=== PATIENT | female | born 1940 | race Caucasian/White ===

== ENCOUNTER 2020-05-10 06:54 | Outpatient (NON) | payer OTHER, SELFPAY ==
[2020-05-11 06:47] LABS: SARS-CoV-2 RNA PCR Negative
== END 2020-05-10 06:55 ==
PROVIDERS: PCP Family Medicine; Visit Provider Family Medicine
DX: Z20.828 Contact with and (suspected) exposure to other viral communicable diseases (principal)
CPT/HCPCS: 87635; C9803; U0003

== ENCOUNTER 2020-09-26 11:53 | Emergency (ER) | payer OTHER, SELFPAY ==
--- NOTE | ~2020-09-26 | CT_ITS ---
EXAMINATION: CT abd pelvis lumbar w con EXAM DATE: 09/26/2020 13:23 INDICATION: Generalized abdominal pain for 3 months. Low back pain. TECHNIQUE: Spiral CT of the abdomen and pelvis and lumbar spine was performed following intravenous i njection of 100 mL Omnipaque 350. Axial, coronal and sagittal images were reviewed of abdomen pelvis , and also of lumbar spine. The dose-length product (DLP) for this examination was 959.03 mGy-cm. T he exposure was tailored according to patient size (auto mA exposure control), and iterative reconstr uction (ASIR) was used as additional dose reduction technique. There is no prior study for compariso n. FINDINGS: There is a 2.5 cm hemangioma within segment 7, and 2 flash filling hemangiomas measuring ab out a centimeter in other segments. The liver, spleen, adrenal glands and pancreas are otherwise unre markable. Gallbladder is unremarkable. No biliary obstruction. Portal and splenic veins are paten t. Kidneys enhance symmetrically. There is no hydronephrosis. There is mild left renal atrophy. Th e uterus is not identified and has likely been surgically resected. The bladder is unremarkable. Th ere is no retroperitoneal or pelvic lymphadenopathy. There is moderate scattered arteriosclerotic d isease. The appendix is normal. The stomach and small bowel are unremarkable. There is moderate amount of c olonic stool. No free intraperitoneal gas. The heart is normal in size. There are no pericardial or pleural effusions. The lung bases are unremarkable. Lumbar spine demonstrates moderate disc disease L3-4 and moderate to severe at L5-S1. There is mild t o moderate disc disease L4-5 with 3 mm anterolisthesis. No spondylolysis. There are no osteoblastic o r osteolytic lesions identified. Mild lumbar levoscoliosis. T12-L1: Disc does not extend beyond the endplate margin. Facet arthropathy: None. Neural foraminal stenosis: No stenosis. Central canal stenosis: No stenosis. L1-L2: Disc does not extend beyond the endplate margin. Facet arthropathy: Mild. Neural foraminal stenosis: No stenosis. Central canal stenosis: No stenosis. L2-L3: There is a mild diffuse disc bulge. Facet arthropathy: Mild. Neural foraminal stenosis: No stenosis. Central canal stenosis: No stenosis. L3-L4: There is a mild to moderate diffuse disc bulge. Facet arthropathy: Severe right, moderate to severe left macro flavum. Neural foraminal stenosis: Moderate right, mild to moderate left. Central canal stenosis: Moderate. L4-L5: There is a mild to moderate diffuse disc bulge. Facet arthropathy: Severe bilateral. Ligamentum flavum enlargement. Neural foraminal stenosis: Moderate left, mild to moderate right. Central canal stenosis: Moderate. L5-S1: There is a mild diffuse disc bulge. Facet arthropathy: Moderate to severe bilateral. Neural foraminal stenosis: Moderate left, mild to moderate right. Central canal stenosis: Mild. IMPRESSION: 1. Liver hemangiomata. 2. Mild left renal atrophy. 3. Moderate ascending and transverse colonic stool. 4. Lumbar spondylosis. 5. No acute findings. Reviewed, dictated and finalized at location A.
--- NOTE | 2020-09-26 12:00 | ED.GENADULT ---
HPI - General Adult General Chief complaint: Unspecified Stated complaint: Chronic Pain All Over Time Seen by Provider: 09/26/20 11:59 History of Present Illness HPI narrative: Chronic low back pain for years. She was getting injections from pain management, but did not like the situation so she did not follow-up. She has a new pain management doctor, but says that they are not doing anything yet. She does have tramadol, but says she does not take it because it does not work. She has numerous medication allergies. She has also had abdominal pain for the past month. It is constant. She is supposed to see a GI doctor next week for this. She also reports that she does not usually wear normal clothes because the pressure on her skin causes too much pain. Related Data Home Medications Medication Instructions Recorded Confirmed omeprazole 20 mg capsule,delayed 20 mg PO DAILY 05/29/19 08/09/20 release ascorbate calcium (vitamin C) 500 500 mg PO DAILY 10/06/19 08/09/20 mg tablet aspirin 81 mg tablet,delayed 81 mg PO DAILY 10/06/19 08/09/20 release clobetasol 0.05 % topical ointment 1 applic TOPICAL BID 10/06/19 08/09/20 fish, borage, flaxseed oils-omega See Rx Instructions PO BID cap 10/06/19 08/09/20 3,6,9 comb no.1 1,200 mg capsule glucosamine [id number] See Rx Instructions PO DAILY 10/06/19 08/09/20 400 mg-200 mg-333 mg tablet tablet loratadine 10 mg tablet 10 mg PO DAILY 10/06/19 08/09/20 magnesium oxide 400 mg (241.3 mg 400 mg PO DAILY 10/06/19 08/09/20 magnesium) tablet multivitamin 1 tablet PO DAILY 10/06/19 08/09/20 naproxen sodium 220 mg tablet 440 mg PO BID tablet 10/06/19 08/09/20 turmeric root extract 500 mg 500 mg PO DAILY 10/06/19 08/09/20 capsule vitamin E (dl, acetate) 400 unit 400 unit PO DAILY 10/06/19 08/09/20 capsule Allergies Allergy/AdvReac Type Severity Reaction Status Date / Time doxycycline Allergy Severe Itching Verified 10/02/20 10:23 alprazolam Allergy Intermediate Other Verified 10/02/20 10:23 dexchlorpheniramine Allergy Intermediate Other Verified 10/02/20 10:23 minocycline Allergy Intermediate Itching, Verified 10/02/20 10:23 HIVES phenylephrine Allergy Intermediate Other Verified 10/02/20 10:23 scopolamine Allergy Intermediate Other Verified 10/02/20 10:23 amlodipine Allergy Mild Other Verified 10/02/20 10:23 brompheniramine Allergy Mild other Verified 10/02/20 10:23 carbinoxamine Allergy Mild Other Verified 10/02/20 10:23 carboxymethylcellulose sodium Allergy Mild Other Verified 10/02/20 10:23 duloxetine Allergy Mild Unknown Verified 10/02/20 10:23 indomethacin Allergy Mild Unknown Verified 10/02/20 10:23 linaclotide Allergy Mild Other Verified 10/02/20 10:23 nabumetone Allergy Mild Unknown Verified 10/02/20 10:23 propoxyphene Allergy Mild Itching Verified 10/02/20 10:23 rofecoxib Allergy Mild Swelling, Verified 08/27/20 14:52 WATER RETENTION sulfamethoxazole Allergy Mild Unknown Verified 08/27/20 14:52 terbinafine Allergy Mild Unknown Verified 08/27/20 14:52 terfenadine Allergy Mild Nausea Verified 08/27/20 14:52 tramadol Allergy Mild Other Verified 08/27/20 14:52 trimethoprim Allergy Mild Unknown Verified 08/27/20 14:52 valdecoxib Allergy Mild Unknown Verified 08/27/20 14:52 chlorpheniramine AdvReac Intermediate HARD TO Verified 08/27/20 14:52 AWAKEN phenylpropanolamine AdvReac Intermediate Other Verified 08/27/20 14:52 amitriptyline AdvReac Mild Other Verified 08/27/20 14:52 codeine AdvReac Mild Nervousness, Verified 08/27/20 14:52 HEART RACES, HEAD FEELS STRANGE diclofenac AdvReac Mild HEARTBURN Verified 08/27/20 14:52 levofloxacin AdvReac Mild Nausea and Verified 08/27/20 14:52 Vomiting oxybutynin AdvReac Mild Rash Verified 08/27/20 14:52 prednisone AdvReac Mild Weakness, Verified 08/27/20 14:52 Unable to Eat ramelteon AdvReac Mild Nausea Verified 08/27/20 14:52 trazodone AdvReac Mild Restless Verified 08/27/20 14:52
[2020-09-26 12:01] VITALS: BP 175/80; PULSE 82; RESP 15; TEMP 36.7; O2SAT 97
[2020-09-26 12:53] LABS: Basophils Percent Auto 0.4 % (0.2-1.2); Eosinophils Absolute Auto 0.1 K/mm3 (0-0.3); Eosinophils Percent Auto 1.6 % (0-4.4); Hemoglobin 12.3 g/dL (12.0-15.0); Immature Granulocyte Absolute 0.02 K/mm3 (0.00-0.031); Immature Granulocyte Percent A 0.4 % (0-0.5); Lymphocytes Absolute Auto 1.82 K/mm3 (0.9-3.2); Lymphocytes Percent Auto 32.4 % (18.3-44.2); Mean Corpuscular HGB Conc 34.2 g/dl (32-36); Mean Corpuscular Hemoglobin 30.8 pg (26-34); Mean Platelet Volume 9.8 fl (7.4-10.4); Monocytes Absolute Auto 0.8 K/mm3 (0.1-0.6); Monocytes Percent Auto 13.3 % (2.6-8.5); Neutrophils Absolute Auto 2.9 K/mm3 (1.3-6.7); Neutrophils Percent Auto 51.9 % (45.5-73.1); Platelet Count Result 261 k/mm3 (150-375); Red Cell Distribution Width 14.6 % (11.5-14.5); White Blood Count 5.6 K/mm3 (4.5-10.0)
[2020-09-26 13:13] LABS: Add Urine Microscopic? YES; Appearance Urine Cloudy (Clear); Bilirubin Urine Negative (Negative); Blood Urine Negative (Negative); Color Urine Yellow (Yellow); Glucose Urine UA Negative (Negative); Ketones Urine Negative (Negative); Leukocyte Esterase Ur Negative LEU/UL (Negative); Mucus Urine Rare /lpf; Nitrate Urine Negative (Negative); Protein Urine 1+ mg/dL (Negative); RBC Urine 0-2 /hpf (0-2); Specific Grav Ur 1.014 (1.001-1.035); Squamous Epithelial Cell Urine Many /hpf (Few); Urobilinogen Urine Negative mg/dL (<2.0); WBC Urine 0-3 /hpf
[2020-09-26 13:17] LABS: Estimated CRCL calculation 59 ml/min; Estimated Glomerular Filt Rate > 60
[2020-09-26 13:59] VITALS: BP 189/77; PULSE 88; RESP 16; O2SAT 99
[2020-09-26 14:15] LABS: Alanine Aminotransferase 15 U/L (4-35); Albumin Level 4.3 g/dL (3.5-5.1); Alkaline Phosphatase 63 U/L (38-126); Anion Gap 7 mmol/L (8-16); Aspartate Amino Transferase 23 U/L (14-36); Bilirubin,Total 0.4 mg/dL (0.2-1.3); Blood Urea Nitrogen 18 mg/dL (7-17); Calcium 9.1 mg/dL (8.4-10.2); Carbon Dioxide 33 mmol/L (22-30); Chloride 94 mmol/L (98-107); Estimated CRCL calculation 53 ml/min; Estimated Glomerular Filt Rate 60; Glucose 107 mg/dL (65-105); Lipase 141 U/L (23-300); Sodium 134 mmol/L (137-145)
[2020-09-26] MEDS: MAGNESIUM CITRATE 300 ML BTL PO (14:50)
[2020-09-26 15:23] LABS: Potassium 3.6 mmol/L (3.4-5.0)
[2020-09-26 16:45] VITALS: BP 180/90; PULSE 77; RESP 16; O2SAT 97
== END 2020-09-26 16:50 | disposition home or self-care (01) ==
PROVIDERS: Emergency Provider Emergency Medicine; PCP Family Medicine
DX: K59.00 Constipation, unspecified (principal); M54.5 Low back pain; G89.29 Other chronic pain; M79.7 Fibromyalgia; M35.3 Polymyalgia rheumatica; Z79.82 Long term (current) use of aspirin
CPT/HCPCS: 36415; 72132; 74177; 80053; 81001; 83690; 85025; 99284; A9270; Q9967

== ENCOUNTER 2020-10-03 10:47 | Outpatient (CLI) | payer OTHER, SELFPAY | END 2020-10-03 10:48 | disposition home or self-care (01) | LOC: ANHCOVIDVC 10:47 | PROVIDERS: PCP Family Medicine | DX: Z23 Encounter for immunization (principal) | CPT/HCPCS: 0001A; 91300 ==

== ENCOUNTER 2020-10-24 10:43 | Outpatient (CLI) | payer OTHER, SELFPAY | END 2020-10-24 10:44 | disposition home or self-care (01) | LOC: ANHCOVIDVC 10:43 | PROVIDERS: PCP Family Medicine | DX: Z23 Encounter for immunization (principal) | CPT/HCPCS: 0002A; 91300 ==

== ENCOUNTER → 2021-06-03 09:54 | Outpatient (CLI) | payer OTHER, SELFPAY ==
--- NOTE | ~2021-06-03 | XR_ITS ---
EXAMINATION: XR hip RT min 2V DATE: 06/03/2021 10:39 INDICATION: Right hip pain. TECHNIQUE: 2 views of right hip were obtained. COMPARISON: CT abdomen and pelvis 09/26/2020 FINDINGS: There is lumbar levocurvature and severe spondylosis. No fracture. Osteitis pubis is noted. There is mild right hip osteoarthritis. IMPRESSION: 1. Mild right hip osteoarthritis. Reviewed, dictated and finalized at location A. 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
== END ==
PROVIDERS: PCP Family Medicine; Visit Provider Nurse Practitioner Family
DX: M16.11 Unilateral primary osteoarthritis, right hip (principal); M86.8X8 Other osteomyelitis, other site; M47.816 Spondylosis without myelopathy or radiculopathy, lumbar region
CPT/HCPCS: 73502

== ENCOUNTER → 2022-07-27 15:26 | Outpatient (CLI) | payer OTHER, SELFPAY ==
--- NOTE | ~2022-07-27 | MR_ITS ---
MRI of the lumbar spine Clinical History: Back pain Technique: Axial T2-weighted images, and sagittal T1-weighted, T2-weighted, and T2 fat-sat images wer e acquired. COMPARISON: 07/21/2018 Findings: No acute fracture evident. There is probable minimal grade 1 anterolisthesis of L3 over L4. There is severe L3-L4 degenerative disc change with probable reactive marrow edema signal about this disc space. No definite evidence for osteomyelitis/discitis. No aggressive lesion clearly identified . Remaining bone marrow signals are essentially unremarkable. At L1-L2, there is no disc bulge or herniation. There is mild facet joint degenerative change. No spi nal canal stenosis or neural foraminal narrowing. At L2-L3, there is no disc bulge or herniation. There is mild facet joint degenerative change. There is no spinal canal stenosis or neural foraminal narrowing. At L3-L4, there is disc bulge and facet arthropathy, resulting in focal moderate thecal sac compressi on. There is severe right neural foraminal compromise and mild left neural foraminal compromise. At L4-L5, there is disc bulge and facet arthropathy. No spinal canal stenosis. There is severe left n eural foraminal compromise and mild right neural foraminal compromise. At L5-S1, there is left foraminal disc bulge. There is facet arthropathy. No spinal canal stenosis. T here is severe left neural foraminal narrowing. Right neural foramen preserved. Paravertebral soft tissues are unremarkable. Impression: Severe degenerative disc change at L3-L4 with associated reactive marrow signal changes and minimal g rade 1 anterolisthesis. Multifactorial moderate thecal sac compression L3-L4 with bilateral neural foraminal narrowing, right worse than left. Severe left neural foraminal narrowing at L4-L5 and L5-S1. Reviewed, dictated and finalized at location . N GROWER Impression: Severe degenerative disc change at L3-L4 with associated reactive marrow signal changes and minimal grade 1 anterolisthesis. Multifactorial moderate thecal sac compression L3-L4 with bilateral neural fora lacho narrowing, right worse than left. Severe left neural foraminal narrowing at L4-L5 and L5-S1.
== END ==
PROVIDERS: PCP Emergency Medicine; Visit Provider Emergency Medicine
DX: M48.07 Spinal stenosis, lumbosacral region (principal); M54.9 Dorsalgia, unspecified; G89.29 Other chronic pain; G95.20 Unspecified cord compression
CPT/HCPCS: 72148

== ENCOUNTER 2023-02-02 09:28 | Outpatient (CLI) | payer OTHER, SELFPAY ==
--- NOTE | 2023-02-02 09:33 | ECG_ITS ---
Measurements Intervals [place] Rate: 67 P: 27 MT: 154 QRS: -10 QRSD: 97 T: 61 QT: 417 QTc: 442 Interpretive Statements SINUS RHYTHM MODERATE VOLTAGE CRITERIA FOR LVH, CONSIDER NORMAL VARIANT [MEETS CRITERIA IN ONE OF: R(aVL), S(V1), R(V5), R(V5/V6)+S(V1)] NO PREVIOUS ECG AVAILABLE FOR COMPARISON Electronically Signed On 02-02-2023 14:40:33 CDT by Faby Grant M.D.
[2023-02-02 10:14] LABS: Appearance Urine Cloudy (Clear); Bacteria Urine Rare /hpf; Bilirubin Urine Negative (Negative); Blood Urine Negative (Negative); Color Urine Yellow (Yellow); Glucose Urine UA Negative (Negative); Ketones Urine Negative (Negative); Leukocyte Esterase Ur 2+ LEU/UL (Negative); Nitrate Urine Negative (Negative); Non Pathogenic Casts 0-2; Protein Urine Negative (Negative); RBC Urine 0-2 /hpf (0-2); Specific Grav Ur 1.011 (1.001-1.035); Squamous Epithelial Cell Urine Moderate /hpf (Few); Urobilinogen Urine 0.2 mg/dL (<2.0); WBC Urine 21-50 /hpf
[2023-02-02 10:23] LABS: INR 0.9; Partial Thromboplastin Time 28.3 SECONDS (22.3-36.8); Prothrombin Time 12.8 Seconds (11.1-14.7)
[2023-02-02 10:24] LABS: Alanine Aminotransferase 24 U/L (6-35); Albumin Level 4.7 g/dL (3.5-5.1); Alkaline Phosphatase 61 U/L (38-126); Anion Gap 7 mmol/L (8-16); Aspartate Amino Transferase 27 U/L (14-36); Bilirubin,Total 0.4 mg/dL (0.2-1.3); Blood Urea Nitrogen 22 mg/dL (7-17); Calcium 9.4 mg/dL (8.4-10.2); Carbon Dioxide 34 mmol/L (22-30); Chloride 96 mmol/L (98-107); Estimated Glomerular Filt Rate 60; Glucose 151 mg/dL (65-110); Potassium 3.5 mmol/L (3.4-5.0); Sodium 137 mmol/L (137-145)
[2023-02-02 10:28] LABS: Add Urine Microscopic? YES
== END 2023-02-02 09:29 | disposition home or self-care (01) ==
LOC: ANHSURGERY 09:31
PROVIDERS: PCP Emergency Medicine; Visit Provider Anesthesiology Pain Medicine
DX: M48.062 Spinal stenosis, lumbar region with neurogenic claudication (principal); I10 Essential (primary) hypertension; G89.4 Chronic pain syndrome; Z01.818 Encounter for other preprocedural examination
CPT/HCPCS: 36415; 80053; 81001; 85610; 85730; 87086; 87088; 93005

== ENCOUNTER 2023-02-04 14:17 | Outpatient (CLI) | payer OTHER, SELFPAY ==
--- NOTE | ~2023-02-04 | XR_ITS ---
EXAMINATION: XR chest 2V Exam Date/Time: 02/04/2023 14:35 CDT HISTORY: SPINAL STENOSIS LUMBAR REGION W NEUROGENIC CLAUDICATION Comparison: 06/20/2018. RESULT: Lines, tubes, and devices: None. Lungs and pleura: Senescent changes, otherwise clear. Cardiomediastinal silhouette: Stable. Other: No acute osseous or upper abdominal finding. IMPRESSION: No acute cardiopulmonary process. Reviewed, dictated and finalized at location K.
== END 2023-02-04 14:18 | disposition home or self-care (01) ==
PROVIDERS: PCP Emergency Medicine; Visit Provider Anesthesiology Pain Medicine
DX: M48.062 Spinal stenosis, lumbar region with neurogenic claudication (principal)
CPT/HCPCS: 71046

== ENCOUNTER 2023-02-08 00:58 | Day surgery (SDC) | payer OTHER, SELFPAY ==
[2023-01-28 15:08] VITALS: BMI 31.1
--- NOTE | 2023-01-28 15:30 | PC.NURSE ---
PRE-OP INSTRUCTIONS, PLEASE READ CAREFULLY Report to the Outpatient Waiting Room, entrance under the green pavilion located off [facility], at time _1000_ on date _02/08/23_. Planned Procedure Time: _1200_. Time changes happen often and if your time is changed the preop area will call you the afternoon before. - You and your visitor will be asked to self-screen and do not enter if you have any COVID symptoms. - A mask is optional within the hospital at this time. Patients may have clear liquids (water, carbonated beverages, clear teas, apple juice) until 3 hours prior to surgery (0900 AM) with a maximum of 20 ounces. - No food from midnight until time of surgery Take the following medications with a SIP of water the morning of surgery: _AMLODIPINE, GABAPENTIN, LEVOTHYROXINE, METOPROLOL, EYE DROPS, & TYLENOL IF NEEDED__ DO NOT STOP ANY OF YOUR OTHER PRESCRIPTION MEDICATIONS PRIOR TO SURGERY ?EXCEPT THE FOLLOWING Medications to discontinue per DR. ROSADO - _ASPIRIN 7 DAYS PRIOR TO SURGERY, Date to take last dose 01/31/23_ Medications to discontinue per ANESTHESIA -_MULTIVITAMIN AND OVER THE COUNTER MEDICATION 3 DAYS PRIOR TO SURGERY, Date to take last dose 02/04/23_ Please no make-up, nail mongolian, hairspray, perfume, deodorant, or body powder the day of surgery. No jewelry (including any body piercings) or valuables the day of surgery, leave them at home. Please take a shower or bath the night before, or the morning of, surgery with an antibacterial soap. Wear comfortable, loose fitting clothing. - Jewelry must be removed prior to entering the operating room. Rings and piercings that are not removed may be cut off. - The hospital will not accept responsibility for valuables. - Please leave all valuables, including medications, at home the day of surgery. If you are going home after surgery, a licensed driver sales must drive you home. - NO public transportation without another adult if you receive anesthesia. - We recommend that an adult stay with you for 24 hours following discharge. - We also recommend that you do not drive, make important decision, drink alcoholic beverages, or take any drugs that were not prescribed by your health care provider for at least 24 hours after your discharge time. Follow any additional instructions given to you from your surgeon. If you or anyone in your household have experienced Covid symptoms in the past week, please notify your surgeon or the nurse liaison at the phone number below for possible testing. Telephone instructions given to _PATIENT_and asked if any additional questions and then verbalized understanding. Patient advised to call surgeon office or pre surgery nurse liaison [phone] if any additional questions.
[2023-02-08] VITALS (9 sets, daily range): BP systolic 118–148; BP diastolic 48–87; PULSE 66–76; RESP 12–16; TEMP 36.2–36.3; O2SAT 97–100
--- NOTE | ~2023-02-08 | XR_ITS ---
EXAMINATION: XR fluoroscopy no charge DATE: 02/08/2023 13:36 INDICATION: Lumbar decompression TECHNIQUE: 3 fluoroscopic images of the lumbar spine were obtained during procedure performed by Dr. Streeter. Radiologist was not present for the imaging or procedure. The amount of fluoroscopy time used d uring this procedure was 12.6 minutes. COMPARISON: None. FINDINGS: Severe spondylosis in the mid to lower lumbar spine with grade 1 anterolisthesis L3 on L4 a nd L4 on L5. Metallic probe projects over the posterior elements at the level of L4-L5. IMPRESSION: 1. Fluoroscopy utilized during neurosurgical procedure at the lumbar spine. See procedure note for fu rther detail. Reviewed, dictated and finalized at location A. IMPRESSION: 1. Fluoroscopy utilized during neurosurgical procedure at the lumbar spine. See procedure note for further detail.
--- NOTE | 2023-02-08 09:53 | WPDHPUPDATE1 ---
History and Physical Update Update Date/Time: 02/08/23 09:53 History and Physical has been reviewed, including an updated exam of the patient. There are NO changes in the patient's condition. Risks, benefits, and alternatives have been discussed and questions answered. Patient agrees to proceed with procedure.
[2023-02-08] MEDS: LACTATED RINGERS 1,000 ML 30 ML IV CONT (10:45)
--- NOTE | 2023-02-08 10:47 | WPDANESEPPF ---
Anes - Initial Pre Proc Eval Procedure: Operation Date: 02/08/23 12:00 Proposed Procedures p Minimal Invasive Lumbar Decompression - Galileo Streeter MD Date/Time: 02/08/23 10:47 Surgeon: Galileo Streeter MD Pre Op Diagnosis: chronic pain, fibromyalgia Patient Data Age: 82 Gender: F Height: 1.71 m Weight: 93.6 kg Last Vital Signs Temp 36.2 C L 02/08/23 10:28 Pulse 67 02/08/23 10:28 Resp 16 02/08/23 10:28 BP 131/70 02/08/23 10:28 Pulse Ox 98 02/08/23 10:28 O2 Del Method Room Air 02/08/23 10:28 Allergies Allergy/AdvReac Type Severity Reaction Status Date / Time doxycycline Allergy Severe Itching Verified 02/08/23 10:15 alprazolam Allergy Intermediate Other-UNABLE Verified 02/08/23 10:15 TO RECALL dexchlorpheniramine Allergy Intermediate Other-ZEUS Verified 02/08/23 10:15 RGY minocycline Allergy Intermediate Itching, Verified 02/08/23 10:15 HIVES phenylephrine Allergy Intermediate Other-ZEUS Verified 02/08/23 10:15 RGY scopolamine Allergy Intermediate Other-ZEUS Verified 02/08/23 10:15 RGY brompheniramine Allergy Mild other- TOO Verified 02/08/23 10:15 DRYING carbinoxamine Allergy Mild Other- TOO Verified 02/08/23 10:15 DRYING carboxymethylcellulose sodium Allergy Mild Other-UNABLE Verified 02/08/23 10:15 TO RECALL duloxetine Allergy Mild Unknown-UNABLE Verified 02/08/23 10:15 TO RECALL indomethacin Allergy Mild Unknown-UNABLE Verified 02/08/23 10:15 TO RECALL linaclotide Allergy Mild Other-UNABLE Verified 02/08/23 10:15 TO RECALL nabumetone Allergy Mild Unknown-UNABLE Verified 02/08/23 10:15 TO RECALL propoxyphene Allergy Mild Itching Verified 02/08/23 10:15 rofecoxib Allergy Mild Swelling, Verified 02/08/23 10:15 WATER RETENTION sulfamethoxazole Allergy Mild Unknown-UNABLE Verified 02/08/23 10:15 TO RECALL terbinafine Allergy Mild Unknown-UNABLE Verified 02/08/23 10:15 TO RECALL terfenadine Allergy Mild Nausea Verified 02/08/23 10:15 tramadol Allergy Mild Other-UNABLE Verified 02/08/23 10:15 TO RECALL valdecoxib Allergy Mild Unknown-UNABLE Verified 02/08/23 10:15 TO RECALL chlorpheniramine AdvReac Intermediate HARD TO Verified 02/08/23 10:15 AWAKEN phenylpropanolamine AdvReac Intermediate Other- IMMU Verified 02/08/23 10:15 NE amitriptyline AdvReac Mild Other-ZEUS Verified 02/08/23 10:15 RGY codeine AdvReac Mild Nervousness, Verified 02/08/23 10:15 HEART RACES, HEAD FEELS STRANGE diclofenac AdvReac Mild HEARTBURN Verified 02/08/23 10:15 levofloxacin AdvReac Mild Nausea and Verified 02/08/23 10:15 Vomiting oxybutynin AdvReac Mild Rash Verified 02/08/23 10:15 ramelteon AdvReac Mild Nausea Verified 02/08/23 10:15 trazodone AdvReac Mild Restless Verified 02/08/23 10:15 Sleep pregabalin [From Lyrica] AdvReac Unknown does not Verified 02/08/23 10:15 remember gabapentin AdvReac does not Verified 02/08/23 10:15 remember LODINE Allergy Unknown UNKNOWN-UNABLE Uncoded 02/08/23 10:15 TO RECALL TRINALIN AdvReac Unknown NAUSEA Uncoded 02/08/23 10:15 Home Medications Medication Instructions Recorded Confirmed Type omeprazole 20 mg capsule,delayed 20 mg PO DAILY 05/29/19 01/28/23 History release glucosamine [id number] See Rx Instructions PO DAILY 10/06/19 01/28/23 History 400 mg-200 mg-333 mg tablet magnesium oxide 400 mg (241.3 mg 400 mg PO DAILY 10/06/19 01/28/23 History magnesium) tablet (MagOx) multivitamin 1 tablet PO DAILY 10/06/19 01/28/23 History vitamin E (dl, acetate) 180 mg 400 unit PO DAILY 10/06/19 01/28/23 History (400 unit) capsule ascorbate calcium (vitamin C) 500 500 mg PO BID 07/31/21 01/28/23 History mg tablet aspirin 81 mg tablet,delayed 81 mg PO .Every other day 07/31/21 01/28/23 History release metoprolol succinate 100 mg See Rx Instructions .Route 11/24/21 01/28/23 Rx tablet,ext
[2023-02-08] MEDS: ceFAZolin 2 GM/D5W 50 ML 2 GM/50 ML BAG IVPB (12:08)
[2023-02-08] MEDS: LIDOCAINE HCL 1% LOCAL INJ 20 ML VIAL INFILTRATE (12:37)
[2023-02-08] MEDS: BUPIVACAINE/EPINEPHRINE 0.5% 50 ML VIAL 20 ML INFILTRATE (12:39)
--- NOTE | 2023-02-08 13:42 | WPDHPUPDATE1 ---
History and Physical Update Update Date/Time: 02/08/23 13:42 History and Physical has been reviewed, including an updated exam of the patient. There are NO changes in the patient's condition. Risks, benefits, and alternatives have been discussed and questions answered. Patient agrees to proceed with procedure.
--- NOTE | 2023-02-08 16:24 | W.PM.PROC2 ---
Procedure Note - Detailed Date of Procedure 02/08/23 Pre-op Diagnosis Lumbar spinal stenosis with intermittent neurogenic claudication Post-op Diagnosis Same Procedure Performed Bilateral L3-4, L4-5 minimally invasive lumbar decompression (MILD) with fluoroscopy. Surgeon Galileo Streeter MD Anesthesia General and Local Description of Procedure INFORMED CONSENT: Risks, benefits, and alternatives to the procedure were discussed in detail with the patient who expressed explicit understanding and consent to proceed. Risks discussed with the patient included but were not limited to risk of serious local or systemic infection, bleeding/bruising, epidural hematoma, dural puncture or tear resulting in CSF leak and acute or chronic post-dural puncture headache, scarring/deformity, immediate or delayed allergic reaction, decreased mobility, failure to treat pain, inadvertent neurologic injury resulting in increased pain, weakness/paralysis or numbness, inadvertent organ injury, need for additional surgery, allergic reaction, heart attack, stroke, seizure, coma, . Anesthetic risks were also briefly discussed by myself and the pt skilled. The patient expressed understanding and consent to proceed, agreeing that potential benefits outweigh risk of harm. All materials required for the procedure were immediately available prior to procedure start. Site and side were confirmed with the patient, compared carefully to the patient chart and consent, and marked prior to transport to the operating room. Appropriate time out procedure was performed per protocol prior to procedure start. PROCEDURE IN DETAIL: The patient was brought to the operative suite and placed in the supine position. Appropriate ASA standard monitors were attached. Anesthesia was initiated without difficulty or event. Eyes were protected. Patient was transitioned to the prone position. Pressure points were padded with joints in neutral position. When appropriate, breasts and genitals were evaluated and protected. Eyes were checked and were free from undue pressure. Skin overlying the procedure site was marked with sterile marker. Surgical area was prepared in a typical sterile fashion with ChloraPrep and allowed to dry for at least 3 minutes prior to sterilely draping the surgical site. The lumbar spine was identified in the AP fluoroscopic view with slight cephalad tilt perfectly aligning the endplates at the targeted levels with spinous processes bisecting the transpedicular plane. After identifying the intended incision site approximately 1.5 levels inferior to the level of interest, the area was anesthetized by infiltration with no more than 10ml of a 1:1 admixture of 0.5% PF bupivacaine with epinephrine and 2% PF lidocaine with epinepherine via a 27-gauge needle after negative aspiration. A 22-gauge spinal needle was used to provide additional and adequate local anesthesia to the level of the interspinous ligament, ligamentum flavum and the periosteum of the lamina at the intended treatment levels. In the AP view, a #11 scalpel blade was used to create a single stab incision at the intended incision site on the targeted side. The Vertos MILD kit was opened and the included cannula and trocar assembly was advanced through the incision to contact the midportion of the right lamina just adjacent to the spinous process at L5. Once seated, the lateral view was used to gauge depth demonstrating the most anterior tip of the trocar posterior to the epidural space at all times. The lacquer dipping machine operator-provided cannula stabilizer was placed over the trocar flush to the patient's lumbar flank. Cannula obturator with handle was removed. Included depth guide was then attached to the insertion port on the cannula and set to an intial depth of 15 mm. The bone rongeur was advanced to the depth of the lumbar lamina at the targeted level. Depth gauge was then adjusted allowing rongeur tip to advance in the contralateral o
[2023-02-08 17:18] LABS: Glucose Point of Care 121 mg/dl (65-105)
== END 2023-02-08 15:20 | disposition home or self-care (01) ==
PROVIDERS: PCP Emergency Medicine; Visit Provider Anesthesiology Pain Medicine
PROC: (CPT 0275T; principal; 2023-02-08 12:00)
DX: M48.062 Spinal stenosis, lumbar region with neurogenic claudication (principal); G89.29 Other chronic pain; M79.7 Fibromyalgia; G47.30 Sleep apnea, unspecified; M35.3 Polymyalgia rheumatica; Z79.82 Long term (current) use of aspirin; E66.9 Obesity, unspecified; Z68.31 Body mass index [BMI] 31.0-31.9, adult; Z00.6 Encounter for examination for normal comparison and control in clinical research program
CPT/HCPCS: 0275T; 82948; 99199; C1889; J0690; J2405; J2704; J3010; J7120

== ENCOUNTER 2023-02-15 10:32 | Outpatient (CLI) | payer OTHER, SELFPAY ==
[2023-02-15 13:45] LABS: Basophils Percent Auto 0.4 % (0.2-1.2); Eosinophils Absolute Auto 0.1 K/mm3 (0-0.3); Eosinophils Percent Auto 2.4 % (0-4.4); Hematocrit 34.5 % (37.0-47.0); Immature Granulocyte Absolute 0.02 K/mm3 (0.00-0.031); Immature Granulocyte Percent A 0.4 % (0-0.5); Lymphocytes Percent Auto 38.8 % (18.3-44.2); Mean Corpuscular HGB Conc 31.9 g/dl (32-36); Mean Corpuscular Hemoglobin 31.4 pg (26-34); Mean Corpuscular Volume 98.6 fl (80-100); Mean Platelet Volume 10.4 fl (7.4-10.4); Monocytes Absolute Auto 0.5 K/mm3 (0.1-0.6); Monocytes Percent Auto 9.8 % (2.6-8.5); Neutrophils Absolute Auto 2.4 K/mm3 (1.3-6.7); Neutrophils Percent Auto 48.2 % (45.5-73.1); Platelet Count Result 241 k/mm3 (150-375); Red Cell Distribution Width 15.6 % (11.5-14.5); White Blood Count 4.9 K/mm3 (4.5-10.0)
[2023-02-15 13:54] LABS: Appearance Urine Cloudy (Clear); Bacteria Urine 1+ /hpf; Bilirubin Urine Negative (Negative); Blood Urine Negative (Negative); Color Urine Yellow (Yellow); Glucose Urine UA Negative (Negative); Ketones Urine Negative (Negative); Leukocyte Esterase Ur 1+ LEU/UL (Negative); Need Manual Microscopic Reviewed; Nitrate Urine Negative (Negative); Non Pathogenic Casts 0-2; Protein Urine Negative (Negative); Specific Grav Ur 1.015 (1.001-1.035); Squamous Epithelial Cell Urine Moderate /hpf (Few); Urobilinogen Urine 0.2 mg/dL (<2.0); pH Urine 6.5 (5.0-9.0)
[2023-02-15 13:55] LABS: Add Urine Microscopic? YES
== END 2023-02-15 10:33 | disposition home or self-care (01) ==
LOC: ANHGOSHLAB 10:34
PROVIDERS: PCP Emergency Medicine; Visit Provider Anesthesiology Pain Medicine
DX: N34.3 Urethral syndrome, unspecified (principal); R53.81 Other malaise; R53.83 Other fatigue
CPT/HCPCS: 36415; 81001; 85025; 87086; 87088

== ENCOUNTER → 2023-07-23 09:58 | Outpatient (CLI) | payer OTHER, SELFPAY ==
--- NOTE | ~2023-07-23 | CT_ITS ---
EXAMINATION: CT brain wo con DATE: 07/23/2023 10:14 INDICATION: Dizziness, giddiness TECHNIQUE: Computed tomography (CT) of the head was performed without intravenous contrast. The mA wa s adjusted according to patient size. Iterative reconstruction technique was employed. Exam dose: 64 5.69 mGy-cm total exam DLP. COMPARISON: 03/24/2018 MRI brain/brainstem 10/13/2012 CT Brain FINDINGS: No intracranial mass lesion or hemorrhage or recent cerebrovascular accident since 3 is detected. No intracranial mass lesion or hemorrhage, midline shift or mass effect. There are bilateral carotid siphon internal carotid artery calcifications. Ventricular size is within normal limits. No subdural or epidural hematoma. No fracture or bone destruction of the cranial vault. The mastoid air cells and included paranasal sinuses are normally developed and aerated. No fracture or bone destruction of the cranial vault. IMPRESSION: No acute intracranial finding or significant change since October 13, 2012 Reviewed, dictated and finalized at Location A. Reviewed, dictated and finalized at location B. 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
== END ==
PROVIDERS: PCP Emergency Medicine; Visit Provider Emergency Medicine
DX: R42 Dizziness and giddiness (principal); I25.10 Atherosclerotic heart disease of native coronary artery without angina pectoris
CPT/HCPCS: 70450

== ENCOUNTER 2023-07-23 10:15 | Outpatient (CLI) | payer OTHER, SELFPAY ==
[2023-07-23 18:57] LABS: Basophils Percent Auto 0.6 % (0.2-1.2); Eosinophils Absolute Auto 0.1 K/mm3 (0-0.3); Eosinophils Percent Auto 2.3 % (0-4.4); Hematocrit 35.7 % (37.0-47.0); Hemoglobin 10.9 g/dL (12.0-15.0); Immature Granulocyte Absolute 0.01 K/mm3 (0.00-0.031); Immature Granulocyte Percent A 0.2 % (0-0.5); Lymphocytes Absolute Auto 2.07 K/mm3 (0.9-3.2); Lymphocytes Percent Auto 40.3 % (18.3-44.2); Mean Corpuscular HGB Conc 30.5 g/dl (32-36); Mean Corpuscular Hemoglobin 30.9 pg (26-34); Mean Corpuscular Volume 101.1 fl (80-100); Mean Platelet Volume 9.9 fl (7.4-10.4); Monocytes Absolute Auto 0.6 K/mm3 (0.1-0.6); Monocytes Percent Auto 10.7 % (2.6-8.5); Neutrophils Absolute Auto 2.4 K/mm3 (1.3-6.7); Neutrophils Percent Auto 45.9 % (45.5-73.1); Platelet Count Result 227 k/mm3 (150-375); Red Blood Count 3.53 M/mm3 (4.2-5.4); Red Cell Distribution Width 16.6 % (11.5-14.5); White Blood Count 5.1 K/mm3 (4.5-10.0)
== END 2023-07-23 10:16 | disposition home or self-care (01) ==
PROVIDERS: PCP Emergency Medicine; Visit Provider Emergency Medicine
DX: R42 Dizziness and giddiness (principal)
CPT/HCPCS: 36415; 85025

== ENCOUNTER 2024-01-27 08:53 | Outpatient (CLI) | payer OTHER, SELFPAY ==
--- NOTE | ~2024-01-27 | PE_ITS ---
EXAMINATION: PET skull to mid thigh DATE: 01/27/2024 14:33 INDICATION: Multiple myeloma not having achieved remission. TECHNIQUE: Blood glucose level was 88 mg/dL. 9.262 mCi of 18-fluorodeoxyglucose (18-FDG) was administ ered i.v. Low dose computed tomography (CT) images were acquired from the base of the brain to the pr oximal thighs for attenuation correction and anatomic localization. Automated exposure control was em ployed. Dose-length product (DLP) was 1232 mGy-cm. Positron emission tomography (PET) images were acq uired in the same distribution. COMPARISON: None FINDINGS: Head/neck: There are likely changes of ocular lens replacement surgeries. There are no pathologically enlarged lymph nodes. Chest: The lungs demonstrate mild atelectasis. No pleural effusion. The heart size is normal. There a re coronary artery calcifications. No pericardial effusion. Abdomen/pelvis/proximal thighs: The there is a 13 mm cyst in the liver. The gallbladder, spleen, panc reas, adrenal glands, and kidneys are normal. There are no dilated loops of bowel. The appendix is no rmal. There are no pathologically enlarged lymph nodes. There is no free intraperitoneal fluid. There are no lytic lesions of bone to suggest multiple myeloma. IMPRESSION: 1. No specific evidence of multiple myeloma. Reviewed, dictated and finalized at location A.
[2024-01-27 09:47] LABS: Glucose Point of Care 88 mg/dl (65-105)
== END 2024-01-27 08:54 | disposition home or self-care (01) ==
PROVIDERS: PCP Emergency Medicine; Visit Provider Internal Medicine Hematology & Oncology
DX: C90.00 Multiple myeloma not having achieved remission (principal)
CPT/HCPCS: 78815; A9552

== ENCOUNTER 2024-01-28 09:20 | Outpatient (CLI) | payer OTHER, SELFPAY ==
[2024-01-28 10:06] LABS: Basophils Percent Auto 0.3 % (0.2-1.2); Eosinophils Absolute Auto 0.2 K/mm3 (0-0.3); Eosinophils Percent Auto 3.2 % (0-4.4); Hematocrit 33.7 % (37.0-47.0); Hemoglobin 11.5 g/dL (12.0-15.0); Immature Granulocyte Absolute 0.04 K/mm3 (0.00-0.031); Immature Granulocyte Percent A 0.6 % (0-0.5); Lymphocytes Absolute Auto 1.23 K/mm3 (0.9-3.2); Lymphocytes Percent Auto 19.8 % (18.3-44.2); Mean Corpuscular HGB Conc 34.1 g/dl (32-36); Mean Corpuscular Hemoglobin 33.7 pg (26-34); Mean Corpuscular Volume 98.8 fl (80-100); Mean Platelet Volume 10.5 fl (7.4-10.4); Monocytes Absolute Auto 0.4 K/mm3 (0.1-0.6); Monocytes Percent Auto 5.8 % (2.6-8.5); Neutrophils Absolute Auto 4.4 K/mm3 (1.3-6.7); Neutrophils Percent Auto 70.3 % (45.5-73.1); Platelet Count Result 209 k/mm3 (150-375); Red Blood Count 3.41 M/mm3 (4.2-5.4); Red Cell Distribution Width 16.2 % (11.5-14.5); White Blood Count 6.2 K/mm3 (4.5-10.0)
[2024-01-28 10:08] LABS: Prothrombin Time 13.3 Seconds (11.1-14.7)
[2024-01-28 10:09] LABS: Partial Thromboplastin Time 24.4 Seconds (22.3-36.8)
[2024-01-28 10:20] LABS: Anion Gap 14 mmol/L (4-12); Blood Urea Nitrogen 23 mg/dL (7-17); Calcium 9.3 mg/dL (8.4-10.2); Carbon Dioxide 24 mmol/L (22-30); Chloride 90 mmol/L (98-107); Estimated Glomerular Filt Rate 47; Glucose 116 mg/dL (65-110); Potassium 3.7 mmol/L (3.4-5.0); Sodium 128 mmol/L (137-145)
== END 2024-01-28 09:21 | disposition home or self-care (01) ==
PROVIDERS: Anesthesiology; PCP Emergency Medicine; Visit Provider Surgery
DX: Z01.818 Encounter for other preprocedural examination (principal); C90.00 Multiple myeloma not having achieved remission; E11.69 Type 2 diabetes mellitus with other specified complication; E66.9 Obesity, unspecified; Z51.81 Encounter for therapeutic drug level monitoring
CPT/HCPCS: 36415; 80048; 85025; 85610; 85730

== ENCOUNTER 2024-01-31 02:58 | Day surgery (SDC) | payer OTHER, SELFPAY ==
[2024-01-27 12:49] VITALS: BMI 32.1
--- NOTE | 2024-01-27 14:02 | PC.NURSE ---
Report to the Outpatient Waiting Room, entrance under the green pavilion located off [facility], at time ____10:00am___ on date ___01/31/24____. Planned Procedure Time: __12:00pm . Time changes happen often and if your time is changed the preop area will call you the afternoon before. - You and your visitor will be asked to self-screen and do not enter if you have any COVID symptoms. - A mask is optional within the hospital at this time. Patients may have clear liquids (water, carbonated beverages, clear teas, apple juice) until 3 hours prior to surgery with a maximum of 20 ounces. - No food from midnight until time of surgery Take the following medications with a SIP of water the morning of surgery: ____Gabapentin, Levothyroxine, Metoprolol DO NOT STOP ANY OF YOUR OTHER PRESCRIPTION MEDICATIONS PRIOR TO SURGERY ?EXCEPT THE FOLLOWING Medications to discontinue per physician All Vitamins, supplements, probiotics hold 3 days prior per Anesthesia Date to take last dose___01/27/24 Please no make-up, nail citizen of [place], hairspray, perfume, deodorant, or body powder the day of surgery. No jewelry (including any body piercings) or valuables the day of surgery, leave them at home. Please take a shower or bath the night before, or the morning of, surgery with an antibacterial soap. Wear comfortable, loose fitting clothing. - Jewelry must be removed prior to entering the operating room. Rings and piercings that are not removed may be cut off. - The hospital will not accept responsibility for valuables. - Please leave all valuables, including medications, at home the day of surgery. If you are going home after surgery, a licensed freight delivery driver must drive you home. - NO public transportation without another adult if you receive anesthesia. - We recommend that an adult stay with you for 24 hours following discharge. - We also recommend that you do not drive, make important decision, drink alcoholic beverages, or take any drugs that were not prescribed by your health care provider for at least 24 hours after your discharge time. Follow any additional instructions given to you from your surgeon. If you or anyone in your household have experienced Covid symptoms in the past week, please notify your surgeon or the nurse liaison at the phone number below for possible testing. Telephone instructions given to __patient and asked if any additional questions and then verbalized understanding. Patient advised to call surgeon office or pre surgery nurse liaison [phone] if any additional questions.
--- NOTE | ~2024-01-31 | XR_ITS ---
EXAMINATION: XR fl guide central line place DATE: 01/31/2024 12:52 INDICATION: Port placement. TECHNIQUE: A single intraoperative fluoroscopic view of the chest was obtained. I was not present. Fl uoroscopy exposure time was 59 seconds. COMPARISON: Chest single view 01/31/2024 FINDINGS: There is a left internal jugular port with tip in superior vena cava. IMPRESSION: 1. Port tip in superior vena cava. Reviewed, dictated and finalized at location A.
--- NOTE | ~2024-01-31 | XR_ITS ---
EXAMINATION: XR chest port-a-cath/central DATE: 01/31/2024 13:07 INDICATION: Port placement. TECHNIQUE: A single frontal view of the chest was obtained. COMPARISON: PET/CT 01/27/2024 FINDINGS: There is mild atelectasis in left lower lung zone. No pleural effusion or pneumothorax. The heart size is normal. There is a left internal jugular port with tip in azygos vein. IMPRESSION: 1. Port tip in azygos vein. Reviewed, dictated and finalized at location A. IMPRESSION: 1. Port tip in azygos vein.
[2024-01-31 09:55] VITALS: BP 152/76; PULSE 64; RESP 18; TEMP 36.6; O2SAT 97
[2024-01-31 10:50] LABS: Glucose Point of Care 96 mg/dl (65-105)
[2024-01-31 10:58] VITALS: BMI 32.6
[2024-01-31] MEDS: LACTATED RINGERS 1,000 ML 30 ML IV CONT (11:00)
[2024-01-31] MEDS: KETOROLAC 15 MG/ML VIAL (*BKC) IV PUSH (11:08)
[2024-01-31 11:27] LABS: Sodium 132 mmol/L (137-145)
--- NOTE | 2024-01-31 11:30 | SUR.PREOP ---
1130- Notified Dr. Carpenter patient's sodium 132 from today's lab work and list given of medications patient this AM. Per Dr. Carpenter OK to proceed with procedure.
--- NOTE | 2024-01-31 11:30 | WPDANESEPPF ---
Anes - Initial Pre Proc Eval Procedure: Operation Date: 01/31/24 12:00 Proposed Procedures p Insertion Kirsty Cath - Martha Yepez MD Date/Time: 01/31/24 11:30 Surgeon: Martha Yepez MD Pre Op Diagnosis: multiple myeloma Patient Data Age: 83 Gender: F Height: 1.73 m Weight: 97.4 kg Last Vital Signs Temp 97.8 F 01/31/24 09:55 Pulse 64 01/31/24 09:55 Resp 18 01/31/24 09:55 BP 152/76 H 01/31/24 09:55 Pulse Ox 97 01/31/24 09:55 O2 Del Method Room Air 01/31/24 09:55 Allergies Allergy/AdvReac Type Severity Reaction Status Date / Time doxycycline Allergy Severe Itching Verified 01/31/24 10:57 alprazolam Allergy Intermediate Other-UNABLE Verified 01/31/24 10:57 TO RECALL codeine Allergy Intermediate Nervousness, Verified 01/31/24 10:57 HEART RACES, HEAD FEELS STRANGE levofloxacin Allergy Intermediate Nausea and Verified 01/31/24 10:57 Vomiting minocycline Allergy Intermediate Itching, Verified 01/31/24 10:57 HIVES propoxyphene Allergy Intermediate Itching Verified 01/31/24 10:57 rofecoxib Allergy Intermediate Swelling, Verified 01/31/24 10:57 WATER RETENTION carboxymethylcellulose sodium Allergy Mild Other-UNABLE Verified 01/31/24 10:57 TO RECALL duloxetine Allergy Mild Unknown-UNABLE Verified 01/31/24 10:57 TO RECALL indomethacin Allergy Mild Unknown-UNABLE Verified 01/31/24 10:57 TO RECALL linaclotide Allergy Mild Other-UNABLE Verified 01/31/24 10:57 TO RECALL nabumetone Allergy Mild Unknown-UNABLE Verified 01/31/24 10:57 TO RECALL sulfamethoxazole Allergy Mild Unknown-UNABLE Verified 01/31/24 10:57 TO RECALL terbinafine Allergy Mild Unknown-UNABLE Verified 01/31/24 10:57 TO RECALL valdecoxib Allergy Mild Unknown-UNABLE Verified 01/31/24 10:57 TO RECALL chlorpheniramine AdvReac Intermediate HARD TO Verified 01/31/24 10:57 AWAKEN dexchlorpheniramine AdvReac Intermediate Other-ZEUS Verified 01/31/24 10:57 RGY phenylephrine AdvReac Intermediate Other-ZEUS Verified 01/31/24 10:57 RGY phenylpropanolamine AdvReac Intermediate Other- IMMU Verified 01/31/24 10:57 NE scopolamine AdvReac Intermediate Other-ZEUS Verified 01/31/24 10:57 RGY amitriptyline AdvReac Mild Other-ZEUS Verified 01/31/24 10:57 RGY brompheniramine AdvReac Mild other- TOO Verified 01/31/24 10:57 DRYING carbinoxamine AdvReac Mild Other- TOO Verified 01/31/24 10:57 DRYING diclofenac AdvReac Mild HEARTBURN Verified 01/31/24 10:57 oxybutynin AdvReac Mild Rash Verified 01/31/24 10:57 ramelteon AdvReac Mild Nausea Verified 01/31/24 10:57 terfenadine AdvReac Mild Nausea Verified 01/31/24 10:57 trazodone AdvReac Mild Restless Verified 01/31/24 10:57 Sleep pregabalin [From Lyrica] AdvReac Unknown does not Verified 01/31/24 10:57 remember gabapentin AdvReac does not Verified 01/31/24 10:57 remember TRINALIN Allergy Intermediate NAUSEA Uncoded 01/31/24 10:57 LODINE Allergy Unknown UNKNOWN-UNABLE Uncoded 01/31/24 10:57 TO RECALL Home Medications Medication Instructions Recorded Confirmed Type omeprazole 20 mg capsule,delayed 20 mg PO DAILY 05/29/19 01/27/24 History release glucosamine [id number] See Rx Instructions PO DAILY 10/06/19 01/27/24 History 400 mg-200 mg-333 mg tablet multivitamin 1 tablet PO DAILY 10/06/19 01/27/24 History aspirin 81 mg tablet,delayed 81 mg PO DAILY 07/31/21 01/27/24 History release fluticasone propionate 50 2 spray intranasal BID #36.4 mL 09/15/22 01/27/24 Rx mcg/actuation nasal spray,suspension acetaminophen 650 mg 1,300 mg PO Q12H PRN Pain 01/28/23 01/27/24 History tablet,extended release (Tylenol Arthritis Pain) artificial tears with lanolin eye 1 applic EACH EYE 4-12XD PRN Dry 01/28/23 01/27/24 History ointment Eyes biotin 10,000 mcg capsule 10,000 mcg PO DAILY 01/28/23 01/27/24 History fish, maureen, fl
--- NOTE | 2024-01-31 11:52 | PM.IMHP ---
H&P: HPI History of Present Illness Date/Time: 01/31/24 11:52 Chief Complaint: Multiple myeloma Narrative: The patient is a 83-year-old female presenting to the hospital for port placement. The patient diagnosed with multiple myeloma and is going to undergo treatment for that. The patient was sent by Oncology for port placement for access to multiple myeloma treatment. The patient denies any previous central venous catheterization. The patient is right handed. Review of Systems Review of Systems: All systems reviewed & are unremarkable except as noted in HPI and below PMFSH Past Medical History Medical History Chronic pain Fibromyalgia Insomnia PMR (polymyalgia rheumatica) Sleep apnea in adult Surgical History Surgical History H/O adenoidectomy H/O bladder repair surgery H/O: hysterectomy History of esophagogastroduodenoscopy (EGD) Hx of tonsillectomy Family History Family History Mother Family history of thyroid disease, Onset Age: 48 Father Family history of coronary artery disease, Onset Age: 94 Family history of congestive heart failure, Onset Age: 94 Sibling Diabetes mellitus Other Family history of cardiovascular disease Family history of elevated blood lipids No family history of malignant neoplasm Social History Social History Smoking status: Never smoker Second hand tobacco smoke exposure: No Alcohol intake: never Substance use: never Lack of Transportation: No Lack of Food: Sometimes True Current Housing: I Have Housing Concerned About Future Housing: No Difficulty Paying Gas/Electric Bills: No Difficulty Paying for Meds: No Currently Unemployed: No Education: High School Diploma/GED Difficulty w/ Childcare or Family Care: No Living arrangements: with family Additional living arrangements comments: Spiritual care concerns: No Meds Home Medications and Allergies Home Medications Medication Instructions Recorded Confirmed Type omeprazole 20 mg capsule,delayed 20 mg PO DAILY 05/29/19 01/27/24 History release glucosamine [id number] See Rx Instructions PO DAILY 10/06/19 01/27/24 History 400 mg-200 mg-333 mg tablet multivitamin 1 tablet PO DAILY 10/06/19 01/27/24 History aspirin 81 mg tablet,delayed 81 mg PO DAILY 07/31/21 01/27/24 History release fluticasone propionate 50 2 spray intranasal BID #36.4 mL 09/15/22 01/27/24 Rx mcg/actuation nasal spray,suspension acetaminophen 650 mg 1,300 mg PO Q12H PRN Pain 01/28/23 01/27/24 History tablet,extended release (Tylenol Arthritis Pain) artificial tears with lanolin eye 1 applic EACH EYE 4-12XD PRN Dry 01/28/23 01/27/24 History ointment Eyes biotin 10,000 mcg capsule 10,000 mcg PO DAILY 01/28/23 01/27/24 History fish, borage, flaxseed oils-omega 1 cap PO DAILY 01/28/23 01/27/24 History 3,6,9 comb no.1 1,200 mg capsule (Alpine 3-6-9) turmeric root extract 500 mg 500 mg PO BID 01/28/23 01/27/24 History capsule hydrochlorothiazide 25 mg tablet See Rx Instructions .Route 03/15/23 01/27/24 Rx .COMPLEX #90 tabs ezetimibe 10 mg tablet See Rx Instructions .Route 09/24/23 01/27/24 Rx .COMPLEX #90 tabs eszopiclone 3 mg tablet (Lunesta) 3 mg PO QHS PRN insomnia #30 tabs 09/29/23 01/27/24 Rx metronidazole 1 % topical gel with See Rx Instructions .Route 10/18/23 01/27/24 Rx pump .COMPLEX #55 grams gabapentin 600 mg tablet 600 mg PO QID #360 tabs 11/02/23 01/27/24 Rx metoprolol succinate 100 mg See Rx Instructions .Route 12/09/23 01/27/24 Rx tablet,extended release 24 hr .COMPLEX #90 tabs levothyroxine 50 mcg tablet See Rx Instructions .Route 12/16/23 01/27/24 Rx .COMPLEX #90 tabs montelukast 10 mg tablet See Rx I
--- NOTE | 2024-01-31 11:54 | WPDHPUPDATE1 ---
History and Physical Update Update Date/Time: 01/31/24 11:54 History and Physical has been reviewed, including an updated exam of the patient. There are NO changes in the patient's condition. Risks, benefits, and alternatives have been discussed and questions answered. Patient agrees to proceed with procedure.
[2024-01-31] MEDS: ceFAZolin 2 GM/D5W 50 ML 2 GM/50 ML BAG IVPB (11:59)
[2024-01-31] MEDS: BUPIVACAINE/EPINEPHRINE 0.5% 50 ML VIAL 30 ML INFILTRATE (12:23)
[2024-01-31] MEDS: HEPARIN SODIUM, PORCINE 10,000 UNITS/10 ML VIAL 10000 UNITS IRRIGATION (12:26)
[2024-01-31] MEDS: HEPARIN SODIUM 5,000 UNITS/ML VIAL 5000 UNITS IRRIGATION (12:33)
[2024-01-31 12:57] VITALS: BP 155/67; PULSE 87; RESP 15; O2SAT 97
--- NOTE | 2024-01-31 12:58 | W.PM.PROC2 ---
Procedure Note - Detailed Date of Procedure 01/31/24 Pre-op Diagnosis multiple myeloma Post-op Diagnosis Same Procedure Performed Placement of left internal jugular venous access device under both ultrasound and fluoroscopic guidance Surgeon Martha Yepez MD Anesthesia MAC and Local Indications 83-year-old female with multiple myeloma needing access for therapy Findings 1st stick left IJ Description of Procedure Patient was brought into the operating room and placed in the supine position. After adequate induction of mac anesthesia, the patient was prepped and draped in normal sterile fashion. Time-out was then done to verify the patient's identity, as well as the procedure being performed. I began by making a small incision in the left chest. I then used the ultrasound to gain access into the left internal jugular vein. Once access was gained, I placed the guidewire in the vein and confirmed proper positioning. I then locally anesthetized the area in the left chest. I then enlarged the incision including making a subcutaneous pocket inferiorly to allow placement of the port itself. I proceeded to tunnel the catheter from the chest to the left neck insertion site. I then placed a dilating sheath over the guidewire into the left internal jugular vein via sterile Seldinger technique. This was once again done and confirmed via fluoroscopic guidance. I then removed the dilator and the guidewire, now just leaving the sheath in the vein. I then fed the previously flushed catheter into the left internal jugular vein under fluoroscopic guidance. At approximately 27 cm, the catheter was noted to be near the atrial caval junction. I then peeled away the sheath, now just leaving the catheter in the vein. I then was able to easily draw and flush from the catheter. The catheter was cut to fit and attached to the port itself. The port was placed into the previously made subcutaneous pocket and sutured in with 0 Ethibond suture. Final fluoroscopic view showed the termination of the catheter at the atrial caval junction with a nice smooth curvature back to the port itself. I was able to gain access to the port with a Rodney needle and was able to easily draw and flush from the port. I then flushed 4 cc of a final heparin flush into the port. The incision was closed with 3 0 Vicryl suture in the subcutaneous tissue and the skin was closed with 4 O Monocryl subcuticular suture. Dermabond was then placed on wound. The patient tolerated the procedure well and will be sent to the recovery room in stable condition. Implants left internal jugular venous access device Estimated Blood Loss 5 Pathology None sent Complications No immediate complications Condition Stable Disposition PACU [facility] Billing Surgery - Charge Forward: Surgery Billing
[2024-01-31 13:27] VITALS: BP 161/66; PULSE 78
[2024-01-31 13:57] VITALS: BP 148/55; PULSE 74
== END 2024-01-31 14:03 | disposition home or self-care (01) ==
PROVIDERS: Anesthesiology; PCP Emergency Medicine; Visit Provider Surgery
PROC: (CPT 36561; principal; 2024-01-31 12:00)
DX: C90.00 Multiple myeloma not having achieved remission (principal); G89.29 Other chronic pain; M79.7 Fibromyalgia; G47.00 Insomnia, unspecified; M35.3 Polymyalgia rheumatica; G47.30 Sleep apnea, unspecified; Z79.82 Long term (current) use of aspirin; Z79.84 Long term (current) use of oral hypoglycemic drugs; Z98.890 Other specified postprocedural states; Z82.49 Family history of ischemic heart disease and other diseases of the circulatory system
CPT/HCPCS: 36561; 36415; 77001; 82948; 84295; C1788; J0690; J1644; J1885; J2704; J3010; J7030; J7120

== ENCOUNTER 2024-05-26 13:22 | Outpatient (CLI) | payer OTHER, SELFPAY ==
--- NOTE | ~2024-05-26 | XR_ITS ---
EXAMINATION: XR fl port a cath w contrast DATE: 05/26/2024 14:16 INDICATION: Port does not aspirate blood. TECHNIQUE: I performed fluoroscopy of the chest while the port was injected with Omnipaque 240. 259 i mages were obtained. The fluoroscopy exposure time was 0.2 minutes. COMPARISON: Chest single view 01/31/2024 FINDINGS: There is a left internal jugular port with tip in azygos vein. Injection of the port demons trates normal flow. IMPRESSION: 1. Abnormal position of the port tip in the azygos vein. Reviewed, dictated and finalized at location A. 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
== END 2024-05-26 13:23 | disposition home or self-care (01) ==
PROVIDERS: PCP Emergency Medicine; Visit Provider Internal Medicine Hematology & Oncology
DX: Z45.2 Encounter for adjustment and management of vascular access device (principal); C90.00 Multiple myeloma not having achieved remission
CPT/HCPCS: 36598; 99212; G0463

== ENCOUNTER 2024-06-06 09:32 | Outpatient (CLI) | payer OTHER, SELFPAY ==
[2024-06-06 11:39] LABS: Partial Thromboplastin Time 23.4 Seconds (22.3-36.8); Prothrombin Time 13.6 Seconds (11.1-14.7)
== END 2024-06-06 09:33 | disposition home or self-care (01) ==
PROVIDERS: PCP Emergency Medicine; Visit Provider Surgery
DX: Z01.818 Encounter for other preprocedural examination (principal); C90.00 Multiple myeloma not having achieved remission
CPT/HCPCS: 36415; 85610; 85730

== ENCOUNTER 2024-06-19 00:14 | Day surgery (SDC) | payer OTHER, SELFPAY ==
[2024-06-05 09:38] VITALS: BMI 32.8
--- NOTE | 2024-06-05 09:49 | PC.NURSE ---
Report to the Outpatient Waiting Room, entrance under the green pavilion located off [facility], at time __06:00am on date __06/19/24 . Planned Procedure Time: ___07:30am .? Time changes happen often and if your time is changed the preop area will call you the afternoon before. - You and your visitor will be asked to self-screen and do not enter if you have any COVID symptoms. Please call surgeon if you need to reschedule. - A mask is optional within the hospital at this time. Patients may have clear liquids (water, carbonated beverages, clear teas, apple juice) until 3 hours prior to surgery with a maximum of 20 ounces. - No food from midnight until time of surgery and no smoking. This includes no chewing gum, candy or mints. (04:30am) Take only the following medications with a SIP of water on the morning of surgery: Levothyroxine, Gabapentin, and Metoprolol. Pt may also take Tylenol or Tramadol as needed for pain DO NOT STOP ANY OF YOUR OTHER PRESCRIPTION MEDICATIONS PRIOR TO SURGERY EXCEPT THE FOLLOWING Medications to discontinue per physician Pt to verify w Dr Pacheco the Aspirin instructions preop- Office number provided to pt she will call when off the phone w Date to take last dose____per Junior Pt [facility], orders for PT, PTT in system for tomorrow. ( pt aware) Please no make-up, nail [place], hairspray, perfume, deodorant, or body powder the day of surgery.? No jewelry (including any body piercings) or valuables the day of surgery, leave them at home.? Please take a shower or bath the night before, or the morning of, surgery with an antibacterial soap.? Wear comfortable, loose fitting clothing.? . - Jewelry must be removed prior to entering the operating room.? Rings and piercings that are not removed may be cut off. - The hospital will not accept responsibility for valuables.? - Please leave all valuables, including medications, at home the day of surgery. If you are going home after surgery, a licensed laborer driver must drive you home.? - NO public transportation without another adult if you receive anesthesia. - We recommend that an adult stay with you for 24 hours following discharge. - We also recommend that you do not drive, make important decision, drink alcoholic beverages, or take any drugs that were not prescribed by your health care provider for at least 24 hours after your discharge time. Follow any additional instructions given to you from your surgeon. Telephone instructions given to _Patient ____and asked if any additional questions and then verbalized understanding. Patient advised to call surgeon office or pre surgery nurse liaison [phone] if any additional questions.
--- NOTE | ~2024-06-19 | XR_ITS ---
EXAMINATION: XR chest port-a-cath/central DATE: 06/19/2024 08:59 INDICATION: Port placement. TECHNIQUE: A single frontal view of the chest was obtained. COMPARISON: Chest single view 01/31/2024, PET/CT 01/27/2024 FINDINGS: There are airspace opacities in left lower lung zone. No pleural effusion or pneumothorax. The heart size is normal. There is a right subclavian port with tip in proximal right atrium. IMPRESSION: 1. Port tip in proximal right atrium. 2. Airspace opacities in left lower lung zone, consistent with atelectasis versus pneumonia. Reviewed, dictated and finalized at location [] RIALS RECYCLER IMPRESSION: 1. Port tip in proximal right atrium. 2. Airspace opacities in left lower lung zone, consistent with atelectasis vers us pneumonia.
--- NOTE | ~2024-06-19 | XR_ITS ---
EXAMINATION: XR fl guide central line place DATE: 06/19/2024 08:43 INDICATION: Port placement. TECHNIQUE: 2 intraoperative fluoroscopic views of the chest were obtained. I was not present. Fluoros copy exposure time was 46 seconds. COMPARISON: Chest single view 06/19/2024 FINDINGS: There is a right subclavian port with tip in proximal right atrium. IMPRESSION: 1. Port tip in proximal right atrium. Reviewed, dictated and finalized at location [] ER TRIMMER
[2024-06-19 06:30] VITALS: BP 149/64; PULSE 61; RESP 14; TEMP 36.3; O2SAT 99
[2024-06-19] MEDS: LACTATED RINGERS 1,000 ML 30 ML IV CONT (06:30)
[2024-06-19 06:40] LABS: Glucose Point of Care 113 mg/dl (65-105)
[2024-06-19] MEDS: KETOROLAC 15 MG/ML VIAL (*BKC) IV PUSH (07:04)
--- NOTE | 2024-06-19 07:07 | P.PNAN_ITS ---
Anes - Initial Pre Proc Eval Procedure: Operation Date: 06/19/24 07:30 Proposed Procedures p Removal of Kirsty Cath, - Néstor Pacheco MD s Insertion Kirsty Cath - Néstor Pacheco MD Date/Time: 06/19/24 07:07 Surgeon: Néstor Pacheco MD Pre Op Diagnosis: multiple myeloma Patient Data Age: 83 Gender: F Height: 1.73 m Weight: 99.5 kg Last Vital Signs Temp 36.3 C L 06/19/24 06:30 Pulse 61 06/19/24 06:30 Resp 14 06/19/24 06:30 BP 149/64 H 06/19/24 06:30 Pulse Ox 99 06/19/24 06:30 O2 Del Method Room Air 06/19/24 06:30 Allergies Allergy/AdvReac Type Severity Reaction Status Date / Time doxycycline Allergy Severe Itching Verified 06/19/24 06:43 alprazolam Allergy Intermediate Other-UNABLE Verified 06/19/24 06:43 TO RECALL codeine Allergy Intermediate Nervousness, Verified 06/19/24 06:43 HEART RACES, HEAD FEELS STRANGE levofloxacin Allergy Intermediate Nausea and Verified 06/19/24 06:43 Vomiting minocycline Allergy Intermediate Itching, Verified 06/19/24 06:43 HIVES propoxyphene Allergy Intermediate Itching Verified 06/19/24 06:43 rofecoxib Allergy Intermediate Swelling, Verified 06/19/24 06:43 WATER RETENTION carboxymethylcellulose sodium Allergy Mild Other-UNABLE Verified 06/19/24 06:43 TO RECALL duloxetine Allergy Mild Unknown-UNABLE Verified 06/19/24 06:43 TO RECALL indomethacin Allergy Mild Unknown-UNABLE Verified 06/19/24 06:43 TO RECALL linaclotide Allergy Mild Other-UNABLE Verified 06/19/24 06:43 TO RECALL nabumetone Allergy Mild Unknown-UNABLE Verified 06/19/24 06:43 TO RECALL sulfamethoxazole Allergy Mild Unknown-UNABLE Verified 06/19/24 06:43 TO RECALL terbinafine Allergy Mild Unknown-UNABLE Verified 06/19/24 06:43 TO RECALL valdecoxib Allergy Mild Unknown-UNABLE Verified 06/19/24 06:43 TO RECALL etodolac Allergy Unknown UNKNOWN-UNABLE Verified 06/19/24 06:43 TO RECALL chlorpheniramine AdvReac Intermediate HARD TO Verified 06/19/24 06:43 AWAKEN dexchlorpheniramine AdvReac Intermediate Other-ZEUS Verified 06/19/24 06:43 RGY levocarnitine AdvReac Intermediate (Trinalin)= Verified 06/19/24 06:43 Nausea phenylephrine AdvReac Intermediate Other-ZEUS Verified 06/19/24 06:43 RGY phenylpropanolamine AdvReac Intermediate Other- IMMU Verified 06/19/24 06:43 NE scopolamine AdvReac Intermediate Other-ZEUS Verified 06/19/24 06:43 RGY amitriptyline AdvReac Mild Other-ZEUS Verified 06/19/24 06:43 RGY brompheniramine AdvReac Mild other- TOO Verified 06/19/24 06:43 DRYING carbinoxamine AdvReac Mild Other- TOO Verified 06/19/24 06:43 DRYING diclofenac AdvReac Mild HEARTBURN Verified 06/19/24 06:43 oxybutynin AdvReac Mild Rash Verified 06/19/24 06:43 ramelteon AdvReac Mild Nausea Verified 06/19/24 06:43 terfenadine AdvReac Mild Nausea Verified 06/19/24 06:43 trazodone AdvReac Mild Restless Verified 06/19/24 06:43 Sleep pregabalin (From Lyrica) AdvReac Unknown does not Verified 06/19/24 06:43 remember gabapentin AdvReac does not Verified 06/19/24 06:43 remember TRINALIN AdvReac Intermediate NAUSEA Uncoded 06/19/24 06:43 Home Medications ?Medication ?Instructions ?Recorded ?Confirmed ?Type omeprazole 20 mg capsule,delayed 20 mg PO DAILY 05/29/19 06/05/24 History release glucosamine [id number] See Rx Instructions PO DAILY 10/06/19 06/19/24 History 400 mg-200 mg-333 mg tablet multivitamin 1 tablet PO DAILY 10/06/19 06/19/24 History aspirin 81 mg tablet,delayed 81 mg PO DAILY 07/31/21 06/19/24 History release fluticasone propionate 50 2 spray intranasal BID #36.4 mL 09/15/22 06/19/24 Rx mcg/actuation nasal spray,suspension acetaminophen 650 mg 1,300 mg PO Q12H PRN Pain 01/28/23 06/19/24 History tablet,extended release (Tylenol Arthritis Pain) artificial tears with lanolin eye 1 applic EACH EYE 4-12XD PRN Dry 01/28/23 06/19/24 History ointment Eyes biotin 10,000 mcg capsule 10,000 mcg PO DAILY 01/28/23 06/19/24 History fish, borage, flaxseed oils-omega 1 cap PO DAILY 01/28/23 06/19/24 History 3,6,9 comb no.1 1,200 mg capsule ([place] 3-6-9) turmeric root extract 500 mg 500 mg PO BID 01/28/23 06/19/24 History capsule montelukast 10 mg tablet See Rx Instructions .Route 12/24/23 06/05/24 Rx .COMPLEX #90 tabs ramipril 10 mg capsule 10 mg PO DAILY #90 caps 01/03/24 06/19/24 Rx metformin 500 mg tablet,extended 500 mg PO DAILY #90 tabs 01/13/24 06/05/24 Rx release 24 hr triamcinolone acetonide 0.1 % 1 applic topical PRN PRN Skin 01/27/24 06/05/24 History topical cream Irritation acyclovir 400 mg tablet 400 mg PO DAILY 02/11/24 06/19/24 History dexamethasone 4 mg tablet 4 mg PO DIRECTED 02/11/24 06/19/24 History ondansetron 8 mg disintegrating 8 mg PO Q8H PRN Nausea And Vomiting 02/11/24 06/05/24 History tablet sulfamethoxazole 800 800 tablet PO QMWF 02/11/24 06/05/24 History mg-trimethoprim 160 mg tablet metronidazole 1 % topical gel with See Rx Instructions .Route 02/28/24 06/05/24 Rx pump .COMPLEX #55 grams levothyroxine 50 mcg tablet See Rx Instructions .Route 03/13/24 06/19/24 Rx .COMPLEX #90 tabs ezetimibe 10 mg tablet See Rx Instructions .Route 03/16/24 06/05/24 Rx .COMPLEX #90 tabs eszopiclone 3 mg tablet (Lunesta) 3 mg PO QHS PRN insomnia #30 tabs 03/30/24 06/19/24 Rx hydrochlorothiazide 25 mg tablet See Rx Instructions .Route 04/10/24 06/19/24 Rx .COMPLEX #90 tabs atorvastatin 20 mg tablet (Lipitor) 20 mg PO QHS #90 tabs 04/26/24 06/19/24 Rx gabapentin 600 mg tablet 600 mg PO QID #360 tabs 05/01/24 06/19/24 Rx milnacipran 25 mg tablet ([place]) 25 mg PO DAILY 30 days #30 tabs 05/03/24 06/05/24 Rx lidocaine 5 % topical patch 1 patch topical DAILY #30 ea 05/16/24 06/05/24 Rx tramadol 50 mg tablet 50 mg PO Q12H PRN pain 06/05/24 06/05/24 History metoprolol succinate 100 mg See Rx Instructions .Route 06/12/24 06/19/24 Rx tablet,extended release 24 hr .COMPLEX #90 tabs Laboratory Tests 06/19/24 06:34 POC Capillary Glucose 113 H mg/dl (65-105) Patient hx anesthesia problems: none Family hx anesthesia problems: none Results Review: All pre-operative results and documents have been reviewed as part of the pre- operative evaluation. [facility] Past Medical History Medical History (Updated 06/19/24 @ 07:09 by Juvencio Gonzales DO) Myeloma Walker as ambulation aid Pulmonary hypertension HONG (obstructive sleep apnea) Hyperlipidemia Hypertension PMR (polymyalgia rheumatica) Chronic pain Fibromyalgia Insomnia Sleep apnea in adult Surgical History Surgical History H/O: hysterectomy History of esophagogastroduodenoscopy (EGD) H/O bladder repair surgery Hx of tonsillectomy H/O adenoidectomy Family History Family History Mother Family history of thyroid disease, Onset Age: 48 Father Family history of coronary artery disease, Onset Age: 94 Family history of congestive heart failure, Onset Age: 94 Sibling Diabetes mellitus Other Family history of cardiovascular disease Family history of elevated blood lipids No family history of malignant neoplasm Social History Social History Smoking status: Never smoker Second hand tobacco smoke exposure: No Alcohol intake: never Substance use: never Lack of Transportation: No Lack of Food: Sometimes True Current Housing: I Have Housing Concerned About Future Housing: No Difficulty Paying Gas/Electric Bills: No Difficulty Paying for Meds: No Currently Unemployed: No Education: High School Diploma/GED Difficulty w/ Childcare or Family Care: No Living arrangements: with family Additional living arrangements comments: Spiritual care concerns: No Anes - Eval Final PreProcedure Day of Procedure 06/19/24 07:07 Patient weight: obese Heart: regular rate and rhythm Lungs: clear to auscultation Airway: Mallampati scale class II Neurological: alert and oriented Last oral intake: >/= 8 hours ASA classification: III Emergent: no Anesthetic plan: proceed Anesthesia type and monitoring: general GIVS and standard monitoring Results Review: All pre-operative results and documents have been reviewed as part of the pre- operative evaluation. Informed Consent: The patient's anesthetic plan and its attendant risks and benefits were discussed with the patient/family/POA. Questions were solicited and answers provided to the satisfaction of the patient/family/POA.
--- NOTE | 2024-06-19 07:24 | PM.IMHP ---
H&P: HPI History of Present Illness Date/Time: 06/19/24 07:24 Chief Complaint: Malpositioned portacatheter Narrative: Pt with multiple myeloma who needs port for chemo tx. She had portacatheter placed in January 2024 and it worked for a short time and stopped working. CXR shows tip has become malpositioned outside the SVC. Review of Systems Review of Systems: The remainder of the review of systems to include constitutional, HEENT, cardiovascular, respiratory, GI, , integumentary, musculoskeletal, endocrine, immunologic, hematologic, psychiatric, and neurologic are all negative except for which is mentioned above in the HPI. [facility] Past Medical History Medical History Myeloma Walker as ambulation aid Pulmonary hypertension HONG (obstructive sleep apnea) Hyperlipidemia Hypertension PMR (polymyalgia rheumatica) Chronic pain Fibromyalgia Insomnia Sleep apnea in adult Surgical History Surgical History H/O: hysterectomy History of esophagogastroduodenoscopy (EGD) H/O bladder repair surgery Hx of tonsillectomy H/O adenoidectomy Family History Family History Mother Family history of thyroid disease, Onset Age: 48 Father Family history of coronary artery disease, Onset Age: 94 Family history of congestive heart failure, Onset Age: 94 Sibling Diabetes mellitus Other Family history of cardiovascular disease Family history of elevated blood lipids No family history of malignant neoplasm Social History Social History Smoking status: Never smoker Second hand tobacco smoke exposure: No Alcohol intake: never Substance use: never Lack of Transportation: No Lack of Food: Sometimes True Current Housing: I Have Housing Concerned About Future Housing: No Difficulty Paying Gas/Electric Bills: No Difficulty Paying for Meds: No Currently Unemployed: No Education: High School Diploma/GED Difficulty w/ Childcare or Family Care: No Living arrangements: with family Additional living arrangements comments: Spiritual care concerns: No Meds Home Medications and Allergies Home Medications ?Medication ?Instructions ?Recorded ?Confirmed ?Type omeprazole 20 mg capsule,delayed 20 mg PO DAILY 05/29/19 06/05/24 History release glucosamine [id number] See Rx Instructions PO DAILY 10/06/19 06/19/24 History 400 mg-200 mg-333 mg tablet multivitamin 1 tablet PO DAILY 10/06/19 06/19/24 History aspirin 81 mg tablet,delayed 81 mg PO DAILY 07/31/21 06/19/24 History release fluticasone propionate 50 2 spray intranasal BID #36.4 mL 09/15/22 06/19/24 Rx mcg/actuation nasal spray,suspension acetaminophen 650 mg 1,300 mg PO Q12H PRN Pain 01/28/23 06/19/24 History tablet,extended release (Tylenol Arthritis Pain) artificial tears with lanolin eye 1 applic EACH EYE 4-12XD PRN Dry 01/28/23 06/19/24 History ointment Eyes biotin 10,000 mcg capsule 10,000 mcg PO DAILY 01/28/23 06/19/24 History fish, borage, flaxseed oils-omega 1 cap PO DAILY 01/28/23 06/19/24 History 3,6,9 comb no.1 1,200 mg capsule ([place] 3-6-9) turmeric root extract 500 mg 500 mg PO BID 01/28/23 06/19/24 History capsule montelukast 10 mg tablet See Rx Instructions .Route 12/24/23 06/05/24 Rx .COMPLEX #90 tabs ramipril 10 mg capsule 10 mg PO DAILY #90 caps 01/03/24 06/19/24 Rx metformin 500 mg tablet,extended 500 mg PO DAILY #90 tabs 01/13/24 06/05/24 Rx release 24 hr triamcinolone acetonide 0.1 % 1 applic topical PRN PRN Skin 01/27/24 06/05/24 History topical cream Irritation acyclovir 400 mg tablet 400 mg PO DAILY 02/11/24 06/19/24 History dexamethasone 4 mg tablet 4 mg PO DIRECTED 02/11/24 06/19/24 History ondansetron 8 mg disintegrating 8 mg PO Q8H PRN Nausea And Vomiting 02/11/24 06/05/24 History tablet sulfamethoxazole 800 800 tablet PO QMWF 02/11/24 06/05/24 History mg-trimethoprim 160 mg tablet metronidazole 1 % topical gel with See Rx Instructions .Route 02/28/24 06/05/24 Rx pump .COMPLEX #55 grams levothyroxine 50 mcg tablet See Rx Instructions .Route 03/13/24 06/19/24 Rx .COMPLEX #90 tabs ezetimibe 10 mg tablet See Rx Instructions .Route 03/16/24 06/05/24 Rx .COMPLEX #90 tabs eszopiclone 3 mg tablet (Lunesta) 3 mg PO QHS PRN insomnia #30 tabs 03/30/24 06/19/24 Rx hydrochlorothiazide 25 mg tablet See Rx Instructions .Route 04/10/24 06/19/24 Rx .COMPLEX #90 tabs atorvastatin 20 mg tablet (Lipitor) 20 mg PO QHS #90 tabs 04/26/24 06/19/24 Rx gabapentin 600 mg tablet 600 mg PO QID #360 tabs 05/01/24 06/19/24 Rx milnacipran 25 mg tablet (Savella) 25 mg PO DAILY 30 days #30 tabs 05/03/24 06/05/24 Rx lidocaine 5 % topical patch 1 patch topical DAILY #30 ea 05/16/24 06/05/24 Rx tramadol 50 mg tablet 50 mg PO Q12H PRN pain 06/05/24 06/05/24 History metoprolol succinate 100 mg See Rx Instructions .Route 06/12/24 06/19/24 Rx tablet,extended release 24 hr .COMPLEX #90 tabs Allergies Allergy/AdvReac Type Severity Reaction Status Date / Time doxycycline Allergy Severe Itching Verified 06/19/24 06:43 alprazolam Allergy Intermediate Other-UNABLE Verified 06/19/24 06:43 TO RECALL codeine Allergy Intermediate Nervousness, Verified 06/19/24 06:43 HEART RACES, HEAD FEELS STRANGE levofloxacin Allergy Intermediate Nausea and Verified 06/19/24 06:43 Vomiting minocycline Allergy Intermediate Itching, Verified 06/19/24 06:43 HIVES propoxyphene Allergy Intermediate Itching Verified 06/19/24 06:43 rofecoxib Allergy Intermediate Swelling, Verified 06/19/24 06:43 WATER RETENTION carboxymethylcellulose sodium Allergy Mild Other-UNABLE Verified 06/19/24 06:43 TO RECALL duloxetine Allergy Mild Unknown-UNABLE Verified 06/19/24 06:43 TO RECALL indomethacin Allergy Mild Unknown-UNABLE Verified 06/19/24 06:43 TO RECALL linaclotide Allergy Mild Other-UNABLE Verified 06/19/24 06:43 TO RECALL nabumetone Allergy Mild Unknown-UNABLE Verified 06/19/24 06:43 TO RECALL sulfamethoxazole Allergy Mild Unknown-UNABLE Verified 06/19/24 06:43 TO RECALL terbinafine Allergy Mild Unknown-UNABLE Verified 06/19/24 06:43 TO RECALL valdecoxib Allergy Mild Unknown-UNABLE Verified 06/19/24 06:43 TO RECALL etodolac Allergy Unknown UNKNOWN-UNABLE Verified 06/19/24 06:43 TO RECALL chlorpheniramine AdvReac Intermediate HARD TO Verified 06/19/24 06:43 AWAKEN dexchlorpheniramine AdvReac Intermediate Other-ZEUS Verified 06/19/24 06:43 RGY levocarnitine AdvReac Intermediate (Trinalin)= Verified 06/19/24 06:43 Nausea phenylephrine AdvReac Intermediate Other-ZEUS Verified 06/19/24 06:43 RGY phenylpropanolamine AdvReac Intermediate Other- IMMU Verified 06/19/24 06:43 NE scopolamine AdvReac Intermediate Other-ZEUS Verified 06/19/24 06:43 RGY amitriptyline AdvReac Mild Other-ZEUS Verified 06/19/24 06:43 RGY brompheniramine AdvReac Mild other- TOO Verified 06/19/24 06:43 DRYING carbinoxamine AdvReac Mild Other- TOO Verified 06/19/24 06:43 DRYING diclofenac AdvReac Mild HEARTBURN Verified 06/19/24 06:43 oxybutynin AdvReac Mild Rash Verified 06/19/24 06:43 ramelteon AdvReac Mild Nausea Verified 06/19/24 06:43 terfenadine AdvReac Mild Nausea Verified 06/19/24 06:43 trazodone AdvReac Mild Restless Verified 06/19/24 06:43 Sleep pregabalin (From Lyrica) AdvReac Unknown does not Verified 06/19/24 06:43 remember gabapentin AdvReac does not Verified 06/19/24 06:43 remember Vital Signs Vital Signs - 24 hr 06/19/24 06:30 Temperature 36.3 C L Pulse Rate 61 Respiratory Rate 14 Blood Pressure 149/64 H Pulse Oximetry 99 Oxygen Delivery Room Air Exam Const: General: comfortable and no acute distress HENMT: Ears: TM's normal bilaterally Face/Nose/Sinus: Normal nares present Mouth: Yes moist mucous membranes Eyes: General: appearance normal, both eyes and all related structures Sclera: sclerae normal Pupils: Equal, round and reactive pupils present EOM: EOMs intact bilaterally Neck: Neck: supple and no JVD Chest: Other: Left upper ant chest wall port in place. No rashes, no redness. Resp: Effort & Inspection: normal respiratory effort Auscultation: clear to auscultation bilaterally Cardio: Rate: regular rate Rhythm: regular rhythm GI: GI Palp: Yes Soft to palpation, No Firmness to palpation present (GI), No Tenderness to palpation present (GI), No Guarding due to palpation present (GI) and No Hernia present Neuro: General: gait normal Speech: normal speech Motor exam (neuro): 5/5 motor strength present throughout Sensory Exam: normal sensation Extrem: General: normal to inspection Psych: Mental Status: mental status grossly normal Assessment and Plan Assessment and plan (1) Myeloma: Code(s): C90.00 - Multiple myeloma not having achieved remission Status: Acute (2) Port-A-Cath in place: Code(s): Z95.828 - Presence of other vascular implants and grafts Status: Acute Assessment and Plan: Current one is malfunctioning. Will place new portacatheter today and remove malfunctioning catheter. Risks, benefits, indications, and expected outcomes were discussed in detail with the patient and/or family. They understand and I have answered all other questions. They wished to proceed with surgery as outlined above. Specific risk of iatrogenic pneumothorax and bleeding needing chest tube placement or blood transfusion discussed and she agrees to proceed.
--- NOTE | 2024-06-19 07:30 | WPDHPUPDATE1 ---
History and Physical Update Update Date/Time: 06/19/24 07:30 History and Physical has been reviewed, including an updated exam of the patient. There are NO changes in the patient's condition. Risks, benefits, and alternatives have been discussed and questions answered. Patient agrees to proceed with procedure.
[2024-06-19] MEDS: ceFAZolin 2 GM/D5W 50 ML 2 GM/50 ML BAG IVPB (07:33)
[2024-06-19] MEDS: BUPivacaine HCL 0.5% PF 30 ML VIAL 20 ML INFILTRATE (07:58)
[2024-06-19] MEDS: LIDO 1%/EPINEPHRINE 1:100,000 20 ML VIAL INFILTRATE (07:58)
[2024-06-19] MEDS: HEPARIN SODIUM 5,000 UNITS/ML VIAL 1000 UNITS IRRIGATION (08:03)
[2024-06-19] MEDS: HEPARIN SODIUM 5,000 UNITS/ML VIAL 5000 UNITS IV PUSH (08:05)
--- NOTE | 2024-06-19 08:47 | P.OP_ITS ---
Procedure Note - Detailed Date of Procedure 06/19/24 Pre-op Diagnosis Multiple myeloma, Malfunctioning portacatheter. Post-op Diagnosis Same Procedure Performed Placement of right subclavian vein single-lumen port a catheter with intr aoperative fluoroscopy. Removal of left internal jugular vein malfunctioning portacatheter . Surgeon Néstor Pacheco MD Anesthesia General Indications Patient is an 83-year-old female who has multiple myeloma. She had a amber catheter placed in January 2024 for administration of chemotherapy. That worked for couple of infusions but then oncology nurses could no longer confused or aspirated blood well. X-ray showed the tip of the catheter was malpositioned in the azygous vein and not in the superior vena cava. She presents now for placement of a right-sided amber catheter and removal of the malposition and malfunction a left-sided amber catheter. Findings None significant. Description of Procedure After informed consent was obtained patient was brought to the operating room where she was placed supine position and then general LMA anesthesia was administered. The bilateral upper anterior chest wall neck was then prepped and draped usual sterile fashion. A time-out was then performed correctly identifying the patient as well as procedure to be performed. She was given perioperative IV antibiotics. First started by injecting local anesthetic mix ture consisting of 1% lidocaine mixed with 0.5% Marcaine just below the medial 3rd of the right clavicle in the right upper anterior chest wall. A transverse incision was then made this a with a scalpel dissection was carried down through the subcutaneous tissues to the anterior pectoralis fascia. With a combination electrocautery and blunt finger dissection I created a subcu port pocket just be low the incision. The patient was then placed in the head-down Trendelenburg position and then a long 18gauge needle was then used to cannulate the right subclavian vein on the 1st pass without any difficulty. There was prompt return of dark venous appearing blood. A guidewire was advanced through the needle into the right subclavian vein subsequent down into the right atrium of the heart. There was no ectopy. Intraoperative fluoroscopy was then used to identify the proper positioning of the tip of the guidewire. On that image I could also see that the left internal jugular vein catheter tip was located in the azygous vein. I then secured the guidewire to the drape on the right upper chest wall. I covered with a sterile blue towel. I then went to address the now positioned and malfunctioning left internal jugular vein port. I anesthetized the area around the old scar in the left upper anterior chest wall with the same local anesthetic mixture. A transverse incision was then made scalpel the old scar and dissection was carried down through the subcu tissue electrocautery. The hub to the port was encountered it was dissected circumferentially with electrocautery and the proximal portion the catheter was freed up. Then with gentle traction on the catheter so far been from the left internal jugular vein. Pressure was held the area the left internal jugular vein to achieve hemostasis. The catheter tip appeared to be intact. I then utilized electrocautery to excise out the catheter from subcutaneous port pocket. The port and catheter with a discarded. I then proceeded to fulgurate the fibrous capsule port pocket utilized electrocautery. I irrigated with sterile saline solution hemostasis was good. I then closed the incision left upper anterior chest with interrupted 3-0 Vicryl sutures in subcutaneous tissues. The skin edges were then approximated utilizing a running subcuticular 4 Monocryl suture. I then turned my attention back to the placement of the right subclavian port. intraoperative fluoroscopy was then used to confirm that right subclavian vein placed guidewire was not disturbed in its orientation with removal of the left internal jugular vein port. The guidewire appeared to be in good position in the superior vena cava. I then advanced a dilator breakaway sheath over the guidewire. The guidewire and dilator were removed leaving the sheath in place. A 9.6 [place] single-lumen silastic catheter was then advanced through the sheath into the right subclavian vein and subsequent down into the right atrium of the heart. The sheath was then torn away leaving the catheter in place. Then utilizing intraoperative fluoroscopy I visualized the tip of the catheter and pulled on the catheter externals the chest wall into the tip was at the atrial caval junction. I then cut the catheter to the appropriate length at the skin level and attached to the titanium Smart Port. The port was then secured the subcutaneous port pocket on 3 sides utilizing 3-0 Prolene suture. I then accessed the port with the Rodney needle and aspirated blood easily and was flushed with heparinized saline solution. I then irrigated out the port pocket sterile saline solution hemostasis was good. I then close incision utilizing interrupted 3-0 Vicryl sutures in subcutaneous tissues. The skin edges were approximated utilizing a running subcuticular 4 Monocryl suture. I then percutaneously accessed the port with a Rodney needle. It again frida back blood easily and was flushed with 5000units of IV heparin. Both incisions were then cleaned and then skin glue was applied to both incisions. The patient tolerated the procedure well no complications. All sponges, needles, and instrument counts were correct at the end procedure. EBL was _25__cc. The patient was awakened and taken to recovery in stable and satisfactory condition. Postprocedure chest x-ray revealed no evidence of pneumothorax. Tip of the right subclavian vein amber catheter was in the distal superior vena cava according to my interpretation of the image. Implants 9.6 [place] silastic single-lumen catheter placed via the right subclavian vein attached to titanium Smart Port. Estimated Blood Loss 25 Drains No Packing No Pathology None sent Complications No immediate complications Condition Stable Disposition PACU [facility] Billing Surgery - Charge Forward: Surgery Billing
[2024-06-19 08:48] VITALS: BP 130/48; PULSE 72; RESP 14; O2SAT 98
--- NOTE | 2024-06-19 09:15 | SUR.PHASEII ---
Notified Dr. Pacheco of CXR results. States port is in correct place.
[2024-06-19 09:20] VITALS: BP 141/52; PULSE 65; RESP 16
[2024-06-19 09:50] VITALS: BP 125/72; PULSE 69; RESP 16
--- OUTSIDE RECORDS SUMMARY | 2024-06-26 01:33 | XMS_ITS | Encounter Summary ---
Author Organization [facility] [employer] Address [address] [place] [address] Care Team Providers Care Algebra Tutor Name Role Phone Elvis Lopez MD Primary Care Provider [phone] Encounter Details Date Type Department Care Team (Late Contact Info) Description 06/08/2024 Orders Only [facility] Oncology and Hematology [facility] [address] [place] [address] Brant Ratliff MD [address] [place], [place] [address] [place] [id number] Social History Tobacco Use Types Packs/Day Years Used Date Smoking Tobacco: Never Smokeless Tobacco: Never Alcohol Use Standard Drinks/Week Comments Never 0 (1 standard drink = 0.6 oz pur e alcohol) Sex and Gender Information Value Date Recorded Sex Assigned at Not on file Gender Identity Not on file Sexual Orientation Not on file documented as of this encounter Plan of Treatment Upcoming Encounters Date Type Department Care Team (Late st Contact Info) Description 07/14/2024 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 Visit [facility] Oncology and Hematology [place] Alex [address] [place] [address] Brant Ratliff MD [id number] [facility] [address] [place] [phone] documented as of this encounter Procedures Procedure Name Priority Date/Time Associated Diagnosis Comments KAPPA/LAMBDA LIGHT CHAINS Routine 06/06/2024 9:24 AM BEEKEEPER FARMER documented in this encounter Results * KAPPA/LAMBDA, FREE LIGHT CHAINS (06/06/2024 9:24 AM BEEKEEPER FARMER) Blood Brant Ratliff MD CHEMISTRY ORDERABLES documented in this encounter Visit Diagnoses Not on filedocumented in this encounter Care Teams Algebra Tutor Relationship Specialty Start Date End Date Elvis Lopez MD [facility] [facility] [place] [address] PCP - General Family Practice 02/03/24 documented as of this encounter
--- OUTSIDE RECORDS SUMMARY | 2024-06-26 01:33 | XMS_ITS | Encounter Summary ---
Author Organization [facility] [employer] Address [address] [place] [address] Care Team Providers Care Slope Tender Name Role Phone Elvis Lopez MD Primary Care Provider [phone] Encounter Details Date Type Department Care Team (Late st Contact Info) Description 06/05/2024 Orders Only [facility] Oncology and [facility] [address] [place] [address] Brant Ratliff MD [facility] [address] [place] [phone] Multiple myeloma not having achieved remission; Benign hypertension Social History Tobacco Use Types Packs/Day Years [...] st Contact Info) Description 07/14/2024 9:00 AM MARKET MASTER Office Visit [facility] Oncology and [facility] [address] [place] [address] Brant Ratliff MD [address] [place] [phone] documented as of this encounter Visit Diagnoses Diagnosis Multiple myeloma not having achieved remission Multiple myeloma, without mention of having achieved remission Benign hypertension Essential hypertension, benign documented in this encounter Care Teams Slope Tender Relationship Specialty Start Date End Date Elvis Lopez MD [address] [facility] [place] [address] [place] [phone] PCP - General Family Practice 02/03/24 documented as of this encounter
--- OUTSIDE RECORDS SUMMARY | 2024-06-26 01:33 | XMS_ITS | Encounter Summary ---
Author Organization [facility] [employer] Address [address] [place] [address] Care Team Providers Care Cob Sawyer Name Role Phone Elvis Lopez MD Primary Care Provider [phone] Encounter Details Date Type Department Care Team (Late Contact Info) Description 05/25/2024 Abstract [facility] On[facility] [address] [place] [address] Brant Ratliff MD [address] [place], [place] [address] [address] [place] [phone] Social History Tobacco Use Types Packs/Day [...] st Contact Info) Description 07/14/2024 9:00 AM DEPARTMENT DIRECTOR Office Visit [facility] Oncology [facility] [address] [place] [address] Brant Ratliff MD [address] [place] [phone] documented as of this encounter Visit Diagnoses Not on filedocumented in this encounter Care Teams Cob Sawyer Relationship Specialty Start Date End Date Elvis Lopez MD [address] [place] [address] [place] [phone] PCP - General Family Practice 02/03/24 documented as of this encounter
--- OUTSIDE RECORDS SUMMARY | 2024-06-26 01:33 | XMS_ITS | Clinical Summary ---
Author Organization [employer] [facility] Address [address] [place] [address] Care Team Providers Care Plastic Surgery Assistant Name Role Phone Elvis Lopez MD Primary Care Provider [phone] Allergies Active Allergy Reactions Criticality Noted Date Comments Acetaminophen-Pamabrom Unknown 08/29/2018 Alprazolam Other (See Comments) Low 08/29/2018 Sleeps all day Amitriptyline Rash Low 08/29/2018 Sleeps all day Brompheniramine-Phenylephrine Unknown 2018 Carbinoxamine-Pseudoephedrine Unknown 2018 Carboxymethylcellulose Sodium Unknown 2018 Codeine Anxiety Low 11/26/2020 Desloratadine Unknown 08/29/2018 Dextran 70-Hypromellose (Pf) Unknown 019 Diclofenac Unknown 08/29/2018 Doxycycline Monohydrate Unknown 08/29/2018 Erdneitkl-Xdi-Gu-Acetaminophen Unknown 08/29 Duloxetine Unknown 08/29/2018 Levofloxacin Unknown 01/11/2024 Meperidine Unknown 08/29/2018 Nickel Unknown 01/11/2024 Phenylephrine-Guaifenesin Unknown 08/29/2018 Prednisone Unknown 01/11/2024 Propoxyphene N-Acetaminophen Rash Low 021 Ramelteon Unknown 08/29/2018 Sulfamethoxazole-Trimethoprim Unknown 2018 Tramadol-Acetaminophen Swelling Low 11/26/2020 Trazodone Unknown 01/11/2024 Trinalin Unknown 08/29/2018 Ultracef Unknown 08/29/2018 Medications Medication Sig Dispensed Refills Start Date End Date Status hydroCHLOROthiaz angela 25 mg tablet TK 1 T PO QD 07/12/2018 Active montelukast (SINGULAIR) 10 mg tablet TK 1 T PO D 08/18/2018 Active levothyroxine 50 mcg tablet TK 1 T PO QD 05/27/2018 Active ezetimibe (ZETIA) 10 mg tablet TK 1 T PO QD 02/27/2019 Active omega 2-xun-syp-fish oil (Fish Oil) 100-160-1,000 mg Capsule Take by mouth. Active MULTIVITAMIN ORAL Take by mouth. Active TURMERIC ORAL Take by mouth. Active omeprazole (PriLOSEC) 20 mg Capsule, Delayed Release(E.C.) Take 20 mg by mouth. Active metoprolol succinate (TOPROL XL) 100 mg Extended Release 24 hour tablet TK 1 T PO D 06/27/2018 Active acetaminophen (TYLENOL ARTHRITIS) 650 mg Extended Release tablet Take 650 mg by mouth. Active atorvastatin (LIPITOR) 20 mg tablet Take 20 mg by mouth daily at bedtime. 01/22/2023 Active eszopiclone (LUNESTA) 3 mg Tablet Take 3 mg by mouth nightly as needed. 06/23/2021 Active lidocaine (LIDODERM) 5 % Adhesive Patch, Medicated APPLY 1 PATCH TOPICALLY TO THE SKIN DAILY. LEAVE ON MOST PAINFUL AREA FOR UP TO 12 HOURS 10/20/2022 Active metroNIDAZOLE 1 % Gel with Pump Apply to affected area. Active milnacipran (Savella) 25 mg tablet Take 25 mg by mouth daily. 12/23/2022 Active ramipriL (ALTACE) 10 mg capsule Take 10 mg by mouth daily. 12/11/2022 Active fluticasone propion-salmeter oL (ADVAIR DISKUS,WIXELA INHUB) 250-50 mcg/dose disk inhaler Take 1 Puff by inhalation 2 times daily. Active gabapentin (NEURONTIN) 600 mg tablet Take 600 mg by mouth 3 times daily. Active glucosamine HCl/chondroitin velasquez (GLUCOSAMINE-CHO NDROITIN ORAL) Take by mouth. Active VIT B COMP NO.5-ERBRA-T-BIO TIN ORAL Take by mouth. Active dextromethorphan -guaiFENesin (MUCINEX DM) 30-600 mg Tablet Sustained Release 12HR Take 1 Tablet by mouth every 12 hours. Active acyclovir (ZOVIRAX) 400 mg tablet Take 1 Tablet (400 mg) by mouth 2 times daily. 60 Tablet 5 01/14/2024 Active sulfamethoxazole -trimethoprim (BACTRIM DS) 800-160 mg tablet Take 1 tablet by mouth twice daily on Wednesday and Wednesday 24 Tablet 5 01/14/2024 Active ondansetron (ZOFRAN ODT) 8 mg Tablet, Rapid Dissolve Dissolve 1 tablet on top of tongue then swallow with saliva every 8 hours as needed for nausea or vomiting 30 Tablet 1 02/09/2024 Active lidocaine-priloc elliott (EMLA) 2.5-2.5 % Cream Apply a quarter size amount to port site 30 minutes before access. 30 Gram 1 02/09/2024 Active traMADoL (ULTRAM) 50 mg tabletIndication s:Multiple myeloma not having achieved remission Take 1 Tablet (50 mg) by mouth every 6 hours as needed for Pain. 60 Tablet 03/07/2024 Active dexAMETHasone (DECADRON) 4 mg tablet Take 5 tablets by mouth weekly on every Wednesday 40 Tablet 5 03/14/2024 Active lenalidomide (Revlimid) 15 mg capsuleIndicatio ns:Multiple myeloma not having achieved remission TAKE 1 CAPSULE BY MOUTH DAILY FOR 14 DAYS THEN 7 DAYS OFF 14 Capsule 06/22/2024 Active lenalidomide (Revlimid) 15 mg capsuleIndicatio ns:Multiple myeloma not having achieved remission TAKE ONE CAPSULE BY MOUTH DAILY FOR 14 DAYS THEN 7 DAYS OFF 14 Capsule 05/17/2024 4 Discontinued lenalidomide (Revlimid) 15 mg capsuleIndicatio ns:Multiple myeloma not having achieved remission TAKE 1 CAPSULE BY MOUTH DAILY FOR 14 DAYS THEN 7 DAYS OFF 14 Capsule 06/01/2024 5 Discontinued Active Problems Problem Noted Date Diagnosed Date Fibromyalgia 11/26/2020 Spondylolisthesis at L4-L5 level 11/26/2020 Encounters Date Type Department Care Team Description 06/23/2024 Orders Only [facility] Oncology and [facility]ology - [place] [address] [place] [address] Brant Ratliff MD 06/22/2024 Orders Only [facility] Oncology and [facility]ology - [place] [address] [place] [address] Brant Ratliff MD 06/19/2024 Refill [facility] Oncology and [facility]ology - [place] [address] [place] [address] Luda Linn MD Multiple myeloma not having achieved remission 06/19/2024 Orders Only [facility] On[facility] and [facility]ology - [place] [address] [place] [address] Brant Ratliff MD Multiple myeloma not having achieved remission; Benign hypertension 06/08/2024 Orders Only [facility] Oncology and [facility]ology - [place] [address] [place] [address] Brant Ratliff MD 06/06/2024 10:15 AM MAGAZINE GRINDER LOADER Office Visit [facility] Oncology and Hematology [facility] [address] [place] [address] Brant Ratliff MD Multiple myeloma not having achieved remission (Primary Dx) 06/06/2024 Orders Only [facility] Oncology and [facility]ology - [place] [address] [place] [address] Brant Ratliff MD 06/05/2024 Orders Only [facility] Oncology and [facility]ology - [place] [address] [place] [address] Brant Ratliff MD Multiple myeloma not having achieved remission; Benign hypertension 06/01/2024 Refill [facility] Oncology and [facility] - [place] [address] [place] [address] Luda Linn MD Multiple myeloma not having achieved remission 05/29/2024 Orders Only [facility] Oncology and [facility]ology - [place] [address] [place] [phone] Brant Ratliff MD Multiple myeloma not having achieved remission (Primary Dx) 05/25/2024 Abstract [facility] and [facility] - [place] [address] [place] [address] Brant Ratliff MD 05/24/2024 Orders Only [facility] On[facility] and [facility] - [place] [address] [place] [address] Brant Ratliff MD 05/23/2024 Orders Only [facility] and [facility] - [place] [address] [place] [address] Brant Ratliff MD 05/22/2024 Orders Only [facility] and [facility] - [place] [address] [place] [address] Brant Ratliff MD Multiple myeloma not having achieved remission; Benign hypertension 05/17/2024 Telephone [facility] Oncology and Hematology [facility] [address] [place] [address] Brant Ratliff MD Dye Study 05/16/2024 8:30 AM MAGAZINE GRINDER LOADER Office Visit [facility] Oncology and Hematology [facility] [address] [place] [address] Brant Ratliff MD Multiple myeloma not having achieved remission (Primary Dx) 05/16/2024 Orders Only [facility] Oncology and Hematology [facility] [address] [place] [phone] Brant Ratliff MD Multiple myeloma not having achieved remission (Primary Dx) 05/11/2024 Orders Only [facility] On[facility] and [facility] - [place] [address] [place] [address] Brant Ratliff MD 05/11/2024 Refill [facility] On[facility] and [facility]ology - [place] [address] Luda Linn MD Multiple myeloma not having achieved remission 05/08/2024 Orders Only [facility] and [facility] - [place] [address] Brant Ratliff MD Multiple myeloma not having achieved remission; Benign hypertension 05/04/2024 Telephone [facility] and [facility] - [place] [address] [place] [address] Brant Ratliff MD Orders 05/03/2024 Orders Only [facility] On[facility] and [facility]ology - [place] [address] Brant Ratliff MD 04/26/2024 Orders Only [facility] Oncology and [facility]ology - [place] [address] [place] [address] Brant Ratliff MD 04/25/2024 External Device Data STL ABSTRACTION Provider, Abstract 04/25/2024 Orders Only [facility] On[facility] and [facility]ology - [place] [address] Brant Ratliff MD 04/24/2024 Refill [facility] On[facility] and [facility]ology - [place] [address] [place] [phone] Luda Linn MD Multiple myeloma not having achieved remission 04/24/2024 Orders Only [facility] On[facility] and [facility]ology - [place] [address] Brant Ratliff MD Multiple myeloma not having achieved remission; Benign hypertension 04/21/2024 Orders Only [facility] On[facility] and [facility]ology - [place] [address] [place] [address] Brant Ratliff MD 04/18/2024 Orders Only [facility] Oncology and Hematology - [place] [address] [place] [phone] Brant Ratliff MD 04/14/2024 Orders Only [facility] Oncology and Hematology - [place] [address] [place] [phone] Brant Ratliff MD 04/13/2024 Orders Only [facility] Oncology and Hematology - [place] [address] [place] [phone] Brant Ratliff MD 04/12/2024 Orders Only [facility] On[facility] and [facility]ology - [place] [address] Brant Ratliff MD 04/11/2024 8:30 AM CDT Office Visit [facility] Oncology and Hematology - [place] [address] Brant Ratliff MD Multiple myeloma not having achieved remission (Primary Dx) 04/10/2024 Orders Only [facility] Oncology and [facility]ology - [place] [address] [place] [address] Brant Ratliff MD Multiple myeloma not having achieved remission; Benign hypertension 04/06/2024 Orders Only [facility] Oncology and [facility]ology - [place] [address] [place] [phone] Brant Ratliff MD 03/28/2024 Orders Only [facility] Oncology and H[facility]ology - [place] [address] [place] [phone] Barnt Ratliff MD 03/28/2024 Abstract [facility] Oncology and [facility]ology - [place] [address] [place] [phone] Brant Ratliff MD 03/27/2024 Abstract [facility] Oncology and [facility]ology - [place] [address] [place] [phone] Brant Ratliff MD 03/27/2024 Orders Only [facility] Oncology and [facility]ology - [place] [address] [place] [phone] Brant Ratliff MD Multiple myeloma not having achieved remission; Benign hypertension from Last 3 Months Family History Medical History Relation Name Comments Heart Disease Brother 1 No Known Problems Brother 2 No Known Problems Brother 3 Diabetes Brother 4 Lung Cancer Brother 4 No Known Problems Child 1 No Known Problems Child 2 Heart Disease Father No Known Problems Mother Heart Disease Sister Relation Name Status Comments Brother 1 Brother 2 Brother 3 Alive Brother 4 Child 1 Alive Child 2 Alive Father Mother Sister Social History Tobacco Use Types Packs/Day Years Used Date Smoking Tobacco: Never Smokeless Tobacco: Never Tobacco Cessation:Counseling Given: Not Answered Alcohol Use Standard Drinks/Week Comments Never 0 (1 standard drink = 0.6 oz pur e alcohol) Sex and Gender Information Value Date Recorded Sex Assigned at Not on file Gender Identity Not on file Sexual Orientation Not on file Last Filed Vital Signs Vital Sign Reading Time Taken Comments Blood Pressure 136/83 06/06/2024 10:14 AM MAGAZINE GRINDER LOADER Pulse 72 06/06/2024 10:14 AM MAGAZINE GRINDER LOADER Temperature 35.9 ??C (96.7 ??F) 06/06/2024 10:[address] Respiratory Rate 16 06/06/2024 10:14 AM MAGAZINE GRINDER LOADER Oxygen Saturation 95% 06/06/2024 10:14 AM MAGAZINE GRINDER LOADER Inhaled Oxygen Concentration - - Weight 98.9 kg (218 lb) 06/06/2024 10:14 AM MAGAZINE GRINDER LOADER Height 172.7 cm (5' 8 ) 01/11/2024 10:44 AM CDT Body Mass Index 33.15 01/11/2024 10:44 AM CDT Plan of Treatment Upcoming Encounters Date Type Department Care Team (Late st Contact Info) Description 07/14/2024 9:00 AM MAGAZINE GRINDER LOADER Office Visit [facility] Oncology and Hematology - [place] [address] [facility] [address] [place] [address] Brant Ratliff MD [address] [facility] [address] [place] [address] Health Maintenance Due Date Last Done Comments PNEUMOCOCCAL VACCINE 65+ YEARS (1 of 2 - PCV) 12/29/18 47 03/31/2018 DTAP/TDAP/TD VACCINES (1 - Tdap) 12/30/1959 ZOSTER VACCINE (1 of 2) 12/30/1959 OSTEOPOROSIS SCREENING 2005 RSV VACCINE (60+ or ) (1 - 1-dose 75+ series) 12/30/2015 INFLUENZA VACCINE (#1) 2024 03/25/2018 Procedures Procedure Name Priority Date/Time Associated Diagnosis Comments COMPREHENSIVE METABOLIC PANEL Routine 06/16/2024 1:11 PM MAGAZINE GRINDER LOADER BASIC METABOLIC PANEL Routine 06/06/2024 2:18 PM MAGAZINE GRINDER LOADER CBC WITH DIFFERENTIAL Routine 06/06/2024 2:17 PM MAGAZINE GRINDER LOADER PROTEIN ELECTROPHORESIS, CSF Routine 06/06/2024 12:08 PM MAGAZINE GRINDER LOADER KAPPA/LAMBDA LIGHT CHAINS Routine 2023 9:24 AM MAGAZINE GRINDER LOADER XR PORT CONTRAST INJECT W FLUORO Routine 05/26/2024 1:55 PM MAGAZINE GRINDER LOADER COMPREHENSIVE METABOLIC PANEL Routine 05/23/2024 12:54 PM MAGAZINE GRINDER LOADER CBC WITH DIFFERENTIAL Routine 05/23/2024 10:45 AM MAGAZINE GRINDER LOADER BASIC METABOLIC PANEL Routine 05/23/2024 9:48 AM MAGAZINE GRINDER LOADER COMPREHENSIVE METABOLIC PANEL Routine 05/16/2024 3:32 PM MAGAZINE GRINDER LOADER CBC WITH DIFFERENTIAL Routine 05/16/2024 12:49 PM MAGAZINE GRINDER LOADER BASIC METABOLIC PANEL Routine 05/16/2024 12:42 PM MAGAZINE GRINDER LOADER KAPPA/LAMBDA LIGHT CHAINS Routine 2023 9:38 AM MAGAZINE GRINDER LOADER BASIC METABOLIC PANEL Routine 05/09/2024 3:45 PM MAGAZINE GRINDER LOADER COMPREHENSIVE METABOLIC PANEL Routine 05/09/2024 3:28 PM MAGAZINE GRINDER LOADER COMPREHENSIVE METABOLIC PANEL Routine 05/03/2024 3:38 PM MAGAZINE GRINDER LOADER CBC WITH DIFFERENTIAL Routine 05/03/2024 1:24 PM MAGAZINE GRINDER LOADER BASIC METABOLIC PANEL Routine 04/25/2024 11:57 AM MAGAZINE GRINDER LOADER CBC WITH DIFFERENTIAL Routine 04/25/2024 11:56 AM MAGAZINE GRINDER LOADER COMPREHENSIVE METABOLIC PANEL Routine 04/25/2024 8:31 AM MAGAZINE GRINDER LOADER PROTEIN ELECTROPHORESIS, CSF Routine 04/20/2024 10:49 AM CDT CBC WITH DIFFERENTIAL Routine 04/18/2024 3:00 PM CDT BASIC METABOLIC PANEL Routine 04/18/2024 2:39 PM CDT KAPPA/LAMBDA LIGHT CHAINS Routine 2023 2:43 PM CDT BASIC METABOLIC PANEL Routine 04/11/2024 12:02 PM CDT IGG Routine 04/11/2024 9:58 AM CDT BASIC METABOLIC PANEL Routine 04/04/2024 1:28 PM CDT COMPREHENSIVE METABOLIC PANEL Routine 04/04/2024 1:11 PM CDT BASIC METABOLIC PANEL Routine 03/28/2024 3:58 PM CDT COMPREHENSIVE METABOLIC PANEL Routine 03/28/2024 3:53 PM CDT from Last 3 Months Results * COMPREHENSIVE METABOLIC PANEL (06/16/2024 1:11 PM MAGAZINE GRINDER LOADER) Only the most recent of8 resultswithin the time period is included. Blood Brant Ratliff MD CHEMISTRY ORDERABLES * BASIC METABOLIC PANEL (06/06/2024 2:18 PM MAGAZINE GRINDER LOADER) Only the most recent of9 resultswithin the time period is included. Blood Brant Ratliff MD CHEMISTRY ORDERABLES * CBC WITH DIFFERENTIAL (06/06/2024 2:17 PM MAGAZINE GRINDER LOADER) Only the most recent of6 resultswithin the time period is included. Blood Brant Ratliff MD HEMATOLOGY ORDERABLE S * PROTEIN ELECTROPHORESIS, CSF (06/06/2024 12:08 PM MAGAZINE GRINDER LOADER) Only the most recent of2 resultswithin the time period is included. Cerebrospinal fluid CEREBROSPINAL FLUID / Unknown Brant Ratliff MD BODY FLUIDS AND STOO LS * KAPPA/LAMBDA, FREE LIGHT CHAINS (06/06/2024 9:24 AM MAGAZINE GRINDER LOADER) Only the most recent of3 resultswithin the time period is included. Blood Brant Ratliff MD CHEMISTRY ORDERABLES * XR PORT CONTRAST INJECT W FLUORO (05/26/2024 1:55 PM MAGAZINE GRINDER LOADER) Anatomical Region Laterality Modality Other Brant Ratliff MD DIAGNOSTIC IMAGING O RDERABLES * IGG (04/11/2024 9:58 AM CDT) Blood Brant Ratliff MD CHEMISTRY ORDERABLES from Last 3 Months Care Teams Plastic Surgery Assistant Relationship Specialty Start Date End Date Elvis Lopez MD [address] [facility] [place] [phone] PCP - General Family Practice 02/03/24
--- OUTSIDE RECORDS SUMMARY | 2024-06-26 01:33 | XMS_ITS | Encounter Summary ---
Author Organization [facility] [employer] Address [address] [place] [address] Care Team Providers Care Petroleum Products Sales Representative Name Role Phone Elvis Lopez MD Primary Care Provider [phone] Encounter Details Date Type Department Care Team (Late Contact Info) Description 06/06/2024 Orders Only [facility] Oncology and Hematology [facility] [address] [place] [address] Brant Ratliff MD [address] [place], [place] [address] [address] [place] [address] Social History Tobacco Use Types Packs/Day [...] st Contact Info) Description 07/14/2024 9:00 AM DIGITAL STRATEGIST Office Visit [facility] Oncology and Hematology [place] [address] [place] [address] Brant Ratliff MD [address] [facility] [employer] [address] [place] [address] documented as of this encounter Procedures Procedure Name Priority Date/Time Associated Diagnosis Comments BASIC METABOLIC PANEL Routine 06/06/2024 2:18 PM DIGITAL STRATEGIST CBC WITH DIFFERENTIAL Routine 06/06/2024 2:17 PM DIGITAL STRATEGIST documented in this encounter Results * BASIC METABOLIC PANEL (06/06/2024 2:18 PM DIGITAL STRATEGIST) Blood Brant Ratliff MD CHEMISTRY ORDERABLES * CBC WITH DIFFERENTIAL (06/06/2024 2:17 PM DIGITAL STRATEGIST) Blood Brant Ratliff MD HEMATOLOGY ORDERABLE S documented in this encounter Visit Diagnoses Not on filedocumented in this encounter Care Teams [employer]roleum Products Sales Representative Relationship Specialty Start Date End Date Elvis Lopez MD [facility] [facility] [place] [address] PCP - General Family Practice 02/03/24 documented as of this encounter
--- OUTSIDE RECORDS SUMMARY | 2024-06-26 01:33 | XMS_ITS | Encounter Summary ---
Author Organization [facility] [employer] [facility] Address [address] [place] [address] Care Team Providers Care Mold Filler Name Role Phone Elvis Lopez MD Primary Care Provider [phone] Reason for Visit * Reason Comments Chemotherapy Follow Up Encounter Details Date Type Department Care Team (Late st Contact Info) Description 06/06/2024 10:15 AM MEDICAL DOCTOR MD Office Visit [facility] Oncology and Hematology - [place] [address] [place] [address] Brant Ratliff MD [address] [facility] [facility] [address] [place] [address] Multiple myeloma not having achieved remission (Primary Dx) Social History Tobacco Use Types Packs/Day Years [...] on file documented as of this encounter Last Filed Vital Signs Vital Sign Reading Time Taken Comments Blood Pressure 136/83 06/06/2024 10:14 AM MEDICAL DOCTOR MD Pulse 72 06/06/2024 10:14 AM MEDICAL DOCTOR MD Temperature 35.9 ??C (96.7 ??F) 06/06/2024 10:[address] Respiratory Rate 16 06/06/2024 10:14 AM MEDICAL DOCTOR MD Oxygen Saturation 95% 06/06/2024 10:14 AM MEDICAL DOCTOR MD Inhaled Oxygen Concentration - - Weight 98.9 kg (218 lb) 06/06/2024 10:14 AM MEDICAL DOCTOR MD Height - - Body Mass Index 33.15 01/11/2024 10:44 AM CDT documented in this encounter Progress Notes * Brant Ratliff MD - 06/06/2024 12:28 PM CST HEMATOLOGY / ONCOLOGY PROGRESS NOTE Patient Identification: Name: Sloane Elise Age: 83 y.o. Sex: female : 1940 DIAGNOSIS Golovin light chain multiple myeloma CURRENT TREATMENT VRD Darzalex started January 24, 2024. Velcade cycle 1 started February 22, 2024 IV IgG on every 3 months basis Monthly Xgeva TREATMENT HISTORY SUBJECTIVE Patient came to the office for follow-up visit. She has been taking Revlimid and tolerating it well. Denies any neuropathy. Weight and appetite stable. Denies any bone pain. Overall she is feeling much better and stronger. No other new complaints. Review of system Constitutional: Patient did not mention fevers, sweats, denies any tiredness and fatigue, weight and appetite stable HEENT: Patient did not mention sinus congestion, hearing or vision problems Respiratory: Patient did not mention cough, dyspnea, wheeze Cardiovascular: Patient did not mention chest pain, exertional chest pressure/discomfort, nausea, syncope, shortness of breath GI: Patient did not mention constipation, diarrhea, dsyphagia, reflux symptoms, vomiting, melena : Patient did not mention dysuria, frequency, incontinence, urgency Integumentary system: no lymphadenopathy, sweats, flushing Musculoskeletal: Patient not mention: myalgia, arthralgia Neurological: Patient did not mention blurry or disturbed vision, numbness/weakness, dizziness Skin: No lumps, bumps or rashes. 12 point review of system was reviewed Objective: Vital signs in last 24 hours: As per nursing note Exam: HEENT: Atraumatic, external ears normal, nose normal, oropharynx moist, no pharyngeal exudates. no sinus tenderness Neck- normal range of motion, no tenderness, supple Respiratory: No respiratory distress, normal breath sounds, no rales, no wheezing Cardiovascular: Normal rate, normal rhythm, no murmurs, no gallops, no rubs GI: Soft, nondistended, normal bowel sounds, nontender, no splenomegaly, no hepatomegaly, no mass, no rebound, no guarding : No costovertebral angle tenderness Musculoskeletal: No edema, no tenderness, no deformities. Back- no tenderness Integument: Well hydrated, no rash, Digits and nails inspection normal Lymphatic: No lymphadenopathy noted Neurologic: Alert & oriented x 3, CN 2-12 normal, normal motor function, normal sensory function, no focal deficits noted Exam as above PATH LABS Labs from March 07 showed WBC 1.8 hemoglobin 10.2 platelet 183,000 ANC 1000 creatinine 1.3 GFR 39 Labs from March 14 showed hemoglobin 10.8 creatinine 1.3 GFR 39 Labs from April 11 showed WBC 8.2 hemoglobin 10.5 platelet 238,000 creatinine 1.3 Labs from May 16 showed hemoglobin 10.3 creatinine 1.2 lab from April 11 showed kappa lambdaratio 11.5 with free kappa light chain 28 and lambda light chain 2.5 serum protein electrophoresis showed faint M spike. Labs from June 06 showed creatinine 1.3 hemoglobin 11.2 WBC 8.5 platelet 185,000. Labs from May 16 showed kappa light chain 18.7 with a ratio of 6.6 M spike of 0.1 g. 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 Her last PET scan was done in December 2022 showed no multiple myeloma. Involved free light chain concentration is more than 10 mg/dL at 16.7 mg/dL Presence of trisomies as well as deletion of TP 53 PET scan done on January 27, 2024 showed no specific evidence of myeloma. Patient started treatment with VRD and Darzalex on January 24, 2024. Labs noted and discussed with the patient. Myeloma testing showed improvement in the kappa light chain and M spike. She has been tolerating treatment well and will proceed with cycle 5-day 22 of treatment today. I plan to see her back in 4 weeks and repeat myeloma testing will be done in 3 weeks. After the cycle 6 of chemotherapy plan is to perform bone marrow biopsy before starting maintenance treatment with Velcade and Darzalex. Normocytic anemia. Hemoglobin has improved. Antimicrobial prophylaxis. She is asymptomatic on Bactrim and acyclovir. Hypogammaglobulinemia. She will continue IV IgG on every 3-month basis. She is asymptomatic. Bone health. Continue monthly Xgeva. Pain is under control with tramadol. Thrombosis prophylaxis. Patient is on aspirin. 06/06/2024 Brant Ratliff MD CAL DOCTOR MD documented in this encounter Plan of Treatment Upcoming Encounters Date Type Department Care Team (Late st Contact Info) Description 07/14/2024 9:00 AM MEDICAL DOCTOR MD Office Visit [facility] Oncology and Hematology [facility] [address] [facility] [address] [place] [address] Brant Ratliff MD [address] [facility] [address] [place] [address] Scheduled Orders Name Type Priority Associated Diagnoses Orde r Schedule CBC WITH DIFFERENTIAL Lab Stat Multiple myeloma not having achieved remission Expected: 06/27/2024, Expires: 06/06/2025 COMPREHENSIVE METABOLIC PANEL Lab Stat Multiple myeloma not having achieved remission Expected: 06/27/2024, Expires: 06/06/2025 IMMUNOGLOBULINS IGG IGA IGM Lab Routine Multiple myeloma not having achieved remission Expected: 06/27/2024, Expires: 06/06/2025 KAPPA/LAMBDA, FREE LIGHT CHAINS Lab Routine Multiple myeloma not having achieved remission Expected: 06/27/2024, Expires: 06/06/2025 PROTEIN ELECTROPHORESIS W/REFLEX,SERUM Lab Routine Multiple myeloma not having achieved remission Expected: 06/27/2024, Expires: 06/06/2025 documented as of this encounter Visit Diagnoses Diagnosis Multiple myeloma not having achieved remission- Primary Multiple myeloma, without mention of having achieved remission documented in this encounter Care Teams Mold Filler Relationship Specialty Start Date End Date Elvis Lopez MD [address] [facility] [place] [address] PCP - General Family Practice 02/03/24 documented as of this encounter
--- OUTSIDE RECORDS SUMMARY | 2024-06-26 01:33 | XMS_ITS | Encounter Summary ---
Author Organization [facility] [employer] Address [address] [place] [address] Care Team Providers Care Gas Operation Manager Name Role Phone Elvis Lopez MD Primary Care Provider [phone] Reason for Visit * Reason Comments Med Refill Encounter Details Date Type Department Care Team ([facility] Contact Info) Description 06/01/2024 Refill [facility] Oncology and Hematology [facility] [address] [place] [address] Luda Linn MD [address] [place] [address] Multiple myeloma not having achieved remission Social History Tobacco Use Types Packs/Day Years [...] Encounters Date Type Department Care Team (Late Contact Info) Description 07/14/2024 9:00 AM TUBE MAKING MACHINE OPERATOR Office Visit [facility] Oncology and Hematology [facility] [address] [place] [address] Brant Ratliff MD [address] [facility] [employer] [address] [place] [address] documented as of this encounter Visit Diagnoses Diagnosis Multiple myeloma not having achieved remission Multiple myeloma, without mention of having achieved remission documented in this encounter Care Teams Gas Operation Manager Relationship Specialty Start Date End Date Elvis Lopez MD [address] [facility] [place] [address] [place] [address] PCP - General Family Practice 02/03/24 documented as of this encounter
--- OUTSIDE RECORDS SUMMARY | 2024-06-26 01:33 | XMS_ITS | Encounter Summary ---
Author Organization [facility] [employer] Address [address] [place] [address] Care Team Providers Care Weight Caller Name Role Phone Elvis Lopez MD Primary Care Provider [phone] Encounter Details Date Type Department Care Team (Late st Contact Info) Description 06/19/2024 Orders Only [facility] Oncology and [facility] [address] [place] [address] Brant Ratliff MD [facility] [employer] [address] [place] [address] Multiple myeloma not having achieved remission; [...] st Contact Info) Description 07/14/2024 9:00 AM COIL WINDER STRAP Office Visit [facility] Oncology and [facility] [address] [place] [address] Brant Ratliff MD [address] [place] [address] documented as of this encounter Visit Diagnoses Diagnosis Multiple myeloma not having achieved remission Multiple myeloma, without mention of having achieved remission Benign hypertension Essential hypertension, benign documented in this encounter Care Teams Weight Caller Relationship Specialty Start Date End Date Elvis Lopez MD [address] [facility] [place] [address] [place] [address] PCP - General Family Practice 02/03/24 documented as of this encounter
--- OUTSIDE RECORDS SUMMARY | 2024-06-26 01:33 | XMS_ITS | Encounter Summary ---
Author Organization [facility] [employer] [facility] Address [address] [place] [address] Care Team Providers Care Corporate Strategy Analyst Name Role Phone Elvis Lopez MD Primary Care Provider [phone] Reason for Referral * Eval and Treat (Routine) - Open Specialty Diagnoses / Procedures Referred By Sharlene uriarte Referred To Contact Surgery Diagnoses Multiple myeloma not having achieved remission Procedures DE OFFICE/OUTPATIENT ESTABLISHED MOD MDM 30 MIN DE OFFICE/OUTPATIENT NEW MODERATE MDM 45 MINUTES Brant Ratliff MD [address] [place] [address] [place] [address] Referral ID Status Reason Start Date Expiration Date V isits Requested Visits Authorized [id number] Open STL CTS 05/29/2024 05/29/2025 1 1 ASSEMBLER Encounter Details Date Type Department Care Team (Late st Contact Info) Description 05/29/2024 Orders Only [facility] Oncology and Hematology [facility] [address] [facility] [address] [place] [address] Brant Ratliff MD [address] [place] [address] Multiple myeloma not having achieved [...] st Contact Info) Description 07/14/2024 9:00 AM UNIT ASSEMBLER Office Visit [facility] Oncology and Hematology [facility] [address] [facility] [address] [place] [address] Brant Ratliff MD [address] [facility] [address] [place] [address] Scheduled Referrals Name Type Priority Associated Diagnoses Orde r Schedule AMB REFERRAL TO GENERAL SURGERY Outpatient Referral Routine Multiple myeloma not having achieved remission Ordered: 05/29/2024 documented as of this encounter Procedures Procedure Name Priority Date/Time Associated Diagnosis Comments XR PORT CONTRAST INJECT W FLUORO Routine 05/26/2024 1:55 PM UNIT ASSEMBLER documented in this encounter Results * XR PORT CONTRAST INJECT W FLUORO (05/26/2024 1:55 PM UNIT ASSEMBLER) Anatomical Region Laterality Modality Other Brant Ratliff MD DIAGNOSTIC IMAGING O RDERABLES documented in this encounter Visit Diagnoses Diagnosis Multiple myeloma not having achieved remission- Primary Multiple myeloma, without mention of having achieved remission documented in this encounter Care Teams Corporate Strategy Analyst Relationship Specialty Start Date End Date Elvis Lopez MD [address] [facility] [place] [address] PCP - General Family Practice 02/03/24 documented as of this encounter
--- OUTSIDE RECORDS SUMMARY | 2024-06-26 01:34 | XMS_ITS | Encounter Summary ---
Author Organization [facility] [employer] Address [address] [place] [address] Care Team Providers Care Compound Worker Name Role Phone Elvis Lopez MD Primary Care Provider [phone] Encounter Details Date Type Department Care Team (Late Contact Info) Description 04/14/2024 Orders Only [facility] Oncology and Hematology [facility] [address] [place] [address] Brant Ratliff MD [facility] [employer] [address] [place] [address] Social History Tobacco Use Types Packs/Day [...] st Contact Info) Description 07/14/2024 9:00 AM LEAD VULCANIZING OPERATOR Office Visit [facility] Oncology and Hematology [place] [address] [place] [address] Brant Ratliff MD [address] [employer] [address] [place] [address] documented as of this encounter Procedures Procedure Name Priority Date/Time Associated Diagnosis Comments BASIC METABOLIC PANEL Routine 04/11/2024 12:02 PM CDT documented in this encounter Results * BASIC METABOLIC PANEL (04/11/2024 12:02 PM CDT) Blood Brant Ratliff MD CHEMISTRY ORDERABLES documented in this encounter Visit Diagnoses Not on filedocumented in this encounter Care Teams Compound Worker Relationship Specialty Start Date End Date Elvis Lopez MD [address] [facility] [place] [address] PCP - General Family Practice 02/03/24 documented as of this encounter
--- OUTSIDE RECORDS SUMMARY | 2024-06-26 01:34 | XMS_ITS | Encounter Summary ---
Author Organization [facility] [employer] Address [address] [place] [address] Care Team Providers Care Screen Tacker Name Role Phone Elvis Lopez MD Primary Care Provider [phone] Encounter Details Date Type Department Care Team (Late Contact Info) Description 01/31/2024 Orders Only [facility] Oncology and Hematology [facility] [address] [place] [address] Brant Ratliff MD [address] [place] [address] [employer] [address] [place] [address] Social History Tobacco Use Types Packs/Day [...] st Contact Info) Description 07/14/2024 9:00 AM DOPER Office Visit [facility] Oncology and Hematology [place] [address] [place] [address] [place] [address] [place] [address] [employer] [address] [place] [address] documented as of this encounter Procedures Procedure Name Priority Date/Time Associated Diagnosis Comments PET BONE IMG W CT SKL BSE MID THG Routine 01/27/2024 12:50 PM CDT documented in this encounter Results * PET BONE IMG W CT SKB (01/27/2024 12:50 PM CDT) Anatomical Region Laterality Modality Other Brant Ratliff MD PE ORDERABLES documented in this encounter Visit Diagnoses Not on filedocumented in this encounter Care Teams Screen Tacker Relationship Specialty Start Date End Date Elvis Lopez MD [facility] [place] [address] PCP - General Family Practice 02/03/24 documented as of this encounter
--- OUTSIDE RECORDS SUMMARY | 2024-06-26 01:34 | XMS_ITS | Encounter Summary ---
Author Organization [facility] [employer] Address [address] [place] [address] Care Team Providers Care Heel Varnisher Name Role Phone Elvis Lopez MD Primary Care Provider [phone] Encounter Details Date Type Department Care Team (Late Contact Info) Description 05/23/2024 Orders Only [facility] Oncology and Hematology [facility] [address] [place] [address] Brant Ratliff MD [address] [place], [place] [email or web address] [address] [place] [address] Social History Tobacco Use Types Packs/Day [...] st Contact Info) Description 07/14/2024 9:00 AM TRANSCRIPTION TYPIST Office Visit [facility] Oncology and Hematology [place] [address] [place] [address] Brant Ratliff MD [address] [employer] [address] [place] [address] documented as of this encounter Procedures Procedure Name Priority Date/Time Associated Diagnosis Comments KAPPA/LAMBDA LIGHT CHAINS Routine 05/16/2024 9:38 AM TRANSCRIPTION TYPIST documented in this encounter Results * KAPPA/LAMBDA, FREE LIGHT CHAINS (05/16/2024 9:38 AM TRANSCRIPTION TYPIST) Blood Brant Ratliff MD CHEMISTRY ORDERABLES documented in this encounter Visit Diagnoses Not on filedocumented in this encounter Care Teams Heel Varnisher Relationship Specialty Start Date End Date Elvis Lopez MD [facility] [place] [address] PCP - General Family Practice 02/03/24 documented as of this encounter
--- OUTSIDE RECORDS SUMMARY | 2024-06-26 01:34 | XMS_ITS | Encounter Summary ---
Author Organization [facility] [employer] Address [address] [place] [address] Care Team Providers Care Child Monitor Name Role Phone Elvis Lopez MD Primary Care Provider [phone] Encounter Details Date Type Department Care Team (Late Contact Info) Description 02/29/2024 Orders Only [facility] Oncology and Hematology [facility] [address] [place] [address] Brant Ratliff MD [address] [place], [place] [address] [address] [place] [address] Social History Tobacco Use Types Packs/Day [...] st Contact Info) Description 07/14/2024 9:00 AM COMPUTER HARDWARE DEVELOPER Office Visit [facility] Oncology and Hematology [place] [address] [place] [address] Brant Ratliff MD [address] [employer] [address] [place] [address] documented as of this encounter Procedures Procedure Name Priority Date/Time Associated Diagnosis Comments COMPREHENSIVE METABOLIC PANEL Routine 02/29/2024 3:26 PM CDT documented in this encounter Results * COMPREHENSIVE METABOLIC PANEL (02/29/2024 3:26 PM CDT) Blood Brant Ratliff MD CHEMISTRY ORDERABLES documented in this encounter Visit Diagnoses Not on filedocumented in this encounter Care Teams Child Monitor Relationship Specialty Start Date End Date Elvis Lopez MD [address] [facility] [place] [address] PCP - General Family Practice 02/03/24 documented as of this encounter
--- OUTSIDE RECORDS SUMMARY | 2024-06-26 01:34 | XMS_ITS | Encounter Summary ---
Author Organization [facility] [employer] Address [address] [place] [address] Care Team Providers Care Stock Parts Inspector Name Role Phone Elvis Lopez MD Primary Care Provider [phone] Encounter Details Date Type Department Care Team (Late Contact Info) Description 02/03/2024 Orders Only [facility] Oncology and [facility] [address] [place] [address] Brant Ratliff MD [address] [employer] [address] [place] [address] Multiple myeloma not having achieved [...] st Contact Info) Description 07/14/2024 9:00 AM MARKETING SPECIALIST Office Visit [facility] Oncology [facility] Hematology [facility] [address] [place] [address] Brant Ratliff MD [address] [employer] [address] [place] [address] Scheduled Orders Name Type Priority Associated Diagnoses Orde r Schedule MISCELLANEOUS LAB TEST Lab Routine Multiple myeloma not having achieved remission Expected: 02/03/2024, Expires: 02/02/2025 documented as of this encounter Procedures Procedure Name Priority Date/Time Associated Diagnosis Comments IRON LEVEL Routine 02/03/2024 4:02 PM CDT CBC WITH DIFFERENTIAL Routine 02/03/2024 3:50 PM CDT documented in this encounter Results * IRON LEVEL (02/03/2024 4:02 PM CDT) Blood Brant Ratliff MD CHEMISTRY ORDERABLES * CBC WITH DIFFERENTIAL (02/03/2024 3:50 PM CDT) Blood Brant Ratliff MD HEMATOLOGY ORDERABLE S documented in this encounter Visit Diagnoses Diagnosis Multiple myeloma not having achieved remission- Primary Multiple myeloma, without mention of having achieved remission documented in this encounter Care Teams Stock Parts Inspector Relationship Specialty Start Date End Date Elvis Lopez MD [address] [facility] [place] [address] PCP - General Family Practice 02/03/24 documented as of this encounter
--- OUTSIDE RECORDS SUMMARY | 2024-06-26 01:34 | XMS_ITS | Encounter Summary ---
Author Organization [facility] [employer] Address [address] [place] [address] Care Team Providers Care Ski Top Trimmer Name Role Phone Elvis Lopez MD Primary Care Provider [phone] Encounter Details Date Type Department Care Team (Late Contact Info) Description 03/27/2024 Abstract [facility] Oncology [facility] [address] [place] [address] Brant Ratliff MD [address] [place], [place] [address] [address] [place] [address] Social History Tobacco Use Types Packs/Day [...] st Contact Info) Description 07/14/2024 9:00 AM A&P TECHNICIAN Office Visit [facility] Oncology [facility] [address] [place] [address] Brant Ratliff MD [address] [employer] [address] [place] [address] documented as of this encounter Visit Diagnoses Not on filedocumented in this encounter Care Teams Ski Top Trimmer Relationship Specialty Start Date End Date Elvis Lopez MD [address] [place] [address] [place] [phone] PCP - General Family Practice 02/03/24 documented as of this encounter
--- OUTSIDE RECORDS SUMMARY | 2024-06-26 01:34 | XMS_ITS | Encounter Summary ---
Author Organization [facility] Address [address] [place] [address] Care Team Providers Care Distributed Energy Systems Consultant Name Role Phone Loc Whaley MD Primary Care Provider [phone] Encounter Details Date Type Department Care Team (Late st Contact Info) Description 01/14/2024 Specialty Pharmacy [facility] [address] [place] [address] Sanjuanita Perez, PHARMACIST Specialty Pharmacy Refill Coordination Social History Tobacco Use Types Packs/Day Years Used Date Smoking Tobacco: Never Smokeless Tobacco: Never Alcohol Use Standard Drinks/Week Comments Never 0 (1 standard drink = 0.6 oz pur e alcohol) Sex and Gender Information Value Date Recorded Sex Assigned at Not on file Gender Identity Not on file Sexual Orientation Not on file documented as of this encounter Progress Notes * Sanjuanita Perez, PHARMACIST - 01/14/2024 1:20 PM CDT [facility] Referral Coordination Note Sloane Elise 1940 Name of medication, strength, formulation: REVLIMID 25 MG Please escribe to: Name of specialty pharmacy: [id number] [address] [facility] will contact prescriber to forward to [facility] specialty pharmacy. Yes [facility] will verify prescriber has sent to above specialty pharmacy. Yes [facility] will contact patient with above information and dis-enroll Yes SPOKE TO PATIENT WHO SAID SHE WAS NOT AWARE OF NEW TREATMENT PLAN, BUT HAS ALREADY GOTTEN A TEXT FROM [employer] ABOUT THE MED. SENT MESSAGE TO [facility] TO HAVE SOMEONE CALL HER TO GO OVER NEW TREATMENT PLAN. Completed by: JOSE Dukes documented in this encounter Plan of Treatment Upcoming Encounters Date Type Department Care Team (Late st Contact Info) Description 07/14/2024 9:00 AM SKIRT MAKER Office Visit [facility] Oncology and Hematology - [place] [address] [facility] [address] [place] [address] Brant Ratliff MD [address] [facility] [address] [place] [address] documented as of this encounter Visit Diagnoses Not on filedocumented in this encounter Care Teams Distributed Energy Systems Consultant Relationship Specialty Start Date End Date Loc Whaley MD [address] [place] [phone] PCP - General Family Practice 11/22/20 02/02/24 documented as of this encounter
--- OUTSIDE RECORDS SUMMARY | 2024-06-26 01:34 | XMS_ITS | Encounter Summary ---
Author Organization [facility] Address [address] [place] [address] Care Team Providers Care Shoe Dyer Name Role Phone Loc Whaley MD Primary Care Provider [phone] Encounter Details Date Type Department Care Team (Late st Contact Info) Description 01/18/2024 External Device Data [facility] ABSTRACTION Provider, Abstract NO ADDRESS ON FILE Social History Tobacco Use Types Packs/Day Years [...] st Contact Info) Description 07/14/2024 9:00 AM BOOKS BINDER Office Visit [facility] Oncology and Hematology - [place] [address] [facility] [address] [place] [address] Brant Ratliff MD [address] [facility] [address] [place] [address] documented as of this encounter Visit Diagnoses Not on filedocumented in this encounter Care Teams Shoe Dyer Relationship Specialty Start Date End Date Loc Whaley MD [address] [place] [phone] PCP - General Family Practice 11/22/20 02/02/24 documented as of this encounter
--- OUTSIDE RECORDS SUMMARY | 2024-06-26 01:34 | XMS_ITS | Encounter Summary ---
Author Organization [facility] Address [address] [place] [address] Care Team Providers Care Compressor Station Operator Name Role Phone Elvis Lopez MD Primary Care Provider Encounter Details Date Type Department Care Team (Late st Contact Info) Description 02/10/2024 External Device Data [facility] ABSTRACTION Provider, Abstract [...] st Contact Info) Description 07/14/2024 9:00 AM STICKER MACHINE OPERATOR Office Visit [facility] Oncology and Hematology - [place] [address] [facility] 200 [place] [address] Brant Ratliff MD [address] [facility] [address] [place] [address] documented as of this encounter Visit Diagnoses Not on filedocumented in this encounter Care Teams Compressor Station Operator Relationship Specialty Start Date End Date Elvis Lopez MD [address] [place] [address] [place] [phone] PCP - General Family Practice 02/03/24 documented as of this encounter
--- OUTSIDE RECORDS SUMMARY | 2024-06-26 01:34 | XMS_ITS | Encounter Summary ---
Author Organization [facility] Address [address] [place] [address] Care Team Providers Care Motion Study Engineer Name Role Phone Loc Whaley MD Primary Care Provider [phone] Encounter Details Date Type Department Care Team [...] st Contact Info) Description 07/14/2024 9:00 AM PEDIGREE RESEARCHER Office Visit [facility] Oncology and Hematology - [place] [address] [facility] [address] [place] [address] Brant Ratliff MD [address] [facility] [address] [place] [address] documented as of this encounter Visit Diagnoses Not on filedocumented in this encounter Care Teams Motion Study Engineer Relationship Specialty Start Date End Date Loc Whaley MD [address] [place] [phone] PCP - General Family Practice 11/22/20 02/02/24 documented as of this encounter
--- OUTSIDE RECORDS SUMMARY | 2024-06-26 01:34 | XMS_ITS | Encounter Summary ---
Author Organization [facility] Address [address] [place] [address] Care Team Providers Care Remedial Teacher Name Role Phone Loc Whaley MD Primary Care Provider [phone] Encounter Details Date Type Department Care Team (Late Contact Info) Description 11/28/2020 Abstract [facility] [address] [address] Provider, Abstract NO ADDRESS ON FILE Social History Tobacco Use Types Packs/Day Years Used Date Smoking Tobacco: Never Assessed Sex and Gender Information Value Date Recorded Sex Assigned at Not on file Gender Identity Not on file Sexual Orientation Not on file COVID-19 Exposure Response Date Recorded In the last month, have you been in contact with someone who was confirmed or suspected to have Coronavirus / COVID-19? No / Unsure 11/22/2020 9:19 AM CDT documented as of this encounter Plan of Treatment Upcoming Encounters Date Type Department Care Team (Late Contact Info) Description 07/14/2024 9:00 AM SAUTE CHEF Office Visit [facility] Oncology and Hematology - [place] [address] [facility] [address] [place] [address] Brant Ratliff MD [address] [facility] [address] [place] [address] documented as of this encounter Visit Diagnoses Not on filedocumented in this encounter Care Teams Remedial Teacher Relationship Specialty Start Date End Date Loc Whaley MD [address] [place] [address] PCP - General Family Practice 11/22/20 02/02/24 documented as of this encounter
--- OUTSIDE RECORDS SUMMARY | 2024-06-26 01:34 | XMS_ITS | Encounter Summary ---
Author Organization [facility] [employer] Address [address] [place] [address] Care Team Providers Care [employer] Advisor Name Role Phone Elvis Lopez MD Primary Care Provider [phone] Encounter Details Date Type Department Care Team (Late Contact Info) Description 03/08/2024 Orders Only [facility] Oncology and Hematology [facility] [address] [place] [address] Brant Ratliff MD [facility] [employer] [address] [place] [address] Social History Tobacco Use Types Packs/Day [...] st Contact Info) Description 07/14/2024 9:00 AM GAUGE AND INSTRUMENT INSPECTOR Office Visit [facility] Oncology and Hematology [place] [address] [place] [address] Brant Ratliff MD [address] [employer] [address] [place] [address] documented as of this encounter Procedures Procedure Name Priority Date/Time Associated Diagnosis Comments COMPREHENSIVE METABOLIC PANEL Routine 03/07/2024 1:52 PM CDT BASIC METABOLIC PANEL Routine 03/07/2024 12:26 PM CDT COMPREHENSIVE METABOLIC PANEL Routine 03/07/2024 12:01 PM CDT documented in this encounter Results * COMPREHENSIVE METABOLIC PANEL (03/07/2024 1:52 PM CDT) Blood Brant Ratliff MD CHEMISTRY ORDERABLES * BASIC METABOLIC PANEL (03/07/2024 12:26 PM CDT) Blood Brant Ratliff MD CHEMISTRY ORDERABLES * COMPREHENSIVE METABOLIC PANEL (03/07/2024 12:01 PM CDT) Blood Brant Ratliff MD CHEMISTRY ORDERABLES documented in this encounter Visit Diagnoses Not on filedocumented in this encounter Care Teams [employer] Advisor Relationship Specialty Start Date End Date Elvis Lopez MD [address] [place] [address] PCP - General Family Practice 02/03/24 documented as of this encounter
--- OUTSIDE RECORDS SUMMARY | 2024-06-26 01:34 | XMS_ITS | Encounter Summary ---
Author Organization [facility] [employer] Address [address] [place] [address] Care Team Providers Care Mogul Operator Name Role Phone Elvis Lopez MD Primary Care Provider [phone] Encounter Details Date Type Department Care Team (Late st Contact Info) Description 05/08/2024 Orders Only [facility] Oncology and [facility] [address] [place] [address] Brant Ratliff MD [facility] [employer] [address] [place] [address] Multiple myeloma not having achieved remission; [...] st Contact Info) Description 07/14/2024 9:00 AM GRAIN DRIER Office Visit [facility] Oncology and [facility] [address] [place] [address] Brant Ratliff MD [address] [employer] [address] [place] [address] documented as of this encounter Visit Diagnoses Diagnosis Multiple myeloma not having achieved remission Multiple myeloma, without mention of having achieved remission Benign hypertension Essential hypertension, benign documented in this encounter Care Teams Mogul Operator Relationship Specialty Start Date End Date Elvis Lopez MD [address] [facility] [place] [address] [place] [address] PCP - General Family Practice 02/03/24 documented as of this encounter
--- OUTSIDE RECORDS SUMMARY | 2024-06-26 01:34 | XMS_ITS | Encounter Summary ---
Author Organization [facility] [employer] Address [address] [place] [address] Care Team Providers Care Automatic Centrifugal Station Operator Name Role Phone Elvis Lopez MD Primary Care Provider [phone] Reason for Visit * Reason Comments Med Refill Encounter Details Date Type Department Care Team (Late st Contact Info) Description 03/17/2024 Refill [facility] Oncology and Hematology [facility] [address] [place] [address] Brant Ratliff MD [address] [facility] [employer] [address] [place] [address] Multiple myeloma not having achieved remission [...] st Contact Info) Description 07/14/2024 9:00 AM PRODUCT TEST SPECIALIST Office Visit [facility] Oncology and Hematology [place] [address] [place] [address] Brant Ratliff MD [address] [facility] [employer] [address] [place] [address] documented as of this encounter Visit Diagnoses Diagnosis Multiple myeloma not having achieved remission- Primary Multiple myeloma, without mention of having achieved remission documented in this encounter Care Teams Automatic Centrifugal Station Operator Relationship Specialty Start Date End Date Elvis Lopez MD [facility] [facility] [place] [phone] PCP - General Family Practice 02/03/24 documented as of this encounter
--- OUTSIDE RECORDS SUMMARY | 2024-06-26 01:34 | XMS_ITS | Encounter Summary ---
Author Organization [facility] [employer] Address [address] [place] [address] Care Team Providers Care Toeing Stockings Name Role Phone Elvis Lopez MD Primary Care Provider [phone] Encounter Details Date Type Department Care Team (Late Contact Info) Description 03/22/2024 Orders Only [facility] Oncology and Hematology [facility] [address] [place] [address] Brant Ratliff MD [facility] [address] [place] [address] Social History Tobacco Use Types Packs/Day [...] st Contact Info) Description 07/14/2024 9:00 AM TELECOMMUNICATIONS PROJECT MANAGER Office Visit [facility] Oncology and Hematology [place] [address] [place] [address] Brant Ratliff MD [address] [employer] [address] [place] [address] documented as of this encounter Procedures Procedure Name Priority Date/Time Associated Diagnosis Comments BASIC METABOLIC PANEL Routine 03/21/2024 3:22 PM CDT COMPREHENSIVE METABOLIC PANEL Routine 03/21/2024 2:09 PM CDT documented in this encounter Results * BASIC METABOLIC PANEL (03/21/2024 3:22 PM CDT) Blood Brant Ratliff MD CHEMISTRY ORDERABLES * COMPREHENSIVE METABOLIC PANEL (03/21/2024 2:09 PM CDT) Blood Brant Ratliff MD CHEMISTRY ORDERABLES documented in this encounter Visit Diagnoses Not on filedocumented in this encounter Care Teams Toeing Stockings Relationship Specialty Start Date End Date Elvis Lopez MD [facility] [facility] [place] [address] PCP - General Family Practice 02/03/24 documented as of this encounter
--- OUTSIDE RECORDS SUMMARY | 2024-06-26 01:34 | XMS_ITS | Encounter Summary ---
Author Organization [facility] Address [address] [place] [address] Care Team Providers Care Cheese Factory Worker Name Role Phone Loc Whaley MD Primary Care Provider [phone] Encounter Details Date Type Department Care Team (Late Contact Info) Description 01/13/2024 Specialty Pharmacy [facility] [address] [facility] [address] [place] [address] Sanjuanita Perez, PHARMACIST Specialty Pharmacy Prior Auth Coordination Social History Tobacco Use Types Packs/Day [...] of this encounter Progress Notes * Sanjuanita Perez PHARMACIST - 01/13/2024 11:39 AM CDT [facility] Prior Authorization Approval Note Sloane Elise 1940 Name of medication, strength, formulation: REVLIMID 25 MG CAPSULE Quantity 14 for 21 days supply Prior authorization approval effective dates: from 01/13/24 to 01/12/25 Diagnosis & ICD 10 Code: C90 Per Factory Assembler: [email or web address] Additional information: $35 - WILL TRIAGE TO [facility] Approval letter scanned into chart. Completed by: JOSE Dukes documented in this encounter Plan of Treatment Upcoming Encounters Date Type Department Care Team (Late Contact Info) Description 07/14/2024 9:00 AM TOOLS PROGRAMMER Office Visit [facility] Oncology and Hematology - [place] [address] [facility] [address] [place] [address] Brant Ratliff MD [address] [facility] [address] [place] [address] documented as of this encounter Visit Diagnoses Not on filedocumented in this encounter Care Teams Cheese Factory Worker Relationship Specialty Start Date End Date Loc Whaley MD [address] [place] [phone] PCP - General Family Practice 11/22/20 02/02/24 documented as of this encounter
--- OUTSIDE RECORDS SUMMARY | 2024-06-26 01:34 | XMS_ITS | Encounter Summary ---
Author Organization [facility] [employer] [facility] Address [address] [place] [address] Care Team Providers Care Real Estate Services Coordinator Name Role Phone Elvis Lopez MD Primary Care Provider [phone] Reason for Referral * Radiology Services (Routine) - Closed Specialty Diagnoses / Procedures Referred By Sharlene uriarte Referred To Contact Diagnoses Multiple myeloma not having achieved remission Procedures XR PORT CONTRAST INJECT W FLUORO Brant Ratliff MD [address] [email or web address] [address] [place] [address] [place] [id number] Referral ID Status Reason Start Date Expiration Date V isits Requested Visits Authorized [id number] Closed [facility] CTS 05/16/2024 06/16/2025 1 1 SUPERINTENDENT Encounter Details Date Type Department Care Team (Late st Contact Info) Description 05/16/2024 Orders Only [facility] Oncology and Hematology [facility] [address] [facility] 200 [place] [address] Brant Ratliff MD [address] [email or web address] [address] [place] [address] Multiple myeloma not having achieved [...] st Contact Info) Description 07/14/2024 9:00 AM DOCK SUPERINTENDENT Office Visit [facility] Oncology and Hematology [facility] [address] [facility] [address] [place] [address] Brant Ratliff MD [address] [facility] [address] [place] [address] Scheduled Orders Name Type Priority Associated Diagnoses Orde r Schedule XR PORT CONTRAST INJECT W FLUORO Imaging Routine Multiple myeloma not having achieved remission 1 Occurrences starting 05/16/2024 until 05/16/2025 documented as of this encounter Procedures Procedure Name Priority Date/Time Associated Diagnosis Comments COMPREHENSIVE METABOLIC PANEL Routine 05/16/2024 3:32 PM DOCK SUPERINTENDENT CBC WITH DIFFERENTIAL Routine 05/16/2024 12:49 PM DOCK SUPERINTENDENT BASIC METABOLIC PANEL Routine 05/16/2024 12:42 PM DOCK SUPERINTENDENT documented in this encounter Results * COMPREHENSIVE METABOLIC PANEL (05/16/2024 3:32 PM DOCK SUPERINTENDENT) Blood Brant Ratliff MD CHEMISTRY ORDERABLES * CBC WITH DIFFERENTIAL (05/16/2024 12:49 PM DOCK SUPERINTENDENT) Blood Brant Ratliff MD HEMATOLOGY ORDERABLE S * BASIC METABOLIC PANEL (05/16/2024 12:42 PM DOCK SUPERINTENDENT) Blood Brant Ratliff MD CHEMISTRY ORDERABLES documented in this encounter Visit Diagnoses Diagnosis Multiple myeloma not having achieved remission- Primary Multiple myeloma, without mention of having achieved remission documented in this encounter Care Teams Real Estate Services Coordinator Relationship Specialty Start Date End Date Elvis Lopez MD [address] [facility] [place] [address] PCP - General Family Practice 02/03/24 documented as of this encounter
--- OUTSIDE RECORDS SUMMARY | 2024-06-26 01:34 | XMS_ITS | Encounter Summary ---
Author Organization [facility] [employer] Address [address] [place] [address] Care Team Providers Care Marketing Automation Manager Name Role Phone Elvis Lopez MD Primary Care Provider [phone] Encounter Details Date Type Department Care Team (Late st Contact Info) Description 05/22/2024 Orders Only [facility] [address] [place] [address] Brant Ratliff MD [facility] [employer] [address] [place] [address] Multiple myeloma not having achieved remission; [...] st Contact Info) Description 07/14/2024 9:00 AM HATCH BOSS Office Visit [facility] [address] [place] [address] Brant Ratliff MD [address] [employer] [address] [place] [address] documented as of this encounter Visit Diagnoses Diagnosis Multiple myeloma not having achieved remission Multiple myeloma, without mention of having achieved remission Benign hypertension Essential hypertension, benign documented in this encounter Care Teams Marketing Automation Manager Relationship Specialty Start Date End Date Elvis Lopez MD [address] [facility] [place] [place] [address] [place] [phone] PCP - General Family Practice 02/03/24 documented as of this encounter
--- OUTSIDE RECORDS SUMMARY | 2024-06-26 01:34 | XMS_ITS | Encounter Summary ---
Author Organization [facility] Address [address] [place] [address] Care Team Providers Care Airset Caster Name Role Phone Loc Whaley MD Primary Care Provider [phone] Encounter Details Date Type Department Care Team [...] st Contact Info) Description 07/14/2024 9:00 AM METAL DOOR ASSEMBLER Office Visit [facility] Oncology and Hematology - [place] [address] [facility] [address] [place] [address] Brant Ratliff MD [address] [facility] [address] [place] [address] documented as of this encounter Visit Diagnoses Not on filedocumented in this encounter Care Teams Airset Caster Relationship Specialty Start Date End Date Loc Whaley MD [address] [place] [phone] PCP - General Family Practice 11/22/20 02/02/24 documented as of this encounter
--- OUTSIDE RECORDS SUMMARY | 2024-06-26 01:34 | XMS_ITS | Encounter Summary ---
Author Organization [facility] [employer] Address [address] [place] [address] Care Team Providers Care Carbon Brush Maker Name Role Phone Elvis Lopez MD Primary Care Provider [phone] Encounter Details Date Type Department Care Team (Late st Contact Info) Description 03/27/2024 Orders Only [facility] Oncology and [facility] [address] [place] [address] Brant Ratliff MD [facility] [employer] [address] [place] [address] Multiple myeloma not having achieved remission; [...] st Contact Info) Description 07/14/2024 9:00 AM FLEXIBLE NANNY Office Visit [facility] Oncology and [facility] [address] [place] [address] Brant Ratliff MD [address] [employer] [address] [place] [address] documented as of this encounter Visit Diagnoses Diagnosis Multiple myeloma not having achieved remission Multiple myeloma, without mention of having achieved remission Benign hypertension Essential hypertension, benign documented in this encounter Care Teams Carbon Brush Maker Relationship Specialty Start Date End Date Elvis Lopez MD [address] [facility] [place] [address] [place] [address] PCP - General Family Practice 02/03/24 documented as of this encounter
--- OUTSIDE RECORDS SUMMARY | 2024-06-26 01:34 | XMS_ITS | Encounter Summary ---
Author Organization [facility] [employer] Address [address] [place] [address] Care Team Providers Care President Commercial Bank Name Role Phone Lco Whaley MD Primary Care Provider [phone] Reason for Visit * Reason Comments Cancer Establish Care Encounter Details Date Type Department Care Team (Late st Contact Info) Description 01/11/2024 10:30 AM CDT Office Visit [facility] Oncology and Hematology - [place] [address] [place] [address] Brant Ratliff MD [address] [employer] [address] [place] [address] Multiple myeloma not having achieved [...] Sign Reading Time Taken Comments Blood Pressure 127/66 01/11/2024 10:44 AM CDT Pulse 81 01/11/2024 10:44 AM CDT Temperature 36.6 ??C (97.8 ??F) 01/11/2024 10:44 AM C DT Respiratory Rate 15 01/11/2024 10:44 AM CDT Oxygen Saturation 93% 01/11/2024 10:44 AM CDT Inhaled Oxygen Concentration - - Weight 94.3 kg (208 lb) 01/11/2024 10:44 AM CDT Height 172.7 cm (5' 8 ) 01/11/2024 10:44 AM CDT Body Mass Index 31.63 01/11/2024 10:44 AM CDT documented in this encounter Progress Notes * Brant Ratliff MD - 01/11/2024 1:19 PM CDT Hematology-oncology consult Note Requesting Physician Loc Whaley MD Primary Care Physician Loc Whaley MD Problem list Patient Active Problem List Diagnosis Code Fibromyalgia M79.7 Spondylolisthesis at L4-L5 level M43.16 Previous TREATMENT ? Measurable Disease ? Reason for Visit Sloane Elise is a 83 y.o. female who was referred for consultation for multiple myeloma. History of present illness This is a 83-year-old female initially seen by Dr. Pittman in 2018 with complaint of back pain and MRI of the spine suggested marrow conversion. 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 Pittman's shelter patient was seen by Dr. Todd in December 2022 and followed up for MGUS. She had last PET scan done on January 08, 2023 showed no evidence of multiple myeloma. Patient had bone marrow biopsy done on November 01, 2023 showed mildly hypercellular marrow with involvement by plasma cell neoplasm about 20% of overall cellularity with kappa light chain restriction. Patient was last seen by Dr. Todd on December 03, 2023 and chemotherapy with VRD regimen along with Darzalex was recommended. Patient came to my office to get the treatment due to her convenience as she lives in this area. Clinically she has arthralgia but denies any other bone pain. She has some chronic peripheral neuropathy. Her weight and appetite stable. Denies any infection. No other new complaints. Past Medical History Past Medical History: Diagnosis Date Aplastic anemia, unspecified COVID Herpes zoster Hyperlipidemia Hypertension Malignant neoplasm Rheumatic fever Surgical History Past Surgical History: Procedure Laterality Date HX BACK SURGERY 1999 HX CATARACT REMOVAL 2018 HX HYSTERECTOMY 1979 HX TONSILLECTOMY 1939 Medications Current Outpatient Medications Medication Sig Dispense Refill atorvastatin (LIPITOR) 20 mg tablet Take 20 mg by mouth daily at bedtime. eszopiclone (LUNESTA) 3 mg Tablet Take 3 mg by mouth nightly as needed. lidocaine (LIDODERM) 5 % Adhesive Patch, Medicated APPLY 1 PATCH TOPICALLY TO THE SKIN DAILY. LEAVEON MOST PAINFUL AREA FOR UP TO 12 HOURS milnacipran (Savella) 25 mg tablet Take 25 mg by mouth daily. ramipriL (ALTACE) 10 mg capsule Take 10 mg by mouth daily. fluticasone propion-salmeteroL (ADVAIR DISKUS,WIXELA INHUB) 250-50 mcg/dose disk inhaler Take 1 Puff by inhalation 2 times daily. gabapentin (NEURONTIN) 600 mg tablet Take 600 mg by mouth 3 times daily. glucosamine HCl/chondroitin velasquez (GLUCOSAMINE-CHONDROITIN ORAL) Take by mouth. VIT B COMP NO.3-XDGPG-C-BIOTIN ORAL Take by mouth. dextromethorphan-guaiFENesin (MUCINEX DM) 30-600 mg Tablet Sustained Release 12HR Take 1 Tablet by mouth every 12 hours. acetaminophen (TYLENOL ARTHRITIS) 650 mg Extended Release tablet Take 650 mg by mouth. metroNIDAZOLE 1 % Gel with Pump Apply to affected area. hydroCHLOROthiazide 25 mg tablet TK 1 T PO QD montelukast (SINGULAIR) 10 mg tablet TK 1 T PO D levothyroxine 50 mcg tablet TK 1 T PO QD ezetimibe (ZETIA) 10 mg tablet TK 1 T PO QD omega 6-xpw-hvd-fish oil (Fish Oil) 100-160-1,000 mg Capsule Take by mouth. MULTIVITAMIN ORAL Take by mouth. TURMERIC ORAL Take by mouth. omeprazole (PriLOSEC) 20 mg Capsule, Delayed Release(E.C.) Take 20 mg by mouth. metoprolol succinate (TOPROL XL) 100 mg Extended Release 24 hour tablet TK 1 T PO D No current facility-administered medications for this visit. Allergies Allergies Allergen Reactions Acetaminophen-Pamabrom Unknown Brompheniramine-Phenylephrine Unknown Carbinoxamine-Pseudoephedrine Unknown Carboxymethylcellulose Sodium Unknown Desloratadine Unknown Dextran 70-Hypromellose (Pf) Unknown Diclofenac Unknown Doxycycline Monohydrate Unknown Wpitxblob-Nsp-Xs-Acetaminophen Unknown Duloxetine Unknown Levofloxacin Unknown Meperidine Unknown Nickel Unknown Phenylephrine-Guaifenesin Unknown Prednisone Unknown Ramelteon Unknown Sulfamethoxazole-Trimethoprim Unknown Trazodone Unknown Trinalin Unknown Ultracef Unknown Alprazolam Other (See Comments) Sleeps all day Amitriptyline Rash Sleeps all day Codeine Anxiety Propoxyphene N-Acetaminophen Rash Tramadol-Acetaminophen Swelling Immunizations: There is no immunization history on file for this patient. Family History Family History Problem Relation Name Age of Onset Heart Disease Father No Known Problems Mother Heart Disease Brother No Known Problems Brother No Known Problems Brother Lung Cancer Brother Diabetes Brother Heart Disease Sister No Known Problems Child No Known Problems Child Social History Social History Tobacco Use Smoking status: Never Smokeless tobacco: Never Substance Use Topics Alcohol use: Never Review of Systems Constitutional: Patient did not mention fever; no night sweats; no anorexia; no weight loss; no fatique NEENT: Patient did not mention headache; no change in vision; no change in hearing; no sore throat;no dysphagia Respiratory: Patient did not mention shortness of breath; no pleuritic chest pain; no cough; no hemoptysis Cardiac: Patient did not mention cardiac-like chest pain; no palpitations; no orthopnea; no PND; noDOE Breasts: Patient did not mention tenderness; no masses GI: Patient did not mention abdominal pain; no nausea; no vomiting; no diarrhea; no hematochezia; no melena : Patient did not mention dysuria; no frequency; no hesitancy; no hematuria 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 No signs of infection or swelling. Eyes: PERRL, conjunctiva normal HEENT: Atraumatic, external ears normal, nose normal, [...] normal sensory function, no focal deficits noted Psychiatric: Speech and behavior appropriate ? labs No results found for this or any previous visit (from the past 24 hour(s)). Labs from December 02 showed WBC 3.7 hemoglobin 11.4 platelet 229,000 creatinine 0.7 calcium 9.7 beta-2microglobulin 3.5 IgA 69 IgM less than 25 IgG level 400 immunofixation study showed free kappa light chain paraprotein. Free kappa light chains 16.7 lambda light chain 0.8 with ratio of 20.3 Pathology ? Imaging & Other Studies Performance Status? ECOG performance status 2 Assessment / Plan: ? 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 Patient has a history of MGUS since 2018 and recently underwentbone marrow aspiration and biopsyon November 01, 2023 showed mildly hypercellular marrow with involvement by plasma cell neoplasm about 20% of overall cellularity with kappa light chain restriction. Her last PET scan was done in December 2022 showed no multiple myeloma. 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 I have discussed cytogenetics in this case withDr. Todd. Based on the available data seems like patient has symptomatic myeloma. Patient hemoglobin remains more than 10, calcium remains less than 11 and kidney function is normal. Serum free light chain ratio is less than 100 but involved free light chain concentration is more than 10 mg/dL at 16.7 to milligram per deciliter. I we will order the PET scan. I will plan to start chemotherapy with VRD regimen with IV Darzalex. Patient will require port placement and chemotherapy teaching. If she fails to tolerate Velcade then we will continue treatment with RD plus Darzalex. Normocytic anemia. We will order iron studies and vitamin B12 level. Antimicrobial prophylaxis. She will receive acyclovir 400 mg twice a day with Bactrim 3 times a week. Thrombosis prophylaxis. She will take baby aspirin. Hypogammaglobulinemia. I will start IV IgG on every 3 months basis. Bone health. Will start monthly Xgeva. Thank you very much for allowing me to participate in Sloane Elise's evaluation and management. Please feel free to contact if I can be of any further assistance in your patient???s care requiring hematology or oncology evaluation. Sincerely, ? ? Brant Ratliff M.D. cell TOBACCO COUNSELING She is not a tobacco/nicotine user. Brant Ratliff MD ,01/11/2024 1:19 PM ? Total time spent 60 minutes, two third of the total time spent counseling patient [id number]. CC:?Loc Whaley MD documented in this encounter Plan of Treatment Upcoming Encounters Date Type Department Care Team (Late st Contact Info) Description 07/14/2024 9:00 AM BUSINESS OFFICE ASSOCIATE Office Visit [facility] On[facility] and Hemat[facility] [address] [place] [address] [facility] [address] [place] [address] Brant Ratliff MD [address] [facility] [address] [place] [address] documented as of this encounter Visit Diagnoses Diagnosis Multiple myeloma not having achieved remission- Primary Multiple myeloma, without mention of having achieved remission documented in this encounter Care Teams President Commercial Bank Relationship Specialty Start Date End Date Loc Whaley MD [address] [id number] PCP - General Family Practice 11/22/20 02/02/24 documented as of this encounter
--- OUTSIDE RECORDS SUMMARY | 2024-06-26 01:34 | XMS_ITS | Encounter Summary ---
Author Organization [facility] Address [address] [place] [address] Care Team Providers Care Machinist Bench Name Role Phone Elvis Lopez MD Primary Care Provider [phone] Encounter Details Date Type Department Care Team [...] st Contact Info) Description 07/14/2024 9:00 AM WASHING MACHINE MECHANIC Office Visit [facility] Oncology and Hematology - [place] [address] [facility] [address] [place] [address] Brant Ratliff MD [address] [facility] [address] [place] [address] documented as of this encounter Visit Diagnoses Not on filedocumented in this encounter Care Teams Machinist Bench Relationship Specialty Start Date End Date Elivs Lopez MD [address] [place] [address] [place] [phone] PCP - General Family Practice 02/03/24 documented as of this encounter
--- OUTSIDE RECORDS SUMMARY | 2024-06-26 01:34 | XMS_ITS | Encounter Summary ---
Author Organization [facility] Address [address] [place] [address] Care Team Providers Care Fire Apparatus Engineer Name Role Phone Loc Whaley MD Primary Care Provider [phone] Encounter Details Date Type Department Care Team (Late Contact Info) Description 11/28/2020 Abstract [facility] [address] [address] Provider, Abstract NO ADDRESS ON [...] (Late Contact Info) Description 07/14/2024 9:00 AM SOLE EDGE INKER MACHINE Office Visit [facility] Oncology and Hematology - [place] [address] [facility] [address] [place] [address] Brant Ratliff MD [address] [facility] [address] [place] [address] documented as of this encounter Visit Diagnoses Not on filedocumented in this encounter Care Teams Fire Apparatus Engineer Relationship Specialty Start Date End Date Loc Whaley MD [address] [place] [place] [address] PCP - General Family Practice 11/22/20 02/02/24 documented as of this encounter
--- OUTSIDE RECORDS SUMMARY | 2024-06-26 01:34 | XMS_ITS | Encounter Summary ---
Author Organization [facility] [employer] Address [address] [place] [address] Care Team Providers Care Classroom Aide Name Role Phone Elvis Lopez MD Primary Care Provider [phone] Encounter Details Date Type Department Care Team (Late Contact Info) Description 04/18/2024 Orders Only [facility] Oncology and Hematology [facility] [address] [place] [address] Brant Ratliff MD [address] [place], [place] [address] [address] [place] [address] Social History Tobacco Use Types Packs/Day [...] st Contact Info) Description 07/14/2024 9:00 AM MANUFACTURING PROCESS TECHNICIAN Office Visit [facility] Oncology and Hematology [place] [address] [place] [address] Brant Ratliff MD [address] [facility] [address] [place] [address] documented as of this encounter Procedures Procedure Name Priority Date/Time Associated Diagnosis Comments CBC WITH DIFFERENTIAL Routine 04/18/2024 3:00 PM CDT BASIC METABOLIC PANEL Routine 04/18/2024 2:39 PM CDT documented in this encounter Results * CBC WITH DIFFERENTIAL (04/18/2024 3:00 PM CDT) Blood Brant Ratliff MD HEMATOLOGY ORDERABLE S * BASIC METABOLIC PANEL (04/18/2024 2:39 PM CDT) Blood Brant Ratliff MD CHEMISTRY ORDERABLES documented in this encounter Visit Diagnoses Not on filedocumented in this encounter Care Teams Classroom Aide Relationship Specialty Start Date End Date Elvis Lopez MD [facility] [place] [address] PCP - General Family Practice 02/03/24 documented as of this encounter
--- OUTSIDE RECORDS SUMMARY | 2024-06-26 01:34 | XMS_ITS | Encounter Summary ---
Author Organization [facility] [employer] Address [address] [place] [address] Care Team Providers Care Senior Enterprise Architect Name Role Phone Elvis Lopez MD Primary Care Provider [phone] Encounter Details Date Type Department Care Team (Late st Contact Info) Description 04/10/2024 Orders Only [facility] Oncology and [facility] [address] [place] [address] Brant Ratliff MD [facility] [employer] [address] [place] [address] Multiple myeloma not having achieved remission; [...] st Contact Info) Description 07/14/2024 9:00 AM CASE HARDENER Office Visit [facility] Oncology and Hematology [facility] [address] [place] [address] Brant Ratliff MD [address] [employer] [address] [place] [address] documented as of this encounter Visit Diagnoses Diagnosis Multiple myeloma not having achieved remission Multiple myeloma, without mention of having achieved remission Benign hypertension Essential hypertension, benign documented in this encounter Care Teams Senior Enterprise Architect Relationship Specialty Start Date End Date Elvis Lopez MD [address] [facility] [place] [address] [place] [phone] PCP - General Family Practice 02/03/24 documented as of this encounter
--- OUTSIDE RECORDS SUMMARY | 2024-06-26 01:34 | XMS_ITS | Encounter Summary ---
Author Organization [facility] [employer] Address [address] [place] [address] Care Team Providers Care Director Speech Language Name Role Phone Elvis Lopez MD Primary Care Provider [phone] Encounter Details Date Type Department Care Team (Late Contact Info) Description 05/24/2024 Orders Only [facility] Oncology and Hematology [facility] [address] [place] [address] Brant Ratliff MD [address] [place], [place] [address] [address] [place] [address] Social History Tobacco Use Types Packs/Day [...] st Contact Info) Description 07/14/2024 9:00 AM ELECTRIC METER INSPECTOR Office Visit [facility] Oncology and Hematology [place] [address] [place] [address] Brant Ratliff MD [address] [facility] [employer] [address] [place] [address] documented as of this encounter Procedures Procedure Name Priority Date/Time Associated Diagnosis Comments COMPREHENSIVE METABOLIC PANEL Routine 05/23/2024 12:54 PM ELECTRIC METER INSPECTOR CBC WITH DIFFERENTIAL Routine 05/23/2024 10:45 AM ELECTRIC METER INSPECTOR BASIC METABOLIC PANEL Routine 05/23/2024 9:48 AM ELECTRIC METER INSPECTOR documented in this encounter Results * COMPREHENSIVE METABOLIC PANEL (05/23/2024 12:54 PM ELECTRIC METER INSPECTOR) Blood Brant Ratliff MD CHEMISTRY ORDERABLES * CBC WITH DIFFERENTIAL (05/23/2024 10:45 AM ELECTRIC METER INSPECTOR) Blood Brant Ratliff MD HEMATOLOGY ORDERABLE S * BASIC METABOLIC PANEL (05/23/2024 9:48 AM ELECTRIC METER INSPECTOR) Blood Brant Ratliff MD CHEMISTRY ORDERABLES documented in this encounter Visit Diagnoses Not on filedocumented in this encounter Care Teams Director Speech Language Relationship Specialty Start Date End Date Elvis Lopez MD [address] [facility] [place] [phone] PCP - General Family Practice 02/03/24 documented as of this encounter
--- OUTSIDE RECORDS SUMMARY | 2024-06-26 01:34 | XMS_ITS | Encounter Summary ---
Author Organization [facility] [employer] Address [address] [place] [address] Care Team Providers Care Field Crop Farm Worker Name Role Phone Elvis Lopez MD Primary Care Provider [phone] Encounter Details Date Type Department Care Team (Late st Contact Info) Description 04/24/2024 Orders Only [facility] Oncology and [facility] [address] [place] [address] Brant Ratliff MD [facility] [employer] [address] [place] [address] Multiple myeloma not having achieved remission; [...] st Contact Info) Description 07/14/2024 9:00 AM WEBSITE ADMIN Office Visit [facility] Oncology and [facility] [address] [place] [address] Brant Ratliff MD [address] [employer] [address] [place] [address] documented as of this encounter Visit Diagnoses Diagnosis Multiple myeloma not having achieved remission Multiple myeloma, without mention of having achieved remission Benign hypertension Essential hypertension, benign documented in this encounter Care Teams Field Crop Farm Worker Relationship Specialty Start Date End Date Elvis Lopez MD [address] [facility] [place] [address] [place] [phone] PCP - General Family Practice 02/03/24 documented as of this encounter
--- OUTSIDE RECORDS SUMMARY | 2024-06-26 01:34 | XMS_ITS | Encounter Summary ---
Author Organization [facility] [employer] Address [address] [place] [address] Care Team Providers Care Director Of Manufacturing Operations Name Role Phone Elvis Lopez MD Primary Care Provider [phone] Reason for Visit * Reason Onset Date Comments Pain 03/03/2024 Encounter Details Date Type Department Care Team (Late st Contact Info) Description 03/03/2024 Telephone [facility] Oncology and Hematology - [place] [address] [place] [address] Brant Ratliff MD [address] [facility] [address] [place] [address] Pain Social History Tobacco Use Types Packs/Day Years Used Date Smoking Tobacco: Never Smokeless Tobacco: Never Alcohol Use Standard Drinks/Week Comments Never 0 (1 standard drink = 0.6 oz pur e alcohol) Sex and Gender Information Value Date Recorded Sex Assigned at Not on file Gender Identity Not on file Sexual Orientation Not on file documented as of this encounter Miscellaneous Notes * Telephone Encounter - Ada Pandey Yara - 03/03/2024 10:29 AM CDT Patient has been complaining about really bad bone pain and body aches since her last treatment. Patient sounds very unsure on the phone if she wants to do treatment or if maybe this is just to much.She kept telling me that she just didn't have any get up and go and that she expected to have bad days but that she thought she would have some good days and she just has not had any good days. I lether know that this can be normal because she just started treatment and her body is trying to adjust. I also let her know that we would want her to take it easy with getting treatment because then that gives her body time to rest and reset before the next treatment. I spoke with Dr. Ratliff and he had offered to prescribe tramadol or norco for the pain depending on how much pain she was having. Patient was unsure of what she wanted to do. At the end of the conversation she said that she would like to try tramadol for the pain and see how that goes. I also did offer patient a follow up appointment with Dr. Ratliff before her next treatment because patient seems very unsure if she wants to go through with anymore treatments. Patient verbalized that she thinks that with all her other diagnosisand medications that they are all just clashing together and making her feel this bad. Patient accepted the appointment on 03/07 and will discuss with Dr. Ratliff further treatment options. documented in this encounter Plan of Treatment Upcoming Encounters Date Type Department Care Team (Late st Contact Info) Description 07/14/2024 9:00 AM SALES INSPECTOR Office Visit [facility] Oncology and Hematology - [place] [address] [place] [address] [address] Brant Ratliff MD [address] [facility] [address] [place] [address] documented as of this encounter Visit Diagnoses Not on filedocumented in this encounter Care Teams Director Of Manufacturing Operations Relationship Specialty Start Date End Date Elvis Lopez MD [address] [facility] [place] [address] PCP - General Family Practice 02/03/24 documented as of this encounter
--- OUTSIDE RECORDS SUMMARY | 2024-06-26 01:34 | XMS_ITS | Encounter Summary ---
Author Organization [facility] Address [address] [place] [address] Care Team Providers Care C D Still Operator Name Role Phone Elvis Lopez MD Primary Care Provider [phone] Reason for Visit * Reason Comments Med Refill Encounter Details Date Type Department Care Team ([facility] Contact Info) Description 02/04/2024 Refill [facility] Oncology and Hematology [place] [address] [place] [address] Brant Ratliff MD [address] [place] [address] [employer] [address] [place] [address] Social History Tobacco Use Types Packs/Day [...] (Late Contact Info) Description 07/14/2024 9:00 AM RETIREMENT PLAN COUNSELOR Office Visit [facility] Oncology and Hematology [place] [address] [place] [address] Brant Ratliff MD [address] [place] [address] [employer] [address] [place] [address] documented as of this encounter Visit Diagnoses Not on filedocumented in this encounter Care Teams C D Still Operator Relationship Specialty Start Date End Date Elvis Lopez MD [address] [facility] [place] [address] PCP - General Family Practice 02/03/24 documented as of this encounter
--- OUTSIDE RECORDS SUMMARY | 2024-06-26 01:34 | XMS_ITS | Encounter Summary ---
Author Organization [facility] [employer] [facility] Address [address] [place] [address] Care Team Providers Care Water Trainer Name Role Phone Elvis Lopez MD Primary Care Provider [phone] Reason for Visit * Reason Comments Chemotherapy Follow Up Encounter Details Date Type Department Care Team (Late st Contact Info) Description 04/11/2024 8:30 AM CDT Office Visit [facility] Oncology and Hematology - [place] [address] [place] [address] Brant Ratliff MD [address] [facility] [employer] [facility] [address] [place] [address] Multiple myeloma not having achieved [...] Sign Reading Time Taken Comments Blood Pressure 157/71 04/11/2024 8:47 AM CDT Pulse 67 04/11/2024 8:42 AM CDT Temperature 36.7 ??C (98 ??F) 04/11/2024 8:42 AM CDT Respiratory Rate 16 04/11/2024 8:42 AM CDT Oxygen Saturation 96% 04/11/2024 8:42 AM CDT Inhaled Oxygen Concentration - - Weight 94.8 kg (209 lb) 04/11/2024 8:42 AM CDT Height - - Body Mass Index 31.78 01/11/2024 10:44 AM CDT documented in this encounter Progress Notes * Brant Ratliff MD - 04/11/2024 9:26 AM CDT HEMATOLOGY / ONCOLOGY PROGRESS NOTE Patient Identification: Name: Sloane Elise Age: 83 y.o. Sex: female : 1940 DIAGNOSIS [place] [facility] multiple myeloma CURRENT TREATMENT VRD Darzalex started January 24, 2024. Velcade cycle 1 started February 22, 2024 IV IgG on every 3 months basis Monthly Xgeva TREATMENT HISTORY SUBJECTIVE Patient came to the office for follow-up visit. So far she has been tolerating chemotherapy well. Denies any chest pain and shortness of breath. Denies any bleeding and bruising. Weight and appetite stable. No other new complaints. Review of system [...] 8.2 hemoglobin 10.5 platelet 238,000 creatinine 1.3 Assessment: Plan: Patient Active Problem List Diagnosis Date Noted Fibromyalgia 11/26/2020 Spondylolisthesis at L4-L5 level 11/26/2020 [place] [facility] multiple myeloma. Patient has a history of MGUS since 2017 and recently underwentbone marrow aspiration and biopsyon [...] on January 24, 2024. Labs noted and stable. Patient will proceed with cycle number 3-day 8 of chemotherapy today. She has been tolerating chemotherapy well. Revlimid dose was reduced to 25 mg on every other day basis. After completion of this cycle of Revlimid she will start Revlimid 15 mg daily for 2 weeks on and 1 week off. Normocytic anemia. Hemoglobin is stable. Antimicrobial prophylaxis. She is asymptomatic on acyclovir and Bactrim. Hypogammaglobulinemia. She will continue IV IgG on every 3 months basis. Bone health. Continue monthly Xgeva. Patient is taking tramadol with good pain control. Thrombosis prophylaxis. Asymptomatic on aspirin. Follow-up in 4 weeks. 04/11/2024 Brant Ratliff MD documented in this encounter Plan of Treatment Upcoming Encounters Date Type Department Care Team (Late st Contact Info) Description 07/14/2024 9:00 AM LOGGING CONTRACTOR Office Visit [facility] Oncology and Hematology [facility] [address] [facility] [address] [place] [address] Brant Ratliff MD [address] [facility] [address] [place] [address] Scheduled Orders Name Type Priority Associated Diagnoses Orde r Schedule COMPREHENSIVE METABOLIC PANEL Lab Stat Multiple myeloma not having achieved remission Expected: 05/12/2024, Expires: 04/11/2025 CBC WITH DIFFERENTIAL Lab Stat Multiple myeloma not having achieved remission Expected: 05/12/2024, Expires: 04/11/2025 IMMUNOGLOBULINS IGG IGA IGM Lab Routine Multiple myeloma not having achieved remission Expected: 05/12/2024, Expires: 04/11/2025 KAPPA/LAMBDA, FREE LIGHT CHAINS Lab Routine Multiple myeloma not having achieved remission Expected: 05/12/2024, Expires: 04/11/2025 PROTEIN ELECTROPHORESIS W/REFLEX,SERUM Lab Routine Multiple myeloma not having achieved remission Expected: 05/12/2024, Expires: 04/11/2025 documented as of this encounter Visit Diagnoses Diagnosis Multiple myeloma not having achieved remission- Primary Multiple myeloma, without mention of having achieved remission documented in this encounter Care Teams Water Trainer Relationship Specialty Start Date End Date Elvis Lopez MD [facility] [place] [address] PCP - General Family Practice 02/03/24 documented as of this encounter
--- OUTSIDE RECORDS SUMMARY | 2024-06-26 01:34 | XMS_ITS | Encounter Summary ---
Author Organization [facility] [employer] Address [address] [place] [address] Care Team Providers Care Electric Cell Tender Name Role Phone Elvis Lopez MD Primary Care Provider [phone] Encounter Details Date Type Department Care Team (Late st Contact Info) Description 04/12/2024 Orders Only [facility] Oncology and Hematology [facility] [address] [place] [address] Brant Ratliff MD [address] [place], [place] [address] [address] [place] [address] Social History Tobacco Use Types Packs/Day [...] st Contact Info) Description 07/14/2024 9:00 AM BEAUTY CULTURIST Office Visit [facility] Oncology and Hematology [place] [address] [place] [address] Brant Ratliff MD [address] [facility] [employer] [address] [place] [address] documented as of this encounter Procedures Procedure Name Priority Date/Time Associated Diagnosis Comments IGG Routine 04/11/2024 9:58 AM CDT documented in this encounter Results * IGG (04/11/2024 9:58 AM CDT) Blood Brant Ratliff MD CHEMISTRY ORDERABLES documented in this encounter Visit Diagnoses Not on filedocumented in this encounter Care Teams Electric Cell Tender Relationship Specialty Start Date End Date Elvis Lopez MD [facility] [place] [address] PCP - General Family Practice 02/03/24 documented as of this encounter
--- OUTSIDE RECORDS SUMMARY | 2024-06-26 01:34 | XMS_ITS | Encounter Summary ---
Author Organization [facility] Address [address] [place] [address] Care Team Providers Care Pre Certification Specialist Name Role Phone Elvis Lopez MD Primary Care Provider [phone] Encounter Details Date Type Department Care Team (Late Contact Info) Description 02/17/[address] [facility] Oncology [facility] [address] [place] [address] Brant Ratliff MD [address] [employer] [address] [place] [address] Multiple myeloma not having achieved remission (Primary Dx); Benign hypertension Social History Tobacco Use Types [...] (Late Contact Info) Description 07/14/2024 9:00 AM MARKET RESEARCH ANALYST Office Visit [facility] Oncology [facility] [address] [place] [address] Brant Ratliff MD [address] [employer] [address] [place] [address] Scheduled Orders Name Type Priority Associated Diagnoses Orde r Schedule COMPREHENSIVE METABOLIC PANEL Lab Routine Multiple myeloma not having achieved remission Every Two Weeks for 99 Occurrences starting 02/17/2024 until 02/16/2025 CBC WITH DIFFERENTIAL Lab Routine Multiple myeloma not having achieved remission Every Two Weeks for 99 Occurrences starting 02/17/2024 until 02/16/2025 BASIC METABOLIC PANEL Lab Routine Multiple myeloma not having achieved remission Every Two Weeks for 99 Occurrences starting 02/17/2024 until 02/16/2025 TSH Lab Routine Benign hypertension Every Two Weeks for 99 Occurrences starting 02/17/2024 until 02/16/2025 documented as of this encounter Visit Diagnoses Diagnosis Multiple myeloma not having achieved remission- Primary Multiple myeloma, without mention of having achieved remission Benign hypertension Essential hypertension, benign documented in this encounter Care Teams Pre Certification Specialist Relationship Specialty Start Date End Date Elvis Lopez MD [facility]7 [facility] [place] [address] [place] [address] PCP - General Family Practice 02/03/24 documented as of this encounter
--- OUTSIDE RECORDS SUMMARY | 2024-06-26 01:34 | XMS_ITS | Encounter Summary ---
Author Organization [facility] [employer] Address [address] [place] [address] Care Team Providers Care Sharepoint Developer Name Role Phone Elvis Lopez MD Primary Care Provider Encounter Details Date Type Department Care Team (Late Contact Info) Description 03/28/2024 Abstract [facility] Oncology [facility] [address] [place] [address] Brant Ratliff MD [address] [place], [place] [address] [address] [place] [address] Social History Tobacco Use Types Packs/Day [...] st Contact Info) Description 07/14/2024 9:00 AM BOBBIN TRUCKER Office Visit [facility] Oncology [facility] [address] [place] [address] Brant Ratliff MD [address] [employer] [address] [place] [address] documented as of this encounter Visit Diagnoses Not on filedocumented in this encounter Care Teams Sharepoint Developer Relationship Specialty Start Date End Date Elvis Lopez MD [address] [place] [address] [place] [address] PCP - General Family Practice 02/03/24 documented as of this encounter
--- OUTSIDE RECORDS SUMMARY | 2024-06-26 01:34 | XMS_ITS | Encounter Summary ---
Author Organization [facility] Address [address] [place] [address] Care Team Providers Care Upholstery Bundler Name Role Phone Elvis Lopez MD Primary Care Provider [phone] Encounter Details Date Type Department Care Team (Late st Contact Info) Description 03/07/2024 External Device Data STL ABSTRACTION Provider, Abstract [...] st Contact Info) Description 07/14/2024 9:00 AM BAND AID MACHINE OPERATOR Office Visit [facility] Oncology and Hematology - [place] [address] [facility] [address] [place] [address] Brant Ratliff MD [address] [facility] [address] [place] [address] documented as of this encounter Visit Diagnoses Not on filedocumented in this encounter Care Teams Upholstery Bundler Relationship Specialty Start Date End Date Elvis Lopez MD [address] [place] [address] [place] [phone] PCP - General Family Practice 02/03/24 documented as of this encounter
--- OUTSIDE RECORDS SUMMARY | 2024-06-26 01:34 | XMS_ITS | Encounter Summary ---
Author Organization [facility] [employer] Address [address] [place] [address] Care Team Providers Care Bench Worker Hollow Handle Name Role Phone Elvis Lopez MD Primary Care Provider [phone] Encounter Details Date Type Department Care Team (Late Contact Info) Description 05/11/2024 Orders Only [facility] Oncology and Hematology [facility] [address] [place] [address] Brant Ratliff MD [facility] [email or web address] [address] [place] [address] Social History Tobacco Use Types Packs/Day [...] st Contact Info) Description 07/14/2024 9:00 AM DIPPER CLOCK AND WATCH HANDS Office Visit [facility] Oncology and Hematology [place] [address] [place] [address] Brant Ratliff MD [address] [employer] [address] [place] [address] documented as of this encounter Procedures Procedure Name Priority Date/Time Associated Diagnosis Comments BASIC METABOLIC PANEL Routine 05/09/2024 3:45 PM DIPPER CLOCK AND WATCH HANDS COMPREHENSIVE METABOLIC PANEL Routine 05/09/2024 3:28 PM DIPPER CLOCK AND WATCH HANDS documented in this encounter Results * BASIC METABOLIC PANEL (05/09/2024 3:45 PM DIPPER CLOCK AND WATCH HANDS) Blood Brant Ratliff MD CHEMISTRY ORDERABLES * COMPREHENSIVE METABOLIC PANEL (05/09/2024 3:28 PM DIPPER CLOCK AND WATCH HANDS) Blood Brant Ratliff MD CHEMISTRY ORDERABLES documented in this encounter Visit Diagnoses Not on filedocumented in this encounter Care Teams Bench Worker Hollow Handle Relationship Specialty Start Date End Date Elvis Lopez MD [address] [facility] [place] [address] PCP - General Family Practice 02/03/24 documented as of this encounter
--- OUTSIDE RECORDS SUMMARY | 2024-06-26 01:34 | XMS_ITS | Encounter Summary ---
Author Organization [facility] [employer] [facility] Address [address] [place] [address] Care Team Providers Care Neurologist Name Role Phone Elvis Lopez MD Primary Care Provider [phone] Reason for Visit * Reason Comments Chemotherapy Follow Up Encounter Details Date Type Department Care Team (Late st Contact Info) Description 03/07/2024 9:00 AM CDT Office Visit [facility] Oncology and Hematology - [place] [address] [place] [address] Brant Ratliff MD [address] [facility] [address] [place] [address] Multiple myeloma not having achieved [...] Sign Reading Time Taken Comments Blood Pressure 125/60 03/07/2024 8:44 AM CDT Pulse 83 03/07/2024 8:44 AM CDT Temperature 36.6 ??C (97.8 ??F) 03/07/2024 8:44 AM CD T Respiratory Rate 20 03/07/2024 8:44 AM CDT Oxygen Saturation 97% 03/07/2024 8:44 AM CDT Inhaled Oxygen Concentration - - Weight 93.4 kg (206 lb) 03/07/2024 8:44 AM CDT Height - - Body Mass Index 31.32 01/11/2024 10:44 AM CDT documented in this encounter Progress Notes * Brant Ratliff MD - 03/07/2024 1:08 PM CDT HEMATOLOGY / ONCOLOGY PROGRESS NOTE Patient Identification: Name: Sloane Elise Age: 83 y.o. Sex: female : 1940 DIAGNOSIS [place] multiple myeloma CURRENT TREATMENT VRD Darzalex started January 24, 2024. Velcade cycle 1 started February 22, 2024 IV IgG on every 3 months basis Monthly Xgeva TREATMENT HISTORY SUBJECTIVE Patient came to the office for follow-up visit. She has been tolerating chemotherapy well other than complaint of tiredness and fatigue and some GI complain of bloating. No melena hematochezia. No other new complaints. Review of system Constitutional: Patient did not mention fevers, sweats, denies any tiredness and fatigue, she has lost 12 pound weight HEENT: Patient did not mention sinus congestion, [...] 183,000 ANC 1000 creatinine 1.3 GFR 39 @IMAGEIMP@ Assessment: Plan: Patient Active Problem List Diagnosis Date Noted Fibromyalgia 11/26/2020 Spondylolisthesis at L4-L5 level 11/26/2020 [place] [facility] multiple myeloma. Patient has a [...] and Darzalex on January 24, 2024. Labs noted. She is experiencing some side effect from chemotherapy. WBC count has dropped. Creatinine has gone up. We will hold Revlimid for 1 week and follow-up in 1 week. Based on the repeat creatinine will decide about Revlimid dose. I will also reduce Velcade to 1 mg/m?? due to neutropenia. Shewill continue Darzalex. Normocytic anemia. Hemoglobin is stable. Antimicrobial prophylaxis. Asymptomatic on acyclovir and Bactrim. Thrombosis prophylaxis. Continue baby aspirin. Hypogammaglobulinemia. Patient is getting IV IgG on every 3-month basis with the first treatment received on February 02. Bone health. Continue monthly Xgeva. Patient will receive tramadol prescription for bone pain. Follow-up in 1 week 03/07/2024 Brant Ratliff MD documented in this encounter Plan of Treatment Upcoming Encounters Date Type Department Care Team (Late st Contact Info) Description 07/14/2024 9:00 AM OPTICAL MODEL MAKER AND TESTER Office Visit [facility] Oncology and Hematology [facility] [address] [facility] [address] [place] [address] Brant Ratliff MD [address] [facility] [address] [place] [address] Scheduled Orders Name Type Priority Associated Diagnoses Orde r Schedule BASIC METABOLIC PANEL Lab Stat Multiple myeloma not having achieved remission Expected: 03/14/2024, Expires: 03/07/2025 CBC WITH DIFFERENTIAL Lab Stat Multiple myeloma not having achieved remission Expected: 03/14/2024, Expires: 03/07/2025 documented as of this encounter Visit Diagnoses Diagnosis Multiple myeloma not having achieved remission- Primary Multiple myeloma, without mention of having achieved remission documented in this encounter Care Teams Neurologist Relationship Specialty Start Date End Date Elvis Lopez MD [address] [facility] [place] [address] PCP - General Family Practice 02/03/24 documented as of this encounter
--- OUTSIDE RECORDS SUMMARY | 2024-06-26 01:34 | XMS_ITS | Encounter Summary ---
Author Organization [facility] [employer] Address [address] [place] [address] Care Team Providers Care Preassembler And Inspector Name Role Phone Elvis Lopez MD Primary Care Provider Encounter Details Date Type Department Care Team (Late Contact Info) Description 03/14/2024 Orders Only [facility] Oncology and Hematology [facility] [address] [place] [address] Brant Ratliff MD [facility] [employer] [address] [place] [address] Social History Tobacco Use Types Packs/Day [...] st Contact Info) Description 07/14/2024 9:00 AM ACCOUNT GROUP SUPERVISOR Office Visit [facility] Oncology and Hematology [place] [address] [place] [address] Brant Ratliff MD [address] [employer] [address] [place] [address] documented as of this encounter Procedures Procedure Name Priority Date/Time Associated Diagnosis Comments COMPREHENSIVE METABOLIC PANEL Routine 03/14/2024 1:34 PM CDT BASIC METABOLIC PANEL Routine 03/14/2024 12:50 PM CDT documented in this encounter Results * COMPREHENSIVE METABOLIC PANEL (03/14/2024 1:34 PM CDT) Blood Brant Ratliff MD CHEMISTRY ORDERABLES * BASIC METABOLIC PANEL (03/14/2024 12:50 PM CDT) Blood Brant Ratliff MD CHEMISTRY ORDERABLES documented in this encounter Visit Diagnoses Not on filedocumented in this encounter Care Teams Preassembler And Inspector Relationship Specialty Start Date End Date Elvis Lopez MD [facility] [place] [address] PCP - General Family Practice 02/03/24 documented as of this encounter
--- OUTSIDE RECORDS SUMMARY | 2024-06-26 01:34 | XMS_ITS | Encounter Summary ---
Author Organization [facility] Address [address] [place] [address] Care Team Providers Care Field Service Technician Poultry Name Role Phone Loc Whaley MD Primary Care Provider [phone] Reason for Referral * Eval and Treat (Routine) - Closed Specialty Diagnoses / Procedures Referred By Sharlene uriarte Referred To Contact Oncology Diagnoses Multiple myeloma not having achieved remission Procedures OR OFFICE/OUTPATIENT ESTABLISHED MOD MDM 30 MIN OR OFFICE/OUTPATIENT NEW MODERATE MDM 45 MINUTES Brant Ratliff MD [address] [facility] [address] [place] [address] [place] [address] Referral ID Status Reason Start Date Expiration Date V isits Requested Visits Authorized [id number] Closed [facility] CTS 01/12/2024 01/12/2025 1 1 * Eval and Treat (Routine) - Closed Specialty Diagnoses / Procedures Referred By Sharlene t Referred To Contact Surgery Diagnoses Multiple myeloma not having achieved remission Procedures OR OFFICE/OUTPATIENT ESTABLISHED MOD MDM 30 MIN OR OFFICE/OUTPATIENT NEW MODERATE MDM 45 MINUTES Brant Ratliff MD [address] [facility] [address] [place] [address] Karan Dean DO [address] [facility] [address] [place] [address] Referral ID Status Reason Start Date Expiration Date V isits Requested Visits Authorized [id number] Closed [facility] CTS 01/12/2024 01/11/2025 1 1 Encounter Details Date Type Department Care Team (Late Contact Info) Description 01/12/2024 Orders Only [facility] Oncology [facility] [address] [place] [address] [place] [address] [place] [address] Multiple myeloma not having achieved remission (Primary Dx); Chronic anemia Social History Tobacco Use Types Packs/Day Years [...] (Late Contact Info) Description 07/14/2024 9:00 AM FERRIS WHEEL ATTENDANT Office Visit [facility] Oncology [facility] [address] [place] [address] Brant Ratliff MD [address] [place] [address] Scheduled Orders Name Type Priority Associated Diagnoses Orde r Schedule FERRITIN Lab Routine Chronic anemia Expected: 01/12/2024, Expires: 01/11/2025 IRON, TIBC, AND PERCENT SATURATION Lab Routine Chronic anemia Expected: 01/12/2024, Expires: 01/11/2025 VITAMIN B12 AND FOLATE Lab Routine Chronic anemia Expected: 01/12/2024, Expires: 01/11/2025 Scheduled Referrals Name Type Priority Associated Diagnoses Order Schedule AMB REFERRAL TO COLORECTAL SURGERY Outpatient Referral Routine Multiple myeloma not having achieved remission Ordered: 01/12/2024 AMB REFERRAL TO CHEMO TEACHING Outpatient Referral Routine Multiple myeloma not having achieved remission Ordered: 01/12/2024 documented as of this encounter Visit Diagnoses Diagnosis Multiple myeloma not having achieved remission- Primary Multiple myeloma, without mention of having achieved remission Chronic anemia Anemia, unspecified documented in this encounter Care Teams Field Service Technician Poultry Relationship Specialty Start Date End Date Loc Whaley MD [address] [place] [phone] PCP - General Family Practice 11/22/20 02/02/24 documented as of this encounter
--- OUTSIDE RECORDS SUMMARY | 2024-06-26 01:34 | XMS_ITS | Encounter Summary ---
Author Organization [facility] [employer] Address [address] [place] [address] Care Team Providers Care Corporate Communications Specialist Name Role Phone Elvis Lopez MD Primary Care Provider [phone] Encounter Details Date Type Department Care Team (Late Contact Info) Description 04/13/2024 Orders Only [facility] Oncology and Hematology [facility] [place] [address] [place] [address] Brant Ratliff MD [address] [place], [place] [address] [place] [address] Social History Tobacco Use Types Packs/Day [...] st Contact Info) Description 07/14/2024 9:00 AM RN REHAB Office Visit [facility] Oncology and Hematology [place] [address] [place] [address] Brant Ratliff MD [address] [employer] [address] [place] [address] documented as of this encounter Procedures Procedure Name Priority Date/Time Associated Diagnosis Comments KAPPA/LAMBDA LIGHT CHAINS Routine 04/12/2024 2:43 PM CDT documented in this encounter Results * KAPPA/LAMBDA, FREE LIGHT CHAINS (04/12/2024 2:43 PM CDT) Blood Brant Ratliff MD CHEMISTRY ORDERABLES documented in this encounter Visit Diagnoses Not on filedocumented in this encounter Care Teams Corporate Communications Specialist Relationship Specialty Start Date End Date Elvis Lopez MD [address] [facility] [place] [address] PCP - General Family Practice 02/03/24 documented as of this encounter
--- OUTSIDE RECORDS SUMMARY | 2024-06-26 01:34 | XMS_ITS | Encounter Summary ---
Author Organization [facility] Address [address] [place] [address] Care Team Providers Care Assistant Branch Operations Manager Name Role Phone Elvis Lopez MD Primary Care Provider [phone] Encounter Details Date Type Department Care Team (Late st Contact Info) Description 03/14/2024 External Device Data STL ABSTRACTION Provider, Abstract [...] st Contact Info) Description 07/14/2024 9:00 AM CO FOUNDER AND CEO Office Visit [facility] Oncology and Hematology - [place] [address] [facility] [address] [place] [address] Brant Ratliff MD [address] [facility] [address] [place] [address] documented as of this encounter Visit Diagnoses Not on filedocumented in this encounter Care Teams Assistant Branch Operations Manager Relationship Specialty Start Date End Date Elvis Lopez MD [address] [place] [address] [place] [address] PCP - General Family Practice 02/03/24 documented as of this encounter
--- OUTSIDE RECORDS SUMMARY | 2024-06-26 01:34 | XMS_ITS | Encounter Summary ---
Author Organization [facility] Address [address] [place] [address] Care Team Providers Care Potato Peeler Name Role Phone Elvis Lopez MD Primary Care Provider [phone] Encounter Details Date Type Department Care Team (Late st Contact Info) Description 02/15/2024 External Device Data STL ABSTRACTION Provider, Abstract [...] st Contact Info) Description 07/14/2024 9:00 AM GLASSWARE FINISHER Office Visit [facility] Oncology and Hematology - [place] [address] [facility] [address] [place] [address] Brant Ratliff MD [address] [facility] [address] [place] [address] documented as of this encounter Visit Diagnoses Not on filedocumented in this encounter Care Teams Potato Peeler Relationship Specialty Start Date End Date Elvis Lopez MD [address] [place] [address] [place] [phone] PCP - General Family Practice 02/03/24 documented as of this encounter
--- OUTSIDE RECORDS SUMMARY | 2024-06-26 01:34 | XMS_ITS | Encounter Summary ---
Author Organization [facility] [employer] Address [address] [place] [address] Care Team Providers Care Scrub Nurse Name Role Phone Elvis Lopez MD Primary Care Provider [phone] Encounter Details Date Type Department Care Team (Late st Contact Info) Description 03/13/2024 Orders Only [facility] Oncology and [facility] [address] [place] [address] Brant Ratliff MD [facility] [place] [address] [place] [address] Multiple myeloma not having achieved remission; [...] st Contact Info) Description 07/14/2024 9:00 AM CRYSTAL SLICER Office Visit [facility] Oncology and [facility] [address] [place] [address] Brant Ratliff MD [address] [place] [address] documented as of this encounter Visit Diagnoses Diagnosis Multiple myeloma not having achieved remission Multiple myeloma, without mention of having achieved remission Benign hypertension Essential hypertension, benign documented in this encounter Care Teams Scrub Nurse Relationship Specialty Start Date End Date Elvis Lopez MD [address] [facility] [place] [address] [place] [address] PCP - General Family Practice 02/03/24 documented as of this encounter
--- OUTSIDE RECORDS SUMMARY | 2024-06-26 01:34 | XMS_ITS | Encounter Summary ---
Author Organization [facility] Address [address] [place] [address] Care Team Providers Care Sap Basis Administrator Name Role Phone Elvis Lopez MD Primary Care Provider [phone] Encounter Details Date Type Department Care Team (Late st Contact Info) Description 02/16/2024 External Device Data STL ABSTRACTION Provider, Abstract [...] st Contact Info) Description 07/14/2024 9:00 AM BRAKE DRUM MOLDER Office Visit [facility] Oncology and Hematology - [place] [address] [facility] [address] [place] [address] Brant Ratliff MD [address] [facility] [address] [place] [address] documented as of this encounter Visit Diagnoses Not on filedocumented in this encounter Care Teams Sap Basis Administrator Relationship Specialty Start Date End Date Elvis Lopez MD [address] [place] [address] [place] [phone] PCP - General Family Practice 02/03/24 documented as of this encounter
--- OUTSIDE RECORDS SUMMARY | 2024-06-26 01:34 | XMS_ITS | Encounter Summary ---
Author Organization [facility] Address [address] [place] [address] Care Team Providers Care Sports Manager Name Role Phone Loc Whaley MD Primary Care Provider [phone] Reason for Visit * Reason Comments LOW BACK PAIN Encounter Details Date Type Department Care Team (Late st Contact Info) Description 11/26/2020 2:00 PM CDT Office Visit [facility] SPINE [facility] PAIN MANAGEMENT [address] [address] [place] [address] [facility] [address] [place] [address] Fibromyalgia (Primary Dx); Spondylolisthesis at L4-L5 level Social History Tobacco Use Types Packs/Day Years [...] AM CDT documented as of this encounter Last Filed Vital Signs Vital Sign Reading Time Taken Comments Blood Pressure 142/72 11/26/2020 2:21 PM CDT Pulse - - Temperature - - Respiratory Rate - - Oxygen Saturation - - Inhaled Oxygen Concentration - - Weight 89.8 kg (198 lb) 11/26/2020 2:21 PM CDT Height - - Body Mass Index - - documented in this encounter Progress Notes * Thanh Hagan MD - 11/26/2020 3:12 PM CDT I had the pleasure of seeing Sloane today at my Neurosurgery Office at [facility]. Sloane is a 79 y.o.female who comes to my office today with complaints of several pains. She has some thoracic pain aswell as lumbar pain. She also has bilateral lower extremity pain. She is also describing shooting pain into her left thigh. In addition she has some dysesthetic pain over her thoracic skin which irritates her when she is wearing clothes or with any light touch brushes by it. She has a significant complicated history of pain control. She was diagnosed with fibromyalgia and seen by chronic pain services on the [place] side. They have tried injections over the past year. They have not helped and giorgio keyaevita stopped doing injections. She has had a diagnosis of low blood disorder that is potentially on the continuum of myeloma. She states she had an MRI from the neck down looking for multiple myeloma and it was negative but she does not have the films to review. She is still seeing an oncologist forthis issue.. No past medical history on file. No past surgical history on file. Social History Socioeconomic History ??? Marital status: Spouse name: Not on file ??? Number of children: Not on file ??? Years of education: Not on file ??? Highest education level: Not on file Occupational History ??? Not on file Tobacco Use ??? Smoking status: Not on file Substance and Sexual Activity ??? Alcohol use: Not on file ??? Drug use: Not on file ??? Sexual activity: Not on file Other Topics Concern ??? Not on file Social History Narrative ??? Not on file Social Determinants of Health Financial Resource Strain: ??? Difficulty of Paying Living Expenses: Food Insecurity: ??? Worried About Running Out of Food in the Last Year: ??? Ran Out of Food in the Last Year: Transportation Needs: ??? Lack of Transportation (Medical): ??? Lack of Transportation (Non-Medical): Physical Activity: ??? Days of Exercise per Week: ??? Minutes of Exercise per Session: Stress: ??? Feeling of Stress : Social Connections: ??? Frequency of Communication with Friends and Family: ??? Frequency of Social Gatherings with Friends and Family: ??? Attends [employer] Services: ??? Active Member of Clubs or Organizations: ??? Attends Club or Organization Meetings: ??? Marital Status: Intimate Partner Violence: ??? Fear of Current or Ex-Partner: ??? Emotionally Abused: ??? Physically Abused: ??? Sexually Abused: No family history on file. Current Outpatient Medications on File Prior to Visit Medication Sig Dispense Refill ??? amLODIPine (NORVASC) 2.5 mg tablet Take 1 Tablet by mouth daily. ??? hydroCHLOROthiazide 25 mg tablet TK 1 T PO QD ??? montelukast (SINGULAIR) 10 mg tablet TK 1 T PO D ??? levothyroxine 50 mcg tablet TK 1 T PO QD ??? ergocalciferol (VITAMIN D2) 50,000 unit capsule TK 1 C PO Q 2 WEEKS UTD ??? ezetimibe (ZETIA) 10 mg tablet TK 1 T PO QD ??? metoprolol succinate (TOPROL XL) 100 mg Extended Release 24 hour tablet TK 1 T PO D ??? fluticasone propionate (FLONASE) 50 mcg/spray [place], Suspension nasal inhaler ??? clobetasoL (TEMOVATE) 0.05 % Ointment Apply to affected area. ??? aspirin (ECOTRIN EC) 81 mg Tablet, Delayed Release (E.C.) Take 81 mg by mouth. ??? omega 8-iby-lmd-fish oil (Fish Oil) 100-160-1,000 mg Capsule Take by mouth. ??? MULTIVITAMIN ORAL Take by mouth. ??? TURMERIC ORAL Take by mouth. ??? niacin (NIACOR) 500 mg tablet Take 500 mg by mouth. ??? vitamin E 400 unit capsule ??? omeprazole (PriLOSEC) 20 mg Capsule, Delayed Release(E.C.) Take 20 mg by mouth. ??? diphenhydrAMINE (BENADRYL) 25 mg capsule Take 25 mg by mouth daily at bedtime. ??? glucosam velasquez vnz-ienjhyefx-E-Mn [id number] mg Capsule ??? magnesium oxide (MAG-OX) 400 mg (241.3 mg magnesium) tablet Take by mouth. No current facility-administered medications on file prior to visit. Allergies Allergen Reactions ??? Codeine Anxiety ??? Propoxyphene N-Acetaminophen Rash ??? Tramadol-Acetaminophen Swelling Review of Systems Musculoskeletal: Positive for arthralgias, back pain and neck pain. Psychiatric/Behavioral: Positive for sleep disturbance. Physical Exam Constitutional: Appearance: She is well-developed. HENT: Head: Normocephalic and atraumatic. Eyes: Conjunctiva/sclera: Conjunctivae normal. Pupils: Pupils are equal, round, and reactive to light. Pulmonary: Effort: Pulmonary effort is normal. Abdominal: Palpations: Abdomen is soft. Skin: General: Skin is warm and dry. Neurological: General: No focal deficit present. Mental Status: She is alert and oriented to person, place, and time. Comments: Strength 5 out of 5 throughout. Diagnostic Data: The patient has CT of the abdomen which shows lumbar spondylosis. X-rays of the lumbar spine show a 2 mm listhesis at L4-L5.. ASSESSMENT: Encounter Diagnosis Name Primary? Fibromyalgia Yes PLAN: Normal BMI Range: 18 & older: > or = 18.5 and < 25 There is no height or weight on file to calculate BMI. Abnormal high BMI: Referral to primary care provider for follow-up on BMI. No orders of the defined types were placed in this encounter. TOBACCO COUNSELING She is not a tobacco user. Assessment and Plan: My assessment at this point is that Sloane is suffering from probable fibromyalgia. She has multiple complaints over spacing time they are indicative of such. She has failed pain management and I would not recommend any further injections. She is seeing an oncologist who has ruled out myeloma by report from the patient. I would continue with care with that oncologist as necessary. No surgery is recommended for her lumbar spondylosis. I be happy to see the patient again if thesituation changes. We spent approximately 30 to 40 minutes in total care of this patient.. documented in this encounter Plan of Treatment Upcoming Encounters Date Type Department Care Team (Late st Contact Info) Description 07/14/2024 9:00 AM VENETIAN BLIND TAPE CUTTER Office Visit [facility] Oncology and Hematology - [place] [address] [place] [address] Brant Ratliff MD [address] [facility] [address] [place] [address] documented as of this encounter Visit Diagnoses Diagnosis Fibromyalgia- Primary Mylagia and myositis, unspecified Spondylolisthesis at L4-L5 level documented in this encounter Care Teams Sports Manager Relationship Specialty Start Date End Date Loc Whaley MD [address] [address] PCP - General Family Practice 11/22/20 02/02/24 documented as of this encounter
--- OUTSIDE RECORDS SUMMARY | 2024-06-26 01:34 | XMS_ITS | Encounter Summary ---
Author Organization [facility] Address [address] [place] [address] Care Team Providers Care Telephone Mechanic Name Role Phone Elvis Lopez MD Primary Care Provider [phone] Encounter Details Date Type Department Care Team (Late st Contact Info) Description 04/25/2024 External Device Data STL ABSTRACTION Provider, [...] st Contact Info) Description 07/14/2024 9:00 AM ACTUARIAL ASSISTANT Office Visit [facility] Oncology and Hematology - [place] [address] [facility] [address] [place] [address] Brant Ratliff MD [address] [facility] [address] [place] [address] documented as of this encounter Visit Diagnoses Not on filedocumented in this encounter Care Teams Telephone Mechanic Relationship Specialty Start Date End Date Elvis Lopez MD [address] [place] [address] [place] [address] PCP - General Family Practice 02/03/24 documented as of this encounter
--- OUTSIDE RECORDS SUMMARY | 2024-06-26 01:34 | XMS_ITS | Encounter Summary ---
Author Organization [facility] [employer] [facility] Address [address] [place] [address] Care Team Providers Care Grab Driver Name Role Phone Elvis Lopez MD Primary Care Provider [phone] Reason for Visit * Reason Onset Date Comments Tremors 02/09/2024 Encounter Details Date Type Department Care Team (Late st Contact Info) Description 02/09/2024 Telephone [facility] Oncology and Hematology - [place] [address] [place] [address] Brant Ratliff MD [address] [facility] [address] [place] [address] Tremors Social History Tobacco Use Types Packs/Day Years [...] Notes * Telephone Encounter - Ada Pandey - 02/09/2024 8:28 AM CDT Patient is aware of recommendations. She verbalized understanding with no further questions. * Telephone Encounter - Ada Pandey - 02/09/2024 8:28 AM CDT ----- Message from Dr. Brant Ratliff sent at 02/08/2024 6:02 PM CDT ----- Regarding: RE: Trembles She may have benign essential tremors. This would not preclude her from starting chemotherapy. If the tremor gets worse and she may have to contact her primary care physician for neurology referral. ----- Message ----- From: Ada Pandey Sent: 02/08/2024 2:46 PM CDT To: Brant Ratliff MD Subject: Trembles Patient called today and stated that she is having some internal trembles. She said that when she holds her hands out in front of her they are shaking as well. She is suppose to start chemotherapy on02/21. Currently she is taking the Revlimid, Bactrim, and acyclovir. Patient is wanting to know if this is normal? Please advise. documented in this encounter Plan of Treatment Upcoming Encounters Date Type Department Care Team (Late st Contact Info) Description 07/14/2024 9:00 AM CIVIL SERVICE CLERK Office Visit [facility] Oncology and Hematology - [place] [address] [facility] [address] [address] Brant Ratliff MD [address] [facility] [address] [place] [address] documented as of this encounter Visit Diagnoses Not on filedocumented in this encounter Care Teams Grab Driver Relationship Specialty Start Date End Date Elvis Lopez MD [address] [place] [address] [place] [address] PCP - General Family Practice 02/03/24 documented as of this encounter
--- OUTSIDE RECORDS SUMMARY | 2024-06-26 01:34 | XMS_ITS | Encounter Summary ---
Author Organization [facility] [employer] Address [address] [place] [address] Care Team Providers Care Braider Tender Name Role Phone Loc Whaley MD Primary Care Provider [phone] Encounter Details Date Type Department Care Team (Late Contact Info) Description 01/14/2024 Orders Only [facility] Oncology and Hematology [facility] [address] [place] [address] Brant Ratliff MD [address] [place] [address] Multiple myeloma not having achieved remission [...] (Late Contact Info) Description 07/14/2024 9:00 AM TRANSPORTATION AIDE Office Visit [facility] Oncology and Hematology [place] [address] [place] [address] Brant Ratliff MD [address] [place] [address] Scheduled Orders Name Type Priority Associated Diagnoses Orde r Schedule DIRECT ANTIGLOBULIN TEST W/REFLEX Blood Bank Routine Multiple myeloma not having achieved remission Expected: 01/14/2024, Expires: 01/13/2025 documented as of this encounter Visit Diagnoses Diagnosis 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
--- OUTSIDE RECORDS SUMMARY | 2024-06-26 01:34 | XMS_ITS | Encounter Summary ---
Author Organization [facility] [employer] [facility] Address [address] [place] [address] Care Team Providers Care Gang Head Saw Operator Name Role Phone Elvis Lopez MD Primary Care Provider [phone] Reason for Visit * Reason Onset Date Comments Orders 05/04/2024 Encounter Details Date Type Department Care Team (Late st Contact Info) Description 05/04/2024 Telephone [facility] Oncology and Hematology - [place] [address] [place] [address] Brant Ratliff MD [address] [employer] [facility] [address] [place] [address] Orders Social History Tobacco Use Types Packs/Day Years [...] * Telephone Encounter - Ada Pandey - 05/04/2024 1:53 PM CST Orders have been placed. Patient will get these labs done next week when she is in infusion. D ENGINEER * Telephone Encounter - Ada Pandey - 05/04/2024 1:51 PM CST ----- Message from Dr. Brant Ratliff sent at 05/04/2024 12:37 PM BRAND ENGINEER ----- Regarding: RE: TSH Results Please order free T4 and T3. ----- Message ----- From: Ada Pandey Sent: 05/04/2024 9:03 AM BRAND ENGINEER To: Brant Ratliff MD Subject: TSH Results Kassandra is asking for you to review patients TSH labs as they continue to be low. D ENGINEER documented in this encounter Plan of Treatment Upcoming Encounters Date Type Department Care Team (Late st Contact Info) Description 07/14/2024 9:00 AM BRAND ENGINEER Office Visit [facility] Oncology and Hematology [facility] [address] [facility] [address] [place] [address] Brant Ratliff MD [address] [facility] [address] [place] [address] Scheduled Orders Name Type Priority Associated Diagnoses Orde r Schedule T4 FREE Lab Routine Low TSH level Expected: 05/04/2024, Expires: 5 T3 FREE Lab Routine Low TSH level Expected: 05/04/2024, Expires: 5 documented as of this encounter Visit Diagnoses Diagnosis Low TSH level- Primary Nonspecific abnormal results of thyroid function study documented in this encounter Care Teams Gang Head Saw Operator Relationship Specialty Start Date End Date Elvis Lopez MD [address] [facility] [place] [address] PCP - General Family Practice 02/03/24 documented as of this encounter
--- OUTSIDE RECORDS SUMMARY | 2024-06-26 01:34 | XMS_ITS | Encounter Summary ---
Author Organization [facility] [email or web address] Address [address] [place] [address] Care Team Providers Care Crowning Hammer Operator Name Role Phone Elvis Lopez MD Primary Care Provider [phone] Encounter Details Date Type Department Care Team (Late Contact Info) Description 03/28/2024 Orders Only [facility] Oncology and Hematology [facility] [address] [place] [address] Brant Ratliff MD [facility] [place] [address] [place] [address] Social History Tobacco Use Types Packs/Day [...] st Contact Info) Description 07/14/2024 9:00 AM LICENSED ESTHETICIAN Office Visit [facility] Oncology and Hematology [place] [address] [place] [address] Brant Ratliff MD [address] [employer] [address] [place] [address] documented as of this encounter Procedures Procedure Name Priority Date/Time Associated Diagnosis Comments BASIC METABOLIC PANEL Routine 03/28/2024 3:58 PM CDT COMPREHENSIVE METABOLIC PANEL Routine 03/28/2024 3:53 PM CDT documented in this encounter Results * BASIC METABOLIC PANEL (03/28/2024 3:58 PM CDT) Blood Brant Ratliff MD CHEMISTRY ORDERABLES * COMPREHENSIVE METABOLIC PANEL (03/28/2024 3:53 PM CDT) Blood Brant Ratliff MD CHEMISTRY ORDERABLES documented in this encounter Visit Diagnoses Not on filedocumented in this encounter Care Teams Crowning Hammer Operator Relationship Specialty Start Date End Date Elvis Lopez MD [facility] [place] [address] PCP - General Family Practice 02/03/24 documented as of this encounter
--- OUTSIDE RECORDS SUMMARY | 2024-06-26 01:34 | XMS_ITS | Encounter Summary ---
Author Organization [facility] [email or web address] Address [address] [place] [address] Care Team Providers Care Service Desk Technician Name Role Phone Elvis Lopez MD Primary Care Provider [phone] Encounter Details Date Type Department Care Team (Late Contact Info) Description 02/25/2024 Orders Only [facility] Oncology and Hematology [facility] Raphael [address] [place] [address] Brant Ratliff MD [facility] [employer] [address] [place] [address] Social History Tobacco Use Types Packs/Day [...] st Contact Info) Description 07/14/2024 9:00 AM MANAGER STERILE PROCESSING Office Visit [facility] Oncology and Hematology [place] Alex [address] [place] [address] Brant Ratliff MD [address] [employer] [employer] [address] [place] [address] documented as of this encounter Procedures Procedure Name Priority Date/Time Associated Diagnosis Comments COMPREHENSIVE METABOLIC PANEL Routine 02/22/2024 9:37 AM CDT BASIC METABOLIC PANEL Routine 02/22/2024 9:07 AM CDT documented in this encounter Results * COMPREHENSIVE METABOLIC PANEL (02/22/2024 9:37 AM CDT) Blood Brant Ratliff MD CHEMISTRY ORDERABLES * BASIC METABOLIC PANEL (02/22/2024 9:07 AM CDT) Blood Brant Ratliff MD CHEMISTRY ORDERABLES documented in this encounter Visit Diagnoses Not on filedocumented in this encounter Care Teams Service Desk Technician Relationship Specialty Start Date End Date Elvis Lopez MD [facility] [place] [address] PCP - General Family Practice 02/03/24 documented as of this encounter
--- OUTSIDE RECORDS SUMMARY | 2024-06-26 01:34 | XMS_ITS | Encounter Summary ---
Author Organization [facility] Address [address] [place] [address] Care Team Providers Care Massotherapist Name Role Phone Loc Whaley MD Primary Care Provider [phone] Reason for Referral * PET Scan (Routine) - Closed Specialty Diagnoses / Procedures Referred By Contac t Referred To Contact Diagnoses Multiple myeloma not having achieved remission Procedures PET TUMOR IMG W CT SKB Brant Garcia MD [address] [place] [address] [place] [address] Referral ID Status Reason Start Date Expiration Date V isits Requested Visits Authorized [id number] Closed STL CTS 01/18/2024 02/17/2025 1 1 Encounter Details Date Type Department Care Team (Late st Contact Info) Description 01/18/2024 3:45 PM CDT Telephone Check Up [facility] Oncology and Hematology [facility] Raphael Irwin [address] [place] [address] Brant Ratliff MD [address] [place] [address] Multiple myeloma not having achieved [...] as of this encounter Progress Notes * Brant Ratliff MD - 01/18/2024 5:21 PM CDT HEMATOLOGY / ONCOLOGY PROGRESS NOTE Patient Identification: Name: Sloane Elise Age: 83 y.o. 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 She has many questions regarding her treatment. Denies any excessive tiredness and fatigue. No bone pain. No neuropathy. Review of system Constitutional: Patient did not mention fevers, sweats, fatigue, malaise, weight loss HEENT: Patient did not mention sinus congestion, [...] dizziness Skin: No lumps, bumps or rashes. Objective: Vital signs in last 24 hours: As per nursing note Exam: This is a audio visit PATH LABS @IMAGEIMP@ Assessment: Plan: Patient Active Problem List Diagnosis Date Noted Fibromyalgia 11/26/2020 Spondylolisthesis at L4-L5 level 11/26/2020 [place] light chain multiple myeloma. Patient has a [...] as deletion of TP 53 PET scan has been ordered. Port placement has been ordered. Patient will start treatment with VRD and Darzalex. Chemotherapy teaching has been ordered. Side effect discussed with the patient. Normocytic anemia. Iron studies and B12 level has been ordered. Antimicrobial prophylaxis. She will receive acyclovir 400 mg twice a day with Bactrim 3 times a week. Thrombosis prophylaxis. She will take baby aspirin. Hypogammaglobulinemia. I will start IV IgG on every 3 months basis. Bone health. Will start monthly Xgeva. Follow-up with me in 4 weeks. ? TOBACCO COUNSELING She is not a tobacco/nicotine user. 01/18/2024 Brant Ratliff MD This encounter was completed via audio-only two way synchronous communication. Patient's identity confirmed yes Patient gave verbal consent to have these services billed to their insurance and expressed understanding that co-insurance and deductible may apply: yes Time spent by the provider delivering the care documented in this encounter 30 minutes. documented in this encounter Plan of Treatment Upcoming Encounters Date Type Department Care Team (Late st Contact Info) Description 07/14/2024 9:00 AM INTERNSHIP COORDINATOR Office Visit [facility] Oncology and Hematology [facility] [address] [facility] [address] [place] [address] Brant Ratliff MD [address] [facility] [address] [place] [address] Scheduled Orders Name Type Priority Associated Diagnoses Orde r Schedule PET TUMOR IMG W CT SKB MDTH Imaging Routine Multiple myeloma not having achieved remission Expected: 01/19/2024, Expires: 01/17/2025 documented as of this encounter Visit Diagnoses Diagnosis Multiple myeloma not having achieved remission- Primary Multiple myeloma, without mention of having achieved remission documented in this encounter Care Teams Massotherapist Relationship Specialty Start Date End Date Loc Whaley MD [address] [place] [id number] PCP - General Family Practice 11/22/20 02/02/24 documented as of this encounter
--- OUTSIDE RECORDS SUMMARY | 2024-06-26 01:34 | XMS_ITS | Encounter Summary ---
Author Organization [facility] Address [address] [place] [address] Care Team Providers Care Conduit Installer Name Role Phone Elvis Lopez MD Primary Care Provider Reason for Visit * Reason Onset Date Comments Medication Refill 02/09/2024 Encounter Details Date Type Department Care Team (Late Contact Info) Description 02/09/2024 Refill [facility] Oncology and Hematology [place] [address] [place] [address] Brant Ratliff MD [address] [place] [address] [employer] [address] [place] [address] Social History Tobacco Use Types Packs/Day [...] (Late Contact Info) Description 07/14/2024 9:00 AM AIRCRAFT MAINTENANCE SUPERVISOR Office Visit [facility] Oncology and Hematology [place] [address] [place] [address] Brant Ratliff MD [facility] [employer] [address] [place] [address] documented as of this encounter Visit Diagnoses Not on filedocumented in this encounter Care Teams Conduit Installer Relationship Specialty Start Date End Date Elvis Lopez MD [address] [facility] [address] [place] [address] PCP - General Family Practice 02/03/24 documented as of this encounter
--- OUTSIDE RECORDS SUMMARY | 2024-06-26 01:34 | XMS_ITS | Encounter Summary ---
Author Organization [facility] [employer] Address [address] [place] [address] Care Team Providers Care Head Of Science Name Role Phone Elvis Lopez MD Primary Care Provider [phone] Reason for Visit * Reason Onset Date Comments Dye Study 05/17/2024 Encounter Details Date Type Department Care Team (Late st Contact Info) Description 05/17/2024 Telephone [facility] Oncology and Hematology [facility] [address] [place] [address] Brant Ratliff MD [address] [email or web address] [address] [place] [address] Dye Study Social History Tobacco Use Types Packs/Day Years [...] * Telephone Encounter - Ada Pandey - 05/17/2024 7:32 AM CST Per infusion center patient is needing dye study for port. It is not working correctly. Orders placed. IGERATION OPERATOR documented in this encounter Plan of Treatment Upcoming Encounters Date Type Department Care Team (Late st Contact Info) Description 07/14/2024 9:00 AM REFRIGERATION OPERATOR [facility] Oncology and Hematology [facility] [address] [place] [address] Brant Ratliff MD [address] [facility] [address] [place] [address] documented as of this encounter Visit Diagnoses Diagnosis Multiple myeloma not having achieved remission- Primary Multiple myeloma, without mention of having achieved remission documented in this encounter Care Teams Head Of Science Relationship Specialty Start Date End Date Elvis Lopez MD [facility]7 [facility] [address] PCP - General Family Practice 02/03/24 documented as of this encounter
--- OUTSIDE RECORDS SUMMARY | 2024-06-26 01:34 | XMS_ITS | Encounter Summary ---
Author Organization [facility] [employer] [facility] Address [address] [place] [address] Care Team Providers Care Machine Wedger Name Role Phone Elvis Lopez MD Primary Care Provider [phone] Reason for Referral * Eval and Treat (Routine) - Closed Specialty Diagnoses / Procedures Referred By Sharlene uriarte Referred To Contact Oncology Diagnoses Multiple myeloma not having achieved remission Procedures UT OFFICE/OUTPATIENT ESTABLISHED MOD MDM 30 MIN UT OFFICE/OUTPATIENT NEW MODERATE MDM 45 MINUTES Brant Ratliff MD [address] [employer] [address] [place] [address] Referral ID Status Reason Start Date Expiration Date V isits Requested Visits Authorized [id number] Closed STL CTS 02/03/2024 02/03/2025 1 1 Reason for Visit * Reason Comments Chemotherapy Follow Up Encounter Details Date Type Department Care Team (Late st Contact Info) Description 02/03/2024 8:45 AM CDT Office Visit [facility] Oncology and Hematology - [place] [address] Irwin [facility] [address] [place] [address] Brant Ratliff MD [address] [employer] [address] [place] [address] Multiple myeloma not having achieved remission [...] Sign Reading Time Taken Comments Blood Pressure 120/69 02/03/2024 8:42 AM CDT Pulse 71 02/03/2024 8:42 AM CDT Temperature 36.4 ??C (97.5 ??F) 02/03/2024 8:42 AM CD T Respiratory Rate 18 02/03/2024 8:42 AM CDT Oxygen Saturation 95% 02/03/2024 8:42 AM CDT Inhaled Oxygen Concentration - - Weight 98.9 kg (218 lb) 02/03/2024 8:42 AM CDT Height - - Body Mass Index 33.15 01/11/2024 10:44 AM CDT documented in this encounter Progress Notes * Brant Ratliff MD - 02/03/2024 9:14 AM CDT HEMATOLOGY / ONCOLOGY PROGRESS NOTE Patient Identification: Name: Sloane Elise Age: 83 y.o. 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 (Patient is waiting to start Velcade and Darzalex.) IV IgG on every 3 months basis Monthly Xgeva TREATMENT HISTORY SUBJECTIVE Patient came to the office for follow-up visit. She has been tolerating Revlimid and dexamethasone well. Denies any bone pain. Denies any fevers and chills. No other new complaints. Review of system [...] deficits noted Exam as above PATH [facility]S @IMAGEIMP@ Assessment: Plan: Patient Active Problem List Diagnosis Date Noted Fibromyalgia 11/26/2020 Spondylolisthesis at L4-L5 level 11/26/2020 [place] light chain multiple myeloma. Patient has a [...] VRD and Darzalex on January 24, 2024. She is still waiting to start Darzalex and Velcade. She has been tolerating Revlimid and dexamethasone well. I plan to see her back in 4 weeks with repeat labs. Normocytic anemia. Iron studies and vitamin B12 level has been ordered. Antimicrobial prophylaxis. Continue acyclovir 400 mg twice a day with Bactrim DS 3 times a week Thrombosis prophylaxis. She will continue baby aspirin. Hypogammaglobulinemia. She will start IV IgG treatment on every 3 months basis today. Bone health. She will start monthly Xgeva next week. Follow-up with labs in 4 weeks. TOBACCO COUNSELING She is not a tobacco/nicotine user. 02/03/2024 Brant Ratliff MD documented in this encounter Plan of Treatment Upcoming Encounters Date Type Department Care Team (Late st Contact Info) Description 07/14/2024 9:00 AM MISSION COMMANDER Office Visit [facility] Oncology and Hematology [facility] [address] [facility] [address] [place] [address] Brant Ratliff MD [address] [facility] [address] [place] [address] Scheduled Orders Name Type Priority Associated Diagnoses Orde r Schedule IMMUNOGLOBULINS IGG IGA IGM Lab Routine Multiple myeloma not having achieved remission Expected: 03/05/2024, Expires: 02/02/2025 KAPPA/LAMBDA, FREE LIGHT CHAINS Lab Routine Multiple myeloma not having achieved remission Expected: 03/05/2024, Expires: 02/02/2025 PROTEIN ELECTROPHORESIS W/REFLEX,SERUM Lab Routine Multiple myeloma not having achieved remission Expected: 03/05/2024, Expires: 02/02/2025 Scheduled Referrals Name Type Priority Associated Diagnoses Orde r Schedule AMB REFERRAL TO CHEMO TEACHING Outpatient Referral Routine Multiple myeloma not having achieved remission Ordered: 02/03/2024 documented as of this encounter Visit Diagnoses Diagnosis Multiple myeloma not having achieved remission- Primary Multiple myeloma, without mention of having achieved remission documented in this encounter Care Teams Machine Wedger Relationship Specialty Start Date End Date Elvis Lopez MD [address] [facility] [place] [address] PCP - General Family Practice 02/03/24 documented as of this encounter
--- OUTSIDE RECORDS SUMMARY | 2024-06-26 01:34 | XMS_ITS | Encounter Summary ---
Author Organization [facility] [employer] Address [address] [place] [address] Care Team Providers Care Dietitian Teacher Name Role Phone Elvis Lopez MD Primary Care Provider [phone] Reason for Visit * Reason Comments Med Refill Encounter Details Date Type Department Care Team ([facility] Contact Info) Description 05/11/2024 Refill [facility] Oncology and Hematology [facility] [address] [place] [address] Luda Linn MD [address] [place] [address] Multiple myeloma not having achieved [...] (Late Contact Info) Description 07/14/2024 9:00 AM BACKSHOE PERSON Office Visit [facility] Oncology and Hematology [facility] [address] [place] [address] Brant Ratliff MD [address] [facility] [employer] [address] [place] [address] documented as of this encounter Visit Diagnoses Diagnosis Multiple myeloma not having achieved remission Multiple myeloma, without mention of having achieved remission documented in this encounter Care Teams Dietitian Teacher Relationship Specialty Start Date End Date Elvis oLpez MD [address] [facility] [place] [address] [place] [address] PCP - General Family Practice 02/03/24 documented as of this encounter
--- OUTSIDE RECORDS SUMMARY | 2024-06-26 01:34 | XMS_ITS | Encounter Summary ---
Author Organization [facility] [employer] [facility] Address [address] [place] [address] Care Team Providers Care Promotions Producer Name Role Phone Elvis Lopez MD Primary Care Provider [phone] Reason for Visit * Reason Comments Chemotherapy Encounter Details Date Type Department Care Team (Late st Contact Info) Description 03/14/2024 9:00 AM CDT Office Visit [facility] Oncology and Hematology - [place] [address] [place] [address] Brant Ratliff MD [address] [facility] [address] [place] [address] Multiple myeloma not having achieved [...] Sign Reading Time Taken Comments Blood Pressure 140/74 03/14/2024 9:06 AM CDT Pulse 75 03/14/2024 9:02 AM CDT Temperature 36.3 ??C (97.3 ??F) 03/14/2024 9:02 AM CD T Respiratory Rate 15 03/14/2024 9:02 AM CDT Oxygen Saturation 95% 03/14/2024 9:02 AM CDT Inhaled Oxygen Concentration - - Weight 93.4 kg (206 lb) 03/14/2024 9:02 AM CDT Height - - Body Mass Index 31.32 01/11/2024 10:44 AM CDT documented in this encounter Progress Notes * Brant Ratliff MD - 03/14/2024 10:09 AM CDT HEMATOLOGY / ONCOLOGY PROGRESS NOTE Patient Identification: Name: Sloane Elise Age: 83 y.o. 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 Velcade cycle 1 started February 22, 2024 IV IgG on every 3 months basis Monthly Xgeva TREATMENT HISTORY SUBJECTIVE Came to the office for follow-up visit and continuation of chemotherapy. She is feeling much betterand stronger after holding the Revlimid for 1 week duration. Denies any night sweats fevers and chills. She has occasional bloating. No other new complaints. Review of system Constitutional: Patient did not mention fevers, sweats, improvement in tiredness and fatigue, weight and appetite stable [...] showed hemoglobin 10.8 creatinine 1.3 GFR 39 Assessment: Plan: Patient Active Problem List Diagnosis Date Noted Fibromyalgia 11/26/2020 Spondylolisthesis at L4-L5 level 11/26/2020 [place] light chain multiple myeloma. Patient has a [...] Darzalex on January 24, 2024. Labs noted. We will proceed with cycle 2-day 1 of chemotherapy today. She will resume Revlimid at alower dose of 25 mg every other day for 2 weeks on and 1 week off until she ran off the current prescription of Revlimid. After that I will prescribe her Revlimid 15 mg for 2 weeks on and 1 week off.She will also continue Velcade and Darzalex. Normocytic anemia. Hemoglobin has improved. Antimicrobial prophylaxis. Asymptomatic on Bactrim and acyclovir. Thrombosis prophylaxis. Asymptomatic on aspirin. Hypogammaglobulinemia. Patient will continue IV IgG on every 3-month basis. Bone health. Continue monthly Xgeva. Patient is receiving tramadol and feeling better with musculoskeletal discomfort. Follow-up in 4 weeks. 03/14/2024 Brant Ratliff MD documented in this encounter Plan of Treatment Upcoming Encounters Date Type Department Care Team (Late st Contact Info) Description 07/14/2024 9:00 AM SALES REPRESENTATIVE FACILITY SERVICES Office Visit [facility] Oncology and Hematology [facility] [address] [facility] [address] [place] [address] Brant Ratliff MD [address] [facility] [address] [place] [address] Scheduled Orders Name Type Priority Associated Diagnoses Orde r Schedule CBC WITH DIFFERENTIAL Lab Stat Multiple myeloma not having achieved remission Expected: 04/13/2024, Expires: 03/14/2025 COMPREHENSIVE METABOLIC PANEL Lab Stat Multiple myeloma not having achieved remission Expected: 04/13/2024, Expires: 03/14/2025 IMMUNOGLOBULINS IGG IGA IGM Lab Routine Multiple myeloma not having achieved remission Expected: 04/13/2024, Expires: 03/14/2025 KAPPA/LAMBDA, FREE LIGHT CHAINS Lab Routine Multiple myeloma not having achieved remission Expected: 04/13/2024, Expires: 03/14/2025 PROTEIN ELECTROPHORESIS W/REFLEX,SERUM Lab Routine Multiple myeloma not having achieved remission Expected: 04/13/2024, Expires: 03/14/2025 documented as of this encounter Visit Diagnoses Diagnosis Multiple myeloma not having achieved remission- Primary Multiple myeloma, without mention of having achieved remission documented in this encounter Care Teams Promotions Producer Relationship Specialty Start Date End Date Elvis Lopez MD [address] [facility] [place] [address] PCP - General Family Practice 02/03/24 documented as of this encounter
--- OUTSIDE RECORDS SUMMARY | 2024-06-26 01:34 | XMS_ITS | Encounter Summary ---
Author Organization [facility] [employer] Address [address] [place] [address] Care Team Providers Care Medical Aide Name Role Phone Elvis Lopez MD Primary Care Provider [phone] Reason for Visit * Reason Onset Date Comments Medication Refill 04/24/2024 Encounter Details Date Type Department Care Team (Late st Contact Info) Description 04/24/2024 Refill [facility] Oncology and Hematology [place] [address] [place] [address] Luda Linn MD [address] [place] [address] Multiple myeloma not having achieved [...] st Contact Info) Description 07/14/2024 9:00 AM MSW Office Visit [facility] Oncology and Hematology [facility] [address] [place] [address] Brant Ratliff MD [address] [employer] [address] [place] [address] documented as of this encounter Visit Diagnoses Diagnosis Multiple myeloma not having achieved remission Multiple myeloma, without mention of having achieved remission documented in this encounter Care Teams Medical Aide Relationship Specialty Start Date End Date Elvis Lopez MD [facility] [facility] [place] [address] [place] [address] PCP - General Family Practice 02/03/24 documented as of this encounter
--- OUTSIDE RECORDS SUMMARY | 2024-06-26 01:34 | XMS_ITS | Encounter Summary ---
Author Organization [facility] [employer] Address [address] [place] [address] Care Team Providers Care Lug Loader Name Role Phone Elvis Lopez MD Primary Care Provider [phone] Encounter Details Date Type Department Care Team (Late Contact Info) Description 04/25/2024 Orders Only [facility] Oncology and Hematology [facility] [address] [place] [address] Brant Ratliff MD [address] [place], [place] [address] [address] [place] [address] Social History Tobacco Use Types Packs/Day [...] st Contact Info) Description 07/14/2024 9:00 AM CHIEF BUSINESS OFFICER Office Visit [facility] Oncology and Hematology [place] [address] [place] [address] Brant Ratliff MD [address] [facility] [email or web address] [address] [place] [address] documented as of this encounter Procedures Procedure Name Priority Date/Time Associated Diagnosis Comments BASIC METABOLIC PANEL Routine 04/25/2024 11:57 AM CHIEF BUSINESS OFFICER CBC WITH DIFFERENTIAL Routine 04/25/2024 11:56 AM CHIEF BUSINESS OFFICER documented in this encounter Results * BASIC METABOLIC PANEL (04/25/2024 11:57 AM CHIEF BUSINESS OFFICER) Blood Brant Ratliff MD CHEMISTRY ORDERABLES * CBC WITH DIFFERENTIAL (04/25/2024 11:56 AM CHIEF BUSINESS OFFICER) Blood Brant Ratliff MD HEMATOLOGY ORDERABLE S documented in this encounter Visit Diagnoses Not on filedocumented in this encounter Care Teams Lug Loader Relationship Specialty Start Date End Date Elvis Lopez MD [facility] [facility] [place] [address] PCP - General Family Practice 02/03/24 documented as of this encounter
--- OUTSIDE RECORDS SUMMARY | 2024-06-26 01:34 | XMS_ITS | Encounter Summary ---
Author Organization [facility] [employer] Address [address] [place] [address] Care Team Providers Care Agency Development Manager Name Role Phone Loc Whaley MD Primary Care Provider [phone] Reason for Visit * Reason Onset Date Comments medication questions with dosageand frequency Encounter Details Date Type Department Care Team (Late st Contact Info) Description 01/24/2024 Telephone [facility] Oncology and Hematology - [place] [address] [place] [address] Brant Ratliff MD [address] [facility] [address] [place] [address] medication questions with dosageand frequency Social History Tobacco Use Types Packs/Day Years [...] encounter Miscellaneous Notes * Telephone Encounter - Love Singh - 01/24/2024 3:24 PM CDT Patient called with questions about her appointment, Dr. Ratliff recommended her to take a baby Asprin daily. Patient wasn't sure on dosage, and frequency to take. Patient said port placement is on Wednesday. I re explained patients treatment medications to her and when to take them because patient was confused. Patient stated understanding. documented in this encounter Plan of Treatment Upcoming Encounters Date Type Department Care Team (Late st Contact Info) Description 07/14/2024 9:00 AM HOUSING OFFICER Office Visit [facility] Oncology and Hematology - [place] [address] [facility] [address] [place] [address] Brant Ratliff MD [address] [facility] [address] [place] [address] documented as of this encounter Visit Diagnoses Not on filedocumented in this encounter Care Teams Agency Development Manager Relationship Specialty Start Date End Date Loc Whaley MD [address] [place] [phone] PCP - General Family Practice 11/22/20 02/02/24 documented as of this encounter
--- OUTSIDE RECORDS SUMMARY | 2024-06-26 01:34 | XMS_ITS | Encounter Summary ---
Author Organization [facility] [email or web address] [facility] Address [address] [place] [address] Care Team Providers Care Field Staff Manager Name Role Phone Elvis Lopez MD Primary Care Provider [phone] Reason for Visit * Reason Comments Chemotherapy Follow Up Encounter Details Date Type Department Care Team (Late st Contact Info) Description 05/16/2024 8:30 AM ACADEMIC DEPARTMENT CHAIR Office Visit [facility] Oncology and Hematology - [place] [address] [place] [address] Brant Ratliff MD [address] [employer] [facility] [address] [place] [address] Multiple myeloma not having achieved [...] Sign Reading Time Taken Comments Blood Pressure 125/70 05/16/2024 8:46 AM ACADEMIC DEPARTMENT CHAIR Pulse 84 05/16/2024 8:46 AM ACADEMIC DEPARTMENT CHAIR Temperature 36.6 ??C (97.8 ??F) 05/16/2024 8:46 AM CS T Respiratory Rate 17 05/16/2024 8:46 AM ACADEMIC DEPARTMENT CHAIR Oxygen Saturation 95% 05/16/2024 8:46 AM ACADEMIC DEPARTMENT CHAIR Inhaled Oxygen Concentration - - Weight 99.1 kg (218 lb 6.4 oz) 05/16/2024 8:46 A M ACADEMIC DEPARTMENT CHAIR Height - - Body Mass Index 33.21 01/11/2024 10:44 AM CDT documented in this encounter Progress Notes * Brant Ratliff MD - 05/16/2024 9:36 AM CST HEMATOLOGY / ONCOLOGY PROGRESS NOTE Patient Identification: Name: Sloane Elise Age: 83 y.o. Sex: female : 1940 DIAGNOSIS [facility] light chain multiple myeloma CURRENT TREATMENT VRD Darzalex started January 24, 2024. Velcade cycle 1 started February 22, 2024 IV IgG on every 3 months basis Monthly Xgeva TREATMENT HISTORY SUBJECTIVE Patient came to the office for follow-up visit. She has been tolerating Revlimid 15 mg better. She denies any bone pain. Denies any neuropathy. Denies any other new complaints. Review of system Constitutional: Patient did not mention fevers, sweats, weight weight and appetite stable, denies any tiredness and fatigue HEENT: Patient did not mention sinus congestion, [...] serum protein electrophoresis showed faint M spike. Assessment: Plan: Patient Active Problem List Diagnosis Date Noted Fibromyalgia 11/26/2020 Spondylolisthesis at L4-L5 level 11/26/2020 [facility] light chain multiple myeloma. Patient has a [...] Darzalex on January 24, 2024. Labs noted. Myeloma results also showed improvement. Patient has been tolerating treatment well other than some steroid side effect with shakiness and facial rash. Patient will proceed with cycle 5-day 1 of chemotherapy today. I will see her back in 4 weeks. Repeat bone marrow biopsy will be performed after completion of cycle 6 before starting maintenance treatment. Normocytic anemia. Stable. Antimicrobial prophylaxis. She is asymptomatic on acyclovir and Bactrim. Hypogammaglobulinemia. She will continue IV IgG on every 3-month basis. Bone health. Continue monthly Xgeva. Pain is under control with tramadol. Thrombosis prophylaxis. She is asymptomatic on aspirin. 05/16/2024 Brant Ratliff MD EMIC DEPARTMENT CHAIR documented in this encounter Plan of Treatment Upcoming Encounters Date Type Department Care Team (Late st Contact Info) Description 07/14/2024 9:00 AM ACADEMIC DEPARTMENT CHAIR Office Visit [facility] Oncology and Hematology [facility] [address] [facility] [address] [place] [address] Brant Ratlfif MD [address] [facility] [address] [place] [address] Scheduled Orders Name Type Priority Associated Diagnoses Orde r Schedule CBC WITH DIFFERENTIAL Lab Stat Multiple myeloma not having achieved remission Expected: 06/15/2024, Expires: 05/16/2025 COMPREHENSIVE METABOLIC PANEL Lab Stat Multiple myeloma not having achieved remission Expected: 06/15/2024, Expires: 05/16/2025 IMMUNOGLOBULINS IGG IGA IGM Lab Routine Multiple myeloma not having achieved remission Expected: 06/15/2024, Expires: 05/16/2025 KAPPA/LAMBDA, FREE LIGHT CHAINS Lab Routine Multiple myeloma not having achieved remission Expected: 06/15/2024, Expires: 05/16/2025 PROTEIN ELECTROPHORESIS W/REFLEX,SERUM Lab Routine Multiple myeloma not having achieved remission Expected: 06/15/2024, Expires: 05/16/2025 documented as of this encounter Visit Diagnoses Diagnosis Multiple myeloma not having achieved remission- Primary Multiple myeloma, without mention of having achieved remission documented in this encounter Care Teams Field Staff Manager Relationship Specialty Start Date End Date Elvis Lopez MD [facility] [place] [address] PCP - General Family Practice 02/03/24 documented as of this encounter
--- OUTSIDE RECORDS SUMMARY | 2024-06-26 01:34 | XMS_ITS | Encounter Summary ---
Author Organization [facility] [employer] Address [address] [place] [address] Care Team Providers Care Preparation Operator Name Role Phone Loc Whaley MD Primary Care Provider [phone] Reason for Visit * Reason Onset Date Comments PET Scan 01/19/2024 Spoke w/ patient to provide PET Scan appt info @ [facility] (01/27/24 @ 930am w/ 9am arrival time) Encounter Details Date Type Department Care Team (Late st Contact Info) Description 01/19/2024 Telephone [facility] Oncology and Hematology [facility] [address] [facility] [address] [place] [address] Brant Ratliff MD [address] [facility] [address] [place] [address] PET Scan (Spoke w/ patient to provide PET Scan appt info @ [facility] (01/27/24 @ 930am w/ 9am arrival time) ) Social History Tobacco Use Types Packs/Day Years [...] encounter Miscellaneous Notes * Telephone Encounter - Manoj Graf - 01/19/2024 9:20 AM CDT Spoke w/ patient to provide PET Scan appt info @ [facility] (01/27/24 @ 930am w/ 9am arrival time) 6hr fast, no coffee, caffeine, or sugar 24hrs prior to appt Patient was then transferred to [place] Scheduling dept to request [facility], rather than [facility]. documented in this encounter Plan of Treatment Upcoming Encounters Date Type Department Care Team (Late st Contact Info) Description 07/14/2024 9:00 AM INTELLIGENCE SPECIALIST Office Visit [facility] Oncology and Hematology - [place] [address] [facility] [address] [place] [address] Brant Ratliff MD [address] [facility] [address] [place] [address] documented as of this encounter Visit Diagnoses Not on filedocumented in this encounter Care Teams Preparation Operator Relationship Specialty Start Date End Date Loc Whaley MD [address] [place] [phone] PCP - General Family Practice 11/22/20 02/02/24 documented as of this encounter
--- OUTSIDE RECORDS SUMMARY | 2024-06-26 01:34 | XMS_ITS | Encounter Summary ---
Author Organization [facility] Address [address] [place] [address] Care Team Providers Care Electrical Systems Design Engineer Name Role Phone Elvis Lopez MD Primary Care Provider [phone] Encounter Details Date Type Department Care Team [...] st Contact Info) Description 07/14/2024 9:00 AM CONCIERGE MANAGER Office Visit [facility] Oncology and Hematology - [place] [address] [facility] [address] [place] [address] Brant Ratliff MD [address] [facility] [address] [place] [address] documented as of this encounter Visit Diagnoses Not on filedocumented in this encounter Care Teams Electrical Systems Design Engineer Relationship Specialty Start Date End Date Elvis Lopez MD [address] [place] [address] [place] [phone] PCP - General Family Practice 02/03/24 documented as of this encounter
--- OUTSIDE RECORDS SUMMARY | 2024-06-26 01:34 | XMS_ITS | Encounter Summary ---
Author Organization [facility] [employer] Address [address] [place] [address] Care Team Providers Care Watcher Automat [employer]s Name Role Phone Elvis Lopez MD Primary Care Provider [phone] Encounter Details Date Type Department Care Team (Late Contact Info) Description 05/03/2024 Orders Only [facility] Oncology and Hematology [facility] [place] [address] [place] [address] Brant Ratliff MD [address] [place], [place] [address] [address] [place] [address] Social History Tobacco Use Types Packs/Day [...] st Contact Info) Description 07/14/2024 9:00 AM BEAD TRIMMER Office Visit [facility] Oncology and Hematology [place] [address] [place] [address] Brant Ratliff MD [address] [facility] [address] [place] [address] documented as of this encounter Procedures Procedure Name Priority Date/Time Associated Diagnosis Comments COMPREHENSIVE METABOLIC PANEL Routine 05/03/2024 3:38 PM BEAD TRIMMER CBC WITH DIFFERENTIAL Routine 05/03/2024 1:24 PM BEAD TRIMMER documented in this encounter Results * COMPREHENSIVE METABOLIC PANEL (05/03/2024 3:38 PM BEAD TRIMMER) Blood Brant Ratliff MD CHEMISTRY ORDERABLES * CBC WITH DIFFERENTIAL (05/03/2024 1:24 PM BEAD TRIMMER) Blood Brant Ratliff MD HEMATOLOGY ORDERABLE S documented in this encounter Visit Diagnoses Not on filedocumented in this encounter Care Teams Watcher [employer]omat [employer] Relationship Specialty Start Date End Date Elvis Lopez MD [facility] [place] [address] PCP - General Family Practice 02/03/24 documented as of this encounter
--- OUTSIDE RECORDS SUMMARY | 2024-06-26 01:34 | XMS_ITS | Encounter Summary ---
Author Organization [facility] [employer] Address [address] [place] [address] Care Team Providers Care Marine Insulator Name Role Phone Loc Whaley MD Primary Care Provider [phone] Reason for Visit * Reason Onset Date Comments Medication Refill 01/14/2024 Encounter Details Date Type Department Care Team ([facility] Contact Info) Description 01/14/2024 Refill [facility] Oncology and Hematology [place] [address] [place] [address] Brant Ratliff MD [address] [place] [address] [place] [address] Social History Tobacco Use Types Packs/Day [...] (Late Contact Info) Description 07/14/2024 9:00 AM GRAIN ELEVATOR SUPERINTENDENT Office Visit [facility] Oncology [facility] Hematology [place] [address] [place] [address] Brant Ratliff MD [address] [place] [address] [employer] [address] [place] [address] documented as of this encounter Visit Diagnoses Not on filedocumented in this encounter Care Teams Marine Insulator Relationship Specialty Start Date End Date Loc Whaley MD [address] [place] [address] PCP - General Family Practice 11/22/20 02/02/24 documented as of this encounter
--- OUTSIDE RECORDS SUMMARY | 2024-06-26 01:34 | XMS_ITS | Encounter Summary ---
Author Organization [facility] [employer] Address [address] [place] [address] Care Team Providers Care Ham Clerk Name Role Phone Elvis Lopez MD Primary Care Provider [phone] Encounter Details Date Type Department Care Team (Late st Contact Info) Description 02/28/2024 Orders Only [facility] Oncology and [facility] [address] [place] [address] Bratn Ratliff MD [facility] [address] [place] [address] Multiple myeloma not having achieved remission; [...] st Contact Info) Description 07/14/2024 9:00 AM STEEL MELTER Office Visit [facility] Oncology and [facility] [address] [place] [address] Brant Ratliff MD [address] [employer] [address] [place] [address] documented as of this encounter Visit Diagnoses Diagnosis Multiple myeloma not having achieved remission Multiple myeloma, without mention of having achieved remission Benign hypertension Essential hypertension, benign documented in this encounter Care Teams Ham Clerk Relationship Specialty Start Date End Date Elvis Lopez MD [address] [facility] [place] [address] [place] [phone] PCP - General Family Practice 02/03/24 documented as of this encounter
--- OUTSIDE RECORDS SUMMARY | 2024-06-26 01:34 | XMS_ITS | Encounter Summary ---
Author Organization [facility] [employer] Address [address] [place] [address] Care Team Providers Care Warping Mill Operator Name Role Phone Elvis Lopez MD Primary Care Provider [phone] Encounter Details Date Type Department Care Team (Late Contact Info) Description 04/06/2024 Orders Only [facility] Oncology and Hematology [facility] [address] [place] [address] Brant Ratliff MD [facility] [employer] [address] [place] [address] Social History Tobacco Use Types Packs/Day [...] st Contact Info) Description 07/14/2024 9:00 AM MEMBER SERVICES REPRESENTATIVE Office Visit [facility] Oncology and Hematology [place] [address] [place] [address] Brant Ratliff MD [address] [employer] [address] [place] [address] documented as of this encounter Procedures Procedure Name Priority Date/Time Associated Diagnosis Comments BASIC METABOLIC PANEL Routine 04/04/2024 1:28 PM CDT COMPREHENSIVE METABOLIC PANEL Routine 04/04/2024 1:11 PM CDT documented in this encounter Results * BASIC METABOLIC PANEL (04/04/2024 1:28 PM CDT) Blood Brant Ratliff MD CHEMISTRY ORDERABLES * COMPREHENSIVE METABOLIC PANEL (04/04/2024 1:11 PM CDT) Blood Brant Ratliff MD CHEMISTRY ORDERABLES documented in this encounter Visit Diagnoses Not on filedocumented in this encounter Care Teams Warping Mill Operator Relationship Specialty Start Date End Date Elvis Lopez MD [facility] [place] [address] PCP - General Family Practice 02/03/24 documented as of this encounter
--- OUTSIDE RECORDS SUMMARY | 2024-06-26 01:34 | XMS_ITS | Encounter Summary ---
Author Organization [facility] [employer] Address [address] [place] [address] Care Team Providers Care Land Agent Name Role Phone Elvis Lopez MD Primary Care Provider [phone] Encounter Details Date Type Department Care Team (Late st Contact Info) Description 04/26/2024 Orders Only [facility] Oncology and Hematology [facility] [address] [place] [address] Brant Ratliff MD [address] [place], [place] [address] [address] [place] [address] Social History Tobacco Use Types Packs/Day [...] st Contact Info) Description 07/14/2024 9:00 AM NETWORK SOLUTIONS ARCHITECT Office Visit [facility] Oncology and Hematology [place] [address] [place] [address] Brant Ratliff MD [address] [employer] [address] [place] [address] documented as of this encounter Procedures Procedure Name Priority Date/Time Associated Diagnosis Comments COMPREHENSIVE METABOLIC PANEL Routine 04/25/2024 8:31 AM NETWORK SOLUTIONS ARCHITECT documented in this encounter Results * COMPREHENSIVE METABOLIC PANEL (04/25/2024 8:31 AM NETWORK SOLUTIONS ARCHITECT) Blood Brant Ratliff MD CHEMISTRY ORDERABLES documented in this encounter Visit Diagnoses Not on filedocumented in this encounter Care Teams Land Agent Relationship Specialty Start Date End Date Elvis Lopez MD [address] [facility] [place] [address] PCP - General Family Practice 02/03/24 documented as of this encounter
--- OUTSIDE RECORDS SUMMARY | 2024-06-26 01:35 | XMS_ITS | Encounter Summary ---
Author Organization [facility] Address [address] [place] [address] Phone Care Team Providers Care Hand Tapper Name Role Phone Elvis Lopez MD Primary Care Provider [phone] Catherine Todd MD Unavailable [phone] Reason for Visit * Reason Comments Follow-up Encounter Details Date Type Department Care Team (Latest Contact Info) Description 12/03/2023 1:40 PM CDT Office Visit [facility] Bone Marrow Transplant [facility] [address] [place] [address] Catherine Todd MD [address] BONE MARROW [employer]ANSPL[employer] [place], [place] [id number] Multiple myeloma not having achieved remission (CMS/HCC) (HCC) (Primary Dx); Nonfamilial hypogammaglobulinemia (HCC); Pulmonary hypertension (HCC) Social History Tobacco Use Types Packs/Day Years Used Date Smoking Tobacco: Never Smokeless Tobacco: Never Alcohol Use Standard Drinks/Week Comments Never 0 (1 standard drink = 0.6 oz pur e alcohol) AUDIT-C Answer Date Recorded Frequency of Alcohol Consumption Never 08/29/2018 Average Number of Drinks Not on file 019 Frequency of Binge Drinking Not on file 08/19 Personal Safety Answer Date Recorded Have you ever been in or are you currently in a harmful physical or emotional relationship or is someone making you feel afraid or unsafe? 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 Gender Identity Female 06/07/2020 11:17 AM DRINK BOX MECHANIC Sexual Orientation Straight 06/07/2020 11 :17 AM DRINK BOX MECHANIC documented as of this encounter Last Filed Vital Signs Vital Sign Reading Time Taken Comments Blood Pressure 136/69 12/03/2023 1:59 PM CDT Pulse 74 12/03/2023 1:59 PM CDT Temperature 36.8 ??C (98.3 ??F) 12/03/2023 1 :59 PM CDT Respiratory Rate 18 12/03/2023 1:59 PM CDT Oxygen Saturation 98% 12/03/2023 1:5 9 PM CDT Inhaled Oxygen Concentration - - Weight 95.3 kg (210 lb 3.2 oz) 12/03/19 24 1:59 PM CDT with shoes Height - - Body Mass Index 31.96 11/01/2023 1:10 PM CDT documented in this encounter Ordered Prescriptions Prescription Sig Dispense Quantity Refills Last Filled Start Date End Date aspirin 325 mg tabletIndications :Multiple myeloma not having achieved remission (CMS/HCC) (HCC) Take 1 tablet (325 mg total) by mouth daily Take while on lenalidomide (Revlimid) therapy. 30 tablet 11 12/16/2023 4 prochlorperazine (Compazine) 10 mg tabletIndications :Multiple myeloma not having achieved remission (CMS/HCC) (HCC) Take 1 tablet (10 mg total) by mouth every 6 (six) hours as needed for nausea or vomiting 30 tablet 3 12/16/2023 4 acyclovir (ZOVIRAX) 400 mg tabletIndications :Multiple myeloma not having achieved remission (CMS/HCC) (HCC) Take 1 tablet (400 mg total) by mouth 3 (three) times a day 90 tablet 11 12/16/2023 4 documented in this encounter Progress Notes * Catherine Todd MD - 12/03/2023 1:40 PM CDT Images from the original note were not included. BMT Oncology Progress Note PATIENT NAME: Rigoberto Elise : 1940 AUSTYN: 12/03/2023 Primary Care Physician: Yosi Whaley MD Cancer Staging No matching staging information was found for the patient. 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 Referred for marrow conversion noted on MRI of the spine. He saw her initially in 2019 as a 77-year-old white female, who was referred with complaints of significant back pain. She underwent radiographs, including an MRI of the spine and the report on the MRI of the spine, showed evidence to suggest marrow conversion. Because of these findings, she saw Hematology. She has a known history of fibromyalgia. And this is her limiting factor, in her ability to carry out her activities of daily living. 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 She underwent bone marrow studies, and no specific abnormalities was found. She had no fevers, night sweats, any weight loss. She denies any history of smoking. No history of diabetes. She is overweight. December 16, 2021, comes in today for routine follow-up. Main problem that she has is related to arthritis. She is having to use a walker to aid in ambulation. Denies any severe pain. She underwent laboratory testing on December 04, her values remains stable. She still has an elevated serum kappa/ratio. Plan is to continue to monitor her in 1 year for her history of MGUS. December 10, 2020 comes in today for follow-up of her history of monoclonal gammopathy of unknown significance. She underwent laboratory testing on November 21, 2020. The results were similar to before, she still has an elevated serum kappa with a high ratio but unchanged from several years ago. Her CMP showed evidence of chronic kidney disease, with a GFR of 48 mL/min. From my perspective, from her history of MGUS, she remains stable. July 10, 2019 , she comes in today for follow-up. When she comes in, she is in a wheelchair, shetells me that pain continues to get worse, and her back, down both thigh, even down to the ankle. She has continued to follow-up with pain management, and they are thinking about a back pain stimulator device. I had received a note from Dr. Whaley, about having bone marrow studies carried out. I wanted to wait until I had seen her to make that decision. She underwent laboratory testing on May 29, 2019, CBC was unremarkable, metabolic profile was also unremarkable. IgG was 337, IgA was 56, IgM was 24. Serum kappa was 121.8, serum lambda was 6.6, for a ratio of 18.45. Beta 2 microglobulin level was 2.85. Her current laboratory values appear to be unchanged. However, her back pain is getting worse, whenroshan came in today, she is on a wheelchair because of the back pain that she is experiencing. I spoke with them, and I told him that I would arrange for a PET scan to be carried out, based uponthe results of the same, we will decide if we need to proceed with bone marrow studies. Her currentlaboratory values appear to be stable, in that there is no change from prior testing. March 06 2019, comes in today for routine follow-up. She underwent laboratory testing on February 27, 2019. Hemoglobin is 12.1 g, white cell count was 4.9, platelet count was [id number]. Metabolic profile was unremarkable. IgG was 350, IgA was 56, IgM was 25. Beta 2 microglobulin level was 2.95. Serum kappa was 138, serum lambda was 7.8, for a ratio of 17.7. At this time, her laboratory values remains stable. The pattern does suggest a monoclonal gammopathy of unknown significance. Continue routine follow-up. No therapeutic recommendations at this time. December 05, 2018, she comes in today for routine follow-up. She underwent laboratory testing prior to her visit today. Metabolic profile showed a total protein of 6, globulin fraction was 1.8. Calcium level was normal. Liver function tests, kidney function were normal. CBC was unremarkable. Serum kappa was 112, serum lambda was 6.1, for a ratio of 18.39. I spoke to her about the results of the testing, she remains totally asymptomatic and fully functional. Continue to follow, and repeat laboratory testing in 3 months for her monoclonal gammopathy of unknown significance. September 05, 2017, she comes in today for results of laboratory testing carried out August 29. A CBC showed a white cell count of 7.1 with a normal differential, hemoglobin was 13 g, and a platelet countof [id number]. A complete metabolic profile was unremarkable. LDH was normal. Thyroid function test were normal. A serum protein electrophoresis showed an M spike of 0.2. Quantitative immunoglobulin showed an IgG of 386, IgA of 52, both of these values are below normal, and an IgM of 31. A free kappa of 90.7, free lambda of 6.6, for a ratio of 13.74. I spoke to them, about the results of the testing. I cannot rule out the possibility that this could represent a monoclonal gammopathy of unknown significance. However, we do not have any evidence ofany hematological disorder at this time. 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 lady with acquired hypogammaglobulinemia. She had contracted Covid-19 in 2020, has multiple symptoms affecting her mobility, ability to walk unassisted she denies any weight loss, and has consistently demonstrated elevated free kappa light chains as well as lambda FLCs on her blood work typically done at [facility] prior to her visit today. 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 She had been treated by Dr. Pittman with JESSE injections but I have no record of her labs and marrow at that time. She was severely immunicompromized at that point in time as she relayed a history of fatigue and recurrent sinoplumonary infections often seen in patient with B cell immunodeficiency and severe acquired hypogammaglobulinemia. I don't have any pathology results that suggest a positive immunofixation test and although she mayhave a faint band on SPEP we cannot be absolutely sure we are dealing with a plasma cell dyscrasia without a bone marrow examination which she is reluctant to agree to given her advanced age of 82. She had been treated in the past with prednisone which may contribute to immunodeficiency. She has no renal failure, no anemia, no hypercalcemia. Her last PET CT scan was on , and it failed to show any active myeloma. She is on an antidepressant and nerve pain medication Savella for fibromyalgia. She is on Norvasc, Ramipril, Toprol-XL, Hydrodiuril for hypertension, Lunesta for insomnia, singular for asthma / COPD,for hyperlipidemia she take ezetemibe and atorvastatin and is on aspirin, levothyroxine for hypothyroidism. Her medication list was reconciled. Ms Elise continues to have an elevated Karl[place] FLC and no deterioration in her GFR. She had no bone marrow aspirate and biopsy since her diagnosis and we encouraged her to work with us to allow us to repeat [place] [facility] if necessary under sedation. Her is nearly blind and she cannot drive down to [place] in [facility]. We will work with her and her [place] of friends and social work to allow her to have a marrow aspirate and biopsy to work her up for plasma cell dysrasia. If she has multiple myeloma she may benefit from daratumomab. We will also check her immunocompetence testing since her IgG is low at 387 mg/dL. 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 She has anemia and elevated free light chains and no paraprotein. Her bone marrow was mildly hypercellular 30-40%, had fibrosis MF-1, and increased plasma cells expressing CD138 and CD117, accounting for 20% of the overall cellularity. 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 ABNORMAL FISH FINDINGS: MONOSOMY OF FGFR3 (4p) - 13% TETRASOMY OF CCND1 (11q) - 67% TRISOMY OF IGH (14q) - 19.67% TETRASOMY OF IGH (14q) - 22.17% MONOSOMY 17 (TP53,D17Z1) - 11.5% DELETION OF TP53 (17p) - 10.5% NO EVIDENCE OF IGH::FGFR3, IGH::CCND1, OR IGH::MAF REARRANGEMENTS Patient was very anxious and worried she may not be able to tolerate best available myeloma therapy. I tried to reassure her and will also see if we can identify a provider closer to home who can assume her care if she is unable to come weekly to [place] for treatment. Recent Phase 3 Trial evidence supports the use of an anti CD38 monoclonal antibody such as Isatuximab + VRd (Christen Banuelos et al: Isatuximab, Bortezomib, Lenalidomide, and Dexamethasone for Multiple Myeloma, [facility] November 22 2023, also presented at [facility] 2023). The results in older unfit myeloma patients who are not destined for autologous hematopoietic stem cell transplantation are impressive with PFS at 60 months = 63.2% as compared to VRd alone 45.2%. If her insurance compa fails to cover Isatuximab we can subtitute Daratumomab. We will monitor her [place] Free Light chains to monitor response. 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 (CMS/HCC) (HCC) Mitral regurgitation Tricuspid regurgitation Pulmonary hypertension (CMS/HCC) (HCC) Other chest pain Past Medical History: Diagnosis Date Age-related nuclear cataract Senile nuclear cataract - (Added by TW Conv) Anemia Borderline glaucoma, open angle with borderline findings Open Angle Borderline Glaucoma In Both Eyes - (Added by TW Conv) Chronic kidney disease Heart murmur Hypercholesteremia Hypertension Multiple myeloma (HCC) Open angle with borderline findings and low glaucoma risk in both eyes Borderline glaucoma, open angle with borderline findings, bilateral - (Added by TW Conv) Sleep apnea Thyroid disease Past Surgical History: Procedure Laterality Date BLADDER REPAIR COLONOSCOPY FOOT SURGERY HYSTERECTOMY TONSILLECTOMY/ADENOIDECTOMY Allergies Allergen Reactions Tramadol-Acetaminophen Swelling Adoxa [Doxycycline Monohydrate] Unknown Bextra [Valdecoxib] Unknown Bion Tears (Pf) [Dextran 70-Hypromellose (Pf)] Unknown Bromfed [Brompheniramine-Phenylephrine] Unknown Clarinex [Desloratadine] Unknown Codeine Demerol [Meperidine] Unknown Diclofenac Unknown Duloxetine Unknown Entex [Phenylephrine-Guaifenesin] Unknown Hismanal Unknown Indomethacin Unknown Levofloxacin Loratadine Unknown Midol [Acetaminophen-Pamabrom] Unknown Nabumetone Nickel Nyquil Unknown Piroxicam Prednisone Propoxyphene-Acetaminophen Refresh Tears [Carboxymethylcellulose Sodium] Unknown Rondec [Carbinoxamine-Pseudoephedrine] Unknown Rozerem [Ramelteon] Unknown Septra [Sulfamethoxazole-Trimethoprim] Unknown Trazodone Trinalin Unknown Ultracef Unknown Alprazolam Other (See comments) Sleeps all day Amitriptyline Other (See comments) Sleeps all day Extendryl [Tzvcvdmepzyltpxq-Py-Wohagxqvay] Other (See comments) Hard to awaken Seldane Other (See comments) Upset stomach Immunization History Administered Date(s) Administered Influenza, Trivalent, High Dose, Split, Preservative Free, Intramuscular 03/25/2018 Influenza, Unspecified 03/31/2018 Pneumococcal, Unspecified 03/31/2018 Outpatient Encounter Medications as of 12/03/2023: acetaminophen ER (Tylenol Arthritis Pain) 650 mg 8 hr tablet, Take 1 tablet (650 mg total) by mouthevery 8 (eight) hours as needed for pain, Disp: , Rfl: amLODIPine (NORVASC) 2.5 mg tablet, TK 1 T PO QD, Disp: , Rfl: 8 aspirin 81 mg tablet, Take 1 tablet (81 mg total) by mouth every other day, Disp: , Rfl: atorvastatin (LIPITOR) 20 mg tablet, Take 1 tablet (20 mg total) by mouth nightly at bedtime, Disp:, Rfl: cholecalciferol (VITAMIN D-3) 50,000 unit capsule, TAKE ONE CAPSULE BY MOUTH EVERY 2 WEEKS (Patientnot taking: Reported on 08/27/2023), Disp: , Rfl: docosahexanoic acid/epa (FISH OIL ORAL), Take by mouth, Disp: , Rfl: eszopiclone (LUNESTA) 3 mg tablet, Take by mouth nightly as needed, Disp: , Rfl: ezetimibe (ZETIA) 10 mg tablet, TK 1 T PO QD, Disp: , Rfl: 3 fluticasone (FLONASE) 50 mcg/actuation nasal spray, , Disp: , Rfl: gabapentin (NEURONTIN) 600 mg tablet, , Disp: , Rfl: glucosam velasquez okf-cyxbuhhcd-I-Mn 547-181-92-3 mg capsule, , Disp: , Rfl: hydroCHLOROthiazide (HYDRODIURIL) 25 mg tablet, TK 1 T PO QD, Disp: , Rfl: 2 levothyroxine (SYNTHROID, LEVOTHROID) 50 mcg tablet, TK 1 T PO QD, Disp: , Rfl: 3 lidocaine (LIDODERM) 5 %, APPLY 1 PATCH TOPICALLY TO THE SKIN DAILY. LEAVE ON MOST PAINFUL AREA FORUP TO 12 HOURS, Disp: , Rfl: metoprolol XL (TOPROL-XL) 100 mg 24 hr tablet, TK 1 T PO D, Disp: , Rfl: 3 montelukast (SINGULAIR) 10 mg tablet, TK 1 T PO D, Disp: , Rfl: 3 MULTIVITAMIN ORAL, Take by mouth, Disp: , Rfl: omega 0-wqd-xyl-fish oil (Fish OiL) 100-160-1,000 mg capsule, Take by mouth, Disp: , Rfl: omeprazole (PriLOSEC) 20 mg capsule, Take 1 capsule (20 mg total) by mouth daily, Disp: , Rfl: ramipriL (ALTACE) 10 mg capsule, Take 1 capsule (10 mg total) by mouth daily, Disp: , Rfl: Savella 25 mg tablet, TAKE 1 TABLET BY MOUTH TWICE DAILY FOR FIBROMYALGIA, Disp: , Rfl: triamcinolone (KENALOG) 0.1 % cream, APPLY TOPICALLY TO THE AFFECTED AREA TWICE DAILY, Disp: , Rfl: TURMERIC ORAL, Take by mouth, Disp: , Rfl: vitamin E (AQUASOL E) 400 unit capsule, , Disp: , Rfl: Review of Systems Constitutional: negative for anorexia, fatigue, night sweats, and weight loss, has exertional dyspnea Eyes: negative Ears, nose, mouth, throat, and face: negative for earaches, epistaxis, gum bleeding, nasal congestion, pain with swallowing, sinus tenderness, and sore throat Respiratory: dyspnea on exertion, no pleurisy, no wheezing, HONG Cardiovascular: negative for chest pain, chest pressure/discomfort, dyspnea, irregular heart beat, lower extremity edema, palpitations, and syncope, mitral and tricuspid regurgitation positive for pulmonary HTN and heart failure Gastrointestinal: negative for abdominal pain, constipation, diarrhea, dyspepsia, dysphagia, jaundice, melena, nausea, and vomiting Genitourinary: negative for hematuria, hesitancy, and nocturia Skin: negative for changed mole, petechiae, pruritus, and rash Breast: negative for breast lump Hematologic/lymphatic: negative for bleeding, lymphadenopathy, petechiae, and prior transfusions Musculoskeletal: back pain, left shoulder pain, no joint swelling, no muscle weakness, no myalgias,and neck pain, history of fibromyalgia, history of rheumatoid fever Neurological: negative for dizziness, headaches, memory problems, peripheral neuropathy, seizures, syncope, tremors, and weakness Behavioral/Psych: negative for anxiety, depression, and insomnia Endocrine: negative for heat intolerance, hot flashes, polyphagia, temperature intolerance, and weight is stable Allergic/Immunologic: negative for hives and urticaria Performance Status: ECOG 1 Objective Vitals BP 136/69 (BP Location: Left arm) Pulse 74 Temp 36.8 ??C (98.3 ??F) (Oral) Resp 18 Wt 95.3 kg (210 lb 3.2 oz) SpO2 98% BMI 31.96 kg/m?? Physical exam: General appearance: appears stated age, cooperative, and no distress Head: Normocephalic, without obvious abnormality Eyes: conjunctivae/corneas clear. PERRL, EOMs intact, anicteric Ears: normal TM's and external ear canals both ears Nose: Nares normal. Septum midline. Mucosa normal. No drainage or sinus tenderness. Throat/Mouth: no mucositis or thrush Neck: no adenopathy, no carotid bruit, and no JVD Back: range of motion normal, symmetric, normal curvature. ROM normal. No CVA tenderness. Lungs: clear to auscultation bilaterally Breasts: normal appearance, no masses or tenderness Heart: regular rate and rhythm, S1, S2 normal, no murmur, click, rub or gallop Abdomen: soft, non-tender; bowel sounds normal; no masses, no organomegaly Pelvic: deferred Extremities: No edema, well perfused Pulses: 2+ and symmetric Skin: Skin color, texture, turgor normal. No rashes or lesions Lymph nodes: Cervical, supraclavicular, and axillary nodes normal. Neurologic: Alert and oriented x4, non-focal Psych: normal Cooperative Lab/Radiology/Diagnostic Review: CBC: Lab Results Component Value Date/Time WBC 4.0 08/27/2023 12:29 PM WBC 4.3 12/11/2022 08:52 AM WBC 7.1 08/29/2018 04:00 PM LABPLAT 175 08/27/2023 12:29 PM LABPLAT 217 12/11/2022 08:52 AM LABPLAT 255 08/29/2018 04:00 PM HGB 11.0 (L) 08/27/2023 12:29 PM HGB 12.2 12/11/2022 08:52 AM HGB 13.0 08/29/2018 04:00 PM HCT 32.6 (L) 08/27/2023 12:29 PM HCT 35.8 12/11/2022 08:52 AM HCT 39.0 08/29/2018 04:00 PM MCV 94.2 08/27/2023 12:29 PM MCV 94.5 12/11/2022 08:52 AM MCV 92 08/29/2018 04:00 PM MCH 31.8 08/27/2023 12:29 PM MCH 32.2 12/11/2022 08:52 AM MCH 30.8 08/29/2018 04:00 PM MCHC 33.7 08/27/2023 12:29 PM MCHC 34.1 12/11/2022 08:52 AM MCHC 33.3 08/29/2018 04:00 PM RDW 15.0 12/11/2022 08:52 AM RDW 15.6 (H) 08/29/2018 04:00 PM RDWCV 16.2 (H) 08/27/2023 12:29 PM RDWSD 55.7 (H) 08/27/2023 12:29 PM MPV 10.6 08/27/2023 12:29 PM MPV 10.3 12/11/2022 08:52 AM NRBC CANCELED 11/21/2020 02:11 PM NRBC CANCELED 11/21/2020 02:11 PM NEUTROABS 1.8 08/27/2023 12:29 PM NEUTROABS 2,000 12/11/2022 08:52 AM NEUTROABS 4.0 08/29/2018 04:00 PM ABSOLBLA CANCELED 11/21/2020 02:11 PM BLASTS CANCELED 11/21/2020 02:11 PM LYMPHOPCT 43.8 08/27/2023 12:29 PM LYMPHOPCT 40.3 12/11/2022 08:52 AM LABEOS 1 08/29/2018 04:00 PM CMP: Lab Results Component Value Date/Time SODIUM 135 08/27/2023 12:29 PM SODIUM 139 12/11/2022 08:52 AM SODIUM 142 08/29/2018 03:47 PM POTASSIUM 3.9 08/27/2023 12:29 PM POTASSIUM 4.0 12/11/2022 08:52 AM CO2 25 08/27/2023 12:29 PM CO2 29 12/11/2022 08:52 AM CO2 26 08/29/2018 03:47 PM BUNSER 14 08/27/2023 12:29 PM BUNSER 22 12/11/2022 08:52 AM BUNSER 22 08/29/2018 03:47 PM GLUCOSE 123 08/27/2023 12:29 PM GLUCOSE 100 (H) 12/11/2022 08:52 AM GLUCOSE 95 08/29/2018 03:47 PM CREATININE 0.80 08/27/2023 12:29 PM CREATININE 0.94 12/11/2022 08:52 AM CREATININE 0.85 08/29/2018 03:47 PM CALCIUM 9.5 08/27/2023 12:29 PM CALCIUM 9.6 12/11/2022 08:52 AM CALCIUM 9.6 08/29/2018 03:47 PM CHLORIDE 96 (L) 08/27/2023 12:29 PM CHLORIDE 99 12/11/2022 08:52 AM CHLORIDE 97 08/29/2018 03:47 PM ALBUMIN 4.5 08/27/2023 12:29 PM ALBUMIN 4.7 12/11/2022 08:52 AM ALBUMIN 4.6 08/29/2018 03:47 PM ALBUMIN 3.5 08/29/2018 03:47 PM AST 18 08/27/2023 12:29 PM AST 17 12/11/2022 08:52 AM AST 14 08/29/2018 03:47 PM ALT 16 08/27/2023 12:29 PM ALT 15 12/11/2022 08:52 AM ALT 19 08/29/2018 03:47 PM ALKPHOS 65 08/27/2023 12:29 PM ALKPHOS 68 12/11/2022 08:52 AM ALKPHOS 60 08/29/2018 03:47 PM BILITOT 0.3 08/27/2023 12:29 PM BILITOT 0.4 12/11/2022 08:52 AM BILITOT 0.2 08/29/2018 03:47 PM PROT 6.5 08/27/2023 12:29 PM ANIONGAP 14 08/27/2023 12:29 PM LDH: Lab Results Component Value Date/Time LDH 191 08/27/2023 12:29 PM LDH 164 12/04/2021 09:24 AM Uric Acid:No results found for: URICACID PT:No results found for: PT PTT:No results found for: APTT Tumor Marker History Latest Ref Rng & Units 12/11/2022 08:52 08/27/2023 12:29 Tumor Markers Beta-2 Microglobulin, Serum 1.00 - 2.50 mg/L 3.94 3.70 Immunoglobulin G 700 - 1,600 mg/dL 369 387 Immunoglobulin A 70 - 400 mg/dL 55 <50 Immunoglobulin M 40 - 230 mg/dL 21 <25 [place]/Lambda light chains free with ratio 0.26 - 1.65 0.26 - 1.65 25.11 20.39 23.67 [place] light chain, free 0.33 - 1.94 mg/dL 0.33 - 1.94 mg/dL 178.3 16.72 18.70 Lambda light chain, free 0.57 - 2.63 mg/dL 7.1 0.82 Protein, sr 6.2 - 8.2 g/dL 6.5 Albumin 3.2 - 5.0 g/dL 4.3 Alpha-1 globulin 0.2 - 0.4 g/dL 0.3 0.3 Alpha-2 globulin 0.5 - 1.0 g/dL 0.9 0.8 Beta-1 globulin 0.3 - 0.6 g/dL 0.4 0.4 Beta-2 globulin 0.2 - 0.6 g/dL 0.3 Gamma globulin 0.5 - 1.7 g/dL 0.5 0.4 Rstr Pk Gamma 0.0 - 0.0 g/dL 0.1 SPEP interp Please see comment Latest Reference Range & Units 08/29/18 15:47 02/27/19 09:42 05/29/19 10:14 09/11/19 10:22 11/21/20 14:11 12/04/21 09:24 12/11/22 08:52 Immunoglobulin G 600 - 1,540 mg/dL 350 (L) 337 (L) 409 (L) 375 (L) 368 (L) 369 (L) Immunoglobulin G, Qn, Serum 700 - 1,600 mg/dL 386 (L) Immunoglobulin A 70 - 320 mg/dL 56 56 (L) 55 (L) 51 (L) 57 (L) 55 (L) Immunoglobulin A, Qn, Serum 64 - 422 mg/dL 52 (L) Immunoglobulin M, Qn, Serum 26 - 217 mg/dL 31 Immunoglobulin M 50 - 300 mg/dL 25 (L) 24 (L) 23 (L) 20 (L) 23 (L) 21 (L) Globulin 2.3 - 3.5 gm/dL 3.3 2.7 Alpha-1 globulin 0.2 - 0.3 g/dL 0.3 0.3 0.3 Alpha-2 globulin 0.5 - 0.9 g/dL 1.2 (H) 0.8 0.9 Beta Globulin 0.7 - 1.3 g/dL 1.2 Beta-1 globulin 0.4 - 0.6 g/dL 0.4 0.4 Beta 2 globulin 0.2 - 0.5 g/dL 0.3 0.3 Gamma globulin 0.8 - 1.7 g/dL 0.6 0.5 (L) 0.5 (L) SPE, interp COMMENT ONLY COMMENT ONLY Abnormal protein band, ur NONE DETECTED g/dL 0.2 (H) 0.2 (H) M-Priyank Not Observed g/dL 0.2 (H) Free Karl[place] Lt Chains,S 3.30 - 19.40 mg/L 90.7 (H) 145.00 ! [place] light chain, free 3.3 - 19.4 mg/L 138.3 (H) 121.8 (H) 121.0 (H) 151.0 (H) 178.3 (H) Lambda light chain, free 5.7 - 26.3 mg/L 7.8 6.6 6.6 8.1 7.1 Free Lambda LC, Quant 5.71 - 26.30 mg/L 6.98 Karl[place]/Lambda Ratio,S 0.26 - 1.65 13.74 (H) 20.77 ! [place]/Lambda light chains free with ratio 0.26 - 1.65 17.73 (H) 18.45 (H) 18.33 (H) 18.64 (H) 25.11(H) (L): Data is abnormally low (H): Data is abnormally high !: Data is abnormal Radiology: None recently last PET CT scan was in 2019. Narrative & Impression Patient Name: RIGOBERTO ELISE Dr: Akbar Pittman Jr, MD D.O.B: 1940 Exam Date: 07/17/19 0000 Age: 78 Sex: Female MR#: [id number] Loc: RADIOLOGY REPORT Order #[id number] PET PET/CT Whole Body-OP Use Only Signed EXAM DESCRIPTION: PET/CT WHOLE BODY-OP USE ONLY REASON FOR STUDY: MGUS versus multiple myeloma abnormal blood work, no previous chemotherapy or radiation, PET-CT for staging and initial treatment strategy. RADIOPHARMACEUTICAL: 11.8 mCi F-18 Fluorodeoxyglucose (FDG) via a left antecubital IV site. TECHNIQUE: The patient's fasting blood glucose level, measured by glucometer before injection of FDG, was 97 mg/dL. After intravenous administration of FDG, noncontrast CT images were obtained for attenuation correction and for fusion with emission PET images to allow for anatomical localization of PET findings. Emission PET images were then obtained. The area imaged spanned the region from just below the skull vertex to the thighs. The uptake time was approximately 60 minutes. COMPARISON: No prior PET-CT. MRI lumbar spine 07/21/2018. FINDINGS: Head: Normal FDG uptake is seen in the included portion of the brain. Neck: Physiologic uptake is present in the paired lymphoid structures. No hypermetabolic lymphadenopathy is identified. Chest: No abnormal FDG activity is seen in the lung parenchyma. There are no suspicious pulmonary nodules. No hypermetabolic lymphadenopathy in the axillae, mediastinum, or ella. There is no pleural or pericardial effusion. Heart size within normal limits. Abdomen and Pelvis: Liver and spleen demonstrate normal activity without focal FDG uptake. Diffuse hepatic steatosis is noted. Gallbladder is unremarkable. Pancreas and both adrenal glands demonstrate normal FDG activity. Normal genitourinary and gastrointestinal activity is seen. There are no hypermetabolic lymph nodes in the abdomen and pelvis. Bones: Low level FDG activity is seen within the osseous structures, without specific abnormal metabolic activity to correspond to the abnormal bone marrow signal as seen in the lumbar spine on the MRI from 07/21/2018. There is a focal site of FDG activity present in the left scapula at the interval between the acromion and coracoid process, there is no associated osseous lesion and therefore this is deemed unlikely to be related to multiple myeloma. There is arthritic activity in the knees and ankles. IMPRESSION: 1. No convincing evidence of FDG avid multiple myeloma. 2. Focal intense activity interposed at the cortical surface between the coracoid process and glenoid of the left scapula with no associated CT abnormality, unlikely to be related to multiple myeloma. Could confirm the absence of an osseous abnormality at this location with an MRI. 3. Only very mild nonfocal FDG activity associated with the heterogeneous marrow in the lumbar spine, without evidence of focal multiple myeloma. THIS IS AN ELECTRONICALLY VERIFIED FINAL REPORT 07/18/2019 10:48 AM - Electronically signed by Sina Thomason M.D. ADDENDUM: This addendum report supersedes the original report dated 01/08/2023. A PET-CT from 07/17/2019 is now available for comparison. The uptake surrounding the left shoulder has slightly decreased with an SUV of 4.6 currently compared to 7.5 previously. This does appear to correspond to the surrounding musculature and is not likely related to myeloma. No lytic lesion identified in the shoulder. The noncalcified 4 mm nodule in the right apex seen on the current study showing no FDG uptake was on the 2019 study indicating long-term stability. The noncalcified 3 mm nodule in the left lower lobe may have been present previously. Continued attention on follow-up imaging recommended. The low-attenuation liver lesion is present in 2020 and shows no abnormal FDG uptake. This is likely a cyst or hemangioma. The uptake in the left maxilla is once again seen likely related to dental disease. Pathology: Assessment/Plan 1) Monoclonal gammopathy of uncertain significance (MGUS) >> Karl[place] Light Chain Multiple Myeloma: this is a misnomer since she has no M-spike and we have yet to obtain a serum immunofixation to detect kappa or lambda restricted paraproteins. She has hypogammaglobulinemia which may predispose her to get sinus and pulmonary infections. Her last PET CT scan did not show any lytic lesions or increased uptake suspicious for multiple myeloma. She had a recent bone marrow aspirate and biopsy thatshowed involvement by plasma cell neoplasm. Her blood count are normal and have been stable. Beta 2 microglobulin = 3.5 and previously higher makes her an early IRSS Stage II. Bone survey on 08/27/23did not show lytic lesions. 2) Immunocompetence testing: not done, ALC - 1.7 done at [facility] on 12/11/22. 3) Acquired hypogammaglobulinemia: IgG, IgA and IgM are all below normal since 2019. On 12/11/22 IgG= 369 mg/dL, IgA = 55 mg/dL and IgM = 21 mg/dL. If patient develops recurrent sino pulmonary infections we may consider IV IgG replacement therapy in the Winter months. Similarly, her ability to mount a protective serological response to vaccinations may be impaired. 4) Health maintenance: vaccinations per PCP, again may not respond to the FLU shot or Covid-19 boosters. Follow up in on 12/17/2023. Plan initiate VR d and if patient able to start on daratummab or isatuximab will add that to the regimen. If she develops toxicity from the bortezomib the proteasome inhibitor will be stopped and she will continue on [address]. My total encounter time on 12/03/2023 was 40 minutes which was spent in the activities documented inthe note. This includes time spent prior to the visit and after the visit in direct care of the patient. This time does not include time spent in any separately reportable services. Catherine Todd M.D., FACP director public policy Section of [facility]; Patient Care Team: Elvis Lopez MD as PCP - General (Family Medicine) Catherine Todd MD as Medical Oncologist/Document Review Attorney (Hematology) documented in this encounter Plan of Treatment Not on file documented as of this encounter Visit Diagnoses Diagnosis Multiple myeloma not having achieved remission (CMS/HCC) (HCC)- Primary Nonfamilial hypogammaglobulinemia (HCC) Pulmonary hypertension (HCC) Other chronic pulmonary heart diseases documented in this encounter Discontinued Medications Medication Sig Discontinue Reason Start Date End Da te amLODIPine (NORVASC) 2.5 mg tablet TK 1 T PO QD 08/06/2018 12/03/2023 cholecalciferol (VITAMIN D-3) 50,000 unit capsule TAKE ONE CAPSULE BY MOUTH EVERY 2 WEEKS 11/18/2021 12/03/2023 aspirin 81 mg tablet Take 1 tablet (81 mg total) by mouth every other day 12/03/2023 vitamin E (AQUASOL E) 400 unit capsule 12/03/2023 documented as of this encounter Historical Medications * This list may reflect changes made after this encounter. metroNIDAZOLE 1 % gel with pump Apply topically added in this encounter Orders Appointment Requests Count Last Ordered Date Fi rst Ordered Date ONCBCN CLINIC APPOINTMENT REQUEST 1 024 documented in this encounter Care Teams Hand Tapper Relationship Specialty Start Date End Date Elvis Lopez MD [address] [facility] [place] [address] PCP - General Family Medicine 02/04/23 Catherine Todd MD [address] DIV IM BONE MARROW TRANSPLANT, [address] [place] [address] Medical Oncologist/Document Review Attorney Hematology 08/27/23 documented as of this encounter
--- OUTSIDE RECORDS SUMMARY | 2024-06-26 01:35 | XMS_ITS | Encounter Summary ---
Author Organization [facility] Address [address] [place] [address] Phone Care Team Providers Care Cable Worker Helper Name Role Phone Elvis Lopez MD Primary Care Provider [phone] Catherine Todd MD Unavailable [phone] Encounter Details Date Type Department Care Team (Late st Contact Info) Description 08/27/2023 12:30 PM WALL TO WALL CARPET INSTALLER Lab [facility] Oncology [address] [place] [phone] Multiple myeloma not having achieved remission (CMS/HCC) (HCC) Social History Tobacco Use Types Packs/Day Years Used Date Smoking Tobacco: Never Smokeless Tobacco: Never Alcohol Use Standard Drinks/Week Comments Never 0 (1 standard drink = 0.6 oz pur e alcohol) AUDIT-C Answer Date Recorded Frequency of Alcohol Consumption Never 08/29/2018 Average Number of Drinks Not on file 019 Frequency of Binge Drinking Not on file 08/19 Personal Safety Answer Date Recorded Getting School Help Needed Not on file 08/16 Comments Unknown Sex and Gender Information Value Date Recorded Sex Assigned at Not on file Legal Sex Female 3:01 AM WALL TO WALL CARPET INSTALLER Gender Identity Female 06/07/2020 11:17 AM WALL TO WALL CARPET INSTALLER Sexual Orientation Straight 06/07/2020 11 :17 AM WALL TO WALL CARPET INSTALLER documented as of this encounter Plan of Treatment Not on file documented as of this encounter Visit Diagnoses Diagnosis Multiple myeloma not having achieved remission (CMS/HCC) (HCC) documented in this encounter Orders Appointment Requests Count Last Ordered Date Fi rst Ordered Date ONCBCN LAB APPOINTMENT 1 08/27/2023 documented in this encounter Care Teams Cable Worker Helper Relationship Specialty Start Date End Date Elvis Lopez MD [facility] [facility] [place] [address] PCP - General Family Medicine 02/04/23 Catherine Todd MD [address] DIV IM BONE MARROW TRANSPLANT, [address] [place] [address] Medical Oncologist/Timber Management Technician Hematology 08/27/23 documented as of this encounter
--- OUTSIDE RECORDS SUMMARY | 2024-06-26 01:35 | XMS_ITS | Encounter Summary ---
Author Organization [facility] Address [address] [facility] [address] [place] [address] Care Team Providers Care Book Canvasser Name Role Phone Yosi Whaley MD Primary Care Provider [phone] Yosi Whaley MD Unavailable Reason for Visit * Cardiology (Routine) - Closed Specialty Diagnoses / Procedures Referred By Contac t Referred To Contact Diagnoses Primary hypertension Other chest pain Nonrheumatic mitral valve regurgitation Pulmonary hypertension (HCC) Procedures Transthoracic Echo Complete W Doppler/CF Syed Almonte MD Phone: tel: fax: External Order Referral ID Status Reason Start Date Expiration Date Visits Re quested Visits Authorized [id number] Closed 07/10/2021 08/09/2022 1 1 Encounter Details Date Type Department Care Team (Latest Contact Info) Description 01/16/2022 11:15 AM CDT Ancillary Procedure [facility] Medical [facility] Cardiology [address] [facility] [address] [place] [address] Primary hypertension; Other chest pain; Nonrheumatic mitral valve regurgitation; Pulmonary hypertension (CMS/HCC) (HCC) Social History Tobacco Use Types Packs/Day Years Used Date Smoking Tobacco: Never Smokeless Tobacco: Never Alcohol Use Standard Drinks/Week Comments Never 0 (1 standard drink = 0.6 oz pur e alcohol) AUDIT-C Answer Date Recorded Frequency of Alcohol Consumption Never 08/29/2018 Average Number of Drinks Not on file 019 Frequency of Binge Drinking Not on file 08/19 Comments Unknown Sex and Gender Information Value Date Recorded Sex Assigned at Not on file Legal Sex Female 3:01 AM DISPLAY DEPARTMENT MANAGER Gender Identity Female 06/07/2020 11:17 AM DISPLAY DEPARTMENT MANAGER Sexual Orientation Straight 06/07/2020 11 :17 AM DISPLAY DEPARTMENT MANAGER documented as of this encounter Plan of Treatment Not on file documented as of this encounter Procedures Procedure Name Priority Date/Time Associated Diagnosis Comments TRANSTHORACIC ECHO (TTE) COMPLETE W DOPPLER/CF Routine 01/16/2022 11:07 AM CDT Primary hypertension Other chest pain Nonrheumatic mitral valve regurgitation Pulmonary hypertension (CMS/HCC) (HCC) documented in this encounter Results * Transthoracic Echo (TTE) Complete W Doppler/CF (01/16/2022 11:07 AM CDT) Anatomical Region Laterality Modality Ultrasound 01/16/2022 11:0 7 AM CDT Narrative 01/16/2022 12:18 PM CDT [facility] Cardiology [address] [facility] [address] [address] [address] [facility] [address], [place] [address] P:[phone] P:[phone] Echocardiographic Report Patient Name: RIGOBERTO ELISE : 1940 Study Date: 01/16/2022 11:07:44 AM Gender: F Tech: Location: [place] Ref.Provider: SYED ALMONTE Height(Cm): 173 BSA: 2.09 Weight(Kg): 95.26 Heart Rate: 61 BP: 163/64 Quality: Good Order Provider: SYED ALMONTE Procedures: Echocardiographic Report: Transthoracic echocardiogram with complete 2D, M-Mode, and color Doppler examination. Indications: Hypertension, Pulmonary Hypertension, and Mitral Regurgitation. Measurements: 2D/M Mode Doppler Measurement Value Normal Range Measurement Value Normal Range EF Mod 65 ??AV Mean PG 3 mmHg EF MM 60 [ 55 - 70 ] % AV Peak Evaristo 0.98 m/s LVIDd MM 5.10 [ 3.90 - 5.30 ] cm AV Peak PG 4 mmHg LVIDs MM 3.45 [ 2.30 - 3.90 ] cm AV VTI 0.24 cm LVPWd MM 1.05 [ 0.60 - 1.00 ] cm LVOT Peak Evaristo 0.82 [ 0.70 - 1.10 ] m/s IVSd MM 1.13 [ 0.60 - 0.90 ] cm LVOT VTI 0.20 cm LA Dimension MM 4.43 [ 2.70 - 3.80 ] cm MV E Peak Evaristo 0.98 [ 0.60 - 1.30 ] m/s AoR Diam MM 3.45 [ 2.60 - 3.70 ] cm MV A Peak Evaristo 0.73 [ 0.40 - 0.80 ] m/s LA Volume Index 27.00 [ 16.00 - 28.00 ] cc/m2 MV Decel Time 246 [ 150 - 200 ] msec ACS MM 2.18 cm PV Peak Evaristo 0.79 [ 0.40 - 0.80 ] m/s TR Peak Evaristo 3.18 [ 0.40 - 0.80 ] m/s TR Peak PG 40 mmHg RVSP 48.00 mmHg E' 0.09 E/E' 11 Findings: Interpretation Site: Exam was interpreted at [facility]. Left Ventricle: Normal left ventricular systolic function. No focal wall motion abnormalities. Normal left ventricular size. Mild concentric left ventricular hypertrophy. There is pseudonormal diastolic dysfunction Grade II. Ejection fraction is measured at 65 %. Right Ventricle: Normal right ventricular size. Normal right ventricular systolic function. Left Atrium: The left atrium is normal in size. Right Atrium: The right atrium is normal in size. Atrial Septum: Normal atrial septum. Mitral Valve: Mitral valve leaflets appear moderately thickened. Moderate mitral annular calcification. Moderate mitral valve regurgitation. Aortic Valve: Normal appearance of the aortic valve. No evidence of hemodynamically significant aortic stenosis by Doppler. Trileaflet aortic valve. No aortic regurgitation. Tricuspid Valve: Normal appearance of the tricuspid valve. Moderate pulmonary hypertension based on right ventricular systolic pressure. Estimated peak RVSP is 48 mmHg. Moderate tricuspid regurgitation. Pulmonic Valve: Pulmonic valve not well visualized. Mild pulmonic regurgitation. Pericardium: Normal pericardium with no significant pericardial effusion. Trivial pericardial effusion. Aorta: Normal aortic root. No aortic root dilation. IVC: The IVC is not well visualized. Conclusions: Normal left ventricular systolic function. No focal wall motion abnormalities. Normal left ventricular size. Mild concentric left ventricular hypertrophy. There is pseudonormal diastolic dysfunction Grade II. Ejection fraction is measured at 65 %. Mitral valve leaflets appear moderately thickened. Moderate mitral annular calcification. Moderate mitral valve regurgitation. Normal appearance of the tricuspid valve. Moderate pulmonary hypertension based on right ventricular systolic pressure. Estimated peak RVSP is 48 mmHg. Moderate tricuspid regurgitation. Normal sinus rhythm. Electronically Signed By: Jeniffer Almonte MD 2022-01-16 12:18:47 CDT Procedure Note Syed Almonte MD - 01/16/2022 [facility] Cardiology [address] [facility] [address] [place] [address] [address] [facility] [address], [place] [address] P:[phone] P:[phone] Echocardiographic Report Patient Name: RIGOBERTO ELISE : 1940 Study Date: 01/16/2022 11:07:44 AM Gender: F Tech: Location: [facility].Provider: SYED ALMONTE Height(Cm): 173 BSA: 2.09 Weight(Kg): 95.26 Heart Rate: 61 BP: 163/64 Quality: Good Order Provider: SYED ALMONTE Procedures: Echocardiographic Report: Transthoracic echocardiogram with complete 2D, M-Mode, and color Dopplerexamination. Indications: Hypertension, Pulmonary Hypertension, and Mitral Regurgitation. Measurements: 2D/M Mode Doppler Measurement Value Normal Range Measurement Value Normal Range EF Mod 65 AV Mean PG 3 mmHg EF MM 60 [ 55 - 70 ] % AV Peak Evaristo 0.98 m/s LVIDd MM 5.10 [ 3.90 - 5.30 ] cm AV Peak PG 4 mmHg LVIDs MM 3.45 [ 2.30 - 3.90 ] cm AV VTI 0.24 cm LVPWd MM 1.05 [ 0.60 - 1.00 ] cm LVOT Peak Evaristo 0.82 [ 0.70 - 1.10 ] m/s IVSd MM 1.13 [ 0.60 - 0.90 ] cm LVOT VTI 0.20 cm LA Dimension MM 4.43 [ 2.70 - 3.80 ] cm MV E Peak Evaristo 0.98 [ 0.60 - 1.30 ]m/s AoR Diam MM 3.45 [ 2.60 - 3.70 ] cm MV A Peak Evaristo 0.73 [ 0.40 - 0.80 ]m/s LA Volume Index 27.00 [ 16.00 - 28.00 ] cc/m2 MV Decel Time 246 [ 150 -200 ] msec ACS MM 2.18 cm PV Peak Evaristo 0.79 [ 0.40 - 0.80 ] m/s TR Peak Evaristo 3.18 [ 0.40 - 0.80 ] m/s TR Peak PG 40 mmHg RVSP 48.00 mmHg E' 0.09 E/E' 11 Findings: Interpretation Site: Exam was interpreted at [facility]. Left Ventricle: Normal left ventricular systolic function. No focal wall motionabnormalities. Normal left ventricular size. Mild concentric left ventricular hypertrophy. Thereis pseudonormal diastolic dysfunction Grade II. Ejection fraction is measuredat 65 %. Right Ventricle: Normal right ventricular size. Normal right ventricular systolicfunction. Left Atrium: The left atrium is normal in size. Right Atrium: The right atrium is normal in size. Atrial Septum: Normal atrial septum. Mitral Valve: Mitral valve leaflets appear moderately thickened. Moderate mitral annularcalcification. Moderate mitral valve regurgitation. Aortic Valve: Normal appearance of the aortic valve. No evidence of hemodynamicallysignificant aortic stenosis by Doppler. Trileaflet aortic valve. No aortic regurgitation. Tricuspid Valve: Normal appearance of the tricuspid valve. Moderate pulmonary hypertensionbased on right ventricular systolic pressure. Estimated peak RVSP is 48 mmHg. Moderatetricuspid regurgitation. Pulmonic Valve: Pulmonic valve not well visualized. Mild pulmonic regurgitation. Pericardium: Normal pericardium with no significant pericardial effusion. Trivialpericardial effusion. Aorta: Normal aortic root. No aortic root dilation. IVC: The IVC is not well visualized. Conclusions: Normal left ventricular systolic function. No focal wall motionabnormalities. Normal left ventricular size. Mild concentric left ventricular hypertrophy. Thereis pseudonormal diastolic dysfunction Grade II. Ejection fraction is measuredat 65 %. Mitral valve leaflets appear moderately thickened. Moderate mitral annularcalcification. Moderate mitral valve regurgitation. Normal appearance of the tricuspid valve. Moderate pulmonary hypertensionbased on right ventricular systolic pressure. Estimated peak RVSP is 48 mmHg. Moderatetricuspid regurgitation. Normal sinus rhythm. Electronically Signed By: Jeniffer Almonte MD 2022-01-16 12:18:47 CDT Syed Almonte MD CV ECHO PROCEDURES Final Result documented in this encounter Visit Diagnoses Diagnosis Primary hypertension Unspecified essential hypertension Other chest pain Nonrheumatic mitral valve regurgitation Pulmonary hypertension (HCC) Other chronic pulmonary heart diseases documented in this encounter Care Teams Book Canvasser Relationship Specialty Start Date End Date Yosi Whaley MD [address] [place] [address] PCP - General 07/14/19 02/03/23 Yosi Whaley MD [address] [place] [address] 07/14/19 02/03/23 documented as of this encounter
--- OUTSIDE RECORDS SUMMARY | 2024-06-26 01:35 | XMS_ITS | Encounter Summary ---
Author Organization [facility] Address [address] [place] [address] Phone Care Team Providers Care Package Dyeing Machine Operator Name Role Phone Elvis Lopez MD Primary Care Provider [phone] Catherine Todd MD Unavailable [phone] Encounter Details Date Type Department Care Team (Late st Contact Info) Description 08/27/2023 Orders Only [facility] Oncology [address] [facility] [address] [place] [phone] Falguni Lomeli RN Social History Tobacco Use Types Packs/Day Years [...] on file Legal Sex Female 3:01 AM TIME CLOCK REPAIRER Gender Identity Female 06/07/2020 11:17 AM TIME CLOCK REPAIRER Sexual Orientation Straight 06/07/2020 11 :17 AM TIME CLOCK REPAIRER documented as of this encounter Plan of Treatment Not on file documented as of this encounter Visit Diagnoses Not on filedocumented in this encounter Care Teams Package Dyeing Machine Operator Relationship Specialty Start Date End Date Elvis Lopez MD [address] [place] [address] [place] [address] PCP - General Family Medicine 02/04/23 Catherine Todd MD [address] IM BONE MARROW TRANSPLANT, [address] [place] [address] Medical Oncologist/Legal Records Clerk Hematology 08/27/23 documented as of this encounter
--- OUTSIDE RECORDS SUMMARY | 2024-06-26 01:35 | XMS_ITS | Encounter Summary ---
Author Organization [facility] Address [address] [place] [address] Care Team Providers Care Newscast Director Name Role Phone Yosi Whaley MD Primary Care Provider [phone] Yosi Whaley MD Unavailable Reason for Visit * Reason Comments Follow-up 6 mo f/u and echo sa Hypertension Other chest pain Encounter Details Date Type Department Care Team (Latest Contact Info) Description 01/16/2022 1:00 PM CDT Office Visit [facility] Cardiology [address] [place] [address] Syed Almonte MD [address] [facility] [address] [place] [address] Nonrheumatic mitral valve regurgitation (Primary Dx); Pulmonary hypertension (CMS/HCC) (HCC); Nonrheumatic tricuspid valve regurgitation; Primary hypertension; Hypercholesterolemia Social History Tobacco Use Types Packs/Day Years [...] on file Legal Sex Female 3:01 AM [employer] Gender Identity Female 06/07/2020 11:17 AM [employer] Sexual Orientation Straight 06/07/2020 11 :17 AM P[employer] SHE[employer] documented as of this encounter Last Filed Vital Signs Vital Sign Reading Time Taken Comments Blood Pressure 122/66 01/16/2022 12:11 PM CDT Pulse 62 01/16/2022 12:11 PM CDT Temperature - - Respiratory Rate - - Oxygen Saturation 96% 01/16/2022 12:11 PM CDT Inhaled Oxygen Concentration - - Weight 97.3 kg (214 lb 8 oz) 01/16/2022 12:11 PM CDT Height 172.7 cm (5' 8 ) 01/16/2022 12:11 PM CDT Body Mass Index 32.61 01/16/2022 12:11 PM CDT documented in this encounter Progress Notes * Syed Almonte MD - 01/16/2022 1:00 PM CDT [facility] DATE OF VISIT: 01/16/2022 CHIEF COMPLAINT Chief Complaint Patient presents with ??? Follow-up 6 mo f/u and echo same day ??? Hypertension ??? Other chest pain ASSESSMENT Diagnoses and all orders for this visit: Nonrheumatic mitral valve regurgitation (Primary) Pulmonary hypertension (CMS/HCC) (HCC) Nonrheumatic tricuspid valve regurgitation Primary hypertension Hypercholesterolemia PLAN/RECOMMENDATIONS 1. CP resolved, previously atypical.Previously described as nonexertional, fairly constant slightlyimproved reclining in chair, sometimes in R breast with zapping pains. -Normal Lexiscan 2018, priorEKG unremarkable. - She will monitor for progression or other associated symptoms and notify the office immediately. If new concern repeat ischemic evaluation was discussed but not felt change her management at present. 2. Lipids personally reviewed 01/16/22 LDL 119, not ideal goal LDL<100 but fair. Continue lifestyle modification. -Cont Zetia 10mg daily, not expected to tolerate statin therapy nor clear indication at this time. 3. Preserved EF, NYHA class II-III symptoms. CHF counseling performed. Follow daily weight, less than 2 g daily sodium intake, medication compliance. Call w/ wt gain >3lb in 24 hrs or worsening edema and/or VALERO. -Monitor MR/TR. She is not decompensated. She is to continue treatment with CPAP for HONG. -05/2020 and 01/16/22 2D echo EF 74%, 65% respectively normal wall motion moderate pulmonary hypertension RVSP 48 mm Hg moderate MR, mod TR no sig change overall comparing the two. We discussed this at length. No change which is good news. Patient clinically stable without new symptoms. Will discussrepeat echocardiogram at next visit or sooner depending on symptom complex. All questions answered to their satisfaction. 4. BP controlled goal <140/90mmHg. Monitor BP on routine basis. Call with readings. Continue consistent cardiovascular exercise, weight loss, medication compliance, and low-sodium diet. -Continue Amlodipine 2.5 mg daily, HCTZ 25mg daily, Toprol XL 100mg daily, Quinapril 20mg BID. 5. Lifestyle modification counseling performed. Weight loss, exercise, reduction in caloric intake. Over 50% of this visit counseling edema, pulmonary HTN, HTN, lipids, medications, lifestyle modification. Follow up in the office in 1 year or sooner as needed. Thank you for allowing me the privilege of participating in the care this very pleasant patient. Please do not hesitate to contact me with any additional questions or concerns. HPI Sloane Elise is a 81 y.o. female with a PMHx of bone marrow aplasia, MGUS, arthritis, chronic pain , fibromyalgia, HTN, dyslipidemia, HONG on CPAP, reported Rheumatic fever as a child, transient remote diagnosis of MVP seen in very kind referral by Dr. Whaley for my opinion regarding abnormal echocardiogram with mitral regurgitation and pulmonary hypertension. 06/07/20 Initial visit: Notes 2-3 week development of edema in feet/ankles bilaterally she initially thought related to prednisone so she stopped. She was taking prednisone for arthritis (?OA) which is the only thing that helps for pain in feet/knees/back/ankles. She was sent to the ER for edema negative w/u for DVT. Has been taking HCTZ for years and was started on Spironolactone 25mg daily for one week with no improvement in weight or edema. Edema is a new issue, weight has gone up significantly past 6 months or so but also not as active either. occ mild SOB but she attributed to lack of activity and deconditioning. She feels ever since Echo done she is more SOB and thinks all in her head. She related being told she had MVP decades ago, was given a medication for this then taken off by PCP. At time of diagnosis, was having fluttering in chest, she cannot recall medication. In August 2019 high free Hinton LC, K/L ratio 20.77, B2 microglobulin, low IgM, IgA, IgG followed by Dr. Pittman. Currently has a great deal of pain in feet and legs and makes it very difficult to walk. 01/02/21 Has been going downhill since Jun 2020 COVID. Has a lot of athritis pain, fibromyalgia, feels poorly, shingles reawakened post COVID now very sensitive skin, has zapping shooting pains she thinks has neuralgias as well and in various places. Seeing PCP and Pain management. Saw Neurosurgery,told nothing they can do. Pain meds not helping. Lately more heaviness central chest like a weight,past couple of weeks and is more or less constant sometimes less noticeable no clear aggravating orrelieving factors. No SOB normally at rest but can get SOB with activity but back pain limits her before anything else, can only stand 2 min at a time. 07/10/21 Doing ok overall, no CP or palps. Stable as far as heart goes. Fibromyalgia pain an issue still varies in intensity. No syncope or falls since last visit. Remains on Quinapril, HCTZ, Zetia Toprol XL, Amlodipine, ASA. Wearing CPAP. 01/16/22 MEDICAL HISTORY Past Medical History: Diagnosis Date ??? Age-related nuclear cataract Senile nuclear cataract - (Added by TW Conv) ??? Anemia ??? 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 Chronic kidney disease ??? Heart murmur ??? Hypercholesteremia ??? Hypertension ??? Multiple myeloma (HCC) ??? 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 Sleep apnea ??? Thyroid disease Social History Tobacco Use ??? Smoking status: Never Smoker ??? Smokeless tobacco: Never Used Vaping Use ??? Vaping Use: Never used Substance Use Topics ??? Alcohol use: Never ??? Drug use: Never Family History Problem Relation Age of Onset ??? Thyroid disease Mother ??? Heart failure Father ??? Heart disease Father ??? Heart disease Sister ??? Other (enlarged heart) Sister ??? Lung cancer Brother ??? Heart failure Brother MEDICATIONS HOME MEDICATIONS : acetaminophen ER (Tylenol Arthritis Pain) 650 mg 8 hr tablet amLODIPine (NORVASC) 2.5 mg tablet aspirin 81 mg tablet cetirizine (ZyrTEC) 10 mg tablet cholecalciferol (VITAMIN D-3) 50,000 unit capsule docosahexanoic acid/epa (FISH OIL ORAL) eszopiclone (LUNESTA) 3 mg tablet ezetimibe (ZETIA) 10 mg tablet fluticasone (FLONASE) 50 mcg/actuation nasal spray gabapentin (NEURONTIN) 600 mg tablet glucosam velasquez lql-chcumohtm-A-Mn 114-753-30-3 mg capsule glucosam velasquez tbk-dhefqeado-C-Mn 260-498-06-3 mg capsule hydroCHLOROthiazide (HYDRODIURIL) 25 mg tablet levothyroxine (SYNTHROID, LEVOTHROID) 50 mcg tablet magnesium oxide 400 mg magnesium tablet metoprolol XL (TOPROL-XL) 100 mg 24 hr tablet metroNIDAZOLE 1 % gel with pump montelukast (SINGULAIR) 10 mg tablet MULTIVITAMIN ORAL naproxen (ANAPROX,ALEVE) 220 mg tablet omega 6-xyk-tix-fish oil (Fish OiL) 100-160-1,000 mg capsule omeprazole (PriLOSEC) 20 mg capsule quinapril (ACCUPRIL) 20 mg tablet TURMERIC ORAL vitamin E (AQUASOL E) 400 unit capsule clobetasol (TEMOVATE) 0.05 % ointment diphenhydrAMINE (BENADRYL) 25 mg capsule ergocalciferol (VITAMIN D) 50,000 unit capsule naltrexone (LOW DOSE) 4.5 mg capsule traMADoL (ULTRAM) 50 mg tablet ALLERGIES Allergies Allergen Reactions ??? Tramadol-Acetaminophen Swelling ??? Adoxa [Doxycycline Monohydrate] Unknown ??? Bextra [Valdecoxib] Unknown ??? Bion Tears (Pf) [Dextran 70-Hypromellose (Pf)] Unknown ??? Bromfed [Brompheniramine-Phenylephrine] Unknown ??? Clarinex [Desloratadine] Unknown ??? Codeine ??? Demerol [Meperidine] Unknown ??? Diclofenac Unknown ??? Duloxetine Unknown ??? Entex [Phenylephrine-Guaifenesin] Unknown ??? Hismanal Unknown ??? Indomethacin Unknown ??? Levofloxacin ??? Loratadine Unknown ??? Midol [Acetaminophen-Pamabrom] Unknown ??? Nabumetone ??? Nickel ??? Nyquil Unknown ??? Piroxicam ??? Prednisone ??? Propoxyphene-Acetaminophen ??? Refresh Tears [Carboxymethylcellulose Sodium] Unknown ??? Rondec [Carbinoxamine-Pseudoephedrine] Unknown ??? Rozerem [Ramelteon] Unknown ??? Septra [Sulfamethoxazole-Trimethoprim] Unknown ??? Trazodone ??? Trinalin Unknown ??? Ultracef Unknown ??? Alprazolam Other (See comments) Sleeps all day ??? Amitriptyline Other (See comments) Sleeps all day ??? Extendryl [Fhmysqtkvmidsenf-Ri-Sligjbteyk] Other (See comments) Hard to awaken ??? Seldane Other (See comments) Upset stomach REVIEW OF SYSTEMS Review of Systems Constitutional: Positive for malaise/fatigue and weight gain. Negative for decreased appetite, diaphoresis, fever, night sweats and weight loss. HENT: Negative for hearing loss and nosebleeds. Eyes: Negative for blurred vision and pain. Cardiovascular: Positive for leg swelling. Negative for chest pain, claudication, dyspnea on exertion, irregular heartbeat, near-syncope, orthopnea, palpitations and syncope. Respiratory: Negative for cough, hemoptysis, shortness of breath, snoring and wheezing. Endocrine: Negative for cold intolerance and heat intolerance. Hematologic/Lymphatic: Negative for bleeding problem. Does not bruise/bleed easily. Skin: Negative for color change, itching, rash and suspicious lesions. Musculoskeletal: Positive for arthritis, back pain, joint pain and stiffness. Negative for falls, muscle weakness and myalgias. Gastrointestinal: Negative for abdominal pain, heartburn, hematemesis, melena and nausea. Genitourinary: Negative for dysuria, hematuria and nocturia. Neurological: Negative for excessive daytime sleepiness, dizziness, focal weakness, headaches, light-headedness, loss of balance and weakness. Psychiatric/Behavioral: Negative for altered mental status, depression and memory loss. The patientis not nervous/anxious. Allergic/Immunologic: Negative for environmental allergies. PHYSICAL EXAM Vitals BP 122/66 (BP Location: Right arm, Patient Position: Sitting) Pulse 62 Ht 172.7 cm (5' 8 ) Wt 97.3 kg (214 lb 8 oz) SpO2 96% BMI 32.61 kg/m?? Weight: 97.3 kg (214 lb 8 oz) Height: 172.7 cm (5' 8 ) Body mass index is 32.61 kg/m??. Physical Exam Constitutional: General: She is not in acute distress. Appearance: She is well-developed. She is not diaphoretic. HENT: Head: Normocephalic and atraumatic. Right Ear: External ear normal. Left Ear: External ear normal. Nose: Nose normal. Mouth/Throat: Dentition: Normal dentition. Eyes: General: Lids are normal. No scleral icterus. Conjunctiva/sclera: Conjunctivae normal. Neck: Thyroid: No thyromegaly. Vascular: Normal carotid pulses. No carotid bruit, hepatojugular reflux or JVD. Trachea: No tracheal deviation. Cardiovascular: Rate and Rhythm: Normal rate and regular rhythm. Pulses: Normal pulses and intact distal pulses. Heart sounds: Normal heart sounds, S1 normal and S2 normal. Heart sounds not distant. No murmur heard. No friction rub. No gallop. No S3 or S4 sounds. Pulmonary: Effort: Pulmonary effort is normal. No respiratory distress. Breath sounds: Normal breath sounds. No wheezing or rales. Chest: Chest wall: No tenderness. Abdominal: General: Bowel sounds are normal. There is no distension. Palpations: Abdomen is soft. There is no mass. Tenderness: There is no abdominal tenderness. There is no guarding or rebound. Comments: obese Musculoskeletal: General: No tenderness or deformity. Normal range of motion. Cervical back: Normal range of motion and neck supple. Comments: 1- 2+ bilateral equal pitting lower extremity edema up to the knees Lymphadenopathy: Cervical: No cervical adenopathy. Skin: General: Skin is warm and dry. Coloration: Skin is not pale. Findings: No ecchymosis, erythema, petechiae or rash. Nails: There is no clubbing. Neurological: Mental Status: She is alert and oriented to person, place, and time. Cranial Nerves: No cranial nerve deficit. Motor: No abnormal muscle tone. Coordination: Coordination normal. Psychiatric: Speech: Speech normal. Behavior: Behavior normal. Behavior is cooperative. Judgment: Judgment normal. LABS AND OTHER DIAGNOSTIC TESTS Lab Results Component Value Date WBC 4.0 12/04/2021 HGB 12.1 12/04/2021 HCT 38.1 12/04/2021 CREATININE 0.84 12/04/2021 POTASSIUM 3.8 12/04/2021 BUNSER 18 12/04/2021 Results for orders placed or performed in visit on 01/02/21 POCT lipid panel Result Value Ref Range Cholesterol, POC 188 mg/dL HDL, POC 25 mg/dL Triglycerides, POC 229 mg/dL LDL, Direct, POC 117 mg/dL Chol/HDL Ratio, POC 7.5 Non-HDL Cholesterol, POC 163 mg/dL Cholesterol Total, POC 188 mg/dL 03/28/19 Lexiscan: Conclusions: Negative EKG portion of stress test. Global left ventricular function is normal. Left ventricular ejection fraction is 74 %. Myocardial perfusion imaging is normal. 05/28/20 2D Echo: Conclusions: Normal left ventricular systolic function. No focal wall motion abnormalities. Normal left ventricular size. Mild concentric left ventricular hypertrophy. Impaired diastolic relaxation Grade I. Ejection fraction is visually estimated at 70-75 %. Ejection fraction is measured at 74 %. There is mild enlargement of left atrium. Mitral valve leaflets appear moderately thickened. Moderate mitral valve regurgitation. Moderate pulmonary hypertension based on right ventricular systolic pressure. Estimated peak RVSP is 48 mmHg. Moderate tricuspid regurgitation. Mild pulmonic regurgitation. Normal sinus rhythm. 01/16/22 2D Echo: Conclusions: Normal left ventricular systolic function. No [...] mmHg. Moderate tricuspid regurgitation. Normal sinus rhythm. Personally reviewed and analyzed EKG, electronic medical record, and bloodwork/lipids. Jeniffer Almonte MD, [facility] This note is dictated and transcribed using [employer] Direct Software. [employer] Executive variancesmay occur. Despite proofreading, typographical errors may occur. documented in this encounter Plan of Treatment Not on file documented as of this encounter Procedures Procedure Name Priority Date/Time Associated Diagnosis Comments POCT LIPID PANEL Routine 01/16/2022 12:3 3 PM CDT Hypercholesterolemia documented in this encounter Results * POCT lipid panel (01/16/2022 12:33 PM CDT) Cholesterol, POC 210 mg/dL Comment:GLU = 112 HDL, POC 37 mg/dL Triglycerides, POC 269 mg/dL LDL Cholesterol POC 119 mg/dL Chol/HDL Ratio, POC 5.7 Non-HDL Cholesterol, POC 173 mg/dL Cholesterol Total, POC 210 mg/dL Capillary blood 01/16/2022 1 2:33 PM CDT Syed Almonte MD POINT OF CARE TEST ORDER MAHAD Final Result documented in this encounter Visit Diagnoses Diagnosis Nonrheumatic mitral valve regurgitation- Primary Pulmonary hypertension (HCC) Other chronic pulmonary heart diseases Nonrheumatic tricuspid valve regurgitation Primary hypertension Unspecified essential hypertension Hypercholesterolemia Pure hypercholesterolemia documented in this encounter Historical Medications * This list may reflect changes made after this encounter. acetaminophen ER (Tylenol Arthritis Pain) 650 mg 8 hr tablet Take 1 tablet (650 mg total) by mouth every 8 (eight) hours as needed for pain cetirizine (ZyrTEC) 10 mg tablet Take 10 mg by mouth daily 12/25/2022 added in this encounter Care Teams Newscast Director Relationship Specialty Start Date End Date Yosi Whaley MD [address] [place] [id number] PCP - General 07/14/19 02/03/23 Yosi Whaley MD [address] [place] [id number] 07/14/19 02/03/23 documented as of this encounter
--- OUTSIDE RECORDS SUMMARY | 2024-06-26 01:35 | XMS_ITS | Encounter Summary ---
Author Organization [facility] Healthcare Address [address] [place] [address] Care Team Providers Care Yard Rigger Name Role Phone Elvis Lopez MD Primary Care Provider [phone] Catherine Todd MD Unavailable [phone] Encounter Details Date Type Department Care Team (Late st Contact Info) Description 08/27/2023 12:45 PM AUTOMOTIVE LOT ATTENDANT Lab [facility] Lab [address] [place] [id number] Multiple myeloma not having achieved remission (CMS/HCC) [...] on file Legal Sex Female 3:01 AM AUTOMOTIVE LOT ATTENDANT Gender Identity Female 06/07/2020 11:17 AM AUTOMOTIVE LOT ATTENDANT Sexual Orientation Straight 06/07/2020 11 :17 AM AUTOMOTIVE LOT ATTENDANT documented as of this encounter Plan of Treatment Not on file documented as of this encounter Procedures Procedure Name Priority Date/Time Associated Diagnosis Comments IMMUNOTYPING Routine 08/27/2023 12:29 PM AUTOMOTIVE LOT ATTENDANT Multiple myeloma not having achieved remission (CMS/HCC) (HCC) EGFR Routine 08/27/2023 12:29 PM AUTOMOTIVE LOT ATTENDANT Multiple myeloma not having achieved remission (CMS/HCC) (HCC) DIFFERENTIAL AUTO Routine 08/27/2023 12: 29 PM AUTOMOTIVE LOT ATTENDANT Multiple myeloma not having achieved remission (CMS/HCC) (HCC) IMMUNOGLOBULIN FREE LIGHT CHAINS (FLC) NEW Routine 08/27/2023 12:29 PM AUTOMOTIVE LOT ATTENDANT Multiple myeloma not having achieved remission (CMS/HCC) (HCC) IMMUNOGLOBULIN FREE LIGHT CHAINS Routine 08/27/2023 12:29 PM AUTOMOTIVE LOT ATTENDANT Multiple myeloma not having achieved remission (CMS/HCC) (HCC) CBC WITH AUTO DIFFERENTIAL Routine 08/27/2023 12:29 PM AUTOMOTIVE LOT ATTENDANT Multiple myeloma not having achieved remission (CMS/HCC) (HCC) PROTEIN ELECTROPHORESIS, WITH REFLEX, SERUM Routine 08/27/2023 12:29 PM AUTOMOTIVE LOT ATTENDANT Multiple myeloma not having achieved remission (CMS/HCC) (HCC) LACTATE DEHYDROGENASE Routine 08/27/2023 12:29 PM AUTOMOTIVE LOT ATTENDANT Multiple myeloma not having achieved remission (CMS/HCC) (HCC) IGA Routine 08/27/2023 12:29 PM AUTOMOTIVE LOT ATTENDANT Multiple myeloma not having achieved remission (CMS/HCC) (HCC) IGM Routine 08/27/2023 12:29 PM AUTOMOTIVE LOT ATTENDANT Multiple myeloma not having achieved remission (CMS/HCC) (HCC) IGG Routine 08/27/2023 12:29 PM AUTOMOTIVE LOT ATTENDANT Multiple myeloma not having achieved remission (CMS/HCC) (HCC) BETA 2 MICROGLOBULIN SERUM Routine 08/27/2023 12:29 PM AUTOMOTIVE LOT ATTENDANT Multiple myeloma not having achieved remission (CMS/HCC) (HCC) COMPREHENSIVE METABOLIC PANEL Routine 08/27/2023 12:29 PM AUTOMOTIVE LOT ATTENDANT Multiple myeloma not having achieved remission (CMS/HCC) (HCC) documented in this encounter Results * (ABNORMAL) Immunoglobulin Free Light Chains (FLC) New (08/27/2023 12:29 PM AUTOMOTIVE LOT ATTENDANT) Witherbee/Lambda ratio [facility] 23.67(H) 0.26 - 1.65 Comment: Interpretive Data The Binding Site FreeLite assay procedure was used. Results from different manufacturers or methods may not be comparable. Serial testing should be performed using the same methods and instrumentation. Current Interpretive Data was last revised on 2023. Testing performed by: [facility], [address] [place]., [address] Witherbee free light chain [facility] 18.70(H) 0.33 - 1.94 mg/dL [facility] Comment: Interpretive Data The Binding Site FreeLite assay procedure was used. Results from different manufacturers or methods may not be comparable. Serial testing should be performed using the same methods and instrumentation. Current Interpretive Data was last revised on 2023. Testing performed by: [facility], [address] [place]., [address] Lambda free light chain BJH 0.79 0.57 - 2.63 mg/dL [facility] Comment: Interpretive Data The Binding Site FreeLite assay procedure was used. Results from different manufacturers or methods may not be comparable. Serial testing should be performed using the same methods and instrumentation. Current Interpretive Data was last revised on 2023. Testing performed by: [facility], [address] [place]., [address] Blood 08/27/2023 12:2 9 PM AUTOMOTIVE LOT ATTENDANT 08/27/2023 3:03 PM AUTOMOTIVE LOT ATTENDANT Narrative A[facility]LIO - 08/30/2023 3:08 PM CDT The method for this assay was changed on August 18, 2023. For a period of three months the new assay results will be reported alongside results from the old assay method. For patients being monitored, the new results should be interpreted in the context of any changes in the old results. us Catherine Todd MD LAB BLOOD ORDERABLES Final Result [facility] [address] [facility] Department [place] [address] * eGFR (08/27/2023 12:29 PM AUTOMOTIVE LOT ATTENDANT) [facility] eGFR 74 mL/min/1. 73 m2 Comment: Interpretive Data Reference Interval Normal ?>/= 90 mL/min/1.73m2 Mildly decreased* ? 60 - 89 mL/min/1.73m2 Mildly to moderately decreased ?45 - 59 mL/min/1.73m2 Moderately to severely decreased ??30 - 44 mL/min/1.73m2 Severely decreased ?15 - 29 mL/min/1.73m2 Kidney Failure ?< 15 ??mL/min/1.73m2 *Relative to young adult level Estimated glomerular filtration rate is determined by the 2020 CKD-EPI equation recommended by the National Kidney Foundation (A Unifying Approach to GFR Estimation: Recommendations of the NKF-ASK Task Force on Reassessing the Inclusion of Race in Diagnosing Kidney Disease, JASN 2020). The CKD-EPI equation should not be used for patients with unstable renal function and has not been validated in children and those over 70. Current interpretive data was last reviewed 2021. Testing performed by: [facility], [address] [place] [address]., [address] Blood 08/27/2023 12:2 9 PM AUTOMOTIVE LOT ATTENDANT 08/27/2023 12:32 PM AUTOMOTIVE LOT ATTENDANT us Catherine Todd MD LAB BLOOD ORDERABLES Final Result [facility] [address] [facility] Department [place] [address] * Differential, auto (08/27/2023 12:29 PM AUTOMOTIVE LOT ATTENDANT) [facility] Neutrophil abs 1.8 1.5 - 6.5 K/cumm Comment:Testing performed by : [facility], [address] [place] [address], [place]., [address] Imm gran abs 0.0 0.0 - 0.1 K/cumm [facility] Comment:Testing performed by : [facility], [address] [place] [address], [place]., [address] Lymphocyte abs 1.8 0.8 - 3.3 K/cumm [facility] Comment:Testing performed by : [address] [address] Monocyte abs 0.4 0.2 - 0.8 K/cumm [facility] Comment:Testing performed by : [address], [place]., [address] Eosinophil abs 0.1 0.0 - 0.5 K/cumm [facility] Comment:Testing performed by : [address] [address] Basophil abs 0.0 0.0 - 0.1 K/cumm [facility] Comment:Testing performed by : [address] [address] Neutrophil pct 43.8 % [facility] Comment: Interpretive Data Percent cell count reference ranges are not reported, since discordance with absolute values may lead to misinterpretation of CBC data. Current Interpretive Data was last revised on 2017. Testing performed by: [address] [address] Imm gran pct 0.2 % [facility] Comment: Interpretive Data Percent cell count reference ranges are not reported, since discordance with absolute values may lead to misinterpretation of CBC data. Current Interpretive Data was last revised on 2017. Testing performed by: [address] [address] Lymphocyte pct 43.8 % [facility] Comment: Interpretive Data Percent cell count reference ranges are not reported, since discordance with absolute values may lead to misinterpretation of CBC data. Current Interpretive Data was last revised on 2017. Testing performed by: [address] [address] Monocyte pct 9.5 % [facility] Comment: Interpretive Data Percent cell count reference ranges are not reported, since discordance with absolute values may lead to misinterpretation of CBC data. Current Interpretive Data was last revised on 2017. Testing performed by: [address] [address] Eosinophil pct 2.5 % [facility] Comment: Interpretive Data Percent cell count reference ranges are not reported, since discordance with absolute values may lead to misinterpretation of CBC data. Current Interpretive Data was last revised on 2017. Testing performed by: [address] [address] Basophil pct 0.2 % [facility] Comment: Interpretive Data Percent cell count reference ranges are not reported, since discordance with absolute values may lead to misinterpretation of CBC data. Current Interpretive Data was last revised on 2017. Testing performed by: [address] [address] Blood 08/27/2023 12:2 9 PM AUTOMOTIVE LOT ATTENDANT 08/27/2023 12:32 PM AUTOMOTIVE LOT ATTENDANT Catherine Todd MD LAB BLOOD ORDERABLES Final Result Performing Organization Address City/[facility]/ZIP Co de Phone Number [address] Department [place] [address] * (ABNORMAL) Beta 2 microglobulin, serum (08/27/2023 12:29 PM AUTOMOTIVE LOT ATTENDANT) Beta 2 Microglobulin, Serum 3.70(H) 1.00 - 2.50 mg/L Comment: Interpretive Data The Felisa Beta-2 microglobulin assay procedure was used. Results from different manufacturers or methods may not be comparable. Serial testing should be performed using the same method. Testing performed by: [address] [address] Blood 08/27/2023 12:2 9 PM AUTOMOTIVE LOT ATTENDANT 08/27/2023 1:43 PM AUTOMOTIVE LOT ATTENDANT Catherine Todd MD LAB BLOOD ORDERABLES Final Result Performing Organization Address City/[facility]/ZIP Co de Phone Number AUREL[facility] [address] Department [place] [address] * (ABNORMAL) CBC with auto differential (08/27/2023 12:29 PM AUTOMOTIVE LOT ATTENDANT) [facility] WBC 4.0 3.8 - 9.9 K/cumm Comment:Testing performed by : [address] [address] Hgb 11.0(L) 11.9 - 15.5 g/dL [facility] Comment:Testing performed by : [address] [address] Hct 32.6(L) 35.6 - 45.5 % [facility] Comment:Testing performed by : [address] [address] Plt 175 150 - 400 K/cumm [facility] Comment:Testing performed by : [address] [address] MPV 10.6 9.1 - 12.3 fL [facility] Comment:Testing performed by : [address], [address] RBC 3.46(L) 3.90 - 5.20 M/cumm [facility] Comment:Testing performed by : [address] [address] MCV 94.2 81.3 - 96.4 fL [facility] Comment:Testing performed by : [address] [address] MCH 31.8 27.1 - 33.3 pg [facility] Comment:Testing performed by : [address] [address] MCHC 33.7 32.3 - 35.7 g/dL [facility] Comment:Testing performed by : [address] [address] RDW CV 16.2(H) 11.1 - 14.9 % [facility] Comment:Testing performed by : [address], [address] RDW SD 55.7(H) 35.7 - 48.1 fL [facility] Comment:Testing performed by : [address] [address] NRBC abs 0.00 0.00 - 0.01 K/cumm [facility] Comment:Testing performed by : [address] [address] Blood 08/27/2023 12:2 9 PM AUTOMOTIVE LOT ATTENDANT 08/27/2023 12:32 PM AUTOMOTIVE LOT ATTENDANT Catherine Todd MD LAB BLOOD ORDERABLES Final Result [facility] [address] [facility] Department [place] [address] * (ABNORMAL) Comprehensive metabolic panel (08/27/2023 12:29 PM AUTOMOTIVE LOT ATTENDANT) Sodium 135 135 - 145 mmol/L Comment:Testing performed by : [address] [address] Potassium, pl 3.9 3.3 - 4.9 mmol/L [facility] Comment:Testing performed by : [address] [address] Chloride 96(L) 97 - 110 mmol/L [facility] Comment:Testing performed by : [address] [address] CO2 25 22 - 32 mmol/L [facility] Comment:Testing performed by : [address] [address] Anion gap 14 2 - 15 mmol/L [facility] Comment:Testing performed by : [address] [address] BUN 14 6 - 25 mg/dL [facility] Comment:Testing performed by : [address] [address] Creatinine 0.80 0.60 - 1.10 mg/dL [facility] Comment:Testing performed by : [address] [address] Glucose 123 70 - 199 mg/dL [facility] Comment: Interpretive Data Fasting glucose >/= 126 mg/dl is diagnostic for diabetes. ?? Fasting is defined as no caloric intake for at least 8 hours. Fasting glucose between 100 mg/dl to 125 mg/dl is diagnostic of prediabetes. In a patient with classic symptoms of hyperglycemia or hyperglycemic crisis, a random glucose >/= 200 mg/dl is diagnostic for diabetes. In the absence of unequivocal hyperglycemia, results should be confirmed by repeat testing. The classification and Diagnosis of Diabetes Diabetes Care 2021; 46: S19-S40. Current interpretive data was last revised 2022. Testing performed by: [address] [address] Calcium 9.5 8.5 - 10.3 mg/dL [facility] Comment:Testing performed by : [address] [address] Bilirubin, total 0.3 0.1 - 1.2 mg/dL [facility] Comment:Testing performed by : [address] [address] Protein, pl 6.5 6.5 - 8.5 g/dL [facility] Comment:Testing performed by : [address] [address] Albumin 4.5 3.5 - 5.0 g/dL [facility] Comment:Testing performed by : [address] [address] Alk phos 65 40 - 130 Units/L [facility] Comment:Testing performed by : [address] [address] ALT 16 7 - 45 Units/L [facility] Comment:Testing performed by : [address] [address] AST 18 10 - 45 Units/L [facility] Comment:Testing performed by : [address] [address] Blood 08/27/2023 12:2 9 PM AUTOMOTIVE LOT ATTENDANT 08/27/2023 12:32 PM AUTOMOTIVE LOT ATTENDANT us Catherine Todd MD LAB BLOOD ORDERABLES Final Result [facility] [address] [facility] Department of Laboratories [place], [place] [phone] * (ABNORMAL) IgA (08/27/2023 12:29 PM AUTOMOTIVE LOT ATTENDANT) Pathologist [facility] Immunoglobulin A <50(L) 70 - 400 mg/dL Blood 08/27/2023 12:2 9 PM AUTOMOTIVE LOT ATTENDANT 08/27/2023 2:26 PM AUTOMOTIVE LOT ATTENDANT Catherine Todd MD LAB BLOOD ORDERABLES Final Result OLIVIA[address] [employer] [place] [address] * (ABNORMAL) IgG (08/27/2023 12:29 PM AUTOMOTIVE LOT ATTENDANT) [facility] Immunoglobulin G 387(L) 700 - 1,600 mg/dL Blood 08/27/2023 12:2 9 PM AUTOMOTIVE LOT ATTENDANT 08/27/2023 2:26 PM AUTOMOTIVE LOT ATTENDANT Catherine Todd MD LAB BLOOD ORDERABLES Final Result Performing Organization Address City/[facility] Co de Phone Number [address] [place] [address] * (ABNORMAL) IgM (08/27/2023 12:29 PM AUTOMOTIVE LOT ATTENDANT) [facility] Immunoglobulin M <25(L) 40 - 230 mg/dL Blood 08/27/2023 12:2 9 PM AUTOMOTIVE LOT ATTENDANT 08/27/2023 2:26 PM AUTOMOTIVE LOT ATTENDANT Catherine Todd MD LAB BLOOD ORDERABLES Final Result Performing Organization Address [facility] Co de Phone Number [address] [employer] [place] [address] * Immunotyping, serum (08/27/2023 12:29 PM AUTOMOTIVE LOT ATTENDANT) [facility] Immunosubtraction Please see comment Comment: FREE KAPPA LIGHT CHAIN PARAPROTEIN Reviewed and signed by Zak Graves MD, PhD on 08/28/2023 Testing performed by: [facility], [address] [place]., [address] Blood 08/27/2023 12:2 9 PM AUTOMOTIVE LOT ATTENDANT 08/27/2023 3:03 PM AUTOMOTIVE LOT ATTENDANT Result [facility] Catherine Todd MD LAB BLOOD ORDERABLES Final Result Performing Organization Address City/[facility] Co de Phone Number A[facility] [address] [employer] [place] [address] * (ABNORMAL) Immunoglobulin free light chains (08/27/2023 12:29 PM AUTOMOTIVE LOT ATTENDANT) Witherbee/Lambda ratio 20.39(H) 0.26 - 1.65 Comment:Testing performed by : [facility], [address] [place]., [address] Witherbee free light chain 16.72(H) 0.33 - 1.94 mg/dL [facility]IO Comment: Interpretive Data The Felisa Ig Witherbee FLC assay procedure was used. Results from different manufacturers or methods may not be comparable. Serial testing should be performed using the same method. Testing performed by: [facility], [address] [place]., [address] Lambda free light chain 0.82 0.57 - 2.63 mg/dL [facility] Comment: Interpretive Data The Felisa Ig Lambda FLC assay procedure was used. Results from different manufacturers or methods may not be comparable. Serial testing should be performed using the same method. Testing performed by: [facility], [address] [place]., [address] Blood 08/27/2023 12:2 9 PM AUTOMOTIVE LOT ATTENDANT 08/27/2023 3:03 PM AUTOMOTIVE LOT ATTENDANT Catherine Todd MD LAB BLOOD ORDERABLES Final Result Performing Organization Address City/[facility]/ZIP Co de Phone Number OLIVIA[address] [place] [address] * Lactate dehydrogenase (LD) (08/27/2023 12:29 PM AUTOMOTIVE LOT ATTENDANT) Pathologist [facility] Lactate dehydrogenase (LDH) 191 100 - 250 Units/L Comment:Testing performed by : [facility], [address] [place] [address]., [address] Blood 08/27/2023 12:2 9 PM AUTOMOTIVE LOT ATTENDANT 08/27/2023 12:32 PM AUTOMOTIVE LOT ATTENDANT Catherine Todd MD LAB BLOOD ORDERABLES Final Result [facility] [address] [facility] Department [place] [address] * (ABNORMAL) Protein electrophoresis with reflex, serum (08/27/2023 12:29 PM AUTOMOTIVE LOT ATTENDANT) [facility] Protein, sr 6.5 6.2 - 8.2 g/dL Comment:Testing performed by : [facility], [address] [place] [address]., [address] Albumin 4.3 3.2 - 5.0 g/dL [facility] Comment:Testing performed by : [facility], [address] [place] [address]., [address] Alpha-1 globulin 0.3 0.2 - 0.4 g/dL [facility] Comment:Testing performed by : [facility], [address] [place] [address]., [address] Alpha-2 globulin 0.8 0.5 - 1.0 g/dL [facility] Comment:Testing performed by : [facility], [address] [place] [address]., [address] Beta-1 globulin 0.4 0.3 - 0.6 g/dL [facility] Comment:Testing performed by : [facility], [address] [place] [address]., [address] Beta-2 globulin 0.3 0.2 - 0.6 g/dL [facility] Comment:Testing performed by : [facility], [address] [place] [address]., [address] Gamma globulin 0.4(L) 0.5 - 1.7 g/dL [facility] [place] Comment:Testing performed by : [facility], [address] [place]., [address] Rstr Pk Gamma 0.1(H) 0.0 - 0.0 g/dL [facility] [place]O Comment:Testing performed by : [facility], [address] [place]., [address] SPEP interp Please see comment [facility] [place]O Comment: Abnormal restricted peak in gamma region Decreased gamma globulins See immunotyping for further information Reviewed and signed by Zak Graves MD, PhD on 08/28/2023 Testing performed by: [facility], [address] [place]., [address] Blood 08/27/2023 12:2 9 PM AUTOMOTIVE LOT ATTENDANT 08/27/2023 3:03 PM AUTOMOTIVE LOT ATTENDANT us Catherine Todd MD LAB BLOOD ORDERABLES Final Result [facility] [address] [facility] Department [place] [address] documented in this encounter Visit Diagnoses Diagnosis Multiple myeloma not having achieved remission (CMS/HCC) (HCC) documented in this encounter Care Teams Yard Rigger Relationship Specialty Start Date End Date Elvis Lopez MD [facility] [place] [address] PCP - General Family Medicine 02/04/23 Catherine Todd MD [address] DIV IM BONE MARROW TRANSPLANT, [address] [place] [address] Medical Oncologist/Lead Electrician Hematology 08/27/23 documented as of this encounter
--- OUTSIDE RECORDS SUMMARY | 2024-06-26 01:35 | XMS_ITS | Encounter Summary ---
Author Organization [facility] Address [address] [place] [address] Care Team Providers Care Family Protection Specialist Name Role Phone Unavailable Primary Care Provider Unavailabl e Encounter Details Date Type Department Care Team (Late st Contact Info) Description 11/06/2020 Abstract [facility] Neurosurgery - [address] [place] [address] Provider, Abstract NO ADDRESS ON FILE Social [...] st Contact Info) Description 07/14/2024 9:00 AM SAFETY EQUIPMENT TESTING SPECIALIST Office Visit [facility] Oncology and Hematology - [place] [address] [place] [address] Brant Ratliff MD [address] [facility] [address] [place] [address] documented as of this encounter Visit Diagnoses Not on filedocumented in this encounter
--- OUTSIDE RECORDS SUMMARY | 2024-06-26 01:35 | XMS_ITS | Referral Summary ---
Author Organization [facility] [address] [facility] [address] Address [address] [place] [address] Care Team Providers Care Trench Digger Helper Name Role Phone Elvis Lopez MD Primary Care Provider [phone] Catherine Todd MD Unavailable [phone] Encounters Date Type Department Care Team Description 04/13/2024 8:30 AM CDT Office Visit [facility] Cardiology [address] [place] [address] Lawrence Danielson MD Nonrheumatic mitral valve regurgitation (Primary Dx) from Last 3 Months Allergies Active Allergy Reactions Criticality Noted Date Comments Doxycycline Monohydrate Unknown 08/29/2018 Alprazolam Other (See comments) Low 08/29/2018 Sleeps all day Amitriptyline Other (See comments) Low 08/29/2018 Sleeps all day Valdecoxib Unknown 08/29/2018 Dextran 70-Hypromellose (Pf) Unknown 019 Brompheniramine-Phenylephrine Unknown 2018 Desloratadine Unknown 08/29/2018 Codeine Meperidine Unknown 08/29/2018 Diclofenac Unknown 08/29/2018 Duloxetine Unknown 08/29/2018 Phenylephrine-Guaifenesin Unknown 08/29/2018 Wsyivbbyzgzilhue-Ix-Wxvwqyxzgg Other (Se e comments) Low 08/29/2018 Hard to awaken Hismanal Unknown 08/29/2018 Indomethacin Unknown 08/29/2018 Levofloxacin Loratadine Unknown Acetaminophen-Pamabrom Unknown 08/29/2018 Nabumetone Nickel Nyquil Unknown 08/29/2018 Piroxicam Prednisone Propoxyphene-Acetaminophen Carboxymethylcellulose Sodium Unknown 2018 Carbinoxamine-Pseudoephedrine Unknown 2018 Ramelteon Unknown 08/29/2018 Seldane Other (See comments) Low 08/29/2018 Upset stomach Sulfamethoxazole-Trimethoprim Unknown 2018 Tramadol-Acetaminophen Swelling Medium 11/26/2020 Trazodone Trinalin Unknown 08/29/2018 Ultracef Unknown 08/29/2018 Medications fluticasone (FLONASE) 50 mcg/actuation nasal spray Active glucosam velasquez gji-zlligsknj-Z-Mn 585-626-02-3 mg capsule Active hydroCHLOROthiazid e (HYDRODIURIL) 25 mg tablet TK 1 T PO QD 2 07/12/19 19 Active levothyroxine (SYNTHROID, LEVOTHROID) 50 mcg tablet TK 1 T PO QD 3 05/27/20 18 Active montelukast (SINGULAIR) 10 mg tablet TK 1 T PO D 3 08/18/19 19 Active metoprolol XL (TOPROL-XL) 100 mg 24 hr tablet TK 1 T PO D 3 06/27/19 19 Active MULTIVITAMIN ORAL Take by mouth Active omeprazole (PriLOSEC) 20 mg capsule Take 1 capsule (20 mg total) by mouth daily Active TURMERIC ORAL Take by mouth Ac tive ezetimibe (ZETIA) 10 mg tablet TK 1 T PO QD 3 02/28/20 19 Active gabapentin (NEURONTIN) 600 mg tablet 12/03/19 21 Active eszopiclone (LUNESTA) 3 mg tablet Take by mouth nightly as needed 06/23/19 22 Active omega 4-evy-qne-fish oil (Fish OiL) 100-160-1,000 mg capsule Take by mouth Active acetaminophen ER (Tylenol Arthritis Pain) 650 mg 8 hr tablet Take 1 tablet (650 mg total) by mouth every 8 (eight) hours as needed for pain Active Savella 25 mg tablet TAKE 1 TABLET BY MOUTH TWICE DAILY FOR FIBROMYALGIA 12/24/19 23 Active ramipriL (ALTACE) 10 mg capsule Take 1 capsule (10 mg total) by mouth daily 12/12/19 23 Active lidocaine (LIDODERM) 5 % APPLY 1 PATCH TOPICALLY TO THE SKIN DAILY. LEAVE ON MOST PAINFUL AREA FOR UP TO 12 HOURS 10/21/19 23 Active triamcinolone (KENALOG) 0.1 % cream APPLY TOPICALLY TO THE AFFECTED AREA TWICE DAILY 10/21/19 23 Active atorvastatin (LIPITOR) 20 mg tablet Take 1 tablet (20 mg total) by mouth nightly at bedtime 01/23/20 23 Active metroNIDAZOLE 1 % gel with pump Apply topically Active aspirin 81 mg capsule Take by mouth Active metFORMIN XR (GLUCOPHAGE XR) 500 mg 24 hr tablet 04/10/20 24 Active acyclovir (ZOVIRAX) 400 mg tablet Take 1 tablet (400 mg total) by mouth 2 (two) times a day 01/14/20 24 Active dexAMETHasone (DECADRON) 4 mg tablet Take 5 tablets by mouth weekly on every Wednesday03/14/20 24 Active ondansetron ODT (ZOFRAN-ODT) 8 mg disintegrating tablet Dissolve 1 tablet on top of tongue then swallow with saliva every 8 hours as needed for nausea or vomiting 02/09/20 24 Active sulfamethoxazole-t rimethoprim (BACTRIM DS) 800-160 mg per tablet Take 1 tablet by mouth twice daily on Wednesday and Wednesday01/14/20 24 Active Active Problems Patient Care Coordination No te Formatting of this note migh t be different from the original. Labs at [facility] prior to 3 mo f / u. 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 Nuclear sclerotic cataract 03/03/2016 Lumbago 12/25/2011 Hypertension 01/12/2011 Raynaud's disease 01/12/2011 Hypercholesterolemia 01/12/2011 Thyroid activity decreased 01/12/2011 Environmental allergies 01/12/2011 Regular astigmatism 01/12/2011 Knee pain 11/07/2010 Pain of foot 11/07/2010 Corneal scar 01/13/2010 Immunizations Name Administration Dates Next Due Influenza, Trivalent, High D ose, Split, Preservative Free, Intramuscular 03/25/2018 Influenza, Unspecified 03/31/2018 Pneumococcal, Unspecified 03/31/2018 Social History Tobacco Use Types Packs/Day Years [...] on file Legal Sex Female 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 AM 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 Gender Identity Female 06/07/2020 11:17 AM 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 Sexual Orientation Straight 06/07/2020 11 :17 AM 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 Last Filed Vital Signs Vital Sign Reading Time Taken Comments Blood Pressure 118/62 04/13/2024 8:36 AM CDT Pulse 65 04/13/2024 8:36 AM CDT Temperature 36.8 ??C (98.3 ??F) 12/03/2023 1:59 PM CD T Respiratory Rate 18 12/03/2023 1:59 PM CDT Oxygen Saturation 98% 04/13/2024 8:36 AM CDT Inhaled Oxygen Concentration - - Weight 97.1 kg (214 lb) 04/13/2024 8:36 AM CDT Height 172.7 cm (5' 8 ) 04/13/2024 8:36 AM CDT Body Mass Index 32.54 04/13/2024 8:36 AM CDT Plan of Treatment Not on file Insurance [facility] [id number] [facility] [id number] [facility] [id number] Care Teams Trench Digger Helper Relationship Specialty Start Date End Date Elvis Lopez MD [address] [facility] [place] [address] PCP - General Family Medicine 02/04/23 Catherine Todd MD [address] DIV IM BONE MARROW TRANSPLANT, [address] [place] [address] Medical Oncologist/Traffic Law Attorney Hematology 08/27/23
--- OUTSIDE RECORDS SUMMARY | 2024-06-26 01:35 | XMS_ITS | Encounter Summary ---
Author Organization [facility] Address [address] [place] [address] Phone Care Team Providers Care Venetian Blind Installer Name Role Phone Elvis Lopez MD Primary Care Provider [phone] Catherine Todd MD Unavailable [phone] Encounter Details Date Type Department Care Team (Late st Contact Info) Description 11/12/2023 Telephone [facility] Oncology [address] [facility] [address] [place] [address] Catherine Todd MD [address] DIV IM BONE MARROW TRANSPLANT, [address] [place] [address] Social History Tobacco Use Types Packs/Day Years [...] on file Legal Sex Female 3:01 AM FULL TIME STAFF INTERPRETER Gender Identity Female 06/07/2020 11:17 AM FULL TIME STAFF INTERPRETER Sexual Orientation Straight 06/07/2020 11 :17 AM FULL TIME STAFF INTERPRETER documented as of this encounter Miscellaneous Notes * Telephone Encounter - Falguni Lomeli RN - 11/17/2023 8:55 AM CDT Spoke with patient and made her aware of some of the results and that we will need to review results with Dr. Todd. I made her aware we will discuss this with him when he is back in the office and will have a plan for her by the time she comes to see us in November. Patient voiced understanding and thank'd me for the call. * Telephone Encounter - Falguni Lomeli RN - 11/17/2023 8:50 AM CDT Attempted to call patient back, VM left for her to call me back. * Telephone Encounter - Opal Jimenez CMA - 11/12/2023 2:53 PM CDT Requests for result of bone marrow bx documented in this encounter Plan of Treatment Not on file documented as of this encounter Visit Diagnoses Not on filedocumented in this encounter Care Teams Venetian Blind Installer Relationship Specialty Start Date End Date Elvis Lopez MD [address] [place] [address] [place] [address] PCP - General Family Medicine 02/04/23 Catherine Todd MD [address] DIV IM BONE MARROW TRANSPLANT, [address] [place] [address] Medical Oncologist/Water Quality Manager Hematology 08/27/23 documented as of this encounter
--- OUTSIDE RECORDS SUMMARY | 2024-06-26 01:35 | XMS_ITS | Encounter Summary ---
Author Organization [facility] Address [address] [facility] [address] [place] [address] Care Team Providers Care Oncology Transplant Network Manager Name Role Phone Elvis Lopez MD Primary Care Provider [phone] Reason for Visit * Reason Comments Annual Exam Encounter Details Date Type Department Care Team (Late st Contact Info) Description 02/04/2023 3:30 PM CDT Office Visit [facility] Cardiology [address] [facility] [address] [place] [address] Tiffani Back NP [address] [facility] [address] [place] [address] Nonrheumatic mitral valve regurgitation (Primary Dx); Nonrheumatic tricuspid valve regurgitation; Pulmonary hypertension (HCC); Primary hypertension; Hypercholesterolemia Social History Tobacco Use [...] on file Legal Sex Female 3:01 AM TABLE SAW OPERATOR Gender Identity Female 06/07/2020 11:17 AM TABLE SAW OPERATOR Sexual Orientation Straight 06/07/2020 11 :17 AM TABLE SAW OPERATOR documented as of this encounter Last Filed Vital Signs Vital Sign Reading Time Taken Comments Blood Pressure 122/68 02/04/2023 3:47 PM CDT Pulse 66 02/04/2023 3:47 PM CDT Temperature - - Respiratory Rate - - Oxygen Saturation 94% 02/04/2023 3:47 PM CDT Inhaled Oxygen Concentration - - Weight 93.9 kg (207 lb) 02/04/2023 3:47 PM CDT Height 172.7 cm (5' 8 ) 02/04/2023 3:47 PM CDT Body Mass Index 31.47 02/04/2023 3:47 PM CDT documented in this encounter Progress Notes * Tiffani Back NP - 02/04/2023 3:30 PM CDT Images from the original note were not included. [facility] Cardiology [address] [place] [address] Date of Visit: 02/04/2023 Patient ID: Sloane Elise 1940 Chief Complaint Patient presents with Annual Exam Sloane Elise is a 82 y.o. female who is an established patient of Dr. Almonte with a history mitral and tricuspid valve regurgitation and mild pulmonary hypertension returning to the office for annual follow-up. History of Present Illness: Sloane Elise is a 82 y.o. female with a PMHx of bone [...] recall medication. In August 2019 high free Inola LC, K/L ratio 20.77, B2 microglobulin, low [...] Toprol XL, Amlodipine, ASA. Wearing CPAP. 01/16/22 02/04/23 CAT visit- she is here for annual follow-up. She feels she wears out quickly and reading isheavier when she does physical activity which she attributes to chronic arthritis pain affecting her back, knees and feet. She uses a walker. She did fall 1-2 months ago when she tripped on the carpet without her walker. She is having a minor procedure for her back next week and had a preop ECG yesterday. She has had no further chest pain. Records that I personally reviewed on the day of this visit include: (the interpretation is outlined in the HPI above) 01/16/[address] Almonte. I have also reviewed: allergies, current medications, past family history, past medical history, past social history, past surgical history and problem list. Medical History: Past Medical History: Diagnosis Date Age-related nuclear [...] BLADDER REPAIR COLONOSCOPY FOOT SURGERY HYSTERECTOMY TONSILLECTOMY/ADENOIDECTOMY Social History Tobacco Use Smoking Status Never Smokeless Tobacco Never Social History Tobacco Use Smoking status: Never Smokeless tobacco: Never Substance and Sexual Activity Drug use: Never Sexual activity: Defer Alcohol Use: Not At Risk (08/29/2018) AUDIT-C Frequency of Alcohol Consumption: Never Average Number of Drinks: Not on file Frequency of Binge Drinking: Not on file Family History Problem Relation Age of Onset Thyroid disease Mother Heart failure Father Heart disease Father Heart disease Sister Other (enlarged heart) Sister Lung cancer Brother Heart failure Brother Review of Systems Constitutional: Positive for malaise/fatigue. Negative for weight gain and weight loss. Cardiovascular: Negative for chest pain, claudication, dyspnea on exertion, leg swelling, near-syncope, orthopnea, palpitations, paroxysmal nocturnal dyspnea and syncope. Respiratory: Negative for cough, shortness of breath and sleep disturbances due to breathing. Hematologic/Lymphatic: Negative for bleeding problem. Does not bruise/bleed easily. Musculoskeletal: Positive for arthritis, back pain and joint pain. Neurological: Negative for dizziness and light-headedness. Vital Signs: BP 122/68 (BP Location: Left arm, Patient Position: Sitting) Pulse 66 Ht 172.7 cm (5' 8 ) Wt 93.9 kg (207 lb) SpO2 94% BMI 31.47 kg/m?? Physical Exam Constitutional: General: She is not in acute distress. Appearance: She is well-developed. She is obese. Comments: Appears younger than stated age. Ambulates slowly with a walker. HENT: Head: Normocephalic and atraumatic. Eyes: General: No scleral icterus. Conjunctiva/sclera: Conjunctivae normal. Neck: Vascular: No JVD. Trachea: No tracheal deviation. Cardiovascular: Rate and Rhythm: Normal rate and regular rhythm. Heart sounds: Normal heart sounds. No murmur heard. Pulmonary: Effort: Pulmonary effort is normal. No respiratory distress. Breath sounds: Normal breath sounds. Skin: General: Skin is warm and dry. Neurological: Mental Status: She is alert and oriented to person, place, and time. Psychiatric: Mood and Affect: Mood normal. Behavior: Behavior normal. Allergies Allergen Reactions Tramadol-Acetaminophen Swelling Adoxa [Doxycycline [...] Other (See comments) Sleeps all day Extendryl [Xslbntlobsbijrcc-Jo-Vrffenvsep] Other (See comments) Hard to awaken Seldane Other (See comments) Upset stomach Current Outpatient Medications: acetaminophen ER (Tylenol Arthritis Pain) 650 mg [...] TAKE ONE CAPSULE BY MOUTH EVERY 2 WEEKS, Disp: ,Rfl: docosahexanoic acid/epa (FISH OIL ORAL), Take by mouth, Disp: , Rfl: eszopiclone (LUNESTA) 3 mg tablet, Take by mouth nightly as needed, Disp: , Rfl: ezetimibe (ZETIA) 10 mg tablet, TK 1 T PO QD, Disp: , Rfl: 3 fluticasone (FLONASE) 50 mcg/actuation nasal spray, , Disp: , Rfl: gabapentin (NEURONTIN) 600 mg tablet, , Disp: , Rfl: glucosam velasquez dpy-tvulitwls-O-Mn 382-238-91-3 mg capsule, , Disp: , Rfl: hydroCHLOROthiazide (HYDRODIURIL) 25 mg tablet, TK 1 T PO QD, Disp: , Rfl: 2 levothyroxine (SYNTHROID, LEVOTHROID) 50 mcg tablet, TK 1 T PO QD, Disp: , Rfl: 3 lidocaine (LIDODERM) 5 %, APPLY 1 PATCH TOPICALLY TO THE SKIN DAILY. LEAVE ON MOST PAINFUL AREA FORUP TO 12 HOURS, Disp: , Rfl: magnesium oxide 400 mg magnesium tablet, Take by mouth, Disp: , Rfl: metoprolol XL (TOPROL-XL) 100 mg 24 hr tablet, TK 1 T PO D, Disp: , Rfl: 3 metroNIDAZOLE 1 % gel with pump, APPLY ONE PUMP TOPICALY TWICE DAILY, Disp: , Rfl: montelukast (SINGULAIR) 10 mg tablet, TK 1 T PO D, Disp: , Rfl: 3 MULTIVITAMIN ORAL, Take by mouth, Disp: , Rfl: omega 9-zpo-mdw-fish oil (Fish OiL) 100-160-1,000 mg capsule, Take [...] 400 unit capsule, , Disp: , Rfl: Lab Results Component Value Date POTASSIUM 4.0 12/11/2022 BUNSER 22 12/11/2022 CREATININE 0.94 12/11/2022 Lab Results Component Value Date WBC 4.3 12/11/2022 HGB 12.2 12/11/2022 HCT 35.8 12/11/2022 MCV 94.5 12/11/2022 No results found for this or any previous visit (from the past 4 hour(s)). Lab Results Component Value Date POCCHOL 210 01/16/2022 POCHDL 37 01/16/2022 POCTRIG 269 01/16/2022 POCLDL 119 01/16/2022 POCNONHDL 173 01/16/2022 POCCHLPL 210 01/16/2022 Assessment: Diagnoses and all orders for this visit: Nonrheumatic mitral valve regurgitation (Primary) Nonrheumatic tricuspid valve regurgitation Pulmonary hypertension (HCC) Primary hypertension Hypercholesterolemia Plan/Recommendations: She is followed for moderate mitral valve and tricuspid valve regurgitation. Murmur on exam today is unimpressive. She is not endorsing any signs or symptoms of decompensated heart failure. There is no indication to get a new echocardiogram at this time. I reviewed signs/symptoms of decompensated heart failure with her so she would recognize this if it occurred and notify us, at which time we would reassess her and repeat an echo. She also has a history of moderate pulmonary hypertension. Again, she is not endorsing any symptomsthat this is worsening. She is compliant with her CPAP. Continue to monitor. Hypertension and hyperlipidemia are managed by her PCP. Continue medical therapy with amlodipine, hydrochlorothiazide, metoprolol, ramipril, ezetimibe. Return to the office for follow-up with Dr. Almonte in another year. Call us sooner with questions or concerns. 02/04/2023 RAIZA Ortiz- Nurse Practitioner with [facility] Cardiology This note is dictated and transcribed using [employer] Software. Revenue Audit Clerk variancesmay occur. Despite proofreading, typographical errors may occur. documented in this encounter Plan of Treatment Not on file documented as of this encounter Visit Diagnoses Diagnosis Nonrheumatic mitral valve regurgitation- Primary Nonrheumatic tricuspid valve regurgitation Pulmonary hypertension (HCC) Other chronic pulmonary heart diseases Primary hypertension Unspecified essential hypertension Hypercholesterolemia Pure hypercholesterolemia documented in this encounter Discontinued Medications Medication Sig Discontinue Reason Start Date End Da te glucosam velasquez qut-uioyfwuqm-C-Mn 944-467-35-3 mg capsule Duplicate order 02/05/20 documented as of this encounter Historical Medications * This list may reflect changes made after this encounter. atorvastatin (LIPITOR) 20 mg tablet Take 1 tablet (20 mg total) by mouth nightly at bedtime 01/22/2023 added in this encounter Care Teams Oncology Transplant Network Manager Relationship Specialty Start Date End Date Elvis Lopez MD [facility] [facility] [place] [address] PCP - General Family Medicine 02/04/23 documented as of this encounter
--- OUTSIDE RECORDS SUMMARY | 2024-06-26 01:35 | XMS_ITS | Encounter Summary ---
Author Organization [facility] Address [address] [place] [address] Phone Care Team Providers Care Car Ferrier Name Role Phone Elvis Lopez MD Primary Care Provider [phone] Catherine Todd MD Unavailable [phone] Reason for Referral * Diagnostic Imaging (Routine) - Closed Specialty Diagnoses / Procedures Referred By Contac t Referred To Contact Diagnoses Multiple myeloma not having achieved remission (CMS/HCC) (HCC) Procedures XR Osseous Survey Complete Catherine Todd MD [address] DIV IM BONE MARROW TRANSPLANT, [address] [address] Phone: tel: fax: [facility] [address] [place] [address] Referral ID Status Reason Start Date Expiration Date Visits Re quested Visits Authorized [id number] Closed 08/27/2023 09/25/2024 1 1 TESTER Reason for Visit * Reason Comments Follow-up Encounter Details Date Type Department Care Team (Late st Contact Info) Description 08/27/2023 1:00 PM MAT TESTER Office Visit [facility] Bone Marrow Transplant [address] [place] [address] Catherine Todd MD [address] DIV IM BONE MARROW TRANSPLANT, [address] [place] [id number] Multiple myeloma not having achieved remission (CMS/HCC) (HCC) (Primary Dx) Social History Tobacco Use Types [...] on file Legal Sex Female 3:01 AM MAT TESTER Gender Identity Female 06/07/2020 11:17 AM MAT TESTER Sexual Orientation Straight 06/07/2020 11 :17 AM MAT TESTER documented as of this encounter Last Filed Vital Signs Vital Sign Reading Time Taken Comments Blood Pressure 159/78 08/27/2023 12:40 PM MAT TESTER Pulse 64 08/27/2023 12:40 PM MAT TESTER Temperature 36.7 ??C (98 ??F) 08/27/2023 12: 40 PM MAT TESTER Respiratory Rate 18 08/27/2023 12:4 0 PM MAT TESTER Oxygen Saturation 97% 08/27/2023 12: 40 PM MAT TESTER Inhaled Oxygen Concentration - - Weight 97.2 kg (214 lb 3.2 oz) 08/27/19 24 12:40 PM MAT TESTER with shoes Height 172.7 cm (5' 8 ) 08/27/2023 12:4 0 PM MAT TESTER Body Mass Index 32.57 08/27/2023 12:40 PM MAT TESTER documented in this encounter Patient Instructions * Patient Instructions* Falguni Lomeli RN - 08/27/2023 1:00 PM MAT TESTER For bone survey test- go to [address] (radiology) no apt needed. They are open M-F [phone] TESTER documented in this encounter Progress Notes * Catherine Todd MD - 08/27/2023 1:00 PM CST Images from the original note were not included. BMT Oncology Progress Note PATIENT NAME: Rigoberto Elise : 1940 AUSTYN: 08/27/2023 Primary Care Physician: Yosi Whaley MD Cancer [...] cell count was 4.9, platelet count was [id number]. Metabolic profile was unremarkable. IgG was 350, [...] was 13 g, and a platelet countof 179664. A complete metabolic profile was unremarkable. LDH [...] on her blood work typically done at [facility] prior to her visit today. She has [...] Ms Elise continues to have an elevated [place] FLC and no deterioration in her GFR. She had no bone marrow aspirate and biopsy since her diagnosis and we encouraged her to work with us to allow us to repeat her bone marrow in [facility] if necessary under sedation. Her is nearly blind and she cannot drive down to [place] in [facility]. We will work with her and her campo of friends and social work to allow her to have a marrow aspirate and biopsy to work her up for plasma cell dysrasia. If she has multiple myeloma she may benefit from daratumomab. We will also check her immunocompetence testing since her IgG is low at 387 mg/dL. Patient Active Problem List Diagnosis Corneal scar [...] cataract Senile nuclear cataract - (Added by Conv) Anemia Borderline glaucoma, open angle with [...] Other (See comments) Sleeps all day Extendryl [Jwmoqeoptwllkpbz-Ai-Xkgksmqvdd] Other (See comments) Hard to awaken Seldane Other (See comments) Upset stomach Immunization History Administered Date(s) Administered Influenza, Trivalent, High Dose, Split, Preservative Free, Intramuscular 03/25/2018 Influenza, Unspecified 03/31/2018 Pneumococcal, Unspecified 03/31/2018 Outpatient Encounter Medications as of 08/27/2023: acetaminophen ER (Tylenol Arthritis Pain) 650 mg [...] by mouth nightly at bedtime, Disp:, Rfl: docosahexanoic acid/epa (FISH OIL ORAL), Take by mouth, Disp: , Rfl: eszopiclone (LUNESTA) 3 mg tablet, Take by mouth nightly as needed, Disp: , Rfl: ezetimibe (ZETIA) 10 mg tablet, TK 1 T PO QD, Disp: , Rfl: 3 fluticasone (FLONASE) 50 mcg/actuation nasal spray, , Disp: , Rfl: gabapentin (NEURONTIN) 600 mg tablet, , Disp: , Rfl: glucosam velasquez cko-dkawhoqth-V-Mn 335-306-45-3 mg capsule, , Disp: , Rfl: hydroCHLOROthiazide [...] Take by mouth, Disp: , Rfl: omega 8-wmg-jgf-fish oil (Fish OiL) 100-160-1,000 mg capsule, Take [...] 400 unit capsule, , Disp: , Rfl: cholecalciferol (VITAMIN D-3) 50,000 unit capsule, TAKE ONE CAPSULE BY MOUTH EVERY 2 WEEKS (Patientnot taking: Reported on 08/27/2023), Disp: , Rfl: [DISCONTINUED] magnesium oxide 400 mg magnesium tablet, Take by mouth (Patient not taking: Reportedon 08/27/2023), Disp: , Rfl: [DISCONTINUED] metroNIDAZOLE 1 % gel with pump, APPLY ONE PUMP TOPICALY TWICE DAILY (Patient not taking: Reported on 08/27/2023), Disp: , Rfl: Review of Systems Constitutional: [...] Performance Status: ECOG 1 Objective Vitals BP 159/78 (BP Location: Left arm) Pulse 64 Temp 36.7 ??C (98 ??F) (Oral) Resp 18 Ht 172.7 cm (5' 8 ) Wt 97.2 kg (214 lb 3.2 oz) SpO2 97% BMI 32.57 kg/m?? Physical exam: General appearance: appears stated [...] M 40 - 230 mg/dL 21 <25 [place]/Lambda light chains free with ratio 0.26 - 1.65 25.11 [place] light chain, free 3.3 - 19.4 mg/L 178.3 Lambda light chain, free 5.7 - 26.3 mg/L 7.1 Alpha-1 globulin 0.2 - 0.3 g/dL 0.3 Alpha-2 globulin 0.5 - 0.9 g/dL 0.9 Beta-1 globulin 0.4 - 0.6 g/dL 0.4 Gamma globulin 0.8 - 1.7 g/dL 0.5 Latest Reference Range & Units 08/29/18 15:47 [...] M-Priyank Not Observed g/dL 0.2 (H) Free [place] Lt Chains,S 3.30 - 19.40 mg/L 90.7 (H) 145.00 ! [place] light chain, free 3.3 - 19.4 mg/L 138.3 (H) 121.8 (H) 121.0 (H) 151.0 (H) 178.3 (H) Lambda light chain, free 5.7 - 26.3 mg/L 7.8 6.6 6.6 8.1 7.1 Free Lambda LC, Quant 5.71 - 26.30 mg/L 6.98 [place]/Lambda Ratio,S 0.26 - 1.65 13.74 (H) 20.77 ! [place]/Lambda light chains free with ratio 0.26 - 1.65 17.73 (H) 18.45 (H) 18.33 (H) 18.64 (H) 25.11(H) (L): Data is abnormally low (H): Data is abnormally high !: Data is abnormal Radiology: None recently last PET CT scan was in 2019. Narrative & Impression Patient Name: RIGOBERTO ELISE Madelyn Atkinson Dr: Akbar Pittman Jr, MD, D.O.B: 1940 Exam Date: 07/17/19 0000 Age: 78 Sex: Female MR#: [id number] Loc: RADIOLOGY REPORT Order #[id number] PET PET/CT Whole Body-OP Use Only Signed [...] - Electronically signed by Sina Thomason M.D. Assessment/Plan 1) Monoclonal gammopathy of uncertain significance (MGUS): this is a misnomer since she has no M-spike and we have yet to obtain a serum immunofixation to detect kappa or lambda restricted paraproteins. She has hypogammaglobulinemia which may predispose her to get sinus and pulmonary infections. Her last PET CT scan in 2019 was negative for multiple myeloma. She has not had a recent bone marrow aspirate and biopsy to find out if her marrow is hypocellular or otherwise has detectable plasma celldyscrasia. Her blood count are normal and have been stable. 2) Immunocompetence testing: not done, ALC - 1.7 done at [facility] on 12/11/22. 3) Acquired hypogammaglobulinemia: IgG, IgA [...] or Covid-19 boosters. Follow up in on 12/03/2023. My total encounter time on 08/27/2023 was 40 minutes which was spent in the activities documented inthe note. This includes time spent prior to the visit and after the visit in direct care of the patient. This time does not include time spent in any separately reportable services. Catherine Todd M.D., [facility] perin[facility] Section of BMT & Leukemia CC; Patient Care Team: Elvis Lopez MD as PCP - General (Family Medicine) Catherine Todd MD as Medical Oncologist/Management Rep (Hematology) TESTER documented in this encounter Plan of Treatment Not on file documented as of this encounter Results * (ABNORMAL) Immune competence (12/03/2023 1:41 PM CDT) CD3 pct 72 60 - 88 % Comment:Testing performed by : [facility], [address] [place] [address] CD3 Absolute 1,160 661 - 1,963 cells/mcL [facility] Comment:Testing performed by : [facility], [address] [place]., [address] CD4 pct 58 31 - 64 % [facility] Comment:Testing performed by : [facility], [address] [place]., [address] CD4 Absolute 952 365 - 1,294 cells/mcL [facility] Comment:Testing performed by : [facility], [address] [facility], [address] CD8 pct 9(L) 12 - 40 % [facility] Comment:Testing performed by : [facility], [address] [facility], [address] CD8 Absolute 150(L) 187 - 781 cells/mcL [facility] Comment:Testing performed by : [facility], [address] [facility], [address] CD19 pct 16 6 - 25 % [facility] Comment:Testing performed by : [facility], [address] [facility], [address] CD19 Absolute 254 86 - 488 cells/mcL [facility] Comment:Testing performed by : [facility], [address] [facility], [address] [id number] pct 11 5 - 25 % [facility] Comment:Testing performed by : [facility], [address] [facility], [address] [id number] Absolute 174 76 - 467 cells/mcL [facility] Comment:Testing performed by : [facility], [address] [facility], [address] CD4/CD8 ratio 6.4(H) 0.9 - 4.4 [facility] Comment:Testing performed by : [facility], [address] [facility], [address] Blood 12/03/2023 1:41 PM CDT 12/03/2023 5:25 PM CDT us Catherine Todd MD LAB BLOOD ORDERABLES Final Result [facility] [address] [facility] Department [place] [address] * (ABNORMAL) Protein electrophoresis with reflex, serum (12/03/2023 1:41 PM CDT) Pathologist [facility] Protein, sr 6.8 6.2 - 8.2 g/dL Comment:Testing performed by : [facility], [address] [facility], [address] Albumin 4.4 3.2 - 5.0 g/dL [facility] Comment:Testing performed by : [facility], [address] [facility], [address] Alpha-1 globulin 0.3 0.2 - 0.4 g/dL [facility] Comment:Testing performed by : [facility], [address] [place] [address], [address] Alpha-2 globulin 0.9 0.5 - 1.0 g/dL [facility] Comment:Testing performed by : [facility], [address] [facility], [address] Beta-1 globulin 0.4 0.3 - 0.6 g/dL [facility] Comment:Testing performed by : [facility], [address] [place] [address], [address] Beta-2 globulin 0.3 0.2 - 0.6 g/dL [facility] Comment:Testing performed by : [facility], [address] [place] [address], [address] Gamma globulin 0.4(L) 0.5 - 1.7 g/dL [facility] Comment:Testing performed by : [facility], [address] [place] [address], [address] Rstr Pk Gamma 0.1(H) 0.0 - 0.0 g/dL [facility] Comment:Testing performed by : [facility], [address] [place] [address], [address] SPEP interp Please see comment [facility] Comment: Abnormal restricted peak in Gamma region Decreased gamma globulins Electrophoretic pattern appears similar to previous sample 08-28-23 See immunotyping for further information Reviewed and signed by Tyree Latham MD 12/05/2023 Testing performed by: [facility], [address] [place] [address], [address] Blood 12/03/2023 1:41 PM CDT 12/03/2023 5:25 PM CDT Catherine Todd MD LAB BLOOD ORDERABLES Final Result Performing Organization Address [facility] Co de Phone Number OLIVIA[address] [address] * Lactate dehydrogenase (LD) (12/03/2023 1:41 PM CDT) Pathologist [facility] Lactate dehydrogenase (LDH) 175 100 - 250 Units/L Comment:Testing performed by : [facility], [address] [place] [address]., [address] Blood 12/03/2023 1:41 PM CDT 12/03/2023 1:42 PM CDT Catherine Todd MD LAB BLOOD ORDERABLES Final Result Performing Organization Address [facility] de Phone Number [address] [address] * (ABNORMAL) Immunoglobulin free light chains (12/03/2023 1:41 PM CDT) [facility] [place]/Lambda ratio 28.44(H) 0.26 - 1.65 Comment:Testing performed by : [facility], [address] [place] [address]., [address] [place] free light chain 18.20(H) 0.33 - 1.94 mg/dL [facility] Comment: Interpretive Data The Felisa Ig [place] FLC assay procedure was used. Results from different manufacturers or methods may not be comparable. Serial testing should be performed using the same method. Testing performed by: [facility], [address] [place]., [address] Lambda free light chain 0.64 0.57 - 2.63 mg/dL [facility] Comment: Interpretive Data The Felisa Ig Lambda FLC assay procedure was used. Results from different manufacturers or methods may not be comparable. Serial testing should be performed using the same method. Testing performed by: [facility], [address] [place]., [address] Blood 12/03/2023 1:41 PM CDT 12/03/2023 5:25 PM CDT Catherine Todd MD LAB BLOOD ORDERABLES Final Result [facility] [address] [employer] [place] [address] * Immunotyping, serum (12/03/2023 1:41 PM CDT) Pathologist [facility] Immunosubtraction Please see comment Comment: FREE [place] LIGHT CHAIN PARAPROTEIN Reviewed and signed by Tyree Latham MD 12/05/2023 Testing performed by: [facility], [address] [facility], [address] Blood 12/03/2023 1:41 PM CDT 12/03/2023 5:25 PM CDT Catherine Todd MD LAB BLOOD ORDERABLES Final Result Performing Organization Address [facility]/ZIP Co de Phone Number [address] [employer] [place] [address] * (ABNORMAL) IgM (12/03/2023 1:41 PM CDT) Pathologist [facility] Immunoglobulin M <25(L) 40 - 230 mg/dL Blood 12/03/2023 1:41 PM CDT 12/03/2023 4:45 PM CDT Catherine Todd MD LAB BLOOD ORDERABLES Final Result [facility] [address] [employer] [place] [address] * (ABNORMAL) IgG (12/03/2023 1:41 PM CDT) [facility] Immunoglobulin G 400(L) 700 - 1,600 mg/dL Blood 12/03/2023 1:41 PM CDT 12/03/2023 4:45 PM CDT Catherine Todd MD LAB BLOOD ORDERABLES Final Result Performing Organization Address [facility] Co de Phone Number [address] [address] * (ABNORMAL) IgA (12/03/2023 1:41 PM CDT) Immunoglobulin A 69(L) 70 - 400 mg/dL Blood 12/03/2023 1:41 PM CDT 12/03/2023 4:45 PM CDT Catherine Todd MD LAB BLOOD ORDERABLES Final Result Performing Organization Address [facility] de Phone Number [address] [address] * (ABNORMAL) Comprehensive metabolic panel (12/03/2023 1:41 PM CDT) Pathologist [facility] Sodium 134(L) 135 - 145 mmol/L Comment:Testing performed by : [address] [address] Potassium, pl 3.7 3.3 - 4.9 mmol/L [facility] Comment:Testing performed by : [address] [address] Chloride 95(L) 97 - 110 mmol/L [facility] Comment:Testing performed by : [address] [address] CO2 26 22 - 32 mmol/L [facility] Comment:Testing performed by : [address] [address] Anion gap 13 2 - 15 mmol/L [facility] Comment:Testing performed by : [address] [address] BUN 20 6 - 25 mg/dL [facility] Comment:Testing performed by : [address] [address] Creatinine 0.70 0.60 - 1.10 mg/dL [facility] Comment:Testing performed by : [address] [address] Glucose 163 70 - 199 mg/dL [facility] Comment: Interpretive [...] classification and Diagnosis of Diabetes Diabetes Care 202; 46: S19-S40. Current interpretive data was last revised 2022. Testing performed by: [address] [address] Calcium 9.7 8.5 - 10.3 mg/dL [facility] Comment:Testing performed by : [address] [address] Bilirubin, total 0.3 0.1 - 1.2 mg/dL [facility] Comment:Testing performed by : [address] [address] Protein, pl 7.0 6.5 - 8.5 g/dL [facility] Comment:Testing performed by : [address] [address] Albumin 4.7 3.5 - 5.0 g/dL [facility] Comment:Testing performed by : [address] [address] Alk phos 71 40 - 130 Units/L [facility] Comment:Testing performed by : [address] [address] ALT 15 7 - 45 Units/L [facility] Comment:Testing performed by : [address] [address] AST 17 10 - 45 Units/L [facility] Comment:Testing performed by : [address] [address] Blood 12/03/2023 1:41 PM CDT 12/03/2023 1:42 PM CDT Catherine Todd MD LAB BLOOD ORDERABLES Final Result [facility] [address] [facility] Department [place] [address] * (ABNORMAL) CBC with auto differential (12/03/2023 1:41 PM CDT) Pathologist [facility] WBC 3.7(L) 3.8 - 9.9 K/cumm Comment:Testing performed by : [address] [address] Hgb 11.4(L) 11.9 - 15.5 g/dL [facility] Comment:Testing performed by : [address] [address] Hct 33.5(L) 35.6 - 45.5 % [facility] Comment:Testing performed by : [address] [address] Plt 229 150 - 400 K/cumm [facility] Comment:Testing performed by : [address] [address] MPV 9.8 9.1 - 12.3 fL [facility] Comment:Testing performed by : [address] [address] RBC 3.53(L) 3.90 - 5.20 M/cumm [facility] Comment:Testing performed by : [address] [address] MCV 94.9 81.3 - 96.4 fL [facility] Comment:Testing performed by : [address] [address] MCH 32.3 27.1 - 33.3 pg [facility] [place] Comment:Testing performed by : [address] [address] MCHC 34.0 32.3 - 35.7 g/dL [facility] [place] Comment:Testing performed by : [address] [address] RDW CV 15.6(H) 11.1 - 14.9 % [facility] Comment:Testing performed by : [address] [address] RDW SD 54.4(H) 35.7 - 48.1 fL [facility] Comment:Testing performed by : [address] [address] NRBC abs 0.00 0.00 - 0.01 K/cumm [facility] Comment:Testing performed by : [address] [address] Blood 12/03/2023 1:41 PM CDT 12/03/2023 1:42 PM CDT Catherine Todd MD LAB BLOOD ORDERABLES Final Result Performing Organization Address [facility] Co de Phone Number [address] [place] [address] * (ABNORMAL) Beta 2 microglobulin, serum (12/03/2023 1:41 PM CDT) Beta 2 Microglobulin, Serum 3.50(H) 1.00 - 2.50 mg/L Comment: Interpretive Data The Felisa Beta-2 microglobulin assay procedure was used. Results from different manufacturers or methods may not be comparable. Serial testing should be performed using the same method. Testing performed by: [address] [address] Blood 12/03/2023 1:41 PM CDT 12/03/2023 4:07 PM CDT Catherine Todd MD LAB BLOOD ORDERABLES Final Result Performing Organization Address [facility] Co de Phone Number [address] [place] [address] * XR Osseous Survey Complete (08/27/2023 3:11 PM MAT TESTER) Anatomical Region Laterality Modality Body N/A Computed Radiogr aphy 08/29/2023 11:4 6 AM CDT Narrative 08/29/2023 11:50 AM CDT EXAM DESCRIPTION: ?? XR OSSEOUS SURVEY COMPLETE 12 MONTHS AND OLDER REASON FOR STUDY: ?? MGUS ?? TECHNIQUE: 16 views of the axial and proximal appendicular skeleton are obtained including lateral skull and frontal chest films. COMPARISON: ?? 01/08/2023 FINDINGS: CHEST: ?? There are no suspicious osseous lytic or blastic lesions. ?? The lungs are clear. ??There is no pneumothorax. ??The heart size is within normal limits. SKULL: ??No suspicious osseous lytic or blastic lesions. UPPER EXTREMITIES: ??No suspicious osseous lytic or blastic lesions. CERVICAL, THORACIC, LUMBAR SPINE: ??There are no suspicious osseous lytic or blastic lesions. There are no fractures. 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 ??This is greatest at L3-L4 and L5-S1. PELVIS: ?? No suspicious osseous lytic or blastic lesions. LOWER EXTREMITIES: ?? No suspicious osseous lytic or blastic lesions. IMPRESSION: No suspicious osseous lytic or blastic lesions. ?? THIS IS AN ELECTRONICALLY VERIFIED FINAL REPORT 08/29/2023 11:50 AM - Electronically signed by ??Lawrence Mosqueda M.D. MF: [id number] D: ??08/29/2023 11:50 AM T: ??08/29/2023 11:50 AM Report ID: [id number] Reading Location: ??[id number] Procedure Note Lawrence Mosqueda MD - 08/29/2023 EXAM DESCRIPTION: XR OSSEOUS SURVEY COMPLETE 12 MONTHS AND OLDER REASON FOR STUDY: MGUS TECHNIQUE: 16 views of the axial and proximal appendicular skeleton are obtained including lateral skull and frontal chest films. COMPARISON: 01/08/2023 FINDINGS: CHEST: There are no suspicious osseous lytic or blasticlesions. The lungs are clear. There is no pneumothorax. The heart size is within normal limits. SKULL: No suspicious osseous lytic or blastic lesions. UPPER EXTREMITIES: No suspicious osseous lytic or blastic lesions. CERVICAL, THORACIC, LUMBAR SPINE: There are no suspicious osseous lyticor blastic lesions. There are no fractures. There is multilevel degenerativedisc disease with facet osteoarthritis. This is greatest at L3-L4 and L5-S1. PELVIS: No suspicious osseous lytic or blastic lesions. LOWER EXTREMITIES: No suspicious osseous lytic or blastic lesions. IMPRESSION: No suspicious osseous lytic or blastic lesions. THIS IS AN ELECTRONICALLY VERIFIED FINAL REPORT 08/29/2023 11:50 AM - Electronically signed by Lawrence Mosqueda M.D. MF: [id number] Report ID: [id number] Reading Location: [place] [address] Catherine Todd MD IMG XR PROCEDURES Final Res ult documented in this encounter Visit Diagnoses Diagnosis Multiple myeloma not having achieved remission (CMS/HCC) (HCC)- Primary Multiple myeloma not having achieved remission (CMS/HCC) (HCC) documented in this encounter Discontinued Medications Medication Sig Discontinue Reason Start Date End Da te magnesium oxide 400 mg magnesium tablet Take by mouth 08/27/2023 metroNIDAZOLE 1 % gel with pump APPLY ONE PUMP TOPICALY TWICE DAILY 11/28/2021 08/27/2023 documented as of this encounter Orders Appointment Requests Count Last Ordered Date Fi rst Ordered Date ONCBCN CLINIC APPOINTMENT REQUEST 2 024 08/27/2023 ON[facility]N LAB APPOINTMENT 1 12/03/2023 documented in this encounter Care Teams Car Ferrier Relationship Specialty Start Date End Date Elvis Lopez MD [facility] [place] [address] PCP - General Family Medicine 02/04/23 Catherine Todd MD [address] DIV BONE MARROW TRANSPLANT, [address] [place] [address] Medical Oncologist/Management Rep Hematology 08/27/23 documented as of this encounter
--- OUTSIDE RECORDS SUMMARY | 2024-06-26 01:35 | XMS_ITS | Encounter Summary ---
Author Organization [facility] Address [address] [place] [address] Care Team Providers Care Indian Blanket Weaver Name Role Phone Unavailable Primary Care Provider Unavailabl e Encounter Details Date Type Department Care Team (Late st Contact Info) Description 11/07/2020 Orders Only [facility] Neurosurgery - [address] [place] [address] Provider, Abstract NO ADDRESS ON [...] st Contact Info) Description 07/14/2024 9:00 AM SERVICE SUPERVISOR Office Visit [facility] Oncology and Hematology - [place] [address] [place] [address] Brant Ratliff MD [address] [place] [address] documented as of this encounter Procedures Procedure Name Priority Date/Time Associated Diagnosis Comments CT ABDOMEN PELVIS W CONTRAST Routine 09/26/2020 XR LUMBAR SPINE 2 OR 3 VW Routine 07/10/2020 documented in this encounter Results * CT ABDOMEN PELVIS W CONTRAST (09/26/2020) Anatomical Region Laterality Modality Abdomen Other Abstract Provider CT ORDERABLES * XR LUMBAR SPINE 2 OR 3 VW (07/10/2020) Anatomical Region Laterality Modality Spine Other Abstract Provider DIAGNOSTIC IMAGING O RDERABLES documented in this encounter Visit Diagnoses Not on filedocumented in this encounter
--- OUTSIDE RECORDS SUMMARY | 2024-06-26 01:35 | XMS_ITS ---
Author Organization [facility] [address] Address [address] [place] [address] Care Team Providers Care Industrial Property Appraiser Name Role Phone Elvis Lopez MD Primary Care Provider [phone] Catherine Todd MD Unavailable [phone] Active Problems Patient Care Coordination No te Formatting of this note migh t be different from the original. Labs at [facility] prior to 3 mo f / u. 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 Past Plans Oncology Chemotherapy Treatment Plan Name Start Date Discontinue Date Treatment Medications Discontinue Reason Plan Provider Cycles Daratumumab SUBCUTANEOUS / Lenalidomide / Bortezomib / Dexamethasone (D-RVd Induction/Consol idation) followed by Daratumumab / Lenalidomide (D-R Maintenance) - Myeloma 4 01/13/2024 bortezomib (VELCADE)delia álvarezumab-[facility] (DARZALEZ FASPRO) (DARZELEX FASPRO)sathya kendall (REVLIMID) Patient Preference Catherine Todd MD Treatment not started Radiation Treatments * No radiation treatments are documented for this patient in [facility]. Treatments may have been administered in another system. Lifetime Dose Tracking * Chemical Lifetime Dose Automatic Entry Manual Entr y Fluoro Time 0.355 minutes 0.355 minutes 0 minutes Air kerma at the reference point (Ka,r) 2.78 mGy 2 .78 mGy 0 mGy
--- OUTSIDE RECORDS SUMMARY | 2024-06-26 01:35 | XMS_ITS | Encounter Summary ---
Author Organization [facility] Address [address] [place] [address] Phone Care Team Providers Care Shipping Lead Name Role Phone Elvis Lopez MD Primary Care Provider [phone] Catherine Todd MD Unavailable Encounter Details Date Type Department Care Team (Late st Contact Info) Description 12/06/[address] 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 Gender Identity Female 06/07/2020 11:17 AM FIELD IRONWORKER Sexual Orientation Straight 06/07/2020 11 :17 AM FIELD IRONWORKER documented as of this encounter Plan of Treatment Not on file documented as of this encounter Visit Diagnoses Not on filedocumented in this encounter Care Teams Shipping Lead Relationship Specialty Start Date End Date Elvis Lopez MD [address] [facility] [place] [address] PCP - General Family Medicine 02/04/23 Catherine Todd MD [address] [employer] [place] [address] Medical Oncologist/Auto Service Mechanic Hematology 08/27/23 documented as of this encounter
--- OUTSIDE RECORDS SUMMARY | 2024-06-26 01:35 | XMS_ITS | Encounter Summary ---
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 Name Role Phone Elvis Lopez MD Primary Care Provider [phone] Catherine Todd MD Unavailable [phone] Reason for Referral * Diagnostic Imaging (Routine) - Closed Specialty Diagnoses / Procedures Referred By Contdusty t Referred To Contact Radiology Diagnoses MGUS (monoclonal gammopathy of unknown significance) Procedures IR Bone marrow biopsy and aspiration Catherine Todd MD [address] [employer], [address] [address] Phone: tel: fax: [address] [phone] Referral ID Status Reason Start Date Expiration Date Visits Re quested Visits Authorized [id number] Closed 10/18/2023 11/16/2024 1 1 Reason for Visit * Diagnostic Imaging (Routine) - Closed Specialty Diagnoses / Procedures Referred By Contac t Referred To Contact Radiology Diagnoses MGUS (monoclonal gammopathy of unknown significance) Procedures IR Bone marrow biopsy and aspiration Catherine Todd MD [address] [employer], [address] [address] Phone: tel: fax: [address] [phone] Referral ID Status Reason Start Date Expiration Date Visits Re quested Visits Authorized [id number] Closed 10/18/2023 11/16/2024 1 1 Encounter Details Date Type Department Care Team (Late st Contact Info) Description 11/01/2023 12:55 PM CDT - 11/01/2023 11:59 PM CDT Hospital Encounter [facility] Radiology [address] [place] [address] Sameer Mosqueda MD PhD [id number] [place] [address] Beltran Clifford MD [id number] [place] [address] MGUS (monoclonal gammopathy of unknown significance) Discharge Disposition: Discharge to home or self care Social History Tobacco Use Types Packs/Day Years [...] on file Legal Sex Female 3:01 AM 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 Gender Identity Female 06/07/2020 11:17 AM 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 Sexual Orientation Straight 06/07/2020 11 :17 AM 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 documented as of this encounter Last Filed Vital Signs Vital Sign Reading Time Taken Comments Blood Pressure 143/63 11/01/2023 2:20 PM CDT Pulse 75 11/01/2023 2:20 PM CDT Temperature 36.4 ??C (97.5 ??F) 11/01/2023 1:10 PM CD T Respiratory Rate 10 11/01/2023 1:50 PM CDT Oxygen Saturation 93% 11/01/2023 2:20 PM CDT Inhaled Oxygen Concentration - - Weight 94.3 kg (208 lb) 11/01/2023 1:10 PM CDT Height 172.7 cm (5' 8 ) 11/01/2023 1:10 PM CDT Body Mass Index 31.63 11/01/2023 1:10 PM CDT documented in this encounter Discharge Instructions * Discharge Instructions* Emily Cobos PA - 11/01/2023 1:58 PM CDT [facility] Outpatient Discharge Instructions/Note Diagnosis: The encounter diagnosis was MGUS (monoclonal gammopathy of unknown significance). Procedure:IR BONE MARROW BIOPSY AND ASPIRATION Limitations: [] No lifting greater than 5 pounds with [] Right [] Left arm for 7 days. [x] Light physical activity for 48 hours (2 days). [] Do not lift more than 10 pounds for 48 hours (2 days). [] You received medication that may affect your judgement. Stay with a responsible person today. Do not drive, operate machinery, make any legal or important decisions, or drink alcohol until tomorrow. No smoking unless another adult is present. Other Diet: You may resume your previous diet. Medication: [x] Usual medications; check with your regular doctor for any questions. Do not take any new pain medicine, sleeping pills or sedatives unless approved by your doctor. [] Prescriptions given for: [x] Blood thinners: If you take aspirin 81mg or 325mg, you may resume the same day of biopsy. If you take warfarin (Coumadin), you may resume 12 hours after biopsy. If you take clopidogrel (Plavix), you may resume the same day of biopsy. If you take ticlopidine (Ticlid), you may resume 24 hours after biopsy. If you take enoxaparin (Lovenox): 30-40 mg every day or BID for prophylaxis, you may resume 6 hours after biopsy. >40 mg for therapy, you may resume 24 hours after biopsy. If you take rivaroxaban (Xalrelto), you may resume 48 hours after biopsy. If you take apixaban (Eliquis), you may resume 48 hours after biopsy. You may resume all other medications the same day of biopsy. Procedure Site Care: [] teaching sheet given [x] Skin glue was used to close your incision. See below. [] The bandage or dressing that was placed on the biopsy site may be removed the next day. [x] Keep site clean and dry. [x] You may bathe or shower tomorrow. [x] Do not submerge in bath, pool, or hot tubs. [] Change the dressing daily and if it becomes wet or dirty. [] Cover entire area with plastic and tape down edges before showering to keep site clean and dry. Results: [] The biopsy will be read within 5-7 days. Special studies may take longer. Please allow at least a week before calling for results. Follow up care: [] Follow up with [facility] Radiology in 1 week with XRs on same day, prior to appointment. Nurse Coordinators will call to schedule the appointment. Please come to: [] 3rd Floor [facility] [] 10th floor [facility] [] [facility] [] [facility] To contact an [facility] at [facility] or [facility] call [phone] Wednesday through Wednesday from 7:30am-4:30pm. After hours emergencies, please contact: [phone]. Questions: During regular office hours, call your referring physician. Special instructions: Please call [facility] Radiology for any procedure related questions or problems including: Extreme swelling or bruising at the site. Unusual drainage or bleeding from procedure site. Fever of 101.5 F for more than 24 hours. Procedure related pain. If vomiting occurs more than 3 times, contact the residential carpenter fundraising consultant at [phone] within 24 hours after surgery. Contact your primary care physician 24 hours after surgery. For emergencies, go to the closest emergency room if you have any of the following: SEVERE PAIN WEAKNESS OR FAINTNESS SHORTNESS OF BREATH OR CHEST PAIN Skin Adhesive Care WHAT YOU NEED TO KNOW: Skin adhesive is medical glue used to close wounds. It is a substitute for hector and stitches. Skin adhesive wound closures take less time and do not require anesthesia. You have less pain and a lower risk of infection than with hector or stitches. Skin adhesive will fall off after the wound is healed. DISCHARGE INSTRUCTIONS: Self-care: Keep your wound clean and dry for 1 to 5 days. You can shower 24 hours after the skin adhesive is applied. Lightly pat your wound dry after you shower. Do not soak your wound in water, such as in a bath or hot tub. Do not scrub your wound or pick at the adhesive. This can make your wound reopen. Do not apply ointments to your wound. These include antibiotic and other ointments that contain petroleum jelly. These products will remove skin adhesive and reopen your wound. documented in this encounter Medications at Time of Discharge acetaminophen ER (Tylenol Arthritis Pain) 650 mg 8 hr tablet Take 1 tablet (650 mg total) by mouth every 8 (eight) hours as needed for pain atorvastatin (LIPITOR) 20 mg tablet Take 1 tablet (20 mg total) by mouth nightly at bedtime 01/22/2023 eszopiclone (LUNESTA) 3 mg tablet Take by mouth nightly as needed 06/23/2021 ezetimibe (ZETIA) 10 mg tablet TK 1 T PO QD 3 02/27/2019 fluticasone (FLONASE) 50 mcg/actuation nasal spray gabapentin (NEURONTIN) 600 mg tablet 12/02/2020 glucosam velasquez nss-tqeyzfnbc-W- [place] 602-800-00-3 mg capsule hydroCHLOROthiaz angela (HYDRODIURIL) 25 mg tablet TK 1 T PO QD 2 07/12/2018 levothyroxine (SYNTHROID, LEVOTHROID) 50 mcg tablet TK 1 T PO QD 3 05/27/2018 lidocaine (LIDODERM) 5 % APPLY 1 PATCH TOPICALLY TO THE SKIN DAILY. LEAVE ON MOST PAINFUL AREA FOR UP TO 12 HOURS 10/20/2022 metoprolol XL (TOPROL-XL) 100 mg 24 hr tablet TK 1 T PO D 3 06/27/2018 montelukast (SINGULAIR) 10 mg tablet TK 1 T PO D 3 08/18/2018 MULTIVITAMIN ORAL Take by mouth omega 0-ktg-fue-fish oil (Fish OiL) 100-160-1,000 mg capsule Take by mouth omeprazole (PriLOSEC) 20 mg capsule Take 1 capsule (20 mg total) by mouth daily ramipriL (ALTACE) 10 mg capsule Take 1 capsule (10 mg total) by mouth daily 12/11/2022 Savella 25 mg tablet TAKE 1 TABLET BY MOUTH TWICE DAILY FOR FIBROMYALGIA 12/23/2022 triamcinolone (KENALOG) 0.1 % cream APPLY TOPICALLY TO THE AFFECTED AREA TWICE DAILY 10/20/2022 TURMERIC ORAL Take by mouth amLODIPine (NORVASC) 2.5 mg tablet TK 1 T PO QD 8 08/06/2018 4 aspirin 81 mg tablet Take 1 tablet (81 mg total) by mouth every other day 4 cholecalciferol (VITAMIN D-3) 50,000 unit capsule TAKE ONE CAPSULE BY MOUTH EVERY 2 WEEKS 11/18/2021 4 docosahexanoic acid/epa (FISH OIL ORAL) Take by mouth 4 vitamin E (AQUASOL E) 400 unit capsule 4 documented as of this encounter Discharge Disposition Disposition Code Departure Means Destination Discharge to home or self care documented in this encounter H&P Notes * Emily Cobos PA - 11/01/2023 2:00 PM CDT History and Physical Subjective Patient is a 82 y.o. female with chief complaint of back pain, fibromyalgia, HTN, HLD, - hx of MGUS. She is here today for bone marrow biopsy and aspiration. HPI: Pt is here today for bone marrow biopsy/aspiration. Past Medical History: Diagnosis Date Age-related nuclear [...] BLADDER REPAIR COLONOSCOPY FOOT SURGERY HYSTERECTOMY TONSILLECTOMY/ADENOIDECTOMY (Not in a hospital admission) Allergies Allergen Reactions Tramadol-Acetaminophen Swelling Adoxa [Doxycycline [...] Other (See comments) Sleeps all day Extendryl [Ijochyjxiowjfwjs-Qn-Iycpbspalq] Other (See comments) Hard to awaken S[place]ane Other (See comments) Upset stomach Social History Tobacco Use Smoking status: Never [...] cancer Brother Heart failure Brother Review of Systems: Review of systems per HPI and otherwise all other systems are negative Objective Vitals: Arrival Vitals Temp Pulse Resp BP SpO2 Temp src Heart Rate Source Patient Position BP Location FiO2 (%) 24hr Min/Max: No data recorded Most Recent : There were no vitals filed for this visit. No intake/output data recorded. No intake/output data recorded. Physical exam: No exam performed today, refer to OV from BMT visit 08/2023 . Lab/Radiology/Diagnostic Review: Laboratory review: most recent CBC, CMP Assessment /Plan Active Problems: No Active Problems: There are no active problems currently on the Problem List. Please update the Problem List and refresh. documented in this encounter Miscellaneous Notes * Pre-Sedation Documentation - Beltran Clifford MD - 11/01/2023 2:00 PM CDT Airway Assessment: Normal. Patient is candidate for appropriate sedation: moderate (conscious sedation). Patient's ASA score is: 2 - A patient with mild systemic disease. * Post-Procedure Note - Emily Cobos PA - 11/01/2023 2:00 PM CDT Radiology Brief Post Procedure Note Attending: Dr Sameer Mosqueda Digital Learning Platforms Manager: Emily Benavides PAC Sedation/Anesthesia: Min Sedation Pre-Op/Pre-Procedure Diagnosis: MGUS Post-Op/Post-Procedure Diagnosis: same Procedure Performed: bone marrow biopsy and aspiration Procedure Findings: see dictation Complications: None Estimated Blood Loss: < 30 ml Specimens: core sample and aspiration Condition: Stable Full report to follow. * Pre-Procedure Note - Emily Cobos PA - 11/01/2023 2:00 PM CDT Radiology Short Sedation Form Indication: hx of MGUS Planned Procedure: bone marrow biopsy/aspiration Planned Sedation/Anesthesia: minimal sedation Adjunctive Procedures: NONE History of Sedation/Anesthesia Complications: No See H&P dated 11/01/23 for details of history, review of systems, physical exam, labs, imaging data and assessment. Changes in patient condition since prior assessment: none Most Recent Vitals: There were no vitals filed for this visit. Airway assessment: normal ASA Score: ASA 2 - Patient with mild systemic disease with no functional limitations NPO time: after midnight Benefits, risks and alternatives of procedure and planned sedation have been discussed with the patient and/or their national sales representative. All questions answered and they agree to proceed. documented in this encounter Plan of Treatment Not on file documented as of this encounter Procedures Procedure Name Priority Date/Time Associated Diagnosis Comments IR BONE MARROW BIOPSY AND ASPIRATION Schedule Routine, Read Routine (OP Routine) 11/01/2023 1:55 PM CDT MGUS (monoclonal gammopathy of unknown significance) CYTOGENETICS TRACKING ORDER Routine 11/01/2023 1:30 PM CDT FLOW LEUKEMIA/LYMPHOMA Timed 11/01/2023 1:30 PM CDT SURGICAL PATHOLOGY Routine 11/01/2023 1: 30 PM CDT MGUS (monoclonal gammopathy of unknown significance) CYTOGENETICS Routine 11/01/2023 1:11 PM CDT documented in this encounter Results * IR Bone marrow biopsy and aspiration (11/01/2023 1:55 PM CDT) Anatomical Region Laterality Modality Body Radio Fluoroscop y 11/01/2023 2:26 PM CDT Impressions 11/01/2023 5:41 PM CDT 1. ?? Left iliac bone marrow biopsy and aspiration under fluoroscopic guidance. ??The bone marrow aspirate was submitted to hematopathology, and the bone marrow core biopsy sample to surgical pathology. Dictated by: Emily Cobos PA-C The radiology attending physician has personally reviewed this study, and had reviewed and/or edited this written report and agrees with it. Electronically signed by: Sameer Mosqueda MD, PHD Narrative 11/01/2023 5:41 PM CDT EXAMINATION: Left iliac bone marrow biopsy and aspiration under fluoroscopic guidance HISTORY: History of MGUS ATTENDING PRESENCE: Dr. Sameer Mosqueda MD, PHD, the attending radiologist, was present from the beginning to the end of the procedure. SEDATION: Conscious sedation was administered under the attending physician's direction and continuous monitoring by a trained nurse specialist who was independent from those actually performing the procedure. ??Total monitored sedation time was 15 minutes. During the course of the procedure, the patient received Fentanyl 100 mcg and Versed 2 mg IV. TECHNIQUE: ??The risks, benefits and alternatives were discussed and informed consent was obtained. ??Prior to beginning the procedure, [place] Protocol was performed to confirm the patient's identity and the planned procedure. Sterile barriers used during the procedure included cap, mask, hand hygiene, sterile gloves, sterile gown, and sterile drape. ??Chloraprep was used for cutaneous antisepsis. The patient was placed prone on the fluoroscopy table. ??The Left posterior iliac was localized with fluoroscopy. 10 mL of a 1:1 mixture of 0.25% bupivacaine and 1% lidocaine was injected for subcutaneous and periosteal anesthesia. ?? An 11 gauge BD trek needle was inserted into posterior iliac utilizing fluoroscopic guidance. Appropriate needle position was confirmed with fluoroscopy. 2 mL in each of ??4 tubes of bone marrow aspirate was obtained for hematopathology. An additional 3 mg tube collected for clot. A bone marrow core specimen of 2 cm in length was obtained. ??The needle was removed. Dermabond was placed at the needle entry. Complication: none Type: n/a ESTIMATED BLOOD LOSS: <30 mL CONDITION: Stable condition. DISCHARGED TO: Home FINDINGS: Fluoroscopic images demonstrate appropriate needle position in the left iliac bone. Procedure Note Sameer Mosqueda MD PhD - 11/01/2023 EXAMINATION: Left iliac bone marrow biopsy and aspiration under fluoroscopic guidance HISTORY: History of MGUS ATTENDING PRESENCE: Dr. Sameer Mosqueda MD, PHD, the attending radiologist, was present from the beginning to the end of the procedure. SEDATION: Conscious sedation was administered under the attending physician's direction and continuous monitoring by a trained nurse specialist who was independent from those actually performing the procedure. Total monitored sedation time was 15 minutes. During the course of the procedure, the patient received Fentanyl 100 mcg and Versed 2 mg IV. TECHNIQUE: The risks, benefits and alternatives were discussed and informed consent was obtained. Prior to beginning the procedure, [place] Protocol was performed to confirm the patient's identity and the planned procedure. Sterile barriers used during the procedure included cap, mask, hand hygiene, sterile gloves, sterile gown, and sterile drape. Chloraprep was used for cutaneous antisepsis. The patient was placed prone on the fluoroscopy table. The Left posterior iliac was localized with fluoroscopy. 10 mL of a 1:1 mixture of 0.25% bupivacaine and 1% lidocaine was injected for subcutaneous and periosteal anesthesia. An 11 gauge BD trek needle was inserted into posterior iliac utilizing fluoroscopic guidance. Appropriate needle position was confirmed with fluoroscopy. 2 mL in each of 4 tubes of bone marrow aspirate was obtained for hematopathology. An additional 3 mg tube collected for clot. A bone marrow core specimen of 2 cm in length was obtained. The needle was removed. Dermabond was placed at the needle entry. Complication: none Type: n/a ESTIMATED BLOOD LOSS: <30 mL CONDITION: Stable condition. DISCHARGED TO: Home FINDINGS: Fluoroscopic images demonstrate appropriate needle position in the left iliac bone. IMPRESSION: 1. Left iliac bone marrow biopsy and aspiration under fluoroscopic guidance. The bone marrow aspirate was submitted to hematopathology, and the bone marrow core biopsy sample to surgical pathology. Dictated by: Emily Cobos PA-C The radiology attending physician has personally reviewed this study, and had reviewed and/or edited this written report and agrees with it. Electronically signed by: Sameer Mosqueda MD, PHD us Catherine Todd MD IMG IR PROCEDURES Final Res ult * Surgical pathology (11/01/2023 1:30 PM CDT) Tissue (Bone marrow) 11/01/2023 1:30 PM CDT Comment:Left Iliac Bone Yung ow Biopsy Narrative PATHOLOGY [facility] - 11/08/2023 10:13 AM CDT EPIC results best viewed via link to PDF [facility] of Surgical Pathology [address] [facility] [place] [address] Note to Patients: This report may contain a detailed description of human tissue sent by a health care provider to the laboratory for pathologic evaluation. The content of this report is essential for diagnosis and may provide important critical findings. This information may be unfamiliar to patients to review without a medical professional present. It is advised that the patient review this report in the presence of a health care provider who can answer questions and explain the details. SURGICAL PATHOLOGY REPORT FINAL WITH ADDENDUM Patient Name: ?? RIGOBERTO BELL Gender: ??F : ??1940 (Age: 82) Address: ??[address] [facility], [place], [place] ??[address] Hospital #: ??[id number] Taken:11/01/2023 Received:11/01/2023 Reported: 11/08/2023 Patient Type: [facility] Ancillary ?? Service: Laboratory Location: Physician(s): ??Cathernie Todd M.D. Diagnosis: Bone marrow, left posterior iliac crest, aspirate, clot section, and core biopsy: ? - Mildly hypercellular marrow with maturing trilineage hematopoiesis and involvement by plasma cell neoplasm ? - See comment [facility]/11/03/2023 13:26 By this signature, I attest that the above diagnosis is based upon my personal examination of the slides(and/or other material indicated in the diagnosis). Eva Ruiz M.D., Ph.D. Report Electronically Reviewed and Signed Out By ??Eva Ruiz M.D., Ph.D. 11/08/2023 10:13:12 Diagnosis Comment Correlation with clinical, laboratory, cytogenetic and radiologic findings is needed for full evaluation. The case reviewed by Dr. Vickie Lambert who agrees with the final diagnosis. Microscopic Description and Comment: For details about peripheral blood smear, bone marrow aspirate and core biopsy, please see attached synoptic report. For flow cytometric findings, see complete report below Immunohistochemistry and in situ hybridization studies (with appropriate controls) are performed for further evaluation of plasma cells in the tissue context. Immunostain for CD138 reveals that IM126-hswesaog plasma cells co-expressing CD117 account for approximately 20% of the overall cellularity and exhibit kappa light chain restriction, as demonstrated by in situ hybridization studies for kappa and lambda light chains (approximate kappa to lambda ratio greater than 10 to 1). Immunostain for CD34 reveals that CP58-eqrtsypk blasts account for less than 5% of the overall cellularity.. Immunostain for E-cadherin highlights increased early erythroid elements. Immunostains for CD3 and CD20 reveal that scattered lymphocytes and lymphoid aggregates are composed of a mixture of CD3-positive T-cells and EN92-twwvwssg B-cells, with T- cell predominance. Elissa Carpio MD, PhD History: The patient is an 82-year-old woman presenting with monoclonal gammopathy of unknown significance. ??Operative procedure: Bone marrow biopsy. Specimen(s) Received: A: Bone marrow biopsy, left posterior iliac crest B: Bone Marrow Clot - BJ C: Bone marrow, left aspirate for flow cytometry Gross Description: Received in two formalin jars labeled with the patient's identifiers. A. ??Received in formalin, labeled left iliac bone marrow biopsy and consists of three red cores of bone with attached hemorrhagic material measuring 0.6-1.1 cm each in length by 0.2-0.3 cm in diameter. ?? Labeled A1. ??EDTA decalcification.. Jar 0. B. ??Received in formalin, labeled left iliac bone marrow biopsy and consists of a 2.7 cm in length by 1.5 cm in diameter cylindrical fragment of ??hemorrhagic material. ?? Labeled B1. Jar 1. ?? sxst/11/01/2023 16:22 PA(s): Pauly Porter ? CBC: ?There was no corresponding CBC report for review ? Peripheral blood smear (Magana-Giemsa): ?Not received ? Bone marrow aspirate smear (Magana-Giemsa stain): ? Quality: ?Dilute ? Spicules: ?None ? Marrow cellularity: ?Not evaluable ? Myeloid maturation: ?Normal ? Erythroid maturation: ?Sparse maturing forms ? Myeloid/Erythroid Ratio: ?Increased ? Megakaryocyte number: ?Decreased ? Megakaryocytic maturation: ?too few to evalaute ? Lymphocytes: ?Normal ? Plasma cells: ?occasional, scattered ? Iron: ?Aspicular aspirate insufficient for interpretation/non-contributory ? Differential count: ?Total # of Cells Counted:100 ?Blasts: 0 ?Promyelocytes: 0 ?Myelocytes+Metamyelocytes:6 ?Bands+Neutrophils:64 ?Eosinophils: 0 ?Basophils: 0 ?Plasma cells: 5 ?Lymphocytes: 8 ?Monocytes: 7 ?Erythroids: 10 ? Bone marrow core biopsy (decalcified, H&E and Leder stains): ?Left, iliac crest ? Quality: ?Adequate ? Cellularity: ?30-40% ?variable ? Myeloid maturation: ?Normal ? Erythroid maturation: ?Normal ? The Leder stain shows that the Myeloid/Erythroid Ratio is: ?Within normal limits ? Megakaryocyte number: ?Within normal limits ? Megakaryocytic maturation: ?Normal ? The Leder stain is used to assess for lymphoid aggregates: ?None ? Plasma cells: ?Increased ? Reticulin and Trichrome stains show: ?Mild fibrosis (MF-1) ? CLOT SECTION: ?The bone marrow clot section including Leder and H&E stains are: ?Consist of clotted blood with minimal evaluable marrow ? By this signature, I attest that the above diagnosis is based upon my personal examination of the slides(and/or other material). Addenda/Procedures Flow Cytometry Ordered:11/01/2023Status:Signed OutFlow Cytometry Complete:11/03/2023y:Eva Ruiz M.D., Ph.D.Flow Cytometry Signed Out: 11/04/2023 Diagnosis Bone marrow, left posterior iliac crest, aspirate for flow cytometry: ? - Clonal plasma cell population (~2-3% of total events) identified by flow cytometry ? - No significant increase in blast-gated events identified by flow cytometry ? - No clonal B-cell population identified by flow cytometry ? - No atypical T-cell population identified by flow cytometry ? - See comment ? Comment Correlation with concurrent bone marrow biopsy and aspirate findings is needed for full evaluation. Specimen quality: adequate Flow cytometry identifies an abnormal CD138+ plasma cell population. Antigens expressed: cyKappa, CD38, CD138, CD56 (dim) Antigens not expressed: CD19, CD20, cyLambda Flow cytometry analysis shows the CD45 dim-gated events are 8% of overall cellularity of the specimen, with only a small subset (~1% of total events) positive for expression of CD34 and CD117, consistent with myeloblasts. ??Blast-gated events include population of IB72-ihvzzogl LL04-eevpowmj events, most consistent with hematogones. Monocyte-gated events account for 2% of overall cellularity and express CD13, CD33, CD64, and CD14. ??Lymphocyte-gated events account for 22% of the overall cellularity and include a small polytypic CD19+CD20+ B-cell population (18% of lymphocytes) with no significant co-expression of CD5 or CD10. ??CD3+ T-cells (comprising 73% of lymphocytes) show no significant loss of chatterjee T-cell antigens and have a mildly increased CD4 to CD8 ratio. There is a small population of CD56+ events (9% of lymphocytes) consistent with natural killer cells. A Magana-Giemsa stained cytospin from the flow cytometry specimen was examined for internal water quality analyst purposes. Flow cytometry was performed using antibodies to the following cellular antigens: CD45, CD34, CD19, CD20, Mylo, Lambda, CD10, CD5, CD200, CD38, CD2, CD3, CD4, CD7, CD8, CD56, TCR-GD, CD16, CD13, CD14, CD64, HLA-DR, CD11b, CD15, CD123, CD117, CD33. Total antigens analyzed: 27 Flow cytometry was performed using antibodies to the following cellular antigens: CD45, CD19, CD20, cyKappa, cyLambda, CD38, CD138, CD56. Total antigens analyzed: 8 ?? By this signature, I attest that the above diagnosis is based upon my personal examination of the slides(and/or other material indicated in the diagnosis). Eva Ruiz M.D., Ph.D.Report Electronically Reviewed and Signed Out By ??Eva Ruiz M.D., Ph.D. ??11/04/2023 12:09:42Elissa Carpio MD, PhD ?? The performance characteristics of some immunohistochemical stains, fluorescence in-situ hybridization tests and immunophenotyping by flow cytometry cited in this report (if any) were determined by the Surgical Pathology and Flow Cytometry Departments at [facility] as part of an ongoing water quality analyst program and in compliance with federally mandated regulations drawn from the Clinical Laboratory Improvement Act of 1988 (CLIA '88). ??Some of these tests rely on the use of analyte specific reagents and are subject to specific labeling requirements by the US Food and Drug Administration. ??Such diagnostic tests may only be performed in a facility that is certified by the Department of Health and Human Services as a high complexity laboratory under CLIA '88. ??The FDA has determined that such clearance or approval is not necessary. ??This test is used for clinical purposes. ??It should not be regarded as investigational or for research. ??Nevertheless, federal rules concerning the medical use of analyte specific reagents require that the following disclaimer be attached to the report: This test was developed and its performance characteristics determined by the Surgical Pathology and Flow Cytometry Departments of [facility]. ??It has not been cleared or approved by the U. S. Food and Drug Administration. IMAGES AND SCANNED DOCUMENTS, IF INCLUDED, ONLY VIEWABLE IN PDF VERSION OF REPORT Catherine Todd MD LAB PATHOLOGY ORDERABLES Fi nal Result PATHOLOGY [facility] [address]rd Floor [place], [place] [phone] * Cytogenetics Specimen Tracking Bone marrow (11/01/2023 1:30 PM CDT) Pathologist [facility] Cytotenetics Tracking Order Received Bone marrow 11/01/2023 1:30 PM CDT 11/01/2023 4:11 PM CDT Narrative [facility] - 11/02/2023 8:39 AM CDT Please read the Cytogenetics Epic requisition for specimen collection requirements. Catherine Todd MD LAB BODY FLUIDS AND STOOLS ORDERABLES Final Result Performing Organization Address [facility]/ZIP Co de Phone Number [facility] Department [place] [address] * Flow Leukemia/Lymphoma Bone marrow (11/01/2023 1:30 PM CDT) Pathologist [facility] Magana Stain Test Completed Leukemia/Lymp vipul Result See separate Surgical Pathology report. [facility] Bone marrow 11/01/2023 1:30 PM CDT 11/01/2023 4:37 PM CDT Catherine Todd MD LAB PATHOLOGY ORDERABLES Fi nal Result Performing Organization Address [facility] Co de Phone Number [facility] Department [place] [address] * Cytogenetics Bone marrow (11/01/2023 1:11 PM CDT) Bone marrow (Bone Marrow Biopsy) 11/01/2023 1:11 PM CDT 11/01/2023 1:11 PM CDT Narrative [facility] - CYTOGENETICS - 11/04/2023 8:15 PM CDT EPIC results best viewed via link to PDF [facility] Department of Pathol [address] [place] [id number] ? Patient Information ? Name: ??RIGOBERTO BELL ? Gender: ??F ? : ??1940 (Age: 82) ? Tissue: ??Bone Marrow w/ FISH ? Visit Information ? Hospital #: ? [id number] ? Facility: ? [facility] ? Service: ? [facility] ? Location: ? [facility] ? Patient Type: ? [facility] ? Specimen Information: ? Culture #: ??[id number] ? Date Collected: ??11/01/2023 ? Date Accessioned: ??11/02/2023 ? Date Ordered: ??11/01/2023 ? Physician(s): ? Catherine Todd M.D. ? Processing: ? CD138+ sorted plasma cells Indication: ? MGUS Specimen Quality: ? Low cell count Insufficient cells: ??FISH: Limited MM panel No Metaphases - Chromosome Analysis CLINICAL REPORT FLUORESCENCE IN-SITU HYBRIDIZATION [FISH] Karyotype: N/A nuc rafat(PVMV5r7,IGHx4)[26/200]/(XHRW3e2,IGHx3)[25/200],(CCND1,IGH)x4[86/200]/(CCND1x 4,IGH x3)[48/200], (IGHx3,MAFx2)[45/200]/(IGHx4,MAFx2)[21/200],(TP53,D17Z1)x1[23/200]/(TP53x1,D17Z1 x2)[2 /200] Diagnosis: CHROMOSOME ANALYSIS: ?NO METAPHASES AVAILABLE FOR ANALYSIS ? LIMITED MM FISH PANEL - See NOTE ABNORMAL FISH FINDINGS: ?MONOSOMY OF FGFR3 (4p) - 13% ? TETRASOMY OF CCND1 (11q) - 67% ? TRISOMY OF IGH (14q) - 19.67% ? TETRASOMY OF IGH (14q) - 22.17% ? MONOSOMY 17 (TP53,D17Z1) - 11.5% ?DELETION OF TP53 (17p) - 10.5% ?NO EVIDENCE OF IGH::FGFR3, IGH::CCND1, OR IGH::MAF ? REARRANGEMENTS INTERPRETATION: Chromosome analysis could not be performed on this specimen due to an insufficient white blood cell count. The entire specimen was used for FISH analysis as priority testing in accordance with the [facility] Cytogenomics Laboratory protocol. FISH analysis was performed with a panel of [employer] probes for MM and is interpreted as ABNORMAL for the FGFR3, CCND1, IGH and TP53 probes. 1) FISH evaluation for an IGH::FGFR3 rearrangement was performed on nuclei with the LSI IGH::FGFR3 Dual Color, Dual Fusion Translocation Probe ([employer] for FGFR3 at 4p16 and IGH at 14q32 and is interpreted as ABNORMAL, although an IGH::FGFR3 rearrangement was not detected. Two abnormal hybridization patterns were detected: a) ??One FGFR3 hybridization signal and four IGH hybridization signals were observed in 26/200 nuclei, indicative of monosomy for the corresponding region on chromosome 4 and tetrasomy for the corresponding region on chromosome 14. This value exceeds the normal range (up to 1%) established for this probe in the Clinical Genomics Laboratory at [facility]. 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 This value exceeds the normal range (up to 1%) established for this probe in the Clinical Genomics Laboratory at [facility]. 3) FISH evaluation for an IGH::CCND1 rearrangement was performed on nuclei with the LSI IGH::CCND1 Dual Color, Dual Fusion Translocation Probe ([employer] for CCND1 at 11q13 and IGH at 14q32 and is interpreted as ABNORMAL, although an IGH::CCND1 rearrangement was not detected. Two abnormal hybridization patterns were detected: a) Four CCND1 hybridization signals and four IGH hybridization signals were observed in 86/200 nuclei, indicative of tetrasomy for the corresponding regions on chromosomes 11 and 14. This value exceeds the normal range (up to 1%) established for this probe in the Clinical Genomics Laboratory at [facility]. 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 This value exceeds the normal range (up to 1%) established for this probe in the Clinical Genomics Laboratory at [facility]. 5) FISH evaluation for an IGH::MAF rearrangement was performed on nuclei with the LSI IGH::MAF Dual Color, Dual Fusion Translocation Probe ([employer] for IGH at 14q32 and MAF at 16q23 and is interpreted as ABNORMAL, although an IGH::MAF rearrangement was not observed. Two abnormal hybridization patterns were detected: a) ??Three IGH hybridization signals and two MAF hybridization signals were observed in 45/200 nuclei, indicative of trisomy for the corresponding region on chromosome 14. This value exceeds the normal range (up to 1%) established for this probe in the Clinical Genomics Laboratory at [facility]. 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 This value exceeds the normal range (up to 1%) established for this probe in the Clinical Genomics Laboratory at [facility]. 6) FISH evaluation for a TP53 deletion was performed on nuclei with the LSI TP53 Dual Color Probe ([employer] for TP53 at 17p13.1 and the control D17Z1 at 17p11.1-q11.1 and is interpreted as ABNORMAL. Two abnormal patterns were detected: a) One TP53 hybridization signal and one D17Z1 control hybridization signal were observed in 23/200 nuclei, which exceeds the normal range (up to 2%) established for this probe in the Clinical Genomics Laboratory at [facility]. b) One TP53 hybridization signal and two D17Z1 control hybridization signals were observed in 21 nuclei, which exceeds the normal range (up to 2.7%) established for this probe in the Clinical Genomics Laboratory at [facility]. PLEASE NOTE: Due to paucity of CD138+ sorted plasma cells only four of the six Multiple Myeloma FISH panel probes were analyzed. The CKS1B/CDKN2C and [id number]/LAMP1 probe sets were not performed. The FISH findings must be interpreted within the context of the pathologic and clinical findings. Follow-up evaluation is recommended. This test was developed and its performance characteristics determined by [facility]. It has not been cleared or approved by the FDA. The laboratory is regulated under CLIA as qualified to perform high-complexity testing. This test is used for clinical purposes. It should not be regarded as investigational or for research. Chromosome analysis and Fluorescence In Situ Hybridization (FISH) analysis are performed using the [employer] Imaging System. Report Electronically Reviewed and Signed Out By Leena Huntley, PhD, FACMGDate Reported: ??4Associate Professor, Division of Genomic & Molecular Pathology Catherine Todd MD LAB GENETIC TESTING Final R esult [facility] - CYTOGENETICS [address] [place] [address] documented in this encounter Visit Diagnoses Diagnosis MGUS (monoclonal gammopathy of unknown significance) Monoclonal paraproteinemia documented in this encounter Administered Medications Inactive Administered Medications - up to 3 most recent administrations Medication Order MAR Action Action Date Dose Rate Site BUPivacaine (MARCAINE) 0.25 % (2.5 mg/mL) preservative free injection As needed, Starting on 11/01/23 at 1341, Intra-Procedure (IR) Given 11/01/2023 1:41 PM CDT 5 mL Back fentaNYL (SUBLIMAZE) preservative free injection intravenous, As needed, Starting on Wed11/01/23 at 1336, Intra-Op Given 11/01/2023 1:42 PM CDT 50 mcg Given 11/01/2023 1:36 PM CDT 50 mcg lidocaine (PF) (XYLOCAINE) 10 mg/mL (1 %) preservative free injection As needed, Starting on Wed11/01/23 at 1341, Intra-Procedure (IR), Indications: Administration of Local AnesthesiaIndications:Administration of Local Anesthesia Given 11/01/2023 1:41 PM CDT 5 mL B ack midazolam (VERSED) 1 mg/mL injection As needed, Starting on Wed11/01/23 at 1336, Intra-Op Given 11/01/2023 1:42 PM CDT 1 mg Given 11/01/2023 1:36 PM CDT 1 mg documented in this encounter Orders Discharge Count Last Ordered Date First Orde red Date DISCHARGE PATIENT 1 11/01/2023 documented in this encounter Care Teams Steel Rule 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
--- OUTSIDE RECORDS SUMMARY | 2024-06-26 01:35 | XMS_ITS | Encounter Summary ---
Author Organization [facility] Healthcare Address [address] [place] [address] Care Team Providers Care Wrapper And Preserver Name Role Phone Elvis Lopez MD Primary Care Provider [phone] Catherine Todd MD Unavailable Encounter Details Date Type Department Care Team (Late st Contact Info) Description 12/03/2023 1:15 PM CDT Lab [facility] Lab [address] [place] [address] Multiple myeloma not having achieved remission (CMS/HCC) [...] on file Legal Sex Female 3:01 AM BUCCARO Gender Identity Female 06/07/2020 11:17 AM BUCCARO Sexual Orientation Straight 06/07/2020 11 :17 AM BUCCARO documented as of this encounter Plan of Treatment Pending Results Name Type Priority Associated Diagnoses Date /Time Immunoglobulin Free Light Chains (FLC) New Lab Routine 12/03/2023 1:41 PM CDT documented as of this encounter Procedures Procedure Name Priority Date/Time Associated Diagnosis Comments IMMUNOTYPING Routine 12/03/2023 1:41 PM CDT Multiple myeloma not having achieved remission (CMS/HCC) (HCC) EGFR Routine 12/03/2023 1:41 PM CDT Multiple myeloma not having achieved remission (CMS/HCC) (HCC) DIFFERENTIAL AUTO Routine 12/03/2023 1:4 1 PM CDT Multiple myeloma not having achieved remission (CMS/HCC) (HCC) IMMUNOGLOBULIN FREE LIGHT CHAINS (FLC) NEW Routine 12/03/2023 1:41 PM CDT Multiple myeloma not having achieved remission (CMS/HCC) (HCC) IMMUNOGLOBULIN FREE LIGHT CHAINS Routine 12/03/2023 1:41 PM CDT Multiple myeloma not having achieved remission (CMS/HCC) (HCC) IMMUNE COMPETENCE Routine 12/03/2023 1:4 1 PM CDT Multiple myeloma not having achieved remission (CMS/HCC) (HCC) CBC WITH AUTO DIFFERENTIAL Routine 12/03/2023 1:41 PM CDT Multiple myeloma not having achieved remission (CMS/HCC) (HCC) PROTEIN ELECTROPHORESIS, WITH REFLEX, SERUM Routine 12/03/2023 1:41 PM CDT Multiple myeloma not having achieved remission (CMS/HCC) (HCC) LACTATE DEHYDROGENASE Routine 12/03/2023 1:41 PM CDT Multiple myeloma not having achieved remission (CMS/HCC) (HCC) IGA Routine 12/03/2023 1:41 PM CDT Multiple myeloma not having achieved remission (CMS/HCC) (HCC) IGM Routine 12/03/2023 1:41 PM CDT Multiple myeloma not having achieved remission (CMS/HCC) (HCC) IGG Routine 12/03/2023 1:41 PM CDT Multiple myeloma not having achieved remission (CMS/HCC) (HCC) BETA 2 MICROGLOBULIN SERUM Routine 12/03/2023 1:41 PM CDT Multiple myeloma not having achieved remission (CMS/HCC) (HCC) COMPREHENSIVE METABOLIC PANEL Routine 12/03/2023 1:41 PM CDT Multiple myeloma not having achieved remission (CMS/HCC) (HCC) documented in this encounter Results * (ABNORMAL) Immunoglobulin Free Light Chains (FLC) New (12/03/2023 1:41 PM CDT) Hammon/Lambda ratio [facility] 32.42(H) 0.26 - 1.65 Comment: Interpretive Data The Binding Site FreeLite assay procedure was used. Results from different manufacturers or methods may not be comparable. Serial testing should be performed using the same methods and instrumentation. Current Interpretive Data was last revised on 2023. Testing performed by: [facility], [address] [place]., [address] Hammon free light chain [facility] 16.86(H) 0.33 - 1.94 mg/dL AURELIO Comment: Interpretive Data The Binding Site FreeLite assay procedure was used. Results from different manufacturers or methods may not be comparable. Serial testing should be performed using the same methods and instrumentation. Current Interpretive Data was last revised on 2023. Testing performed by: [facility], [address] [place]., [address] Lambda free light chain [facility] 0.52(L) 0.57 - 2.63 mg/dL AURELIO Comment: Interpretive Data The Binding Site FreeLite assay procedure was used. Results from different manufacturers or methods may not be comparable. Serial testing should be performed using the same methods and instrumentation. Current Interpretive Data was last revised on 2023. Testing performed by: [facility], [address] [place]., [address] Blood 12/03/2023 1:41 PM CDT 12/03/2023 5:25 PM CDT us Catherine Todd MD LAB BLOOD ORDERABLES Final Result Performing Organization Address City/[facility] Co de Phone Number AURELIO [address] [facility] [employer] [place], [place] [id number] * eGFR (12/03/2023 1:41 PM CDT) eGFR 86 >=60 mL/min/1. 73 m2 Comment: Interpretive Data Reference [...] was last reviewed 2021. Testing performed by: [facility], [address] [place] [address], [place]., [address] Blood 12/03/2023 1:41 PM CDT 12/03/2023 1:42 PM CDT us Catherine Todd MD LAB BLOOD ORDERABLES Final Result Performing Organization Address City/[facility] Co de Phone Number AURELIO [address] [facility] [place] [address] * (ABNORMAL) Differential, auto (12/03/2023 1:41 PM CDT) Neutrophil abs 1.4(L) 1.5 - 6.5 K/cumm Comment:Testing performed by : [address] [address] Imm gran abs 0.0 0.0 - 0.1 K/cumm AURELIO Comment:Testing performed by : [address] [address] Lymphocyte abs 1.6 0.8 - 3.3 K/cumm AURELIO Comment:Testing performed by : [address] [address] Monocyte abs 0.5 0.2 - 0.8 K/cumm [facility] Comment:Testing performed by : [address] [address] Eosinophil abs 0.1 0.0 - 0.5 K/cumm [facility] Comment:Testing performed by : [address] [address] Basophil abs 0.0 0.0 - 0.1 K/cumm [facility] Comment:Testing performed by : [address] [address] Neutrophil pct 39.1 % [facility] Comment: Interpretive Data Percent cell count reference ranges are not reported, since discordance with absolute values may lead to misinterpretation of CBC data. Current Interpretive Data was last revised on 2017. Testing performed by: [address] [address] Imm gran pct 0.3 % [facility] Comment: Interpretive Data Percent cell count reference ranges are not reported, since discordance with absolute values may lead to misinterpretation of CBC data. Current Interpretive Data was last revised on 2017. Testing performed by: [address] [address] Lymphocyte pct 44.7 % [facility] Comment: Interpretive Data Percent cell count reference ranges are not reported, since discordance with absolute values may lead to misinterpretation of CBC data. Current Interpretive Data was last revised on 2017. Testing performed by: [address] [address] Monocyte pct 13.4 % [facility] Comment: Interpretive Data Percent cell count reference ranges are not reported, since discordance with absolute values may lead to misinterpretation of CBC data. Current Interpretive Data was last revised on 2017. Testing performed by: [address] [address] Eosinophil pct 2.2 % [facility] Comment: Interpretive Data Percent cell count reference ranges are not reported, since discordance with absolute values may lead to misinterpretation of CBC data. Current Interpretive Data was last revised on 2017. Testing performed by: [address] [address] Basophil pct 0.3 % [facility] Comment: Interpretive Data Percent cell count reference ranges are not reported, since discordance with absolute values may lead to misinterpretation of CBC data. Current Interpretive Data was last revised on 2017. Testing performed by: [address] [address] Blood 12/03/2023 1:41 PM CDT 12/03/2023 1:42 PM CDT Catherine Todd MD LAB BLOOD ORDERABLES Final Result AURELIO [address] [facility] Department [place] [address] * (ABNORMAL) Beta 2 microglobulin, serum (12/03/2023 1:41 PM CDT) Beta 2 Microglobulin, Serum 3.50(H) 1.00 - 2.50 mg/L Comment: Interpretive Data The Felisa Beta-2 microglobulin assay procedure was used. Results from different manufacturers or methods may not be comparable. Serial testing should be performed using the same method. Testing performed by: [address] [address] Blood 12/03/2023 1:41 PM CDT 12/03/2023 4:07 PM CDT us Catherine Todd MD LAB BLOOD ORDERABLES Final Result AURELIO [address] [facility] Department [place] [address] * (ABNORMAL) CBC with auto differential (12/03/2023 1:41 PM CDT) [facility] Signature WBC 3.7(L) 3.8 - 9.9 K/cumm Comment:Testing performed by : [address] [address] Hgb 11.4(L) 11.9 - 15.5 g/dL AURELIO Comment:Testing performed by : [address] [address] Hct 33.5(L) 35.6 - 45.5 % AURELIO Comment:Testing performed by : [address] [address] Plt 229 150 - 400 K/cumm AURELIO Comment:Testing performed by : [address] [address] MPV 9.8 9.1 - 12.3 fL AURELIO Comment:Testing performed by : [address] [address] RBC 3.53(L) 3.90 - 5.20 M/cumm AURELIO Comment:Testing performed by : [address] [address] MCV 94.9 81.3 - 96.4 fL AURELIO Comment:Testing performed by : [address] [address] MCH 32.3 27.1 - 33.3 pg AURELIO [place] Comment:Testing performed by : [address] [address] MCHC 34.0 32.3 - 35.7 g/dL AURELIO Comment:Testing performed by : [address] [address] RDW CV 15.6(H) 11.1 - 14.9 % AURELIO [place] Comment:Testing performed by : [address] [address] RDW SD 54.4(H) 35.7 - 48.1 fL AURELIO [place] Comment:Testing performed by : [address] [address] NRBC abs 0.00 0.00 - 0.01 K/cumm AURELIO [place] Comment:Testing performed by : [address] [address] Blood 12/03/2023 1:41 PM CDT 12/03/2023 1:42 PM CDT Catherine Todd MD LAB BLOOD ORDERABLES Final Result AURELIO [address] [facility] Department [place] [address] * (ABNORMAL) Comprehensive metabolic panel (12/03/2023 1:41 PM CDT) Sodium 134(L) 135 - 145 mmol/L Comment:Testing performed by : [address] [address] Potassium, pl 3.7 3.3 - 4.9 mmol/L AURELIO Comment:Testing performed by : [address] [address] Chloride 95(L) 97 - 110 mmol/L AURELIO Comment:Testing performed by : [address] [address] CO2 26 22 - 32 mmol/L AURELIO Comment:Testing performed by : [address] [address] Anion gap 13 2 - 15 mmol/L AURELIO Comment:Testing performed by : [address] [address] BUN 20 6 - 25 mg/dL AURELIO Comment:Testing performed by : [address] [address] Creatinine 0.70 0.60 - 1.10 mg/dL AURELIO [place] Comment:Testing performed by : [address] [address] Glucose 163 70 - 199 mg/dL AURELIO [...] was last revised 2022. Testing performed by: [address] [address] Calcium 9.7 8.5 - 10.3 mg/dL AURELIO Comment:Testing performed by : [address] [address] Bilirubin, total 0.3 0.1 - 1.2 mg/dL AURELIO Comment:Testing performed by : [address] [address] Protein, pl 7.0 6.5 - 8.5 g/dL AURELIO Comment:Testing performed by : [address] [address] Albumin 4.7 3.5 - 5.0 g/dL AURELIO Comment:Testing performed by : [address] [address] Alk phos 71 40 - 130 Units/L AURELIO Comment:Testing performed by : [address] [address] ALT 15 7 - 45 Units/L AURELIO Comment:Testing performed by : [address] [address] AST 17 10 - 45 Units/L AURELIO Comment:Testing performed by : [address] [address] Blood 12/03/2023 1:41 PM CDT 12/03/2023 1:42 PM CDT us Catherine Todd MD LAB BLOOD ORDERABLES Final Result Performing Organization Address City/[facility]/ZIP Co de Phone Number AURELIO [address] [place] [address] * (ABNORMAL) IgA (12/03/2023 1:41 PM CDT) Immunoglobulin A 69(L) 70 - 400 mg/dL Blood 12/03/2023 1:41 PM CDT 12/03/2023 4:45 PM CDT us Catherine Todd MD LAB BLOOD ORDERABLES Final Result Performing Organization Address [facility] Co de Phone Number AURELIO [address] [place] [address] * (ABNORMAL) IgG (12/03/2023 1:41 PM CDT) Immunoglobulin G 400(L) 700 - 1,600 mg/dL Blood 12/03/2023 1:41 PM CDT 12/03/2023 4:45 PM CDT us Catherine Todd MD LAB BLOOD ORDERABLES Final Result Performing Organization Address [facility] Co de Phone Number AURELIO [address] [place] [address] * (ABNORMAL) IgM (12/03/2023 1:41 PM CDT) Immunoglobulin M <25(L) 40 - 230 mg/dL Blood 12/03/2023 1:41 PM CDT 12/03/2023 4:45 PM CDT us Catherine Todd MD LAB BLOOD ORDERABLES Final Result Performing Organization Address City/[facility]/ZIP Co de Phone Number OLIVIA[address] [place] [address] * Immunotyping, serum (12/03/2023 1:41 PM CDT) Pathologist [facility] Immunosubtraction Please see comment Comment: FREE KAPPA LIGHT CHAIN PARAPROTEIN Reviewed and signed by Tyree Latham MD 12/05/2023 Testing performed by: [facility], [address] [place]., [address] Blood 12/03/2023 1:41 PM CDT 12/03/2023 5:25 PM CDT Catherine Todd MD LAB BLOOD ORDERABLES Final Result AURELIO [address] [facility] Department [place] [address] * (ABNORMAL) Immunoglobulin free light chains (12/03/2023 1:41 PM CDT) [facility] Hammon/Lambda ratio 28.44(H) 0.26 - 1.65 Comment:Testing performed by : [facility], [address] [place]., [address] Hammon free light chain 18.20(H) 0.33 - 1.94 mg/dL AURELIO [place]GAD[place]O Comment: Interpretive Data The Felisa Ig Hammon FLC assay procedure was used. Results from different manufacturers or methods may not be comparable. Serial testing should be performed using the same method. Testing performed by: [facility], [address] [place]., [address] Lambda free light chain 0.64 0.57 - 2.63 mg/dL AURELIO Comment: Interpretive Data The Felisa Ig Lambda FLC assay procedure was used. Results from different manufacturers or methods may not be comparable. Serial testing should be performed using the same method. Testing performed by: [facility], [address] [place]., [address] Blood 12/03/2023 1:41 PM CDT 12/03/2023 5:25 PM CDT Catherine Todd MD LAB BLOOD ORDERABLES Final Result Performing Organization Address City/[facility] Co de Phone Number [address] [address] * Lactate dehydrogenase (LD) (12/03/2023 1:41 PM CDT) [facility] Lactate dehydrogenase (LDH) 175 100 - 250 Units/L Comment:Testing performed by : [facility], [address] [place] [address], [address] Blood 12/03/2023 1:41 PM CDT 12/03/2023 1:42 PM CDT Catherine Todd MD LAB BLOOD ORDERABLES Final Result Performing Organization Address [facility] Co de Phone Number [address] [address] * (ABNORMAL) Protein electrophoresis with reflex, serum (12/03/2023 1:41 PM CDT) [facility] Protein, sr 6.8 6.2 - 8.2 g/dL Comment:Testing performed by : [facility], [address] [place] [address], [place]., [address] Albumin 4.4 3.2 - 5.0 g/dL AURELIO Comment:Testing performed by : [facility], [address] [place] [address], [place]., [address] Alpha-1 globulin 0.3 0.2 - 0.4 g/dL AURELIO Comment:Testing performed by : [facility], [address] [place] [address], [place]., [address] Alpha-2 globulin 0.9 0.5 - 1.0 g/dL AURELIO Comment:Testing performed by : [facility], [address] [place] [address], [place]., [address] Beta-1 globulin 0.4 0.3 - 0.6 g/dL AURELIO Comment:Testing performed by : [facility], [address] [place]., [address] Beta-2 globulin 0.3 0.2 - 0.6 g/dL AURELIO [place]AD[place]O Comment:Testing performed by : [facility], [address] [facility], [address] Gamma globulin 0.4(L) 0.5 - 1.7 g/dL AURELIO DELGAD[place]O Comment:Testing performed by : [facility], [address] [facility], [address] Rstr Pk Gamma 0.1(H) 0.0 - 0.0 g/dL AURELIO [place]AD[place]O Comment:Testing performed by : [facility], [address] [facility], [address] SPEP interp Please see comment AURELIO [place]AD[place]O Comment: Abnormal restricted peak in Gamma region Decreased gamma globulins Electrophoretic pattern appears similar to previous sample 08-28-23 See immunotyping for further information Reviewed and signed by Tyree Latham MD 12/05/2023 Testing performed by: [facility], [address] [facility], [address] Blood 12/03/2023 1:41 PM CDT 12/03/2023 5:25 PM CDT us Catherine Todd MD LAB BLOOD ORDERABLES Final Result AURELIO [address] [facility] Department [place] [address] * (ABNORMAL) Immune competence (12/03/2023 1:41 PM CDT) CD3 pct 72 60 - 88 % Comment:Testing performed by : [facility], [address] [facility], [address] CD3 Absolute 1,160 661 - 1,963 cells/mcL AURELIO DELGADILLO Comment:Testing performed by : [facility], [address] [facility], [address] CD4 pct 58 31 - 64 % AURELIO [place]AD[place]O Comment:Testing performed by : [facility], [address] [facility], [address] CD4 Absolute 952 365 - 1,294 cells/mcL AURELIO Comment:Testing performed by : [facility], [address] [facility], [address] CD8 pct 9(L) 12 - 40 % AURELIO Comment:Testing performed by : [facility], [address] [facility], [address] CD8 Absolute 150(L) 187 - 781 cells/mcL AURELIO Comment:Testing performed by : [facility], [address] [facility], [address] CD19 pct 16 6 - 25 % AURELIO Comment:Testing performed by : [facility], [address] [facility], [address] CD19 Absolute 254 86 - 488 cells/mcL AURELIO Comment:Testing performed by : [facility], [address] [facility], [address] [id number] pct 11 5 - 25 % AURELIO Comment:Testing performed by : [facility], [address] [facility], [address] [id number] Absolute 174 76 - 467 cells/mcL [facility] Comment:Testing performed by : [facility], [address] [facility], [address] CD4/CD8 ratio 6.4(H) 0.9 - 4.4 AURELIO Comment:Testing performed by : [facility], [address] [facility], [address] Blood 12/03/2023 1:41 PM CDT 12/03/2023 5:25 PM CDT us Catherine Todd MD LAB BLOOD ORDERABLES Final Result AURELIO [address] Department [place] [address] documented in this encounter Visit Diagnoses Diagnosis Multiple myeloma not having achieved remission (CMS/HCC) (HCC) documented in this encounter Care Teams Wrapper And Preserver Relationship Specialty Start Date End Date Elvis Lopez MD [employer] [place] [address] PCP - General Family Medicine 02/04/23 Catherine Todd MD [address] DIV IM BONE MARROW TRANSPLANT, [address] [place] [address] Medical Oncologist/Manager Party Hematology 08/27/23 documented as of this encounter
--- OUTSIDE RECORDS SUMMARY | 2024-06-26 01:35 | XMS_ITS | Encounter Summary ---
Author Organization [facility] Address [address] [place] [address] Care Team Providers Care Risk Modeler Name Role Phone Elvis Lopez MD Primary Care Provider [phone] Encounter Details Date Type Department Care Team (Late st Contact Info) Description 09/25/2002 Outpatient Historical HIS MRI DEPT Michael Hicks MD [address] [facility] [address] [place] [address] DEVIATED NASAL SEPTUM (Primary Dx) Social History Tobacco Use Types Packs/Day Years Used Date Smoking Tobacco: Never Assessed Sex and Gender Information Value Date Recorded Sex Assigned at Not on file Gender Identity Not on file Sexual Orientation Not on file documented as of this encounter Plan of Treatment Upcoming Encounters Date Type Department Care Team (Late st Contact Info) Description 07/14/2024 9:00 AM FACTORY CLERK Office Visit [facility] Oncology and Hematology - [place] [address] [facility] [address] [place] [address] Brant Ratliff MD [address] [facility] [address] [place] [address] documented as of this encounter Visit Diagnoses Diagnosis Deviated nasal septum- Primary documented in this encounter Care Teams Risk Modeler Relationship Specialty Start Date End Date Elvis Lopez MD [address] [place] [address] [place] [id number] PCP - General Family Practice 02/03/24 documented as of this encounter
--- OUTSIDE RECORDS SUMMARY | 2024-06-26 01:35 | XMS_ITS | Encounter Summary ---
Author Organization [facility] Address [address] [facility] Attn: Epic Prelude ADT RADHA TIERNEY [address] Care Team Providers Care Fish House Worker Name Role Phone Loc Whaley MD Primary Care Provider [phone] Encounter Details Date Type Department Care Team (Latest Contact Info) Description 11/22/2020 Travel Social History Tobacco Use Types Packs/Day Years [...] st Contact Info) Description 07/14/2024 9:00 AM ROOM COOLER INSTALLER Office Visit [facility] Oncology and Hematology - [place] [address] [facility] [address] [place] [address] Brant Ratliff MD [address] [facility] [address] [place] [address] documented as of this encounter Visit Diagnoses Not on filedocumented in this encounter Care Teams Fish House Worker Relationship Specialty Start Date End Date Loc Whaley MD [address] [place] [id number] PCP - General Family Practice 11/22/20 02/02/24 documented as of this encounter
--- OUTSIDE RECORDS SUMMARY | 2024-06-26 01:35 | XMS_ITS | Encounter Summary ---
Author Organization [facility] Address [address] [place] [address] Phone Care Team Providers Care Pharmacy Specialist Name Role Phone Elvis Lopez MD Primary Care Provider [phone] Catherine Todd MD Unavailable [phone] Encounter Details Date Type Department Care Team (Late st Contact Info) Description 12/20/2023 Telephone [facility] Oncology [address] [facility] [address] [place] [address] Dafne Muse CMA Social History Tobacco Use Types Packs/Day Years [...] on file Legal Sex Female 3:01 AM ASSISTANT ASSOCIATE FULL PROFESSOR Gender Identity Female 06/07/2020 11:17 AM ASSISTANT ASSOCIATE FULL PROFESSOR Sexual Orientation Straight 06/07/2020 11 :17 AM ASSISTANT ASSOCIATE FULL PROFESSOR documented as of this encounter Miscellaneous Notes * Telephone Encounter - Dafne Muse CMA - 12/20/2023 3:50 PM CDT Spoke with pt about upcoming appt. Confimed appt date and time. AM documented in this encounter Plan of Treatment Not on file documented as of this encounter Visit Diagnoses Not on filedocumented in this encounter Care Teams Pharmacy Specialist Relationship Specialty Start Date End Date Elvis Lopez MD [facility] [place] [address] PCP - General Family Medicine 02/04/23 Catherine Todd MD [address] DIV IM BONE MARROW TRANSPLANT, [address] [place] [address] Medical Oncologist/Numerical Analysis Group Manager Hematology 08/27/23 documented as of this encounter
--- OUTSIDE RECORDS SUMMARY | 2024-06-26 01:35 | XMS_ITS | Encounter Summary ---
Author Organization [facility] Address [address] [place] [address] Phone Care Team Providers Care Manager Banquet Name Role Phone Elvis Lopez MD Primary Care Provider [phone] Catherine Todd MD Unavailable [phone] Encounter Details Date Type Department Care Team (Late st Contact Info) Description 12/03/2023 1:15 PM CDT Lab [facility] Oncology [address] [place] [phone] Multiple myeloma not having achieved remission [...] on file Legal Sex Female 3:01 AM PATTERNMAKER GRADER Gender Identity Female 06/07/2020 11:17 AM PATTERNMAKER GRADER Sexual Orientation Straight 06/07/2020 11 :17 AM PATTERNMAKER GRADER documented as of this encounter Plan of Treatment Not on file documented as of this encounter Visit Diagnoses Diagnosis Multiple myeloma not having achieved remission (CMS/HCC) (HCC) documented in this encounter Orders Appointment Requests Count Last Ordered Date Fi rst Ordered Date ONCBCN LAB APPOINTMENT 1 12/03/2023 documented in this encounter Care Teams Manager Banquet Relationship Specialty Start Date End Date Elvis Lopez MD [address] [facility] [place] [address] PCP - General Family Medicine 02/04/23 Catherine Todd MD [address] IM BONE MARROW TRANSPLANT, [address] [place] [address] Medical Oncologist/Certified Endoscopy Technician Hematology 08/27/23 documented as of this encounter
--- OUTSIDE RECORDS SUMMARY | 2024-06-26 01:35 | XMS_ITS | Encounter Summary ---
Author Organization [facility] Address [address] [place] [address] Phone Care Team Providers Care Dog Races Manager Name Role Phone Elvis Lopez MD Primary Care Provider [phone] Catherine Todd MD Unavailable [phone] Encounter Details Date Type Department Care Team (Late st Contact Info) Description 12/15/2023 Orders Only [facility] Oncology [address] [facility] [address] [place] [address] Falguni Lomeli RN Social History Tobacco [...] on file Legal Sex Female 3:01 AM FILM REPLACEMENT ORDERER Gender Identity Female 06/07/2020 11:17 AM FILM REPLACEMENT ORDERER Sexual Orientation Straight 06/07/2020 11 :17 AM FILM REPLACEMENT ORDERER documented as of this encounter Plan of Treatment Not on file documented as of this encounter Visit Diagnoses Not on filedocumented in this encounter Care Teams Dog Races Manager Relationship Specialty Start Date End Date Elvis Lopez MD [facility] [facility] [place] [address] PCP - General Family Medicine 02/04/23 Catherine Todd MD [address] DIV IM BONE MARROW TRANSPLANT, [address] [place] [address] Medical Oncologist/Refrigerator Glazier Hematology 08/27/23 documented as of this encounter
--- OUTSIDE RECORDS SUMMARY | 2024-06-26 01:35 | XMS_ITS | Encounter Summary ---
Author Organization [facility] Address [address] [place] [address] Phone Care Team Providers Care Director Of Vocational Training Name Role Phone Elvis Lopez MD Primary Care Provider [phone] Catherine Todd MD Unavailable [phone] Encounter Details Date Type Department Care Team (Late st Contact Info) Description 10/20/2023 Telephone [facility] Oncology [address] [facility] [address] [place] [phone] Falguni Lomeli RN Social History Tobacco [...] on file Legal Sex Female 3:01 AM FACETOR Gender Identity Female 06/07/2020 11:17 AM FACETOR Sexual Orientation Straight 06/07/2020 11 :17 AM FACETOR documented as of this encounter Miscellaneous Notes * Telephone Encounter - Falguni Lomeli RN - 10/21/2023 10:01 AM CDT Patient called back stating that that date and time works for her for the bone marrow biopsy. I will mail patient the instructions and let the [facility] team know. * Telephone Encounter - Falguni Lomeli RN - 10/20/2023 10:34 AM CDT Left VM for patient to see if she is able to get her bone marrow biopsy done at [facility] at [place] on 10/31 with arrival time of 1pm and procedure time of 2pm. I asked patient to call me back to discuss. documented in this encounter Plan of Treatment Not on file documented as of this encounter Visit Diagnoses Not on filedocumented in this encounter Care Teams Director Of Vocational Training Relationship Specialty Start Date End Date Elvis Lopez MD [address] [place] [address] [place] [address] PCP - General Family Medicine 02/04/23 Catherine Todd MD [address] IM BONE MARROW TRANSPLANT, [address] [place] [address] Medical Oncologist/Wearing Apparel Assembler Hematology 08/27/23 documented as of this encounter
--- OUTSIDE RECORDS SUMMARY | 2024-06-26 01:35 | XMS_ITS | Encounter Summary ---
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 Post procedure call DOS:11/01/23 Procedure: Left iliac bone marrow biopsy and aspiration under fluoroscopic guidance. The bone marrow aspirate was submitted to hematopathology, and the bone marrow core biopsy sample to surgical pathology. Attending MD: Sameer Mosqueda MD Site Soreness: Y some soreness yesterday, that has now subsided. Ice compress for comfort measures needed or instructed: Y discussed cold pack for comfort measures. Medication needed for post procedure pain: No medication needed Site clean, dry, and dressing/Dermabond intact: Y-C/D/I Signs or symptoms of infection to site (increasing redness or site drainage): no concerns at the time of our call today; instructed to call with any s/s of infection or healing issues Site care reviewed (Dermabond/steri strips will fall off on its own, No bathing or submerging in water for 4 days, Able to shower after 24 hours post procedure- pat site lightly to dry): as per discharge instructions given after procedure Post procedure instruction review completed. Plan to follow up with referring MD: With Dr. Todd for results and follow up care Post procedure follow up call for status. Ms. Elise is doing well today with no concerns noted at time of call. She did have a small amount of blood on her undergarments post procedure that has now subsided. Site has glue intact. She will continue to monitor and report back any concerns. documented in this encounter Plan of Treatment Not on file documented as of this encounter Visit Diagnoses Not on filedocumented in this encounter Care Teams Moving Picture Producer Relationship Specialty Start Date End Date Elvis Lopez MD [address] [facility] [place] [address] PCP - General Family Medicine 02/04/23 Catherine Todd MD [address] IM BONE MARROW TRANSPLANT, [address] [place] [address] Medical Oncologist/Bobbin Stripper Hematology 08/27/23 documented as of this encounter
--- OUTSIDE RECORDS SUMMARY | 2024-06-26 01:35 | XMS_ITS | Encounter Summary ---
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 [address] [place], [place] [id number] PCP - General Family Medicine 02/04/23 Catherine Todd MD [address] [facility] BONE MARROW TRANSPLANT, [address] [place] [address] Medical Oncologist/Credit Collections Manager Hematology 08/27/23 documented as of this encounter
--- OUTSIDE RECORDS SUMMARY | 2024-06-26 01:35 | XMS_ITS | Encounter Summary ---
Author Organization [facility] Address [address] [place] [address] Phone Care Team Providers Care Motor Vehicle Emissions Inspector Name Role Phone Elvis Lopez MD Primary Care Provider [phone] Catherine Todd MD Unavailable [phone] Reason for Referral * Consultation (Routine) - Pending Review Specialty Diagnoses / Procedures Referred By Contac t Referred To Contact Oncology Diagnoses Multiple myeloma not having achieved remission (CMS/HCC) (HCC) Catherine Todd MD [address] IM BONE MARROW TRANSPLANT, [address] [place] [address] Phone: tel: fax: Brant Ratliff MD [address] [address] Phone: tel: fax: Referral ID Status Reason Start Date Expiration Date Visits Requested Visits Authorized [id number] Pending Review Specialty Services Required 12/20/2023 01/18/2025 1 1 Question Answer Please select the performing region: External Order [171] To provider: BRANT RATLIFF [[id number]] # of visits: 1 Comments Multiple Myeloma, would like to see an oncologist closer to home. Has not had any treatment. 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 Todd, it is OK to hold off on treatment right now, we will also place a referral for her to see someone closer to home. Patient made aware that we can schedule to see her in late December but in the meantime we will send a referral to [place]. Patient voiced understanding and agrees with plan. * Telephone Encounter - Shirlene Lomeli RN - 12/15/2023 9:19 AM CDT Spoke with patient, she states she has a lot going on in her life right now as they just sold theirhouse and have to have all of their stuff moved out by January 06. She would like to go ahead and cancel her apts till after January 06. Patient is also concerned about quality of life over quantity. States she is feeling pretty good and does not want to get to a point that she cannot take care of herself. She is asking if possible how long she would be able to push off treatment. Patient also states its takes her over an hour to get to our facility and would like to look into the options of seeing someone closer to home. I made her aware that I will discuss all of this with Dr. Todd and call her back. Patient voiced understanding. * Telephone Encounter - Lucretia Foote RMA - 12/14/2023 3:03 PM CDT Patient calling stating she is scheduled to come in on Wednesday for labs seeing Dr Todd and start her treatment. Patient states after reading the information we gave her about the treatment she is not sure she wants to proceed with treatment and would like to discuss her questions she has to with Shirlene the nurse. I let her know Shirlene was in clinic today but Shirlene would call her tomorrow andgo over her questions. Let her know we will keep apt as scheduled on Wednesday. She states that will be fine but was wondering if Shirlene can call in the morning due to having something else going on inthe afternoon. Lucretia COLLIER documented in this encounter Plan of Treatment Scheduled Orders Name Type Priority Associated Diagnoses Orde r Schedule Beta 2 microglobulin, serum Lab Routine Multiple myeloma not having achieved remission (CMS/HCC) ([facility]) Expected: 01/14/2024, Expires: 12/19/2024 CBC with auto differential Lab Routine Multiple myeloma not having achieved remission (CMS/HCC) (HCC) Expected: 01/14/2024, Expires: 12/19/2024 Comprehensive metabolic panel Lab Routine Multiple myeloma not having achieved remission (CMS/HCC) (HCC) Expected: 01/14/2024, Expires: 12/19/2024 IgA Lab Routine Multiple myeloma not having achieved remission (CMS/HCC) (HCC) Expected: 01/14/2024, Expires: 12/19/2024 IgG Lab Routine Multiple myeloma not having achieved remission (CMS/HCC) (HCC) Expected: 01/14/2024, Expires: 12/19/2024 IgM Lab Routine Multiple myeloma not having achieved remission (CMS/HCC) (HCC) Expected: 01/14/2024, Expires: 12/19/2024 Immunotyping, serum Lab Routine Multiple myeloma not having achieved remission (CMS/HCC) (HCC) Expected: 01/14/2024, Expires: 12/19/2024 Immunoglobulin free light chains Lab Routine Multiple myeloma not having achieved remission (CMS/HCC) (HCC) Expected: 01/14/2024, Expires: 12/19/2024 Lactate dehydrogenase (LD) Lab Routine Multiple myeloma not having achieved remission (CMS/HCC) (HCC) Expected: 01/14/2024, Expires: 12/19/2024 Protein electrophoresis with reflex, serum Lab Routine Multiple myeloma not having achieved remission (CMS/HCC) (HCC) Expected: 01/14/2024, Expires: 12/19/2024 Scheduled Referrals Name Type Priority Associated Diagnoses Order Schedule Ambulatory referral to Oncology Outpatient Referral Routine Multiple myeloma not having achieved remission (CMS/HCC) (HCC) Expected: 01/03/2024 (Approximate), Expires: 12/19/2024 documented as of this encounter Visit Diagnoses Diagnosis Multiple myeloma not having achieved remission (CMS/HCC) (HCC)- Primary documented in this encounter Orders Appointment Requests Count Last Ordered Date Fi rst Ordered Date ONCBCN CLINIC APPOINTMENT REQUEST 1 024 ONCBCN LAB APPOINTMENT 1 12/20/2023 documented in this encounter Care Teams Motor Vehicle Emissions Inspector Relationship Specialty Start Date End Date Elvis Lopez MD [facility] [address] PCP - General Family Medicine 02/04/23 Catherine Todd MD [address] IM BONE MARROW TRANSPLANT, [address] [place] [address] Medical Oncologist/Geothermal Powerplant Supervisor Hematology 08/27/23 documented as of this encounter
--- OUTSIDE RECORDS SUMMARY | 2024-06-26 01:35 | XMS_ITS | Encounter Summary ---
Author Organization [facility] Address [address] [place] [address] Phone Care Team Providers Care Developer Relations Manager Name Role Phone Elvis Lopez MD Primary Care Provider [phone] Encounter Details Date Type Department Care Team (Late st Contact Info) Description 08/17/2023 Telephone [facility] Oncology [address] [facility] [address] [place] [phone] Sofi Zayas CMA Social History Tobacco Use Types Packs/Day [...] on file Legal Sex Female 3:01 AM CHARGE COORDINATOR Gender Identity Female 06/07/2020 11:17 AM CHARGE COORDINATOR Sexual Orientation Straight 06/07/2020 11 :17 AM CHARGE COORDINATOR documented as of this encounter Miscellaneous Notes * Telephone Encounter - Sofi Zayas CMA - 08/17/2023 12:46 PM CHARGE COORDINATOR Called patient and informed she will needs labs done; I offered for her to have them done at [facility] a week prior to appt and then we should have results of all labs or can come to our office 1/2 hour prior to her ROV on 08/27/2023 and will have most labs, no all, resulted, RN would call with results when received; she chose to come to our office for labs 1/2 hour prior to ROV GE COORDINATOR * Telephone Encounter - Falguni Lomeli RN - 08/17/2023 11:56 AM CHARGE COORDINATOR Yes she will need labs. I placed orders GE COORDINATOR * Telephone Encounter - Sofi Zayas CMA - 08/17/2023 11:42 AM CHARGE COORDINATOR Patient called asking if she needs labs prior to her ROV with Dr Todd on 08/27/2023 GE COORDINATOR documented in this encounter Plan of Treatment Not on file documented as of this encounter Results * (ABNORMAL) Protein electrophoresis with reflex, serum (08/27/2023 12:29 PM CHARGE COORDINATOR) Pathologist [facility] Protein, sr 6.5 6.2 - 8.2 g/dL Comment:Testing performed by : [facility], [address] [place]., [address] Albumin 4.3 3.2 - 5.0 g/dL AURELIO Comment:Testing performed by : [facility], [address] [place]., [address] Alpha-1 globulin 0.3 0.2 - 0.4 g/dL AURELIO Comment:Testing performed by : [facility], [address] [place]., [address] Alpha-2 globulin 0.8 0.5 - 1.0 g/dL AURELIO Comment:Testing performed by : [facility], [address] [place]., [address] Beta-1 globulin 0.4 0.3 - 0.6 g/dL AURELIO Comment:Testing performed by : [facility], [address] [place]., [address] Beta-2 globulin 0.3 0.2 - 0.6 g/dL AURELIO DELGADILLO Comment:Testing performed by : [facility], [address] [place]., [address] Gamma globulin 0.4(L) 0.5 - 1.7 g/dL AURELIO Comment:Testing performed by : [facility], [address] [place]., [address] Rstr Pk Gamma 0.1(H) 0.0 - 0.0 g/dL AURELIO DELGADILLO Comment:Testing performed by : [facility], [address] [facility], [address] SPEP interp Please see comment AURELIO Comment: Abnormal restricted peak in gamma region Decreased gamma globulins See immunotyping for further information Reviewed and signed by Zak Graves MD, PhD on 08/28/2023 Testing performed by: [facility], [address] [place]., [address] Blood 08/27/2023 12:2 9 PM CHARGE COORDINATOR 08/27/2023 3:03 PM CHARGE COORDINATOR Catherine Todd MD LAB BLOOD ORDERABLES Final Result [facility] [address] [facility] Department [place] [address] * Lactate dehydrogenase (LD) (08/27/2023 12:29 PM CHARGE COORDINATOR) Lactate dehydrogenase (LDH) 191 100 - 250 Units/L Comment:Testing performed by : [facility], [address] [place] [address]., [id number] Blood 08/27/2023 12:2 9 PM CHARGE COORDINATOR 08/27/2023 12:32 PM CHARGE COORDINATOR Catherine Todd MD LAB BLOOD ORDERABLES Final Result Performing Organization Address [facility] Co de Phone Number AURELIO [address] [address] * (ABNORMAL) Immunoglobulin free light chains (08/27/2023 12:29 PM CHARGE COORDINATOR) Pathologist [facility] [place]/Lambda ratio 20.39(H) 0.26 - 1.65 Comment:Testing performed by : [facility], [address] [place]., [address] [place] free light chain 16.72(H) 0.33 - 1.94 mg/dL [facility] Comment: Interpretive Data The Felisa Ig [place] FLC assay procedure was used. Results from different manufacturers or methods may not be comparable. Serial testing should be performed using the same method. Testing performed by: [facility], [address] [place] [address]., [id number] Lambda free light chain 0.82 0.57 - 2.63 mg/dL [facility] Comment: Interpretive Data The Felisa Ig [place] FLC assay procedure was used. Results from different manufacturers or methods may not be comparable. Serial testing should be performed using the same method. Testing performed by: [facility], [address] [place] [address]., [id number] Blood 08/27/2023 12:2 9 PM CHARGE COORDINATOR 08/27/2023 3:03 PM CHARGE COORDINATOR Catherine Todd MD LAB BLOOD ORDERABLES Final Result Performing Organization Address [facility] Co de Phone Number AURELIO [address] [place] [address] * Immunotyping, serum (08/27/2023 12:29 PM CHARGE COORDINATOR) Pathologist [facility] Immunosubtraction Please see comment Comment: FREE [place] LIGHT CHAIN PARAPROTEIN Reviewed and signed by Zak Graves MD, PhD on 08/28/2023 Testing performed by: [facility], [address] [place] [address]., [id number] Blood 08/27/2023 12:2 9 PM CHARGE COORDINATOR 08/27/2023 3:03 PM CHARGE COORDINATOR Result Erik Todd MD LAB BLOOD ORDERABLES Final Result Performing Organization Address [facility] Co de Phone Number [address] [place] [address] * (ABNORMAL) IgM (08/27/2023 12:29 PM CHARGE COORDINATOR) Immunoglobulin M <25(L) 40 - 230 mg/dL Blood 08/27/2023 12:2 9 PM CHARGE COORDINATOR 08/27/2023 2:26 PM CHARGE COORDINATOR Result Erik Todd MD LAB BLOOD ORDERABLES Final Result Performing Organization Address [facility] de Phone Number [address] [place] [address] * (ABNORMAL) IgG (08/27/2023 12:29 PM CHARGE COORDINATOR) Immunoglobulin G 387(L) 700 - 1,600 mg/dL Blood 08/27/2023 12:2 9 PM CHARGE COORDINATOR 08/27/2023 2:26 PM CHARGE COORDINATOR Result Erik Todd MD LAB BLOOD ORDERABLES Final Result Performing Organization Address [facility] de Phone Number [address] [place] [address] * (ABNORMAL) IgA (08/27/2023 12:29 PM CHARGE COORDINATOR) Immunoglobulin A <50(L) 70 - 400 mg/dL Blood 08/27/2023 12:2 9 PM CHARGE COORDINATOR 08/27/2023 2:26 PM CHARGE COORDINATOR us Catherine Todd MD LAB BLOOD ORDERABLES Final Result [facility] [address] [facility] Department [place] [address] * (ABNORMAL) Comprehensive metabolic panel (08/27/2023 12:29 PM CHARGE COORDINATOR) Sodium 135 135 - 145 mmol/L Comment:Testing performed by : [address] [address] Potassium, pl 3.9 3.3 - 4.9 mmol/L AURELIO Comment:Testing performed by : [address] [address] Chloride 96(L) 97 - 110 mmol/L AURELIO Comment:Testing performed by : [address] [address] CO2 25 22 - 32 mmol/L AURELIO Comment:Testing performed by : [address] [address] Anion gap 14 2 - 15 mmol/L AURELIO Comment:Testing performed by : [address] [address] BUN 14 6 - 25 mg/dL AURELIO Comment:Testing performed by : [address] [address] Creatinine 0.80 0.60 - 1.10 mg/dL AURELIO Comment:Testing performed by : [address] [address] Glucose 123 70 - 199 mg/dL AURELIO [...] was last revised 2022. Testing performed by: [address] [address] Calcium 9.5 8.5 - 10.3 mg/dL AURELIO Comment:Testing performed by : [address] [address] Bilirubin, total 0.3 0.1 - 1.2 mg/dL AURELIO Comment:Testing performed by : [address] [address] Protein, pl 6.5 6.5 - 8.5 g/dL AURELIO Comment:Testing performed by : [address] [address] Albumin 4.5 3.5 - 5.0 g/dL AURELIO Comment:Testing performed by : [address] [address] Alk phos 65 40 - 130 Units/L AURELIO Comment:Testing performed by : [address] [address] ALT 16 7 - 45 Units/L AURELIO Comment:Testing performed by : [address] [address] AST 18 10 - 45 Units/L AURELIO Comment:Testing performed by : [address] [address] Blood 08/27/2023 12:2 9 PM CHARGE COORDINATOR 08/27/2023 12:32 PM CHARGE COORDINATOR us Catherine Todd MD LAB BLOOD ORDERABLES Final Result Performing Organization Address City/State/[facility] Co de Phone Number [facility] [address] [facility] Department of Laboratories [place], [place] [id number] * (ABNORMAL) CBC with auto differential (08/27/2023 12:29 PM CHARGE COORDINATOR) WBC 4.0 3.8 - 9.9 K/cumm Comment:Testing performed by : [address] [address] Hgb 11.0(L) 11.9 - 15.5 g/dL AURELIO Comment:Testing performed by : [address] [address] Hct 32.6(L) 35.6 - 45.5 % AURELIO DELGADILLO Comment:Testing performed by : [address], [address] Plt 175 150 - 400 K/cumm AURELIO DELGADILLO Comment:Testing performed by : [address] [address] MPV 10.6 9.1 - 12.3 fL AURELIO DELGADILLO Comment:Testing performed by : [address] [address] RBC 3.46(L) 3.90 - 5.20 M/cumm AURELIO DELGADILLO Comment:Testing performed by : [address], [address] MCV 94.2 81.3 - 96.4 fL AURELIO Comment:Testing performed by : [address] [address] MCH 31.8 27.1 - 33.3 pg AURELIO DELGADILLO Comment:Testing performed by : [address] [address] MCHC 33.7 32.3 - 35.7 g/dL AURELIO Comment:Testing performed by : [address] [address] RDW CV 16.2(H) 11.1 - 14.9 % AURELIO Comment:Testing performed by : [address] [address] RDW SD 55.7(H) 35.7 - 48.1 fL AURELIO Comment:Testing performed by : [address] [address] NRBC abs 0.00 0.00 - 0.01 K/cumm AURELIO Comment:Testing performed by : [address], [address] Blood 08/27/2023 12:2 9 PM CHARGE COORDINATOR 08/27/2023 12:32 PM CHARGE COORDINATOR us Catherine Todd MD LAB BLOOD ORDERABLES Final Result AURELIO DELGADILLO [address] [facility] [place] [address] * (ABNORMAL) Beta 2 microglobulin, serum (08/27/2023 12:29 PM CHARGE COORDINATOR) Beta 2 Microglobulin, Serum 3.70(H) 1.00 - 2.50 mg/L Comment: Interpretive Data The Felisa Beta-2 microglobulin assay procedure was used. Results from different manufacturers or methods may not be comparable. Serial testing should be performed using the same method. Testing performed by: [facility], [address] [place] [address]., [address] Blood 08/27/2023 12:2 9 PM CHARGE COORDINATOR 08/27/2023 1:43 PM CHARGE COORDINATOR us Catherine Todd MD LAB BLOOD ORDERABLES Final Result AURELIO [address] [facility] [place] [address] documented in this encounter Visit Diagnoses Diagnosis Multiple myeloma not having achieved remission (CMS/HCC) (HCC)- Primary documented in this encounter Orders Appointment Requests Count Last Ordered Date Fi rst Ordered Date ONCBCN LAB APPOINTMENT 1 08/27/2023 documented in this encounter Care Teams Developer Relations Manager Relationship Specialty Start Date End Date Elvis Lopez MD [address] [place] [address] [place] [address] PCP - General Family Medicine 02/04/23 documented as of this encounter
--- OUTSIDE RECORDS SUMMARY | 2024-06-26 01:35 | XMS_ITS | Encounter Summary ---
Author Organization [facility] Address [address] [place] [address] Phone Care Team Providers Care Business Coordinator Name Role Phone Yosi Whaley MD Primary Care Provider [phone] Yosi Whaley MD Unavailable Reason for Referral * MRI/CAT/PET Scan (Routine) - Closed Specialty Diagnoses / Procedures Referred By Contac t Referred To Contact Radiology Diagnoses Multiple myeloma not having achieved remission (CMS/HCC) (HCC) Procedures PET/CT FDG Skull to Thigh Catherine Todd MD [address] IM BONE [facility]ARROW [facility]ANSPL[facility], [address] [place] [address] Phone: tel: fax: [facility] [address] [place] [address] Referral ID Status Reason Start Date Expiration Date Visits Re quested Visits Authorized [id number] Closed 12/25/2022 01/24/2024 1 1 Encounter Details Date Type Department Care Team (Late st Contact Info) Description 12/25/2022 3:00 PM CDT Office Visit [facility] Marrow Transplant [address] [facility] [address] [place] [address] Catherine Todd MD [address] [facility] BONE [facility]ARROW [employer], [address] [place] [address] Multiple myeloma not having achieved remission (CMS/HCC) [...] on file Legal Sex Female 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 Gender Identity Female 06/07/2020 11:17 AM SUPERVISOR RECEIVING AND PROCESSING Sexual Orientation Straight 06/07/2020 11 :17 AM SUPERVISOR RECEIVING [employer] PROCESSING documented as of this encounter Last Filed Vital Signs Vital Sign Reading Time Taken Comments Blood Pressure 157/74 12/25/2022 2:49 PM CDT Pulse 79 12/25/2022 2:49 PM CDT Temperature 36.6 ??C (97.9 ??F) 12/25/2022 2:49 PM CD T Respiratory Rate 17 12/25/2022 2:49 PM CDT Oxygen Saturation 97% 12/25/2022 2:49 PM CDT Inhaled Oxygen Concentration - - Weight 94.8 kg (209 lb) 12/25/2022 2:49 PM CDT Height 172.7 cm (5' 8 ) 12/25/2022 2:49 PM CDT Body Mass Index 31.78 12/25/2022 2:49 PM CDT documented in this encounter Patient Instructions * Patient Instructions* Falguni Lomeli RN - 12/25/2022 3:00 PM CDT For the skeletal survey - you do not need an appointment. You can go to radiology in [address] and let them know you need an x-ray and they will see the order. They are open Wednesday-Wednesday [phone] documented in this encounter Progress Notes * Catherine Todd MD - 12/25/2022 3:00 PM CDT Images from the original note were not included. BMT Oncology Progress Note PATIENT NAME: Rigoberto Elise : 1940 AUSTYN: 12/25/2022 Primary Care Physician: Yosi Whaley MD Cancer [...] However, her back pain is getting worse, whenerikae came in today, she is on a [...] cell count was 4.9, platelet count was [id number]. Metabolic profile was unremarkable. IgG was 350, [...] was 13 g, and a platelet countof [id number]. A complete metabolic profile was unremarkable. LDH [...] Hematology Subjective Interval History Ms Elise is an 82 year old lady with acquired hypogammaglobulinemia. She had contracted Covid-19in 2020, has multiple symptoms affecting her mobility, ability to walk unassisted she denies any weight loss, and has consistently demonstrated elevated free kappa light chains as well as lambda FLCson her blood work typically done at [facility] prior to her visit today. 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 I don't have any pathology results that suggest a positive immunofixation test and although she may have a faint band on SPEP we cannot be absolutely sure we aredealing with a plasma cell dyscrasia without a [...] for hypothyroidism. Her medication list was reconciled. Patient Active Problem List Diagnosis Corneal scar [...] Other (See comments) Sleeps all day Extendryl [Vbuampdlbsfnwbcs-Wa-Xpptgpwdcu] Other (See comments) Hard to awaken Seldane Other (See comments) Upset stomach Immunization History Administered Date(s) Administered Influenza, Trivalent, High Dose, Split, Preservative Free, Intramuscular 03/25/2018 Influenza, Unspecified 03/31/2018 Pneumococcal, Unspecified 03/31/2018 Outpatient Encounter Medications as of 12/25/2022: acetaminophen ER (Tylenol Arthritis Pain) 650 mg 8 hr tablet, Take 1 tablet (650 mg total) by mouthevery 8 (eight) hours as needed for pain, Disp: , Rfl: amLODIPine (NORVASC) 2.5 mg tablet, TK 1 T PO QD, Disp: , Rfl: 8 aspirin 81 mg tablet, Take 1 tablet (81 mg total) by mouth every other day, Disp: , Rfl: cholecalciferol (VITAMIN D-3) 50,000 [...] tablet, , Disp: , Rfl: glucosam velasquez wis-edfwjzbgn-I-Mn 720-615-29-3 mg capsule, , Disp: , Rfl: hydroCHLOROthiazide [...] Take by mouth, Disp: , Rfl: omega 5-wqb-tcn-fish oil (Fish OiL) 100-160-1,000 mg capsule, Take [...] 400 unit capsule, , Disp: , Rfl: [DISCONTINUED] glucosam velasquez mfk-oesgicebw-R-Mn 164-285-42-3 mg capsule, , Disp: , Rfl: [DISCONTINUED] cetirizine (ZyrTEC) 10 mg tablet, Take 10 mg by mouth daily (Patient not taking: Reported on 12/25/2022), Disp: , Rfl: [DISCONTINUED] clobetasol (TEMOVATE) 0.05 % ointment, Apply topically 2 (two) times a day (Patient not taking: Reported on 01/16/2022), Disp: , Rfl: [DISCONTINUED] diphenhydrAMINE (BENADRYL) 25 mg capsule, Take 25 mg by mouth nightly (Patient not taking: Reported on 01/16/2022), Disp: , Rfl: [DISCONTINUED] ergocalciferol (VITAMIN D) 50,000 unit capsule, TK 1 C PO Q 2 WEEKS UTD (Patient nottaking: Reported on 12/25/2022), Disp: , Rfl: 3 [DISCONTINUED] naltrexone (LOW DOSE) 4.5 mg capsule, Take 4.5 mg by mouth daily (Patient not taking: Reported on 01/16/2022), Disp: , Rfl: [DISCONTINUED] naproxen (ANAPROX,ALEVE) 220 mg tablet, Take by mouth 2 (two) times a day with meals(Patient not taking: Reported on 12/25/2022), Disp: , Rfl: [DISCONTINUED] quinapril (ACCUPRIL) 20 mg tablet, TK 2 TS PO D, Disp: , Rfl: 2 [DISCONTINUED] traMADoL (ULTRAM) 50 mg tablet, TK 1 T PO D PRN P (Patient not taking: Reported on 12/16/2021), Disp: , Rfl: Review of Systems Constitutional: [...] Performance Status: ECOG 1 Objective Vitals BP 157/74 (BP Location: Left arm) Pulse 79 Temp 36.6 ??C (97.9 ??F) (Oral) Resp 17 Ht 172.7 cm (5' 8 ) Wt 94.8 kg (209 lb) SpO2 97% BMI 31.78 kg/m?? Physical exam: General appearance: appears stated [...] Alert and oriented x4, non-focal Psych: normal cooperative Lab/Radiology/Diagnostic Review: CBC: Lab Results Component Value Date/Time WBC 4.3 12/11/2022 08:52 AM WBC 7.1 08/29/2018 04:00 PM LABPLAT 217 12/11/2022 08:52 AM LABPLAT 255 08/29/2018 04:00 PM HGB 12.2 12/11/2022 08:52 AM HGB 13.0 08/29/2018 04:00 PM HCT 35.8 12/11/2022 08:52 AM HCT 39.0 08/29/2018 04:00 PM MCV 94.5 12/11/2022 08:52 AM MCV 92 08/29/2018 04:00 PM MCH 32.2 12/11/2022 08:52 AM MCH 30.8 08/29/2018 04:00 PM MCHC 34.1 12/11/2022 08:52 AM MCHC 33.3 08/29/2018 04:00 PM RDW 15.0 12/11/2022 08:52 AM RDW 15.6 (H) 08/29/2018 04:00 PM MPV 10.3 12/11/2022 08:52 AM NRBC CANCELED 11/21/2020 02:11 PM NRBC CANCELED 11/21/2020 02:11 PM NEUTROABS 2,000 12/11/2022 08:52 AM NEUTROABS 4.0 08/29/2018 04:00 PM ABSOLBLA CANCELED 11/21/2020 02:11 PM BLASTS CANCELED 11/21/2020 02:11 PM LYMPHOPCT 40.3 12/11/2022 08:52 AM LABEOS 1 08/29/2018 04:00 PM CMP: Lab Results Component Value Date/Time SODIUM 139 12/11/2022 08:52 AM SODIUM 142 08/29/2018 03:47 PM POTASSIUM 4.0 12/11/2022 08:52 AM CO2 29 12/11/2022 08:52 AM CO2 26 08/29/2018 03:47 PM BUNSER 22 12/11/2022 08:52 AM BUNSER 22 08/29/2018 03:47 PM GLUCOSE 108 01/08/2023 12:58 PM GLUCOSE 100 (H) 12/11/2022 08:52 AM GLUCOSE 95 08/29/2018 03:47 PM CREATININE 0.94 12/11/2022 08:52 AM CREATININE 0.85 08/29/2018 03:47 PM CALCIUM 9.6 12/11/2022 08:52 AM CALCIUM 9.6 08/29/2018 03:47 PM CHLORIDE 99 12/11/2022 08:52 AM CHLORIDE 97 08/29/2018 03:47 PM ALBUMIN 4.7 12/11/2022 08:52 AM ALBUMIN 4.6 08/29/2018 03:47 PM ALBUMIN 3.5 08/29/2018 03:47 PM AST 17 12/11/2022 08:52 AM AST 14 08/29/2018 03:47 PM ALT 15 12/11/2022 08:52 AM ALT 19 08/29/2018 03:47 PM ALKPHOS 68 12/11/2022 08:52 AM ALKPHOS 60 08/29/2018 03:47 PM BILITOT 0.4 12/11/2022 08:52 AM BILITOT 0.2 08/29/2018 03:47 PM PROT 7.4 09/11/2019 10:22 AM ANIONGAP 14 09/11/2019 10:22 AM LDH: Lab Results Component Value Date/Time LDH 164 12/04/2021 09:24 AM Uric Acid:No results found for: URICACID PT:No results found for: PT PTT:No results found for: APTT Tumor Marker History Latest Ref Rng & Units 12/11/2022 08:52 Tumor Markers Beta-2 Microglobulin, Serum < OR = 2.51 mg/L 3.94 Immunoglobulin G 600 - 1,540 mg/dL 369 Immunoglobulin A 70 - 320 mg/dL 55 Immunoglobulin M 50 - 300 mg/dL 21 Dwale/Lambda light chains free with ratio 0.26 - 1.65 25.11 Dwale light chain, free 3.3 - 19.4 mg/L [...] M-Priyank Not Observed g/dL 0.2 (H) Free Dwale Lt Chains,S 3.30 - 19.40 mg/L 90.7 (H) 145.00 ! Dwale light chain, free 3.3 - 19.4 mg/L 138.3 (H) 121.8 (H) 121.0 (H) 151.0 (H) 178.3 (H) Lambda light chain, free 5.7 - 26.3 mg/L 7.8 6.6 6.6 8.1 7.1 Free Lambda LC, Quant 5.71 - 26.30 mg/L 6.98 Dwale/Lambda Ratio,S 0.26 - 1.65 13.74 (H) 20.77 ! Dwale/Lambda light chains free with ratio 0.26 - [...] 07/17/19 0000 Age: 78 Sex: Female MR#: [id number] Loc: RADIOLOGY REPORT Order #[id number] PET PET/CT Whole Body-OP Use Only Signed [...] marrow is hypocellular or otherwise has detectable monoclonal plasma cell dyscrasia. Her blood count are normal and have been stable. 2) Immunocompetence testing: not done, ALC - 1.7 done at [facility] on 12/11/22. 3) Acquired hypogammaglobulinemia: IgG, [...] FLU shot or Covid-19 boosters. Follow up on 08/27/2023. My total encounter time on 12/16/2022 was 40 minutes which was spent in the activities documented inthe note. This includes time spent prior to the visit and after the visit in direct care of the patient. This time does not include time spent in any separately reportable services. Catherine Todd M.D., FACP jowl trimmer Section of [facility]; Patient Care Team: Elvis Lopez MD as PCP - General (Family Medicine) documented in this encounter Nursing Notes * Falguni Lomeli RN - 12/25/2022 3:00 PM CDT MGUS- Repeat PET. F/u in months with myeloma labs documented in this encounter Plan of Treatment Scheduled Orders Name Type Priority Associated Diagnoses Orde r Schedule Beta 2 microglobulin, serum Lab Routine Multiple myeloma not having achieved remission (CMS/HCC) (HCC) Expected: 06/17/2023, Expires: 12/26/2023 CBC with auto differential Lab Routine Multiple myeloma not having achieved remission (CMS/HCC) (HCC) Expected: 06/17/2023, Expires: 12/26/2023 Comprehensive metabolic panel Lab Routine Multiple myeloma not having achieved remission (CMS/HCC) (HCC) Expected: 06/17/2023, Expires: 12/26/2023 IgA Lab Routine Multiple myeloma not having achieved remission (CMS/HCC) (HCC) Expected: 06/17/2023, Expires: 12/26/2023 IgG Lab Routine Multiple myeloma not having achieved remission (CMS/HCC) (HCC) Expected: 06/17/2023, Expires: 12/26/2023 IgM Lab Routine Multiple myeloma not having achieved remission (CMS/HCC) (HCC) Expected: 06/17/2023, Expires: 12/26/2023 Lactate dehydrogenase (LD) Lab Routine Multiple myeloma not having achieved remission (CMS/HCC) (HCC) Expected: 06/17/2023, Expires: 12/26/2023 Protein electrophoresis with reflex, serum Lab Routine Multiple myeloma not having achieved remission (CMS/HCC) (HCC) Expected: 06/17/2023, Expires: 12/26/2023 KAPPA/LAMBDA LIGHT CHAINS FREE WITH RATIO, SERUM Lab Routine Multiple myeloma not having achieved remission (CMS/HCC) (HCC) Expected: 06/17/2023, Expires: 12/26/2023 Protein electrophoresis, urine 24 hour with immunofixation Lab Routine Multiple myeloma not having achieved remission (CMS/HCC) (HCC) Expected: 06/17/2023, Expires: 12/26/2023 documented as of this encounter Results * PET/CT FDG Skull to Thigh (01/08/2023 2:29 PM CDT) Anatomical Region Laterality Modality N/A Positron Emissio n Tomography (PET) 01/08/2023 2:34 PM CDT Addenda Addendum by Gopi Alaniz MD on 01/11/2023 8:13 AM CDT ADDENDUM: This addendum report supersedes the original report dated 01/08/2023. ??A PET-CT from 07/17/2019 is now available for comparison. ?? The uptake surrounding the left shoulder has slightly decreased with an SUV of 4.6 currently compared to 7.5 previously. ??This does appear to correspond to the surrounding musculature and is not likely related to myeloma. ??No lytic lesion identified in the shoulder. ??The noncalcified 4 mm nodule in the right apex seen on the current study showing no FDG uptake was on the 2019 study indicating long-term stability. ??The noncalcified 3 mm nodule in the left lower lobe may have been present previously. ??Continued attention on follow-up imaging recommended. ??The low-attenuation liver lesion is present in 2019 and shows no abnormal FDG uptake. ??This is likely a cyst or hemangioma. ??The uptake in the left maxilla is once again seen likely related to dental disease. END OF ADDENDUM REPORT THIS IS AN ELECTRONICALLY VERIFIED FINAL REPORT 01/11/2023 8:13 AM ??Addendum Electronically signed by Gopi Alaniz M.D. LB: AUDREY D: ??01/11/2023 8:13 AM T: ??01/11/2023 8:13 AM Report ID: [id number] Reading Location: ??[id number] Narrative 01/08/2023 2:57 PM CDT EXAM DESCRIPTION: ?? PET/CT FDG SKULL TO THIGH RADIOPHARMACEUTICAL: 10.3 ??mCi F-18 Fluorodeoxyglucose (FDG) via a ??left antecubital vein ??IV site REASON FOR STUDY: Elevated light chains. ??Evaluation for multiple myeloma. TECHNIQUE: The patient's fasting blood glucose level, measured by glucometer before injection of FDG, was ??108 ??mg/dL. After intravenous administration of FDG, noncontrast CT images were obtained for attenuation correction and for fusion with emission PET images to allow for anatomical localization of PET findings. Emission PET images were then obtained. The reported standardized uptake value maximum (SUVmax) values have been normalized to body weight (SUVbw). The area imaged spanned the region from the ??skull base ??to the ?? proximal thighs . ??The time from injection of FDG to start of imaging was ??61 ?? minutes. COMPARISON: None available FINDINGS: For reference, the maximum SUV of the ascending thoracic aorta is ?? 2.8 . ??The maximum SUV of the liver is ??3.5 . Head: Normal FDG uptake is seen in the included portion of the brain. Neck: There is focal uptake within the left lateral maxillary incisor with an associated periapical lucency. ??No hypermetabolic cervical lymphadenopathy. Chest: No hypermetabolic lymphadenopathy in the axillae, mediastinum, or ella. ?? Noncalcified 4 mm nodule in the right apex shows no abnormal FDG uptake. ?? Noncalcified 3 mm nodule in the left lower lobe shows no abnormal FDG uptake. ?Heart size is top-normal. ??Trace coronary artery calcification. ??No pericardial effusion. ??No pleural effusion. ?Diffuse linear uptake throughout the esophagus is likely related to esophagitis. Correlation with symptoms recommended. ?? Abdomen and Pelvis: Low-attenuation 1.1 cm left hepatic lobe lesion shows no abnormal FDG uptake and likely represents a cyst or hemangioma. ?No calcified gallstones. ?? The spleen is normal. ?? Normal pancreas without focal FDG activity. ?? No focal hypermetabolic adrenal lesion. ?? Normal genitourinary activity. ?? Circumaortic left renal vein. ??The bladder is decompressed and incompletely evaluated. ? Normal gastrointestinal activity is seen. ?? No hypermetabolic lymph nodes in the abdomen or pelvis. ?Atherosclerotic calcification of the abdominal aorta without aneurysm. ? Bones: No acute or aggressive appearing osseous lesions. ?? Moderate uptake surrounding the shoulders is felt to be degenerative. ??No hypermetabolic lytic lesions identified. IMPRESSION: No hypermetabolic lytic osseous lesions. Noncalcified pulmonary nodules measuring up to 4 mm show no abnormal FDG uptake but are small and may be below PET resolution. ??Attention on follow-up imaging is recommended. Diffuse linear uptake throughout the esophagus is likely related to esophagitis. Correlation with symptoms recommended. Focal uptake within the left lateral maxillary incisor with associated periapical lucency is most consistent with periodontal disease. ?? THIS IS AN ELECTRONICALLY VERIFIED FINAL REPORT 01/08/2023 2:57 PM - Electronically signed by ??Gopi Alaniz M.D. LB: LB D: ??01/08/2023 2:57 PM T: ??01/08/2023 2:57 PM Report ID: [id number] Reading Location: ??[id number] Procedure Note Gopi Alaniz MD - 01/08/2023 EXAM DESCRIPTION: PET/CT FDG SKULL TO THIGH RADIOPHARMACEUTICAL: 10.3 mCi F-18 Fluorodeoxyglucose (FDG) via a left antecubital vein IV site REASON FOR STUDY: Elevated light chains. Evaluation for multiple myeloma. TECHNIQUE: The patient's fasting blood glucose level, measured byglucometer before injection of FDG, was 108 mg/dL. After intravenous administrationof FDG, noncontrast CT images were obtained for attenuation correction andfor fusion with emission PET images to allow for anatomical localization ofPET findings. Emission PET images were then obtained. The reportedstandardized uptake value maximum (SUVmax) values have been normalized to body weight (SUVbw). The area imaged spanned the region from the skull base to the proximal thighs . The time from injection of FDG to start of imaging was61 minutes. COMPARISON: None available FINDINGS: For reference, the maximum SUV of the ascending thoracic aortais 2.8 . The maximum SUV of the liver is 3.5 . Head: Normal FDG uptake is seen in the included portion of the brain. Neck: There is focal uptake within the left lateral maxillary incisor with an associated periapical lucency. No hypermetabolic cervicallymphadenopathy. Chest: No hypermetabolic lymphadenopathy in the axillae, mediastinum, or ella. Noncalcified 4 mm nodule in the right apex shows no abnormal FDG uptake. Noncalcified 3 mm nodule in the left lower lobe shows no abnormal FDGuptake. Heart size is top-normal. Trace coronary artery calcification. No pericardial effusion. No pleural effusion. Diffuse linear uptake throughout the esophagus is likely related to esophagitis. Correlationwith symptoms recommended. Abdomen and Pelvis: Low-attenuation 1.1 cm left hepatic lobe lesion shows no abnormal FDGuptake and likely represents a cyst or hemangioma. No calcified gallstones.The spleen is normal. Normal pancreas without focal FDG activity. No focal hypermetabolic adrenal lesion. Normal genitourinary activity.Circumaortic left renal vein. The bladder is decompressed and incompletely evaluated. Normal gastrointestinal activity is seen. No hypermetabolic lymph nodesin the abdomen or pelvis. Atherosclerotic calcification of the abdominal aorta without aneurysm. Bones: No acute or aggressive appearing osseous lesions. Moderate uptake surrounding the shoulders is felt to be degenerative. No hypermetaboliclytic lesions identified. IMPRESSION: No hypermetabolic lytic osseous lesions. Noncalcified pulmonary nodules measuring up to 4 mm show no abnormal FDG uptake but are small and may be below PET resolution. Attention onfollow-up imaging is recommended. Diffuse linear uptake throughout the esophagus is likely related to esophagitis. Correlation with symptoms recommended. Focal uptake within the left lateral maxillary incisor with associated periapical lucency is most consistent with periodontal disease. THIS IS AN ELECTRONICALLY VERIFIED FINAL REPORT 01/08/2023 2:57 PM - Electronically signed by Gopi Alaniz M.D. LB: AUDREY Report ID: [id number] Reading Location: [place] [address] Catherine Todd MD IM PET PROCEDURES Edited R esult - Final documented in this encounter Visit Diagnoses Diagnosis Multiple myeloma not having achieved remission (CMS/HCC) (HCC)- Primary Multiple myeloma not having achieved remission (CMS/HCC) (HCC) documented in this encounter Discontinued Medications Medication Sig Discontinue Reason Start Date End Da te naltrexone (LOW DOSE) 4.5 mg capsule Take 4.5 mg by mouth daily 12/25/2022 ergocalciferol (VITAMIN D) 50,000 unit capsule TK 1 C PO Q 2 WEEKS UTD 05/27/2018 12/25/2022 diphenhydrAMINE (BENADRYL) 25 mg capsule Take 25 mg by mouth nightly 12/25/2022 clobetasol (TEMOVATE) 0.05 % ointment Apply topically 2 (two) times a day 12/25/2022 quinapril (ACCUPRIL) 20 mg tablet TK 2 TS PO D 07/31/2018 12/25/2022 cetirizine (ZyrTEC) 10 mg tablet Take 10 mg by mouth daily 12/25/2022 naproxen (ANAPROX,ALEVE) 220 mg tablet Take by mouth 2 (two) times a day with meals 12/25/2022 traMADoL (ULTRAM) 50 mg tablet TK 1 T PO D PRN P 03/19/2020 12/25/2022 documented as of this encounter Historical Medications * This list may reflect changes made after this encounter. triamcinolone (KENALOG) 0.1 % cream APPLY TOPICALLY TO THE AFFECTED AREA TWICE DAILY 10/20/2022 lidocaine (LIDODERM) 5 % APPLY 1 PATCH TOPICALLY TO THE SKIN DAILY. LEAVE ON MOST PAINFUL AREA FOR UP TO 12 HOURS 10/20/2022 ramipriL (ALTACE) 10 mg capsule Take 1 capsule (10 mg total) by mouth daily 12/11/2022 Savella 25 mg tablet TAKE 1 TABLET BY MOUTH TWICE DAILY FOR FIBROMYALGIA 12/23/2022 added in this encounter Orders Appointment Requests Count Last Ordered Date Fi rst Ordered Date ONCBCN CLINIC APPOINTMENT REQUEST 2 024 12/25/2022 documented in this encounter Care Teams Business Coordinator Relationship Specialty Start Date End Date Yosi Whaley MD [address] [place] [id number] PCP - General 07/14/19 02/03/23 Yosi Whaley MD [address] [place] [id number] 07/14/19 02/03/23 documented as of this encounter
--- OUTSIDE RECORDS SUMMARY | 2024-06-26 01:35 | XMS_ITS | Clinical Summary ---
Author Organization [facility] [address] Address [address] [place] [address] Care Team Providers Care Audio Installer Name Role Phone Elvis Lopez MD Primary Care Provider [phone] Catherine Todd MD Unavailable [phone] Allergies Active Allergy Reactions Criticality Noted Date Comments Doxycycline Monohydrate Unknown 08/29/2018 Alprazolam Other (See comments) Low 08/29/2018 Sleeps all day Amitriptyline Other (See comments) Low 08/29/2018 Sleeps all day Valdecoxib Unknown 08/29/2018 Dextran 70-Hypromellose (Pf) Unknown 019 Brompheniramine-Phenylephrine Unknown 2018 Desloratadine Unknown 08/29/2018 Codeine Meperidine Unknown 08/29/2018 Diclofenac Unknown 08/29/2018 Duloxetine Unknown 08/29/2018 Phenylephrine-Guaifenesin Unknown 08/29/2018 Inpsxvocxfzwfsst-Ri-Hdwuaercvm Other (Se e comments) Low 08/29/2018 Hard [...] 50 mcg/actuation nasal spray Active glucosam velasquez jvj-ogukavyts-V-Mn 309-778-05-3 mg capsule Active hydroCHLOROthiazid e (HYDRODIURIL) 25 [...] nightly as needed 06/23/19 22 Active omega 6-scf-qpd-fish oil (Fish OiL) 100-160-1,000 mg capsule Take [...] be different from the original. Labs at [facility] prior to 3 mo f / u. 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 Nuclear sclerotic cataract 03/03/2016 Lumbago 12/25/2011 Hypertension 01/12/2011 Raynaud's disease 01/12/2011 Hypercholesterolemia 01/12/2011 Thyroid activity decreased 01/12/2011 Environmental allergies 01/12/2011 Regular astigmatism 01/12/2011 Knee pain 11/07/2010 Pain of foot 11/07/2010 Corneal scar 01/13/2010 Encounters Date Type Department Care Team Description 04/13/2024 8:30 AM CDT Office Visit [facility] [address] [place] [address] Lawrence Danielson MD Nonrheumatic mitral valve regurgitation (Primary Dx) from Last 3 Months Immunizations Name Administration Dates Next Due Influenza, Trivalent, High D ose, Split, Preservative Free, Intramuscular 03/25/2018 Influenza, Unspecified 03/31/2018 Pneumococcal, Unspecified 03/31/2018 Surgical History Surgery Date Site/Laterality Comments COLONOSCOPY TONSILLECTOMY/ADENOIDECTOMY FOOT SURGERY HYSTERECTOMY BLADDER REPAIR Medical History Medical History Date Comments Borderline glaucoma, open an gle with borderline findings Open Angle Borderline Glauco ma In Both Eyes - (Added by TW Conv) Age-related nuclear cataract Sen ile nuclear cataract - (Added by TW Conv) Open angle with borderline f indings and low glaucoma risk in both eyes Borderline glaucoma, open a ngle with borderline findings, bilateral - (Added by TW Conv) Anemia Hypercholesteremia Hypertension Chronic kidney disease Thyroid disease Multiple myeloma (HCC) Heart murmur Sleep apnea Family History Medical History Relation Name Comments Lung cancer Brother 1 Heart failure Brother 2 Heart disease Father Heart failure Father Thyroid disease Mother Heart disease Sister enlarged heart Sister Relation Name Status Comments Brother 1 Alive Brother 2 Father (Age 94) Mother (Age 48) Sister Social History Tobacco Use Types Packs/Day [...] on file Legal Sex Female 3:01 AM MANUFACTURER AGENT Gender Identity Female 06/07/2020 11:17 AM MANUFACTURER AGENT Sexual Orientation Straight 06/07/2020 11 :17 AM MANUFACTURER AGENT Obstetrics History Last Filed Vital Signs Vital Sign Reading [...] 04/13/2024 8:36 AM CDT Plan of Treatment Health Maintenance Due Date Last Done Comments Depression Screening 1940 Osteoporosis Screening-Bone Density Scan 1940 Pneumococcal vaccine 65+ (1 of 2 - PCV) 1946 1 DTaP/Tdap/Td Vaccine (1 - Tdap) 12/30/1951 Hepatitis B Screening 1958 Zoster Vaccine (1 of 2) 12/30/1959 Well Visit 65+ 2005 Influenza Vaccine (#1) 2024 03/31/2018, 2017 Fall Risk Assessment 10/31/2024 11/01/2023 Insurance [facility] [id number] [facility] [id number] [facility] [id number] Care Teams Audio Installer Relationship Specialty Start Date End Date Elvis Lopez MD [address] [place] [address] [place] [address] PCP - General Family Medicine 02/04/23 Catherine Todd MD [address] DIV IM BONE MARROW TRANSPLANT, [address] [place] [address] Medical Oncologist/Truckload Owner Operator Hematology 08/27/23
--- OUTSIDE RECORDS SUMMARY | 2024-06-26 01:35 | XMS_ITS | Encounter Summary ---
Author Organization [facility] Healthcare Address [address] [place] [address] Care Team Providers Care Well Reactivator Operator Name Role Phone Elvis Lopez MD Primary Care Provider [phone] Catherine Todd MD Unavailable [phone] Reason for Visit * Reason Comments Valve Disorder Hypertension Annual f/u Encounter Details Date Type Department Care Team (Latest Contact Info) Description 04/13/2024 8:30 AM CDT Office Visit [facility] Cardiology [address] [facility] [address] [address] Lawrence Danielson MD [address] [email or web address] [address] [place] [address] Nonrheumatic mitral valve regurgitation (Primary Dx) Social History Tobacco Use Types [...] on file Legal Sex Female 3:01 AM WORKERS COMPENSATION ADMINISTRATOR Gender Identity Female 06/07/2020 11:17 AM WORKERS COMPENSATION ADMINISTRATOR Sexual Orientation Straight 06/07/2020 11 :17 AM WORKERS COMPENSATION ADMINISTRATOR documented as of this encounter Last Filed Vital Signs Vital Sign Reading Time Taken Comments Blood Pressure 118/62 04/13/2024 8:36 AM CDT Pulse 65 04/13/2024 8:36 AM CDT Temperature - - Respiratory Rate - - Oxygen Saturation 98% 04/13/2024 8:36 AM CDT Inhaled Oxygen Concentration - - Weight 97.1 kg (214 lb) 04/13/2024 8:36 AM CDT Height 172.7 cm (5' 8 ) 04/13/2024 8:36 AM CDT Body Mass Index 32.54 04/13/2024 8:36 AM CDT documented in this encounter Progress Notes * Lawrence Danielson MD - 04/13/2024 8:30 AM CDT [facility] FOLLOW UP 04/13/2024 Sloane Elise is a 83 y.o. female who presents for follow up of mitral valve regurgitation. This is a patient that has been seen in our office for several years by Dr. Almonte because of mitral valve regurgitation. The patient is not known to have any symptoms or problems related to her MR which is graded as hawk-oq-eegbwnwx by echocardiogram. She also has some elevation in pulmonary artery pressure not clear that that is related to her MR. She has been followed by medical oncology as well for monoclonal gammopathy of unknown significance. That has progressed to multiple myeloma with the diagnosis being made in 2023 that is now being treated with chemotherapy. She presents today for scheduled appointment. This is my 1st visit with this patient following Dr. Almonte's departure from the practice. She has no cardiovascular symptoms or concerns. Her last visit here was with the nurse practitioner 1 year ago and she has not had any cardiac issues. She and I talked about her new diagnosis of multiple myeloma. She lives in a independent living facility with her . She states that recently she had a unfavorable reaction to combination of influenza andCOVID vaccine and had some shaking of her body and weakness of her legs and had a fall in her residence. REVIEW OF SYSTEMS General ROS: negative for - chills, fatigue, fever, malaise, night sweats, weight gain or weight loss Psychological ROS: negative for - anxiety, depression, memory difficulties or sleep disturbances Ophthalmic ROS: negative for - blurry vision, decreased vision, loss of vision or scotomata ENT ROS: negative for - epistaxis, headaches, hearing change, nasal congestion, nasal discharge, sore throat, vertigo or visual changes Hematological and Lymphatic ROS: negative for - bleeding problems, blood clots, bruising, fatigue or weight loss Endocrine ROS: negative for - hot flashes, palpitations, polydipsia/polyuria or unexpected weight changes Respiratory ROS: negative for - cough, hemoptysis, orthopnea, shortness of breath, tachypnea or wheezing Cardiovascular ROS: negative for - chest pain, dyspnea on exertion, edema, irregular heartbeat, loss of consciousness, murmur, orthopnea, palpitations, paroxysmal nocturnal dyspnea, rapid heart rate or shortness of breath Gastrointestinal ROS: negative for - abdominal pain, appetite loss, blood in stools, constipation, diarrhea, gas/bloating, heartburn, hematemesis, melena or nausea/vomiting Genito-Urinary ROS: negative for - dysuria, erectile dysfunction or hematuria Musculoskeletal ROS: negative for - joint pain, muscle pain or muscular weakness Dermatological ROS: negative for dry skin, eczema, pruritus and rash HOME MEDICATIONS Current Outpatient Medications: acetaminophen ER (Tylenol Arthritis Pain) 650 mg 8 hr tablet, Take 1 tablet (650 mg total) by mouthevery 8 (eight) hours as needed for pain, Disp: , Rfl: acyclovir (ZOVIRAX) 400 mg tablet, Take 1 tablet (400 mg total) by mouth 2 (two) times a day, Disp:, Rfl: aspirin 81 mg capsule, Take by mouth, Disp: , Rfl: atorvastatin (LIPITOR) 20 mg tablet, Take 1 tablet (20 mg total) by mouth nightly at bedtime, Disp:, Rfl: dexAMETHasone (DECADRON) 4 mg tablet, Take 5 tablets by mouth weekly on every Wednesday, Disp: , Rfl: eszopiclone (LUNESTA) 3 mg tablet, Take by mouth nightly as needed, Disp: , Rfl: ezetimibe (ZETIA) 10 mg tablet, TK 1 T PO QD, Disp: , Rfl: 3 fluticasone (FLONASE) 50 mcg/actuation nasal spray, , Disp: , Rfl: gabapentin (NEURONTIN) 600 mg tablet, , Disp: , Rfl: glucosam velasquez axa-kusaldbrx-Q-Mn 441-857-74-3 mg capsule, , Disp: , Rfl: hydroCHLOROthiazide (HYDRODIURIL) 25 mg tablet, TK 1 T PO QD, Disp: , Rfl: 2 levothyroxine (SYNTHROID, LEVOTHROID) 50 mcg tablet, TK 1 T PO QD, Disp: , Rfl: 3 lidocaine (LIDODERM) 5 %, APPLY 1 PATCH TOPICALLY TO THE SKIN DAILY. LEAVE ON MOST PAINFUL AREA FORUP TO 12 HOURS, Disp: , Rfl: metFORMIN XR (GLUCOPHAGE XR) 500 mg 24 hr tablet, , Disp: , Rfl: metoprolol XL (TOPROL-XL) 100 mg 24 hr tablet, TK 1 T PO D, Disp: , Rfl: 3 metroNIDAZOLE 1 % gel with pump, Apply topically, Disp: , Rfl: montelukast (SINGULAIR) 10 mg tablet, TK 1 T PO D, Disp: , Rfl: 3 MULTIVITAMIN ORAL, Take by mouth, Disp: , Rfl: omega 8-fbo-vta-fish oil (Fish OiL) 100-160-1,000 mg capsule, Take by mouth, Disp: , Rfl: omeprazole (PriLOSEC) 20 mg capsule, Take 1 capsule (20 mg total) by mouth daily, Disp: , Rfl: ondansetron ODT (ZOFRAN-ODT) 8 mg disintegrating tablet, Dissolve 1 tablet on top of tongue then swallow with saliva every 8 hours as needed for nausea or vomiting, Disp: , Rfl: ramipriL (ALTACE) 10 mg capsule, Take 1 capsule (10 mg total) by mouth daily, Disp: , Rfl: Savella 25 mg tablet, TAKE 1 TABLET BY MOUTH TWICE DAILY FOR FIBROMYALGIA, Disp: , Rfl: sulfamethoxazole-trimethoprim (BACTRIM DS) 800-160 mg per tablet, Take 1 tablet by mouth twice daily on Wednesday and Wednesday, Disp: , Rfl: triamcinolone (KENALOG) 0.1 % cream, APPLY TOPICALLY TO THE AFFECTED AREA TWICE DAILY, Disp: , Rfl: TURMERIC ORAL, Take by mouth, Disp: , Rfl: LABS AND OTHER DIAGNOSTIC TESTS No results found for: CHOL No results found for: HDL No results found for: LDLCALC No results found for: TRIG No results found for: CHOLHDL Lab Results Component Value Date WBC 3.7 (L) 12/03/2023 HGB 11.4 (L) 12/03/2023 HCT 33.5 (L) 12/03/2023 MCV 94.9 12/03/2023 No lab exists for component: LABALBU PHYSICAL EXAM Vitals BP 118/62 (BP Location: Left arm, Patient Position: Sitting) Pulse 65 Ht 172.7 cm (5' 8 ) Wt 97.1 kg (214 lb) SpO2 98% BMI 32.54 kg/m?? Physical Examination: General appearance - alert, well appearing, and in no distress, oriented to person, place, and time and acyanotic, in no respiratory distress Mental status - affect appropriate to mood Eyes - extraocular eye movements intact, sclera anicteric, no pallor Ears - external earsappear normal, hearing grossly normal bilaterally Nose - normal and patent, no erythema or discharge Mouth - mucous membranes moist, pharynx appears normal, dental hygiene good and tongue normal Neck - supple, no significant neck masses, carotids upstroke normal bilaterally, no bruits, no JVD Chest - clear to auscultation, no wheezes, rales or rhonchi, symmetric air entry, no tachypnea, retractions or cyanosis Heart - normal rate, regular rhythm, normal S1, S2, no murmurs, rubs, clicks or gallops, no JVD Abdomen - soft, nontender, nondistended, no masses or organomegaly bowel sounds normal Neurological - alert, oriented, normal speech, no focal findings or movement disorder noted Musculoskeletal - no joint tenderness, deformity or swelling, no muscular tenderness noted Extremities - peripheral pulses normal, no pedal edema, no clubbing or cyanosis Skin - normal coloration and turgor, no rashes, no suspicious skin lesions noted ASSESSMENT Sloane was seen today for valve disorder and hypertension. Diagnoses and all orders for this visit: Nonrheumatic mitral valve regurgitation PLAN/RECOMMENDATIONS The patient is stable asymptomatic with mitral regurgitation that is not even audible on physical exam. I can see her annually or p.r.n. Lawrence Danielson MD documented in this encounter Plan of Treatment Not on file documented as of this encounter Visit Diagnoses Diagnosis Nonrheumatic mitral valve regurgitation- Primary documented in this encounter Discontinued Medications Medication Sig Discontinue Reason Start Date End Da te docosahexanoic acid/epa (FISH OIL ORAL) Take by mouth Duplicate order 04/13/2024 documented as of this encounter Historical Medications * This list may reflect changes made after this encounter. sulfamethoxazole-tri methoprim (BACTRIM DS) 800-160 mg per tablet Take 1 tablet by mouth twice daily on Wednesday and Wednesday01/14/2024 ondansetron ODT (ZOFRAN-ODT) 8 mg disintegrating tablet Dissolve 1 tablet on top of tongue then swallow with saliva every 8 hours as needed for nausea or vomiting 02/09/2024 dexAMETHasone (DECADRON) 4 mg tablet Take 5 tablets by mouth weekly on every Wednesday03/14/2024 acyclovir (ZOVIRAX) 400 mg tablet Take 1 tablet (400 mg total) by mouth 2 (two) times a day 01/14/2024 metFORMIN XR (GLUCOPHAGE XR) 500 mg 24 hr tablet 04/10/2024 aspirin 81 mg capsule Take by mouth added in this encounter Care Teams Well Reactivator Operator Relationship Specialty Start Date End Date Elvis Lopez MD [facility] [place] [address] PCP - General Family Medicine 02/04/23 Catherine Todd MD [address] DIV IM BONE MARROW TRANSPLANT, [address] [place] [address] Medical Oncologist/Personnel Quality Assurance Auditor Hematology 08/27/23 documented as of this encounter
--- OUTSIDE RECORDS SUMMARY | 2024-06-26 01:35 | XMS_ITS | Encounter Summary ---
Author Organization [facility] Healthcare Address [address] [place] [address] Care Team Providers Care Practice Office Associate Name Role Phone Elvis Lopez MD Primary Care Provider [phone] Catherine Todd MD Unavailable [phone] Reason for Referral * Diagnostic Imaging (Routine) - Closed Specialty Diagnoses / Procedures Referred By Contac t Referred To Contact Diagnoses Multiple myeloma not having achieved remission (CMS/HCC) (HCC) Procedures XR Osseous Survey Complete Catherine Todd MD [address] DIV IM BONE MARROW TRANSPLANT, [address] [address] Phone: tel: fax: [address] [phone] Referral ID Status Reason Start Date Expiration Date Visits Re quested Visits Authorized [id number] Closed 08/27/2023 09/25/2024 1 1 ULAR SHEAR OPERATOR Reason for Visit * Diagnostic Imaging (Routine) - Closed Specialty Diagnoses / Procedures Referred By Contac t Referred To Contact Diagnoses Multiple myeloma not having achieved remission (CMS/HCC) (HCC) Procedures XR Osseous Survey Complete Catherine Todd MD [address] DIV IM BONE MARROW TRANSPLANT, [address] [address] Phone: tel: fax: [address] [phone] Referral ID Status Reason Start Date Expiration Date Visits Re quested Visits Authorized [id number] Closed 08/27/2023 09/25/2024 1 1 Encounter Details Date Type Department Care Team (Latest Contact Info) Description 08/27/2023 2:52 PM CIRCULAR SHEAR OPERATOR - 08/27/2023 11:59 PM CIRCULAR SHEAR OPERATOR Hospital Encounter [facility] 1 DIAG IMG [address] [place], [place] [id number] Multiple myeloma not having achieved remission (CMS/HCC) (HCC) Discharge Disposition: Discharge to home or self [...] on file Legal Sex Female 3:01 AM CIRCULAR SHEAR OPERATOR Gender Identity Female 06/07/2020 11:17 AM CIRCULAR SHEAR OPERATOR Sexual Orientation Straight 06/07/2020 11 :17 AM CIRCULAR SHEAR OPERATOR documented as of this encounter Medications at Time of Discharge [...] (NEURONTIN) 600 mg tablet 12/02/2020 glucosam velasquez afk-fmhljiumh-C- [place] 367-028-05-3 mg capsule hydroCHLOROthiaz angela (HYDRODIURIL) 25 mg [...] 08/18/2018 MULTIVITAMIN ORAL Take by mouth omega 9-imv-xxo-fish oil (Fish OiL) 100-160-1,000 mg capsule Take [...] or self care documented in this encounter Plan of Treatment Not on file documented as of this encounter Procedures Procedure Name Priority Date/Time Associated Diagnosis Comments XR OSSEOUS SURVEY COMPLETE 12 MONTHS AND OLDER Schedule Routine, Read Routine (OP Routine) 08/27/2023 3:11 PM CIRCULAR SHEAR OPERATOR Multiple myeloma not having achieved remission (CMS/HCC) (HCC) documented in this encounter Results * XR Osseous Survey Complete (08/27/2023 3:11 PM CIRCULAR SHEAR OPERATOR) Anatomical Region Laterality Modality Body N/A Computed [...] AM T: ??08/29/2023 11:50 AM Report ID: [id number] Reading Location: [id number] Procedure Note Lawrence Mosqueda MD - 08/29/2023 [...] Lawrence Mosqueda M.D. MF: [id number] Report ID: [id number] Reading Location: [place] [address] us Catherine Todd MD IMG XR PROCEDURES Final Res ult documented in this encounter Visit Diagnoses Diagnosis Multiple myeloma not having achieved remission (CMS/HCC) (HCC) documented in this encounter Care Teams Practice Office Associate Relationship Specialty Start Date End Date Elvis Lopez MD [facility] [place] [address] PCP - General Family Medicine 02/04/23 Catherine Todd MD [address] DIV IM BONE MARROW TRANSPLANT, [address] [place] [address] Medical Oncologist/Safety Instruction Police Officer Hematology 08/27/23 documented as of this encounter
--- OUTSIDE RECORDS SUMMARY | 2024-06-26 01:35 | XMS_ITS | Encounter Summary ---
Author Organization [facility] Healthcare Address [address] [place] [address] Care Team Providers Care Technical Training Coordinator Name Role Phone Elvis Lopez MD Primary Care Provider [phone] Catherine Todd MD Unavailable [phone] Encounter Details Date Type Department Care Team (Late st Contact Info) Description 10/21/2023 Telephone [facility] Radiology [address] [place] [address] Oly Lord RN Social History Tobacco Use [...] on file Legal Sex Female 3:01 AM DIRECT SUPPORT STAFF Gender Identity Female 06/07/2020 11:17 AM DIRECT SUPPORT STAFF Sexual Orientation Straight 06/07/2020 11 :17 AM DIRECT SUPPORT STAFF documented as of this encounter Miscellaneous Notes * Telephone Encounter - Oly Lord RN - 10/21/2023 10:33 AM CDT [facility]. Scheduled BMB/asp on 11-01-[address] Todd's office. Appt details instructions relayed to patient by ref team. K RN to send my chart message and will call the Wednesday prior to review all details and instructions with the patient Date order received: 10-18-23 Referring MD office: Dr Todd (Falguni Lomeli, FERNANDO) Date scheduled: 11-01-23 Location: [facility] ([address] [facility] [place] [address]; Entrance A) Registration time: 1:00 pm in outpatient registration/admitting (rt hand corner of [facility]) Procedure time: 2:00 pm Instructed on NPO instructions: yes, NPO after 6:00 am on 11-01-23; ok to take any necessary meds with small sips of water Indicated local city driver (family/friend) required: yes Anticoagulant/Antiplatelet use: ASA 81 mg Lab work completed: 08-27-23 Signed/held orders 10-18-23 Insurance PA needed: Yes-to be obtained by referring office as per protocol documented in this encounter Plan of Treatment Not on file documented as of this encounter Visit Diagnoses Not on filedocumented in this encounter Care Teams Technical Training Coordinator Relationship Specialty Start Date End Date Elvis Lopez MD [facility] [address] PCP - General Family Medicine 02/04/23 Catherine Todd MD [address] DIV IM BONE MARROW TRANSPLANT, [address] [place] [address] Medical Oncologist/Parking Technician Hematology 08/27/23 documented as of this encounter
--- OUTSIDE RECORDS SUMMARY | 2024-06-26 01:35 | XMS_ITS | Encounter Summary ---
Author Organization [facility] Address [address] [place] [address] Phone Care Team Providers Care Manager Access Name Role Phone Yosi Whaley MD Primary Care Provider [phone] Yosi Whaley MD Unavailable Encounter Details Date Type Department Care Team (Late st Contact Info) Description 12/11/2022 Telephone [facility] [address] [facility] [address] [place] [phone] Falguni Lomeli RN Social History Tobacco Use [...] on file Legal Sex Female 3:01 AM UROLOGY SURGEON Gender Identity Female 06/07/2020 11:17 AM UROLOGY SURGEON Sexual Orientation Straight 06/07/2020 11 :17 AM UROLOGY SURGEON documented as of this encounter Miscellaneous Notes * Telephone Encounter - Falguni Lomeli RN - 12/11/2022 8:35 AM CDT Patient called stating [facility] needed new lab orders from Dr. Todd. New orders sent documented in this encounter Plan of Treatment Not on file documented as of this encounter Procedures Procedure Name Priority Date/Time Associated Diagnosis Comments KAPPA/LAMBDA LIGHT CHAINS FREE WITH RATIO, SERUM Routine 12/11/2022 8:52 AM CDT Multiple myeloma not having achieved remission (CMS/HCC) (HCC) CBC WITH AUTO DIFFERENTIAL Routine 12/11/2022 8:52 AM CDT Multiple myeloma not having achieved remission (CMS/HCC) (HCC) PROTEIN ELECTROPHORESIS, WITH REFLEX, SERUM Routine 12/11/2022 8:52 AM CDT Multiple myeloma not having achieved remission (CMS/HCC) (HCC) IGA Routine 12/11/2022 8:52 AM CDT Multiple myeloma not having achieved remission (CMS/HCC) (HCC) IGM Routine 12/11/2022 8:52 AM CDT Multiple myeloma not having achieved remission (CMS/HCC) (HCC) IGG Routine 12/11/2022 8:52 AM CDT Multiple myeloma not having achieved remission (CMS/HCC) (HCC) BETA 2 MICROGLOBULIN SERUM Routine 12/11/2022 8:52 AM CDT Multiple myeloma not having achieved remission (CMS/HCC) (HCC) COMPREHENSIVE METABOLIC PANEL Routine 12/11/2022 8:52 AM CDT Multiple myeloma not having achieved remission (CMS/HCC) (HCC) documented in this encounter Results * (ABNORMAL) KAPPA/LAMBDA LIGHT CHAINS FREE WITH RATIO, SERUM (12/11/2022 8:52 AM CDT) Horton light chain, free 178.3(H) 3.3 - 19.4 mg/L [facility] Lambda light chain, free 7.1 5.7 - 26.3 mg/L [facility] Horton/Lambda light chains free with ratio 25.11(H) 0.26 - 1.65 [facility] Comment: Free kappa/lambda ratio in serum of normal individuals is 0.26-1.65. Excess production of free kappa or lambda chains can alter this ratio. Monoclonal free light chains are found in serum of patients with multiple myeloma, Waldenstrom's macroglobulinemia, mu-heavy chain disease, primary amyloidosis, light chain deposition disease, monoclonal gammopathy of undetermined significance, and lymphoproliferative disorders. Measurement of free light chain concentration in serum is useful for diagnosis, prognosis, monitoring disease activity and following response to therapy of these disorders. Blood 12/11/2022 8:52 AM CDT 12/11/2022 8:53 AM CDT [facility] - 12/18/2022 8:46 AM CDT FASTING:YES FASTING: YES us Catherine Todd MD LAB BLOOD ORDERABLES Final Result [facility] [address] [place] [address] * (ABNORMAL) Protein electrophoresis with reflex, serum (12/11/2022 8:52 AM CDT) Protein, sr 6.7 6.1 - 8.1 g/dL [facility] ALBUMIN 4.4 3.8 - 4.8 g/dL [facility] Alpha-1 Globulin 0.3 0.2 - 0.3 g/dL [facility] Alpha-2 Globuliin 0.9 0.5 - 0.9 g/dL [facility] Beta-1 globulin 0.4 0.4 - 0.6 g/dL [facility] Beta 2 globulin 0.3 0.2 - 0.5 g/dL [facility] Gamma globulin 0.5(L) 0.8 - 1.7 g/dL [facility] Abnormal protein band 0.2(H) NONE DETECTED g/dL [facility] SPE, interp [facility] Comment: Faint restricted band (M-spike) migrating in the gamma region. Consider serum immunofixation to rule out a monoclonal protein if clinically indicated. Blood 12/11/2022 8:52 AM CDT 12/11/2022 8:53 AM CDT Narrative [facility] - 12/18/2022 8:46 AM CDT FASTING:YES FASTING: YES Catherine Todd MD LAB BLOOD ORDERABLES Final Result Performing Organization Address [facility] Co de Phone Number [facility] [address] [place] [address] * (ABNORMAL) IgM (12/11/2022 8:52 AM CDT) Immunoglobulin M 21(L) 50 - 300 mg/dL [facility] Blood 12/11/2022 8:52 AM CDT 12/11/2022 8:53 AM CDT Narrative [facility] - 12/18/2022 8:46 AM CDT FASTING:YES FASTING: YES Catherine Todd MD LAB BLOOD ORDERABLES Final Result Performing Organization Address [facility] de Phone Number [facility] [address] [place] [address] * (ABNORMAL) IgA (12/11/2022 8:52 AM CDT) Immunoglobulin A 55(L) 70 - 320 mg/dL [facility] Blood 12/11/2022 8:52 AM CDT 12/11/2022 8:53 AM CDT Narrative [facility] - 12/18/2022 8:46 AM CDT FASTING:YES FASTING: YES Catherine Todd MD LAB BLOOD ORDERABLES Final Result Performing Organization Address [facility] de Phone Number [facility] [address] [place] [address] * (ABNORMAL) Beta 2 microglobulin, serum (12/11/2022 8:52 AM CDT) Beta 2 Microglobulin, Serum 3.94(H) < OR = 2.51 mg/L [facility] Blood 12/11/2022 8:52 AM CDT 12/11/2022 8:53 AM CDT Narrative [facility] - 12/18/2022 8:46 AM CDT FASTING:YES FASTING: YES Catherine Todd MD LAB BLOOD ORDERABLES Final Result Performing Organization Address [facility] de Phone Number [facility] [address] [place] [address] * (ABNORMAL) IgG (12/11/2022 8:52 AM CDT) Immunoglobulin G 369(L) 600 - 1,540 mg/dL [facility] Blood 12/11/2022 8:52 AM CDT 12/11/2022 8:53 AM CDT Narrative [facility] - 12/18/2022 8:46 AM CDT FASTING:YES FASTING: YES Catherine Todd MD LAB BLOOD ORDERABLES Final Result Performing Organization Address [facility] Phone Number [facility] [address] [place] [address] * (ABNORMAL) Comprehensive metabolic panel (12/11/2022 8:52 AM CDT) Glucose 100(H) 65 - 99 mg/dL [facility] Comment: ? Fasting reference interval For someone without known diabetes, a glucose value between 100 and 125 mg/dL is consistent with prediabetes and should be confirmed with a follow-up test. BUN 22 7 - 25 mg/dL [facility] Creatinine 0.94 0.60 - 0.95 mg/dL [facility] eGFR 61 > OR = 60 mL/min/1. 73m2 [facility] Comment: The eGFR is based on the CKD-EPI 2020 equation. To calculate the new eGFR from a previous Creatinine or Cystatin C result, go to https://www.kidney.org/professionals/ kdoqi/gfr%5Fcalculator BUN/creat ratio NOT APPLICABLE 6 - 22 (calc) [facility] Sodium 139 135 - 146 mmol/L [facility] Potassium, pl 4.0 3.5 - 5.3 mmol/L [facility] Chloride 99 98 - 110 mmol/L [facility] CO2 29 20 - 32 mmol/L [facility] Calcium 9.6 8.6 - 10.4 mg/dL [facility] Protein, sr 6.7 6.1 - 8.1 g/dL [facility] Albumin 4.7 3.6 - 5.1 g/dL [facility] GLOBULIN 2.0 1.9 - 3.7 g/dL (calc) [facility] Alb/glob ratio 2.4 1.0 - 2.5 (calc) [facility] Bilirubin, total 0.4 0.2 - 1.2 mg/dL [facility] Alk phos 68 37 - 153 U/L [facility] AST 17 10 - 35 U/L [facility] ALT (SGPT) 15 6 - 29 U/L [facility] Blood 12/11/2022 8:52 AM CDT 12/11/2022 8:53 AM CDT Narrative [facility] - 12/18/2022 8:46 AM CDT FASTING:YES FASTING: YES us Catherine Todd MD LAB BLOOD ORDERABLES Final Result [facility] [address] [address] * (ABNORMAL) CBC with auto differential (12/11/2022 8:52 AM CDT) WBC 4.3 3.8 - 10.8 Thousand/u L [facility] RBC, POC 3.79(L) 3.80 - 5.10 Million/uL [facility] Hgb 12.2 11.7 - 15.5 g/dL [facility] Hct 35.8 35.0 - 45.0 % [facility] MCV 94.5 80.0 - 100.0 fL [facility] MCH 32.2 27.0 - 33.0 pg [facility] MCHC 34.1 32.0 - 36.0 g/dL [facility] Rdw 15.0 11.0 - 15.0 % [facility] Platelets 217 140 - 400 Thousand/u L [facility] MPV 10.3 7.5 - 12.5 fL [facility] Neutrophils, abs 2,000 1,500 - 7,800 cells/uL [facility] Lymphocytes, abs 1,733 850 - 3,900 cells/uL [facility] Monocyte abs 434 200 - 950 cells/uL [facility] Eosinophils, abs 112 15 - 500 cells/uL [facility] Basophils, abs 22 0 - 200 cells/uL [facility] Neutrophils 46.5 % [facility] Lymphocyte pct 40.3 % [facility] Monocytes 10.1 % [facility] Eosinophils 2.6 % [facility] Basophils 0.5 % [facility] Blood 12/11/2022 8:52 AM CDT 12/11/2022 8:53 AM CDT Narrative [facility] - 12/18/2022 8:46 AM CDT FASTING:YES FASTING: YES us Catherine Todd MD LAB BLOOD ORDERABLES Final Result [facility] [address] [address] documented in this encounter Visit Diagnoses Diagnosis Multiple myeloma not having achieved remission (CMS/HCC) (HCC)- Primary documented in this encounter Care Teams Manager Access Relationship Specialty Start Date End Date Yosi Whaley MD [address] [place] [address] PCP - General 07/14/19 02/03/23 Yosi Whaley MD [address] [place] [address] 07/14/19 02/03/23 documented as of this encounter
--- OUTSIDE RECORDS SUMMARY | 2024-06-26 01:35 | XMS_ITS | Encounter Summary ---
Author Organization [facility] Address [address] [place] [address] Care Team Providers Care Car Mechanic Name Role Phone Yosi Whaley MD Primary Care Provider [phone] Yosi Whaley MD Unavailable Reason for Referral * MRI/CAT/PET Scan (Routine) - Closed Specialty Diagnoses / Procedures Referred By Sharlene uriarte Referred To Contact Radiology Diagnoses Multiple myeloma not having achieved remission (CMS/HCC) (HCC) Procedures PET/CT FDG Skull to Thigh Catherine Todd MD [address] DIV IM BONE MARROW TRANSPLANT, [address] [address] Phone: tel: fax: [address] [address] Referral ID Status Reason Start Date Expiration Date Visits Re quested Visits Authorized [id number] Closed 12/25/2022 01/24/2024 1 1 Reason for Visit * MRI/CAT/PET Scan (Routine) - Closed Specialty Diagnoses / Procedures Referred By Contdusty t Referred To Contact Radiology Diagnoses Multiple myeloma not having achieved remission (CMS/HCC) (HCC) Procedures PET/CT FDG Skull to Thigh Catherine Todd MD [address] DIV IM BONE MARROW TRANSPLANT, [address] [address] Phone: tel: fax: [address] [place] [address] Referral ID Status Reason Start Date Expiration Date Visits Re quested Visits Authorized [id number] Closed 12/25/2022 01/24/2024 1 1 Encounter Details Date Type Department Care Team (Latest Contact Info) Description 01/08/2023 12:41 PM CDT - 01/08/2023 11:59 PM CDT [facility] [address] [address] Multiple myeloma not having achieved remission (CMS/HCC) [...] on file Legal Sex Female 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 AM 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 Gender Identity Female 06/07/2020 11:17 AM 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 Sexual Orientation Straight 06/07/2020 11 :17 AM 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 documented as of this encounter Medications at Time of Discharge acetaminophen ER (Tylenol Arthritis Pain) 650 mg 8 hr tablet Take 1 tablet (650 mg total) by mouth every 8 (eight) hours as needed for pain eszopiclone (LUNESTA) 3 mg tablet Take by mouth nightly as needed 06/23/2021 ezetimibe (ZETIA) 10 mg tablet TK 1 T PO QD 3 02/27/2019 fluticasone (FLONASE) 50 mcg/actuation nasal spray gabapentin (NEURONTIN) 600 mg tablet 12/02/2020 glucosam velasquez bbf-iapzdppgj-E- [place] [phone] mg capsule hydroCHLOROthiaz angela (HYDRODIURIL) 25 mg [...] 08/18/2018 MULTIVITAMIN ORAL Take by mouth omega 6-bin-ipc-fish oil (Fish OiL) 100-160-1,000 mg capsule Take [...] (FISH OIL ORAL) Take by mouth 4 glucosam velasquez zmk-wyichaacl-U- [place] [phone] mg capsule 3 magnesium oxide 400 mg magnesium tablet Take by mouth 4 metroNIDAZOLE 1 % gel with pump APPLY ONE PUMP TOPICALY TWICE DAILY 11/28/2021 4 vitamin E (AQUASOL E) 400 unit capsule 4 documented as of this encounter Discharge Disposition Disposition Code Departure Means Destination Discharge to home or self care documented in this encounter Plan of Treatment Not on file documented as of this encounter Procedures Procedure Name Priority Date/Time Associated Diagnosis Comments PET/CT FDG SKULL TO THIGH Schedule Routine, Read Routine (OP Routine) 01/08/2023 2:29 PM CDT Multiple myeloma not having achieved remission (CMS/HCC) (HCC) POCT GLUCOSE DEVICE Routine 01/08/2023 12:58 PM CDT documented in this encounter Results * PET/CT FDG Skull [...] showing no FDG uptake was on the 2020 study indicating long-term stability. ??The noncalcified 3 mm nodule in the left lower lobe may have been present previously. ??Continued attention on follow-up imaging recommended. ??The low-attenuation liver lesion is present in 2020 and shows no abnormal FDG uptake. ??This is likely a cyst or hemangioma. ??The uptake in the left maxilla is once again seen likely related to dental disease. END OF ADDENDUM REPORT THIS IS AN ELECTRONICALLY VERIFIED FINAL REPORT 01/11/2023 8:13 AM ??Addendum Electronically signed by Gopi Alaniz M.D. LB: AUDREY D: ??01/11/2023 8:13 AM T: ??01/11/2023 8:13 AM Report ID: [id number] Reading Location: ??[id number] Narrative 01/08/2023 2:57 PM CDT EXAM DESCRIPTION: [...] PM T: ??01/08/2023 2:57 PM Report ID: [id number] Reading Location: ??[id number] Procedure Note Gopi Alaniz MD - 01/08/2023 [...] Gopi Alaniz M.D. LB: AUDREY Report ID: [id number] Reading Location: [id number] us Catherine Todd MD IMG PET PROCEDURES Edited R esult - Final * POCT glucose (01/08/2023 12:58 PM CDT) Glucose, POC 108 70 - 199 mg/dL [facility] Comment:Testing performed by : [facility], [address] [place] [address]., [id number] Blood 01/08/2023 12:5 8 PM CDT 01/08/2023 12:58 PM CDT us Akbar Pittman Jr., MD LAB POCT ORDERABLES - DEVICE Final Result [facility] [address] [facility] Department [place] [address] documented in this encounter Visit Diagnoses Diagnosis Multiple myeloma not having achieved remission (CMS/HCC) (HCC) documented in this encounter Administered Medications Inactive Administered Medications - up to 3 most recent administrations Medication Order MAR Action Action Date Dose Rate Site fludeoxyglucose F-18 (FDG) injection 10.3 millicurie 10.3 millicurie, intravenous, Once in imaging, radiopharmaceutical, Starting on Wed01/08/23 at 1302, For 1 dose Given 01/08/2023 1:02 PM CDT 10.3 millicuries Left Antecubital documented in this encounter Orders Medications Ordered That Alexi ht Not Have Been Administered Count Last Ordered Date First Ordered Date fludeoxyglucose F-18 (FDG) i njection 10.3 millicurie 1 01/08/2023 documented in this encounter Care Teams Car Mechanic Relationship Specialty Start Date End Date Yosi Whaley MD [address] [place] [address] PCP - General 07/14/19 02/03/23 Yosi Whaley MD [address] [place] [address] 07/14/19 02/03/23 documented as of this encounter
--- OUTSIDE RECORDS SUMMARY | 2024-06-26 01:35 | XMS_ITS | Encounter Summary ---
Author Organization [facility] Address [address] [place] [address] Phone Care Team Providers Care Grain Oilseed Or Pasture Grower Name Role Phone Elvis Lopez MD Primary Care Provider [phone] Catherine Todd MD Unavailable [phone] Encounter Details Date Type Department Care Team (Late st Contact Info) Description 12/13/2023 Orders Only [facility] Oncology [address] [facility] [address] [place] [address] Catherine Todd MD [address] DIV IM BONE MARROW TRANSPLANT, [address] [place] [address] Social History Tobacco Use Types Packs/Day Years [...] on file Legal Sex Female 3:01 AM PSYCHIATRIC MENTAL HEALTH NURSE Gender Identity Female 06/07/2020 11:17 AM PSYCHIATRIC MENTAL HEALTH NURSE Sexual Orientation Straight 06/07/2020 11 :17 AM PSYCHIATRIC MENTAL HEALTH NURSE documented as of this encounter Plan of Treatment Not on file documented as of this encounter Visit Diagnoses Not on filedocumented in this encounter Care Teams Grain Oilseed Or Pasture Grower Relationship Specialty Start Date End Date Elvis Lopez MD [address] [facility] [place] [address] PCP - General Family Medicine 02/04/23 Catherine Todd MD [address] DIV IM BONE MARROW TRANSPLANT, [address] [place] [address] Medical Oncologist/Professor Of Theater Hematology 08/27/23 documented as of this encounter
--- OUTSIDE RECORDS SUMMARY | 2024-06-26 01:35 | XMS_ITS | Encounter Summary ---
Author Organization [facility] Address [address] [place] [address] Phone Care Team Providers Care Distillery Manager Name Role Phone Elvis Lopez MD Primary Care Provider [phone] Catherine Todd MD Unavailable [phone] Encounter Details Date Type Department Care Team (Late st Contact Info) Description 01/13/2024 Orders Only [facility] Oncology [address] [facility] [address] [place] [address] Falguni Lomeli RN Social History [...] on file Legal Sex Female 3:01 AM FLOOR NURSE Gender Identity Female 06/07/2020 11:17 AM FLOOR NURSE Sexual Orientation Straight 06/07/2020 11 :17 AM FLOOR NURSE documented as of this encounter Plan of Treatment Not on file documented as of this encounter Visit Diagnoses Not on filedocumented in this encounter Discontinued Medications Medication Sig Discontinue Reason Start Date End Da te acyclovir (ZOVIRAX) 400 mg tabletIndications:Mul tiple myeloma not having achieved remission (CMS/HCC) (HCC) Take 1 tablet (400 mg total) by mouth 3 (three) times a day 12/16/2023 01/13/2024 prochlorperazine (Compazine) 10 mg tabletIndications:Mul tiple myeloma not having achieved remission (CMS/HCC) (HCC) Take 1 tablet (10 mg total) by mouth every 6 (six) hours as needed for nausea or vomiting 12/16/2023 01/13/2024 aspirin 325 mg tabletIndications:Mul tiple myeloma not having achieved remission (CMS/HCC) (HCC) Take 1 tablet (325 mg total) by mouth daily Take while on lenalidomide (Revlimid) therapy. 12/16/2023 01/13/2024 documented as of this encounter Care Teams Distillery Manager Relationship Specialty Start Date End Date Elvis Lopez MD [address] [facility] [place] [address] PCP - General Family Medicine 02/04/23 Catherine Todd MD [address] IM BONE MARROW TRANSPLANT, [address] [place] [address] Medical Oncologist/Harvest Worker Fruit Hematology 08/27/23 documented as of this encounter
--- OUTSIDE RECORDS SUMMARY | 2024-06-26 01:35 | XMS_ITS | Encounter Summary ---
Author Organization [facility] Address [address] [place] [address] Phone Care Team Providers Care Sales Floor Team Member Name Role Phone Elvis Lopez MD Primary Care Provider [phone] Catherine Todd MD Unavailable Encounter Details Date Type Department Care Team (Late st Contact Info) Description 12/15/2023 Orders Only [facility] Oncology [address] [facility] [address] [place] [address] Catherine Todd MD [address] DIV IM BONE MARROW TRANSPLANT, [address] [place] [address] Multiple myeloma not having achieved remission (CMS/HCC) [...] on file Legal Sex Female 3:01 AM SCHOOL SPEECH THERAPIST Gender Identity Female 06/07/2020 11:17 AM SCHOOL SPEECH THERAPIST Sexual Orientation Straight 06/07/2020 11 :17 AM SCHOOL SPEECH THERAPIST documented as of this encounter Plan of Treatment Not on file documented as of this encounter Visit Diagnoses Diagnosis Multiple myeloma not having achieved remission (CMS/HCC) (HCC)- Primary documented in this encounter Care Teams Sales Floor Team Member Relationship Specialty Start Date End Date Elvis Lopez MD [address] [facility] [place] [place] [address] PCP - General Family Medicine 02/04/23 Catherine Todd MD [address] DIV IM BONE MARROW TRANSPLANT, [address] [place] [address] Medical Oncologist/Casino Slot Supervisor Hematology 08/27/23 documented as of this encounter
--- OUTSIDE RECORDS SUMMARY | 2024-06-26 01:35 | XMS_ITS | Encounter Summary ---
Author Organization [facility] Address [address] [place] [address] Care Team Providers Care Machine I Coremaker Name Role Phone Elvis Lopez MD Primary Care Provider [phone] Catherine Todd MD Unavailable [phone] Encounter Details Date Type Department Care Team (Late st Contact Info) Description 10/29/2023 Telephone [facility] [address] [place] [address] Oly Lord RN Social History Tobacco Use [...] on file Legal Sex Female 3:01 AM OCULAR CARE AIDE Gender Identity Female 06/07/2020 11:17 AM OCULAR CARE AIDE Sexual Orientation Straight 06/07/2020 11 :17 AM OCULAR CARE AIDE documented as of this encounter Miscellaneous Notes * Telephone Encounter - Oly Lord RN - 10/29/2023 10:37 AM CDT I spoke with Mrs Elise and pre procedure call completed Preprocedure Phone Call Procedure Time Verified: Yes (2:00 pm) Arrival Time Verified: Yes (1:00 pm to register in outpatient registration/admitting) Procedure Location Verified: Yes ([facility] ([address] [facility] [place] [address]); Entrance A; [place] [address]) NPO Status Reinforced: Yes (NPO after 0600 on 11-01-23; take meds with small sips of water) Ride and Caregiver Arranged: Yes Is Patient on Blood Thinners?: (ASA 81 mg listed) documented in this encounter Plan of Treatment Not on file documented as of this encounter Visit Diagnoses Not on filedocumented in this encounter Care Teams Machine I Coremaker Relationship Specialty Start Date End Date Elvis Lopez MD [address] [facility] [place] [address] PCP - General Family Medicine 02/04/23 Catherine Todd MD [address] IM BONE MARROW TRANSPLANT, [address] [place] [address] Medical Oncologist/Filter Cloth Maker Hematology 08/27/23 documented as of this encounter
--- OUTSIDE RECORDS SUMMARY | 2024-06-26 01:36 | XMS_ITS | Encounter Summary ---
Author Organization [facility] Address [address] [place] [address] Phone Care Team Providers Care Mid Level Project Manager Name Role Phone Yosi Whaley MD Primary Care Provider [phone] Yosi Whaley MD Unavailable Encounter Details Date Type Department Care Team (Late st Contact Info) Description 09/11/2019 10:15 AM CDT Lab [facility] Oncology [facility] [address] [address] Multiple myeloma not having achieved remission (CMS/HCC) Social History Tobacco Use Types Packs/Day Years [...] on file Legal Sex Female 3:01 AM WINDING MACHINE OPERATOR Gender Identity Female 06/07/2020 11:17 AM WINDING MACHINE OPERATOR Sexual Orientation Straight 06/07/2020 11 :17 AM WINDING MACHINE OPERATOR COVID-19 Exposure Response Date Recorded In the last month, have you been in contact with someone who was confirmed or suspected to have Coronavirus / COVID-19? No / Unsure 09/11/2019 10:05 AM CDT documented as of this encounter Plan of Treatment Not on file documented as of this encounter Visit Diagnoses Diagnosis Multiple myeloma not having achieved remission (CMS/HCC) (HCC) documented in this encounter Orders Appointment Requests Count Last Ordered Date Fi rst Ordered Date ONCBCN LAB APPOINTMENT 1 09/11/2019 documented in this encounter Care Teams Mid Level Project Manager Relationship Specialty Start Date End Date Yosi Whaley MD [address] [place] [address] PCP - General 07/14/19 02/03/23 Yosi Whaley MD [address] [place] [address] 07/14/19 02/03/23 documented as of this encounter
--- OUTSIDE RECORDS SUMMARY | 2024-06-26 01:36 | XMS_ITS | Encounter Summary ---
Author Organization [facility] Address [address] [place] [address] Phone Care Team Providers Care Labor Trainer Name Role Phone Yosi Whaley MD Primary Care Provider [phone] Yosi Whaley MD Unavailable Encounter Details Date Type Department Care Team (Late st Contact Info) Description 11/12/2020 Telephone [facility] Oncology [address] [place] [address] Akbar Pittman Jr., MD [facility] [place] [address] Social History Tobacco Use Types Packs/Day Years [...] on file Legal Sex Female 3:01 AM OIL SPREADER OPERATOR Gender Identity Female 06/07/2020 11:17 AM OIL SPREADER OPERATOR Sexual Orientation Straight 06/07/2020 11 :17 AM OIL SPREADER OPERATOR documented as of this encounter Miscellaneous Notes * Telephone Encounter - Venessa Hernandez RN - 11/14/2020 1:39 PM CDT Please schedule pt for the 3rd week of November I put in appt request and I will put in orders for labsto be done at [facility] prior to appt, Thanks * Telephone Encounter - Opal Jimenez CMA - 11/12/2020 11:29 AM CDT Pt called to ask if she should be f/u with Dr Pittman, she said she saw him a year ago in Juneand she did not know if she needs a yearly f/u. Please advise Opal GLASS documented in this encounter Plan of Treatment Not on file documented as of this encounter Visit Diagnoses Not on filedocumented in this encounter Care Teams Labor Trainer Relationship Specialty Start Date End Date Yosi Whaley MD [address] [place] [address] PCP - General 07/14/19 02/03/23 Yosi Whaley MD [address] [place] [address] 07/14/19 02/03/23 documented as of this encounter
--- OUTSIDE RECORDS SUMMARY | 2024-06-26 01:36 | XMS_ITS | Encounter Summary ---
Author Organization [facility] Facility Care Team Providers Care Charging Manipulator Name Role Phone Yosi Whaley MD Primary Care Provider [phone] Yosi Whaley MD Unavailable Encounter Details Date Type Department Care Team (Latest Contact Info) Description 09/11/2019 Travel Social History Tobacco Use Types Packs/Day [...] on file Legal Sex Female 3:01 AM IMPORT COORDINATION AND PRODUCTION HEAD Gender Identity Female 06/07/2020 11:17 AM IMPORT COORDINATION AND PRODUCTION HEAD Sexual Orientation Straight 06/07/2020 11 :17 AM IMPORT COORDINATION AND PRODUCTION HEAD COVID-19 Exposure Response Date Recorded In the last month, have you been in contact with someone who was confirmed or suspected to have Coronavirus / COVID-19? No / Unsure 09/11/2019 10:05 AM CDT documented as of this encounter Plan of Treatment Not on file documented as of this encounter Visit Diagnoses Not on filedocumented in this encounter Care Teams Charging Manipulator Relationship Specialty Start Date End Date Yosi Whaley MD [address] [place] [address] PCP - General 07/14/19 02/03/23 Yosi Whaley MD [address] [place] [address] 07/14/19 02/03/23 documented as of this encounter
--- OUTSIDE RECORDS SUMMARY | 2024-06-26 01:36 | XMS_ITS | Encounter Summary ---
Author Organization [facility] Address [address] [place] [address] Phone Care Team Providers Care Lay Out Technician Name Role Phone Yosi Whaley MD Primary Care Provider [phone] Yosi Whaley MD Unavailable Encounter Details Date Type Department Care Team (Late st Contact Info) Description 07/18/2019 Telephone [facility] Oncology [facility] [address] [place] [phone] Jennifer Ceja, RN Social History Tobacco Use Types Packs/Day [...] on file Legal Sex Female 3:01 AM PHYSICIAN ADVISOR Gender Identity Female 06/07/2020 11:17 AM PHYSICIAN ADVISOR Sexual Orientation Straight 06/07/2020 11 :17 AM PHYSICIAN ADVISOR documented as of this encounter Miscellaneous Notes * Telephone Encounter - Jennifer Ceja RN - 07/18/2019 1:35 PM CST Patient notified that PET was negative and it is ok to resume pain management. Patient v/u and was very thankful of my call. ICIAN ADVISOR documented in this encounter Plan of Treatment Not on file documented as of this encounter Visit Diagnoses Not on filedocumented in this encounter Care Teams Lay Out Technician Relationship Specialty Start Date End Date Yosi Whaley MD [address] [place] [address] PCP - General 07/14/19 02/03/23 Yosi Whaley MD [address] [place] [address] 07/14/19 02/03/23 documented as of this encounter
--- OUTSIDE RECORDS SUMMARY | 2024-06-26 01:36 | XMS_ITS | Encounter Summary ---
Author Organization [facility] Address [address] [place] [address] Care Team Providers Care Nail Technician Teacher Name Role Phone Yosi Whaley MD Primary Care Provider [phone] Yosi Whaley MD Unavailable Reason for Visit * Reason Comments Follow-up 6 mo f/u. Going down hill after having covid in Jun 2020 Mitral valve insufficiency Encounter Details Date Type Department Care Team (Late st Contact Info) Description 01/02/2021 9:45 AM CDT Office Visit [facility] Cardiology [address] [place] [address] Syed Almonte MD [address] [facility] [address] [place] [address] Other chest pain (Primary Dx); Mitral valve insufficiency, unspecified etiology; Tricuspid valve insufficiency, unspecified etiology; Pulmonary hypertension (CMS/HCC) (HCC); Essential hypertension; Lipid screening Social History Tobacco Use Types Packs/Day Years [...] on file Legal Sex Female 3:01 AM CONTRACT CLERK AUTOMOBILE Gender Identity Female 06/07/2020 11:17 AM CONTRACT CLERK AUTOMOBILE Sexual Orientation Straight 06/07/2020 11 :17 AM CONTRACT CLERK AUTOMOBILE documented as of this encounter Last Filed Vital Signs Vital Sign Reading Time Taken Comments Blood Pressure 122/72 01/02/2021 9:49 AM CDT Pulse 65 01/02/2021 9:49 AM CDT Temperature - - Respiratory Rate - - Oxygen Saturation 97% 01/02/2021 9:49 AM CDT Inhaled Oxygen Concentration - - Weight 89.7 kg (197 lb 12.8 oz) 01/02/2021 9:49 AM CDT Height 172.7 cm (5' 8 ) 01/02/2021 9:49 AM CDT Body Mass Index 30.08 01/02/2021 9:49 AM CDT documented in this encounter Progress Notes * Syed Almonte MD - 01/02/2021 9:45 AM CDT [facility] DATE OF VISIT: 01/02/2021 CHIEF COMPLAINT Chief Complaint Patient presents with ??? Follow-up 6 mo f/u. Going downhill after having covid in Jun 2020 ??? Mitral valve insufficiency ASSESSMENT Diagnoses and all orders for this visit: Other chest pain (Primary) - ECG 12 lead Mitral valve insufficiency, unspecified etiology Tricuspid valve insufficiency, unspecified etiology Pulmonary hypertension (CMS/HCC) Essential hypertension PLAN/RECOMMENDATIONS 1. CP atypical, very likely noncardiac, nonexertional, fairly constant slightly improved reclining in chair, sometimes in R breast with zapping pains. Normal Lexiscan 2018, prior EKG unremarkable. She will monitor for progression or other associated symptoms and notify the office immediately. If new concern repeat ischemic evaluation was discussed but not felt change her management at present. 2. Lipids personally reviewed 01/02/21 LDL 117, not ideal goal LDL<100 but fair. Continue lifestyle modification. -Cont Zetia 10mg daily, not expected to tolerate statin therapy nor clear indication at this time. I orber stop Niacin unless very compelling reason to cont, lack of clear proven CV risk reduction even though TG elevated. Defer to PCP who is managing. 3. Preserved EF, NYHA class 3 symptoms. CHF counseling performed. Follow daily weight, less than 2 g daily sodium intake, medication compliance. Call w/ wt gain >3lb in 24 hrs or worsening edema and/or VALERO. -Monitor MR/TR. She is not decompensated. She is to continue treatment with CPAP for HONG. -05/2020 2D echo EF 74% normal wall motion moderate pulmonary hypertension RVSP 48 mm Hg moderate MR. -She does not have a h/o thromboembolism or lung disease as an explanation for PHTN. 4. BP controlled goal <140/90mmHg. Monitor BP on routine basis. Call with readings. Continue consistent cardiovascular exercise, weight loss, medication compliance, and low-sodium diet. -Amlodipine, HCTZ, Toprol XL 100mg daily. 5. Lifestyle modification counseling performed. Weight loss, exercise, reduction in caloric intake. -Quality of life is being destroyed due to generalized pain and limitations. Will need to defer to PCP and pain management. She has engaged in CBD alternative pain control strategies which have minimally helped unfortunately. -12 lead EKG today personally reviewed sinus rhythm, low-voltage QRS otherwise unremarkable 61 beats per minute MO interval 174 milliseconds QRS 96 milliseconds QT corrected 435 milliseconds. My total encounter time on 01/02/2021 was 46 minutes which was spent in the activities documented inthe note. This includes time spent prior to the visit and after the visit in direct care of the patient. This time does not include time spent in any separately reportable services. Over 50% of this visit counseling edema, pulmonary HTN, HTN, lipids, medications, lifestyle modification. Follow up in the office in 4-6 months or sooner as needed. Thank you for allowing me the privilege of participating in the care this very pleasant patient. Please do not hesitate to contact me with any additional questions or concerns. HPI Sloane Elise is a 80 y.o. female with a PMHx of bone [...] recall medication. In August 2019 high free [place] LC, K/L ratio 20.77, B2 microglobulin, low [...] only stand 2 min at a time. MEDICAL HISTORY Past Medical History: Diagnosis Date ??? Age-related nuclear cataract Senile nuclear cataract - (Added by TW Conv) ??? Anemia ??? 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 Chronic kidney disease ??? Heart murmur ??? Hypercholesteremia ??? Hypertension ??? Multiple myeloma (CMS/HCC) ??? Open angle with borderline findings and [...] Heart failure Brother MEDICATIONS HOME MEDICATIONS : amLODIPine (NORVASC) 2.5 mg tablet aspirin 81 mg tablet clobetasol (TEMOVATE) 0.05 % ointment diphenhydrAMINE (diphenhydrAMINE) 25 mg capsule docosahexanoic acid/epa (FISH OIL ORAL) ergocalciferol (VITAMIN D) 50,000 unit capsule ezetimibe (ZETIA) 10 mg tablet fluticasone (FLONASE) 50 mcg/actuation nasal spray gabapentin (NEURONTIN) 600 mg tablet glucosam velasquez lko-nhufsnjpj-D-Mn [id number] mg capsule hydroCHLOROthiazide (HYDRODIURIL) 25 mg tablet levothyroxine (SYNTHROID, LEVOTHROID) 50 mcg tablet magnesium oxide 400 mg magnesium tablet metoprolol XL (TOPROL-XL) 100 mg 24 hr tablet montelukast (SINGULAIR) 10 mg tablet MULTIVITAMIN ORAL naltrexone (LOW DOSE) 4.5 mg capsule naproxen (ANAPROX,ALEVE) 220 mg tablet niacin 500 mg tablet omeprazole (PriLOSEC) 20 mg capsule quinapril (ACCUPRIL) 20 mg tablet traMADoL (ULTRAM) 50 mg tablet TURMERIC ORAL vitamin E (AQUASOL E) 400 unit capsule ferrous sulfate 325 mg (65 mg of elemental iron) tablet ALLERGIES Allergies Allergen Reactions ??? Adoxa [Doxycycline Monohydrate] Unknown ??? Bextra [...] (See comments) Sleeps all day ??? Extendryl [Drgslxuvpzkaynby-Nq-Smyhkzptvq] Other (See comments) Hard to awaken ??? Seldane Other (See comments) Upset stomach REVIEW OF SYSTEMS Review of Systems Constitutional: Positive for malaise/fatigue and weight loss. Negative for decreased appetite, diaphoresis, fever, night sweats and weight gain. HENT: Negative for hearing loss and nosebleeds. Eyes: Negative for blurred vision and pain. Cardiovascular: Positive for chest pain, dyspnea on exertion and leg swelling. Negative for claudication, irregular heartbeat, near-syncope, orthopnea, palpitations and syncope. Respiratory: Positive for shortness of breath. Negative for cough, hemoptysis, snoring and wheezing. Endocrine: Negative for cold [...] for environmental allergies. PHYSICAL EXAM Vitals BP 122/72 (BP Location: Left arm, Patient Position: Sitting) Pulse 65 Ht 172.7 cm (5' 8 ) Wt 89.7 kg (197 lb 12.8 oz) SpO2 97% BMI 30.08 kg/m?? Weight: 89.7 kg (197 lb 12.8 oz) Height: 172.7 cm (5' 8 ) Body mass index is 30.08 kg/m??. Physical Exam Constitutional: General: She is [...] TESTS Lab Results Component Value Date WBC 4.8 11/21/2020 HGB 11.2 (L) 11/21/2020 HCT 34.4 (L) 11/21/2020 CREATININE 1.09 (H) 11/21/2020 POTASSIUM 3.7 11/21/2020 BUNSER 21 11/21/2020 Results for orders placed or performed in visit on 11/14/20 Comprehensive metabolic panel Result Value Ref Range Glucose 141 (H) 65 - 99 mg/dL BUN 21 7 - 25 mg/dL Creatinine 1.09 (H) 0.60 - 0.93 mg/dL eGFR NON-AFR. SWEDISH 48 (L) > OR = 60 mL/min/1.73m2 EGFR 56 (L) > OR = 60 mL/min/1.73m2 BUN/creat ratio 19 6 - 22 (calc) Sodium 138 135 - 146 mmol/L Potassium, pl 3.7 3.5 - 5.3 mmol/L Chloride 98 98 - 110 mmol/L CO2 30 20 - 32 mmol/L Calcium 9.6 8.6 - 10.4 mg/dL Protein, sr 6.2 6.1 - 8.1 g/dL Albumin 4.2 3.6 - 5.1 g/dL GLOBULIN 2.0 1.9 - 3.7 g/dL (calc) Alb/glob ratio 2.1 1.0 - 2.5 (calc) Bilirubin, total 0.4 0.2 - 1.2 mg/dL Alk phos 64 37 - 153 U/L AST 16 10 - 35 U/L ALT (SGPT) 13 6 - 29 U/L CBC with auto differential Result Value Ref Range WBC 4.8 3.8 - 10.8 Thousand/uL RBC, POC 3.65 (L) 3.80 - 5.10 Million/uL Hgb 11.2 (L) 11.7 - 15.5 g/dL Hct 34.4 (L) 35.0 - 45.0 % MCV 94.2 80.0 - 100.0 fL MCH 30.7 27.0 - 33.0 pg MCHC 32.6 32.0 - 36.0 g/dL Rdw 14.3 11.0 - 15.0 % Platelets 239 140 - 400 Thousand/uL MPV 10.4 7.5 - 12.5 fL Neutrophils, abs 2,117 1,500 - 7,800 cells/uL Neutrophil bands, abs CANCELED 0 - 750 cells/uL Metamyelocytes, abs CANCELED 0 cells/uL Myelocytes, abs CANCELED 0 cells/uL Promyelocytes, abs CANCELED 0 cells/uL Lymphocytes, abs 2,069 850 - 3,900 cells/uL Monocyte abs 446 200 - 950 cells/uL Eosinophils, abs 139 15 - 500 cells/uL Basophils, abs 29 0 - 200 cells/uL Blast, cell CANCELED 0 cells/uL NRBC abs CANCELED 0 cells/uL Neutrophils 44.1 % Neutrophilic bands CANCELED % Neutrophilic metamyelocytes CANCELED % Myelocytes CANCELED % Neutrophilic promyelocytes CANCELED % Lymphocyte pct 43.1 % Reactive lymph CANCELED 0 - 10 % Monocytes 9.3 % Eosinophils 2.9 % Basophils 0.6 % Blasts CANCELED % NRBC CANCELED 0 /100 WBC Comment CANCELED Lactate dehydrogenase (LD) Result Value Ref Range Lactate dehydrogenase (LDH) 145 120 - 250 U/L IgG Result Value Ref Range Immunoglobulin G 375 (L) 600 - 1,540 mg/dL KAPPA/LAMBDA LIGHT CHAINS FREE WITH RATIO, SERUM Result Value Ref Range Millbrae light chain, free 121.0 (H) 3.3 - 19.4 mg/L Lambda light chain, free 6.6 5.7 - 26.3 mg/L Millbrae/Lambda light chains free with ratio 18.33 (H) 0.26 - 1.65 Beta 2 microglobulin, serum Result Value Ref Range Beta 2 Microglobulin, Serum 3.53 (H) < OR = 2.51 mg/L IgA Result Value Ref Range Immunoglobulin A 51 (L) 70 - 320 mg/dL IgM Result Value Ref Range Immunoglobulin M 20 (L) 50 - 300 mg/dL 03/28/19 Lexiscan: Conclusions: Negative EKG portion [...] regurgitation. Mild pulmonic regurgitation. Normal sinus rhythm. Personally reviewed and analyzed EKG, electronic medical record, and bloodwork/lipids. Jeniffer Almonte MD, [facility] This note is dictated and transcribed using [employer] Direct Software. Parts Processor variancesmay occur. Despite proofreading, typographical errors may occur. documented in this encounter Plan of Treatment Not on file documented as of this encounter Procedures Procedure Name Priority Date/Time Associated Diagnosis Comments POCT LIPID PANEL Routine 01/02/2021 10:3 8 AM CDT Lipid screening ECG 12-LEAD Routine 01/02/2021 Other chest pain documented in this encounter Results * POCT lipid panel (01/02/2021 10:38 AM CDT) Cholesterol, POC 188 mg/dL Comment:GLU = 122 HDL, POC 25 mg/dL Triglycerides, POC 229 mg/dL LDL Cholesterol POC 117 mg/dL Chol/HDL Ratio, POC 7.5 Non-HDL Cholesterol, POC 163 mg/dL Cholesterol Total, POC 188 mg/dL Capillary blood 01/02/2021 1 0:38 AM CDT Syed Almonte MD POINT OF CARE TEST ORDER MAHAD Final Result * ECG 12 lead (01/02/2021) us Syed Almonte MD ECG ORDERABLES Final Re sult documented in this encounter Visit Diagnoses Diagnosis Other chest pain- Primary Mitral valve insufficiency, unspecified etiology Tricuspid valve insufficiency, unspecified etiology Pulmonary hypertension (HCC) Other chronic pulmonary heart diseases Essential hypertension Unspecified essential hypertension Lipid screening Screening for lipoid disorders documented in this encounter Discontinued Medications Medication Sig Discontinue Reason Start Date End Da te ferrous sulfate 325 mg (65 mg of elemental iron) tabletIndications:Iron Deficiency Anemia Take 65 mg of elemental iron by mouth daily with breakfast Therapy completed 01/02/2021 documented as of this encounter Care Teams Nail Technician Teacher Relationship Specialty Start Date End Date Yosi Whaley MD [address] [place] [address] PCP - General 07/14/19 02/03/23 Yosi Whaley MD [address] [place] [address] 07/14/19 02/03/23 documented as of this encounter
--- OUTSIDE RECORDS SUMMARY | 2024-06-26 01:36 | XMS_ITS | Encounter Summary ---
Author Organization [facility] Address [address] [place] [address] Care Team Providers Care Epidemiology Intern Name Role Phone Yosi Whaley MD Primary Care Provider [phone] Yosi Whaley MD Unavailable Encounter Details Date Type Department Care Team (Late st Contact Info) Description 06/11/2020 Orders Only [facility] Cardiology [address] [place] [address] Provider, MD Sanjay [address] [place], [place] [id number] Social History Tobacco Use Types Packs/Day Years [...] on file Legal Sex Female 3:01 AM ESCROW SECRETARY Gender Identity Female 06/07/2020 11:17 AM ESCROW SECRETARY Sexual Orientation Straight 06/07/2020 11 :17 AM ESCROW SECRETARY documented as of this encounter Plan of Treatment Not on file documented as of this encounter Procedures Procedure Name Priority Date/Time Associated Diagnosis Comments BMP - BASIC METABOLIC PANEL (7) Routine 06/10/2020 documented in this encounter Results * BMP - Basic Metabolic Panel (7) (06/10/2020) Historical Provider LAB BLOOD ORDERABLES Kenna l Result documented in this encounter Visit Diagnoses Not on filedocumented in this encounter Care Teams Epidemiology Intern Relationship Specialty Start Date End Date Yosi Whaley MD [address] [place] [address] PCP - General 07/14/19 02/03/23 Yosi Whaley MD [address] [place] [address] 07/14/19 02/03/23 documented as of this encounter
--- OUTSIDE RECORDS SUMMARY | 2024-06-26 01:36 | XMS_ITS | Encounter Summary ---
Author Organization [facility] Address [address] [place] [address] Care Team Providers Care Sieve Repairer Name Role Phone Yosi Whaley MD Primary Care Provider [phone] Yosi Whaley MD Unavailable Encounter Details Date Type Department Care Team (Late st Contact Info) Description 07/08/2020 Orders Only [facility] Cardiology [address] [place] [address] Tiffani Back NP [address] [place] [address] History of 2019 novel coronavirus disease (COVID-19) Social History Tobacco Use Types Packs/Day Years [...] on file Legal Sex Female 3:01 AM SAMPLE GRADER Gender Identity Female 06/07/2020 11:17 AM SAMPLE GRADER Sexual Orientation Straight 06/07/2020 11 :17 AM SAMPLE GRADER documented as of this encounter Plan of Treatment Not on file documented as of this encounter Visit Diagnoses Diagnosis History of 2019 novel coronavirus disease (COVID-19) documented in this encounter Orders EKG Orders Without Results Count Last Ordered D ate First Ordered Date ECG 12-LEAD 1 07/08/2020 documented in this encounter Care Teams Sieve Repairer Relationship Specialty Start Date End Date Yosi Whaley MD [address] [place] [address] PCP - General 07/14/19 02/03/23 Yosi Whaley MD [address] [place] [address] 07/14/19 02/03/23 documented as of this encounter
--- OUTSIDE RECORDS SUMMARY | 2024-06-26 01:36 | XMS_ITS | Encounter Summary ---
Author Organization [facility] Address [address] [place] [address] Phone Care Team Providers Care Cell Room Operator Name Role Phone Yosi Whaley MD Primary Care Provider [phone] Yosi Whaley MD Unavailable Reason for Visit * Reason Comments Multiple Myeloma Follow-up Encounter Details Date Type Department Care Team (Late st Contact Info) Description 12/16/2021 11:00 AM CDT Office Visit [facility] Oncology [address] [place] [address] [address] [place] [address] Akbar Pittman Jr., MD [facility] [address] Multiple myeloma not having achieved remission (CMS/HCC) [...] on file Legal Sex Female 3:01 AM FACILITIES OFFICER Gender Identity Female 06/07/2020 11:17 AM FACILITIES OFFICER Sexual Orientation Straight 06/07/2020 11 :17 AM FACILITIES OFFICER documented as of this encounter Last Filed Vital Signs Vital Sign Reading Time Taken Comments Blood Pressure 149/84 12/16/2021 11:05 AM CDT Pulse 56 12/16/2021 11:05 AM CDT Temperature 36.4 ??C (97.6 ??F) 12/16/2021 1 1:05 AM CDT Respiratory Rate 18 12/16/2021 11:0 5 AM CDT Oxygen Saturation 97% 12/16/2021 11: 05 AM CDT Inhaled Oxygen Concentration - - Weight 56.2 kg (123 lb 12.8 oz) 022 11:05 AM CDT with shoes Height 172.7 cm (5' 8 ) 12/16/2021 11:0 5 AM CDT Body Mass Index 18.82 12/16/2021 11:05 AM CDT documented in this encounter Progress Notes * Akbar Pittman Jr., MD - 12/16/2021 11:00 AM CDT Patient ID: Sloane Elise is a 80 y.o. female, comes in today for results of testing. Primary Care Provider: Yosi Whaley MD Assessment/Plan 1. 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 2. 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 Routine follow-up in 1 year. HPI December 16, 2021, comes in today for [...] cell count was 4.9, platelet count was [id number]. Metabolic profile was unremarkable. IgG was 350, [...] was 13 g, and a platelet countof [id number]. A complete metabolic profile was unremarkable. LDH [...] evidence ofany hematological disorder at this time. I plan to have her come back again in 3 months, to continue to monitor her her protein studies. Questions that they had were answered to their satisfaction. This is a very delightful 77-year-old white female, who comes in today because she has been having complaints of significant back pain. She underwent radiographs, including an MRI of the spine. The report on the MRI of the spine, showed evidence to suggest marrow conversion. Because of these findings, she comes in today for evaluation. ?? She has a known history of fibromyalgia. And this is her limiting factor, in her ability to carry out her activities of daily living. ?? 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 She underwent bone marrow studies, and no specific abnormalities was found. ?? She denies any problems with any fevers, night sweats, any weight loss. She denies any history of smoking. No history of diabetes. She is overweight. Review of Systems Constitutional: Negative. HENT: Negative. Eyes: Negative. Respiratory: Negative. Cardiovascular: Negative. Gastrointestinal: Negative. Endocrine: Negative. Genitourinary: Negative. Musculoskeletal: Positive for arthralgias. Skin: Negative. Hematological: Negative. Psychiatric/Behavioral: Negative. Pain: negative. Physical Exam: Vital Signs for this encounter: BSA: 1.64 meters squared BP 149/84 (BP Location: Left arm) Pulse 56 Temp 36.4 ??C (97.6 ??F) (Oral) Resp 18 Ht 172.7cm (5' 8 ) Wt 56.2 kg (123 lb 12.8 oz) Comment: with shoes SpO2 97% BMI 18.82 kg/m?? Physical Exam Constitutional: General: She is not in acute distress. Musculoskeletal: Cervical back: Normal range of motion. Skin: General: Skin is warm. Neurological: Mental Status: She is alert and oriented to person, place, and time. Psychiatric: Behavior: Behavior normal. Thought Content: Thought content normal. Judgment: Judgment normal. Performance Status: Symptomatic; fully ambulatory documented in this encounter Plan of Treatment Scheduled Orders Name Type Priority Associated Diagnoses Orde r Schedule Comprehensive metabolic panel Lab Routine Multiple myeloma not having achieved remission (CMS/HCC) ([facility]) Expected: 12/07/2022, Expires: 12/16/2022 CBC with auto differential Lab Routine Multiple myeloma not having achieved remission (CMS/HCC) ([facility]) Expected: 12/07/2022, Expires: 12/16/2022 IgG Lab Routine Multiple myeloma not having achieved remission (CMS/HCC) (HCC) Expected: 12/07/2022, Expires: 12/16/2022 KAPPA/LAMBDA LIGHT CHAINS FREE WITH RATIO, SERUM Lab Routine Multiple myeloma not having achieved remission (CMS/HCC) (HCC) Expected: 12/07/2022, Expires: 12/16/2022 Beta 2 microglobulin, serum Lab Routine Multiple myeloma not having achieved remission (CMS/HCC) (HCC) Expected: 12/07/2022, Expires: 12/16/2022 Protein Electrophoresis, With Reflex, Serum Lab Routine Multiple myeloma not having achieved remission (CMS/HCC) (HCC) Expected: 12/07/2022, Expires: 12/16/2022 IgA Lab Routine Multiple myeloma not having achieved remission (CMS/HCC) (HCC) Expected: 12/07/2022, Expires: 12/16/2022 IgM Lab Routine Multiple myeloma not having achieved remission (CMS/HCC) (HCC) Expected: 12/07/2022, Expires: 12/16/2022 documented as of this encounter Visit Diagnoses Diagnosis Multiple myeloma not having achieved remission (CMS/HCC) (HCC) documented in this encounter Historical Medications * This list may reflect changes made after this encounter. omega 5-emn-oic-fish oil (Fish OiL) 100-160-1,000 mg capsule Take by mouth glucosam velasquez txm-pjoiqtjdg-X- [place] 213-918-51-3 mg capsule 02/04/2023 metroNIDAZOLE 1 % gel with pump APPLY ONE PUMP TOPICALY TWICE DAILY 11/28/2021 08/27/2023 cholecalciferol (VITAMIN D-3) 50,000 unit capsule TAKE ONE CAPSULE BY MOUTH EVERY 2 WEEKS 11/18/2021 12/03/2023 added in this encounter Orders Appointment Requests Count Last Ordered Date Fi rst Ordered Date [facility] CLINIC APPOINTMENT REQUEST 2 023 12/16/2021 documented in this encounter Care Teams Cell Room Operator Relationship Specialty Start Date End Date Yosi Whaley MD [address] [place] [address] PCP - General 07/14/19 02/03/23 Yosi Whaley MD [address] [place] [address] 07/14/19 02/03/23 documented as of this encounter
--- OUTSIDE RECORDS SUMMARY | 2024-06-26 01:36 | XMS_ITS | Encounter Summary ---
Author Organization [facility] Address [address] [place] [address] Care Team Providers Care Critical Care Technician Name Role Phone Yosi Whaley MD Primary Care Provider Yosi Whaley MD Unavailable Reason for Referral * Cardiology (Routine) - Closed Specialty Diagnoses / Procedures Referred By Contac t Referred To Contact Diagnoses Primary hypertension Other chest pain Nonrheumatic mitral valve regurgitation Pulmonary hypertension (HCC) Procedures Transthoracic Echo Complete W Doppler/CF Syed Almonte MD Phone: tel: fax: External Order Referral ID Status Reason Start Date Expiration Date Visits Re quested Visits Authorized [id number] Closed 07/10/2021 08/09/2022 1 1 K ATTENDANT Reason for Visit * Reason Comments Follow-up 6 mo f/u Mitral Valve Insufficiency Encounter Details Date Type Department Care Team (Late st Contact Info) Description 07/10/2021 10:00 AM STACK ATTENDANT Office Visit [facility] Cardiology [address] [place] [address] Syed Almonte MD [address] [place] [address] Primary hypertension (Primary Dx); Other chest pain; Nonrheumatic mitral valve regurgitation; Hypercholesterolemia; Pulmonary hypertension (CMS/HCC) (HCC) Social History Tobacco [...] on file Legal Sex Female 3:01 AM STACK ATTENDANT Gender Identity Female 06/07/2020 11:17 AM STACK ATTENDANT Sexual Orientation Straight 06/07/2020 11 :17 AM STACK ATTENDANT documented as of this encounter Last Filed Vital Signs Vital Sign Reading Time Taken Comments Blood Pressure 118/70 07/10/2021 10:16 AM STACK ATTENDANT Pulse 68 07/10/2021 10:16 AM STACK ATTENDANT Temperature - - Respiratory Rate - - Oxygen Saturation 96% 07/10/2021 10: 16 AM STACK ATTENDANT Inhaled Oxygen Concentration - - Weight 92.5 kg (203 lb 14.4 oz) 022 10:16 AM STACK ATTENDANT Height 172.7 cm (5' 8 ) 07/10/2021 10:1 6 AM STACK ATTENDANT Body Mass Index 31 07/10/2021 10:16 AM STACK ATTENDANT documented in this encounter Progress Notes * Syed Almonte MD - 07/10/2021 10:00 AM CST [facility] DATE OF VISIT: 07/10/2021 CHIEF COMPLAINT Chief Complaint Patient presents with ??? Follow-up 6 mo f/u ??? Mitral Valve Insufficiency ASSESSMENT Diagnoses and all orders for this visit: Primary hypertension (Primary) - Transthoracic Echo Complete W Doppler/CF; Future Other chest pain - Transthoracic Echo Complete W Doppler/CF; Future Nonrheumatic mitral valve regurgitation - Transthoracic Echo Complete W Doppler/CF; Future Hypercholesterolemia Pulmonary hypertension (CMS/HCC) (HCC) - Transthoracic Echo Complete W Doppler/CF; Future PLAN/RECOMMENDATIONS 1. CP resolved, previously atypical.Previously described [...] therapy nor clear indication at this time. -Again, I would stop Niacin unless very compelling reason to cont, lack of clear proven CV risk reduction even though TG elevated. Defer to PCP who is managing. 3. Preserved EF, NYHA class II-III symptoms. [...] lung disease as an explanation for PHTN. -Repeat 2D Echo to assess chamber size, pulmonary pressures LV function. Recommendations to follow. 4. BP controlled goal <140/90mmHg. Monitor BP on routine basis. Call with readings. Continue consistent cardiovascular exercise, weight loss, medication compliance, and low-sodium diet. -Amlodipine, HCTZ, Toprol XL 100mg daily, Quinapril 5. Lifestyle modification counseling performed. Weight loss, exercise, reduction in caloric intake. -Quality of life is being destroyed due to generalized pain and limitations. Will need to defer to PCP and pain management. She has engaged in CBD alternative pain control strategies which have minimally helped unfortunately. Over 50% of this visit counseling edema, pulmonary HTN, HTN, lipids, medications, lifestyle modification. Follow up in the office in 6-9 months or sooner as needed. Thank you for allowing me the privilege of participating in the care this very pleasant patient. Please do not hesitate to contact me with any additional questions or concerns. HPI Rigoberto Elise is a 80 y.o. female with [...] recall medication. In August 2019 high free [place] LC, K/L ratio 20.77, B2 microglobulin, low [...] Zetia Toprol XL, Amlodipine, ASA. Wearing CPAP. MEDICAL HISTORY Past Medical History: Diagnosis Date [...] MEDICATIONS : amLODIPine (NORVASC) 2.5 mg tablet ergocalciferol (VITAMIN D) 50,000 unit capsule eszopiclone (LUNESTA) 3 mg tablet ezetimibe (ZETIA) 10 mg tablet fluticasone (FLONASE) 50 mcg/actuation nasal spray gabapentin (NEURONTIN) 600 mg tablet glucosam velasquez ypc-ufoxxfbod-B-Mn 106-667-62-3 mg capsule hydroCHLOROthiazide (HYDRODIURIL) 25 mg tablet levothyroxine (SYNTHROID, LEVOTHROID) 50 mcg tablet magnesium oxide 400 mg magnesium tablet metoprolol XL (TOPROL-XL) 100 mg 24 hr tablet montelukast (SINGULAIR) 10 mg tablet MULTIVITAMIN ORAL naltrexone (LOW DOSE) 4.5 mg capsule naproxen (ANAPROX,ALEVE) 220 mg tablet omeprazole (PriLOSEC) 20 mg capsule quinapril (ACCUPRIL) 20 mg tablet traMADoL (ULTRAM) 50 mg tablet TURMERIC ORAL vitamin E (AQUASOL E) 400 unit capsule niacin 500 mg tablet aspirin 81 mg tablet clobetasol (TEMOVATE) 0.05 % ointment diphenhydrAMINE (diphenhydrAMINE) 25 mg capsule docosahexanoic acid/epa (FISH OIL ORAL) ALLERGIES Allergies Allergen Reactions ??? Adoxa [Doxycycline [...] (See comments) Sleeps all day ??? Extendryl [Nquzpkzbhpsmlmfp-Mc-Mdiejftlmu] Other (See comments) Hard to awaken ??? [...] for environmental allergies. PHYSICAL EXAM Vitals BP 118/70 (BP Location: Left arm, Patient Position: Sitting) Pulse 68 Ht 172.7 cm (5' 8 ) Wt 92.5 kg (203 lb 14.4 oz) SpO2 96% BMI 31.00 kg/m?? Weight: 92.5 kg (203 lb 14.4 oz) Height: 172.7 cm (5' 8 ) Body mass index is 31 kg/m??. Physical Exam Constitutional: General: She is [...] medical record, and bloodwork/lipids. Jeniffer Almonte MD, [facility] This note is dictated and transcribed using Meet[employer] Direct Software. Technical Administrative Assistant variancesmay occur. Despite proofreading, typographical errors may occur. K ATTENDANT documented in this encounter Plan of Treatment Not on file documented as of this encounter Results * Transthoracic Echo (TTE) Complete W Doppler/CF (01/16/2022 11:07 AM CDT) Anatomical Region Laterality Modality Ultrasound 01/16/2022 11:0 7 AM CDT Narrative 01/16/2022 12:18 PM CDT [facility] Cardiology [address], [place] [address] [address], [place] [address] P:[phone] P:[phone] Echocardiographic Report Patient Name: RIGOBERTO ELISE : 1940 Study Date: 01/16/2022 11:07:44 AM Gender: F Tech: Location: [place] Ref.Provider: SYED ALMONTE Height(Cm): 173 BSA: 2.09 [...] Findings: Interpretation Site: Exam was interpreted at [facility]. Left Ventricle: Normal left ventricular systolic function. [...] Procedure Note Syed Almonte MD - 01/16/2022 [facility] Cardiology [address], [place] [address] [address], [place] [address] P:[phone] P:[phone] Echocardiographic Report Patient Name: RIGOBERTO ELISE : 1940 Study Date: 01/16/2022 11:07:44 AM Gender: F Tech: Location: [place] Ref.Provider: SYED ALMONTE Height(Cm): 173 BSA: 2.09 [...] Findings: Interpretation Site: Exam was interpreted at [facility]. Left Ventricle: Normal left ventricular systolic function. [...] in this encounter Visit Diagnoses Diagnosis Primary hypertension- Primary Unspecified essential hypertension Other chest pain Nonrheumatic mitral valve regurgitation Hypercholesterolemia Pure hypercholesterolemia Pulmonary hypertension (HCC) Other chronic pulmonary heart diseases Primary hypertension Unspecified essential hypertension Other chest pain Nonrheumatic mitral valve regurgitation Pulmonary hypertension (HCC) Other chronic pulmonary heart diseases documented in this encounter Discontinued Medications Medication Sig Discontinue Reason Start Date End Da te niacin 500 mg tablet Take 500 mg by mouth daily with breakfast 07/10/2021 documented as of this encounter Historical Medications * This list may reflect changes made after this encounter. eszopiclone (LUNESTA) 3 mg tablet Take by mouth nightly as needed 06/23/2021 added in this encounter Care Teams Critical Care Technician Relationship Specialty Start Date End Date Yosi Whaley MD [address] [place] [address] PCP - General 07/14/19 02/03/23 Yosi Whaley MD [address] [place] [address] 07/14/19 02/03/23 documented as of this encounter
--- OUTSIDE RECORDS SUMMARY | 2024-06-26 01:36 | XMS_ITS | Encounter Summary ---
Author Organization [facility] Address [address] [place] [address] Phone Care Team Providers Care Dermatology Sales Representative Name Role Phone Yosi Whaley MD Primary Care Provider [phone] Yosi Whaley MD Unavailable Encounter Details Date Type Department Care Team (Late st Contact Info) Description 07/17/2019 Orders Only [facility] Oncology [address] [place] [id number] Akbar Pittman Jr., MD [facility] [place] [address] Multiple myeloma not having achieved remission (CMS/HCC) (Primary Dx); Multiple myeloma, remission status unspecified (CMS/HCC) Social History Tobacco Use Types Packs/Day [...] on file Legal Sex Female 3:01 AM RN MEDICAL INPATIENT SERVICES Gender Identity Female 06/07/2020 11:17 AM RN MEDICAL INPATIENT SERVICES Sexual Orientation Straight 06/07/2020 11 :17 AM RN MEDICAL INPATIENT SERVICES documented as of this encounter Progress Notes * Tori Mota CMA - 07/17/2019 1:09 PM CST CORRECTION FOR PET CT SCAN PER [place] [id number] [address]. MEDICAL INPATIENT SERVICES documented in this encounter Plan of Treatment Not on file documented as of this encounter Visit Diagnoses Diagnosis Multiple myeloma, remission status unspecified (HCC) documented in this encounter Care Teams Dermatology Sales Representative Relationship Specialty Start Date End Date Yosi Whaley MD [address] [place] [address] PCP - General 07/14/19 02/03/23 Yosi Whaley MD [address] [place] [address] 07/14/19 02/03/23 documented as of this encounter
--- OUTSIDE RECORDS SUMMARY | 2024-06-26 01:36 | XMS_ITS | Encounter Summary ---
Author Organization [facility] Address [address] [place] [address] Phone Care Team Providers Care Crop Production Advisor Name Role Phone Yosi Whaley MD Primary Care Provider [phone] Yosi Whaley MD Unavailable Encounter Details Date Type Department Care Team (Late st Contact Info) Description 09/08/2019 Telephone [facility] Oncology [address] [place] [phone] Jennifer Ceja, RN Social History Tobacco Use [...] on file Legal Sex Female 3:01 AM FIRE CONTROL ASSISTANT Gender Identity Female 06/07/2020 11:17 AM FIRE CONTROL ASSISTANT Sexual Orientation Straight 06/07/2020 11 :17 AM FIRE CONTROL ASSISTANT documented as of this encounter Miscellaneous Notes * Telephone Encounter - Jennifer Ceja RN - 09/08/2019 9:07 AM CDT Visitor Policy: For the protection of our patients and staff during this time, we are implementing additional precautions for visitors at this time. ??? If you have a scheduled clinic visit, you may bring one (1) visitor with you. Both patients andvisitors will be screened when you arrive. If your visitor has any symptoms or has recently traveled or been exposed to someone with suspected COVID19, they will not be allowed to attend the appointment. ??? If you have an appointment in the treatment center, no visitors will be allowed. In very rare circumstances, a visitor may need to stay with a patient. These situations will be decided on a [id number] basis. ??? All visitors must follow hand-hygiene guidelines and use any other required equipment needed toprotect the patient and staff. What can YOU do? WASH YOUR HANDS! Use soap and water; lather for at least 20 seconds. Wash early and often! ??? Do not go to work sick, stay home when you are sick ??? Stay home as much as possible. Limit your interaction with other people. Social distancing is hard but it works. ??? For the latest updates, please go to [facility] website ([email or web address]) and click on the COVID19 link at the top of the page. If you have any other questions, please contact your nurse coordinator. Thank you for your patience as we make every effort to protect the health and safety of patients, staff, and visitors. documented in this encounter Plan of Treatment Not on file documented as of this encounter Visit Diagnoses Not on filedocumented in this encounter Care Teams Crop Production Advisor Relationship Specialty Start Date End Date Yosi Whaley MD [address] [place] [address] PCP - General 07/14/19 02/03/23 Yosi Whaley MD [address] [place] [address] 07/14/19 02/03/23 documented as of this encounter
--- OUTSIDE RECORDS SUMMARY | 2024-06-26 01:36 | XMS_ITS | Encounter Summary ---
Author Organization [facility] Address [address] [place] [address] Phone Care Team Providers Care Pump Operator Name Role Phone Yosi Whaley MD Primary Care Provider [phone] Yosi Whaley MD Unavailable Encounter Details Date Type Department Care Team (Late st Contact Info) Description 11/14/2020 Orders Only [facility] On[facility] [address] [place] [id number] Venessa Hernandez, RN Multiple myeloma not having achieved remission (CMS/HCC) (Primary Dx) Social History Tobacco Use Types [...] on file Legal Sex Female 3:01 AM DIRECTOR OPERATING Gender Identity Female 06/07/2020 11:17 AM DIRECTOR OPERATING Sexual Orientation Straight 06/07/2020 11 :17 AM DIRECTOR OPERATING documented as of this encounter Plan of Treatment Not on file documented as of this encounter Procedures Procedure Name Priority Date/Time Associated Diagnosis Comments KAPPA/LAMBDA LIGHT CHAINS FREE WITH RATIO, SERUM Routine 11/21/2020 2:11 PM CDT Multiple myeloma not having achieved remission (CMS/HCC) CBC WITH AUTO DIFFERENTIAL Routine 11/21/2020 2:11 PM CDT Multiple myeloma not having achieved remission (CMS/HCC) LACTATE DEHYDROGENASE Routine 11/21/2020 2:11 PM CDT Multiple myeloma not having achieved remission (CMS/HCC) IGA Routine 11/21/2020 2:11 PM CDT Multiple myeloma not having achieved remission (CMS/HCC) IGM Routine 11/21/2020 2:11 PM CDT Multiple myeloma not having achieved remission (CMS/HCC) IGG Routine 11/21/2020 2:11 PM CDT Multiple myeloma not having achieved remission (CMS/HCC) BETA 2 MICROGLOBULIN SERUM Routine 11/21/2020 2:11 PM CDT Multiple myeloma not having achieved remission (CMS/HCC) COMPREHENSIVE METABOLIC PANEL Routine 11/21/2020 2:11 PM CDT Multiple myeloma not having achieved remission (CMS/HCC) documented in this encounter Results * (ABNORMAL) IgM (11/21/2020 2:11 PM CDT) [facility] Immunoglobulin M 20(L) 50 - 300 mg/dL [facility] Blood specimen (specimen) 11/21/2020 2:11 PM CDT 11/21/2020 2:12 PM CDT Narrative [facility] - 11/22/2020 3:25 PM CDT AN UPDATE OR CORRECTION HAS BEEN MADE TO NAME us Akbar Pittman Jr., MD LAB BLOOD ORDERABLES Final Result [facility] [address] [place] [address] * (ABNORMAL) IgA (11/21/2020 2:11 PM CDT) Immunoglobulin A 51(L) 70 - 320 mg/dL [facility] Blood specimen (specimen) 11/21/2020 2:11 PM CDT 11/21/2020 2:12 PM CDT Narrative [facility] - 11/22/2020 3:25 PM CDT AN UPDATE OR CORRECTION HAS BEEN MADE TO NAME Akbar Pittman Jr., MD LAB BLOOD ORDERABLES Final Result Performing Organization Address [facility] de Phone Number [facility] [address] [place] [address] * (ABNORMAL) Beta 2 microglobulin, serum (11/21/2020 2:11 PM CDT) Beta 2 Microglobulin, Serum 3.53(H) < OR = 2.51 mg/L [facility] Blood specimen (specimen) 11/21/2020 2:11 PM CDT 11/21/2020 2:12 PM CDT Narrative [facility] - 11/22/2020 3:25 PM CDT AN UPDATE OR CORRECTION HAS BEEN MADE TO NAME Akbar Pittman Jr., MD LAB BLOOD ORDERABLES Final Result Performing Organization Address [facility] Phone Number [facility] [address] [place] [address] * (ABNORMAL) KAPPA/LAMBDA LIGHT CHAINS FREE WITH RATIO, SERUM (11/21/2020 2:11 PM CDT) Gem light chain, free 121.0(H) 3.3 - 19.4 mg/L [facility] Lambda light chain, free 6.6 5.7 - 26.3 mg/L [facility] Gem/Lambda light chains free with ratio 18.33(H) 0.26 - 1.65 [facility] Comment: Free kappa/lambda ratio in serum of [...] response to therapy of these disorders. Blood specimen (specimen) 11/21/2020 2:11 PM CDT 11/21/2020 2:12 PM CDT Narrative [facility] - 11/22/2020 3:25 PM CDT AN UPDATE OR CORRECTION HAS BEEN MADE TO NAME Akbar Pittman Jr., MD LAB BLOOD ORDERABLES Final Result Performing Organization Address [facility]/ZIP Co de Phone Number [facility] [address] [place] [address] * (ABNORMAL) IgG (11/21/2020 2:11 PM CDT) Immunoglobulin G 375(L) 600 - 1,540 mg/dL [facility] Blood specimen (specimen) 11/21/2020 2:11 PM CDT 11/21/2020 2:12 PM CDT Narrative [facility] - 11/22/2020 3:25 PM CDT AN UPDATE OR CORRECTION HAS BEEN MADE TO NAME Akbar Pittman Jr., MD LAB BLOOD ORDERABLES Final Result Performing Organization Address [facility] Co de Phone Number [facility] [address] [place] [address] * Lactate dehydrogenase (LD) (11/21/2020 2:11 PM CDT) Lactate dehydrogenase (LDH) 145 120 - 250 U/L [facility] Blood specimen (specimen) 11/21/2020 2:11 PM CDT 11/21/2020 2:12 PM CDT Narrative [facility] - 11/22/2020 3:25 PM CDT AN UPDATE OR CORRECTION HAS BEEN MADE TO NAME us Akbar Pittman Jr., MD LAB BLOOD ORDERABLES Final Result [facility] [address] [address] * (ABNORMAL) CBC with auto differential (11/21/2020 2:11 PM CDT) WBC 4.8 3.8 - 10.8 Thousand/ uL [facility] RBC, POC 3.65(L) 3.80 - 5.10 Million/u L [facility] Hgb 11.2(L) 11.7 - 15.5 g/dL [facility] Hct 34.4(L) 35.0 - 45.0 % [facility] MCV 94.2 80.0 - 100.0 fL [facility] MCH 30.7 27.0 - 33.0 pg [facility] MCHC 32.6 32.0 - 36.0 g/dL [facility] Rdw 14.3 11.0 - 15.0 % [facility] Platelets 239 140 - 400 Thousand/ uL [facility] MPV 10.4 7.5 - 12.5 fL [facility] Neutrophils, abs 2,117 1,500 - 7,800 cells/uL [facility] Neutrophil bands, abs CANCELED 0 - 750 cells/uL [facility] Comment:Result canceled by t he ancillary. Metamyelocytes, abs CANCELED 0 cells/uL [facility] Comment:Result canceled by t he ancillary. Myelocytes, abs CANCELED 0 cells/uL [facility] Comment:Result canceled by t he ancillary. Promyelocytes, abs CANCELED 0 cells/uL [facility] Comment:Result canceled by t he ancillary. Lymphocytes, abs 2,069 850 - 3,900 cells/uL [facility] Monocyte abs 446 200 - 950 cells/uL [facility] Eosinophils, abs 139 15 - 500 cells/uL [facility] Basophils, abs 29 0 - 200 cells/uL [facility] Blast, cell CANCELED 0 cells/uL [facility] Comment:Result canceled by t he ancillary. NRBC abs CANCELED 0 cells/uL [facility] Comment:Result canceled by t he ancillary. Neutrophils 44.1 % [facility] Neutrophilic bands CANCELED % [facility] Comment:Result canceled by t he ancillary. Metamyelocyte pct CANCELED % [facility] Comment:Result canceled by t he ancillary. Myelocyte pct CANCELED % [facility] Comment:Result canceled by t he ancillary. Promyelocyte pct CANCELED % [facility] Comment:Result canceled by t he ancillary. Lymphocyte pct 43.1 % [facility] Reactive lymph CANCELED 0 - 10 % [facility] Comment:Result canceled by t he ancillary. Monocytes 9.3 % [facility] Eosinophils 2.9 % [facility] Basophils 0.6 % [facility] Blast pct CANCELED % [facility] Comment:Result canceled by t he ancillary. NRBC CANCELED 0 /100 WBC [facility] Comment:Result canceled by t he ancillary. Comment CANCELED [facility] Comment:Result canceled by t he ancillary. Blood specimen (specimen) 11/21/2020 2:11 PM CDT 11/21/2020 2:12 PM CDT Narrative [facility] - 11/22/2020 3:25 PM CDT AN UPDATE OR CORRECTION HAS BEEN MADE TO NAME us Akbar Pittman Jr., MD LAB BLOOD ORDERABLES Final Result [facility] [address] [address] [place] [address] * (ABNORMAL) Comprehensive metabolic panel (11/21/2020 2:11 PM CDT) [facility] Glucose 141(H) 65 - 99 mg/dL [facility] Comment: ? Fasting reference interval For someone without known diabetes, a glucose value >125 mg/dL indicates that they may have diabetes and this should be confirmed with a follow-up test. BUN 21 7 - 25 mg/dL [facility] Creatinine 1.09(H) 0.60 - 0.93 mg/dL [facility] Comment: For patients >49 years of age, the reference limit for Creatinine is approximately 13% higher for people identified as -Citizen Of [place]. eGFR NON-AFR. DJIBOUTIAN 48(L) > OR = 60 mL/min/1. 73m2 [facility] EGFR 56(L) > OR = 60 mL/min/1. 73m2 [facility] BUN/creat ratio 19 6 - 22 (calc) [facility] Sodium 138 135 - 146 mmol/L [facility] Potassium, pl 3.7 3.5 - 5.3 mmol/L [facility] Chloride 98 98 - 110 mmol/L [facility] CO2 30 20 - 32 mmol/L [facility] Calcium 9.6 8.6 - 10.4 mg/dL [facility] Protein, sr 6.2 6.1 - 8.1 g/dL [facility] Albumin 4.2 3.6 - 5.1 g/dL [facility] GLOBULIN 2.0 1.9 - 3.7 g/dL (calc) [facility] Alb/glob ratio 2.1 1.0 - 2.5 (calc) [facility] Bilirubin, total 0.4 0.2 - 1.2 mg/dL [facility] Alk phos 64 37 - 153 U/L [facility] AST 16 10 - 35 U/L [facility] ALT (SGPT) 13 6 - 29 U/L [facility] Blood specimen (specimen) 11/21/2020 2:11 PM CDT 11/21/2020 2:12 PM CDT Narrative [facility] - 11/22/2020 3:25 PM CDT AN UPDATE OR CORRECTION HAS BEEN MADE TO NAME us Akbar Pittman Jr., MD LAB BLOOD ORDERABLES Final Result [facility] [address] [address] documented in this encounter Visit Diagnoses Diagnosis Multiple myeloma not having achieved remission (CMS/HCC) (HCC)- Primary documented in this encounter Care Teams Pump Operator Relationship Specialty Start Date End Date Yosi Whaley MD [address] [place] [address] PCP - General 07/14/19 02/03/23 Yosi Whaley MD [address] [place], [place] [address] 07/14/19 02/03/23 documented as of this encounter
--- OUTSIDE RECORDS SUMMARY | 2024-06-26 01:36 | XMS_ITS | Encounter Summary ---
Author Organization [facility] Address [address] [place] [address] Care Team Providers Care Medical Practice Administrator Name Role Phone Yosi Whaley MD Primary Care Provider [phone] Yosi Whaley MD Unavailable Encounter Details Date Type Department Care Team (Late st Contact Info) Description 06/05/2020 Orders Only [facility] Cardiology [address] [place] [address] Provider, MD Sanjay [address] [place], [place] [id number] Social History Tobacco Use Types Packs/Day Years [...] on file Legal Sex Female 3:01 AM INVOICING SPECIALIST Gender Identity Female 06/07/2020 11:17 AM INVOICING SPECIALIST Sexual Orientation Straight 06/07/2020 11 :17 AM INVOICING SPECIALIST documented as of this encounter Plan of Treatment Not on file documented as of this encounter Procedures Procedure Name Priority Date/Time Associated Diagnosis Comments CARDIOLOGY DOCUMENT SCAN Routine 06/05/2020 documented in this encounter Results * SCAN - CARDIOLOGY (06/05/2020) Anatomical Region Laterality Modality Other Historical Provider CV CARDIAC SERVICES JAM LEGER Final Result documented in this encounter Visit Diagnoses Not on filedocumented in this encounter Care Teams Medical Practice Administrator Relationship Specialty Start Date End Date Yosi Whaley MD [address] [place] [address] PCP - General 07/14/19 02/03/23 Yosi Whaley MD [address] [place] [address] 07/14/19 02/03/23 documented as of this encounter
--- OUTSIDE RECORDS SUMMARY | 2024-06-26 01:36 | XMS_ITS | Encounter Summary ---
Author Organization [facility] Address [address] [place] [address] Care Team Providers Care Carbon Capture Power Plant Manager Name Role Phone Yosi Whaley MD Primary Care Provider [phone] Yosi Whaley MD Unavailable Reason for Referral * (Routine) - Closed Specialty Diagnoses / Procedures Referred By Contac t Referred To Contact Diagnoses History of 2019 novel coronavirus disease (COVID-19) Procedures ECG 12 lead Tiffani Back NP [address] [facility] [address] [address] Phone: tel: fax: [facility] Referral ID Status Reason Start Date Expiration Date Visits Re quested Visits Authorized [id number] Closed 07/05/2020 08/04/2021 1 1 T DESK REPRESENTATIVE Reason for Visit * Reason Comments Mitral valve infsufficiency 1 month f/u Had COVID-19 cleared by [facility] pt Encounter Details Date Type Department Care Team (Late st Contact Info) Description 07/05/2020 3:30 PM FRONT DESK REPRESENTATIVE Office Visit [facility] Cardiology [address] [facility] [address] [address] Tiffani Back NP [address] [facility] [address] [address] History of 2019 novel coronavirus disease (COVID-19); Mitral valve insufficiency, unspecified etiology; Tricuspid valve insufficiency, unspecified etiology; Pulmonary hypertension (CMS/HCC) Social History Tobacco Use Types Packs/Day [...] on file Legal Sex Female 3:01 AM FRONT DESK REPRESENTATIVE Gender Identity Female 06/07/2020 11:17 AM FRONT DESK REPRESENTATIVE Sexual Orientation Straight 06/07/2020 11 :17 AM FRONT DESK REPRESENTATIVE documented as of this encounter Last Filed Vital Signs Vital Sign Reading Time Taken Comments Blood Pressure 108/66 07/05/2020 3:59 PM FRONT DESK REPRESENTATIVE Pulse 68 07/05/2020 3:59 PM FRONT DESK REPRESENTATIVE Temperature - - Respiratory Rate - - Oxygen Saturation 95% 07/05/2020 3:59 PM FRONT DESK REPRESENTATIVE Inhaled Oxygen Concentration - - Weight 97.4 kg (214 lb 12.8 oz) 07/05/2020 3:59 PM FRONT DESK REPRESENTATIVE Height 172.7 cm (5' 8 ) 07/05/2020 3:59 PM FRONT DESK REPRESENTATIVE Body Mass Index 32.66 07/05/2020 3:59 PM FRONT DESK REPRESENTATIVE documented in this encounter Progress Notes * Pauly Rosales - 07/05/2020 3:30 PM CST Let Shaina know T DESK REPRESENTATIVE * Tiffani Back NP - 07/05/2020 3:30 PM CST Images from the original note were not included. [facility] Cardiology [address] [place] [address] Date of Visit: 07/05/2020 Patient ID: Sloane Elise 1940 Chief Complaint: Sloane Elise is a 79 y.o. female was referred to Dr. Almonte last month for findings of an abnormal echocardiogram. She returns the office for one-month follow-up. History of Present Illness: Sloane Elise is a 79 y.o. female with a PMHx of bone [...] recall medication. In August 2019 high free [place] LC, K/L ratio 20.77, B2 microglobulin, low IgM, IgA, IgG followed by Dr. Pittman. Currently has a great deal of pain in feet and legs and makes it very difficult to walk. 07/05/20 1 month follow up with GENERAL ADJUSTER: Over the past month, she has stopped spironolactone with improvement of her edema. Unfortunately she contracted COVID -19. Her primary symptoms were fatigue, weakness, GI upset. She lost 10 lb. Her isolation ended on 07/02/2020. Since then she has developed burning pain in her legs, primarily on the left thigh with intermittent shooting pains that sound neuropathic. She also has an intermittent pain under the left breast, feels more like pressure when she wears a bra, but does not go away without a bra. This is not related to activity or respiration. 12-lead ECG performed in the office today was reviewed by me personally and showed sinus rhythm, normal axis and normal intervals, rate 69 beats per minute; compared to ECG dated 06/07/2020 no change. Records that I personally reviewed on the day of this visit include: (the interpretation is outlined in the HPI above) 06/07/[address] Almonte and ECG, today's ECG I have also reviewed: allergies, current medications, past family history, past medical history, past social history, past surgical history and problem list Review of Systems Constitution: Positive for fever and malaise/fatigue. Negative for diaphoresis, weight gain and weight loss. HENT: Negative for hearing loss. Eyes: Negative for visual disturbance. Cardiovascular: Positive for leg swelling. Negative for chest pain, claudication, orthopnea, palpitations, paroxysmal nocturnal dyspnea and syncope. Respiratory: Positive for cough and shortness of breath. Negative for hemoptysis, snoring and wheezing. Hematologic/Lymphatic: Does not bruise/bleed easily. Skin: Negative for poor wound healing and rash. Musculoskeletal: Positive for arthritis, back pain, joint pain and myalgias. Gastrointestinal: Negative for heartburn, nausea and vomiting. Genitourinary: Negative for hematuria. Neurological: Positive for paresthesias. Negative for dizziness, headaches and light-headedness. Psychiatric/Behavioral: Negative for depression. The patient is not nervous/anxious. Vital Signs: BP 108/66 (BP Location: Right arm, Patient Position: Sitting) Pulse 68 Ht 172.7 cm (5' 8 ) Wt97.4 kg (214 lb 12.8 oz) SpO2 95% BMI 32.66 kg/m?? Physical Exam Constitutional: She is oriented to person, place, and time. She appears well- developed. No distress. Obese HENT: Head: Normocephalic and atraumatic. Nose: Nose normal. Wearing a mask Eyes: Pupils are equal, round, and reactive to light. Conjunctivae and EOM are normal. No scleral icterus. Neck: Normal range of motion. No JVD present. No tracheal deviation present. Cardiovascular: Normal rate, regular rhythm and normal heart sounds. No murmur heard. Pulmonary/Chest: Effort normal and breath sounds normal. No respiratory distress. Abdominal: Soft. Bowel sounds are normal. There is no abdominal tenderness. Musculoskeletal: General: No edema. Comments: Ambulates with a Rollator walker Neurological: She is alert and oriented to person, place, and time. Skin: Skin is warm and dry. Psychiatric: She has a normal mood and affect. Allergies Allergen Reactions ??? Adoxa [Doxycycline Monohydrate] [...] (See comments) Sleeps all day ??? Extendryl [Vgxuumrukerdcahh-Ju-Xpzzbyflci] Other (See comments) Hard to awaken ??? Seldane Other (See comments) Upset stomach Current Outpatient Medications: ??? amLODIPine (NORVASC) 2.5 mg tablet, TK 1 T PO QD, Disp: , Rfl: 8 ??? aspirin 81 mg tablet, Take 81 mg by mouth every other day , Disp: , Rfl: ??? clobetasol (TEMOVATE) 0.05 % ointment, Apply topically 2 (two) times a day, Disp: , Rfl: ??? diphenhydrAMINE (diphenhydrAMINE) 25 mg capsule, Take 25 mg by mouth nightly, Disp: , Rfl: ??? docosahexanoic acid/epa (FISH OIL ORAL), Take by mouth, Disp: , Rfl: ??? ergocalciferol (VITAMIN D) 50,000 unit capsule, TK 1 C PO Q 2 WEEKS UTD, Disp: , Rfl: 3 ??? ezetimibe (ZETIA) 10 mg tablet, TK 1 T PO QD, Disp: , Rfl: 3 ??? ferrous sulfate 325 mg (65 mg of elemental iron) tablet, Take 65 mg of elemental iron by mouth daily with breakfast, Disp: , Rfl: ??? fluticasone (FLONASE) 50 mcg/actuation nasal spray, , Disp: , Rfl: ??? glucosam velasquez yoj-agnxsjrnc-M-Mn [id number] mg capsule, , Disp: , Rfl: ??? hydroCHLOROthiazide (HYDRODIURIL) 25 mg tablet, TK 1 T PO QD, Disp: , Rfl: 2 ??? levothyroxine (SYNTHROID, LEVOTHROID) 50 mcg tablet, TK 1 T PO QD, Disp: , Rfl: 3 ??? magnesium oxide 400 mg magnesium tablet, Take by mouth, Disp: , Rfl: ??? metoprolol XL (TOPROL-XL) 100 mg 24 hr tablet, TK 1 T PO D, Disp: , Rfl: 3 ??? montelukast (SINGULAIR) 10 mg tablet, TK 1 T PO D, Disp: , Rfl: 3 ??? MULTIVITAMIN ORAL, Take by mouth, Disp: , Rfl: ??? naproxen (ANAPROX,ALEVE) 220 mg tablet, Take by mouth 2 (two) times a day with meals, Disp: , Rfl: ??? niacin 500 mg tablet, Take 500 mg by mouth daily with breakfast, Disp: , Rfl: ??? omeprazole (PriLOSEC) 20 mg capsule, Take 20 mg by mouth daily, Disp: , Rfl: ??? quinapril (ACCUPRIL) 20 mg tablet, TK 2 TS PO D, Disp: , Rfl: 2 ??? traMADoL (ULTRAM) 50 mg tablet, TK 1 T PO D PRN P, Disp: , Rfl: ??? TURMERIC ORAL, Take by mouth, Disp: , Rfl: ??? vitamin E (AQUASOL E) 400 unit capsule, , Disp: , Rfl: Lab Results Component Value Date POTASSIUM 3.8 09/11/2019 BUNSER 18 05/29/2019 CREATININE 0.7 09/11/2019 Assessment: Diagnoses and all orders for this visit: History of 2019 novel coronavirus disease (COVID-19) - ECG 12 lead; Future Mitral valve insufficiency, unspecified etiology Tricuspid valve insufficiency, unspecified etiology Pulmonary hypertension (CMS/HCC) Plan/Recommendations: She is s/p gordillo virus infection, did not require hospitalization, no longer in isolation. ECG today is without change. Regarding her mitral and tricuspid valve insufficiency and pulmonary hypertension, she is advised to have ongoing cardiac care. I recommend routine follow-up Dr. Almonte in 6 months. Call us sooner with questions or concerns. I also encouraged her to establish care with Rheumatology as previously advised She agreed to this plan. RAIZA Ortiz-BC Nurse Practitioner with [facility] Cardiology This note is dictated and transcribed using [employer] Direct Software. Chargemaster Specialist variancesmay occur. Despite proofreading, typographical errors may occur. T DESK REPRESENTATIVE documented in this encounter Plan of Treatment Scheduled Orders Name Type Priority Associated Diagnoses Orde r Schedule ECG 12 lead ECG Routine History of 2019 novel coronavirus disease (COVID-19) Expected: 07/05/2020, Expires: 07/05/2021 documented as of this encounter Visit Diagnoses Diagnosis History of 2019 novel coronavirus disease (COVID-19) Mitral valve insufficiency, unspecified etiology Tricuspid valve insufficiency, unspecified etiology Pulmonary hypertension (HCC) Other chronic pulmonary heart diseases documented in this encounter Discontinued Medications Medication Sig Discontinue Reason Start Date End Da te spironolactone (ALDACTONE) 25 mg tablet Take 25 mg by mouth daily Therapy completed 05/31/2020 07/05/2020 clarithromycin (BIAXIN) 250 mg tablet Therapy completed 05/24/2020 traZODone (DESYREL) 50 mg tablet TK 1 T PO QD HS Therapy completed 08/09/2018 07/05/2020 propylene glycol (SYSTANE BALANCE) 0.6 % drops Administer into affected eye(s) Therapy completed 07/05/2020 metroNIDAZOLE 1 % gel with pump U ONE PUMP BID Therapy completed 06/22/2018 07/05/2020 fexofenadine HCl (ASHLEY ALLERGY ORAL) Take by mouth Therapy completed estradiol (ESTRACE) 0.01 % (0.1 mg/gram) vaginal cream I 1 GRAM VAGINALLY 3 TIMES Q WK Therapy completed 07/31/2018 07/05/2020 cetirizine (ALLERGY RELIEF, CETIRIZINE,) 10 mg tablet Take 10 mg by mouth daily Therapy completed 07/05/2020 biotin 10,000 mcg capsule Take by mouth Therapy completed 07/05/2020 ascorbic acid (ascorbic acid) 500 mg tablet,chewable Therapy completed 07/05/2020 documented as of this encounter Care Teams Carbon Capture Power Plant Manager Relationship Specialty Start Date End Date Yosi Whaley MD [address] [place] [address] PCP - General 07/14/19 02/03/23 Yosi Whaley MD [address] [place] [address] 07/14/19 02/03/23 documented as of this encounter
--- OUTSIDE RECORDS SUMMARY | 2024-06-26 01:36 | XMS_ITS | Encounter Summary ---
Author Organization [facility] Address [address] [place] [address] Phone Care Team Providers Care Computer Peripheral Equipment Operator Name Role Phone Yosi Whaley MD Primary Care Provider [phone] Yosi Whaley MD Unavailable Encounter Details Date Type Department Care Team (Late st Contact Info) Description 07/20/2019 Telephone [facility] Oncology [address] [place] [id number] Barbara Roche BSN Social History Tobacco Use Types Packs/Day Years [...] on file Legal Sex Female 3:01 AM AIRDR[employer] SYSTEM[employer] TECHNICIAN Gender Identity Female 06/07/2020 11:17 AM AIRDROP SYSTEMS TECHNICIAN Sexual Orientation Straight 06/07/2020 11 :17 AM AIRDROP SYSTEMS TECHNICIAN documented as of this encounter Miscellaneous Notes * Telephone Encounter - Barbara Roche BSN - 07/20/2019 9:00 AM AIRDROP SYSTEMS TECHNICIAN Spoke with patient regarding appointment date and time Patient v/u ROP SYSTEMS TECHNICIAN * Telephone Encounter - Barbara Roche BSN - 07/20/2019 9:00 AM AIRDROP SYSTEMS TECHNICIAN ----- Message from Jennifer Ceja RN sent at 07/19/2019 5:03 PM AIRDROP SYSTEMS TECHNICIAN ----- Please salvador and schedule f/u appt with lab draw as ordered. Thanks, Denae ROP SYSTEMS TECHNICIAN documented in this encounter Plan of Treatment Not on file documented as of this encounter Visit Diagnoses Not on filedocumented in this encounter Care Teams Computer Peripheral Equipment Operator Relationship Specialty Start Date End Date Yosi Whaley MD [address] [place] [address] PCP - General 07/14/19 02/03/23 Yosi Whaley MD [address] [place] [address] 07/14/19 02/03/23 documented as of this encounter
--- OUTSIDE RECORDS SUMMARY | 2024-06-26 01:36 | XMS_ITS | Encounter Summary ---
Author Organization [facility] Address [address] [place] [address] Care Team Providers Care Transformer Inspector Name Role Phone Yosi Whaley MD Primary Care Provider [phone] Yosi Whaley MD Unavailable Reason for Visit * Cardiology (Routine) - Closed Specialty Diagnoses / Procedures Referred By Contdusty t Referred To Contact Diagnoses Edema, unspecified type Procedures Transthoracic Echo Complete W Doppler/CF Yue Kowalski PA [address] [place] [address] Phone: tel: fax: [facility] Referral ID Status Reason Start Date Expiration Date Visits Re quested Visits Authorized [id number] Closed 05/24/2020 06/22/2020 1 1 Encounter Details Date Type Department Care Team (Latest Contact Info) Description 05/28/2020 11:15 AM UNCLAIMED PROPERTY MANAGER Ancillary Procedure [facility] Cardiology [address] [place] [address] Edema, unspecified type Social History Tobacco Use Types Packs/Day Years [...] on file Legal Sex Female 3:01 AM UNCLAIMED PROPERTY MANAGER Gender Identity Female 06/07/2020 11:17 AM UNCLAIMED PROPERTY MANAGER Sexual Orientation Straight 06/07/2020 11 :17 AM UNCLAIMED PROPERTY MANAGER documented as of this encounter Last Filed Vital Signs Vital Sign Reading Time Taken Comments Blood Pressure - - Pulse - - Temperature 36.5 ??C (97.7 ??F) 05/28/2020 11:[address] Respiratory Rate - - Oxygen Saturation - - Inhaled Oxygen Concentration - - Weight - - Height - - Body Mass Index - - documented in this encounter Plan of Treatment Not on file documented as of this encounter Procedures Procedure Name Priority Date/Time Associated Diagnosis Comments TRANSTHORACIC ECHO (TTE) COMPLETE W DOPPLER/CF Routine 05/28/2020 10:47 AM UNCLAIMED PROPERTY MANAGER Edema, unspecified type documented in this encounter Results * Transthoracic Echo Complete W Doppler/CF (05/28/2020 10:47 AM UNCLAIMED PROPERTY MANAGER) Anatomical Region Laterality Modality Ultrasound 05/28/2020 10:4 7 AM UNCLAIMED PROPERTY MANAGER Narrative 05/28/2020 12:27 PM UNCLAIMED PROPERTY MANAGER [facility] Cardiology [address], [place] [address] [address], [place] [address] P:[phone] P:[phone] Echocardiographic Report Patient Name: RIGOBERTO ELISE : 1940 Study Date: 05/28/2020 10:47:38 AM Gender: F Tech: [facility] Ref.Provider: SARA Height(Cm): 170 BSA: 2.13 Weight(Kg): 102.51 Heart Rate: 71 BP: 135/61 Quality: Good Order Provider: YUE KOWALSKI Procedures: Echocardiographic Report: Transthoracic echocardiogram with complete 2D, M-Mode, and color Doppler examination. Indications: Edema. Measurements: 2D/M Mode ?Doppler ? Measurement ?Value ?Normal Range ? Measurement ?Value ?Normal Range ? EF Mod ? 74 ?AV Mean PG ? 4 ?mmHg ? EF MM ?78 ? [ 55 - 70 ] % ?AV Peak Evaristo ?1.31 ? m/s ? LVIDd MM ? 4.83 ? [ 3.90 - 5.30 ] cm ? AV Peak PG ? 7 ?mmHg ? LVIDs MM ? 2.58 ? [ 2.30 - 3.90 ] cm ? AV VTI ? 0.34 ? cm ? LVPWd MM ? 1.33 ? [ 0.60 - 1.00 ] cm ? LVOT Peak Evaristo ?1.05 ? [ 0.70 - 1.10 ] m/s ? IVSd MM ?1.33 ? [ 0.60 - 0.90 ] cm ? LVOT VTI ? 0.27 ? cm ? LA Dimension MM ?4.17 ? [ 2.70 - 3.80 ] cm ? MV E Peak Evaristo ?0.80 ? [ 0.60 - 1.30 ] m/s ? AoR Diam MM ?3.75 ? [ 2.60 - 3.70 ] cm ? MV A Peak Evaristo ?0.92 ? [ 0.40 - 0.80 ] m/s ? LA Volume Index ?28.00 ?[ 16.00 - 28.00 ] cc/m2 ?MV Decel Time ?290 ?[ 150 - 200 ] msec ? ACS MM ? 2.17 ? cm ? PV Peak Evaristo ?0.79 ? [ 0.40 - 0.80 ] m/s ? TR Peak Evaristo ?3.18 ? [ 0.40 - 0.80 ] m/s ? TR Peak PG ? 40 ? mmHg ? RVSP ? 48.00 ?mmHg ? E' ? 0.07 ? E/E' ? 11 ? Findings: Interpretation Site: Exam was interpreted at [facility]. Left Ventricle: Normal left ventricular systolic function. No focal wall motion abnormalities. Normal left ventricular size. Mild concentric left ventricular hypertrophy. Impaired diastolic relaxation Grade I. Ejection fraction is visually estimated at 70-75 %. Ejection fraction is measured at 74 %. Right Ventricle: Normal right ventricular size. Normal right ventricular systolic function. Left Atrium: There is mild enlargement of left atrium. Right Atrium: The right atrium is normal in size. Atrial Septum: Normal atrial septum. Mitral Valve: Mitral valve leaflets appear moderately thickened. Moderate mitral valve regurgitation. There is no hemodynamically significant mitral stenosis by Doppler. Aortic Valve: Normal appearance of the aortic valve. No evidence of hemodynamically significant aortic stenosis by Doppler. Trileaflet aortic valve. Trace aortic valve regurgitation. Tricuspid Valve: Normal appearance of the tricuspid valve. Moderate pulmonary hypertension based on right ventricular systolic pressure. Estimated peak RVSP is 48 mmHg. Moderate tricuspid regurgitation. Pulmonic Valve: Normal appearance of the pulmonic valve. No pulmonic stenosis. Mild pulmonic regurgitation. Pericardium: Normal pericardium with no significant pericardial effusion. Aorta: Normal aortic root. IVC: Normal size and normal respiratory collapse consistent with normal right atrial pressure (<5 mmHg). Conclusions: Normal left ventricular systolic function. No [...] regurgitation. Mild pulmonic regurgitation. Normal sinus rhythm. Electronically Signed By: Austen Norman MD 2020-05-28 12:27:09 UNCLAIMED PROPERTY MANAGER Procedure Note Austen Norman MD - 05/28/2020 [facility] Cardiology [address] [address] [address], [place] [address] P:[phone] P:[phone] Echocardiographic Report Patient Name: Suzie ELISE ID: [id number] : [id number] Date: 05/28/2020 10:47:38 AM Gender: FAccession #: [id number] Tech: GMLocation[facility] Ref.Provider: Micheleight(Cm): 170 BSA: 2.13Weight(Kg): 102.51 Heart Rate: 71BP: 135/61 Quality: GoodOrder Provider: YUE KOWALSKI Procedures: Echocardiographic Report: Transthoracic echocardiogram with complete 2D, M-Mode, and color Dopplerexamination. Indications: Edema. Measurements: 2D/M Mode Doppler Measurement Value Normal Range MeasurementValue Normal Range EF Mod 74 AV Mean PG 4mmHg EF MM 78 [ 55 - 70 ] % AV Peak Vel1.31 m/s LVIDd MM 4.83 [ 3.90 - 5.30 ] cm AV Peak PG 7mmHg LVIDs MM 2.58 [ 2.30 - 3.90 ] cm AV VTI0.34 cm LVPWd MM 1.33 [ 0.60 - 1.00 ] cm LVOT Peak Vel1.05 [ 0.70 - 1.10 ] m/s IVSd MM 1.33 [ 0.60 - 0.90 ] cm LVOT VTI0.27 cm LA Dimension MM 4.17 [ 2.70 - 3.80 ] cm MV E Peak Vel0.80 [ 0.60 - 1.30 ] m/s AoR Diam MM 3.75 [ 2.60 - 3.70 ] cm MV A Peak Vel0.92 [ 0.40 - 0.80 ] m/s LA Volume Index 28.00 [ 16.00 - 28.00 ] cc/m2 MV Decel Dwbc300 [ 150 - 200 ] msec ACS MM 2.17 cm PV Peak Vel0.79 [ 0.40 - 0.80 ] m/s TR Peak Vel3.18 [ 0.40 - 0.80 ] m/s TR Peak PG 40mmHg RVSP48.00 mmHg E'0.07 E/E' 11 Findings: Interpretation Site: Exam was interpreted at [facility]. Left Ventricle: Normal left ventricular systolic function. No focal wall motionabnormalities. Normal left ventricular size. Mild concentric left ventricular hypertrophy.Impaired diastolic relaxation Grade I. Ejection fraction is visually estimated at 70-75 %.Ejection fraction is measured at 74 %. Right Ventricle: Normal right ventricular size. Normal right ventricular systolicfunction. Left Atrium: There is mild enlargement of left atrium. Right Atrium: The right atrium is normal in size. Atrial Septum: Normal atrial septum. Mitral Valve: Mitral valve leaflets appear moderately thickened. Moderate mitral valveregurgitation. There is no hemodynamically significant mitral stenosis by Doppler. Aortic Valve: Normal appearance of the aortic valve. No evidence of hemodynamicallysignificant aortic stenosis by Doppler. Trileaflet aortic valve. Trace aortic valveregurgitation. Tricuspid Valve: Normal appearance of the tricuspid valve. Moderate pulmonary hypertensionbased on right ventricular systolic pressure. Estimated peak RVSP is 48 mmHg. Moderatetricuspid regurgitation. Pulmonic Valve: Normal appearance of the pulmonic valve. No pulmonic stenosis. Mildpulmonic regurgitation. Pericardium: Normal pericardium with no significant pericardial effusion. Aorta: Normal aortic root. IVC: Normal size and normal respiratory collapse consistent with normal rightatrial pressure (<5 mmHg). Conclusions: Normal left ventricular systolic function. No focal wall motionabnormalities. Normal left ventricular size. Mild concentric left ventricular hypertrophy.Impaired diastolic relaxation Grade I. Ejection fraction is visually estimated at 70-75 %.Ejection fraction is measured at 74 %. There is mild enlargement of left atrium. Mitral valve leaflets appear moderately thickened. Moderate mitral valveregurgitation. Moderate pulmonary hypertension based on right ventricular systolicpressure. Estimated peak RVSP is 48 mmHg. Moderate tricuspid regurgitation. Mild pulmonic regurgitation. Normal sinus rhythm. Electronically Signed By: Austen Norman MD 2020-05-28 12:27:09 UNCLAIMED PROPERTY MANAGER Yue ADAMS CV ECHO PROCEDURES Kenna l Result documented in this encounter Visit Diagnoses Diagnosis Edema, unspecified type documented in this encounter Care Teams Transformer Inspector Relationship Specialty Start Date End Date Yosi Whaley MD [address] [place] [address] PCP - General 07/14/19 02/03/23 Yosi Whaley MD [address] [place] [address] 07/14/19 02/03/23 documented as of this encounter
--- OUTSIDE RECORDS SUMMARY | 2024-06-26 01:36 | XMS_ITS | Encounter Summary ---
Author Organization [facility] Medical [facility] Address [address] [place] [address] Care Team Providers Care [employer] Rep Name Role Phone Yosi Whaley MD Primary Care Provider [phone] Yosi Whaley MD Unavailable Reason for Visit * Reason Comments New Patient eval for MV insuffic iency and PHT * Consultation (Routine) - Closed Specialty Diagnoses / Procedures Referred By Contdusty t Referred To Contact Cardiology Diagnoses Pulmonary hypertension (HCC) Nonrheumatic mitral (valve) insufficiency Yue Kowalski PA [address] [place] [address] Phone: tel: fax: [facility] Cardiology [address] [place] [address] Phone: tel: fax: Referral ID Status Reason Start Date Expiration Date V isits Requested Visits Authorized [id number] Closed Specialty Services Required 06/05/2020 07/05/2021 1 1 Encounter Details Date Type Department Care Team (Late st Contact Info) Description 06/07/2020 1:45 PM QUALITY ASSURANCE ASSISTANT Office Visit [facility] Cardiology [address] [place] [id number] Syed Almonte MD [address] [place] [address] Mitral valve insufficiency, unspecified etiology (Primary Dx); Pulmonary hypertension (CMS/HCC); Nonrheumatic mitral (valve) insufficiency; Tricuspid valve insufficiency, unspecified etiology Social History Tobacco Use Types Packs/Day Years [...] on file Legal Sex Female 3:01 AM QUALITY ASSURANCE ASSISTANT Gender Identity Female 06/07/2020 11:17 AM QUALITY ASSURANCE ASSISTANT Sexual Orientation Straight 06/07/2020 11 :17 AM QUALITY ASSURANCE ASSISTANT documented as of this encounter Last Filed Vital Signs Vital Sign Reading Time Taken Comments Blood Pressure 106/64 06/07/2020 1:38 PM QUALITY ASSURANCE ASSISTANT Pulse 86 06/07/2020 1:38 PM QUALITY ASSURANCE ASSISTANT Temperature - - Respiratory Rate - - Oxygen Saturation 94% 06/07/2020 1:38 PM QUALITY ASSURANCE ASSISTANT Inhaled Oxygen Concentration - - Weight 102.1 kg (225 lb) 06/07/2020 1:38 PM QUALITY ASSURANCE ASSISTANT Height 172.7 cm (5' 8 ) 06/07/2020 1:38 PM QUALITY ASSURANCE ASSISTANT Body Mass Index 34.21 06/07/2020 1:38 PM QUALITY ASSURANCE ASSISTANT documented in this encounter Progress Notes * Syed Almonte MD - 06/07/2020 1:45 PM CST [facility] DATE OF VISIT: 06/07/2020 CHIEF COMPLAINT Chief Complaint Patient presents with ??? New Patient eval for MV insufficiency and PHT ASSESSMENT Diagnoses and all orders for this visit: Mitral valve insufficiency, unspecified etiology (Primary) Pulmonary hypertension (CMS/HCC) - Ambulatory referral to Cardiology Nonrheumatic mitral (valve) insufficiency - Ambulatory referral to Cardiology Tricuspid valve insufficiency, unspecified etiology PLAN/RECOMMENDATIONS 1. Rheumatology referral advised. 2. Discussed potentially stopping HCTZ, adding LAsix 40mg daily cont Spironolactone for now but need to see BMP prior to making changes. -Amlodipine may also be contributing to her edema although low dose and chronic medication. Discussed my concerns in this regard. I am not convinced aggressive diuresis will resolve her edema as I donot believe her Echo findings are severe enough to result in decompensated heart failure. However, will likely attempt to cautiously diurese her as is reasonable based on clinical symptoms and renal f unction/electrolytes. -BMP in one week. This is not an ideal regimen given the number of medications she takes and interactions. 3. Preserved EF, NYHA class 2-3 symptoms. CHF counseling performed. Follow daily weight, less than 2 g daily sodium intake, medication compliance. Call w/ wt gain >3lb in 24 hrs or worsening edemaand/or VALERO. -chronicity of her mitral tricuspid regurgitation as well as pulmonary hypertension is not known. Valvular disease may in fact be consistent with history of rheumatic fever but not necessarily clearly explanation for her edema. I do not feel she is decompensated a present he explained the risk parti cularly progression in mitral/tricuspid regurgitation pulmonary hypertension. She is to continue treatment with CPAP for HONG. -certainly with regards to her echo findings ongoing follow-up will be required and we will continue to monitor her in this regard. -She does not have a h/o thromboembolism or lung disease as an explanation for PHTN. 4. BP controlled. Monitor BP on routine basis. Call with readings. Continue consistent cardiovascular exercise, weight loss, medication compliance, and low- sodium diet. 5. Lifestyle modification counseling performed. Weight loss, exercise, reduction in caloric intake. 6. Curious with regards to kappa lambda ratio of patient has a systemic symptoms with severe joint pain. 7. CHF counseling performed. Follow daily weight, less than 2 g daily sodium intake, medication compliance. Call w/ wt gain >3lb in 24 hrs or worsening edema and/or VALERO. 8. Call office early next week after obtaining laboratory studies for further recommendations with regards to medication changes. Twelve lead EKG today personally reviewed sinus rhythm 79 beats per minute poor R-wave progression WV interval 162 milliseconds QRS 96 milliseconds QT corrected 465 milliseconds Reviewed office notes from Dr. Pittman 07/10/2019. Over 50% of this visit counseling edema, pulmonary HTN, HTN, lipids, medications, lifestyle modification. Follow up in the office in 1 month or sooner as needed. Thank you for allowing me the privilege of participating in the care this very pleasant patient. Please do not hesitate to contact me with any additional questions or concerns. HPI Sloane Elise is a 79 y.o. female [...] recall medication. In August 2019 high free [place] LC, K/L ratio 20.77, B2 microglobulin, low IgM, IgA, IgG followed by Dr. Pittman. Currently has a great deal of pain in feet and legs and makes it very difficult to walk. MEDICAL HISTORY Past Medical History: Diagnosis Date [...] Never Smoker ??? Smokeless tobacco: Never Used Substance Use Topics ??? Alcohol use: Never Frequency: Never ??? Drug use: Never Family History Problem Relation Age of Onset ??? Thyroid disease Mother ??? Heart failure Father ??? Heart disease Father ??? Heart disease Sister ??? Other (enlarged heart) Sister ??? Lung cancer Brother ??? Heart failure Brother MEDICATIONS HOME MEDICATIONS : amLODIPine (NORVASC) 2.5 mg tablet ascorbic acid (ascorbic acid) 500 mg tablet,chewable aspirin 81 mg tablet clarithromycin (BIAXIN) 250 mg tablet clobetasol (TEMOVATE) 0.05 % ointment diphenhydrAMINE (diphenhydrAMINE) 25 mg capsule docosahexanoic acid/epa (FISH OIL ORAL) ergocalciferol (VITAMIN D) 50,000 unit capsule ezetimibe (ZETIA) 10 mg tablet ferrous sulfate 325 mg (65 mg of elemental iron) tablet fluticasone (FLONASE) 50 mcg/actuation nasal spray glucosam velasquez [id number] mg capsule hydroCHLOROthiazide (HYDRODIURIL) 25 mg tablet levothyroxine (SYNTHROID, LEVOTHROID) 50 mcg tablet magnesium oxide 400 mg magnesium tablet metoprolol XL (TOPROL-XL) 100 mg 24 hr tablet montelukast (SINGULAIR) 10 mg tablet MULTIVITAMIN ORAL naproxen (ANAPROX,ALEVE) 220 mg tablet niacin 500 mg tablet omeprazole (PriLOSEC) 20 mg capsule propylene glycol (SYSTANE BALANCE) 0.6 % drops quinapril (ACCUPRIL) 20 mg tablet spironolactone (ALDACTONE) 25 mg tablet traMADoL (ULTRAM) 50 mg tablet TURMERIC ORAL vitamin E (AQUASOL E) 400 unit capsule biotin 10,000 mcg capsule cetirizine (ALLERGY RELIEF, CETIRIZINE,) 10 mg tablet estradiol (ESTRACE) 0.01 % (0.1 mg/gram) vaginal cream fexofenadine HCl (ASHLEY ALLERGY ORAL) metroNIDAZOLE 1 % gel with pump traZODone (DESYREL) 50 mg tablet polyethylene glycol-electrolytes (NULYTELY) 420 gram solution traMADol ER (ULTRAM-ER) 200 mg 24 hr tablet ALLERGIES Allergies Allergen Reactions ??? Adoxa [...] (See comments) Sleeps all day ??? Extendryl [Ijrhlmfzzwbjocxy-Ua-Spmfksnywm] Other (See comments) Hard to awaken ??? Seldane Other (See comments) Upset stomach REVIEW OF SYSTEMS Review of Systems Constitution: Positive for weight gain. Negative for decreased appetite, diaphoresis, fever, malaise/fatigue and night sweats. HENT: Negative for hearing loss and nosebleeds. Eyes: Negative for blurred vision and pain. Cardiovascular: Positive for dyspnea on exertion and leg swelling. Negative for chest pain, claudication, irregular heartbeat, near-syncope, orthopnea, palpitations and [...] for environmental allergies. PHYSICAL EXAM Vitals BP 106/64 (BP Location: Left arm, Patient Position: Sitting) Pulse 86 Ht 172.7 cm (5' 8 ) Wt 102.1 kg (225 lb) SpO2 94% BMI 34.21 kg/m?? Weight: 102.1 kg (225 lb) Height: 172.7 cm (5' 8 ) Body mass index is 34.21 kg/m??. Physical Exam Constitutional: She is oriented to person, place, and time. She appears well- developed and well-nourished. She is cooperative. No distress. HENT: Head: Normocephalic and atraumatic. Right Ear: External ear normal. Left Ear: External ear normal. Nose: Nose normal. Mouth/Throat: Oropharynx is clear and moist and mucous membranes are normal. Normal dentition. Eyes: Conjunctivae, EOM and lids are normal. No scleral icterus. Neck: Normal range of motion. Neck supple. Normal carotid pulses, no hepatojugular reflux and no JVD present. Carotid bruit is not present. No tracheal deviation present. No thyromegaly present. Cardiovascular: Normal rate, regular rhythm, S1 normal, S2 normal, normal heart sounds, intact distal pulses and normal pulses. Exam reveals no gallop, no S3, no S4, no distant heart sounds and no friction rub. No murmur heard. Pulmonary/Chest: Effort normal and breath sounds normal. No respiratory distress. She has no wheezes. She has no rales. She exhibits no tenderness. Abdominal: Soft. Bowel sounds are normal. She exhibits no distension and no mass. There is no abdominal tenderness. There is no rebound and no guarding. obese Musculoskeletal: Normal range of motion. General: Edema present. No tenderness or deformity. Comments: 1- 2+ bilateral equal pitting lower extremity edema up to the knees Lymphadenopathy: She has no cervical adenopathy. Neurological: She is alert and oriented to person, place, and time. No cranial nerve deficit. She exhibits normal muscle tone. Coordination normal. Skin: Skin is warm and dry. No ecchymosis, no petechiae and no rash noted. She is not diaphoretic. No cyanosis or erythema. No pallor. Nails show no clubbing. Psychiatric: She has a normal mood and affect. Her speech is normal and behavior is normal. Judgment normal. LABS AND OTHER DIAGNOSTIC TESTS Lab Results Component Value Date WBC 5.2 09/11/2019 HGB 11.9 09/11/2019 HCT 36.9 09/11/2019 CREATININE 0.7 09/11/2019 POTASSIUM 3.8 09/11/2019 BUNSER 18 05/29/2019 Results for orders placed or performed in visit on 07/19/19 Comprehensive metabolic panel Result Value Ref Range Sodium 140 135 - 145 mmol/L Potassium 3.8 3.3 - 5.1 mmol/L Chloride 97 96 - 108 mmol/L Carbon Dioxide 29 22 - 32 mmol/L Anion Gap 14 7 - 16 Glucose 96 70 - 100 mg/dL BUN 15 8 - 25 mg/dL Creatinine 0.7 0.5 - 1.1 mg/dL Kidney Disease Stage 86 mL/MIN Calcium 10.1 8.6 - 10.3 mg/dL Total Protein 7.4 6.4 - 8.3 g/dL Albumin 4.7 3.5 - 5.0 g/dL Globulin 2.7 2.3 - 3.5 gm/dL Albumin/Globulin Ratio 1.7 1.1 - 1.8 Total Bilirubin 0.2 0.0 - 1.2 mg/dL AST 22 0 - 32 U/L ALT 19 0 - 33 U/L Alkaline Phosphatase 74 35 - 104 U/L KAPPA/LAMBDA LIGHT CHAINS FREE WITH RATIO, SERUM Result Value Ref Range Free [place] LC, Quant 145.00 (A) 3.30 - 19.40 mg/L Free Lambda LC, Quant 6.98 5.71 - 26.30 mg/L Free [place]/Lambda Ratio 20.77 (A) 0.26 - 1.65 CBC with auto differential Result Value Ref Range WBC 5.2 3.8 - 9.9 X10 3/ul RBC 4.03 3.90 - 5.20 x10 6/ul Hemoglobin 11.9 11.9 - 15.5 g/dL Hct 36.9 35.6 - 45.5 % MCV 91.6 81.3 - 96.4 fl MCH 29.5 27.1 - 33.3 pg MCHC 32.2 (L) 32.3 - 35.7 g/dl RDW 15.6 (H) 11.1 - 14.9 % Plt Count 306 150 - 400 x10 3/ul MPV 9.4 9.1 - 12.3 fl Neut % 53.0 % Immature Gran % 0.4 % Lymph % 32.9 % [place] % 10.6 % Eos % 2.7 % AUTO BASO % 0.4 % NEUTROPHIL ABS # 2.7 1.7 - 6.5 x10 3/ul Immature Gran # 0.0 0.0 - 0.1 x10 3/ul Absolute Lymphs (auto) 1.7 0.8 - 3.3 x10 3/ul Absolute Monos (auto) 0.6 0.2 - 0.8 x10 3/ul Absolute Eos (auto) 0.1 0.0 - 0.5 x10 3/ul BASOPHIL ABS # 0.0 0.0 - 0.1 x10 3/ul Nucleat RBC Rel Count 0.0 #/100WBC NRBC abs 0.00 0.00 - 0.01 x10 3/ul Absolute Neutrophils 2,700 200 - 8,000 /ul Beta 2 microglobulin, serum Result Value Ref Range Beta 2 Microglobulin, Serum 3.3 (H) 0.0 - 3.0 mg/l IgM Result Value Ref Range IgM 23 (L) 40 - 230 mg/dL IgA Result Value Ref Range IgA 55 (L) 70 - 400 mg/dL IgG Result Value Ref Range IgG 409 (L) 700 - 1,600 mg/dL 03/28/19 Lexiscan: Conclusions: Negative EKG portion [...] medical record, and bloodwork/lipids. Jeniffer Almonte MD, [facility] This note is dictated and transcribed using Neuralieve Direct Software. Flat Breakdown Processor variancesmay occur. Despite proofreading, typographical errors may occur. ITY ASSURANCE ASSISTANT documented in this encounter Miscellaneous Notes * Addendum Note - Ella Sanchez MA - 06/07/2020 1:45 PM CSTAddended by: ELLA SANCHEZ on: 06/07/2020 05:24 PM Modules accepted: Orders ITY ASSURANCE ASSISTANT documented in this encounter Plan of Treatment Not on file documented as of this encounter Procedures Procedure Name Priority Date/Time Associated Diagnosis Comments ECG 12-LEAD Routine 06/07/2020 Pulmonary hypertension (CMS/HCC) documented in this encounter Results * ECG 12 lead (06/07/2020) Syed Almonte MD ECG ORDERABLES Final Re sult documented in this encounter Visit Diagnoses Diagnosis Mitral valve insufficiency, unspecified etiology- Primary Pulmonary hypertension (HCC) Other chronic pulmonary heart diseases Nonrheumatic mitral (valve) insufficiency Tricuspid valve insufficiency, unspecified etiology documented in this encounter Discontinued Medications Medication Sig Discontinue Reason Start Date End Da te traMADol ER (ULTRAM-ER) 200 mg 24 hr tablet 08/09/2018 06/07/2020 polyethylene glycol-electrolytes (NULYTELY) 420 gram solution MIX AND DRINK UTD Therapy completed 02/28/2019 06/07/2020 documented as of this encounter Historical Medications * This list may reflect changes made after this encounter. ferrous sulfate 325 mg (65 mg of elemental iron) tabletIndication s:Iron Deficiency Anemia Take 65 mg of elemental iron by mouth daily with breakfast 1 diphenhydrAMINE (BENADRYL) 25 mg capsule Take 25 mg by mouth nightly 3 spironolactone (ALDACTONE) 25 mg tablet Take 25 mg by mouth daily 05/31/2020 1 clarithromycin (BIAXIN) 250 mg tablet 05/24/2020 1 traMADoL (ULTRAM) 50 mg tablet TK 1 T PO D PRN P 03/19/2020 3 added in this encounter Orders Outpatient Referral Count Last Ordered Date Fir st Ordered Date AMB REFERRAL TO CARDIOLOGY 1 06/07/2020 documented in this encounter Care Teams [employer] Rep Relationship Specialty Start Date End Date Yosi Whaley MD [address] [place] [address] PCP - General 07/14/19 02/03/23 Yosi Whaley MD [address] [place] [address] 07/14/19 02/03/23 documented as of this encounter
--- OUTSIDE RECORDS SUMMARY | 2024-06-26 01:36 | XMS_ITS | Encounter Summary ---
Author Organization [facility] Address [address] [place] [address] Phone Care Team Providers Care Supervisor Body Assembly Name Role Phone Yosi Whaley MD Primary Care Provider [phone] Yosi Whaley MD Unavailable Encounter Details Date Type Department Care Team (Late st Contact Info) Description 11/14/2020 Orders Only [facility] Oncology [address] [place] [phone] Venessa Hernandez, RN Multiple myeloma not having [...] on file Legal Sex Female 3:01 AM DISBURSING AGENT Gender Identity Female 06/07/2020 11:17 AM DISBURSING AGENT Sexual Orientation Straight 06/07/2020 11 :17 AM DISBURSING AGENT documented as of this encounter Plan of Treatment Not on file documented as of this encounter Visit Diagnoses Diagnosis 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
--- OUTSIDE RECORDS SUMMARY | 2024-06-26 01:36 | XMS_ITS | Encounter Summary ---
Author Organization [facility] Address [address] [place] [address] Phone Care Team Providers Care Medical Research Associate Name Role Phone Yosi Whaley MD Primary Care Provider [phone] Yosi Whaley MD Unavailable Reason for Visit * Reason Comments Follow-up Encounter Details Date Type Department Care Team (Late st Contact Info) Description 12/10/2020 11:45 AM CDT Office Visit [facility] Oncology [address] [place] [address] [address] [place] [address] Akbar Pittman Jr., MD [facility] [address] Multiple myeloma not having achieved [...] on file Legal Sex Female 3:01 AM MANAGER DOMESTIC Gender Identity Female 06/07/2020 11:17 AM MANAGER DOMESTIC Sexual Orientation Straight 06/07/2020 11 :17 AM MANAGER DOMESTIC documented as of this encounter Last Filed Vital Signs Vital Sign Reading Time Taken Comments Blood Pressure 149/89 12/10/2020 11:56 AM CDT Pulse 56 12/10/2020 11:56 AM CDT Temperature 36.7 ??C (98 ??F) 12/10/2020 11:56 AM CDT Respiratory Rate 18 12/10/2020 11:56 AM CDT Oxygen Saturation 97% 12/10/2020 11:56 AM CDT Inhaled Oxygen Concentration - - Weight 90.4 kg (199 lb 3.2 oz) 12/10/2020 11:56 AM CDT Height 172.7 cm (5' 8 ) 12/10/2020 11:56 AM CDT Body Mass Index 30.29 12/10/2020 11:56 AM CDT documented in this encounter Progress Notes * Akbar Pittman Jr., MD - 12/10/2020 11:45 AM CDT Patient ID: Sloane Elise is a 79 y.o. female, comes in today for results of testing. Primary Care Provider: Yosi Whaley MD Assessment/Plan 1. 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 2. 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 Routine follow-up in 1 year. HPI December 10, 2020 comes in today for [...] cell count was 4.9, platelet count was [id number]. Metabolic profile was unremarkable. IgG was 350, [...] was 13 g, and a platelet countof [id number]. A complete metabolic profile was unremarkable. LDH [...] Gastrointestinal: Negative. Endocrine: Negative. Genitourinary: Negative. Musculoskeletal: Negative. Skin: Negative. Hematological: Negative. Psychiatric/Behavioral: Negative. Pain: negative. Physical Exam: Vital Signs for this encounter: BSA: 2.08 meters squared BP 149/89 (BP Location: Right arm) Pulse 56 Temp 36.7 ??C (98 ??F) (Oral) Resp 18 Ht 172.7 cm (5' 8 ) Wt 90.4 kg (199 lb 3.2 oz) SpO2 97% BMI 30.29 kg/m?? Physical Exam Constitutional: General: She is [...] LIGHT CHAINS FREE WITH RATIO, SERUM Routine 12/04/2021 9:24 AM CDT Multiple myeloma not having achieved remission (CMS/HCC) (HCC) CBC WITH AUTO DIFFERENTIAL Routine 12/04/2021 9:24 AM CDT Multiple myeloma not having achieved remission (CMS/HCC) (HCC) PROTEIN ELECTROPHORESIS, WITH REFLEX, SERUM Routine 12/04/2021 9:24 AM CDT Multiple myeloma not having achieved remission (CMS/HCC) (HCC) LACTATE DEHYDROGENASE Routine 12/04/2021 9:24 AM CDT Multiple myeloma not having achieved remission (CMS/HCC) (HCC) IGA Routine 12/04/2021 9:24 AM CDT Multiple myeloma not having achieved remission (CMS/HCC) (HCC) IGM Routine 12/04/2021 9:24 AM CDT Multiple myeloma not having achieved remission (CMS/HCC) (HCC) IGG Routine 12/04/2021 9:24 AM CDT Multiple myeloma not having achieved remission (CMS/HCC) (HCC) BETA 2 MICROGLOBULIN SERUM Routine 12/04/2021 9:24 AM CDT Multiple myeloma not having achieved remission (CMS/HCC) (HCC) COMPREHENSIVE METABOLIC PANEL Routine 12/04/2021 9:24 AM CDT Multiple myeloma not having achieved remission (CMS/HCC) (HCC) documented in this encounter Results * (ABNORMAL) IgM (12/04/2021 9:24 AM CDT) Immunoglobulin M 23(L) 50 - 300 mg/dL [facility] Blood specimen (specimen) 12/04/2021 9:24 AM CDT 12/04/2021 9:25 AM CDT Akbar Pittman Jr., MD LAB BLOOD ORDERABLES Final Result Performing Organization Address [facility] de Phone Number QUEST [facility] [address] [place] [address] * (ABNORMAL) IgA (12/04/2021 9:24 AM CDT) Pathologist [facility] Immunoglobulin A 57(L) 70 - 320 mg/dL [facility] Blood specimen (specimen) 12/04/2021 9:24 AM CDT 12/04/2021 9:25 AM CDT us Akbar Pittman Jr., MD LAB BLOOD ORDERABLES Final Result Performing Organization Address [facility] Phone Number [facility] [address] [place] [address] * (ABNORMAL) Protein Electrophoresis, With Reflex, Serum (12/04/2021 9:24 AM CDT) Pathologist [facility] Protein, sr 6.4 6.1 - 8.1 g/dL [facility] ALBUMIN 4.2 3.8 - 4.8 g/dL [facility] Alpha-1 Globulin 0.3 0.2 - 0.3 g/dL [facility] Alpha-2 Globuliin 0.8 0.5 - 0.9 g/dL [facility] Beta-1 globulin 0.4 0.4 - 0.6 g/dL [facility] Beta 2 globulin 0.3 0.2 - 0.5 g/dL [facility] Gamma globulin 0.5(L) 0.8 - 1.7 g/dL [facility] Abnormal protein band 0.2(H) NONE DETECTED g/dL [facility] SPE, interp [facility] Comment: Faint restricted band (M-spike) migrating in the gamma region. Consider serum immunofixation to rule out a monoclonal protein if clinically indicated. Blood specimen (specimen) 12/04/2021 9:24 AM CDT 12/04/2021 9:25 AM CDT us Akbar Pittman Jr., MD LAB BLOOD ORDERABLES Final Result Performing Organization Address [facility] de Phone Number [facility] [address] [place] [address] * (ABNORMAL) Beta 2 microglobulin, serum (12/04/2021 9:24 AM CDT) Beta 2 Microglobulin, Serum 4.02(H) < OR = 2.51 mg/L [facility] Blood specimen (specimen) 12/04/2021 9:24 AM CDT 12/04/2021 9:25 AM CDT Akbar Pittman Jr., MD LAB BLOOD ORDERABLES Final Result Performing Organization Address [facility] Phone Number [facility] [address] [place] [address] * (ABNORMAL) KAPPA/LAMBDA LIGHT CHAINS FREE WITH RATIO, SERUM (12/04/2021 9:24 AM CDT) Chatham light chain, free 151.0(H) 3.3 - 19.4 mg/L [facility] Lambda light chain, free 8.1 5.7 - 26.3 mg/L [facility] Chatham/Lambda light chains free with ratio 18.64(H) 0.26 - 1.65 [facility] Comment: Free kappa/lambda ratio in serum of [...] therapy of these disorders. Blood specimen (specimen) 12/04/2021 9:24 AM CDT 12/04/2021 9:25 AM CDT Akbar Pittman Jr., MD LAB BLOOD ORDERABLES Final Result Performing Organization Address [facility] de Phone Number QUE[facility] [address] [place] [address] * (ABNORMAL) IgG (12/04/2021 9:24 AM CDT) Pathologist [facility] Immunoglobulin G 368(L) 600 - 1,540 mg/dL [facility] Blood specimen (specimen) 12/04/2021 9:24 AM CDT 12/04/2021 9:25 AM CDT Akbar Pittman Jr., MD LAB BLOOD ORDERABLES Final Result Performing Organization Address [facility] de Phone Number QUEST [facility] [address] [place] [address] * Lactate dehydrogenase (LD) (12/04/2021 9:24 AM CDT) [facility] Lactate dehydrogenase (LDH) 164 120 - 250 U/L [facility] Blood specimen (specimen) 12/04/2021 9:24 AM CDT 12/04/2021 9:25 AM CDT Akbar Pittman Jr., MD LAB BLOOD ORDERABLES Final Result Performing Organization Address [facility] de Phone Number QUEST [facility] [address] [place] [address] * (ABNORMAL) CBC with auto differential (12/04/2021 9:24 AM CDT) [facility] WBC 4.0 3.8 - 10.8 Thousand/u L [facility] RBC, POC 3.95 3.80 - 5.10 Million/uL [facility] Hgb 12.1 11.7 - 15.5 g/dL [facility] Hct 38.1 35.0 - 45.0 % [facility] MCV 96.5 80.0 - 100.0 fL [facility] MCH 30.6 27.0 - 33.0 pg [facility] MCHC 31.8(L) 32.0 - 36.0 g/dL [facility] Rdw 15.6(H) 11.0 - 15.0 % [facility] Platelets 247 140 - 400 Thousand/u L [facility] MPV 10.2 7.5 - 12.5 fL [facility] Neutrophils, abs 1,468(L) 1,500 - 7,800 cells/uL [facility] Lymphocytes, abs 2,028 850 - 3,900 cells/uL [facility] Monocyte abs 316 200 - 950 cells/uL [facility] Eosinophils, abs 168 15 - 500 cells/uL [facility] Basophils, abs 20 0 - 200 cells/uL [facility] Neutrophils 36.7 % [facility] Lymphocyte pct 50.7 % [facility] Monocytes 7.9 % [facility] Eosinophils 4.2 % [facility] Basophils 0.5 % [facility] Blood specimen (specimen) 12/04/2021 9:24 AM CDT 12/04/2021 9:25 AM CDT us Akbar Pittman Jr., MD LAB BLOOD ORDERABLES Final Result [facility] [address] [address] * (ABNORMAL) Comprehensive metabolic panel (12/04/2021 9:24 AM CDT) Glucose 154(H) 65 - 99 mg/dL [facility] Comment: ? Fasting reference interval For someone without known diabetes, a glucose value >125 mg/dL indicates that they may have diabetes and this should be confirmed with a follow-up test. BUN 18 7 - 25 mg/dL [facility] Creatinine 0.84 0.60 - 0.88 mg/dL [facility] Comment: For patients >49 years of age, the reference limit for Creatinine is approximately 13% higher for people identified as -[place] African. eGFR NON-AFR. IVORIAN 66 > OR = 60 mL/min/1 .73m2 [facility] EGFR 76 > OR = 60 mL/min/1 .73m2 [facility] BUN/creat ratio NOT APPLICABLE 6 - 22 (calc) [facility] Sodium 140 135 - 146 mmol/L [facility] Potassium, pl 3.8 3.5 - 5.3 mmol/L [facility] Chloride 100 98 - 110 mmol/L [facility] CO2 30 20 - 32 mmol/L [facility] Calcium 9.6 8.6 - 10.4 mg/dL [facility] Protein, sr 6.4 6.1 - 8.1 g/dL [facility] Albumin 4.4 3.6 - 5.1 g/dL [facility] GLOBULIN 2.0 1.9 - 3.7 g/dL (calc) [facility] Alb/glob ratio 2.2 1.0 - 2.5 (calc) [facility] Bilirubin, total 0.3 0.2 - 1.2 mg/dL [facility] Alk phos 68 37 - 153 U/L [facility] AST 16 10 - 35 U/L [facility] ALT (SGPT) 12 6 - 29 U/L [facility] Blood specimen (specimen) 12/04/2021 9:24 AM CDT 12/04/2021 9:25 AM CDT us Akbar Pittman Jr., MD LAB BLOOD ORDERABLES Final Result [facility] [address] [address] documented in this encounter Visit Diagnoses Diagnosis Multiple myeloma not having achieved remission (CMS/HCC) (HCC) documented in this encounter Historical Medications * This list may reflect changes made after this encounter. gabapentin (NEURONTIN) 600 mg tablet 12/02/2020 naltrexone (LOW DOSE) 4.5 mg capsule Take 4.5 mg by mouth daily 12/25/2022 added in this encounter Orders Appointment Requests Count Last Ordered Date Fi rst Ordered Date ONCBCN CLINIC APPOINTMENT REQUEST 2 022 12/10/2020 documented in this encounter Care Teams Medical Research Associate Relationship Specialty Start Date End Date Yosi Whaley MD [address] [place] [address] PCP - General 07/14/19 02/03/23 Yosi Whlaey MD [address] [place] [address] 07/14/19 02/03/23 documented as of this encounter
--- OUTSIDE RECORDS SUMMARY | 2024-06-26 01:36 | XMS_ITS | Encounter Summary ---
Author Organization [facility] Address [address] [place] [address] Care Team Providers Care Oven Heater Name Role Phone Yosi Whaley MD Primary Care Provider [phone] Yosi Whaley MD Unavailable Encounter Details Date Type Department Care Team (Late st Contact Info) Description 08/16/[address] [facility] Cardiology [address] [place] [address] Syed Almonte MD [address] [facility] [address] [place] [address] Social History Tobacco Use Types Packs/Day Years [...] on file Legal Sex Female 3:01 AM SINGING TEACHER Gender Identity Female 06/07/2020 11:17 AM SINGING TEACHER Sexual Orientation Straight 06/07/2020 11 :17 AM SINGING TEACHER documented as of this encounter Miscellaneous Notes * Telephone Encounter - Camila Giang RN - 08/16/2020 8:54 AM SINGING TEACHER Spoke with pt, she asked if she needed PCN before a teeth cleaning and I told her no, she wanted tomake us aware that her shingles are back and she is having some tingling pain with it, and she wanted to report the she has weird blood and she is at a higher risk to get multiple myeloma. ING TEACHER * Telephone Encounter - Margaret Case - 08/16/2020 8:17 AM CST Pt called to report that she covid in late May 2020 into early Jun 2020 Pt states the the covid virus reactivated her shingles. Pt requested a return call to discuss. [phone] ING TEACHER documented in this encounter Plan of Treatment Not on file documented as of this encounter Visit Diagnoses Not on filedocumented in this encounter Care Teams Oven Heater Relationship Specialty Start Date End Date Yosi Whaley MD [address] [place] [address] PCP - General 07/14/19 02/03/23 Yosi Whaley MD [address] [place] [address] 07/14/19 02/03/23 documented as of this encounter
--- OUTSIDE RECORDS SUMMARY | 2024-06-26 01:36 | XMS_ITS | Encounter Summary ---
Author Organization [facility] Address [address] [place] [address] Phone Care Team Providers Care Personnel Quality Assurance Auditor Name Role Phone Yosi Whaley MD Primary Care Provider [phone] Yosi Whaley MD Unavailable Encounter Details Date Type Department Care Team (Late st Contact Info) Description 07/19/2019 Orders Only [facility] Oncology [address] [place] [address] Jennifer Ceja, RN Multiple myeloma not having achieved remission [...] on file Legal Sex Female 3:01 AM ELECTRIC WELDER HELPER Gender Identity Female 06/07/2020 11:17 AM ELECTRIC WELDER HELPER Sexual Orientation Straight 06/07/2020 11 :17 AM ELECTRIC WELDER HELPER documented as of this encounter Miscellaneous Notes * Addendum Note - Desiree Brar - 07/19/2019 5:01 PM CSTAddended by: DESIREE BRAR on: 09/06/2019 11:45 AM Modules accepted: Orders * Addendum Note - Desiree Brar - 07/19/2019 5:01 PM CSTAddended by: DESIREE BRAR on: 09/06/2019 11:46 AM Modules accepted: Orders documented in this encounter Plan of Treatment Not on file documented as of this encounter Procedures Procedure Name Priority Date/Time Associated Diagnosis Comments KAPPA/LAMBDA LIGHT CHAINS FREE WITH RATIO, SERUM Routine 09/11/2019 10:22 AM CDT Multiple myeloma not having achieved remission (CMS/HCC) CBC WITH AUTO DIFFERENTIAL Routine 09/11/2019 10:22 AM CDT Multiple myeloma not having achieved remission (CMS/HCC) IGA Routine 09/11/2019 10:22 AM CDT Multiple myeloma not having achieved remission (CMS/HCC) IGM Routine 09/11/2019 10:22 AM CDT Multiple myeloma not having achieved remission (CMS/HCC) IGG Routine 09/11/2019 10:22 AM CDT Multiple myeloma not having achieved remission (CMS/HCC) BETA 2 MICROGLOBULIN SERUM Routine 09/11/2019 10:22 AM CDT Multiple myeloma not having achieved remission (CMS/HCC) COMPREHENSIVE METABOLIC PANEL Routine 09/11/2019 10:22 AM CDT Multiple myeloma not having achieved remission (CMS/HCC) documented in this encounter Results * (ABNORMAL) IgG (09/11/2019 10:22 AM CDT) IgG 409(L) 700 - 1,600 mg/dL [facility] Blood specimen (specimen) 09/11/2019 10:22 AM CDT 09/11/2019 10:28 AM CDT Narrative Resulting Agency Comment RCR us Akbar Pittman Jr., MD LAB BLOOD ORDERABLES Final Result Performing Organization Address [facility] Co de Phone Number [address] [phone] * (ABNORMAL) IgA (09/11/2019 10:22 AM CDT) IgA 55(L) 70 - 400 mg/dL [facility] Blood specimen (specimen) 09/11/2019 10:22 AM CDT 09/11/2019 10:28 AM CDT Narrative Resulting Agency Comment RCR Akbar Pittman Jr., MD LAB BLOOD ORDERABLES Final Result Performing Organization Address [facility] de Phone Number [address] [phone] * (ABNORMAL) IgM (09/11/2019 10:22 AM CDT) IgM 23(L) 40 - 230 mg/dL [facility] Blood specimen (specimen) 09/11/2019 10:22 AM CDT 09/11/2019 10:28 AM CDT Narrative Resulting Agency Comment RCR Akbar Pittman Jr., MD LAB BLOOD ORDERABLES Final Result Performing Organization Address [facility] de Phone Number [address] [phone] * (ABNORMAL) Beta 2 microglobulin, serum (09/11/2019 10:22 AM CDT) Beta 2 Microglobulin, Serum 3.3(H) 0.0 - 3.0 mg/l [facility] Blood specimen (specimen) 09/11/2019 10:22 AM CDT 09/11/2019 10:28 AM CDT Narrative Resulting Agency Comment RCR Akbar Pittman Jr., MD LAB BLOOD ORDERABLES Final Result Performing Organization Address City/[facility]/[place]IP [place] [address], [facility] [phone] * (ABNORMAL) CBC with auto differential (09/11/2019 10:22 AM CDT) WBC 5.2 3.8 - 9.9 X10 3/ul [facility] RBC 4.03 3.90 - 5.20 x10 6/ul [facility] Hemoglobin 11.9 11.9 - 15.5 g/dL [facility] Hct 36.9 35.6 - 45.5 % [facility] MCV 91.6 81.3 - 96.4 [facility] MCH 29.5 27.1 - 33.3 pg [facility] MCHC 32.2(L) 32.3 - 35.7 g/dl [facility] RDW 15.6(H) 11.1 - 14.9 % [facility] Plt Count 306 150 - 400 x10 3/ul [facility] MPV 9.4 9.1 - 12.3 [facility] Neut % 53.0 % [facility] Immature Gran % 0.4 % [facility] Lymph % 32.9 % [facility] O'Brien % 10.6 % [facility] Eos % 2.7 % [facility] AUTO BASO % 0.4 % [facility] NEUTROPHIL ABS # 2.7 1.7 - 6.5 x10 3/ul [facility] Immature Gran # 0.0 0.0 - 0.1 x10 3/ul [facility] Absolute Lymphs (auto) 1.7 0.8 - 3.3 x10 3/ul [facility] Absolute Monos (auto) 0.6 0.2 - 0.8 x10 3/ul [facility] Absolute Eos (auto) 0.1 0.0 - 0.5 x10 3/ul [facility] BASOPHIL ABS # 0.0 0.0 - 0.1 x10 3/ul [facility] Nucleat RBC Rel Count 0.0 #/100WBC [facility] NRBC abs 0.00 0.00 - 0.01 x10 3/ul [facility] Absolute Neutrophils 2,700 200 - 8,000 /ul [facility] Blood specimen (specimen) 09/11/2019 10:22 AM CDT 09/11/2019 10:28 AM CDT Narrative Resulting Agency Comment RCR Akbar Pittman Jr., MD LAB BLOOD ORDERABLES Final Result Performing Organization Address City/[facility]/ZIP Co de Phone Number [facility] [address] [address] * (ABNORMAL) KAPPA/LAMBDA LIGHT CHAINS FREE WITH RATIO, SERUM (09/11/2019 10:22 AM CDT) Free Cascade LC, Quant 145.00(A) 3.30 - 19.40 mg/L [facility] Free Lambda LC, Quant 6.98 5.71 - 26.30 mg/L [facility] Free Cascade/Lambda Ratio 20.77(A) 0.26 - 1.65 [facility] Comment: Performed by [employer] [facility], [address] [place] [address] [email or web address], Jean-Paul Ramirez MD, Lab. Director Blood specimen (specimen) 09/11/2019 10:22 AM CDT 09/11/2019 10:28 AM CDT Narrative Resulting Agency Comment RCR Akbar Pittman Jr., MD LAB BLOOD ORDERABLES Final Result Performing Organization Address [facility] Co de Phone Number [facility] [address] [place] [address], [facility] [phone] * Comprehensive metabolic panel (09/11/2019 10:22 AM CDT) Sodium 140 135 - 145 mmol/L [facility] Potassium 3.8 3.3 - 5.1 mmol/L [facility] Chloride 97 96 - 108 mmol/L [facility] Carbon Dioxide 29 22 - 32 mmol/L [facility] Anion Gap 14 7 - 16 [facility] Glucose 96 70 - 100 mg/dL [facility] BUN 15 8 - 25 mg/dL [facility] Creatinine 0.7 0.5 - 1.1 mg/dL [facility] Comment: NOTE: Estimated GFR (Cockroft-Gault) will NOT be calculated unless patient Height and Weight were entered. Also, Kidney Disease Stage (GFR) and Estimated GFR (Cockroft-Gault) will NOT be calculated if Creatinine result is <0.2. Kidney Disease Stage 86 mL/MIN [facility] Comment: NOTE; ??The GFR is an estimated value using the creatinine, sex, age, and race of the patient. THE Estimated Kidney Disease GFR is validated for AGES 18-70 YEARS STAGE ?mL/Min ?DESCRIPTION ??1 ?90 mL/min or more ?Normal or elevated GFR ??2 ? 60-89 mL/min ?Mildly decreased GFR ??3 ? 30-59 mL/min ?Moderately decreased GFR ??4 ? 15-29 mL/min ?Severely decreased GFR ??5 ? <15 mL/min ? Kidney failure or on dialysis Calcium 10.1 8.6 - 10.3 mg/dL [facility] Total Protein 7.4 6.4 - 8.3 g/dL [facility] Albumin 4.7 3.5 - 5.0 g/dL [facility] Globulin 2.7 2.3 - 3.5 gm/dL [facility] Albumin/Globulin Ratio 1.7 1.1 - 1.8 [facility] Total Bilirubin 0.2 0.0 - 1.2 mg/dL [facility] AST 22 0 - 32 U/L [facility] ALT 19 0 - 33 U/L [facility] Alkaline Phosphatase 74 35 - 104 U/L [facility] Blood specimen (specimen) 09/11/2019 10:22 AM CDT 09/11/2019 10:28 AM CDT Narrative Resulting Agency Comment RCR us Akbar Pittman Jr., MD LAB BLOOD ORDERABLES Final Result [facility] [address] [place] [address] documented in this encounter Visit Diagnoses Diagnosis Multiple myeloma not having achieved remission (CMS/HCC) (HCC)- Primary documented in this encounter Orders Appointment Requests Count Last Ordered Date Fi rst Ordered Date ONCBCN LAB APPOINTMENT 1 09/11/2019 documented in this encounter Care Teams Personnel Quality Assurance Auditor Relationship Specialty Start Date End Date Yosi Whaley MD [address] [place] [address] PCP - General 07/14/19 02/03/23 Yosi Whaley MD [address] [place] [address] 07/14/19 02/03/23 documented as of this encounter
--- OUTSIDE RECORDS SUMMARY | 2024-06-26 01:36 | XMS_ITS | Encounter Summary ---
Author Organization [facility] Healthcare Address [address] [place] [address] Care Team Providers Care News Internship Name Role Phone Yosi Whaley MD Primary Care Provider [phone] Yosi Whaley MD Unavailable Encounter Details Date Type Department Care Team (Late st Contact Info) Description 09/11/2019 10:12 AM CDT - 09/19/2019 11:59 PM CDT Hospital Encounter [facility] Akbar Pittman Jr., MD [address] [facility] [place] [address] Social History Tobacco Use Types Packs/Day Years [...] on file Legal Sex Female 3:01 AM GREASE PRESS HELPER Gender Identity Female 06/07/2020 11:17 AM GREASE PRESS HELPER Sexual Orientation Straight 06/07/2020 11 :17 AM GREASE PRESS HELPER COVID-19 Exposure Response Date Recorded In the last month, have you been in contact with someone who was confirmed or suspected to have Coronavirus / COVID-19? No / Unsure 09/11/2019 10:05 AM CDT documented as of this encounter Medications at Time of Discharge ezetimibe (ZETIA) 10 mg tablet TK 1 T PO QD 3 02/27/2019 fluticasone (FLONASE) 50 mcg/actuation nasal spray glucosam velasquez nbe-orcpoenhs-O- [place] [id number] mg capsule hydroCHLOROthiaz angela (HYDRODIURIL) 25 mg tablet TK 1 T PO QD 2 07/12/2018 levothyroxine (SYNTHROID, LEVOTHROID) 50 mcg tablet TK 1 T PO QD 3 05/27/2018 metoprolol XL (TOPROL-XL) 100 mg 24 hr tablet TK 1 T PO D 3 06/27/2018 montelukast (SINGULAIR) 10 mg tablet TK 1 T PO D 3 08/18/2018 MULTIVITAMIN ORAL Take by mouth omeprazole (PriLOSEC) 20 mg capsule Take 1 capsule (20 mg total) by mouth daily TURMERIC ORAL Take by mouth amLODIPine (NORVASC) 2.5 mg tablet TK 1 T PO QD 8 08/06/2018 4 ascorbic acid (ascorbic acid) 500 mg tablet,chewable 1 aspirin 81 mg tablet Take 1 tablet (81 mg total) by mouth every other day 4 biotin 10,000 mcg capsule Take by mouth 1 cetirizine (ALLERGY RELIEF, CETIRIZINE,) 10 mg tablet Take 10 mg by mouth daily 1 clobetasol (TEMOVATE) 0.05 % ointment Apply topically 2 (two) times a day 3 docosahexanoic acid/epa (FISH OIL ORAL) Take by mouth 4 ergocalciferol (VITAMIN D) 50,000 unit capsule TK 1 C PO Q 2 WEEKS UTD 3 05/27/2018 3 estradiol (ESTRACE) 0.01 % (0.1 mg/gram) vaginal cream I 1 GRAM VAGINALLY 3 TIMES Q WK 3 07/31/2018 1 fexofenadine HCl (ASHLEY ALLERGY ORAL) Take by mouth 1 magnesium oxide 400 mg magnesium tablet Take by mouth 4 metroNIDAZOLE 1 % gel with pump U ONE PUMP BID 1 06/22/201807/05 1 naproxen (ANAPROX,ALEVE) 220 mg tablet Take by mouth 2 (two) times a day with meals 3 niacin 500 mg tablet Take 500 mg by mouth daily with breakfast 2 polyethylene glycol-electroly lalitha (NULYTELY) 420 gram solution MIX AND DRINK UTD 0 02/28/2019 0 propylene glycol (SYSTANE BALANCE) 0.6 % drops Administer into affected eye(s) 1 quinapril (ACCUPRIL) 20 mg tablet TK 2 TS PO D 2 07/31/2018 3 traMADol ER (ULTRAM-ER) 200 mg 24 hr tablet 3 08/09/2018 0 traZODone (DESYREL) 50 mg tablet TK 1 T PO QD HS 5 08/09/2018 1 vitamin E (AQUASOL E) 400 unit capsule 4 documented as of this encounter Plan of Treatment Not on file documented as of this encounter Visit Diagnoses Not on filedocumented in this encounter Care Teams News Internship Relationship Specialty Start Date End Date Yosi Whaley MD [address] [place] [address] PCP - General 07/14/19 02/03/23 Yosi Whaley MD [address] [place] [address] 07/14/19 02/03/23 documented as of this encounter
--- OUTSIDE RECORDS SUMMARY | 2024-06-26 01:37 | XMS_ITS | Encounter Summary ---
Author Organization [facility] Address [address] [place] [address] Phone Care Team Providers Care Educator Senior Clinical Name Role Phone Yosi Whaley MD Primary Care Provider [phone] Encounter Details Date Type Department Care Team (Late st Contact Info) Description 07/04/2019 Telephone [facility] Oncology [address] [place] [id number] Akbar Pittman Jr., MD [address] [place] [address] Social History Tobacco Use Types Packs/Day Years [...] on file Legal Sex Female 3:01 AM SECURITY SERGEANT Gender Identity Female 06/07/2020 11:17 AM SECURITY SERGEANT Sexual Orientation Straight 06/07/2020 11 :17 AM SECURITY SERGEANT documented as of this encounter Miscellaneous Notes * Telephone Encounter - Jennifer Ceja RN - 07/06/2019 11:48 AM SECURITY SERGEANT Message left for Dr. Whaley's medical art therapist and advised that patient has appointment on 07-[address] Pittman will let him know after evaluation. RITY SERGEANT * Telephone Encounter - Jennifer Ceja RN - 07/04/2019 4:29 PM CST Please see phone note and advise. Denae Nava RITY SERGEANT * Telephone Encounter - Iraida Christianson MA - 07/04/2019 12:26 PM CST Saige with Dr. Whaley's office called wanting to know if thought a bone marrow biopsy would be appropriate for patient for consideration of Multiple myeloma dx. Dr. Whaley to order if so.Patient has follow up appt on 07/10/19 with . Please advise. RITY SERGEANT documented in this encounter Plan of Treatment Not on file documented as of this encounter Visit Diagnoses Not on filedocumented in this encounter Care Teams Educator Senior Clinical Relationship Specialty Start Date End Date Yosi Whaley MD [address] [place] [address] PCP - General 03/08/13 07/13/19 documented as of this encounter
--- OUTSIDE RECORDS SUMMARY | 2024-06-26 01:37 | XMS_ITS | Encounter Summary ---
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
--- OUTSIDE RECORDS SUMMARY | 2024-06-26 01:37 | XMS_ITS | Encounter Summary ---
Author Organization [facility] Healthcare Address [address] [place] [address] Care Team Providers Care Chiropractic Practice Manager Name Role Phone Yosi Whaley MD Primary Care Provider [phone] Yosi Whaley MD Unavailable Encounter Details Date Type Department Care Team (Late st Contact Info) Description 07/17/2019 12:51 PM DRAMATIC DIRECTOR Hospital Encounter [facility] INTER[facility] Akbar Pittman Jr., MD [facility] [place] [address] Social History Tobacco Use Types Packs/Day Years Used Date Smoking Tobacco: Never Assessed AUDIT-C Answer Date Recorded Frequency of Alcohol Consumption Never 08/29/2018 Average Number of Drinks Not on file 019 Frequency of Binge Drinking Not on file 08/19 Comments Unknown Sex and Gender Information Value Date Recorded Sex Assigned at Not on file Legal Sex Female 3:01 AM DRAMATIC DIRECTOR Gender Identity Female 06/07/2020 11:17 AM DRAMATIC DIRECTOR Sexual Orientation Straight 06/07/2020 11 :17 AM DRAMATIC DIRECTOR documented as of this encounter Medications at Time of Discharge ezetimibe (ZETIA) 10 mg tablet TK 1 T PO QD 3 02/27/2019 fluticasone (FLONASE) 50 mcg/actuation nasal spray glucosam velasquez xbo-icbopnjzi-R- [place] [id number] mg capsule hydroCHLOROthiaz angela (HYDRODIURIL) 25 mg [...] Name Priority Date/Time Associated Diagnosis Comments PET/CT TUMOR WHOLE BODY 07/17/2019 12:00 AM DRAMATIC DIRECTOR documented in this encounter Results * PET/CT TUMOR WHOLE BODY (07/17/2019 12:00 AM DRAMATIC DIRECTOR) Anatomical Region Laterality Modality N/A Positron Emissio n Tomography (PET) 07/18/2019 10:2 1 AM DRAMATIC DIRECTOR Narrative 07/18/2019 10:48 AM DRAMATIC DIRECTOR Patient Name: RIGOBERTO ELISE ?Ordering Dr: Akbar Pittman Jr, MD ?? D.O.B: 1940 ? Exam Date: 07/17/19 ?? 0000 ?? Age: 78 ?Sex: Female ? MR#: [id number] ?? Loc: ? RADIOLOGY REPORT ?? Order #[id number] ?? PET ? PET/CT Whole Body-OP Use Only ? Signed ? EXAM DESCRIPTION: ?? PET/CT WHOLE BODY-OP USE ONLY ? REASON FOR STUDY: ??MGUS versus multiple myeloma abnormal blood work, no ?? previous chemotherapy or radiation, PET-CT for staging and initial treatment ?? strategy. ? RADIOPHARMACEUTICAL: ??11.8 mCi F-18 Fluorodeoxyglucose (FDG) via a left ?? antecubital IV site. ? TECHNIQUE: ??The patient's fasting blood glucose level, measured by glucometer ?? before injection of FDG, was 97 mg/dL. ??After intravenous administration of ?? FDG, noncontrast CT images were obtained for attenuation correction and for ?? fusion with emission PET images to allow for anatomical localization of PET ?? findings. ??Emission PET images were then obtained. The area imaged spanned the ?? region from just below the skull vertex to the thighs. The uptake time was ?? approximately 60 minutes. ? COMPARISON: ??No prior PET-CT. MRI lumbar spine 07/21/2018. ? FINDINGS: ? Head: Normal FDG uptake is seen in the included portion of the brain. ? Neck: Physiologic uptake is present in the paired lymphoid structures. No ?? hypermetabolic lymphadenopathy is identified. ? Chest: No abnormal FDG activity is seen in the lung parenchyma. There are no ?? suspicious pulmonary nodules. No hypermetabolic lymphadenopathy in the ?? axillae, mediastinum, or ella. There is no pleural or pericardial effusion. ?? Heart size within normal limits. ? Abdomen and Pelvis: Liver and spleen demonstrate normal activity without focal ?? FDG uptake. Diffuse hepatic steatosis is noted. ??Gallbladder is unremarkable. ? Pancreas and both adrenal glands demonstrate normal FDG activity. Normal ?? genitourinary and gastrointestinal activity is seen. There are no ?? hypermetabolic lymph nodes in the abdomen and pelvis. ? Bones: Low level FDG activity is seen within the osseous structures, without ?? specific abnormal metabolic activity to correspond to the abnormal bone marrow ?? signal as seen in the lumbar spine on the MRI from 07/21/2018. There is a ?? focal site of FDG activity present in the left scapula at the interval between ?? the acromion and coracoid process, there is no associated osseous lesion and ?? therefore this is deemed unlikely to be related to multiple myeloma. ??There is ?? arthritic activity in the knees and ankles. ? IMPRESSION: ? 1. ??No convincing evidence of FDG avid multiple myeloma. ? 2. ??Focal intense activity interposed at the cortical surface between the ?? coracoid process and glenoid of the left scapula with no associated CT ?? abnormality, unlikely to be related to multiple myeloma. ??Could confirm the ?? absence of an osseous abnormality at this location with an MRI. ? 3. ??Only very mild nonfocal FDG activity associated with the heterogeneous ?? marrow in the lumbar spine, without evidence of focal multiple myeloma. ? THIS IS AN ELECTRONICALLY VERIFIED FINAL REPORT ?? 07/18/2019 10:48 AM - Electronically signed by Sina Thomason M.D. ?? Sina Thomason M.D. ? CH: ?? D: ??07/18/2019 10:30 AM ?? T: ??07/18/2019 10:33 AM ? Report ID: [id number] ?? Reading Location: ??[id number] ? REPORT ELECTRONICALLY SIGNED IN OTHER VENDOR SYSTEM ?? Resulting Agency Comment O Procedure Note Sina Thomason Jr., MD - 07/18/2019 Patient Name: RIGOBERTO ELISE Dr: Akbar Pittman Jr, MD D.O.B: 1940 Exam Date: 07/17/19 0000 Age: 78 Sex: Female MR#: [id number] Loc: RADIOLOGY REPORT Order #[id number] PET PET/CT Whole Body-OP Use Only Signed EXAM DESCRIPTION: PET/CT WHOLE BODY-OP USE ONLY REASON FOR STUDY: MGUS versus multiple myeloma abnormal blood work, no previous chemotherapy or radiation, PET-CT for staging and initialtreatment strategy. RADIOPHARMACEUTICAL: 11.8 mCi F-18 Fluorodeoxyglucose (FDG) via a left antecubital IV site. TECHNIQUE: The patient's fasting blood glucose level, measured byglucometer before injection of FDG, was 97 mg/dL. After intravenous administrationof FDG, noncontrast CT images were obtained for attenuation correction andfor fusion with emission PET images to allow for anatomical localization ofPET findings. Emission PET images were then obtained. The area imagedspanned the region from just below the skull vertex to the thighs. The uptake timewas approximately 60 minutes. COMPARISON: No prior PET-CT. MRI lumbar spine 07/21/2018. FINDINGS: Head: Normal FDG uptake is seen in the included portion of the brain. Neck: Physiologic uptake is present in the paired lymphoid structures. No hypermetabolic lymphadenopathy is identified. Chest: No abnormal FDG activity is seen in the lung parenchyma. There areno suspicious pulmonary nodules. No hypermetabolic lymphadenopathy in the axillae, mediastinum, or ella. There is no pleural or pericardialeffusion. Heart size within normal limits. Abdomen and Pelvis: Liver and spleen demonstrate normal activity withoutfocal FDG uptake. Diffuse hepatic steatosis is noted. Gallbladder isunremarkable. Pancreas and both adrenal glands demonstrate normal FDG activity. Normal genitourinary and gastrointestinal activity is seen. There are no hypermetabolic lymph nodes in the abdomen and pelvis. Bones: Low level FDG activity is seen within the osseous structures,without specific abnormal metabolic activity to correspond to the abnormal bonemarrow signal as seen in the lumbar spine on the MRI from 07/21/2018. There is a focal site of FDG activity present in the left scapula at the intervalbetween the acromion and coracoid process, there is no associated osseous lesionand therefore this is deemed unlikely to be related to multiple myeloma.There is arthritic activity in the knees and ankles. IMPRESSION: 1. No convincing evidence of FDG avid multiple myeloma. 2. Focal intense activity interposed at the cortical surface between the coracoid process and glenoid of the left scapula with no associated CT abnormality, unlikely to be related to multiple myeloma. Could confirmthe absence of an osseous abnormality at this location with an MRI. 3. Only very mild nonfocal FDG activity associated with theheterogeneous marrow in the lumbar spine, without evidence of focal multiple myeloma. THIS IS AN ELECTRONICALLY VERIFIED FINAL REPORT 07/18/2019 10:48 AM - Electronically signed by Sina Thomason M.D. CH: Report ID: [id number] Reading Location: [place] [address] REPORT ELECTRONICALLY SIGNED IN OTHER VENDOR SYSTEM Akbar Pittman Jr., MD IMG PET PROCEDURES F inal Result documented in this encounter Visit Diagnoses Not on filedocumented in this encounter Care Teams Chiropractic Practice Manager Relationship Specialty Start Date End Date Yosi Whaley MD [address] [place] [address] PCP - General 07/14/19 02/03/23 Yosi Whaley MD [address] [place] [address] 07/14/19 02/03/23 documented as of this encounter
--- OUTSIDE RECORDS SUMMARY | 2024-06-26 01:37 | XMS_ITS | Encounter Summary ---
Author Organization [facility] Facility Care Team Providers Care Grouter Helper Name Role Phone Yosi Whaley MD Primary Care Provider [phone] Encounter Details Date Type Department Care Team (Latest Contact Info) Description 12/05/2018 Travel Social History Tobacco Use Types Packs/Day [...] on file Legal Sex Female 3:01 AM FINISHER ACCORDION Gender Identity Female 06/07/2020 11:17 AM FINISHER ACCORDION Sexual Orientation Straight 06/07/2020 11 :17 AM FINISHER ACCORDION documented as of this encounter Plan of Treatment Not on file documented as of this encounter Visit Diagnoses Not on filedocumented in this encounter Care Teams Grouter Helper Relationship Specialty Start Date End Date Yosi Whaley MD [address] [place] [address] PCP - General 03/08/13 07/13/19 documented as of this encounter
--- OUTSIDE RECORDS SUMMARY | 2024-06-26 01:37 | XMS_ITS | Encounter Summary ---
Author Organization [facility] Facility Care Team Providers Care Copy Manager Name Role Phone Unavailable Primary Care Provider Unavailabl e Encounter Details Date Type Department Care Team (Late st Contact Info) Description 11/13/2011 - 11/13/2011 11:59 PM CDT Hospital Encounter [facility] Sana Ford Pain in joint, ankle and foot; Osteoarthrosis, ankle and foot; Exostosis; Hallux rigidus; Tenosynovitis of foot and ankle Social History Tobacco Use Types Packs/Day Years Used Date Smoking Tobacco: Never Assessed Comments Unknown Sex and Gender Information Value Date Recorded Sex Assigned at Not on file Legal Sex Female 3:01 AM GAS ENGINE OPERATOR COMPRESSORS Gender Identity Female 06/07/2020 11:17 AM GAS ENGINE OPERATOR COMPRESSORS Sexual Orientation Straight 06/07/2020 11 :17 AM GAS ENGINE OPERATOR COMPRESSORS documented as of this encounter Plan of Treatment Not on file documented as of this encounter Visit Diagnoses Diagnosis Pain in joint, ankle and foot Osteoarthrosis, ankle and foot Osteoarthrosis, unspecified whether generalized or localized, ankle and foot Exostosis Exostosis of unspecified site Hallux rigidus Tenosynovitis of foot and ankle documented in this encounter
--- OUTSIDE RECORDS SUMMARY | 2024-06-26 01:37 | XMS_ITS | Encounter Summary ---
Author Organization [facility] Facility Care Team Providers Care Aircraft Powertrain Repairer Name Role Phone Unavailable Primary Care Provider Unavailabl e Encounter Details Date Type Department Care Team (Late st Contact Info) Description 01/11/2012 10:41 AM CDT - 01/11/2012 4:00 PM T Hospital Encounter [facility] Anila Orozco MD [address] [place] [address] Thoracic or lumbosacral neuritis or radiculitis Social History Tobacco Use Types Packs/Day Years Used Date Smoking Tobacco: Never Assessed Comments Unknown Sex and Gender Information Value Date Recorded Sex Assigned at Not on file Legal Sex Female 3:01 AM RELAY MOTORMAN Gender Identity Female 06/07/2020 11:17 AM RELAY MOTORMAN Sexual Orientation Straight 06/07/2020 11 :17 AM RELAY MOTORMAN documented as of this encounter Plan of Treatment Not on file documented as of this encounter Visit Diagnoses Diagnosis Thoracic or lumbosacral neuritis or radiculitis Thoracic or lumbosacral neuritis or radiculitis, unspecified documented in this encounter
--- OUTSIDE RECORDS SUMMARY | 2024-06-26 01:37 | XMS_ITS | Encounter Summary ---
Author Organization [facility] Address [address] [place] [address] Phone Care Team Providers Care Light Industrial Name Role Phone Yosi Whaley MD Primary Care Provider [phone] Reason for Visit * Reason Comments Consult * Consultation (Routine) - Closed Specialty Diagnoses / Procedures Referred By Contac t Referred To Contact Oncology Diagnoses Multiple myeloma, remission status unspecified (HCC) No, Physician Phone: tel: [facility] [address] [facility] 7th [place] [address] [place] [address] Phone: tel: fax: Referral ID Status Reason Start Date Expiration Date V isits Requested Visits Authorized [id number] Closed Specialty Services Required 08/19/2018 06/20/2024 99 [phone] Encounter Details Date Type Department Care Team (Late st Contact Info) Description 08/29/2018 2:30 PM CDT Office Visit [facility] [address] [facility] [place] [address] [place] [id number] Akbar Pittman Jr., MD [address] [place] [address] Anemia, unspecified type (Primary Dx); Multiple myeloma, remission status unspecified [...] file Legal Sex Female 3:01 AM SERVICE DELIVERY DIRECTOR Gender Identity Female 06/07/2020 11:17 AM SERVICE DELIVERY DIRECTOR Sexual Orientation Straight 06/07/2020 11 :17 AM SERVICE DELIVERY DIRECTOR documented as of this encounter Last Filed Vital Signs Vital Sign Reading Time Taken Comments Blood Pressure 166/88 08/29/2018 2:16 PM CDT Pulse 68 08/29/2018 2:16 PM CDT Temperature 36.7 ??C (98 ??F) 08/29/2018 2:16 PM CDT Respiratory Rate 16 08/29/2018 2:16 PM CDT Oxygen Saturation 97% 08/29/2018 2:16 PM CDT Inhaled Oxygen Concentration - - Weight 94.3 kg (208 lb) 08/29/2018 2:16 PM CDT Height 170.2 cm (5' 7 ) 08/29/2018 2:16 PM CDT Body Mass Index 32.58 08/29/2018 2:16 PM CDT documented in this encounter Progress Notes * Akbar Pittman MD - 08/29/2018 2:30 PM CDT Oncology Medicine Consult Visit Date: 08/29/2018 Reason for Consult: Abnormal MRI. Requesting Provider: Dr. Johnnie Whaley HPI: This is a very delightful 77-year-old white female, who comes in today because she has been having complaints of significant back pain. She underwent radiographs, including an MRI of the spine. The report on the MRI of the spine, showed evidence to suggest marrow conversion. Because of these findings, she comes in today for evaluation. She has a known history of fibromyalgia. And this is her limiting factor, in her ability to carry out her activities of daily living. 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 She underwent bone marrow studies, and no specific abnormalities was found. She denies any problems with any fevers, night sweats, any weight loss. She denies any history of smoking. No history of diabetes. She is overweight. Past Medical History: Diagnosis Date ??? Age-related nuclear cataract Senile nuclear cataract - (Added by TW Conv) ??? Anemia ??? 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 Chronic kidney disease ??? Hypercholesteremia ??? Hypertension ??? 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 Thyroid disease Past Surgical History: Procedure Laterality Date ??? COLONOSCOPY Prior to Admission medications Medication Sig Start Date End Date Taking? Authorizing Provider amLODIPine (NORVASC) 2.5 mg tablet TK 1 T PO QD 08/06/18 Yes Historical Provider, ascorbic acid (ascorbic acid) 500 mg tablet,chewable Yes Historical Provider, aspirin 81 mg tablet Take 81 mg by mouth daily Yes Historical Provider, biotin 10,000 mcg capsule Take by mouth Yes Historical Provider, cetirizine (ALLERGY RELIEF, CETIRIZINE,) 10 mg tablet Take 10 mg by mouth daily Yes Historical Provider, clobetasol (TEMOVATE) 0.05 % ointment Apply topically 2 (two) times a day Yes Historical Provider, docosahexanoic acid/epa (FISH OIL ORAL) Take by mouth Yes Historical Provider, ergocalciferol (VITAMIN D) 50,000 unit capsule TK 1 C PO Q 2 WEEKS UTD 05/27/18 Yes Historical Provider, estradiol (ESTRACE) 0.01 % (0.1 mg/gram) vaginal cream I 1 GRAM VAGINALLY 3 TIMES Q WK 07/31/18 Yes Historical Provider, fluticasone (FLONASE) 50 mcg/actuation nasal spray Yes Historical Provider, glucosam velasquez nud-qgavdipqg-Q-Mn 798-745-29-3 mg capsule Yes Historical Provider, hydroCHLOROthiazide (HYDRODIURIL) 25 mg tablet TK 1 T PO QD 07/12/18 Yes Historical Provider, levothyroxine (SYNTHROID, LEVOTHROID) 50 mcg tablet TK 1 T PO QD 05/27/18 Yes Historical Provider, magnesium oxide 400 mg magnesium tablet Take by mouth Yes Historical Provider, metoprolol XL (TOPROL-XL) 100 mg 24 hr tablet TK 1 T PO D 06/27/18 Yes Historical Provider, metroNIDAZOLE 1 % gel with pump U ONE PUMP BID 06/22/18 Yes Historical Provider, montelukast (SINGULAIR) 10 mg tablet TK 1 T PO D 08/18/18 Yes Historical Provider, MULTIVITAMIN ORAL Take by mouth Yes Historical Provider, naproxen (ANAPROX,ALEVE) 220 mg tablet Take by mouth 2 (two) times a day with meals Yes Historical Provider, niacin 500 mg tablet Take 500 mg by mouth daily with breakfast Yes Historical Provider, omeprazole (PriLOSEC) 20 mg capsule Take 20 mg by mouth daily Yes Historical Provider, propylene glycol (SYSTANE BALANCE) 0.6 % drops Administer into affected eye(s) Yes Historical Provider, quinapril (ACCUPRIL) 20 mg tablet TK 2 TS PO D 07/31/18 Yes Historical Provider, traMADol (ULTRAM) 50 mg tablet TK 1 T PO Q 6 H PRN 08/09/18 Yes Historical Provider, traZODone (DESYREL) 50 mg tablet TK 1 T PO QD HS 08/09/18 Yes Historical Provider, TURMERIC ORAL Take by mouth Yes Historical Provider, vitamin E (AQUASOL E) 400 unit capsule Yes Historical Provider, Allergies Allergen Reactions ??? Adoxa [Doxycycline Monohydrate] [...] (See comments) Sleeps all day ??? Extendryl [Silphuqidcytkshp-Sh-Lgxmuxewrn] Other (See comments) Hard to awaken ??? Seldane Other (See comments) Upset stomach Social history: She is a lifelong nonsmoker. No history of any alcohol abuse. She is . Review of Systems Constitutional: Negative. HENT: Negative. Respiratory: Negative. Cardiovascular: Negative. Gastrointestinal: Negative. Genitourinary: Negative. Musculoskeletal: Positive for arthralgias and back pain. Skin: Negative. Hematological: Negative. Psychiatric/Behavioral: Negative. Pain: Positive for: chronic pain. Vitals BP 166/88 (BP Location: Right arm) Pulse 68 Temp 36.7 ??C (98 ??F) (Oral) Resp 16 Ht 170.2 cm (5' 7 ) Wt 94.3 kg (208 lb) SpO2 97% BMI 32.58 kg/m?? Physical Exam Constitutional: She is oriented to person, place, and time. No distress. Obese. In no signs of acute distress. Eyes: EOM are normal. Neck: Normal range of motion. Neurological: She is alert and oriented to person, place, and time. Skin: Skin is warm. Psychiatric: She has a normal mood and affect. Her behavior is normal. Judgment and thought contentnormal. Lab/Radiology/Diagnostic Review: Results of laboratory and radiographical studies were reviewed. Assessment: This is a 77-year-old white female, who comes in today because she had an MRI carried out, that suggested a marrow conversion. This is a very nonspecific finding, that is noted in MRI studies. This can have no clinical significance. It is sometimes associated with patients that are diabetic, obesity, smokers and related respiratory disorders. It can be seen in hematological abnormalities like anemia, in anemia of chronic infectious disease.Myeloproliferative disorders and dysproteinemia. She did undergo a 24 urine collection, which showed that her immunofixation, showed no abnormal protein present. I spoke with her and her , about the results noted on the MRI, and that the reason that she came in was to have blood work carried out, to rule out the possibility of a dysproteinemia. Arrangements will be made for laboratory testing to be carried out, to rule out the possibility of any hematological process. Questions that they had were answered to their satisfaction, she is agreeable to have her testing performed. Plan: Abnormal marrow conversion, which is a nonspecific finding noted on MRI. At this time, laboratory testing will be carried out to rule out the possibility of a hematological disorder. Thank you very much for allowing me the opportunity to see this very nice lady again. documented in this encounter Plan of Treatment Scheduled Orders Name Type Priority Associated Diagnoses Orde r Schedule CBC with auto differential Lab Routine Multiple myeloma, remission status unspecified (CMS/HCC) Anemia, unspecified type Expected: 08/29/2018, Expires: 08/30/2019 documented as of this encounter Procedures Procedure Name Priority Date/Time Associated Diagnosis Comments KAPPA/LAMBDA LIGHT CHAINS FREE WITH RATIO, SERUM Routine 08/29/2018 3:47 PM CDT Multiple myeloma, remission status unspecified (CMS/HCC) Anemia, unspecified type IMMUNOGLOBULINS Routine 08/29/2018 3:47 PM CDT Multiple myeloma, remission status unspecified (CMS/HCC) Anemia, unspecified type TSH Routine 08/29/2018 3:47 PM CDT Multiple myeloma, remission status unspecified (CMS/HCC) Anemia, unspecified type T4, FREE Routine 08/29/2018 3:47 PM CDT Multiple myeloma, remission status unspecified (CMS/HCC) Anemia, unspecified type PROTEIN ELECTROPHORESIS, WITH REFLEX, SERUM Routine 08/29/2018 3:47 PM CDT Multiple myeloma, remission status unspecified (CMS/HCC) Anemia, unspecified type LACTATE DEHYDROGENASE Routine 08/29/2018 3:47 PM CDT Multiple myeloma, remission status unspecified (CMS/HCC) Anemia, unspecified type COMPREHENSIVE METABOLIC PANEL Routine 08/29/2018 3:47 PM CDT Multiple myeloma, remission status unspecified (CMS/HCC) Anemia, unspecified type documented in this encounter Results * TSH (08/29/2018 3:47 PM CDT) [facility] TSH 1.790 0.450 - 4.500 uIU/mL [facility] - 01 Blood specimen (specimen) 08/29/2018 3:47 PM CDT 08/29/2018 Narrative [facility] - 08/30/2018 8:08 PM CDT Performed at: ??[address] ??[id number] Leather Skinner: Luis Carlos Baldwin PhD, Phone: ??[phone] Akbar Pittman Jr., MD LAB BLOOD ORDERABLES Final Result Performing Organization Address [facility] de Phone Number [facility] - 01 * T4, free (08/29/2018 3:47 PM CDT) [facility] T4,Free(Direct) 1.36 0.82 - 1.77 ng/dL [facility] - 01 Blood specimen (specimen) 08/29/2018 3:47 PM CDT 08/29/2018 Narrative [facility] - 08/30/2018 8:08 PM CDT Performed at: ??01 - [facility] ??[id number] Leather Skinner: Luis Carlos Baldwin PhD, Phone: ??[phone] Akbar Pittman Jr., MD LAB BLOOD ORDERABLES Final Result Performing Organization Address [facility] Co de Phone Number [facility] - 01 * (ABNORMAL) IMMUNOGLOBULINS (08/29/2018 3:47 PM CDT) [facility] Immunoglobulin G, Qn, Serum 386(L) 700 - 1,600 mg/dL [facility] - 01 Immunoglobulin A, Qn, Serum 52(L) 64 - 422 mg/dL [facility] - 01 Immunoglobulin M, Qn, Serum 31 26 - 217 mg/dL [facility] - 01 Blood specimen (specimen) 08/29/2018 3:47 PM CDT 08/29/2018 Narrative [facility] - 08/30/2018 8:08 PM CDT Performed at: ??01 - [facility] ??[id number] Leather Skinner: Luis Carlos Baldwin PhD, Phone: ??[phone] Akbar Pittman Jr., MD LAB BLOOD ORDERABLES Final Result [facility] - * (ABNORMAL) Protein Electrophoresis, With Reflex, Serum (08/29/2018 3:47 PM CDT) Albumin 3.5 2.9 - 4.4 g/dL [facility] - 01 Alpha-1 globulin 0.3 0.0 - 0.4 g/dL [facility] - 01 Alpha-2 globulin 1.2(H) 0.4 - 1.0 g/dL [facility] - 01 Beta Globulin 1.2 0.7 - 1.3 g/dL [facility] - 01 Gamma globulin 0.6 0.4 - 1.8 g/dL [facility] - 01 M-Priyank 0.2(H) Not Observed g/dL [facility] - 01 Globulin 3.3 2.2 - 3.9 g/dL [facility] - 01 Alb/glob ratio 1.1 0.7 - 1.7 [facility] - 01 Please Note: Comment [facility] - 01 Comment: Protein electrophoresis scan will follow via computer, mail, or balloon sander delivery. Blood specimen (specimen) 08/29/2018 3:47 PM CDT 08/29/2018 Narrative [facility] - 08/30/2018 8:08 PM CDT Performed at: ??01 - [facility] [address] ??[id number] Leather Skinner: Luis Carlos Baldwin PhD, Phone: ??[phone] us Akbar Pittman Jr., MD LAB BLOOD ORDERABLES Final Result Performing Organization Address [facility]/ZIP Co de Phone Number [facility] - * (ABNORMAL) Lactate dehydrogenase (LD) (08/29/2018 3:47 PM CDT) Lactate dehydrogenase (LDH) 227(H) 119 - 226 IU/L [facility] - Blood specimen (specimen) 08/29/2018 3:47 PM CDT 08/29/2018 Narrative [facility] - 08/30/2018 8:08 PM CDT Performed at: ?? - [facility] ??[id number] Leather Skinner: Luis Carlos Baldwin PhD, Phone: ??[phone] us Akbar Pittman Jr., MD LAB BLOOD ORDERABLES Final Result Performing Organization Address [facility] de Phone Number [facility] * (ABNORMAL) KAPPA/LAMBDA LIGHT CHAINS FREE WITH RATIO, SERUM (08/29/2018 3:47 PM CDT) Free Terra Bella Lt Chains,S 90.7(H) 3.3 - 19.4 mg/L [facility] - 01 Free Lambda Lt Chains,S 6.6 5.7 - 26.3 mg/L [facility] - 01 Terra Bella/Lambda Ratio,S 13.74(H) 0.26 - 1.65 [facility] - 01 Blood specimen (specimen) 08/29/2018 3:47 PM CDT 08/29/2018 Narrative [facility] - 08/30/2018 8:08 PM CDT Performed at: ?? - [facility] ??[id number] Leather Skinner: Luis Carlos Baldwin PhD, Phone: ??[phone] us Akbar Pittman Jr., MD LAB BLOOD ORDERABLES Final Result Performing Organization Address [facility] Co de Phone Number [facility] * Comprehensive metabolic panel (08/29/2018 3:47 PM CDT) Glucose 95 65 - 99 mg/dL [facility] - 01 BUN 22 8 - 27 mg/dL [facility] - 01 Creatinine, Serum 0.85 0.57 - 1.00 mg/dL [facility] - 01 eGFR If NonAfricn Am 66 >59 mL/min/1.73 [facility] - 01 eGFR If Africn Am 76 >59 mL/min/1.73 [facility] - 01 BUN/creat ratio 26 12 - 28 [facility] - 01 Sodium 142 134 - 144 mmol/L [facility] - 01 Potassium, sr 3.9 3.5 - 5.2 mmol/L [facility] - 01 Chloride 97 96 - 106 mmol/L [facility] - 01 CO2 26 20 - 29 mmol/L [facility] - 01 Calcium 9.6 8.7 - 10.3 mg/dL [facility] - 01 Protein, sr 6.8 6.0 - 8.5 g/dL [facility] - 01 Albumin 4.6 3.5 - 4.8 g/dL [facility] - 01 Globulin, Total 2.2 1.5 - 4.5 g/dL [facility] - 01 A/G Ratio 2.1 1.2 - 2.2 [facility] - 01 Bilirubin, Total 0.2 0.0 - 1.2 mg/dL [facility] - 01 Alk phos 60 39 - 117 IU/L [facility] - 01 AST 14 0 - 40 IU/L [facility] - 01 ALT 19 0 - 32 IU/L [facility] - 01 Blood specimen (specimen) 08/29/2018 3:47 PM CDT 08/29/2018 Narrative [facility] - 08/30/2018 8:08 PM CDT Performed at: ??01 - [facility] [address] ??[id number] Leather Skinner: Luis Carlos Baldiwn PhD, Phone: ??[phone] us Akbar Pittman Jr., MD LAB BLOOD ORDERABLES Final Result [facility] - 01 documented in this encounter Visit Diagnoses Diagnosis Anemia, unspecified type- Primary Multiple myeloma, remission status unspecified (HCC) documented in this encounter Historical Medications * This list may reflect changes made after this encounter. TURMERIC ORAL Take by mouth omeprazole (PriLOSEC) 20 mg capsule Take 1 capsule (20 mg total) by mouth daily MULTIVITAMIN ORAL Take by mouth metoprolol XL (TOPROL-XL) 100 mg 24 hr tablet TK 1 T PO D 3 06/27/2018 montelukast (SINGULAIR) 10 mg tablet TK 1 T PO D 3 08/18/2018 levothyroxine (SYNTHROID, LEVOTHROID) 50 mcg tablet TK 1 T PO QD 3 05/27/2018 hydroCHLOROthiaz angela (HYDRODIURIL) 25 mg tablet TK 1 T PO QD 2 07/12/2018 glucosam velasquez pww-nyhmbdzyv-Q- Mn [id number] mg capsule fluticasone (FLONASE) 50 mcg/actuation nasal spray propylene glycol (SYSTANE BALANCE) 0.6 % drops Administer into affected eye(s) 1 biotin 10,000 mcg capsule Take by mouth 1 magnesium oxide 400 mg magnesium tablet Take by mouth 4 cetirizine (ALLERGY RELIEF, CETIRIZINE,) 10 mg tablet Take 10 mg by mouth daily 1 naproxen (ANAPROX,ALEVE) 220 mg tablet Take by mouth 2 (two) times a day with meals 3 docosahexanoic acid/epa (FISH OIL ORAL) Take by mouth 4 niacin 500 mg tablet Take 500 mg by mouth daily with breakfast 2 aspirin 81 mg tablet Take 1 tablet (81 mg total) by mouth every other day 4 clobetasol (TEMOVATE) 0.05 % ointment Apply topically 2 (two) times a day 3 traMADol ER (ULTRAM-ER) 200 mg 24 hr tablet 3 08/09/2018 0 vitamin E (AQUASOL E) 400 unit capsule 4 traZODone (DESYREL) 50 mg tablet TK 1 T PO QD HS 5 08/09/2018 1 quinapril (ACCUPRIL) 20 mg tablet TK 2 TS PO D 2 07/31/2018 3 metroNIDAZOLE 1 % gel with pump U ONE PUMP BID 1 06/22/201807/05 1 estradiol (ESTRACE) 0.01 % (0.1 mg/gram) vaginal cream I 1 GRAM VAGINALLY 3 TIMES Q WK 3 07/31/2018 1 ascorbic acid (ascorbic acid) 500 mg tablet,chewable 1 amLODIPine (NORVASC) 2.5 mg tablet TK 1 T PO QD 8 08/06/2018 4 ergocalciferol (VITAMIN D) 50,000 unit capsule TK 1 C PO Q 2 WEEKS UTD 3 05/27/2018 3 added in this encounter Orders Outpatient Referral Count Last Ordered Date Fir st Ordered Date AMB REFERRAL TO ONCOLOGY 1 08/29/2018 Appointment Requests Count Last Ordered Date Fi rst Ordered Date [facility] CL[facility]IC APPOINTMENT REQUEST 1 019 [facility] APPOINTMENT 1 08/29/2018 documented in this encounter Care Teams Light Industrial Relationship Specialty Start Date End Date Yosi Whaley MD [address] [place] [address] PCP - General 03/08/13 07/13/19 documented as of this encounter
--- OUTSIDE RECORDS SUMMARY | 2024-06-26 01:37 | XMS_ITS | Encounter Summary ---
Author Organization [facility] Address [address] [place] [address] Phone Care Team Providers Care Blue Print Control Clerk Name Role Phone Yosi Whaley MD Primary Care Provider [phone] Encounter Details Date Type Department Care Team (Late st Contact Info) Description 08/29/2018 Orders Only [facility] Oncology [address] [facility] [place] [address] [place] [phone] Akbar Pittman Jr., MD [address] [place] [address] Social History Tobacco Use Types Packs/Day Years [...] on file Legal Sex Female 3:01 AM TURF GROWER Gender Identity Female 06/07/2020 11:17 AM TURF GROWER Sexual Orientation Straight 06/07/2020 11 :17 AM TURF GROWER documented as of this encounter Plan of Treatment Not on file documented as of this encounter Procedures Procedure Name Priority Date/Time Associated Diagnosis Comments CBC WITH AUTO DIFFERENTIAL Routine 08/29/2018 4:00 PM CDT documented in this encounter Results * (ABNORMAL) CBC with auto differential (08/29/2018 4:00 PM CDT) WBC 7.1 3.4 - 10.8 x10E3/uL [facility] - 01 RBC 4.22 3.77 - 5.28 x10E6/uL [facility] - 01 Hgb 13.0 11.1 - 15.9 g/dL [facility] - 01 Hct 39.0 34.0 - 46.6 % [facility] - 01 MCV 92 79 - 97 fL [facility] - 01 MCH 30.8 26.6 - 33.0 pg [facility] - 01 MCHC 33.3 31.5 - 35.7 g/dL [facility] - 01 Rdw 15.6(H) 12.3 - 15.4 % [facility] - 01 Platelets 255 150 - 379 x10E3/uL [facility] - 01 Neutrophils pct 57 Not Estab. % [facility] - 01 Lymphs pct 34 Not Estab. % [facility] - 01 Monocytes pct 8 Not Estab. % [facility] - 01 Eosinophils pct 1 Not Estab. % [facility] - 01 Basophil pct 0 Not Estab. % [facility] - 01 Neutrophil abs 4.0 1.4 - 7.0 x10E3/uL [facility] - 01 Lymphs (Absolute) 2.4 0.7 - 3.1 x10E3/uL [facility] - 01 Monocyte abs 0.6 0.1 - 0.9 x10E3/uL [facility] - 01 Eosinophils, abs 0.1 0.0 - 0.4 x10E3/uL [facility] - 01 Basophils, abs 0.0 0.0 - 0.2 x10E3/uL [facility] - 01 08/29/2018 4:00 PM CDT 08/29/2018 Narrative [facility] - 08/29/2018 5:06 PM CDT Performed at: ??01 - [facility] [address] [place], [place] [id number] Flight Manager: Juvencio Shaw MD, Phone: ??[phone] us Akbar Pittman Jr., MD LAB BLOOD ORDERABLES Final Result [facility] - 01 documented in this encounter Visit Diagnoses Not on filedocumented in this encounter Care Teams Blue Print Control Clerk Relationship Specialty Start Date End Date Yosi Whaley MD [address] [place] [address] PCP - General 03/08/13 07/13/19 documented as of this encounter
--- OUTSIDE RECORDS SUMMARY | 2024-06-26 01:37 | XMS_ITS | Encounter Summary ---
Author Organization [facility] Address [address] [place] [address] Phone Care Team Providers Care Help Desk Rep Name Role Phone Yosi Whaley MD Primary Care Provider [phone] Encounter Details Date Type Department Care Team (Late st Contact Info) Description 06/19/2019 Telephone [facility] Oncology [address] [place] [address] [place] [phone] Jennifer Ceja, RN Social History Tobacco Use [...] on file Legal Sex Female 3:01 AM PROFESSIONAL NURSING TUTOR Gender Identity Female 06/07/2020 11:17 AM PROFESSIONAL NURSING TUTOR Sexual Orientation Straight 06/07/2020 11 :17 AM PROFESSIONAL NURSING TUTOR documented as of this encounter Miscellaneous Notes * Telephone Encounter - Iraida Christianson MA - 06/26/2019 8:40 AM CST Patient called to report that she was seen at ER and was given pain medication and an injection; was told it was arthritis. Pain has not subsided. Patient advised to follow up and discuss with PCP. Pt verbalized understanding. ESSIONAL NURSING TUTOR * Telephone Encounter - Jennifer Ceja RN - 06/19/2019 8:57 AM CST Ms Elise called to report back pain. She states the pain started last week and resting pain is at an 8 on the pain scale and brings her to tears at its worst. She has Tramadol but it does not relieve pain. Encouraged PCP or ER. Advised that the ER will be able to do imaging immediately and also get her something for pain. She v/u and thanked me for calling back. She will go to ER at [place]. ESSIONAL NURSING TUTOR ESSIONAL NURSING TUTOR documented in this encounter Plan of Treatment Not on file documented as of this encounter Visit Diagnoses Not on filedocumented in this encounter Care Teams Help Desk Rep Relationship Specialty Start Date End Date Yosi Whaley MD [address] [place] [address] PCP - General 03/08/13 07/13/19 documented as of this encounter
--- OUTSIDE RECORDS SUMMARY | 2024-06-26 01:37 | XMS_ITS | Encounter Summary ---
Author Organization [facility] Address [address] [place] [address] Phone Care Team Providers Care Neon Glass Blower Name Role Phone Yosi Whaley MD Primary Care Provider [phone] Yosi Whaley MD Primary Care Provider [phone] Yosi Whaley MD Unavailable Reason for Visit * Reason Comments Follow-up * Consultation (Routine) - Closed Specialty Diagnoses / Procedures Referred By Contac t Referred To Contact Oncology Diagnoses Multiple myeloma, remission status unspecified (HCC) No, Physician Phone: tel: [facility] [address] [place] [address] Phone: tel: fax: Referral ID Status Reason Start Date Expiration Date V isits Requested Visits Authorized [id number] Closed Specialty Services Required 08/19/2018 06/20/2024 99 99 Encounter Details Date Type Department Care Team (Late st Contact Info) Description 09/05/2018 9:15 AM CDT Office Visit 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 Gender Identity Female 06/07/2020 11:17 AM SPECIAL EDUCATION SCIENCE TEACHER Sexual Orientation Straight 06/07/2020 11 :17 AM SPECIAL EDUCATION SCIENCE TEACHER documented as of this encounter Last Filed Vital Signs Vital Sign Reading Time Taken Comments Blood Pressure 148/75 09/05/2018 9:10 AM CDT Pulse 66 09/05/2018 9:10 AM CDT Temperature 36.7 ??C (98.1 ??F) 09/05/2018 9:10 AM CD T Respiratory Rate 12 09/05/2018 9:10 AM CDT Oxygen Saturation 95% 09/05/2018 9:10 AM CDT Inhaled Oxygen Concentration - - Weight 94.3 kg (208 lb) 09/05/2018 9:10 AM CDT Height 170.2 cm (5' 7 ) 09/05/2018 9:10 AM CDT Body Mass Index 32.58 09/05/2018 9:10 AM CDT documented in this encounter Progress Notes * Akbar Pittman MD - 09/05/2018 9:15 AM CDT Patient ID: Sloane Elise is a 77 y.o. female, comes in today for results of testing. Primary Care Provider: Yosi Whaley MD Assessment/Plan 1. 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 Laboratory testing carried out failed to show any evidence of a suspected hematological process. Routine follow-up is planned in 3 months. HPI September 05, 2017, she comes in today for results of laboratory testing carried out August 29. A CBC showed a white cell count of 7.1 with a normal differential, hemoglobin was 13 g, and a platelet countof 149624. A complete metabolic profile was unremarkable. LDH [...] diabetes. She is overweight. Review of Systems - Oncology unchanged from last week. Physical Exam: Vital Signs for this encounter: BSA: 2.11 meters squared BP 148/75 (BP Location: Right arm) Pulse 66 Temp 36.7 ??C (98.1 ??F) (Oral) Resp 12 Ht 170.2 cm (5' 7 ) Wt 94.3 kg (208 lb) SpO2 95% BMI 32.58 kg/m?? Physical Exam Constitutional: She is oriented to person, place, and time. No distress. Eyes: EOM are normal. Neck: Normal range of motion. Neurological: She is alert and oriented to person, place, and time. Skin: Skin is warm. Psychiatric: She has a normal mood and affect. Her behavior is normal. Judgment and thought contentnormal. Performance Status: Symptomatic; fully ambulatory Results: WBC Date Value Ref Range Status 08/29/2018 7.1 3.4 - 10.8 x10E3/uL Final Hgb Date Value Ref Range Status 08/29/2018 13.0 11.1 - 15.9 g/dL Final Hct Date Value Ref Range Status 08/29/2018 39.0 34.0 - 46.6 % Final Platelets Date Value Ref Range Status 08/29/2018 255 150 - 379 x10E3/uL Final Lactate dehydrogenase (LDH) Date Value Ref Range Status 08/29/2018 227 (H) 119 - 226 IU/L Final Creatinine, Serum Date Value Ref Range Status 08/29/2018 0.85 0.57 - 1.00 mg/dL Final AST Date Value Ref Range Status 08/29/2018 14 0 - 40 IU/L Final documented in this encounter Miscellaneous Notes * Addendum Note - Grant Brar - 09/05/2018 9:15 AM CDTAddended by: GRANT BRAR on: 09/06/2019 11:45 AM Modules accepted: Orders * Addendum Note - Grant Brar - 09/05/2018 9:15 AM CDTAddended by: GRANT BRAR on: 09/06/2019 11:46 AM Modules accepted: Orders documented in this encounter Plan of Treatment Scheduled Orders Name Type Priority Associated Diagnoses Orde r Schedule Beta 2 microglobulin, serum Lab Routine Multiple myeloma not having achieved remission (CMS/HCC) Expected: 11/28/2018, Expires: 09/06/2019 CBC with auto differential Lab Routine Multiple myeloma not having achieved remission (CMS/HCC) Expected: 11/28/2018, Expires: 09/06/2019 IMMUNOGLOBULINS Lab Routine Multiple myeloma not having achieved remission (CMS/HCC) Expected: 11/28/2018, Expires: 09/06/2019 KAPPA/LAMBDA LIGHT CHAINS FREE WITH RATIO, SERUM Lab Routine Multiple myeloma not having achieved remission (CMS/HCC) Expected: 11/28/2018, Expires: 09/06/2019 Comprehensive metabolic panel Lab Routine Multiple myeloma not having achieved remission (CMS/HCC) Expected: 11/28/2018, Expires: 09/06/2019 documented as of this encounter Procedures Procedure Name Priority Date/Time Associated Diagnosis Comments LACTATE DEHYDROGENASE Routine 09/11/2019 10:22 AM CDT Multiple myeloma not having achieved remission (CMS/HCC) documented in this encounter Results * Lactate dehydrogenase (LD) (09/11/2019 10:22 AM CDT) Lactate Dehydrogenase 235 100 - 250 U/L [facility] Blood specimen (specimen) 09/11/2019 10:22 AM CDT 09/11/2019 10:28 AM CDT Narrative Resulting Agency Comment RCR us Akbar Pittman Jr., MD LAB BLOOD ORDERABLES Final Result [facility] [address] [place], [place] [id number] documented in this encounter Visit Diagnoses Diagnosis Multiple myeloma, remission status unspecified (HCC) Anemia, unspecified type documented in this encounter Orders Appointment Requests Count Last Ordered Date Fi rst Ordered Date ONCBCN CLINIC APPOINTMENT REQUEST 2 019 09/05/2018 documented in this encounter Care Teams Neon Glass Blower Relationship Specialty Start Date End Date Yosi Whaley MD [address] [place] [address] PCP - General 03/08/13 07/13/19 Yosi Whaley MD [address] [place] [address] PCP - General 07/14/19 02/03/23 Yosi Whaley MD [address] [place] [address] 07/14/19 02/03/23 documented as of this encounter
--- OUTSIDE RECORDS SUMMARY | 2024-06-26 01:37 | XMS_ITS | Encounter Summary ---
Author Organization [facility] Facility Care Team Providers Care Halftone Operator Name Role Phone Unavailable Primary Care Provider Unavailabl e Encounter Details Date Type Department Care Team (Late st Contact Info) Description 04/14/2012 - 04/14/2012 11:59 PM CDT Hospital Encounter [facility] Re Schrader MD [address] [place] [address] Pain in soft tissues of limb; Localized osteoarthrosis, ankle and foot; Calcium deposits in tendon and bursa Social History Tobacco Use Types Packs/Day Years Used Date Smoking Tobacco: Never Assessed Comments Unknown Sex and Gender Information Value Date Recorded Sex Assigned at Not on file Legal Sex Female 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
--- OUTSIDE RECORDS SUMMARY | 2024-06-26 01:37 | XMS_ITS | Encounter Summary ---
Author Organization [facility] Address [address] [place] [address] Care Team Providers Care Records And Tape Recordings Engineer Name Role Phone Yosi Whaley MD Primary Care Provider [phone] Reason for Visit * Diagnostic Imaging (Routine) - Closed Specialty Diagnoses / Procedures Referred By Contac t Referred To Contact Cardiology Imaging Diagnoses Left arm pain Procedures NM MPI SPECT (Rest and/or Stress) Multiple Studies Yosi Whaley MD Phone: tel: fax: [facility] Medical [facility] Cardiology [address] [place] [phone] Phone: tel: fax: Referral ID Status Reason Start Date Expiration Date Visits Re quested Visits Authorized [id number] Closed 03/27/2019 04/25/2019 1 1 Encounter Details Date Type Department Care Team (Late st Contact Info) Description 03/28/2019 11:45 AM CDT Ancillary Procedure [facility] Cardiology [address] [place] [phone] Left arm pain Social History Tobacco Use Types Packs/Day Years [...] on file Legal Sex Female 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 Gender Identity Female 06/07/2020 11:17 AM EDUCATION TECHNICIAN Sexual Orientation Straight 06/07/2020 11 :17 AM EDUCATION TECHNICIAN documented as of this encounter Plan of Treatment Not on file documented as of this encounter Procedures Procedure Name Priority Date/Time Associated Diagnosis Comments NM MPI SPECT (REST AND/OR STRESS) MULTIPLE STUDIES Schedule Routine, Read Routine (OP Routine) 03/28/2019 1:14 PM CDT Left arm pain documented in this encounter Results * NM MPI SPECT (Rest and/or Stress) Multiple Studies (03/28/2019 1:14 PM CDT) Anatomical Region Laterality Modality Body N/A Nuclear Medicine 03/28/2019 9:01 AM CDT Narrative 03/29/2019 6:53 AM CDT [facility] [address] [address] [address], [place] [address] P:[phone] P:[phone] MPI Imaging Report Patient Name: RIGOBERTO ELISE R : 1940 Study Date: 03/28/2019 9:01:12 AM Gender: F Tech: [facility] Location: [facility] Ref.Physician: Yosi WHALEY Height(Cm): 170.2 BSA: Weight(Kg): 96.9 BMI: 33.45Order Physician: Yosi WHALEY Physician: Referring Physician: Dr. Whaley. HCG Physician: none. Interpreting Physician: Chester Norman M.D. Stress Supervision: Wanda Akers M.D., F.A.C.C. Procedures: Myocardial perfusion imaging with Tc99M Sestamibi SPECT at rest and stress post regadenoson (Lexiscan) infusion. Indications: Hypertension, High Cholesterol, and Left Arm Pain. Findings: Procedural Findings: One day rest/stress was used. Tc99m Sestamibi injected IV at rest was 12.2 millicuries. 36.3 millicuries of Tc99M Sestamibi injected IV during Lexiscan stress. Lexiscan 0.4mg administered IV over 10 seconds. Patient had no symptoms during stress test. Baseline heart rate was 71 BPM. Maximum Heart Rate Achieved was: 100 BPM. Baseline blood pressure was 160/80 mmHg. Post Stress Blood Pressure was 136/78 mmHg. Termination: Protocol complete. Resting ECG: Normal sinus rhythm. Post ECG: No diagnostic ST changes. Arrhythmia: Occasional PVCs. Perfusion Findings: Normal perfusion imaging. No definite fixed or reversible defects. Technical quality of study is excellent. Prone imaging was not performed. Left ventricle cavity size at rest is normal. Left ventricle cavity size with stress is unchanged. A TID of 0.88 was automatically calculated. LV Function: Global left ventricular function is normal. Left ventricular ejection fraction is 74 %. Conclusions: Negative EKG portion of stress test. Global left ventricular function is normal. Left ventricular ejection fraction is 74 %. Myocardial perfusion imaging is normal. Electronically Signed By: Wanda Akers MD, [facility] 2019-03-28 20:49:49 CDT Electronically Signed By: Austen Norman MD 2019-03-29 06:53:38 CDT CC: CC: Procedure Note Austen Norman MD - 03/29/2019 [facility] [address] [address], [place] [address] P:[phone] P:[phone] MPI Imaging Report Patient Name: RIGOBERTO ELISE RPatiecoleen ID: [id number] : [id number] Date: 03/28/2019 9:01:12 AM Gender: FAccession #: [id number] [facility] Ref.Physician: Laurie WHALEY(Cm): 170.2 BSA: Weight(Kg): 96.9 BMI: 33.45Order Physician: Yosi WHALEY Physician: Referring Physician: Dr. Whaley. HCG Physician: none. Interpreting Physician: Chester Norman M.D. Stress Supervision: Wanda Akers M.D., F.A.C.C. Procedures: Myocardial perfusion imaging with Tc99M Sestamibi SPECT at rest and stresspost regadenoson (Lexiscan) infusion. Indications: Hypertension, High Cholesterol, and Left Arm Pain. Findings: Procedural Findings: One day rest/stress was used. Tc99m Sestamibi injected IV at rest was 12.2millicuries. 36.3 millicuries of Tc99M Sestamibi injected IV during Lexiscan stress.Lexiscan 0.4mg administered IV over 10 seconds. Patient had no symptoms during stresstest. Baseline heart rate was 71 BPM. Maximum Heart Rate Achieved was: 100 BPM. Baselineblood pressure was 160/80 mmHg. Post Stress Blood Pressure was 136/78 mmHg. Termination: Protocol complete. Resting ECG: Normal sinus rhythm. Post ECG: No diagnostic ST changes. Arrhythmia: Occasional PVCs. Perfusion Findings: Normal perfusion imaging. No definite fixed or reversible defects.Technical quality of study is excellent. Prone imaging was not performed. Left ventricle cavitysize at rest is normal. Left ventricle cavity size with stress is unchanged. A TID of0.88 was automatically calculated. LV Function: Global left ventricular function is normal. Left ventricular ejectionfraction is 74 %. Conclusions: Negative EKG portion of stress test. Global left ventricular function is normal. Left ventricular ejectionfraction is 74 %. Myocardial perfusion imaging is normal. Electronically Signed By: Wanda Akers MD, [facility] 2019-03-28 20:49:49 CDT Electronically Signed By: Austen Norman MD 2019-03-29 06:53:38 CDT CC: CC: [facility] Johnnie Whaley MD [employer] PROCEDURES Final Result documented in this encounter Visit Diagnoses Diagnosis Left arm pain Pain in soft tissues of limb documented in this encounter Administered Medications Inactive Administered Medications - up to 3 most recent administrations Medication Order MAR Action Action Date Dose Rate Site regadenoson (LEXISCAN) 0.4 mg/5 mL injection 0.4 mg 0.4 mg, intravenous, Once, On Wed03/28/19 at 1345, For 1 dose, Administer IV push over 10 seconds., Indications: Myocardial Perfusion Imaging AdjunctIndications:Myocard ial Perfusion Imaging Adjunct Given 03/28/2019 1:14 PM CDT 0.4 mg tc-99m sestamibi unit dose injection 12.2 millicurie 12.2 millicurie, intravenous, Once in imaging, radiopharmaceutical, Starting on Wed03/28/19 at 0818, For 1 dose, Indications: Diagnostic RadiographyIndications:Skylar gnostic Radiography Given 03/28/2019 8:18 AM CDT 12.2 millicuries tc-99m sestamibi unit dose injection 36.3 millicurie 36.3 millicurie, intravenous, Once in imaging, radiopharmaceutical, Starting on Wed03/28/19 at 1314, For 1 dose, Indications: Diagnostic RadiographyIndications:Skylar gnostic Radiography Given 03/28/2019 1:14 PM CDT 36.3 millicuries documented in this encounter Care Teams Records And Tape Recordings Engineer Relationship Specialty Start Date End Date Yosi Whaley MD [address] [place] [address] PCP - General 03/08/13 07/13/19 documented as of this encounter
--- OUTSIDE RECORDS SUMMARY | 2024-06-26 01:37 | XMS_ITS | Encounter Summary ---
Author Organization [place] [facility] Address [address] [place] [address] Phone Care Team Providers Care Flight Operations Manager Name Role Phone Yosi Whaley MD Primary Care Provider [phone] Reason for Visit * Reason Comments Follow-up * Consultation (Routine) - Closed Specialty Diagnoses / Procedures Referred By Sharlene t Referred To Contact Oncology Diagnoses Multiple myeloma, remission status unspecified (HCC) No, Physician Phone: tel: [facility] [address] 7[address] [place] [address] [place] [address] Phone: tel: fax: Referral ID Status Reason Start Date Expiration Date V isits Requested Visits Authorized [id number] Closed Specialty Services Required 08/19/2018 06/20/2024 99 99 Encounter Details Date Type Department Care Team (Late st Contact Info) Description 03/06/2019 11:00 AM CDT Office Visit [facility] [address] [place] [address] [place] [id number] Akbar Pittman Jr., MD [facility] [place] [address] Multiple myeloma not having achieved remission (CMS/HCC) [...] on file Legal Sex Female 3:01 AM SAUSAGE MEAT TRIMMER Gender Identity Female 06/07/2020 11:17 AM SAUSAGE MEAT TRIMMER Sexual Orientation Straight 06/07/2020 11 :17 AM SAUSAGE MEAT TRIMMER documented as of this encounter Last Filed Vital Signs Vital Sign Reading Time Taken Comments Blood Pressure 170/89 03/06/2019 11:09 AM CDT rn notified Pulse 67 03/06/2019 11:09 AM CDT Temperature 36.6 ??C (97.8 ??F) 03/06/2019 1 1:09 AM CDT Respiratory Rate 16 03/06/2019 11:0 9 AM CDT Oxygen Saturation 95% 03/06/2019 11: 09 AM CDT Inhaled Oxygen Concentration - - Weight 96.9 kg (213 lb 9.6 oz) 03/06/20 19 11:09 AM CDT Height 170.2 cm (5' 7.01 ) 03/06/2019 1 1:09 AM CDT Body Mass Index 33.45 03/06/2019 11:09 AM CDT documented in this encounter Progress Notes * Akbar Pittman Jr., MD - 03/06/2019 11:00 AM CDT Patient ID: Sloane Elise is a 78 y.o. female, comes in today for results of testing. Primary Care Provider: Yosi Whaley MD Assessment/Plan 1. 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 2. Monoclonal gammopathy of unknown significance. Routine follow-up is planned in 3 months. HPI March 06 2019, comes in today for routine follow-up. She underwent laboratory testing on February 27, 2019. Hemoglobin is 12.1 g, white cell count was 4.9, platelet count was [id number]. Metabolic profile was unremarkable. IgG was 350, [...] was 13 g, and a platelet countof [id number]. A complete metabolic profile was unremarkable. LDH [...] Exam: Vital Signs for this encounter: BSA: 2.14 meters squared BP 170/89 (BP Location: Left arm) Comment: rn notified Pulse 67 Temp 36.6 ??C (97.8 ??F) (Oral) Resp 16 Ht 170.2 cm (5' 7.01 ) Wt 96.9 kg (213 lb 9.6 oz) SpO2 95% BMI 33.45 kg/m?? Physical Exam Constitutional: She is oriented to person, place, and time. No distress. Eyes: EOM are normal. Neck: Normal range of motion. Neurological: She is alert and oriented to person, place, and time. Skin: Skin is warm. Psychiatric: She has a normal mood and affect. Her behavior is normal. Judgment and thought contentnormal. Performance Status: Asymptomatic documented in this encounter Plan of Treatment Not on file documented as of this encounter Procedures Procedure Name Priority Date/Time Associated Diagnosis Comments KAPPA/LAMBDA LIGHT CHAINS FREE WITH RATIO, SERUM Routine 05/29/2019 10:14 AM SAUSAGE MEAT TRIMMER Multiple myeloma not having achieved remission (CMS/HCC) IMMUNOGLOBULIN M Routine 05/29/2019 10:1 4 AM SAUSAGE MEAT TRIMMER Multiple myeloma not having achieved remission (CMS/HCC) CBC WITH AUTO DIFFERENTIAL Routine 05/29/2019 10:14 AM SAUSAGE MEAT TRIMMER Multiple myeloma not having achieved remission (CMS/HCC) IGA Routine 05/29/2019 10:14 AM SAUSAGE MEAT TRIMMER Multiple myeloma not having achieved remission (CMS/HCC) IGG Routine 05/29/2019 10:14 AM SAUSAGE MEAT TRIMMER Multiple myeloma not having achieved remission (CMS/HCC) BETA 2 MICROGLOBULIN SERUM Routine 05/29/2019 10:14 AM SAUSAGE MEAT TRIMMER Multiple myeloma not having achieved remission (CMS/HCC) COMPREHENSIVE METABOLIC PANEL Routine 05/29/2019 10:14 AM SAUSAGE MEAT TRIMMER Multiple myeloma not having achieved remission (CMS/HCC) documented in this encounter Results * (ABNORMAL) IMMUNOGLOBULIN M (05/29/2019 10:14 AM SAUSAGE MEAT TRIMMER) Immunoglobulin M 24(L) 50 - 300 mg/dL [facility] - [place] Blood specimen (specimen) 05/29/2019 10:14 AM SAUSAGE MEAT TRIMMER 05/29/2019 10:20 AM SAUSAGE MEAT TRIMMER Narrative Resulting Agency Comment Performing Organization Information: ?Site ID: [place] ?Name: [facility] ?Address: [address] [place], [place] [address]ner [facility] [place] [address] ?Director: Galileo Odom D.O., MPH Akbar Pittman Jr., MD LAB BLOOD ORDERABLES Final Result Performing Organization Address [facility] Co de Phone Number [facility] [place] * (ABNORMAL) IgA (05/29/2019 10:14 AM SAUSAGE MEAT TRIMMER) Pathologist [facility] Immunoglobulin A 56(L) 70 - 320 mg/dL [facility] [place] Blood specimen (specimen) 05/29/2019 10:14 AM SAUSAGE MEAT TRIMMER 05/29/2019 10:20 AM SAUSAGE MEAT TRIMMER Narrative Resulting Agency Comment Performing Organization Information: ?Site ID: [place] ?Name: [facility] ?Address: [address] [place] [address] [place] [address] ?Director: Galileo Odom D.O. MPH Akbar Pittman Jr., MD LAB BLOOD ORDERABLES Final Result Performing Organization Address [facility] Co de Phone Number [facility] - [place], [place] * (ABNORMAL) IgG (05/29/2019 10:14 AM SAUSAGE MEAT TRIMMER) Immunoglobulin G 337(L) 600 - 1,540 mg/dL [facility] - [place] Blood specimen (specimen) 05/29/2019 10:14 AM SAUSAGE MEAT TRIMMER 05/29/2019 10:20 AM SAUSAGE MEAT TRIMMER Narrative Resulting Agency Comment Performing Organization Information: ?Site ID: [id number] ?Name: [facility]ok ?Address: [facility] [place] [address] ?Director: Galileo Odom D.O. MPH Akbar Pittman Jr., MD LAB BLOOD ORDERABLES Final Result Performing Organization Address [facility] Co de Phone Number [facility] [place] * (ABNORMAL) Beta 2 microglobulin, serum (05/29/2019 10:14 AM SAUSAGE MEAT TRIMMER) Beta 2 Microglobulin, Serum 2.85(H) < OR = 2.51 mg/L [facility] [place] Blood specimen (specimen) 05/29/2019 10:14 AM SAUSAGE MEAT TRIMMER 05/29/2019 10:20 AM SAUSAGE MEAT TRIMMER Narrative Resulting Agency Comment Performing Organization Information: ?Site ID: [place] ?Name: [facility] Kwok ?Address: [facility] [place] [address] ?Director: Galileo Odom D.O., MPH Akbar Pittman Jr., MD LAB BLOOD ORDERABLES Final Result Performing Organization Address [facility] Co de Phone Number [facility] [place] [employer] * (ABNORMAL) KAPPA/LAMBDA LIGHT CHAINS FREE WITH RATIO, SERUM (05/29/2019 10:14 AM SAUSAGE MEAT TRIMMER) [place] light chain, free 121.8(H) 3.3 - 19.4 mg/L [facility] [place] Lambda light chain, free 6.6 5.7 - 26.3 mg/L [facility] [place]/Lambda light chains free with ratio 18.45(H) 0.26 - 1.65 [facility] [place] Comment: Free kappa/lambda ratio in serum of [...] therapy of these disorders. Blood specimen (specimen) 05/29/2019 10:14 AM SAUSAGE MEAT TRIMMER 05/29/2019 10:20 AM SAUSAGE MEAT TRIMMER Narrative Resulting Agency Comment Performing Organization Information: ?Site ID: [place] ?Name: [facility] ?Address: [address] [place] [address] ?Director: Galileo Odom D.O., DARWIN Akbar Pittman Jr., MD LAB BLOOD ORDERABLES Final Result [facility] [place] * (ABNORMAL) CBC with auto differential (05/29/2019 10:14 AM SAUSAGE MEAT TRIMMER) WBC 4.6 3.8 - 10.8 Thousand/ uL [facility] [place] RBC, POC 3.86 3.80 - 5.10 Million/u L [facility] [place] Hgb 11.8 11.7 - 15.5 g/dL [facility] [place] Hct 35.6 35.0 - 45.0 % [facility] [place] MCV 92.2 80.0 - 100.0 fL [facility] [place] MCH 30.6 27.0 - 33.0 pg [facility] [place] MCHC 33.1 32.0 - 36.0 g/dL [facility] [place] Rdw 15.5(H) 11.0 - 15.0 % [facility] [place] Platelets 253 140 - 400 Thousand/ uL [facility] [place] MPV 10.4 7.5 - 12.5 fL [facility] [place] Neutrophils, abs 2,208 1,500 - 7,800 cells/uL [facility] [place] Neutrophil bands, abs CANCELED 0 - 750 cells/uL [facility] [place] Comment:Result canceled by [place]. Metamyelocytes, abs CANCELED 0 cells/uL [facility] [place] Comment:Result canceled by t he ancillary. Myelocytes, abs CANCELED 0 cells/uL [facility] [place] Comment:Result canceled by t he ancillary. Promyelocytes, abs CANCELED 0 cells/uL [facility] [place] Comment:Result canceled by t he ancillary. Lymphocytes, abs 1,895 850 - 3,900 cells/uL [facility] [place] Monocyte abs 359 200 - 950 cells/uL [facility] [place] Eosinophils, abs 120 15 - 500 cells/uL [facility] [place] Basophils, abs 18 0 - 200 cells/uL [facility] [place] Blast, cell CANCELED 0 cells/uL [facility] [place] Comment:Result canceled by t he ancillary. NRBC abs CANCELED 0 cells/uL [facility] [place] Comment:Result canceled by t he ancillary. Neutrophils 48 % [facility] [place] Neutrophilic bands CANCELED % [facility] [place] Comment:Result canceled by t he ancillary. Metamyelocyte pct CANCELED % [facility] [place] Comment:Result canceled by t he ancillary. Myelocyte pct CANCELED % [facility] [place] Comment:Result canceled by t he ancillary. Promyelocyte pct CANCELED % [facility] [place] Comment:Result canceled by t he ancillary. Lymphocyte pct 41.2 % [facility] [place] Reactive lymph CANCELED 0 - 10 % [facility] [place] Comment:Result canceled by t he ancillary. Monocytes 7.8 % [facility] [place] Eosinophils 2.6 % [facility] [place] Basophils 0.4 % [facility] [place] Blast pct CANCELED % [facility] [place] Comment:Result canceled by t he ancillary. NRBC CANCELED 0 /100 WBC [facility] [place] Comment:Result canceled by t he ancillary. Comment CANCELED [facility] [place] Comment:Result canceled by t he ancillary. Blood specimen (specimen) 05/29/2019 10:14 AM SAUSAGE MEAT TRIMMER 05/29/2019 10:20 AM SAUSAGE MEAT TRIMMER Narrative Resulting Agency Comment Performing Organization Information: ?Site ID: [place] ?Name: [facility] ?Address: [address] [place], [place] [address] [address] ?Director: Galileo Odom D.O., MPH us Akbar Pittman Jr., MD LAB BLOOD ORDERABLES Final Result [facility] [place] * (ABNORMAL) Comprehensive metabolic panel (05/29/2019 10:14 AM SAUSAGE MEAT TRIMMER) Glucose 132(H) 65 - 99 mg/dL [facility] [place] Comment: ? Fasting reference interval For someone without known diabetes, a glucose value >125 mg/dL indicates that they may have diabetes and this should be confirmed with a follow-up test. BUN 18 7 - 25 mg/dL [facility] [place] Creatinine 0.91 0.60 - 0.93 mg/dL [facility] [place] Comment: For patients >49 years of age, the reference limit for Creatinine is approximately 13% higher for people identified as -[place]. eGFR NON-AFR. [place] 60 > OR = 60 mL/min/1 .73m2 [facility] [place] EGFR 70 > OR = 60 mL/min/1 .73m2 [facility] [place] BUN/creat ratio NOT APPLICABLE 6 - 22 (calc) [facility] [place] Sodium 141 135 - 146 mmol/L [facility] [place] Potassium, pl 4.1 3.5 - 5.3 mmol/L [facility] [place] Chloride 100 98 - 110 mmol/L [facility] [place] CO2 32 20 - 32 mmol/L [facility] [place] Calcium 9.2 8.6 - 10.4 mg/dL [facility] [place] Protein, sr 6.4 6.1 - 8.1 g/dL [facility] [place] Albumin 4.4 3.6 - 5.1 g/dL [facility] [place] GLOBULIN 2.0 1.9 - 3.7 g/dL (calc) [facility] [place] Alb/glob ratio 2.2 1.0 - 2.5 (calc) [facility] [place] Bilirubin, total 0.4 0.2 - 1.2 mg/dL [facility] [place] Alk phos 63 33 - 130 U/L [facility] [place] AST 18 10 - 35 U/L [facility] [place] ALT (SGPT) 20 6 - 29 U/L [facility] [place] Blood specimen (specimen) 05/29/2019 10:14 AM SAUSAGE MEAT TRIMMER 05/29/2019 10:20 AM SAUSAGE MEAT TRIMMER Narrative Resulting Agency Comment Performing Organization Information: ?Site ID: ALEJANDRA ?Name: [facility] ?Address: [address] [place] [address] ?Director: Galileo Odom D.O., MPH us Akbar Pittman Jr., MD LAB BLOOD ORDERABLES Final Result [facility] [place] documented in this encounter Visit Diagnoses Diagnosis Multiple myeloma not having achieved remission (CMS/HCC) (HCC)- Primary documented in this encounter Historical Medications * This list may reflect changes made after this encounter. ezetimibe (ZETIA) 10 mg tablet TK 1 T PO QD 3 02/27/2019 polyethylene glycol-electrolyt es (NULYTELY) 420 gram solution MIX AND DRINK UTD 0 02/28/2019 06/07/2020 added in this encounter Orders Appointment Requests Count Last Ordered Date Fi rst Ordered Date ONCBCN CLINIC APPOINTMENT REQUEST 2 020 03/06/2019 documented in this encounter Care Teams Flight Operations Manager Relationship Specialty Start Date End Date Yosi Whaley MD [address] [place] [address] PCP - General 03/08/13 07/13/19 documented as of this encounter
--- OUTSIDE RECORDS SUMMARY | 2024-06-26 01:37 | XMS_ITS | Encounter Summary ---
Author Organization [facility] Facility Care Team Providers Care Colorer Machine Name Role Phone Unavailable Primary Care Provider Unavailabl e Encounter Details Date Type Department Care Team (Latest Contact Info) Description 11/04/2011 - 11/04/2011 11:59 PM CDT Hospital Encounter [facility] Betsy Campos DO [address] [place] [address] Low back pain; Disturbance of skin sensation; Degeneration of lumbar or lumbosacral intervertebral disc Social History Tobacco Use Types Packs/Day Years Used Date Smoking Tobacco: Never Assessed Comments Unknown Sex and Gender Information Value Date Recorded Sex Assigned at Not on file Legal Sex Female 3:01 AM BEAD BUILDER Gender Identity Female 06/07/2020 11:17 AM BEAD BUILDER Sexual Orientation Straight 06/07/2020 11 :17 AM BEAD BUILDER documented as of this encounter Plan of Treatment Not on file documented as of this encounter Visit Diagnoses Diagnosis Low back pain Lumbago Disturbance of skin sensation Degeneration of lumbar or lumbosacral intervertebral disc documented in this encounter
--- OUTSIDE RECORDS SUMMARY | 2024-06-26 01:37 | XMS_ITS | Encounter Summary ---
Author Organization [facility] Facility Care Team Providers Care Reconciling Clerk Name Role Phone Unavailable Primary Care Provider Unavailabl e Encounter Details Date Type Department Care Team (Latest Contact Info) Description 10/22/2011 - 10/22/2011 11:59 PM CDT [facility] [address] [place] [address] Localized osteoarthrosis, ankle and foot; Other enthesopathy of ankle and tarsus; Synovitis and tenosynovitis; Corns and callosity Social History Tobacco Use Types Packs/Day Years Used Date Smoking Tobacco: Never Assessed Comments Unknown Sex and Gender Information Value Date Recorded Sex Assigned at Not on file Legal Sex Female 3:01 AM EDITOR Gender Identity Female 06/07/2020 11:17 AM EDITOR Sexual Orientation Straight 06/07/2020 11 :17 AM EDITOR documented as of this encounter Plan of Treatment Not on file documented as of this encounter Visit Diagnoses Diagnosis Localized osteoarthrosis, ankle and foot Localized osteoarthrosis not specified whether primary or secondary, ankle and foot Other enthesopathy of ankle and tarsus Synovitis and tenosynovitis Unspecified synovitis and tenosynovitis Corns and callosity Corns and callosities documented in this encounter
--- OUTSIDE RECORDS SUMMARY | 2024-06-26 01:37 | XMS_ITS | Encounter Summary ---
Author Organization [facility] Address [address] [place] [address] Phone Care Team Providers Care Salesperson Shoes Name Role Phone Yosi Whaley MD Primary Care Provider [phone] Reason for Visit * Reason Comments Follow-up Multiple Myeloma * Consultation (Routine) - Closed Specialty Diagnoses / Procedures Referred By Sharlene t Referred To Contact Oncology Diagnoses Multiple myeloma, remission status unspecified (HCC) No, Physician Phone: tel: [facility] Oncology [address] 7[address] [place] [address] [place] [address] Phone: tel: fax: Referral ID Status Reason Start Date Expiration Date V isits Requested Visits Authorized [id number] Closed Specialty Services Required 08/19/2018 06/20/2024 99 99 Encounter Details Date Type Department Care Team (Late st Contact Info) Description 12/05/2018 10:15 AM CDT Office Visit [facility] Physicians [facility] Oncology [address] [place] [address] [place] [id number] Akbar Pittman Jr., MD [address] [place] [address] Multiple myeloma not having achieved remission (CMS/HCC) [...] on file Legal Sex Female 3:01 AM ENVIRONMENTAL HEALTH NURSE Gender Identity Female 06/07/2020 11:17 AM ENVIRONMENTAL HEALTH NURSE Sexual Orientation Straight 06/07/2020 11 :17 AM ENVIRONMENTAL HEALTH NURSE documented as of this encounter Last Filed Vital Signs Vital Sign Reading Time Taken Comments Blood Pressure 167/82 12/05/2018 10:07 AM CDT Pulse 69 12/05/2018 10:07 AM CDT Temperature 36.7 ??C (98 ??F) 12/05/2018 10:07 AM CDT Respiratory Rate 12 12/05/2018 10:07 AM CDT Oxygen Saturation 97% 12/05/2018 10:07 AM CDT Inhaled Oxygen Concentration - - Weight 94.9 kg (209 lb 3.2 oz) 12/05/2018 10:07 AM CDT Height 170.2 cm (5' 7 ) 12/05/2018 10:07 AM CDT Body Mass Index 32.77 12/05/2018 10:07 AM CDT documented in this encounter Progress Notes * Akbar Pittman Jr., MD - 12/05/2018 10:15 AM CDT Patient ID: Sloane Elise is a 77 y.o. female, comes in today for results of testing. Primary Care Provider: Yosi Whaley MD Assessment/Plan 1. 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 2. Monoclonal gammopathy of unknown significance. Routine follow-up is planned in 3 months. HPI December 05, 2018, she comes in today [...] was 13 g, and a platelet countof [id number]. A complete metabolic profile was unremarkable. LDH [...] Exam: Vital Signs for this encounter: BSA: 2.12 meters squared BP 167/82 (BP Location: Right arm) Pulse 69 Temp 36.7 ??C (98 ??F) (Oral) Resp 12 Ht 170.2 cm (5' 7 ) Wt 94.9 kg (209 lb 3.2 oz) SpO2 97% BMI 32.77 kg/m?? Physical Exam Constitutional: She is oriented to person, place, and time. No distress. Eyes: EOM are normal. Neck: Normal range of motion. Neurological: She is alert and oriented to person, place, and time. Skin: Skin is warm. Psychiatric: She has a normal mood and affect. Her behavior is normal. Judgment and thought contentnormal. Performance Status: Symptomatic; fully ambulatory documented in this encounter Plan of Treatment Not on file documented as of this encounter Procedures Procedure Name Priority Date/Time Associated Diagnosis Comments KAPPA/LAMBDA LIGHT CHAINS FREE WITH RATIO, SERUM Routine 02/27/2019 9:42 AM CDT Multiple myeloma not having achieved remission (CMS/HCC) IMMUNOGLOBULIN M Routine 02/27/2019 9:42 AM CDT Multiple myeloma not having achieved remission (CMS/HCC) CBC WITH AUTO DIFFERENTIAL Routine 02/27/2019 9:42 AM CDT Multiple myeloma not having achieved remission (CMS/HCC) IGA Routine 02/27/2019 9:42 AM CDT Multiple myeloma not having achieved remission (CMS/HCC) IGG Routine 02/27/2019 9:42 AM CDT Multiple myeloma not having achieved remission (CMS/HCC) BETA 2 MICROGLOBULIN SERUM Routine 02/27/2019 9:42 AM CDT Multiple myeloma not having achieved remission (CMS/HCC) COMPREHENSIVE METABOLIC PANEL Routine 02/27/2019 9:42 AM CDT Multiple myeloma not having achieved remission (CMS/HCC) documented in this encounter Results * IgA (02/27/2019 9:42 AM CDT) Immunoglobulin A 56 20 - 320 mg/dL [facility] [place] Blood specimen (specimen) 02/27/2019 9:42 AM CDT 02/27/2019 9:44 AM CDT Narrative Resulting Agency Comment Performing Organization Information: ?Site ID: [place] ?Name: Lexi Kwok ?Address: [facility] [place] [address] ?Director: Galileo Odom D.O., MPH us Akbar Pittman Jr., MD LAB BLOOD ORDERABLES Final Result Performing Organization Address City/[facility]/ZIP Co de Phone Number [place] * (ABNORMAL) IgG (02/27/2019 9:42 AM CDT) Immunoglobulin G 350(L) 600 - 1,540 mg/dL [facility] Blood specimen (specimen) 02/27/2019 9:42 AM CDT 02/27/2019 9:44 AM CDT Narrative Resulting Agency Comment Performing Organization Information: ?Site ID: [place] ?Name: Lexi Kwok ?Address: [facility] [place] [address] ?Director: Galileo Odom D.O., MPH us Akbar Pittman Jr., MD LAB BLOOD ORDERABLES Final Result Performing Organization Address [facility] Co de Phone Number [place] * (ABNORMAL) IMMUNOGLOBULIN M (02/27/2019 9:42 AM CDT) Immunoglobulin M 25(L) 50 - 300 mg/dL [facility] Blood specimen (specimen) 02/27/2019 9:42 AM CDT 02/27/2019 9:44 AM CDT Narrative Resulting Agency Comment Performing Organization Information: ?Site ID: [place] ?Name: Lexi Kwok ?Address: [facility] [place] [address] ?Director: Galileo Odom D.O. MPH us Akbar Pittman Jr., MD LAB BLOOD ORDERABLES Final Result Performing Organization Address [facility]/ZIP Co de Phone Number [facility] [place] * (ABNORMAL) Beta 2 microglobulin, serum (02/27/2019 9:42 AM CDT) Beta 2 Microglobulin, Serum 2.95(H) < OR = 2.51 mg/L [facility] [place] Blood specimen (specimen) 02/27/2019 9:42 AM CDT 02/27/2019 9:44 AM CDT Narrative Resulting Agency Comment Performing Organization Information: ?Site ID: [place] ?Name: [email or web address] ?Address: [facility] [place] [address] ?Director: Galileo Odom D.O., MPH Akbar Pittman Jr., MD LAB BLOOD ORDERABLES Final Result Performing Organization Address [facility] de Phone Number [facility] [place] * (ABNORMAL) KAPPA/LAMBDA LIGHT CHAINS FREE WITH RATIO, SERUM (02/27/2019 9:42 AM CDT) [place] light chain, free 138.3(H) 3.3 - 19.4 mg/L [facility] [place] Lambda light chain, free 7.8 5.7 - 26.3 mg/L [facility] [place]/Lambda light chains free with ratio 17.73(H) 0.26 - 1.65 [facility] [place] [...] therapy of these disorders. Blood specimen (specimen) 02/27/2019 9:42 AM CDT 02/27/2019 9:44 AM CDT Narrative Resulting Agency Comment Performing Organization Information: ?Site ID: [place] ?Name: [email or web address] ?Address: [address] [place] [address] ?Director: Galileo Odom D.O., MPH us Akbar Pittman Jr., MD LAB BLOOD ORDERABLES Final Result [facility] [place] * (ABNORMAL) Comprehensive metabolic panel (02/27/2019 9:42 AM CDT) Glucose 104(H) 65 - 99 mg/dL [facility] [place] Comment: ? Fasting reference interval For someone without known diabetes, a glucose value between 100 and 125 mg/dL is consistent with prediabetes and should be confirmed with a follow-up test. BUN 20 7 - 25 mg/dL [facility] [place] Creatinine 0.90 0.60 - 0.93 mg/dL [facility] [place] Comment: For patients >49 years of age, the reference limit for Creatinine is approximately 13% higher for people identified as -Turkish. eGFR NON-AFR. SOUTH KOREAN 61 > OR = 60 mL/min/1 .73m2 [facility] [place] EGFR 71 > OR = 60 mL/min/1 .73m2 [facility] [place] BUN/creat ratio NOT APPLICABLE 6 - 22 (calc) [facility] [place] Sodium 138 135 - 146 mmol/L [facility] [place] Potassium, pl 3.9 3.5 - 5.3 mmol/L [facility] [place] Chloride 98 98 - 110 mmol/L [facility] [place] CO2 28 20 - 32 mmol/L [facility] [place] Calcium 9.4 8.6 - 10.4 mg/dL [facility] [place] Protein, sr 6.4 6.1 - 8.1 g/dL [facility] [place] Albumin 4.5 3.6 - 5.1 g/dL [facility] [place] GLOBULIN 1.9 1.9 - 3.7 g/dL (calc) [facility] [place] Alb/glob ratio 2.4 1.0 - 2.5 (calc) [facility] [place] Bilirubin, total 0.3 0.2 - 1.2 mg/dL [facility] [place] Alk phos 54 33 - 130 U/L [facility] [place] AST 17 10 - 35 U/L [facility] [place] ALT (SGPT) 19 6 - 29 U/L [facility] [place] Blood specimen (specimen) 02/27/2019 9:42 AM CDT 02/27/2019 9:44 AM CDT Narrative Resulting Agency Comment Performing Organization Information: ?Site ID: [place] ?Name: [facility] ?Address: [address] [place], [place] [address] [address] ?Director: Galileo Odom D.O., MPH us Akbar Pittman Jr., MD LAB BLOOD ORDERABLES Final Result [facility] [place] * (ABNORMAL) CBC with auto differential (02/27/2019 9:42 AM CDT) WBC 4.9 3.8 - 10.8 Thousand/ uL [facility] [place] RBC, POC 3.99 3.80 - 5.10 Million/u L [facility] [place] Hgb 12.1 11.7 - 15.5 g/dL [facility] [place] Hct 37.6 35.0 - 45.0 % [facility] [place] MCV 94.2 80.0 - 100.0 fL [facility] [place] MCH 30.3 27.0 - 33.0 pg [facility] [place] MCHC 32.2 32.0 - 36.0 g/dL [facility] [place] Rdw 15.2(H) 11.0 - 15.0 % [facility] [place] Platelets 267 140 - 400 Thousand/ uL [facility] [place] MPV 10.1 7.5 - 12.5 fL [facility] [place] Neutrophils, abs 2,494 1,500 - 7,800 cells/uL [facility] [place] Neutrophil bands, abs CANCELED 0 - 750 cells/uL [facility] [place] Comment:Result canceled by t he ancillary. Metamyelocytes, abs CANCELED 0 cells/uL [facility] [place] Comment:Result canceled by t he ancillary. Myelocytes, abs CANCELED 0 cells/uL [facility] [place] Comment:Result canceled by t he ancillary. Promyelocytes, abs CANCELED 0 cells/uL [facility] [place] Comment:Result canceled by t he ancillary. Lymphocytes, abs 1,754 850 - 3,900 cells/uL [facility] [place] Monocyte abs 470 200 - 950 cells/uL [facility] [place] Eosinophils, abs 162 15 - 500 cells/uL [facility] [place] Basophils, abs 20 0 - 200 cells/uL [facility] [place] Blast, cell CANCELED 0 cells/uL [facility] [place] Comment:Result canceled by t he ancillary. NRBC abs CANCELED 0 cells/uL [facility] [place] Comment:Result canceled by t he ancillary. Neutrophils 50.9 % [facility] [place] Neutrophilic bands [...] canceled by t he ancillary. Lymphocyte pct 35.8 % [facility] [place] Reactive lymph CANCELED 0 - 10 % [facility] [place] Comment:Result canceled by t he ancillary. Monocytes 9.6 % [facility] [place] Eosinophils 3.3 % [facility] [place] Basophils 0.4 % [facility] [place] Blast pct CANCELED % [facility] [place] Comment:Result canceled by t he ancillary. NRBC CANCELED 0 /100 WBC [facility] [place] Comment:Result canceled by t he ancillary. Comment CANCELED [facility] [place] Comment:Result canceled by t he ancillary. Blood specimen (specimen) 02/27/2019 9:42 AM CDT 02/27/2019 9:44 AM CDT Narrative Resulting Agency Comment Performing Organization Information: ?Site ID: [place] ?Name: [email or web address] ?Address: [address] [place] [address] ?Director: Galileo Odom D.O., MPH Akbar Pittman Jr., MD LAB BLOOD ORDERABLES Final Result [facility] [place] documented in this encounter Visit Diagnoses Diagnosis Multiple myeloma not having achieved remission (CMS/HCC) (HCC)- Primary documented in this encounter Historical Medications * This list may reflect changes made after this encounter. fexofenadine HCl (ASHLEY ALLERGY ORAL) Take by mouth 07/05/2020 added in this encounter Orders Appointment Requests Count Last Ordered Date Fi rst Ordered Date ONCBCN CLINIC APPOINTMENT REQUEST 2 019 12/05/2018 documented in this encounter Care Teams Salesperson Shoes Relationship Specialty Start Date End Date Yosi Whaley MD [address] [place] [address] PCP - General 03/08/13 07/13/19 documented as of this encounter
--- OUTSIDE RECORDS SUMMARY | 2024-06-26 01:37 | XMS_ITS | Encounter Summary ---
Author Organization [facility] Address [address] [place] [address] Phone Care Team Providers Care Quality Assurance Inspector Name Role Phone Yosi Whaley MD Primary Care Provider [phone] Reason for Visit * Reason Comments Follow-up * Oncology (Routine) - Closed Specialty Diagnoses / Procedures Referred By Sharlene uriarte Referred To Contact Medical Oncology / Oncology Diagnoses Multiple myeloma not having achieved remission (CMS/HCC) (HCC) Procedures ONCBCN CLINIC APPOINTMENT REQUEST RETURN Akbar Pittman Jr., MD [address] [place] [address] [place] [address] Phone: tel: fax: Akbar Pittman Jr., MD [address] [place] [address] [place] [address] Phone: tel: fax: Referral ID Status Reason Start Date Expiration Date V isits Requested Visits Authorized [id number] Closed Specialty Services Required 07/10/2019 06/20/2020 99 99 Encounter Details Date Type Department Care Team (Late st Contact Info) Description 07/10/2019 9:45 AM BEHAVIORAL HEALTH ASSISTANT Office Visit [facility] Oncology [address] [place] [phone] Akbar Pittman Jr., MD [address] [place] [address] [place] [address] Multiple myeloma not having achieved remission (CMS/HCC) [...] on file Legal Sex Female 3:01 AM BEHAVIORAL HEALTH ASSISTANT Gender Identity Female 06/07/2020 11:17 AM BEHAVIORAL HEALTH ASSISTANT Sexual Orientation Straight 06/07/2020 11 :17 AM BEHAVIORAL HEALTH ASSISTANT documented as of this encounter Last Filed Vital Signs Vital Sign Reading Time Taken Comments Blood Pressure 189/85 07/10/2019 9:46 AM BEHAVIORAL HEALTH ASSISTANT rn notified Pulse 80 07/10/2019 9:46 AM BEHAVIORAL HEALTH ASSISTANT Temperature 36.6 ??C (97.9 ??F) 07/10/2019 9 :46 AM BEHAVIORAL HEALTH ASSISTANT Respiratory Rate 16 07/10/2019 9:46 AM BEHAVIORAL HEALTH ASSISTANT Oxygen Saturation 98% 07/10/2019 9:4 6 AM BEHAVIORAL HEALTH ASSISTANT Inhaled Oxygen Concentration - - Weight 93.3 kg (205 lb 9.6 oz) 07/10/19 9:46 AM BEHAVIORAL HEALTH ASSISTANT Height 170.2 cm (5' 7.01 ) 07/10/2019 9 :46 AM BEHAVIORAL HEALTH ASSISTANT Body Mass Index 32.19 07/10/2019 9:46 AM BEHAVIORAL HEALTH ASSISTANT documented in this encounter Progress Notes * Akbar Pittman Jr., MD - 07/10/2019 9:45 AM CST Patient ID: Sloane Elise is a 78 y.o. female, comes in today for results of testing. Primary Care Provider: Yosi Whaley MD Assessment/Plan 1. 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 2. Monoclonal gammopathy of unknown significance. PET scan to be carried out for worsening bone pain. Further recommendations to follow. HPI July 10, 2019 , she comes in [...] cell count was 4.9, platelet count was [id number]. Metabolic profile was unremarkable. IgG was 350, [...] was 13 g, and a platelet countof [id number]. A complete metabolic profile was unremarkable. LDH [...] Exam: Vital Signs for this encounter: BSA: 2.1 meters squared BP (!) 189/85 (BP Location: Right arm) Comment: rn notified Pulse 80 Temp 36.6 ??C (97.9 ??F) (Oral) Resp 16 Ht 170.2 cm (5' 7.01 ) Wt 93.3 kg (205 lb 9.6 oz) SpO2 98% BMI 32.19 kg/m?? Physical Exam Constitutional: General: She is not in acute distress. Neck: Musculoskeletal: Normal range of motion. Skin: General: Skin is warm. Neurological: Mental Status: She is alert and oriented to person, place, and time. Psychiatric: Behavior: Behavior normal. Thought Content: Thought content normal. Judgment: Judgment normal. Performance Status: Symptomatic; fully ambulatory VIORAL HEALTH ASSISTANT documented in this encounter Plan of Treatment Not on file documented as of this encounter Visit Diagnoses Diagnosis Multiple myeloma not having achieved remission (CMS/HCC) (HCC)- Primary documented in this encounter Orders Appointment Requests Count Last Ordered Date Fi rst Ordered Date ONCBCN CLINIC APPOINTMENT REQUEST 1 020 documented in this encounter Care Teams Quality Assurance Inspector Relationship Specialty Start Date End Date Yosi Whaley MD [address] [place] [address] PCP - General 03/08/13 07/13/19 documented as of this encounter
--- OUTSIDE RECORDS SUMMARY | 2024-06-26 01:37 | XMS_ITS | Encounter Summary ---
Author Organization [facility] Address [address] [place] [address] Phone Care Team Providers Care Clinical Cytogeneticist Name Role Phone Yosi Whaley MD Primary Care Provider [phone] Encounter Details Date Type Department Care Team (Latest Contact Info) Description 03/03/2019 Orders Only [facility] Scanning, Provider Social History Tobacco Use Types Packs/Day Years Used Date Smoking Tobacco: Never Assessed AUDIT-C Answer Date Recorded Frequency of Alcohol Consumption Never 08/29/2018 Average Number of Drinks Not on file 019 Frequency of Binge Drinking Not on file 08/19 Comments Unknown Sex and Gender Information Value Date Recorded Sex Assigned at Not on file Legal Sex Female 3:01 AM BELT WORKER Gender Identity Female 06/07/2020 11:17 AM BELT WORKER Sexual Orientation Straight 06/07/2020 11 :17 AM BELT WORKER documented as of this encounter Plan of Treatment Not on file documented as of this encounter Procedures Procedure Name Priority Date/Time Associated Diagnosis Comments SCAN - LABS 03/03/2019 11:46 AM CDT documented in this encounter Results * SCAN - LABS (03/03/2019 11:46 AM CDT) us Provider Scanning Final Result documented in this encounter Visit Diagnoses Not on filedocumented in this encounter Care Teams Clinical Cytogeneticist Relationship Specialty Start Date End Date Yosi Whaley MD [address] [place] [address] PCP - General 03/08/13 07/13/19 documented as of this encounter
--- OUTSIDE RECORDS SUMMARY | 2024-06-26 01:37 | XMS_ITS | Encounter Summary ---
Author Organization [facility] Facility Care Team Providers Care Bonded Structures Repairer Name Role Phone Unavailable Primary Care Provider Unavailabl e Encounter Details Date Type Department Care Team (Late st Contact Info) Description 12/03/2011 2:26 PM CDT - 12/03/2011 4:[address] [facility] CL[facility]CONBetsy Linares DO [address], [place] [address] Thoracic or lumbosacral neuritis or radiculitis; Lumbosacral spondylosis without myelopathy Social History Tobacco Use Types Packs/Day Years Used Date Smoking Tobacco: Never Assessed Comments Unknown Sex and Gender Information Value Date Recorded Sex Assigned at Not on file Legal Sex Female 3:01 AM STEEPLECHASE JOCKEY Gender Identity Female 06/07/2020 11:17 AM STEEPLECHASE JOCKEY Sexual Orientation Straight 06/07/2020 11 :17 AM STEEPLECHASE JOCKEY documented as of this encounter Plan of Treatment Not on file documented as of this encounter Visit Diagnoses Diagnosis Thoracic or lumbosacral neuritis or radiculitis Thoracic or lumbosacral neuritis or radiculitis, unspecified Lumbosacral spondylosis without myelopathy documented in this encounter
--- OUTSIDE RECORDS SUMMARY | 2024-06-26 01:37 | XMS_ITS | Encounter Summary ---
Author Organization [facility] Facility Care Team Providers Care Airway Traffic Controller Name Role Phone Yosi Whaley MD Primary Care Provider [phone] Encounter Details Date Type Department Care Team (Latest Contact Info) Description 03/06/2019 Travel Social History Tobacco Use Types Packs/Day [...] on file Legal Sex Female 3:01 AM UPPER TRIMMER Gender Identity Female 06/07/2020 11:17 AM UPPER TRIMMER Sexual Orientation Straight 06/07/2020 11 :17 AM UPPER TRIMMER documented as of this encounter Plan of Treatment Not on file documented as of this encounter Visit Diagnoses Not on filedocumented in this encounter Care Teams Airway Traffic Controller Relationship Specialty Start Date End Date Yosi Whaley MD [address] [place] [address] PCP - General 03/08/13 07/13/19 documented as of this encounter
--- OUTSIDE RECORDS SUMMARY | 2024-06-26 01:37 | XMS_ITS | Encounter Summary ---
Author Organization [facility] Facility Care Team Providers Care Pastrycook'S Assistant Name Role Phone Yosi Whaley MD Primary Care Provider [phone] Encounter Details Date Type Department Care Team (Latest Contact Info) Description 07/10/2019 Travel Social History Tobacco Use Types Packs/Day [...] file Legal Sex Female 3:01 AM ELECTRIC REFRIGERATOR SERVICER Gender Identity Female 06/07/2020 11:17 AM ELECTRIC REFRIGERATOR SERVICER Sexual Orientation Straight 06/07/2020 11 :17 AM ELECTRIC REFRIGERATOR SERVICER documented as of this encounter Plan of Treatment Not on file documented as of this encounter Visit Diagnoses Not on filedocumented in this encounter Care Teams Pastrycook'S Assistant Relationship Specialty Start Date End Date Yosi Whaley MD [address] [place] [address] PCP - General 03/08/13 07/13/19 documented as of this encounter
--- OUTSIDE RECORDS SUMMARY | 2024-06-26 01:37 | XMS_ITS | Encounter Summary ---
Author Organization [facility] [place] [facility] Address [address] [place] [address] Phone Care Team Providers Care Thread Roller Name Role Phone Yosi Whaley MD Primary Care Provider [phone] Encounter Details Date Type Department Care Team (Late st Contact Info) Description 08/29/2018 3:30 PM CDT Lab [facility] Oncology [address] [place] [id number] Multiple myeloma, remission status unspecified (CMS/HCC); Anemia, [...] file Legal Sex Female 3:01 AM DIRECTOR COMMUNITY CENTER Gender Identity Female 06/07/2020 11:17 AM DIRECTOR COMMUNITY CENTER Sexual Orientation Straight 06/07/2020 11 :17 AM DIRECTOR COMMUNITY CENTER documented as of this encounter Plan of Treatment Not on file documented as of this encounter Visit Diagnoses Diagnosis Multiple myeloma, remission status unspecified (HCC) Anemia, unspecified type documented in this encounter Orders Appointment Requests Count Last Ordered Date Fi rst Ordered Date ONCBCN LAB APPOINTMENT 1 08/29/2018 documented in this encounter Care Teams Thread Roller Relationship Specialty Start Date End Date Yosi Whaley MD [address] [place] [place] [address] PCP - General 03/08/13 07/13/19 documented as of this encounter
== END 2024-06-19 10:00 | disposition home or self-care (01) ==
PROVIDERS: PCP Emergency Medicine; Visit Provider Surgery
PROC: (CPT 36589; principal; 2024-06-19 07:30)
PROC: (CPT 36561; 2024-06-19 07:30)
DX: T82.524A Displacement of infusion catheter, initial encounter (principal); C90.00 Multiple myeloma not having achieved remission; Y83.8 Other surgical procedures as the cause of abnormal reaction of the patient, or of later complication, without mention of misadventure at the time of the procedure; E78.5 Hyperlipidemia, unspecified; I10 Essential (primary) hypertension; I27.20 Pulmonary hypertension, unspecified; G47.33 Obstructive sleep apnea (adult) (pediatric); M35.3 Polymyalgia rheumatica; G89.29 Other chronic pain; G47.00 Insomnia, unspecified; E66.9 Obesity, unspecified; Z68.33 Body mass index [BMI] 33.0-33.9, adult; Z79.82 Long term (current) use of aspirin; Z79.84 Long term (current) use of oral hypoglycemic drugs; Z79.891 Long term (current) use of opiate analgesic; Z98.890 Other specified postprocedural states; Z95.828 Presence of other vascular implants and grafts; Z82.49 Family history of ischemic heart disease and other diseases of the circulatory system
CPT/HCPCS: 36561; 36590; 77001; 82948; C1788; J0690; J1644; J1885; J2003; J2004; J2704; J3010; J7030; J7120

== ENCOUNTER 2024-06-21 19:38 | Inpatient (IN) | payer OTHER, SELFPAY ==
[2024-06-21] VITALS (18 sets, daily range): BP systolic 120–150; BP diastolic 53–71; PULSE 89–98; RESP 13–20; TEMP 37.1–39.1; O2SAT 90–98
--- NOTE | ~2024-06-21 | XR_ITS ---
Supine and upright views of the abdomen Clinical history: Small bowel obstruction Findings: Bowel gas pattern is nonspecific. No evidence for obstruction or free air. No abnormal mass lesion or calcification is seen. There is degenerative change of the lower lumbar spine.. Impression: Nonspecific bowel gas pattern. Reviewed, dictated and finalized at [facility]. 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
--- NOTE | ~2024-06-21 | XR_ITS ---
XR chest 1V portable Ordering provider: Dian Cutler APRN History: 83 years Female with . SOB . Comparison: June 21, 2024 FINDINGS: MEDIASTINUM: The cardiac silhouette is slightly enlarged. Right Port-A-Cath with the tip overlying superior vena cava. Slightly congestive ella. LUNGS: No effusions or pneumothorax. Opacification in the left lung base suggestive of atelectasis ve rsus pneumonia. OTHER: No free air under the diaphragm. Degenerative changes of the spine. IMPRESSION: Left basilar atelectasis versus pneumonia. Reviewed, dictated and finalized at location A. HANDISING LEAD
--- NOTE | ~2024-06-21 | CT_ITS ---
EXAMINATION: CT chest abdomen pelvis w con DATE: 06/21/2024 20:49 INDICATION: Sepsis, unknown source . TECHNIQUE: Computed tomography (CT) of the chest, abdomen, and pelvis was performed with 100 mL Omnip aque-350 intravenous contrast. Automated exposure control and iterative reconstruction technique were employed. The dose-length product was 1648.93 mGy-cm. COMPARISON: CT abdomen pelvis 09/26/2020; PET/CT 01/27/2024 FINDINGS: CHEST: Thoracic aorta: No significant dilation. No dissection. Lung parenchyma and airways: Subsegmental scar and atelectasis in the lingula and left lower lobe. Bi lateral dependent atelectasis. Scattered pulmonary nodules measuring up to 6 mm in the right lower lo be likely representing granulomas. Thoracic inlet, axillae and chest wall: No thyroid or soft tissue mass. No axillary lymphadenopathy. Mediastinum: No mass or lymphadenopathy. Heart and pericardium: Mild cardiomegaly. No pericardial effusion. Coronary artery calcifications: Mild. Pleura: No effusion or mass. Thoracic bones: No acute osseous finding in the chest. ABDOMEN/PELVIS: Liver: 2.7 cm right lobe hemangioma. 12 mm left lobe cyst.. Biliary/Gallbladder: Gallbladder is normal. No bile duct dilation. Pancreas: Multiple pancreatic cysts measuring up to 1.2 cm. Spleen: Normal. Adrenals:No mass. Kidneys: No suspicious mass, obstructing stone, or hydronephrosis. Moderate left renal atrophy. Subce ntimeter right lower pole hypodensity, too small to characterize but likely represents a cyst. GI tract: Mild distal esophageal and gastric wall edema. Mild focal dilation of a loop of jejunum in the mid abdomen, without obstructing mass. No large bowel dilation Appendix is not confidently visual ized. Mesentery/Peritoneum: No ascites, mass, or free air. Retroperitoneum: No mass Pelvis: Mostly empty urinary bladder. Absent uterus. Normal bilateral ovaries. Soft Tissues: Soft tissues and body wall unremarkable. Abdominopelvic bones: Grade 1 anterolisthesis at L3-4. Severe L3-4 disc height loss and vacuum pheno leidy, with adjacent erosive changes and endplate sclerosis. Severe central canal narrowing at the L3 -4 level. Severe bilateral L5-S1 neural foraminal narrowing secondary to degenerative changes. IMPRESSION: Mild esophagitis/gastritis. Mild dilation of a loop of jejunum in the mid abdomen, presumably secondary to focal ileus. Early obs truction not excluded. Multiple pancreatic cysts measuring up to 1.2 cm, demonstrating interval growth since 08/10/2020 exami [facility]. Consider follow-up with contrast enhanced MRI or pancreas protocol CT in one year, depending on the patient's overall health and preferences and if a surgical candidate. Severe disc space narrowing at L3-4 with erosive changes, may be secondary to osteomyelitis/discitis, neuropathic changes, or inflammatory arthropathy. Consider MR lumbar spine without and with contrast . Reviewed, dictated and finalized at [facility] K. CTIVE AUTOMOBILE SECTION IMPRESSION: Mild esophagitis/gastritis. Mild dilation of a loop of jejunum in the mid abdomen, presumably secondary to focal ileus. Early obstruction not excluded. Multiple pancreatic cysts measuring up to 1.2 cm, demonstrating interval growth since 08/10/2020 examination. Consider follow-up with contrast enhanced MRI or pancreas protocol CT in one year, depending on the patient's overall health and preferences and if a surgical candidate. Severe disc space narrowing at L3-4 with erosive changes, may be secondary to o steomyelitis/discitis, neuropathic changes, or inflammatory arthropathy. Consid er MR lumbar spine without and with contrast.
--- NOTE | ~2024-06-21 | CT_ITS ---
EXAMINATION: CT brain wo con DATE: 06/21/2024 20:49 INDICATION: AMS . TECHNIQUE: Computed tomography (CT) of the head was performed without intravenous contrast. The mA wa s adjusted according to patient size. Iterative reconstruction technique was employed. The dose-lengt h product was 605.33 mGy-cm. COMPARISON: 07/23/2023. FINDINGS: No acute intracranial hemorrhage or extra-axial fluid collection. No hydrocephalus, mass, or herniation. No acute ischemic infarct. Unremarkable dural venous sinus attenuation. No acute osseous abnormality. Ethmoid mucosal thickening, the remaining aerated spaces are clear. Mild atrophy and chronic white matter change. Atherosclerotic intracranial calcification. Bilateral l ens replacements. IMPRESSION: No acute intracranial process. Reviewed, dictated and finalized at location K. IOLOGY RN
--- NOTE | ~2024-06-21 | MR_ITS ---
EXAMINATION: MR lumbar spine wo/w con DATE: 06/22/2024 13:33 INDICATION: Discitis versus osteomyelitis TECHNIQUE: Magnetic resonance imaging (MRI) of the lumbar spine was performed without and with 15 mL Multihance intravenous contrast. Sequences included sagittal T2-weighted FSE, sagittal T2-weighted FS FSE, and sagittal and axial T1-weighted FSE. Postcontrast sequences included axial T2-weighted FSE, sagittal T1-weighted FSE, and axial and sagittal T1-weighted FS FSE. COMPARISON: CT dated 06/21/2024 and MRI dated 07/27/2022 FINDINGS: Minimal lumbar levocurvature. 3 mm anterolisthesis L3 on L4 and 3 mm retrolisthesis L5 on S1. Again s een is severe disc height loss with associated right-sided predominant degenerative endplate changes at L3-L4 with low signal intensity sclerotic Modic type III degenerative endplate changes. There is m inimal likely reactive T2 hyperintense and enhancing degenerative endplate signal at L3-L4 with no in creased signal or enhancement of the disc to suggest discitis or abnormal loss of adjacent T1 marrow signal to suggest osteomyelitis. This results in mild right-sided vertebral body height loss at both levels. Remaining vertebral body heights are normal.There is heterogeneous marrow signal throughout t his could be related to a combination of yellow and red marrow or to known multiple myeloma. There is additional moderate to severe left-sided predominant disc height loss at L5-S1, mild to moderate lef t-sided predominant disc height loss at L4-L5 and mild disc height loss at L2-L3. There is also moder ate disc height loss at T10-T11. The conus medullaris terminates at L1-L2. There is metallic magnetic field artifact on either side posterior paraspinal soft tissues at L3-L5. Correlate with surgical hi story. The following disc levels are specifically discussed: T12-L1: The disc does not extend beyond the endplate margin. There is mild bilateral facet joint oste oarthritis. There is no neural foraminal stenosis. There is no central canal stenosis. L1-L2: Disc is mildly bulging. There is hypertrophy of the ligamentum flavum. There is moderate bila teral facet joint osteoarthritis. There is mild bilateral neural foraminal stenosis. There is mild ce ntral canal stenosis. L2-L3: Disc is bulging. There is hypertrophy of the ligamentum flavum. There is moderate bilateral fa cet joint osteoarthritis. There is mild left neural foraminal stenosis. There is mild central canal s tenosis. L3-L4: Disc is bulging with annular fissure. There is hypertrophy of the ligamentum flavum. There is severe bilateral facet joint osteoarthritis. There is moderate to severe right and moderate left neur al foraminal stenosis. There is moderate central canal stenosis along with narrowing of the lateral r ecesses, right greater than left. L4-L5: Disc is bulging with annular fissure. There is hypertrophy of the ligamentum flavum. There is severe bilateral facet joint osteoarthritis. There is moderate right and moderate to severe left neur al foraminal stenosis. There is mild central canal stenosis. L5-S1: Disc is bulging with annular fissure and small right foraminal zone disc extrusion with disc m aterial extending 5 mm cephalad to the level of the inferior endplate of L5. There is severe left and moderate to severe right facet joint osteoarthritis. There is mild right and moderate to severe left neural foraminal stenosis. There is no central canal stenosis. IMPRESSION: 1. Severe lumbar spondylosis, advanced with Modic type III degenerative endplate changes at L3-L4. No findings to suggest discitis or osteomyelitis. 2. Diffuse heterogeneous marrow signal which could represent combination of red and yellow marrow or be related to reported known multiple myeloma. Reviewed, dictated and finalized at location B. S MANAGER IMPRESSION: 1. Severe lumbar spondylosis, advanced with Modic type III degenerative endplat e changes at L3-L4. No findings to suggest discitis or osteomyelitis. 2. Diffuse heterogeneous marrow signal which could represent combination of red and yellow marrow or be related to reported known multiple myeloma.
--- NOTE | ~2024-06-21 | XR_ITS ---
EXAMINATION: XR chest 2V Exam Date/Time: 06/21/2024 19:34 [employer] COOK HISTORY: weakness Comparison: None. RESULT: Lines, tubes, and devices: Right chest port terminates in the distal SVC. Lungs and pleura: Segmental lingular airspace opacity. Cardiomediastinal silhouette: Mild cardiomegaly. Mild arch calcification. Other: No acute osseous or upper abdominal finding. IMPRESSION: Segmental lingular atelectasis/consolidation. Reviewed, dictated and finalized at location K. I[employer] FOODS COOK
--- NOTE | 2024-06-21 19:19 | ECG_ITS ---
Test Date: 2024-06-21 19:21:55 Measurements Intervals [place] Rate: 90 P: 61 SD: 168 QRS: -11 QRSD: 92 T: 60 QT: 376 QTc: 461 Interpretive Statements SINUS RHYTHM MINIMAL VOLTAGE CRITERIA FOR LVH, CONSIDER NORMAL VARIANT [MEETS CRITERIA IN ONE OF: R(aVL), S(V1), R(V5), R(V5/V6)+S(V1)] No previous ECG available for comparison Electronically Signed On 06-26-2024 10:23:27 AGENCY SALES MANAGEMENT ASSISTANT by Angel Mario M.D.
--- NOTE | 2024-06-21 19:26 | PC.NURSE ---
and son are now at bedside at this time. says she was diagnosed in December 2023 with mutliple myloma. last chemo shot dose was Wednesday, 06/16. the pt got her old port on the L side taken out on 06/19 and a new one placed on that same day on her R shoulder. family says the patient is normally A&Ox4 and walks at home with a walker Dr. Pacheco did the port surgery and Dr. Ratliff is who the pt sees now
[2024-06-21 19:28] LABS: Hematocrit 30.4 % (37.0-47.0); Hemoglobin 10.2 g/dL (12.0-15.0); Mean Corpuscular HGB Conc 33.6 g/dl (32-36); Mean Corpuscular Hemoglobin 32.9 pg (26-34); Mean Corpuscular Volume 98.1 fl (80-100); Mean Platelet Volume 11.1 fl (7.4-10.4); Platelet Count Result 160 k/mm3 (150-375)
[2024-06-21 19:48] LABS: Alanine Aminotransferase 18 U/L (6-35); Albumin Level 3.7 g/dL (3.5-5.1); Alkaline Phosphatase 38 U/L (38-126); Anion Gap 6 mmol/L (4-12); Aspartate Amino Transferase 22 U/L (14-36); Bilirubin,Total 0.5 mg/dL (0.2-1.3); Blood Urea Nitrogen 30 mg/dL (7-17); Carbon Dioxide 27 mmol/L (22-30); Chloride 99 mmol/L (98-107); Estimated CRCL calculation 49 ml/min; Estimated Glomerular Filt Rate 60; Glucose 140 mg/dL (65-110); Potassium 3.6 mmol/L (3.4-5.0); Sodium 132 mmol/L (137-145)
[2024-06-21 19:58] LABS: Band Neutrophils Percent 11 % (0-6); Eosinophils Absolute Manual 0.04 K/mm3 (0.02-0.50); Eosinophils Percent Manual 1 % (0-4); Lymphocytes Absolute Manual 0.36 K/mm3 (1.1-4.5); Monocytes Percent Manual 5 % (3-9); Neutrophils Percent Manual 74 % (46-73); Platelet Estimate Adequate (Adequate); Schistocytes None Seen; Total Cells Counted 100
[2024-06-21 19:59] LABS: Anisocytosis 2+
[2024-06-21 20:04] LABS: Influenza A QL RT-PCR Negative (Negative); Influenza B QL RT-PCR Negative (Negative); RSV RNA, RT-PCR Negative (Negative); SARS-CoV-2 RNA PCR Negative (Negative)
[2024-06-21 20:10] LABS: Base Excess ABG 1.5 mEq/l (+/-2.0); Fractional Inspired Oxygen 21 %; HCO3 ABG 23.9 mEq/l (22.0-26.0); Oxygen Content ABG 13.6 %vol (16.0-22.0); Oxygen Saturation ABG 95.9 % (95.0-100.0); Oxyhemoglobin 92.6 % THb (90.0-100.0); PCO2 ABG 30.4 mmHg (35.0-45.0); PO2 ABG 71.3 mmHg (80.0-100.0); Total Hemoglobin 10.4 g/dL (12.0-18.0)
[2024-06-21 20:16] LABS: Device ROOM AIR; Modified Allen's Test Pass; Site Drawn RIGHT RADIAL; pH ABG 7.514 (7.350-7.450)
[2024-06-21 20:19] LABS: INR 1.1; Prothrombin Time 14.4 Seconds (11.1-14.7)
[2024-06-21 20:20] LABS: Partial Thromboplastin Time 26.6 Seconds (22.3-36.8)
[2024-06-21] MEDS: ACETAMINOPHEN 650 MG SUPPOSITORY RECTAL (20:22)
[2024-06-21] MEDS: SODIUM CHLORIDE 0.9% IV 3,000 ML 999 ML IV CONT (20:23)
[2024-06-21] MEDS: CEFEPIME 1 GM/NS 50 ML 1 GM/50 ML BAG IVPB (20:23)
[2024-06-21 20:35] LABS: Lactic Acid Reflex 3.2 mmol/L (0.7-2.0)
[2024-06-21 20:36] LABS: Troponin I < 0.012 ng/mL (0.000-0.034)
[2024-06-21 20:44] LABS: Add Urine Microscopic? YES; Appearance Urine Clear (Clear); Bacteria Urine None Seen /hpf; Bilirubin Urine Negative (Negative); Blood Urine Negative (Negative); Color Urine Yellow (Yellow); Glucose Urine UA Negative (Negative); Ketones Urine Negative (Negative); Leukocyte Esterase Ur Negative LEU/UL (Negative); Nitrate Urine Negative (Negative); Non Pathogenic Casts 0-2; Protein Urine Trace mg/dL (Negative); RBC Urine 0-2 /hpf (0-2); Specific Grav Ur 1.023 (1.001-1.035); Squamous Epithelial Cell Urine None Seen /hpf (Few); Urobilinogen Urine 0.2 mg/dL (<2.0); WBC Urine 0-5 /hpf (0-3); pH Urine 5.5 (5.0-9.0)
[2024-06-21 20:56] LABS: Glucose Point of Care 131 mg/dl (65-105)
[2024-06-21 20:56] LABS: Thyroid Stimulating Hormone Reflex 0.347 uIU/mL (0.465-4.68)
[2024-06-21 21:01] LABS: NT Pro B Type Natriuretic Pept 378 pg/mL (19.9-100)
[2024-06-21 21:05] LABS: Lipase 87 U/L (23-300); Magnesium 1.5 mg/dL (1.6-2.3)
--- NOTE | 2024-06-21 21:07 | PC.NURSE ---
the pt ekg was entered incorrectly. the last name was spelt incorrectly and the ekg machine is not letting us edit it
[2024-06-21 21:17] LABS: Creatine Kinase 59 U/L (30-135)
[2024-06-21] MEDS: metroNIDAZOLE 500 MG/ISO 100ML 500 MG/100 ML BAG 100 MG IVPB (21:22)
[2024-06-21 21:34] LABS: Free T4 Free Thyroxine Reflex 0.88 ng/dL (0.78-2.19)
[2024-06-21] MEDS: VANCOMYCIN 1,250 MG/NS 250 ML 1,250 MG/250 ML BAG 166.67 MG IVPB (22:24)
[2024-06-21 22:29] LABS: Total Triiodothyronine (T3) 0.98 NG/ML (0.97-1.69)
--- NOTE | 2024-06-21 22:41 | ED_ITS ---
HPI - General Adult General Chief complaint: Weakness Stated complaint: n/v/d, weakness, Fever 101.5, CA on chemo History of Present Illness HPI narrative: this is an 83-year-old female with history of multiple myeloma on chemotherapy presenting for N/V/D x1 day. Now the patient has become weak and more confused than usual. She did have her old Port-A-Cath switched out any new 1 installed several days ago. She is also complaining fevers. She denies chest pain difficulty breathing abdominal pain symptoms. Related Data Allergies Allergy/AdvReac Type Severity Reaction Status Date / Time No Known Allergies Allergy Verified 06/21/24 20:22 Exam 2 Narrative: APPEARANCE: No apparent distress. A&O times 1-2 Head: atraumatic. EYES: EOMI, NOSE: Atraumatic NECK: Trachea midline RESPIRATORY: No increased rate of breathing clear to auscultation CARDIOVASCULAR: RRR,No peripheral edema. ABDOMINAL: Non-distended MUSCULOSKELETAl: No obvious deformities NEURO: Alert. Moving 4/4 extremities SKIN:: Two surgical incisions upper right and upper left chest fromport placement and removal. No signs of infection. no skin breakdown PSYCHIATRIC: Normal affect Course Vital Signs Vital signs: Vital Signs Temperature 101.1 F H 06/21/24 18:48 Pulse Rate 91 06/21/24 18:48 Respiratory Rate 20 06/21/24 18:48 Blood Pressure 150/58 H 06/21/24 18:48 Pulse Oximetry 93 06/21/24 18:48 Oxygen Delivery Room Air 06/21/24 18:48 Temperature 98.7 F 06/21/24 23:02 Pulse Rate 94 06/21/24 23:16 Respiratory Rate 16 06/21/24 23:16 Blood Pressure 135/57 L 06/21/24 23:16 Pulse Oximetry 96 06/21/24 23:16 Oxygen Delivery Nasal Cannula 06/21/24 21:11 Oxygen Flow Rate 2 06/21/24 21:11 Medical Decision Making [facility] Narrative Medical decision making narrative: -Course: 83-year-old female presenting with 1 day of nausea vomiting diarrhea. She has now developed altered mental status and weakness. Patient is on chemotherapy for multiple myeloma. she is febrile at 101F. Full sepsis workup was obtained. Patient given 30 cc/kilogram bolus, tylenol and started on broad- spectrum antibiotics as she is immunocompromised. Workup significant for white blood cell count 4.0. Lactic 3.2. CT chest abdomen pelvis showed a focal ileus, Is some incidental pancreas findings as well as severe joint space narrowing at L3-L4 w/ some bony erosions.. Radiology recommended MRI to evaluate for osteomyelitis versus diskitis. No back pain on exam. Patient will be admitted for further management. -DDX includes but is not limited to: Gastroenteritis, dehydration, medication side effect, sepsis UTI pneumonia viral syndrome -Co-morbidities complicating care: multiple myeloma chemotherapy -Independent interpretation of studies: labs and imaging reviewed -Shared decision making / Disposition: admitted Vital Signs Vital Signs: Vital Signs Temperature 101.1 F H 06/21/24 18:48 Pulse Rate 91 06/21/24 18:48 Respiratory Rate 20 06/21/24 18:48 Blood Pressure 150/58 H 06/21/24 18:48 Pulse Oximetry 93 06/21/24 18:48 Oxygen Delivery Room Air 06/21/24 18:48 Temperature 98.7 F 06/21/24 23:02 Pulse Rate 94 06/21/24 23:16 Respiratory Rate 16 06/21/24 23:16 Blood Pressure 135/57 L 06/21/24 23:16 Pulse Oximetry 96 06/21/24 23:16 Oxygen Delivery Nasal Cannula 06/21/24 21:11 Oxygen Flow Rate 2 06/21/24 21:11 Lab Data 06/21/24 19:21 06/21/24 19:21 Labs: Lab Results 06/21/24 06/21/24 06/21/24 Range/Units 19:21 20:12 20:52 WBC 4.0 L (4.5-10.0) K/mm3 RBC 3.10 L (4.2-5.4) M/mm3 Hgb 10.2 L (12.0-15.0) g/dL Hct 30.4 L (37.0-47.0) % MCV 98.1 (80-100) fl MCH 32.9 (26-34) pg MCHC 33.6 (32-36) g/dl RDW 17.0 H (11.5-14.5) % Plt Count 160 (150-375) k/mm3 MPV 11.1 H (7.4-10.4) fl Immature Gran % (Auto) Not Reportable Neut % (Auto) Not Reportable Lymph % (Auto) Not Reportable Hood % (Auto) Not Reportable Eos % (Auto) Not Reportable Baso % (Auto) Not Reportable Lymph # (Auto) Not Reportable Hood # (Auto) Not Reportable Eos # (Auto) Not Reportable Baso # (Auto) Not Reportable Abs Immat Gran (auto) Not Reportable Absolute Neuts (auto) Not Reportable Absolute Nucleated RBC Not Reportable Total Counted 100 Neutrophils % (Manual) 74 H (46-73) % Band Neutrophils % 11 H (0-6) % Lymphocytes % (Manual) 9.0 L (18-44) % Monocytes % (Manual) 5 (3-9) % Eosinophils % (Manual) 1 (0-4) % Nucleated RBC % Not Reportable Abs Neuts (Manual) 3.40 (1.7-7.2) K/mm3 Abs Lymphs (Manual) 0.36 L (1.1-4.5) K/mm3 Abs Monocytes (Manual) 0.20 (0.1-0.90) K/mm3 Absolute Eos (Manual) 0.04 (0.02-0.50) K/mm3 Platelet Estimate Adequate (Adequate) Anisocytosis 2+ Schistocytes None seen PT 14.4 (11.1-14.7) Seconds INR 1.1 APTT 26.6 (22.3-36.8) Seconds Sodium 132 L (137-145) mmol/L Potassium 3.6 (3.4-5.0) mmol/L Chloride 99 (98-107) mmol/L Carbon Dioxide 27 (22-30) mmol/L Anion Gap 6 (4-12) mmol/L BUN 30 H (7-17) mg/dL Creatinine 0.90 (0.7-1.0) mg/dL Estim Creat Clear Calc 49 ml/min Estimated GFR 60 (59 - ) Glucose 140 H (65-110) mg/dL POC Capillary Glucose 131 H (65-105) mg/dl Lactic Acid 3.2 H (0.7-2.0) mmol/L Calcium 8.0 L (8.4-10.2) mg/dL Phosphorus 4.0 (2.5-4.5) mg/dL Magnesium 1.5 L (1.6-2.3) mg/dL Total Bilirubin 0.5 (0.2-1.3) mg/dL AST 22 (14-36) U/L ALT 18 (6-35) U/L Alkaline Phosphatase 38 (38-126) U/L Total Creatine Kinase 59 (30-135) U/L Troponin I < 0.012 (0.000-0.034) ng/mL NT-Pro-B Natriuret Pep 378 H (19.9-100) pg/mL Total Protein 6.0 L (6.3-8.2) g/dL Albumin 3.7 (3.5-5.1) g/dL Lipase 87 (23-300) U/L TSH (Reflex) 0.347 L (0.465-4.68) uIU/mL Free T4 0.88 (0.78-2.19) ng/dL Total T3 0.98 (0.97-1.69) NG/ML Urine Color Yellow (Yellow) Urine Appearance Clear (Clear) Urine pH 5.5 (5.0-9.0) Ur Specific Goodrich 1.023 (1.001-1.035) Urine Protein Trace (Negative) mg/dL Urine Glucose (UA) Negative (Negative) mg/dL Urine Ketones Negative (Negative) mg/dL Ur Blood (Man) Negative (Negative) Urine Nitrate Negative (Negative) Urine Bilirubin Negative (Negative) Urine Urobilinogen 0.2 (<2.0) mg/dL Leukocyte Esterase Rfl Negative (Negative) RADHA/UL Urine RBC 0-2 (0-2) /hpf Urine WBC 0-5 (0-3) /hpf Ur Squamous Epith Cells None seen (Few) /hpf Urine Bacteria None seen /hpf Urine Casts 0-2 Nasal MRSA (PCR) (NOT DETECTE) Influenza A (RT-PCR) Negative (Negative) Influenza B (RT-PCR) Negative (Negative) RSV (RT-PCR) Negative (Negative) SARS-CoV-2 RNA (RT-PCR) Negative (Negative) 06/21/24 06/21/24 06/21/24 Range/Units 21:28 22:52 23:35 WBC (4.5-10.0) K/mm3 RBC (4.2-5.4) M/mm3 Hgb (12.0-15.0) g/dL Hct (37.0-47.0) % MCV (80-100) fl MCH (26-34) pg MCHC (32-36) g/dl RDW (11.5-14.5) % Plt Count (150-375) k/mm3 MPV (7.4-10.4) fl Immature Gran % (Auto) Neut % (Auto) Lymph % (Auto) Hood % (Auto) Eos % (Auto) Baso % (Auto) Lymph # (Auto) Hood # (Auto) Eos # (Auto) Baso # (Auto) Abs Immat Gran (auto) Absolute Neuts (auto) Absolute Nucleated RBC Total Counted Neutrophils % (Manual) (46-73) % Band Neutrophils % (0-6) % Lymphocytes % (Manual) (18-44) % Monocytes % (Manual) (3-9) % Eosinophils % (Manual) (0-4) % Nucleated RBC % Abs Neuts (Manual) (1.7-7.2) K/mm3 Abs Lymphs (Manual) (1.1-4.5) K/mm3 Abs Monocytes (Manual) (0.1-0.90) K/mm3 Absolute Eos (Manual) (0.02-0.50) K/mm3 Platelet Estimate (Adequate) Anisocytosis Schistocytes PT (11.1-14.7) Seconds INR APTT (22.3-36.8) Seconds Sodium (137-145) mmol/L Potassium (3.4-5.0) mmol/L Chloride (98-107) mmol/L Carbon Dioxide (22-30) mmol/L Anion Gap (4-12) mmol/L BUN (7-17) mg/dL Creatinine (0.7-1.0) mg/dL Estim Creat Clear Calc ml/min Estimated GFR (59 - ) Glucose (65-110) mg/dL POC Capillary Glucose (65-105) mg/dl Lactic Acid 1.1 (0.7-2.0) mmol/L Calcium (8.4-10.2) mg/dL Phosphorus (2.5-4.5) mg/dL Magnesium (1.6-2.3) mg/dL Total Bilirubin (0.2-1.3) mg/dL AST (14-36) U/L ALT (6-35) U/L Alkaline Phosphatase (38-126) U/L Total Creatine Kinase (30-135) U/L Troponin I 0.013 (0.000-0.034) ng/mL NT-Pro-B Natriuret Pep (19.9-100) pg/mL Total Protein (6.3-8.2) g/dL Albumin (3.5-5.1) g/dL Lipase (23-300) U/L TSH (Reflex) (0.465-4.68) uIU/mL Free T4 (0.78-2.19) ng/dL Total T3 (0.97-1.69) NG/ML Urine Color (Yellow) Urine Appearance (Clear) Urine pH (5.0-9.0) Ur Specific Goodrich (1.001-1.035) Urine Protein (Negative) mg/dL Urine Glucose (UA) (Negative) mg/dL Urine Ketones (Negative) mg/dL Ur Blood (Man) (Negative) Urine Nitrate (Negative) Urine Bilirubin (Negative) Urine Urobilinogen (<2.0) mg/dL Leukocyte Esterase Rfl (Negative) RADHA/UL Urine RBC (0-2) /hpf Urine WBC (0-3) /hpf Ur Squamous Epith Cells (Few) /hpf Urine Bacteria /hpf Urine Casts Nasal MRSA (PCR) Not detected (NOT DETECTE) Influenza A (RT-PCR) (Negative) Influenza B (RT-PCR) (Negative) RSV (RT-PCR) (Negative) SARS-CoV-2 RNA (RT-PCR) (Negative) ABG Data ABG results: 06/21/24 19:57 Puncture Site Right radial ABG pH 7.514 H* ABG pCO2 30.4 L ABG pO2 71.3 L ABG PO2/FiO2 Ratio 3.40 ABG HCO3 23.9 ABG O2 Saturation 95.9 ABG O2 Content 13.6 L ABG Base Excess 1.5 A-a Gradient 42.0 Oxyhemoglobin 92.6 Total Hemoglobin 10.4 L O2 Delivery Device Room air O2 Liters/Min Not Reportable FiO2 21 Discharge Plan Discharge Clinical Impression: Nausea & vomiting, AMS (altered mental status), Multiple myeloma Patient Disposition: Still a Patient Condition: Guarded Prognosis Patient Language: Brazilian Follow-up/Referrals: UNKNOWN,DOCTOR [Primary Care Provider] -
[2024-06-21 22:44] LABS: MRSA (PCR) NOT DETECTED (NOT DETECTE)
--- NOTE | 2024-06-21 22:46 | ECG_ITS ---
Test Date: 2024-06-21 22:51:43 Measurements Intervals [place] Rate: 91 P: 58 NM: 183 QRS: 4 QRSD: 98 T: 62 QT: 400 QTc: 493 Interpretive Statements SINUS RHYTHM No previous ECG available for comparison Electronically Signed On 06-26-2024 10:27:09 AIRLINE PILOT by Angel Mario M.D.
[2024-06-21] MEDS: MAGNESIUM SULF 2 GM/WATER 50ML 2 GM/50 ML BAG IVPB (23:15)
[2024-06-21 23:21] LABS: Reflex Lactic Acid Yes or No Add Lactic
[2024-06-21 23:25] LABS: Troponin I 0.013 ng/mL (0.000-0.034)
[2024-06-21 23:50] LABS: Lactic Acid 1.1 mmol/L (0.7-2.0)
[2024-06-22] VITALS (12 sets, daily range): BP systolic 119–177; BP diastolic 38–71; PULSE 86–116; RESP 15–26; TEMP 35.1–39.3; O2SAT 9–100; BMI 37.5
[2024-06-22] MEDS: VANCOMYCIN 1,250 MG/NS 250 ML 1,250 MG/250 ML BAG 166.67 MG IVPB (00:01)
--- NOTE | 2024-06-22 01:38 | ADMGEN ---
This patient, Sloane Elise, was admitted to [facility] Surg Room 314-01. Patient/family oriented to hospital policies and general routines including ID bracelet, bed and alarms, visiting hours, pain management, procedures, bathroom and other care routines, personal items, smoking policy, room service/diet, and visiting hours. Information on how to activate the Rapid Response Team has been discussed. Patient/Family are encouraged to report perceived risks to care and to ask questions if they do not understand what they are told or what they should do.
[2024-06-22] MEDS: metroNIDAZOLE 500 MG/ISO 100ML 500 MG/100 ML BAG 100 MG IVPB ×3 (06:05→22:34)
[2024-06-22 07:09] LABS: Basophils Percent Auto 0.3 % (0.2-1.2); Eosinophils Absolute Auto 0.1 K/mm3 (0-0.3); Eosinophils Percent Auto 1.3 % (0-4.4); Hematocrit 28.5 % (37.0-47.0); Hemoglobin 9.3 g/dL (12.0-15.0); Immature Granulocyte Absolute 0.02 K/mm3 (0.00-0.031); Immature Granulocyte Percent A 0.5 % (0-0.5); Lymphocytes Absolute Auto 0.26 K/mm3 (0.9-3.2); Lymphocytes Percent Auto 6.9 % (18.3-44.2); Mean Corpuscular HGB Conc 32.6 g/dl (32-36); Mean Corpuscular Volume 101.1 fl (80-100); Mean Platelet Volume 11.4 fl (7.4-10.4); Monocytes Absolute Auto 0.5 K/mm3 (0.1-0.6); Monocytes Percent Auto 14.3 % (2.6-8.5); Neutrophils Absolute Auto 2.9 K/mm3 (1.3-6.7); Neutrophils Percent Auto 76.7 % (45.5-73.1); Platelet Count Result 139 k/mm3 (150-375); Red Blood Count 2.82 M/mm3 (4.2-5.4); Red Cell Distribution Width 17.1 % (11.5-14.5); White Blood Count 3.8 K/mm3 (4.5-10.0)
[2024-06-22 07:30] LABS: Alanine Aminotransferase 15 U/L (6-35); Alkaline Phosphatase 38 U/L (38-126); Anion Gap 2 mmol/L (4-12); Aspartate Amino Transferase 16 U/L (14-36); Bilirubin,Total 0.6 mg/dL (0.2-1.3); Blood Urea Nitrogen 20 mg/dL (7-17); Calcium 6.9 mg/dL (8.4-10.2); Carbon Dioxide 26 mmol/L (22-30); Chloride 105 mmol/L (98-107); Estimated CRCL calculation 55 ml/min; Estimated Glomerular Filt Rate > 60; Glucose 107 mg/dL (65-110); Magnesium 1.8 mg/dL (1.6-2.3); Potassium 3.2 mmol/L (3.4-5.0); Sodium 133 mmol/L (137-145)
--- NOTE | 2024-06-22 07:43 | P.HP_ITS ---
H&P: HPI History of Present Illness Date/Time: 06/22/24 07:43 Chief Complaint: Weakness Narrative: 83-year-old female with history of multiple myeloma on chemotherapy presenting for N/V/D x1 day. Now the patient has become weak and more confused than usual. She did have her old Port-A-Cath switched out any new 1 installed several days ago. She is also complaining fevers. She denies chest pain difficulty breathing abdominal pain symptoms. Pertinent labs: WBC 3.8, hemoglobin 9.3, hematocrit 28.5, platelet 139, sodium 133, potassium 3.2, BUN 20, creatinine 0.8 Chest/abdomen/pelvis CT:Mild esophagitis/gastritis. Mild dilation of a loop of jejunum in the mid abdomen, presumably secondary to focal ileus. Early obstruction not excluded. Multiple pancreatic cysts measuring up to 1.2 cm, demonstrating interval growth since 08/10/2020 examination. Consider follow-up with contrast enhanced MRI or pancreas protocol CT in one year, depending on the patient's overall health and preferences and if a surgical candidate. Severe disc space narrowing at L3-4 with erosive changes, may be secondary to osteomyelitis/discitis, neuropathic changes, or inflammatory arthropathy. Consider MR lumbar spine without and with contrast MRI lumbar shows no findings to suggest discitis or osteomyelitis.Diffuse heterogeneous marrow signal which could represent combination of red and yellow marrow or be related to reported known multiple myeloma. Patient was started on metronidazole, cefepime and vancomycin by the admitting team. Since the nasal MRSA was negative vancomycin has been discontinued. His since the CT abdomen shows mild dilation of loop of jejunum in the mid abdomen, presumably secondary to focal ileus. Early obstruction not included. Patient is started on metronidazole. Will continue monitoring for any signs of obstructions. If necessary will consult surgery. Of note Patient had left side port a cath which was placed on January, which was not properly working and replaced on right side about a week ago.Patient and her will bring the medication list for reconciliation. Patient has episodes of fever. Started on fluids. Ordered lactic acid. Blood culture is pending. FOR[facility]LY [facility] Past Medical History Medical History Myeloma Walker as ambulation aid Pulmonary hypertension HONG (obstructive sleep apnea) Hyperlipidemia Hypertension PMR (polymyalgia rheumatica) Chronic pain Fibromyalgia Insomnia Sleep apnea in adult Surgical History Surgical History H/O: hysterectomy History of esophagogastroduodenoscopy (EGD) H/O bladder repair surgery Hx of tonsillectomy H/O adenoidectomy Family History Family History (System 06/22/24 @ 11:30 by Breana Levine) Mother Family history of thyroid disease, Onset Age: 48 Father Family history of coronary artery disease, Onset Age: 94 Family history of congestive heart failure, Onset Age: 94 Sibling Diabetes mellitus Other Family history of cardiovascular disease Family history of elevated blood lipids No family history of malignant neoplasm Social History Social History (System 06/22/24 @ 11:30 by Breana Levine) Smoking status: Never smoker Second hand tobacco smoke exposure: No Alcohol intake: never Substance use: never Lack of Transportation: No Lack of Food: Sometimes True Current Housing: I Have Housing Concerned About Future Housing: No Difficulty Paying Gas/Electric Bills: No Difficulty Paying for Meds: No Currently Unemployed: No Education: High School Diploma/GED Difficulty w/ Childcare or Family Care: No Living arrangements: with family Additional living arrangements comments: Spiritual care concerns: No Meds Home Medications and Allergies Home Medications ?Medication ?Instructions ?Recorded ?Confirmed ?Type omeprazole 20 mg capsule,delayed 20 mg PO DAILY 05/29/19 06/05/24 History release glucosamine [id number] See Rx Instructions PO DAILY 10/06/19 06/19/24 History 400 mg-200 mg-333 mg tablet multivitamin 1 tablet PO DAILY 10/06/19 06/19/24 History aspirin 81 mg tablet,delayed 81 mg PO DAILY 07/31/21 06/19/24 History release fluticasone propionate 50 2 spray intranasal BID #36.4 mL 09/15/22 06/19/24 Rx mcg/actuation nasal spray,suspension acetaminophen 650 mg 1,300 mg PO Q12H PRN Pain 01/28/23 06/19/24 History tablet,extended release (Tylenol Arthritis Pain) artificial tears with lanolin eye 1 applic EACH EYE 4-12XD PRN Dry 01/28/23 06/19/24 History ointment Eyes biotin 10,000 mcg capsule 10,000 mcg PO DAILY 01/28/23 06/19/24 History fish, borage, flaxseed oils-omega 1 cap PO DAILY 01/28/23 06/19/24 History 3,6,9 comb no.1 1,200 mg capsule ([place] 3-6-9) turmeric root extract 500 mg 500 mg PO BID 01/28/23 06/19/24 History capsule montelukast 10 mg tablet See Rx Instructions .Route 12/24/23 06/05/24 Rx .COMPLEX #90 tabs ramipril 10 mg capsule 10 mg PO DAILY #90 caps 01/03/24 06/19/24 Rx metformin 500 mg tablet,extended 500 mg PO DAILY #90 tabs 01/13/24 06/05/24 Rx release 24 hr triamcinolone acetonide 0.1 % 1 applic topical PRN PRN Skin 01/27/24 06/05/24 History topical cream Irritation acyclovir 400 mg tablet 400 mg PO DAILY 02/11/24 06/19/24 History dexamethasone 4 mg tablet 4 mg PO DIRECTED 02/11/24 06/19/24 History ondansetron 8 mg disintegrating 8 mg PO Q8H PRN Nausea And Vomiting 02/11/24 06/05/24 History tablet sulfamethoxazole 800 800 tablet PO QMWF 02/11/24 06/05/24 History mg-trimethoprim 160 mg tablet metronidazole 1 % topical gel with See Rx Instructions .Route 02/28/24 06/05/24 Rx pump .COMPLEX #55 grams levothyroxine 50 mcg tablet See Rx Instructions .Route 03/13/24 06/19/24 Rx .COMPLEX #90 tabs ezetimibe 10 mg tablet See Rx Instructions .Route 03/16/24 06/05/24 Rx .COMPLEX #90 tabs eszopiclone 3 mg tablet (Lunesta) 3 mg PO QHS PRN insomnia #30 tabs 03/30/24 06/19/24 Rx hydrochlorothiazide 25 mg tablet See Rx Instructions .Route 04/10/24 06/19/24 Rx .COMPLEX #90 tabs atorvastatin 20 mg tablet (Lipitor) 20 mg PO QHS #90 tabs 04/26/24 06/19/24 Rx gabapentin 600 mg tablet 600 mg PO QID #360 tabs 05/01/24 06/19/24 Rx milnacipran 25 mg tablet (Savella) 25 mg PO DAILY 30 days #30 tabs 11/13/24 12/16/24 Rx lidocaine 5 % topical patch 1 patch topical DAILY #30 ea 05/16/24 06/05/24 Rx tramadol 50 mg tablet 50 mg PO Q12H PRN pain 06/05/24 06/05/24 History metoprolol succinate 100 mg See Rx Instructions .Route 06/12/24 06/19/24 Rx tablet,extended release 24 hr .COMPLEX #90 tabs acyclovir 400 mg tablet 400 mg PO BID 06/22/24 06/22/24 History atorvastatin 20 mg tablet 20 mg PO DAILY 06/22/24 06/22/24 History dexamethasone 4 mg tablet 20 mg PO WEEKLY 06/22/24 06/22/24 History eszopiclone 3 mg tablet 3 mg PO QHS PRN insomnia 06/22/24 06/22/24 History ezetimibe 10 mg tablet 10 mg PO DAILY 06/22/24 06/22/24 History gabapentin 600 mg tablet 600 mg PO QID 06/22/24 06/22/24 History hydrochlorothiazide 25 mg tablet 25 mg PO DAILY 06/22/24 06/22/24 History lenalidomide 15 mg capsule 15 mg PO DAILY 06/22/24 06/22/24 History (Revlimid) lenalidomide 25 mg capsule mg PO 06/22/24 History (Revlimid) levothyroxine 50 mcg tablet 50 mcg PO .q 0630 06/22/24 06/22/24 History lidocaine 5 % topical patch 1 patch topical DAILY 06/22/24 06/22/24 History lidocaine-prilocaine 2.5 %-2.5 % 1 applic topical PRN PRN Port 06/22/24 06/22/24 History topical cream Access metformin 500 mg tablet,extended 500 mg PO DAILY 06/22/24 06/22/24 History release 24 hr metoprolol succinate 100 mg 100 mg PO DAILY 06/22/24 06/22/24 History tablet,extended release 24 hr metronidazole 1 % topical gel with 1 applic topical BID 06/22/24 06/22/24 History pump milnacipran 25 mg tablet (Savella) 25 mg PO DAILY 06/22/24 06/22/24 History montelukast 10 mg tablet 10 mg PO DAILY 06/22/24 06/22/24 History ondansetron 8 mg disintegrating 8 mg translingual Q8H PRN nausea 06/22/24 06/22/24 History tablet and vomiting ramipril 10 mg capsule 10 mg PO DAILY 06/22/24 06/22/24 History sulfamethoxazole 800 tablet 06/22/24 History mg-trimethoprim 160 mg tablet tramadol 50 mg tablet mg 06/22/24 History Allergies Allergy/AdvReac Type Severity Reaction Status Date / Time doxycycline Allergy Severe Itching Verified 06/22/24 11:30 alprazolam Allergy Intermediate Other-UNABLE Verified 06/22/24 11:30 TO RECALL minocycline Allergy Intermediate Itching, Verified 06/22/24 11:30 HIVES propoxyphene Allergy Intermediate Itching Verified 06/22/24 11:30 carboxymethylcellulose sodium Allergy Mild Other-UNABLE Verified 06/22/24 11:30 TO RECALL duloxetine Allergy Mild Unknown-UNABLE Verified 06/22/24 11:30 TO RECALL indomethacin Allergy Mild Unknown-UNABLE Verified 06/22/24 11:30 TO RECALL linaclotide Allergy Mild Other-UNABLE Verified 06/22/24 11:30 TO RECALL nabumetone Allergy Mild Unknown-UNABLE Verified 06/22/24 11:30 TO RECALL sulfamethoxazole Allergy Mild Unknown-UNABLE Verified 06/22/24 11:30 TO RECALL terbinafine Allergy Mild Unknown-UNABLE Verified 06/22/24 11:30 TO RECALL valdecoxib Allergy Mild Unknown-UNABLE Verified 06/22/24 11:30 TO RECALL etodolac Allergy Unknown UNKNOWN-UNABLE Verified 06/22/24 11:30 TO RECALL chlorpheniramine AdvReac Intermediate HARD TO Verified 06/22/24 11:30 AWAKEN codeine AdvReac Intermediate Nervousness, Verified 06/22/24 11:30 HEART RACES, HEAD FEELS STRANGE dexchlorpheniramine AdvReac Intermediate Other-ZEUS Verified 06/22/24 11:30 RGY levocarnitine AdvReac Intermediate (Trinalin)= Verified 06/22/24 11:30 Nausea levofloxacin AdvReac Intermediate Nausea and Verified 06/22/24 11:30 Vomiting phenylephrine AdvReac Intermediate Other-ZEUS Verified 06/22/24 11:30 RGY phenylpropanolamine AdvReac Intermediate Other- IMMU Verified 06/22/24 11:30 NE rofecoxib AdvReac Intermediate Swelling, Verified 06/22/24 11:30 WATER RETENTION scopolamine AdvReac Intermediate Other-ZEUS Verified 06/22/24 11:30 RGY amitriptyline AdvReac Mild Other-ZEUS Verified 06/22/24 11:30 RGY brompheniramine AdvReac Mild other- TOO Verified 06/22/24 11:30 DRYING carbinoxamine AdvReac Mild Other- TOO Verified 06/22/24 11:30 DRYING diclofenac AdvReac Mild HEARTBURN Verified 06/22/24 11:30 oxybutynin AdvReac Mild Rash Verified 06/22/24 11:30 ramelteon AdvReac Mild Nausea Verified 06/22/24 11:30 terfenadine AdvReac Mild Nausea Verified 06/22/24 11:30 trazodone AdvReac Mild Restless Verified 06/22/24 11:30 Sleep pregabalin (From Lyrica) AdvReac Unknown does not Verified 06/22/24 11:30 remember gabapentin AdvReac does not Verified 06/22/24 11:30 remember Vital Signs Vital Signs - 24 hr 06/21/24 18:48 06/21/24 19:14 06/21/24 19:17 Temperature 101.1 F H Pulse Rate 91 92 91 Respiratory Rate 20 14 Blood Pressure 150/58 H 141/63 H Pulse Oximetry 93 90 Oxygen Delivery Room Air Oxygen Flow Rate 06/21/24 19:32 06/21/24 19:44 06/21/24 19:47 Temperature Pulse Rate 91 90 89 Respiratory Rate 16 17 15 Blood Pressure 146/64 H 133/62 135/56 L Pulse Oximetry 93 94 94 Oxygen Delivery Oxygen Flow Rate 06/21/24 20:02 06/21/24 20:17 06/21/24 20:45 Temperature 102.3 F H Pulse Rate 91 92 Respiratory Rate 20 15 Blood Pressure 137/58 L 120/53 L Pulse Oximetry 93 94 Oxygen Delivery Oxygen Flow Rate 06/21/24 21:11 06/21/24 21:26 06/21/24 21:31 Temperature 99.4 F Pulse Rate 98 97 Respiratory Rate 19 13 Blood Pressure 134/54 L 134/71 Pulse Oximetry 98 97 97 Oxygen Delivery Nasal Cannula Oxygen Flow Rate 2 06/21/24 21:33 06/21/24 21:46 06/21/24 21:47 Temperature 99.4 F Pulse Rate 95 94 Respiratory Rate 18 14 Blood Pressure 134/54 L Pulse Oximetry 96 97 Oxygen Delivery Oxygen Flow Rate 06/21/24 22:02 06/21/24 23:02 06/21/24 23:16 Temperature 98.7 F Pulse Rate 94 92 94 Respiratory Rate 15 16 16 Blood Pressure 135/56 L 128/59 L 135/57 L Pulse Oximetry 96 95 96 Oxygen Delivery Oxygen Flow Rate 06/22/24 00:00 06/22/24 00:46 06/22/24 01:50 Temperature 97.2 F L Pulse Rate 98 86 Respiratory Rate 20 15 Blood Pressure 154/60 H 137/63 Pulse Oximetry 98 98 100 Oxygen Delivery Nasal Cannula Oxygen Flow Rate 2 06/22/24 03:34 06/22/24 04:00 Temperature 97.3 F L Pulse Rate 91 87 Respiratory Rate 20 Blood Pressure 145/70 H Pulse Oximetry 100 Oxygen Delivery Oxygen Flow Rate H&P: Results Labs Labs: Short CBC 06/21/24 06/22/24 Range/Units 19:21 06:16 WBC 4.0 L 3.8 L (4.5-10.0) K/mm3 Hgb 10.2 L 9.3 L (12.0-15.0) g/dL Hct 30.4 L 28.5 L (37.0-47.0) % Plt Count 160 139 L (150-375) k/mm3 BMP 06/21/24 06/22/24 19:21 06:16 Sodium 132 L 133 L Potassium 3.6 3.2 L Chloride 99 105 Carbon Dioxide 27 26 BUN 30 H 20 H D Creatinine 0.90 0.80 Glucose 140 H 107 Calcium 8.0 L 6.9 L Cardiac Enzymes 06/21/24 06/21/24 Range/Units 19:21 22:52 Total Creatine Kinase 59 (30-135) U/L Troponin I < 0.012 0.013 (0.000-0.034) ng/mL Liver Function 06/21/24 06/22/24 Range/Units 19:21 06:16 Total Bilirubin 0.5 0.6 (0.2-1.3) mg/dL AST 22 16 (14-36) U/L ALT 18 15 (6-35) U/L Alkaline Phosphatase 38 38 (38-126) U/L Albumin 3.7 3.0 L (3.5-5.1) g/dL Urine 06/21/24 Range/Units 20:12 Urine Color Yellow (Yellow) Urine Appearance Clear (Clear) Urine pH 5.5 (5.0-9.0) Ur Specific [place] 1.023 (1.001-1.035) Urine Protein Trace (Negative) mg/dL Urine Glucose (UA) Negative (Negative) mg/dL Assessment and Plan Assessment and plan (1) Myeloma: Code(s): C90.00 - Multiple myeloma not having achieved remission Status: Acute (2) Ileus: Code(s): K56.7 - Ileus, unspecified Status: Acute (3) Port-A-Cath in place: Code(s): Z95.828 - Presence of other vascular implants and grafts Status: Acute Plan MM Neutropenic precautions Started on vancomycin, metronidazole, cefepime prophylactically Nasal MRSA negative DC vancomycin Watch for any abnormal vitals Will consider medical records clerk consultation if needed White cell of 2K today. Afebrile, no sign of infection, hemoglobin 6.5, transfuse 1 PRBC Focal Ileus On metronidazole Will continue monitor If needed will consider surgery consult Patient and her will bring the medication list for reconciliation DVT prophylaxis: Lovenox 40 mg GI prophylaxis: Pantoprazole 40 mg Hospitalist MIPS Advance Care Plan I have confirmed that the patient's Advanced Care Plan is present, code status is documented, or surrogate decision maker is listed in patient medical record.: Yes Medication Reconciliation I have utilized all available resources to obtain, update and review the patients current medications (includes all prescriptions, OTC, herbals, cannabis, and nutritional supplements).: Yes
[2024-06-22] MEDS: CEFEPIME 2 GM/NS 50 ML 2 GM/50 ML BAG IVPB ×2 (09:56→22:03)
[2024-06-22] MEDS: ACETAMINOPHEN 325 MG TABLET 650 MG PO ×2 (14:12→18:42)
[2024-06-22] MEDS: POTASSIUM CHLORIDE INJ 40 MEQ in SODIUM CHLORIDE 0.9% IV 500 ML 130 MEQ IVPB (17:57)
[2024-06-22] MEDS: hydrALAZINE HCL 20 MG/ML VIAL 10 MG IV PUSH (18:42)
[2024-06-22 18:43] LABS: Lactic Acid Reflex 1.8 mmol/L (0.7-2.0)
[2024-06-22] MEDS: SODIUM CHLORIDE 0.9% IV 1,000 ML 100 ML IV CONT (18:43)
[2024-06-22 20:51] LABS: Glucose Point of Care 133 mg/dl (65-105)
--- NOTE | 2024-06-22 21:05 | ECG_ITS ---
Test Date: 2024-06-22 22:40:29 Measurements Intervals [place] Rate: 104 P: 55 MN: 165 QRS: -3 QRSD: 90 T: 58 QT: 366 QTc: 483 Interpretive Statements SINUS TACHYCARDIA MINIMAL ST DEPRESSION [0.025+ mV ST DEPRESSION] ABNORMAL RHYTHM ECG No previous ECG available for comparison Electronically Signed On 06-26-2024 14:53:01 RN CLINICAL by Angel Mario M.D.
[2024-06-22] MEDS: CALCIUM GLUC 1,000 MG/NS 50 ML 1,000 MG/50 ML BAG 100 MG IVPB (21:15)
[2024-06-22] MEDS: [UNRECOGNIZED DRUG - REMARK] 1 EACH XX (22:01)
[2024-06-22] MEDS: [UNRECOGNIZED DRUG - REMARK] 1 EACH XX (22:03)
[2024-06-22] MEDS: [UNRECOGNIZED DRUG - REMARK] 1 EACH XX (23:35)
[2024-06-23] VITALS (14 sets, daily range): BP systolic 151–178; BP diastolic 54–83; PULSE 80–107; RESP 18–24; TEMP 36.6–37.4; O2SAT 95–97
[2024-06-23] MEDS: MELATONIN 5 MG TABLET PO ×2 (00:11→20:54)
[2024-06-23] MEDS: ACETAMINOPHEN 325 MG TABLET 650 MG PO ×2 (00:12→13:10)
[2024-06-23] MEDS: FUROSEMIDE INJ 40 MG/4 ML VIAL IV PUSH (01:05)
[2024-06-23] MEDS: KETOROLAC 30 MG/ML VIAL (*BKC) IV PUSH (01:09)
[2024-06-23] MEDS: ONDANSETRON INJ 4 MG/2 ML VIAL IV PUSH (01:11)
[2024-06-23 01:25] LABS: Alveolar/Arterial O2 Gradient 29.3 mmHg; Base Excess ABG -3.3 mEq/l (+/-2.0); Device ROOM AIR; Fractional Inspired Oxygen 21 %; HCO3 ABG 19.6 mEq/l (22.0-26.0); Modified Allen's Test Pass; Oxygen Saturation ABG 97.1 % (95.0-100.0); Oxyhemoglobin 95.1 % THb (90.0-100.0); PCO2 ABG 28.3 mmHg (35.0-45.0); PO2 ABG 86.5 mmHg (80.0-100.0); PO2 FiO2 Ratio Arterial Blood 4.12 %; Site Drawn RIGHT RADIAL; Total Hemoglobin 10.4 g/dL (12.0-18.0); pH ABG 7.458 (7.350-7.450)
[2024-06-23 03:32] LABS: Basophils Percent Auto 0.4 % (0.2-1.2); Eosinophils Absolute Auto 0.1 K/mm3 (0-0.3); Eosinophils Percent Auto 1.1 % (0-4.4); Hematocrit 28.9 % (37.0-47.0); Hemoglobin 9.7 g/dL (12.0-15.0); Immature Granulocyte Absolute 0.01 K/mm3 (0.00-0.031); Immature Granulocyte Percent A 0.2 % (0-0.5); Lymphocytes Absolute Auto 0.51 K/mm3 (0.9-3.2); Lymphocytes Percent Auto 10.8 % (18.3-44.2); Mean Corpuscular HGB Conc 33.6 g/dl (32-36); Mean Corpuscular Hemoglobin 33.3 pg (26-34); Mean Corpuscular Volume 99.3 fl (80-100); Mean Platelet Volume 10.6 fl (7.4-10.4); Monocytes Absolute Auto 0.7 K/mm3 (0.1-0.6); Monocytes Percent Auto 15.5 % (2.6-8.5); Neutrophils Absolute Auto 3.4 K/mm3 (1.3-6.7); Platelet Count Result 130 k/mm3 (150-375); Red Blood Count 2.91 M/mm3 (4.2-5.4); White Blood Count 4.7 K/mm3 (4.5-10.0)
[2024-06-23 03:42] LABS: Lactic Acid Reflex 1.2 mmol/L (0.7-2.0)
[2024-06-23 03:43] LABS: Alanine Aminotransferase 16 U/L (6-35); Albumin Level 3.3 g/dL (3.5-5.1); Alkaline Phosphatase 40 U/L (38-126); Anion Gap 3 mmol/L (4-12); Aspartate Amino Transferase 17 U/L (14-36); Bilirubin,Total 0.5 mg/dL (0.2-1.3); Blood Urea Nitrogen 13 mg/dL (7-17); Calcium 7.1 mg/dL (8.4-10.2); Carbon Dioxide 25 mmol/L (22-30); Chloride 106 mmol/L (98-107); Estimated CRCL calculation 62 ml/min; Estimated Glomerular Filt Rate > 60; Glucose 136 mg/dL (65-110); Magnesium 1.7 mg/dL (1.6-2.3); Potassium 3.3 mmol/L (3.4-5.0); Sodium 134 mmol/L (137-145)
[2024-06-23 03:50] LABS: NT Pro B Type Natriuretic Pept 338 pg/mL (19.9-100)
[2024-06-23] MEDS: metroNIDAZOLE 500 MG/ISO 100ML 500 MG/100 ML BAG 100 MG IVPB ×3 (06:44→22:41)
[2024-06-23] MEDS: LEVOTHYROXINE SODIUM 50 MCG TABLET PO (06:44)
[2024-06-23 08:03] LABS: Glucose Point of Care 140 mg/dl (65-105)
[2024-06-23] MEDS: CEFEPIME 2 GM/NS 50 ML 2 GM/50 ML BAG IVPB ×2 (08:30→21:11)
[2024-06-23] MEDS: ramipriL 5 MG CAPSULE 10 MG PO (08:56)
[2024-06-23] MEDS: MULTIVITAMINS THERAPEUTIC TAB (*BKC) 1 TABLET PO (08:56)
[2024-06-23] MEDS: MONTELUKAST SODIUM 10 MG TABLET PO (08:56)
[2024-06-23] MEDS: ENOXAPARIN 40 MG/0.4 ML SYRINGE SUB-Q (08:57)
[2024-06-23] MEDS: PANTOPRAZOLE SODIUM IV 40 MG VIAL IV PUSH (08:57)
[2024-06-23] MEDS: METOPROLOL SUCCINATE EXT REL 100 MG TABCR PO (08:57)
[2024-06-23] MEDS: LIDOCAINE 5% PATCH 1 PATCH TOPICAL (08:58)
[2024-06-23] MEDS: hydroCHLOROthiazide 25 MG TABLET BY MOUTH (08:58)
[2024-06-23] MEDS: POTASSIUM CHLORIDE INJ 40 MEQ in SODIUM CHLORIDE 0.9% IV 500 ML 130 MEQ IVPB (10:10)
[2024-06-23 11:34] LABS: Glucose Point of Care 141 mg/dl (65-105)
--- NOTE | 2024-06-23 13:06 | P.CONGS_ITS ---
Assessment and Plan Assessment and plan (1) Ileus: Code(s): K56.7 - Ileus, unspecified Status: Acute Assessment and Plan: Review images and exam consistent with ileus secondary to dehydration, electrolyte imbalances, exam is largely benign at this point, continue to encourage p.o., PT/OT, out of bed, continue serial exams History of Present Illness Consult details Consult date: 06/23/24 Reason for consult: abdominal pain Requesting physician: Tim Preciado MD Narrative: The patient is an 83-year-old female presenting to the hospital complaining of mental status change, weakness, dehydration. The patient with noted multiple myeloma and currently on chemotherapy. The patient a port placed on 06/[address] Pacheco and reports no issues. Workup, including imaging, shows ileus versus focal obstruction. Of note, since admission the patient reports she is now feeling much improved. The patient has been able to tolerate a diet at this time. The patient reports she is passing some flatus, however has not had a bowel movement for a few days. Patient reports prior to admission she was having some diarrhea. Review of Systems 2 Review of Systems: All systems reviewed & are unremarkable except as noted in HPI and below PMFSH Past Medical History Medical History Myeloma Walker as ambulation aid Pulmonary hypertension HONG (obstructive sleep apnea) Hyperlipidemia Hypertension PMR (polymyalgia rheumatica) Chronic pain Fibromyalgia Insomnia Sleep apnea in adult Surgical History Surgical History H/O: hysterectomy History of esophagogastroduodenoscopy (EGD) H/O bladder repair surgery Hx of tonsillectomy H/O adenoidectomy Family History Family History Mother Family history of thyroid disease, Onset Age: 48 Father Family history of coronary artery disease, Onset Age: 94 Family history of congestive heart failure, Onset Age: 94 Sibling Diabetes mellitus Other Family history of cardiovascular disease Family history of elevated blood lipids No family history of malignant neoplasm Social History Social History Smoking status: Never smoker Second hand tobacco smoke exposure: No Alcohol intake: never Substance use: never Lack of Transportation: No Lack of Food: Sometimes True Current Housing: I Have Housing Concerned About Future Housing: No Difficulty Paying Gas/Electric Bills: No Difficulty Paying for Meds: No Currently Unemployed: No Education: High School Diploma/GED Difficulty w/ Childcare or Family Care: No Living arrangements: with family Additional living arrangements comments: Spiritual care concerns: No Meds Home Medications and Allergies Home Medications ?Medication ?Instructions ?Recorded ?Confirmed ?Type omeprazole 20 mg capsule,delayed 20 mg PO DAILY 05/29/19 06/22/24 History release glucosamine [id number] See Rx Instructions PO DAILY 10/06/19 06/22/24 History 400 mg-200 mg-333 mg tablet multivitamin 1 tablet PO DAILY 10/06/19 06/22/24 History aspirin 81 mg tablet,delayed 81 mg PO DAILY 07/31/21 06/22/24 History release fluticasone propionate 50 2 spray intranasal BID #36.4 mL 09/15/22 06/22/24 Rx mcg/actuation nasal spray,suspension acetaminophen 650 mg 1,300 mg PO Q12H PRN Pain 01/28/23 06/22/24 History tablet,extended release (Tylenol Arthritis Pain) artificial tears with lanolin eye 1 applic EACH EYE 4-12XD PRN Dry 01/28/23 06/22/24 History ointment Eyes biotin 10,000 mcg capsule 10,000 mcg PO DAILY 01/28/23 06/22/24 History fish, borage, flaxseed oils-omega 1 cap PO DAILY 01/28/23 06/22/24 History 3,6,9 comb no.1 1,200 mg capsule ([place] 3-6-9) turmeric root extract 500 mg 500 mg PO BID 01/28/23 06/22/24 History capsule montelukast 10 mg tablet See Rx Instructions .Route 12/24/23 06/22/24 Rx .COMPLEX #90 tabs ramipril 10 mg capsule 10 mg PO DAILY #90 caps 01/03/24 06/22/24 Rx metformin 500 mg tablet,extended 500 mg PO DAILY #90 tabs 01/13/24 06/22/24 Rx release 24 hr triamcinolone acetonide 0.1 % 1 applic topical PRN PRN Skin 01/27/24 06/22/24 History topical cream Irritation acyclovir 400 mg tablet 400 mg PO DAILY 02/11/24 06/22/24 History dexamethasone 4 mg tablet 4 mg PO DIRECTED 02/11/24 06/22/24 History ondansetron 8 mg disintegrating 8 mg PO Q8H PRN Nausea And Vomiting 02/11/24 06/22/24 History tablet sulfamethoxazole 800 800 tablet PO QMWF 02/11/24 06/22/24 History mg-trimethoprim 160 mg tablet metronidazole 1 % topical gel with See Rx Instructions .Route 02/28/24 06/22/24 Rx pump .COMPLEX #55 grams levothyroxine 50 mcg tablet See Rx Instructions .Route 03/13/24 06/22/24 Rx .COMPLEX #90 tabs ezetimibe 10 mg tablet See Rx Instructions .Route 03/16/24 06/22/24 Rx .COMPLEX #90 tabs eszopiclone 3 mg tablet ([place]) 3 mg PO QHS PRN insomnia #30 tabs 03/30/24 06/22/24 Rx hydrochlorothiazide 25 mg tablet See Rx Instructions .Route 04/10/24 06/22/24 Rx .COMPLEX #90 tabs atorvastatin 20 mg tablet (Lipitor) 20 mg PO QHS #90 tabs 04/26/24 06/22/24 Rx gabapentin 600 mg tablet 600 mg PO QID #360 tabs 05/01/24 06/22/24 Rx milnacipran 25 mg tablet ([place]) 25 mg PO DAILY 30 days #30 tabs 05/03/24 06/22/24 Rx lidocaine 5 % topical patch 1 patch topical DAILY #30 ea 05/16/24 06/22/24 Rx tramadol 50 mg tablet 50 mg PO Q12H PRN pain 06/05/24 06/22/24 History metoprolol succinate 100 mg See Rx Instructions .Route 06/12/24 06/22/24 Rx tablet,extended release 24 hr .COMPLEX #90 tabs acyclovir 400 mg tablet 400 mg PO BID 06/22/24 06/22/24 History atorvastatin 20 mg tablet 20 mg PO DAILY 06/22/24 06/22/24 History dexamethasone 4 mg tablet 20 mg PO WEEKLY 06/22/24 06/22/24 History eszopiclone 3 mg tablet 3 mg PO QHS PRN insomnia 06/22/24 06/22/24 History ezetimibe 10 mg tablet 10 mg PO DAILY 06/22/24 06/22/24 History gabapentin 600 mg tablet 600 mg PO QID 06/22/24 06/22/24 History hydrochlorothiazide 25 mg tablet 25 mg PO DAILY 06/22/24 06/22/24 History lenalidomide 15 mg capsule 15 mg PO DAILY 06/22/24 06/22/24 History (Revlimid) lenalidomide 25 mg capsule mg PO 06/22/24 History (Revlimid) levothyroxine 50 mcg tablet 50 mcg PO .q 0630 06/22/24 06/22/24 History lidocaine 5 % topical patch 1 patch topical DAILY 06/22/24 06/22/24 History lidocaine-prilocaine 2.5 %-2.5 % 1 applic topical PRN PRN Port 06/22/24 06/22/24 History topical cream Access metformin 500 mg tablet,extended 500 mg PO DAILY 06/22/24 06/22/24 History release 24 hr metoprolol succinate 100 mg 100 mg PO DAILY 06/22/24 06/22/24 History tablet,extended release 24 hr metronidazole 1 % topical gel with 1 applic topical BID 06/22/24 06/22/24 History pump milnacipran 25 mg tablet (Savella) 25 mg PO DAILY 06/22/24 06/22/24 History montelukast 10 mg tablet 10 mg PO DAILY 06/22/24 06/22/24 History ondansetron 8 mg disintegrating 8 mg translingual Q8H PRN nausea 06/22/24 06/22/24 History tablet and vomiting ramipril 10 mg capsule 10 mg PO DAILY 06/22/24 06/22/24 History sulfamethoxazole 800 tablet 06/22/24 History mg-trimethoprim 160 mg tablet tramadol 50 mg tablet mg 06/22/24 History Allergies Allergy/AdvReac Type Severity Reaction Status Date / Time doxycycline Allergy Severe Itching Verified 06/22/24 11:30 alprazolam Allergy Intermediate Other-UNABLE Verified 06/22/24 11:30 TO RECALL minocycline Allergy Intermediate Itching, Verified 06/22/24 11:30 HIVES propoxyphene Allergy Intermediate Itching Verified 06/22/24 11:30 carboxymethylcellulose sodium Allergy Mild Other-UNABLE Verified 06/22/24 11:30 TO RECALL duloxetine Allergy Mild Unknown-UNABLE Verified 06/22/24 11:30 TO RECALL indomethacin Allergy Mild Unknown-UNABLE Verified 06/22/24 11:30 TO RECALL linaclotide Allergy Mild Other-UNABLE Verified 06/22/24 11:30 TO RECALL nabumetone Allergy Mild Unknown-UNABLE Verified 06/22/24 11:30 TO RECALL sulfamethoxazole Allergy Mild Unknown-UNABLE Verified 06/22/24 11:30 TO RECALL terbinafine Allergy Mild Unknown-UNABLE Verified 06/22/24 11:30 TO RECALL valdecoxib Allergy Mild Unknown-UNABLE Verified 06/22/24 11:30 TO RECALL etodolac Allergy Unknown UNKNOWN-UNABLE Verified 06/22/24 11:30 TO RECALL chlorpheniramine AdvReac Intermediate HARD TO Verified 06/22/24 11:30 AWAKEN codeine AdvReac Intermediate Nervousness, Verified 06/22/24 11:30 HEART RACES, HEAD FEELS STRANGE dexchlorpheniramine AdvReac Intermediate Other-ZEUS Verified 06/22/24 11:30 RGY levocarnitine AdvReac Intermediate (Trinalin)= Verified 06/22/24 11:30 Nausea levofloxacin AdvReac Intermediate Nausea and Verified 06/22/24 11:30 Vomiting phenylephrine AdvReac Intermediate Other-ZEUS Verified 06/22/24 11:30 RGY phenylpropanolamine AdvReac Intermediate Other- IMMU Verified 06/22/24 11:30 NE rofecoxib AdvReac Intermediate Swelling, Verified 06/22/24 11:30 WATER RETENTION scopolamine AdvReac Intermediate Other-ZEUS Verified 06/22/24 11:30 RGY amitriptyline AdvReac Mild Other-ZEUS Verified 06/22/24 11:30 RGY brompheniramine AdvReac Mild other- TOO Verified 06/22/24 11:30 DRYING carbinoxamine AdvReac Mild Other- TOO Verified 06/22/24 11:30 DRYING diclofenac AdvReac Mild HEARTBURN Verified 06/22/24 11:30 oxybutynin AdvReac Mild Rash Verified 06/22/24 11:30 ramelteon AdvReac Mild Nausea Verified 06/22/24 11:30 terfenadine AdvReac Mild Nausea Verified 06/22/24 11:30 trazodone AdvReac Mild Restless Verified 06/22/24 11:30 Sleep pregabalin (From Lyrica) AdvReac Unknown does not Verified 06/22/24 11:30 remember gabapentin AdvReac does not Verified 06/22/24 11:30 remember Vital Signs Vital Signs - 24 hr 06/22/24 16:00 06/22/24 16:00 06/22/24 17:00 Temperature 35.1 C L 39.3 C H Pulse Rate 90 92 Respiratory Rate 18 Blood Pressure 172/71 H Pulse Oximetry 95 Oxygen Delivery 06/22/24 18:42 06/22/24 20:00 06/22/24 20:00 Temperature 39.3 C H 36.9 C Pulse Rate 105 H 116 H Respiratory Rate 26 H Blood Pressure 177/56 H Pulse Oximetry 96 Oxygen Delivery 06/22/24 22:45 06/22/24 23:56 06/23/24 00:00 Temperature 37.3 C Pulse Rate 107 H 102 H Respiratory Rate 26 H Blood Pressure 169/59 H Pulse Oximetry 97 Oxygen Delivery Autopap 06/23/24 00:12 06/23/24 04:00 06/23/24 04:00 Temperature 37.4 C 37.0 C Pulse Rate 99 107 H Respiratory Rate 24 H Blood Pressure 160/83 H Pulse Oximetry 96 Oxygen Delivery 06/23/24 07:48 06/23/24 07:54 06/23/24 08:03 Temperature 36.7 C Pulse Rate 97 98 Respiratory Rate 18 Blood Pressure 178/54 H Pulse Oximetry 95 95 Oxygen Delivery Room Air 06/23/24 08:57 06/23/24 12:00 Temperature 36.6 C Pulse Rate 97 81 Respiratory Rate 20 Blood Pressure 172/58 H Pulse Oximetry 97 Oxygen Delivery Exam 2 Const: General: cooperative, comfortable, no acute distress, ill appearing and tired appearing HENMT: Head: normal to inspection, normocephalic and atraumatic Eyes: General: appearance normal, both eyes and all related structures Neck: Neck: normal visual inspection and no lymphadenopathy Resp: Auscultation: diminished lung sounds Cardio: Rate: regular rate Rhythm: regular rhythm GI: Inspection: normal to inspection and distended GI Palp: No abdominal tenderness and Yes Soft to palpation Skin: General skin exam: normal color and no rashes or lesions noted Neuro: General: patient oriented x3 and CN's II-XI intact bilaterally Extrem: General: normal to inspection and full ROM Results Labs 06/23/24 03:12 06/23/24 03:12 Labs: Abnormal lab results 06/22/24 06/23/24 06/23/24 Range/Units 20:21 01:13 03:12 RBC 2.91 L (4.2-5.4) M/mm3 Hgb 9.7 L (12.0-15.0) g/dL Hct 28.9 L (37.0-47.0) % RDW 17.0 H (11.5-14.5) % Plt Count 130 L (150-375) k/mm3 MPV 10.6 H (7.4-10.4) fl Lymph % (Auto) 10.8 L (18.3-44.2) % [place] % (Auto) 15.5 H (2.6-8.5) % Lymph # (Auto) 0.51 L (0.9-3.2) K/mm3 [place] # (Auto) 0.7 H (0.1-0.6) K/mm3 ABG pH 7.458 H (7.350-7.450) ABG pCO2 28.3 L (35.0-45.0) mmHg ABG HCO3 19.6 L (22.0-26.0) mEq/l ABG O2 Content 14.0 L (16.0-22.0) %vol Total Hemoglobin 10.4 L (12.0-18.0) g/dL Sodium 134 L (137-145) mmol/L Potassium 3.3 L (3.4-5.0) mmol/L Anion Gap 3 L (4-12) mmol/L Glucose 136 H (65-110) mg/dL POC Capillary Glucose 133 H (65-105) mg/dl Calcium 7.1 L (8.4-10.2) mg/dL NT-Pro-B Natriuret Pep 338 H (19.9-100) pg/mL Total Protein 6.0 L (6.3-8.2) g/dL Albumin 3.3 L (3.5-5.1) g/dL 06/23/24 06/23/24 Range/Units 07:17 11:30 RBC (4.2-5.4) M/mm3 Hgb (12.0-15.0) g/dL Hct (37.0-47.0) % RDW (11.5-14.5) % Plt Count (150-375) k/mm3 MPV (7.4-10.4) fl Lymph % (Auto) (18.3-44.2) % [place] % (Auto) (2.6-8.5) % Lymph # (Auto) (0.9-3.2) K/mm3 [place] # (Auto) (0.1-0.6) K/mm3 ABG pH (7.350-7.450) ABG pCO2 (35.0-45.0) mmHg ABG HCO3 (22.0-26.0) mEq/l ABG O2 Content (16.0-22.0) %vol Total Hemoglobin (12.0-18.0) g/dL Sodium (137-145) mmol/L Potassium (3.4-5.0) mmol/L Anion Gap (4-12) mmol/L Glucose (65-110) mg/dL POC Capillary Glucose 140 H 141 H (65-105) mg/dl Calcium (8.4-10.2) mg/dL NT-Pro-B Natriuret Pep (19.9-100) pg/mL Total Protein (6.3-8.2) g/dL Albumin (3.5-5.1) g/dL Diabetes panel 06/23/24 Range/Units 03:12 Sodium 134 L (137-145) mmol/L Potassium 3.3 L (3.4-5.0) mmol/L Chloride 106 (98-107) mmol/L Carbon Dioxide 25 (22-30) mmol/L BUN 13 D (7-17) mg/dL Creatinine 0.70 (0.7-1.0) mg/dL Glucose 136 H (65-110) mg/dL Calcium 7.1 L (8.4-10.2) mg/dL AST 17 (14-36) U/L ALT 16 (6-35) U/L Alkaline Phosphatase 40 (38-126) U/L Total Protein 6.0 L (6.3-8.2) g/dL Albumin 3.3 L (3.5-5.1) g/dL Calcium panel 06/23/24 Range/Units 03:12 Calcium 7.1 L (8.4-10.2) mg/dL Albumin 3.3 L (3.5-5.1) g/dL Pituitary panel 06/23/24 Range/Units 03:12 Sodium 134 L (137-145) mmol/L Potassium 3.3 L (3.4-5.0) mmol/L Chloride 106 (98-107) mmol/L Carbon Dioxide 25 (22-30) mmol/L BUN 13 D (7-17) mg/dL Creatinine 0.70 (0.7-1.0) mg/dL Glucose 136 H (65-110) mg/dL Calcium 7.1 L (8.4-10.2) mg/dL Adrenal panel 06/23/24 Range/Units 03:12 Sodium 134 L (137-145) mmol/L Potassium 3.3 L (3.4-5.0) mmol/L Chloride 106 (98-107) mmol/L Carbon Dioxide 25 (22-30) mmol/L BUN 13 D (7-17) mg/dL Creatinine 0.70 (0.7-1.0) mg/dL Glucose 136 H (65-110) mg/dL Calcium 7.1 L (8.4-10.2) mg/dL Total Bilirubin 0.5 (0.2-1.3) mg/dL AST 17 (14-36) U/L ALT 16 (6-35) U/L Alkaline Phosphatase 40 (38-126) U/L Total Protein 6.0 L (6.3-8.2) g/dL Albumin 3.3 L (3.5-5.1) g/dL All other labs normal. Imaging Abdominal x-ray: report reviewed and image reviewed Abdomen CT scan report/results: report reviewed and image reviewed
[2024-06-23] MEDS: CALCIUM GLUC 1,000 MG/NS 50 ML 1,000 MG/50 ML BAG 100 MG IVPB (13:09)
[2024-06-23] MEDS: hydrALAZINE HCL 20 MG/ML VIAL 10 MG IV PUSH (13:10)
[2024-06-23] MEDS: KCL 20 MEQ/SW 100 ML 50 MEQ IVPB (13:45)
--- NOTE | 2024-06-23 16:31 | P.PNIM_ITS ---
Progress Note: A&P Assessment and Plan (1) Myeloma: Code(s): C90.00 - Multiple myeloma not having achieved remission Status: Acute (2) Ileus: Code(s): K56.7 - Ileus, unspecified Status: Acute (3) Port-A-Cath in place: Code(s): Z95.828 - Presence of other vascular implants and grafts Status: Acute Plan MM Neutropenic precautions Started on vancomycin, metronidazole, cefepime prophylactically Nasal MRSA negative DC vancomycin Watch for any abnormal vitals Will consider grant coordinator consultation if needed White cell of 2K today. Afebrile, no sign of infection, hemoglobin 6.5, transfuse 1 PRBC Focal Ileus On metronidazole Will continue monitor Continue clear liquid advanced as tolerated Surgery following Hypertension Continue hydrochlorothiazide 25 mg p.o. q.d. Hydralazine 10 mg IV q.6 hours p.r.n. if blood pressure greater than 160/90 Metoprolol succinate 100 mg p.o. q.d. Follows pain management as an outpatient DVT prophylaxis: Lovenox 40 mg GI prophylaxis: Pantoprazole 40 mg Subjective Date/time seen: 06/23/24 16:31 Interval history: KUB shows no evidence of obstruction or free air. Started on clear liquid and advance as tolerated. Surgery evaluated the patient agrees to continue p.o., PT OT out of bed and continue serial exams. Patient is multiple home medications. Patient is not able to verify the medication. Patient wants to have some medication to sleep. Will consider Benadryl 25 mg IV x 1 if not allergic to it. Review of Systems Review of Systems: All systems reviewed & are unremarkable except as noted in HPI and below Exam Narrative: APPEARANCE: No apparent distress. A&O times 1-2 Head: atraumatic. EYES: EOMI, NOSE: Atraumatic NECK: Trachea midline RESPIRATORY: No increased rate of breathing clear to auscultation CARDIOVASCULAR: RRR,No peripheral edema. ABDOMINAL: Non-distended MUSCULOSKELETAl: No obvious deformities NEURO: Alert. Moving 4/4 extremities SKIN:: Two surgical incisions upper right and upper left chest fromport placement and removal. No signs of infection. no skin breakdown PSYCHIATRIC: Normal affect Const: General: cooperative, comfortable, no acute distress, ill appearing and tired appearing Orientation/consciousness: patient oriented x3 HENMT: Head: normal to inspection, normocephalic and atraumatic Eyes: General: appearance normal, both eyes and all related structures Neck: Neck: normal visual inspection and no lymphadenopathy Resp: Auscultation: diminished lung sounds Cardio: Rate: regular rate Rhythm: regular rhythm GI: Inspection: normal to inspection and distended Skin: General skin exam: normal color and no rashes or lesions noted Neuro: General: patient oriented x3 and CN's II-XI intact bilaterally Extrem: General: normal to inspection and full ROM Objective Data Vital Signs Vital Signs: Vital Signs - 24 hr 06/22/24 17:00 06/22/24 18:42 06/22/24 20:00 Temperature 102.7 F H 102.7 F H 98.4 F Pulse Rate 105 H Respiratory Rate 26 H Blood Pressure 177/56 H Pulse Oximetry 96 Oxygen Delivery 06/22/24 20:00 06/22/24 22:45 06/22/24 23:56 Temperature 99.1 F Pulse Rate 116 H 107 H Respiratory Rate 26 H Blood Pressure 169/59 H Pulse Oximetry 97 Oxygen Delivery Autopap 06/23/24 00:00 06/23/24 00:12 06/23/24 04:00 Temperature 99.4 F 98.6 F Pulse Rate 102 H 99 Respiratory Rate 24 H Blood Pressure 160/83 H Pulse Oximetry 96 Oxygen Delivery 06/23/24 04:00 06/23/24 07:48 06/23/24 07:54 Temperature 98.1 F Pulse Rate 107 H 97 Respiratory Rate 18 Blood Pressure 178/54 H Pulse Oximetry 95 95 Oxygen Delivery Room Air 06/23/24 08:03 06/23/24 08:57 06/23/24 12:00 Temperature 97.8 F Pulse Rate 98 97 81 Respiratory Rate 20 Blood Pressure 172/58 H Pulse Oximetry 97 Oxygen Delivery 06/23/24 12:00 06/23/24 13:52 06/23/24 15:54 Temperature 98.7 F Pulse Rate 81 87 87 Respiratory Rate 24 H Blood Pressure 151/62 H 172/60 H Pulse Oximetry 95 97 Oxygen Delivery Intake/Output Intake/Output: Intake & Output 06/20/24 06/21/24 06/22/24 06/23/24 23:59 23:59 23:59 23:59 Intake Total 3150 2100 400 Output Total 718 069 4395 Balance 2950 1300 -2300 Meds/Results Medications: Active Medications Generic Name Dose Route Start Last Admin Trade Name Freq PRN Reason Stop Dose Admin Acetaminophen 650 mg 06/22/24 13:55 06/23/24 13:10 Acetaminophen 325 Mg Tablet PO 650 mg Q4H PRN Administration Mild Pain (1-3) or Fever Dexamethasone 20 mg 06/26/24 09:00 Dexamethasone 4 Mg Tablet PO Mo@0900 EZRA Dextrose 12.5 gm 06/22/24 18:54 Dextrose 50% 25 Gm/50 Ml Syringe IV PUSH PRN PRN Hypoglycemia Protocol Enoxaparin Sodium 40 mg 06/23/24 09:00 06/23/24 08:57 Enoxaparin 40 Mg/0.4 Ml Syringe SUB-Q 40 mg DAILY EZRA Administration Glucagon 1 mg 06/22/24 18:54 Glucagon For Inj 1 Mg Vial IM PRN PRN Hypoglycemia Protocol Glucose 15 gm 06/22/24 18:54 Glucose Oral Gel 15 Gm Of Glucse In 37.5 Gm Tube PO PRN PRN Hypoglycemia Protocol Hydralazine HCl 10 mg 06/23/24 11:54 06/23/24 13:10 Hydralazine Hcl 20 Mg/Ml Vial IV PUSH 10 mg Q8H PRN Administration Blood Pressure - High Hydrochlorothiazide 25 mg 06/23/24 09:00 06/23/24 08:58 Hydrochlorothiazide 25 Mg Tablet BY MOUTH 25 mg DAILY EZRA Administration Metronidazole 500 mg in 100 mls @ 100 mls/hr 06/22/24 06:00 06/23/24 13:40 Flagyl 500 Mg/Iso Soln 100 Ml IVPB 100 mls/hr Q8HR EZRA Administration Cefepime HCl 2 gm in 50 mls @ 100 mls/hr 06/22/24 09:00 06/23/24 08:30 Maxipime 2 Gm/Ns 50 Ml IVPB 100 mls/hr Q12HR EZRA Administration Dextrose 1,000 mls @ 100 mls/hr 06/22/24 18:54 Dextrose 5% 1,000 Ml IVPB PRN PRN Hypoglycemia Protocol Ibuprofen 600 mg 06/23/24 00:21 Ibuprofen 600 Mg Tablet PO Q6H PRN Cramping Insulin Aspart 2 - 5 units 06/23/24 08:00 06/23/24 08:58 Insulin Aspart (*Bkc) 100 Units/Ml SUB-Q Not Given TIDWM EZRA Protocol Levothyroxine Sodium 50 mcg 06/23/24 06:30 06/23/24 06:44 Levothyroxine Sodium 50 Mcg Tablet PO 50 mcg DAILY@0630 EZRA Administration Lidocaine 1 patch 06/23/24 09:00 06/23/24 08:58 Lidocaine 5% Patch TOPICAL 1 patch DAILY EZRA Administration Lidocaine/Prilocaine 1 each 06/22/24 18:23 Lidocaine/Prilocaine Cream 2.5-2.5% Tube TOPICAL PRN PRN Port Access Melatonin 5 mg 06/22/24 23:40 06/23/24 00:11 Melatonin 5 Mg Tablet PO 5 mg HS EZRA Administration Metoprolol Succinate 100 mg 06/23/24 09:00 06/23/24 08:57 Metoprolol Succinate Ext Rel 100 Mg Tabcr PO 100 mg DAILY EZRA Administration Miscellaneous Information 1 each 06/22/24 00:01 Nonformulary Drug (Lenalidomide [Revlimid] 15 Mg Capsule)Can Patient Use From Home? XX 07/22/24 00:00 [facility] Miscellaneous Information 1 each 06/22/24 00:01 Nonformulary Drug (Metronidazole 1 % Gel With Pump)Can Patient Use From Home? XX 07/22/24 00:00 [facility] Miscellaneous Information 1 each 06/22/24 00:01 Nonformulary Drug (Milnacipran [Savella] 25 Mg Tablet)Can Patient Use From Home? XX 07/22/24 00:00 [facility] Montelukast Sodium 10 mg 06/23/24 09:00 06/23/24 08:56 Montelukast Sodium 10 Mg Tablet PO 10 mg DAILY [facility] Administration Multi-Ingred Cream/Lotion/Oil/Oint 1 applic 06/22/24 21:00 Mineral Oil/White Petrolatum Ointment EACH EYE Q12H PRN Dry Eyes Multivitamins Therapeutic 1 tablet 06/23/24 09:00 06/23/24 08:56 Multivitamins Therapeutic Tab (*Bkc) PO 1 tablet DAILY [facility] Administration Non-Formulary Medication 15 mg 06/23/24 09:00 Lenalidomide [Revlimid] PO 07/23/24 08:59 DAILY EZRA Non-Formulary Medication 0 applic 06/22/24 18:30 Metronidazole XX 07/22/24 18:29 .COMPLEX EZRA Non-Formulary Medication 25 mg 06/23/24 09:00 Milnacipran [Savella] PO 07/23/24 08:59 DAILY EZRA Ondansetron HCl 4 mg 06/22/24 10:19 Ondansetron Inj 4 Mg/2 Ml Vial IV PUSH Q6H PRN Nausea And Vomiting Ondansetron HCl 4 mg 06/22/24 17:21 06/23/24 01:11 Ondansetron Inj 4 Mg/2 Ml Vial IV PUSH 4 mg Q4H PRN Administration Nausea And Vomiting Ondansetron HCl 8 mg 06/22/24 19:11 Ondansetron Hcl Odt 4 Mg Tablet PO Q8H PRN Nausea And Vomiting Pantoprazole Sodium 40 mg 06/23/24 09:00 06/23/24 08:57 Pantoprazole Sodium Iv 40 Mg Vial IV PUSH 40 mg QAM EZRA Administration Pantoprazole Sodium 40 mg 06/23/24 09:00 06/23/24 08:58 Pantoprazole Sodium Iv 40 Mg Vial IV PUSH Not Given QAM EZRA Perflutren Lipid Microsphere 0 ml 06/23/24 11:54 Perflutren Lipid Microspheres 1.5 Ml Vial Diluted To 10 Ml Total Volume IV PUSH 06/26/24 11:56 ONCE PRN adequate visualization Protocol Ramipril 10 mg 06/23/24 09:00 06/23/24 08:56 Ramipril 5 Mg Capsule PO 10 mg DAILY EZRA Administration Radiology Results: ITS Impressions Head CT 06/21/24 20:54 IMPRESSION: No acute intracranial process. Chest/Abdomen/Pelvis CT 06/21/24 20:56 IMPRESSION: Mild esophagitis/gastritis. Mild dilation of a loop of jejunum in the mid abdomen, presumably secondary to focal ileus. Early obstruction not excluded. Multiple pancreatic cysts measuring up to 1.2 cm, demonstrating interval growth since 08/10/2020 examination. Consider follow-up with contrast enhanced MRI or pancreas protocol CT in one year, depending on the patient's overall health and preferences and if a surgical candidate. Severe disc space narrowing at L3-4 with erosive changes, may be secondary to osteomyelitis/discitis, neuropathic changes, or inflammatory arthropathy. Consider MR lumbar spine without and with contrast. Lumbar Spine MRI 06/22/24 13:57 IMPRESSION: 1. Severe lumbar spondylosis, advanced with Modic type III degenerative endplate changes at L3-L4. No findings to suggest discitis or osteomyelitis. 2. Diffuse heterogeneous marrow signal which could represent combination of red and yellow marrow or be related to reported known multiple myeloma. Chest X-Ray 06/22/24 21:31 IMPRESSION: Left basilar atelectasis versus pneumonia. Abdomen X-Ray 06/23/24 05:50 Impression: Nonspecific bowel gas pattern. Labs Labs: Laboratory Results - last 24 hr 06/22/24 06/22/24 06/23/24 18:28 20:21 01:13 WBC RBC Hgb Hct MCV MCH MCHC RDW Plt Count MPV Immature Gran % (Auto) Neut % (Auto) Lymph % (Auto) Bee % (Auto) Eos % (Auto) Baso % (Auto) Lymph # (Auto) Bee # (Auto) Eos # (Auto) Baso # (Auto) Abs Immat Gran (auto) Absolute Neuts (auto) Absolute Nucleated RBC Nucleated RBC % % Immature Plt Fraction Puncture Site Right radial ABG pH 7.458 H ABG pCO2 28.3 L ABG pO2 86.5 ABG PO2/FiO2 Ratio 4.12 ABG HCO3 19.6 L ABG O2 Saturation 97.1 ABG O2 Content 14.0 L ABG Base Excess -3.3 A-a Gradient 29.3 Oxyhemoglobin 95.1 Total Hemoglobin 10.4 L O2 Delivery Device Room air O2 Liters/Min 0.0 FiO2 21 Sodium Potassium Chloride Carbon Dioxide Anion Gap BUN Creatinine Estim Creat Clear Calc Estimated GFR Glucose POC Capillary Glucose 133 H Lactic Acid 1.8 Calcium Magnesium Total Bilirubin AST ALT Alkaline Phosphatase NT-Pro-B Natriuret Pep Total Protein Albumin 06/23/24 06/23/24 06/23/24 03:12 07:17 11:30 WBC 4.7 RBC 2.91 L Hgb 9.7 L Hct 28.9 L MCV 99.3 MCH 33.3 MCHC 33.6 RDW 17.0 H Plt Count 130 L MPV 10.6 H Immature Gran % (Auto) 0.2 Neut % (Auto) 72.0 Lymph % (Auto) 10.8 L Bee % (Auto) 15.5 H Eos % (Auto) 1.1 Baso % (Auto) 0.4 Lymph # (Auto) 0.51 L Bee # (Auto) 0.7 H Eos # (Auto) 0.1 Baso # (Auto) 0.0 Abs Immat Gran (auto) 0.01 Absolute Neuts (auto) 3.4 Absolute Nucleated RBC 0.000 Nucleated RBC % 0.0 % Immature Plt Fraction 3.0 Puncture Site ABG pH ABG pCO2 ABG pO2 ABG PO2/FiO2 Ratio ABG HCO3 ABG O2 Saturation ABG O2 Content ABG Base Excess A-a Gradient Oxyhemoglobin Total Hemoglobin O2 Delivery Device O2 Liters/Min FiO2 Sodium 134 L Potassium 3.3 L Chloride 106 Carbon Dioxide 25 Anion Gap 3 L BUN 13 D Creatinine 0.70 Estim Creat Clear Calc 62 Estimated GFR > 60 Glucose 136 H POC Capillary Glucose 140 H 141 H Lactic Acid 1.2 Calcium 7.1 L Magnesium 1.7 Total Bilirubin 0.5 AST 17 ALT 16 Alkaline Phosphatase 40 NT-Pro-B Natriuret Pep 338 H Total Protein 6.0 L Albumin 3.3 L Hospitalist MIPS Advance Care Plan I have confirmed that the patient's Advanced Care Plan is present, code status is documented, or surrogate decision maker is listed in patient medical record.: Yes Medication Reconciliation I have utilized all available resources to obtain, update and review the patients current medications (includes all prescriptions, OTC, herbals, cannabis, and nutritional supplements).: Yes
[2024-06-23 16:33] LABS: Glucose Point of Care 122 mg/dl (65-105)
[2024-06-23 17:32] LABS: Magnesium 1.7 mg/dL (1.6-2.3); Phosphorus 3.1 mg/dL (2.5-4.5); Potassium 4.3 mmol/L (3.4-5.0)
[2024-06-23 20:43] LABS: Glucose Point of Care 110 mg/dl (65-105)
[2024-06-23] MEDS: diphenhydrAMINE HCl INJ 50 MG/ML VIAL 25 MG IV PUSH (20:53)
[2024-06-23] MEDS: MORPHINE SULFATE (*CRX) 2 MG/ML INJ 1 MG IV PUSH (20:54)
[2024-06-24] VITALS (11 sets, daily range): BP systolic 117–177; BP diastolic 59–84; PULSE 73–98; RESP 12–18; TEMP 36.2–36.7; O2SAT 94–98
--- NOTE | 2024-06-24 | ECHO_ITS ---
Patient Info Name: Sloane Elise Age: 83 years : 1940 Gender: Female Ht: 65 in Wt: 225 lbs BSA: 2.21 m2 HR: 85 bpm BP: 161 / 61 mmHg Technical Quality: Good Exam Date: 06/24/2024 11:02 AM Exam Location: Echo Lab Exam Room: [facility] Patient Status: Inpatient Admit Date: 06/21/2024 Staff Ordering Physician: Tim Kumari MD Milk Treater: Cindy Perez RDCS Attending Provider: Amado Schroeder MD Referring Physician: Montez KUMARI Exam Type: CA echo doppler color flow Study Info Complete two-dimensional, color flow and Doppler transthoracic echocardiogram is performed. Summary 1. Complete two-dimensional, color flow and Doppler transthoracic echocardiogram is performed. 2. There is mild pulmonic regurgitation. 3. Left ventricular chamber dimension is normal. 4. Left ventricular systolic function is normal, estimated at 55-60%. 5. There is no increased left ventricular wall thickness. 6. Left ventricular wall motion is normal. 7. The left ventricular diastolic function is grade I diastolic dysfunction. 8. Right ventricular chamber dimension is enlarged. 9. Right ventricular systolic function is normal. 10. There is mild mitral valve regurgitation. 11. There is mild tricuspid valve regurgitation. Left Ventricle Left ventricular chamber dimension is normal. Left ventricular systolic function is normal, estimated at 55-60%. There is no increased left ventricular wall thickness. Left ventricular wall motion is normal. The left ventricular diastolic function is grade I diastolic dysfunction. Right Ventricle Right ventricular chamber dimension is enlarged. Right ventricular systolic function is normal. Left Atria Left atrial chamber dimension is normal. Right Atria Right atrial chamber dimension is normal. Aortic Valve The aortic valve is trileaflet. There is no aortic valve sclerosis. There is no aortic valve stenosis. There is no aortic valve regurgitation. Pulmonic Valve The pulmonic valve is normal. There is no pulmonic valve stenosis. There is mild pulmonic regurgitation. Mitral Valve The mitral valve has calcified leaflets. There is no mitral valve stenosis. There is mild mitral valve regurgitation. Tricuspid Valve The tricuspid valve leaflets are normal. There is no significant tricuspid valve stenosis. There is mild tricuspid valve regurgitation. Mild pulmonary hypertension, estimated pulmonary arterial systolic pressure is 55-65 mmhg. Pericardium/Pleural The pericardium appears normal. There is no pericardial effusion. Inferior Vena Cava Inferior vena cava is not well visualized. Aorta The aortic root size at the sinus of Valsalva is dilated. The prox ascending aorta size is borderline dilated. Left Ventricular Outflow Tract Name Value Normal LVOT 2D LVOT Diameter 2.0 cm LVOT Doppler LVOT Peak Gradient 6 mmHg LVOT Mean Gradient 3 mmHg LVOT VTI 25 cm LVOT VTI/AV VTI Ratio 0.9 LVOT Stroke Volume 78 ml LVOT CO 6.2 l/min LVOT CI 2.8 l/min/m2 Pulmonic Valve Name Value Normal PV Doppler PV Peak Gradient 3 mmHg PV Regurgitation Doppler SC Peak End Diastolic Velocity 117 cm/s Mitral Valve Name Value Normal MV Doppler MV Peak Gradient 6 mmHg MV Mean Gradient 2 mmHg MV Decel [place] 330 cm/s2 MV PHT 78 ms MV Area (PHT) 2.8 cm2 4.0-5.0 MV Area (Cont Eq VTI) 2.4 cm2 MV Regurgitation Doppler MR Peak Gradient 124 mmHg MV Diastolic Function MV E Peak Velocity 89 cm/s MV A Peak Velocity 111 cm/s MV E/A 0.8 MV Decel Time 270 ms MV Annular TDI MV E/e' (Septal) 15.3 <=8.0 MV E/e' (Lateral) 11.2 <=8.0 MV E/e' (Average) 13.3 Tricuspid Valve Name Value Normal TV Regurgitation Doppler TR Peak Velocity 369 cm/s TR Peak Gradient 50 mmHg Aortic Valve Name Value Normal AV Doppler AV Peak Velocity 131 cm/s AV Peak Gradient 7 mmHg AV Mean Gradient 4 mmHg AV VTI 27 cm AV Area (Cont Eq VTI) 2.9 cm2 >=3.0 AV Area (Cont Eq Evaristo) 2.7 cm2 AV Regurgitation 2D LVOT Area 3.1 cm2 Ventricles Name Value Normal LV Dimensions 2D/MM IVS Diastolic Thickness (2D) 0.8 cm 0.6-1.0 LVID Diastole (2D) 5.5 cm 3.8-5.2 LVIW Diastolic Thickness (2D) 0.8 cm 0.6-0.9 LVID Systole (2D) 4.0 cm 2.2-3.5 LVOT Diameter 2.0 cm LV Mass (2D Cubed) 162.36 g 67.00-162.00 LV Mass Index (2D Cubed) 73 g/m2 43-95 Relative Wall Thickness (2D) 0.29 LV Fractional Shortening/Ejection Fraction 2D/MM LV Fractional Shortening (2D) 27 % 27-45 LV EF (2D Teicholz) 52 % 54-74 LV Diastolic Volume (4C MOD) 132 ml LV EF (4C MOD) 67 % LV Diastolic Length (4C) 7.9 cm LV Systolic Length (4C) 6.7 cm LV Stroke Volume (4C MOD) 88 ml Atria Name Value Normal LA Dimensions LA Volume (4C A-L) 69 ml RA Dimensions RA Area (4C) 17.6 cm2 <=18.0 Report Signatures
[2024-06-24] MEDS: metroNIDAZOLE 500 MG/ISO 100ML 500 MG/100 ML BAG 100 MG IVPB ×3 (06:11→22:35)
[2024-06-24] MEDS: LEVOTHYROXINE SODIUM 50 MCG TABLET PO (06:11)
[2024-06-24 07:33] LABS: Basophils Percent Auto 0.8 % (0.2-1.2); Eosinophils Absolute Auto 0.3 K/mm3 (0-0.3); Eosinophils Percent Auto 5.4 % (0-4.4); Hematocrit 28.9 % (37.0-47.0); Hemoglobin 9.4 g/dL (12.0-15.0); Immature Granulocyte Absolute 0.01 K/mm3 (0.00-0.031); Immature Granulocyte Percent A 0.2 % (0-0.5); Lymphocytes Absolute Auto 0.76 K/mm3 (0.9-3.2); Lymphocytes Percent Auto 14.7 % (18.3-44.2); Mean Corpuscular HGB Conc 32.5 g/dl (32-36); Mean Corpuscular Hemoglobin 32.3 pg (26-34); Mean Corpuscular Volume 99.3 fl (80-100); Mean Platelet Volume 11.2 fl (7.4-10.4); Monocytes Absolute Auto 0.7 K/mm3 (0.1-0.6); Monocytes Percent Auto 14.3 % (2.6-8.5); Neutrophils Absolute Auto 3.4 K/mm3 (1.3-6.7); Neutrophils Percent Auto 64.6 % (45.5-73.1); Platelet Count Result 124 k/mm3 (150-375); Red Blood Count 2.91 M/mm3 (4.2-5.4); Red Cell Distribution Width 16.8 % (11.5-14.5); White Blood Count 5.2 K/mm3 (4.5-10.0)
[2024-06-24 07:47] LABS: Alanine Aminotransferase 15 U/L (6-35); Albumin Level 3.3 g/dL (3.5-5.1); Alkaline Phosphatase 34 U/L (38-126); Anion Gap 4 mmol/L (4-12); Aspartate Amino Transferase 22 U/L (14-36); Bilirubin,Total 0.7 mg/dL (0.2-1.3); Blood Urea Nitrogen 15 mg/dL (7-17); Carbon Dioxide 23 mmol/L (22-30); Chloride 106 mmol/L (98-107); Estimated CRCL calculation 55 ml/min; Estimated Glomerular Filt Rate > 60; Glucose 106 mg/dL (65-110); Magnesium 1.8 mg/dL (1.6-2.3); Potassium 3.7 mmol/L (3.4-5.0); Sodium 133 mmol/L (137-145)
[2024-06-24 08:40] LABS: Glucose Point of Care 124 mg/dl (65-105)
[2024-06-24] MEDS: CEFEPIME 2 GM/NS 50 ML 2 GM/50 ML BAG IVPB ×2 (09:11→21:25)
[2024-06-24] MEDS: ENOXAPARIN 40 MG/0.4 ML SYRINGE SUB-Q (09:11)
[2024-06-24] MEDS: MULTIVITAMINS THERAPEUTIC TAB (*BKC) 1 TABLET PO (09:14)
[2024-06-24] MEDS: MONTELUKAST SODIUM 10 MG TABLET PO (09:14)
[2024-06-24] MEDS: METOPROLOL SUCCINATE EXT REL 100 MG TABCR PO (09:14)
[2024-06-24] MEDS: hydroCHLOROthiazide 25 MG TABLET BY MOUTH (09:14)
[2024-06-24] MEDS: LIDOCAINE 5% PATCH 1 PATCH TOPICAL (09:16)
[2024-06-24] MEDS: PANTOPRAZOLE 40 MG TABLET PO (10:44)
--- NOTE | 2024-06-24 11:01 | PM.PNGS ---
Progress Note: A&P Assessment and Plan (1) Ileus: Code(s): K56.7 - Ileus, unspecified Status: Acute Assessment and Plan: resolved, dennis diet, + bowel fxn, exam benign, no acute surgical issues, will s/o, call c ?s, issues Subjective Subjective Date/Time Seen: 06/24/24 11:01 Interval history: feels much improved, mental status back to baseline, dennis diet, + bowel fxn Review of Systems Review of Systems: All systems reviewed & are unremarkable except as noted in HPI and below Exam Const: General: cooperative, comfortable and no acute distress Resp: Auscultation: clear to auscultation bilaterally Cardio: Rate: regular rate Rhythm: regular rhythm GI: Inspection: normal to inspection and non-distended GI Palp: No abdominal tenderness and Yes Soft to palpation Objective Data Vital Signs Vital Signs: Vital Signs - 24 hr 06/23/24 12:00 06/23/24 12:00 06/23/24 12:02 Temperature 36.6 C Pulse Rate 81 81 80 Respiratory Rate 20 Blood Pressure 172/58 H Pulse Oximetry 97 Oxygen Delivery 06/23/24 13:52 06/23/24 15:00 06/23/24 15:54 Temperature 37.1 C Pulse Rate 87 87 Respiratory Rate 24 H Blood Pressure 151/62 H 172/60 H Pulse Oximetry 95 97 Oxygen Delivery Room Air 06/23/24 16:03 06/23/24 20:00 06/23/24 20:00 Temperature 36.6 C Pulse Rate 84 86 Respiratory Rate 22 H Blood Pressure 154/62 H Pulse Oximetry 97 Oxygen Delivery Room Air 06/23/24 20:02 06/24/24 00:00 06/24/24 00:00 Temperature 36.3 C L Pulse Rate 92 89 84 Respiratory Rate 18 Blood Pressure 136/59 L Pulse Oximetry 96 Oxygen Delivery 06/24/24 03:26 06/24/24 04:00 06/24/24 08:00 Temperature 36.7 C 36.4 C L Pulse Rate 85 77 76 Respiratory Rate 18 18 Blood Pressure 161/61 H 177/61 H Pulse Oximetry 95 97 Oxygen Delivery 06/24/24 08:02 06/24/24 09:14 Temperature Pulse Rate 80 83 Respiratory Rate Blood Pressure Pulse Oximetry Oxygen Delivery Intake/Output Intake/Output: Intake & Output 0106/22/24 06/23/24 06/24/24 23:59 23:59 23:59 23:59 Intake Total 3150 2100 1408 830 Output Total 566 609 7984 600 Balance 2950 1300 -1592 230 Meds/Results Medications: Active Medications Generic Name Dose Route Start Last Admin Trade Name Freq PRN Reason Stop Dose Admin Acetaminophen 650 mg 06/22/24 13:55 06/23/24 13:10 Acetaminophen 325 Mg Tablet PO 650 mg Q4H PRN Administration Mild Pain (1-3) or Fever Dexamethasone 20 mg 06/26/24 09:00 Dexamethasone 4 Mg Tablet PO Mo@0900 EZRA Dextrose 12.5 gm 06/22/24 18:54 Dextrose 50% 25 Gm/50 Ml Syringe IV PUSH PRN PRN Hypoglycemia Protocol Diphenhydramine HCl 25 mg 06/23/24 18:10 06/23/24 20:53 Diphenhydramine Hcl Inj 50 Mg/Ml Vial IV PUSH 25 mg Q4H PRN Administration Itching Enoxaparin Sodium 40 mg 06/23/24 09:00 06/24/24 09:11 Enoxaparin 40 Mg/0.4 Ml Syringe SUB-Q 40 mg DAILY EZRA Administration Glucagon 1 mg 06/22/24 18:54 Glucagon For Inj 1 Mg Vial IM PRN PRN Hypoglycemia Protocol Glucose 15 gm 06/22/24 18:54 Glucose Oral Gel 15 Gm Of Glucse In 37.5 Gm Tube PO PRN PRN Hypoglycemia Protocol Hydralazine HCl 10 mg 06/23/24 11:54 06/23/24 13:10 Hydralazine Hcl 20 Mg/Ml Vial IV PUSH 10 mg Q8H PRN Administration Blood Pressure - High Hydrochlorothiazide 25 mg 06/23/24 09:00 06/24/24 09:14 Hydrochlorothiazide 25 Mg Tablet BY MOUTH 25 mg DAILY EZRA Administration Metronidazole 500 mg in 100 mls @ 100 mls/hr 06/22/24 06:00 06/24/24 06:11 Flagyl 500 Mg/Iso Soln 100 Ml IVPB 100 mls/hr Q8HR EZRA Administration Cefepime HCl 2 gm in 50 mls @ 100 mls/hr 06/22/24 09:00 06/24/24 09:11 Maxipime 2 Gm/Ns 50 Ml IVPB 100 mls/hr Q12HR EZRA Administration Dextrose 1,000 mls @ 100 mls/hr 06/22/24 18:54 Dextrose 5% 1,000 Ml IVPB PRN PRN Hypoglycemia Protocol Ibuprofen 600 mg 06/23/24 00:21 Ibuprofen 600 Mg Tablet PO Q6H PRN Cramping Insulin Aspart 2 - 5 units 06/23/24 08:00 06/24/24 09:11 Insulin Aspart (*Bkc) 100 Units/Ml SUB-Q Not Given TIDWM [facility] Protocol Levothyroxine Sodium 50 mcg 06/23/24 06:30 06/24/24 06:11 Levothyroxine Sodium 50 Mcg Tablet PO 50 mcg DAILY@0630 [facility] Administration Lidocaine 1 patch 06/23/24 09:00 06/24/24 09:16 Lidocaine 5% Patch TOPICAL 1 patch DAILY [facility] Administration Lidocaine/Prilocaine 1 each 06/22/24 18:23 Lidocaine/Prilocaine Cream 2.5-2.5% Tube TOPICAL PRN PRN Port Access Melatonin 5 mg 06/22/24 23:40 06/23/24 20:54 Melatonin 5 Mg Tablet PO 5 mg HS [facility] Administration Metoprolol Succinate 100 mg 06/23/24 09:00 06/24/24 09:14 Metoprolol Succinate Ext Rel 100 Mg Tabcr PO 100 mg DAILY [facility] Administration Miscellaneous Information 1 each 06/22/24 00:01 Nonformulary Drug (Lenalidomide [Revlimid] 15 Mg Capsule)Can Patient Use From Home? XX 07/22/24 00:00 CLARIFY [facility] Miscellaneous Information 1 each 06/22/24 00:01 Nonformulary Drug (Metronidazole 1 % Gel With Pump)Can Patient Use From Home? XX 07/22/24 00:00 CLARIFY [facility] Miscellaneous Information 1 each 06/22/24 00:01 Nonformulary Drug (Milnacipran [Savella] 25 Mg Tablet)Can Patient Use From Home? XX 07/22/24 00:00 CLARIFY [facility] Montelukast Sodium 10 mg 06/23/24 09:00 06/24/24 09:14 Montelukast Sodium 10 Mg Tablet PO 10 mg DAILY [facility]ZRA Administration Morphine Sulfate 1 mg 06/23/24 18:10 06/23/24 20:54 Morphine Sulfate (*Crx) 2 Mg/Ml Inj IV PUSH 1 mg Q4H PRN Administration Pain Rated 7-10 Multi-Ingred Cream/Lotion/Oil/Oint 1 applic 06/22/24 21:00 Mineral Oil/White Petrolatum Ointment EACH EYE Q12H PRN Dry Eyes Multivitamins Therapeutic 1 tablet 06/23/24 09:00 06/24/24 09:14 Multivitamins Therapeutic Tab (*Bkc) PO 1 tablet DAILY EZRA Administration Non-Formulary Medication 15 mg 06/23/24 09:00 Lenalidomide [Revlimid] PO 07/23/24 08:59 DAILY EZRA Non-Formulary Medication 0 applic 06/22/24 18:30 Metronidazole XX 07/22/24 18:29 .COMPLEX EZRA Non-Formulary Medication 25 mg 06/23/24 09:00 Milnacipran [Savella] PO 07/23/24 08:59 DAILY EZRA Ondansetron HCl 4 mg 06/22/24 10:19 Ondansetron Inj 4 Mg/2 Ml Vial IV PUSH Q6H PRN Nausea And Vomiting Ondansetron HCl 4 mg 06/22/24 17:21 06/23/24 01:11 Ondansetron Inj 4 Mg/2 Ml Vial IV PUSH 4 mg Q4H PRN Administration Nausea And Vomiting Ondansetron HCl 8 mg 06/22/24 19:11 Ondansetron Hcl Odt 4 Mg Tablet PO Q8H PRN Nausea And Vomiting Pantoprazole Sodium 40 mg 06/24/24 10:35 06/24/24 10:44 Pantoprazole 40 Mg Tablet PO 40 mg QAM EZRA Administration Perflutren Lipid Microsphere 0 ml 06/23/24 11:54 Perflutren Lipid Microspheres 1.5 Ml Vial Diluted To 10 Ml Total Volume IV PUSH 06/26/24 11:56 ONCE PRN adequate visualization Protocol Ramipril 10 mg 06/23/24 09:00 06/24/24 09:14 Ramipril 5 Mg Capsule PO 10 mg DAILY EZRA Administration Radiology Results: ITS Impressions Head CT 06/21/24 20:54 IMPRESSION: No acute intracranial process. Chest/Abdomen/Pelvis CT 06/21/24 20:56 IMPRESSION: Mild esophagitis/gastritis. Mild dilation of a loop of jejunum in the mid abdomen, presumably secondary to focal ileus. Early obstruction not excluded. Multiple pancreatic cysts measuring up to 1.2 cm, demonstrating interval growth since 08/10/2020 examination. Consider follow-up with contrast enhanced MRI or pancreas protocol CT in one year, depending on the patient's overall health and preferences and if a surgical candidate. Severe disc space narrowing at L3-4 with erosive changes, may be secondary to osteomyelitis/discitis, neuropathic changes, or inflammatory arthropathy. Consider MR lumbar spine without and with contrast. Lumbar Spine MRI 06/22/24 13:57 IMPRESSION: 1. Severe lumbar spondylosis, advanced with Modic type III degenerative endplate changes at L3-L4. No findings to suggest discitis or osteomyelitis. 2. Diffuse heterogeneous marrow signal which could represent combination of red and yellow marrow or be related to reported known multiple myeloma. Chest X-Ray 06/22/24 21:31 IMPRESSION: Left basilar atelectasis versus pneumonia. Abdomen X-Ray 06/23/24 05:50 Impression: Nonspecific bowel gas pattern. Labs Labs: Laboratory Results - last 24 hr 06/23/24 06/23/24 06/23/24 11:30 16:28 17:11 WBC RBC Hgb Hct MCV MCH MCHC RDW Plt Count MPV Immature Gran % (Auto) Neut % (Auto) Lymph % (Auto) [place] % (Auto) Eos % (Auto) Baso % (Auto) Lymph # (Auto) [place] # (Auto) Eos # (Auto) Baso # (Auto) Abs Immat Gran (auto) Absolute Neuts (auto) Absolute Nucleated RBC Nucleated RBC % % Immature Plt Fraction Sodium Potassium 4.3 Chloride Carbon Dioxide Anion Gap BUN Creatinine Estim Creat Clear Calc Estimated GFR Glucose POC Capillary Glucose 141 H 122 H Calcium Phosphorus 3.1 Magnesium 1.7 Total Bilirubin AST ALT Alkaline Phosphatase Total Protein Albumin 06/23/24 06/24/24 06/24/24 19:42 06:47 08:11 WBC 5.2 RBC 2.91 L Hgb 9.4 L Hct 28.9 L MCV 99.3 MCH 32.3 MCHC 32.5 RDW 16.8 H Plt Count 124 L MPV 11.2 H Immature Gran % (Auto) 0.2 Neut % (Auto) 64.6 Lymph % (Auto) 14.7 L [place] % (Auto) 14.3 H Eos % (Auto) 5.4 H Baso % (Auto) 0.8 Lymph # (Auto) 0.76 L [place] # (Auto) 0.7 H Eos # (Auto) 0.3 Baso # (Auto) 0.0 Abs Immat Gran (auto) 0.01 Absolute Neuts (auto) 3.4 Absolute Nucleated RBC 0.000 Nucleated RBC % 0.0 % Immature Plt Fraction 4.0 Sodium 133 L Potassium 3.7 Chloride 106 Carbon Dioxide 23 Anion Gap 4 BUN 15 Creatinine 0.80 Estim Creat Clear Calc 55 Estimated GFR > 60 Glucose 106 POC Capillary Glucose 110 H 124 H Calcium 7.0 L Phosphorus Magnesium 1.8 Total Bilirubin 0.7 AST 22 ALT 15 Alkaline Phosphatase 34 L Total Protein 6.0 L Albumin 3.3 L
[2024-06-24 12:04] LABS: Glucose Point of Care 123 mg/dl (65-105)
--- NOTE | 2024-06-24 13:10 | PCPTNOTE ---
Patient just got her lunch and would like to eat her meal first. Physical therapy will attempt to see again as time allows.
--- NOTE | 2024-06-24 14:20 | PHAR ---
RX [id number] [facility] IDENTIFIED TO CONTAIN Drug Name:?Savella Color:?White Shape:?Rampart Imprint:??FL?;?25 Imprint Code Description:??The tablet is debossed with FL on one side and 25 on the reverse.
--- NOTE | 2024-06-24 14:24 | PHAR ---
RX [phone] [facility] IDENTIFIED TO CONTAIN BOTTLE OF METRONIDAZOLE 1% GEL PUMP 55 GM BOTTLE
--- NOTE | 2024-06-24 15:27 | PM.IMPN ---
Progress Note: A&P Assessment and Plan (1) Myeloma: Code(s): C90.00 - Multiple myeloma not having achieved remission Status: Acute (2) Ileus: Code(s): K56.7 - Ileus, unspecified Status: Acute (3) Port-A-Cath in place: Code(s): Z95.828 - Presence of other vascular implants and grafts Status: Acute Plan MM Neutropenic precautions Started on cefepime prophylactically Nasal MRSA negative Watch for any abnormal vitals Ordered Hematology consult Focal Ileus On metronidazole Will continue monitor Continue clear liquid advanced as tolerated Surgery following Hypertension Continue hydrochlorothiazide 25 mg p.o. q.d. Hydralazine 10 mg IV q.6 hours p.r.n. if blood pressure greater than 160/90 Metoprolol succinate 100 mg p.o. q.d. Follows pain management as an outpatient DVT prophylaxis: Lovenox 40 mg GI prophylaxis: Pantoprazole 40 mg Subjective Date/time seen: 06/24/24 15:27 Interval history: Patient is currently doing well compared to yesterday. Patient has some questions about her cancer medication. Consulted Hematology. Patient had a bowel movement this morning. Review of Systems Review of Systems: All systems reviewed & are unremarkable except as noted in HPI and below Exam Narrative: APPEARANCE: No apparent distress. A&O times 1-2 Head: atraumatic. EYES: EOMI, NOSE: Atraumatic NECK: Trachea midline RESPIRATORY: No increased rate of breathing clear to auscultation CARDIOVASCULAR: RRR,No peripheral edema. ABDOMINAL: Non-distended MUSCULOSKELETAl: No obvious deformities NEURO: Alert. Moving 4/4 extremities SKIN:: Two surgical incisions upper right and upper left chest fromport placement and removal. No signs of infection. no skin breakdown PSYCHIATRIC: Normal affect Const: General: cooperative, comfortable, no acute distress, ill appearing and tired appearing Orientation/consciousness: patient oriented x3 HENMT: Head: normal to inspection, normocephalic and atraumatic Eyes: General: appearance normal, both eyes and all related structures Neck: Neck: normal visual inspection and no lymphadenopathy Resp: Auscultation: diminished lung sounds Cardio: Rate: regular rate Rhythm: regular rhythm GI: Inspection: normal to inspection and distended Skin: General skin exam: normal color and no rashes or lesions noted Neuro: General: patient oriented x3 and CN's II-XI intact bilaterally Extrem: General: normal to inspection and full ROM Objective Data Vital Signs Vital Signs: Vital Signs - 24 hr 06/23/24 15:54 06/23/24 16:03 06/23/24 20:00 Temperature 98.7 F 97.8 F Pulse Rate 87 84 86 Respiratory Rate 24 H 22 H Blood Pressure 172/60 H 154/62 H Pulse Oximetry 97 97 Oxygen Delivery 06/23/24 20:00 06/23/24 20:02 06/24/24 00:00 Temperature 97.3 F L Pulse Rate 92 89 Respiratory Rate 18 Blood Pressure 136/59 L Pulse Oximetry 96 Oxygen Delivery Room Air 06/24/24 00:00 06/24/24 03:26 06/24/24 04:00 Temperature 98.1 F Pulse Rate 84 85 77 Respiratory Rate 18 Blood Pressure 161/61 H Pulse Oximetry 95 Oxygen Delivery 06/24/24 08:00 06/24/24 08:02 06/24/24 09:10 Temperature 97.5 F L Pulse Rate 76 80 Respiratory Rate 18 Blood Pressure 177/61 H Pulse Oximetry 97 Oxygen Delivery Room Air 06/24/24 09:10 06/24/24 09:14 06/24/24 12:00 Temperature 97.7 F Pulse Rate 83 83 77 Respiratory Rate 18 Blood Pressure 155/73 H 117/78 Pulse Oximetry 96 96 Oxygen Delivery 06/24/24 14:09 Temperature Pulse Rate Respiratory Rate Blood Pressure Pulse Oximetry Oxygen Delivery Room Air Intake/Output Intake/Output: Intake & Output 06/21/24 06/22/24 06/23/24 06/24/24 23:59 23:59 23:59 23:59 Intake Total 3150 2100 1408 980 Output Total 378 410 8215 600 Balance 2950 1300 -1592 380 Meds/Results Medications: Active Medications Generic Name Dose Route Start Last Admin Trade Name Freq PRN Reason Stop Dose Admin Acetaminophen 650 mg 06/22/24 13:55 06/23/24 13:10 Acetaminophen 325 Mg Tablet PO 650 mg Q4H PRN Administration Mild Pain (1-3) or Fever Dexamethasone 20 mg 06/26/24 09:00 Dexamethasone 4 Mg Tablet PO Mo@0900 [facility] Dextrose 12.5 gm 06/22/24 18:54 Dextrose 50% 25 Gm/50 Ml Syringe IV PUSH PRN PRN Hypoglycemia Protocol Diphenhydramine HCl 25 mg 06/23/24 18:10 06/23/24 20:53 Diphenhydramine Hcl Inj 50 Mg/Ml Vial IV PUSH 25 mg Q4H PRN Administration Itching Enoxaparin Sodium 40 mg 06/23/24 09:00 06/24/24 09:11 Enoxaparin 40 Mg/0.4 Ml Syringe SUB-Q 40 mg DAILY EZRA Administration Glucagon 1 mg 06/22/24 18:54 Glucagon For Inj 1 Mg Vial IM PRN PRN Hypoglycemia Protocol Glucose 15 gm 06/22/24 18:54 Glucose Oral Gel 15 Gm Of Glucse In 37.5 Gm Tube PO PRN PRN Hypoglycemia Protocol Hydralazine HCl 10 mg 06/23/24 11:54 06/23/24 13:10 Hydralazine Hcl 20 Mg/Ml Vial IV PUSH 10 mg Q8H PRN Administration Blood Pressure - High Hydrochlorothiazide 25 mg 06/23/24 09:00 06/24/24 09:14 Hydrochlorothiazide 25 Mg Tablet BY MOUTH 25 mg DAILY EZRA Administration Metronidazole 500 mg in 100 mls @ 100 mls/hr 06/22/24 06:00 06/24/24 13:38 Flagyl 500 Mg/Iso Soln 100 Ml IVPB 100 mls/hr Q8HR EZRA Administration Cefepime HCl 2 gm in 50 mls @ 100 mls/hr 06/22/24 09:00 06/24/24 09:41 Maxipime 2 Gm/Ns 50 Ml IVPB Infused Q12HR EZRA Infusion Dextrose 1,000 mls @ 100 mls/hr 06/22/24 18:54 Dextrose 5% 1,000 Ml IVPB PRN PRN Hypoglycemia Protocol Ibuprofen 600 mg 06/23/24 00:21 Ibuprofen 600 Mg Tablet PO Q6H PRN Cramping Insulin Aspart 2 - 5 units 06/23/24 08:00 06/24/24 12:17 Insulin Aspart (*Bkc) 100 Units/Ml SUB-Q Not Given TIDWM EZRA Protocol Levothyroxine Sodium 50 mcg 06/23/24 06:30 06/24/24 06:11 Levothyroxine Sodium 50 Mcg Tablet PO 50 mcg DAILY@0630 EZRA Administration Lidocaine 1 patch 06/23/24 09:00 06/24/24 09:16 Lidocaine 5% Patch TOPICAL 1 patch DAILY [facility]ZRA Administration Lidocaine/Prilocaine 1 each 06/22/24 18:23 Lidocaine/Prilocaine Cream 2.5-2.5% Tube TOPICAL PRN PRN Port Access Melatonin 5 mg 06/22/24 23:40 06/23/24 20:54 Melatonin 5 Mg Tablet PO 5 mg HS EZRA Administration Metoprolol Succinate 100 mg 06/23/24 09:00 06/24/24 09:14 Metoprolol Succinate Ext Rel 100 Mg Tabcr PO 100 mg DAILY EZRA Administration Miscellaneous Information 1 each 06/22/24 00:01 Nonformulary Drug (Lenalidomide [Revlimid] 15 Mg Capsule)Can Patient Use From Home? XX 07/22/24 00:00 CLARIFY [facility] Miscellaneous Information 1 each 06/24/24 00:01 Home Med (Metronidazole 1 % Gel With Pump) Need Place Of Application XX 07/24/24 00:00 CLARIFY [facility] Montelukast Sodium 10 mg 06/23/24 09:00 06/24/24 09:14 Montelukast Sodium 10 Mg Tablet PO 10 mg DAILY [facility] Administration Morphine Sulfate 1 mg 06/23/24 18:10 06/23/24 20:54 Morphine Sulfate (*Crx) 2 Mg/Ml Inj IV PUSH 1 mg Q4H PRN Administration Pain Rated 7-10 Multi-Ingred Cream/Lotion/Oil/Oint 1 applic 06/22/24 21:00 Mineral Oil/White Petrolatum Ointment EACH EYE Q12H PRN Dry Eyes Multivitamins Therapeutic 1 tablet 06/23/24 09:00 06/24/24 09:14 Multivitamins Therapeutic Tab (*Bkc) PO 1 tablet DAILY [facility] Administration Non-Formulary Medication 15 mg 06/23/24 09:00 Lenalidomide [Revlimid] PO 07/23/24 08:59 DAILY EZRA Home Med ( 1 applic 06/24/24 21:00 Metronidazole 1 % TOPICAL 07/24/24 20:59 Gel With Pump) Q12HR EZRA Home Med ( 25 mg 06/24/24 09:00 Milnacipran [Savella PO 07/24/24 08:59 ] 25 Mg Tablet) DAILY [facility] Ondansetron HCl 4 mg 06/22/24 10:19 Ondansetron Inj 4 Mg/2 Ml Vial IV PUSH Q6H PRN Nausea And Vomiting Ondansetron HCl 4 mg 06/22/24 17:21 06/23/24 01:11 Ondansetron Inj 4 Mg/2 Ml Vial IV PUSH 4 mg Q4H PRN Administration Nausea And Vomiting Ondansetron HCl 8 mg 06/22/24 19:11 Ondansetron Hcl Odt 4 Mg Tablet PO Q8H PRN Nausea And Vomiting Pantoprazole Sodium 40 mg 06/24/24 10:35 06/24/24 10:44 Pantoprazole 40 Mg Tablet PO 40 mg QAM EZRA Administration Perflutren Lipid Microsphere 0 ml 06/23/24 11:54 Perflutren Lipid Microspheres 1.5 Ml Vial Diluted To 10 Ml Total Volume IV PUSH 06/26/24 11:56 ONCE PRN adequate visualization Protocol Ramipril 10 mg 06/24/24 17:00 Ramipril 5 Mg Capsule PO 1700 [facility] Radiology Results: ITS Impressions Head CT 06/21/24 20:54 IMPRESSION: No acute intracranial process. Chest/Abdomen/Pelvis CT 06/21/24 20:56 IMPRESSION: Mild esophagitis/gastritis. Mild dilation of a loop of jejunum in the mid abdomen, presumably secondary to focal ileus. Early obstruction not excluded. Multiple pancreatic cysts measuring up to 1.2 cm, demonstrating interval growth since 08/10/2020 examination. Consider follow-up with contrast enhanced MRI or pancreas protocol CT in one year, depending on the patient's overall health and preferences and if a surgical candidate. Severe disc space narrowing at L3-4 with erosive changes, may be secondary to osteomyelitis/discitis, neuropathic changes, or inflammatory arthropathy. Consider MR lumbar spine without and with contrast. Lumbar Spine MRI 06/22/24 13:57 IMPRESSION: 1. Severe lumbar spondylosis, advanced with Modic type III degenerative endplate changes at L3-L4. No findings to suggest discitis or osteomyelitis. 2. Diffuse heterogeneous marrow signal which could represent combination of red and yellow marrow or be related to reported known multiple myeloma. Chest X-Ray 06/22/24 21:31 IMPRESSION: Left basilar atelectasis versus pneumonia. Abdomen X-Ray 06/23/24 05:50 Impression: Nonspecific bowel gas pattern. Labs Labs: Laboratory Results - last 24 hr 06/23/24 06/23/24 06/23/24 16:28 17:11 19:42 WBC RBC Hgb Hct MCV MCH MCHC RDW Plt Count MPV Immature Gran % (Auto) Neut % (Auto) Lymph % (Auto) [place] % (Auto) Eos % (Auto) Baso % (Auto) Lymph # (Auto) [place] # (Auto) Eos # (Auto) Baso # (Auto) Abs Immat Gran (auto) Absolute Neuts (auto) Absolute Nucleated RBC Nucleated RBC % % Immature Plt Fraction Sodium Potassium 4.3 Chloride Carbon Dioxide Anion Gap BUN Creatinine Estim Creat Clear Calc Estimated GFR Glucose POC Capillary Glucose 122 H 110 H Calcium Phosphorus 3.1 Magnesium 1.7 Total Bilirubin AST ALT Alkaline Phosphatase Total Protein Albumin 06/24/24 06/24/24 06/24/24 06:47 08:11 12:01 WBC 5.2 RBC 2.91 L Hgb 9.4 L Hct 28.9 L MCV 99.3 MCH 32.3 MCHC 32.5 RDW 16.8 H Plt Count 124 L MPV 11.2 H Immature Gran % (Auto) 0.2 Neut % (Auto) 64.6 Lymph % (Auto) 14.7 L [place] % (Auto) 14.3 H Eos % (Auto) 5.4 H Baso % (Auto) 0.8 Lymph # (Auto) 0.76 L [place] # (Auto) 0.7 H Eos # (Auto) 0.3 Baso # (Auto) 0.0 Abs Immat Gran (auto) 0.01 Absolute Neuts (auto) 3.4 Absolute Nucleated RBC 0.000 Nucleated RBC % 0.0 % Immature Plt Fraction 4.0 Sodium 133 L Potassium 3.7 Chloride 106 Carbon Dioxide 23 Anion Gap 4 BUN 15 Creatinine 0.80 Estim Creat Clear Calc 55 Estimated GFR > 60 Glucose 106 POC Capillary Glucose 124 H 123 H Calcium 7.0 L Phosphorus Magnesium 1.8 Total Bilirubin 0.7 AST 22 ALT 15 Alkaline Phosphatase 34 L Total Protein 6.0 L Albumin 3.3 L Hospitalist MIPS Advance Care Plan I have confirmed that the patient's Advanced Care Plan is present, code status is documented, or surrogate decision maker is listed in patient medical record.: Yes Medication Reconciliation I have utilized all available resources to obtain, update and review the patients current medications (includes all prescriptions, OTC, herbals, cannabis, and nutritional supplements).: Yes
[2024-06-24 16:19] LABS: Glucose Point of Care 127 mg/dl (65-105)
[2024-06-24] MEDS: ramipriL 5 MG CAPSULE 10 MG PO (16:35)
[2024-06-24] MEDS: ACETAMINOPHEN 325 MG TABLET 650 MG PO (16:37)
[2024-06-24] MEDS: MILNACIPRAN 25 MG 25 EACH PO (17:52)
[2024-06-24 20:39] LABS: Glucose Point of Care 117 mg/dl (65-105)
[2024-06-24] MEDS: diphenhydrAMINE HCl INJ 50 MG/ML VIAL 25 MG IV PUSH (21:25)
[2024-06-24] MEDS: MELATONIN 5 MG TABLET PO (21:25)
[2024-06-24] MEDS: PUMP TOPICAL (21:26)
[2024-06-24] MEDS: METRONIDAZOLE 1% TOPICAL (21:26)
[2024-06-25] VITALS (13 sets, daily range): BP systolic 157–180; BP diastolic 65–81; PULSE 73–84; RESP 16–18; TEMP 36.2–36.6; O2SAT 95–96
[2024-06-25] MEDS: metroNIDAZOLE 500 MG/ISO 100ML 500 MG/100 ML BAG 100 MG IVPB ×3 (06:00→22:00)
[2024-06-25] MEDS: LEVOTHYROXINE SODIUM 50 MCG TABLET PO (06:00)
[2024-06-25 08:06] LABS: Basophils Percent Auto 0.2 % (0.2-1.2); Eosinophils Absolute Auto 0.1 K/mm3 (0-0.3); Hematocrit 30.8 % (37.0-47.0); Hemoglobin 10.1 g/dL (12.0-15.0); Immature Granulocyte Absolute 0.01 K/mm3 (0.00-0.031); Immature Granulocyte Percent A 0.2 % (0-0.5); Immature Platelet Fraction Pct 3.3 % (0.9-11.2); Lymphocytes Absolute Auto 0.81 K/mm3 (0.9-3.2); Lymphocytes Percent Auto 17.3 % (18.3-44.2); Mean Corpuscular HGB Conc 32.8 g/dl (32-36); Mean Corpuscular Hemoglobin 32.5 pg (26-34); Mean Platelet Volume 10.7 fl (7.4-10.4); Monocytes Absolute Auto 0.6 K/mm3 (0.1-0.6); Monocytes Percent Auto 12.4 % (2.6-8.5); Neutrophils Absolute Auto 3.1 K/mm3 (1.3-6.7); Neutrophils Percent Auto 66.9 % (45.5-73.1); Platelet Count Result 112 k/mm3 (150-375); Red Blood Count 3.11 M/mm3 (4.2-5.4); Red Cell Distribution Width 16.5 % (11.5-14.5); White Blood Count 4.7 K/mm3 (4.5-10.0)
[2024-06-25 08:17] LABS: Alanine Aminotransferase 18 U/L (6-35); Albumin Level 3.5 g/dL (3.5-5.1); Alkaline Phosphatase 43 U/L (38-126); Anion Gap 3 mmol/L (4-12); Aspartate Amino Transferase 24 U/L (14-36); Bilirubin,Total 0.8 mg/dL (0.2-1.3); Blood Urea Nitrogen 14 mg/dL (7-17); Calcium 7.2 mg/dL (8.4-10.2); Carbon Dioxide 25 mmol/L (22-30); Chloride 105 mmol/L (98-107); Estimated CRCL calculation 55 ml/min; Estimated Glomerular Filt Rate > 60; Glucose 116 mg/dL (65-110); Magnesium 1.6 mg/dL (1.6-2.3); Potassium 3.2 mmol/L (3.4-5.0); Sodium 133 mmol/L (137-145)
[2024-06-25 08:45] LABS: Glucose Point of Care 114 mg/dl (65-105)
--- NOTE | 2024-06-25 09:08 | PM.IMPN ---
Progress Note: A&P Assessment and Plan (1) Myeloma: Code(s): C90.00 - Multiple myeloma not having achieved remission Status: Acute (2) Ileus: Code(s): K56.7 - Ileus, unspecified Status: Acute (3) Port-A-Cath in place: Code(s): Z95.828 - Presence of other vascular implants and grafts Status: Acute Plan MM Neutropenic precautions Started on cefepime prophylactically Nasal MRSA negative Watch for any abnormal vitals Ordered Hematology consult Focal Ileus On metronidazole Will continue monitor Continue clear liquid advanced as tolerated Surgery following Hypertension Continue hydrochlorothiazide 25 mg p.o. q.d. Hydralazine 10 mg IV q.6 hours p.r.n. if blood pressure greater than 160/90 Metoprolol succinate 100 mg p.o. q.d. Follows pain management as an outpatient DVT prophylaxis: Lovenox 40 mg GI prophylaxis: Pantoprazole 40 mg Subjective Date/time seen: 06/25/24 09:08 Interval history: No acute events overnight. ECHO: Left ventricular systolic function is normal, estimated at 55-60%. Review of Systems Review of Systems: All systems reviewed & are unremarkable except as noted in HPI and below Exam Narrative: APPEARANCE: No apparent distress. A&O times 1-2 Head: atraumatic. EYES: EOMI, NOSE: Atraumatic NECK: Trachea midline RESPIRATORY: No increased rate of breathing clear to auscultation CARDIOVASCULAR: RRR,No peripheral edema. ABDOMINAL: Non-distended MUSCULOSKELETAl: No obvious deformities NEURO: Alert. Moving 4/4 extremities SKIN:: Two surgical incisions upper right and upper left chest fromport placement and removal. No signs of infection. no skin breakdown PSYCHIATRIC: Normal affect Const: General: cooperative, comfortable, no acute distress, ill appearing and tired appearing Orientation/consciousness: patient oriented x3 HENMT: Head: normal to inspection, normocephalic and atraumatic Eyes: General: appearance normal, both eyes and all related structures Neck: Neck: normal visual inspection and no lymphadenopathy Resp: Auscultation: diminished lung sounds Cardio: Rate: regular rate Rhythm: regular rhythm GI: Inspection: normal to inspection and distended Skin: General skin exam: normal color and no rashes or lesions noted Neuro: General: patient oriented x3 and CN's II-XI intact bilaterally Extrem: General: normal to inspection and full ROM Objective Data Vital Signs Vital Signs: Vital Signs - 24 hr 06/24/24 09:10 06/24/24 09:10 06/24/24 09:14 Temperature Pulse Rate 83 83 Respiratory Rate Blood Pressure 155/73 H Pulse Oximetry 96 Oxygen Delivery Room Air 06/24/24 12:00 06/24/24 12:00 06/24/24 14:09 Temperature 97.7 F Pulse Rate 77 80 Respiratory Rate 18 Blood Pressure 117/78 Pulse Oximetry 96 Oxygen Delivery Room Air 06/24/24 16:00 06/24/24 16:00 06/24/24 20:00 Temperature 97.5 F L 97.2 F L Pulse Rate 73 73 98 Respiratory Rate 18 16 Blood Pressure 156/60 H 123/84 Pulse Oximetry 94 98 Oxygen Delivery 06/24/24 20:00 06/24/24 20:00 06/24/24 23:59 Temperature 97.5 F L Pulse Rate 81 82 Respiratory Rate 12 Blood Pressure 140/59 L Pulse Oximetry 95 Oxygen Delivery Room Air 06/25/24 00:00 06/25/24 04:00 06/25/24 04:36 Temperature 97.4 F L Pulse Rate 81 73 80 Respiratory Rate 16 Blood Pressure 180/67 H Pulse Oximetry 96 Oxygen Delivery Intake/Output Intake/Output: Intake & Output 06/22/24 06/23/24 06/24/24 06/25/24 23:59 23:59 23:59 23:59 Intake Total 2100 1408 1740 300 Output Total 800 3000 1000 300 Balance 1300 -1592 740 0 Meds/Results Medications: Active Medications Generic Name Dose Route Start Last Admin Trade Name Freq PRN Reason Stop Dose Admin Acetaminophen 650 mg 06/22/24 13:55 06/24/24 16:37 Acetaminophen 325 Mg Tablet PO 650 mg Q4H PRN Administration Mild Pain (1-3) or Fever Dexamethasone 20 mg 06/26/24 09:00 Dexamethasone 4 Mg Tablet PO Mo@0900 [facility] Dextrose 12.5 gm 06/22/24 18:54 Dextrose 50% 25 Gm/50 Ml Syringe IV PUSH PRN PRN Hypoglycemia Protocol Diphenhydramine HCl 25 mg 06/23/24 18:10 06/24/24 21:25 Diphenhydramine Hcl Inj 50 Mg/Ml Vial IV PUSH 25 mg Q4H PRN Administration Itching Enoxaparin Sodium 40 mg 06/23/24 09:00 06/24/24 09:11 Enoxaparin 40 Mg/0.4 Ml Syringe SUB-Q 40 mg DAILY EZRA Administration Glucagon 1 mg 06/22/24 18:54 Glucagon For Inj 1 Mg Vial IM PRN PRN Hypoglycemia Protocol Glucose 15 gm 06/22/24 18:54 Glucose Oral Gel 15 Gm Of Glucse In 37.5 Gm Tube PO PRN PRN Hypoglycemia Protocol Hydralazine HCl 10 mg 06/23/24 11:54 06/23/24 13:10 Hydralazine Hcl 20 Mg/Ml Vial IV PUSH 10 mg Q8H PRN Administration Blood Pressure - High Hydrochlorothiazide 25 mg 06/23/24 09:00 06/24/24 09:14 Hydrochlorothiazide 25 Mg Tablet BY MOUTH 25 mg DAILY EZRA Administration Metronidazole 500 mg in 100 mls @ 100 mls/hr 06/22/24 06:00 06/25/24 07:00 Flagyl 500 Mg/Iso Soln 100 Ml IVPB Infused Q8HR EZRA Infusion Cefepime HCl 2 gm in 50 mls @ 100 mls/hr 06/22/24 09:00 06/24/24 21:25 Maxipime 2 Gm/Ns 50 Ml IVPB 100 mls/hr Q12HR EZRA Administration Dextrose 1,000 mls @ 100 mls/hr 06/22/24 18:54 Dextrose 5% 1,000 Ml IVPB PRN PRN Hypoglycemia Protocol Ibuprofen 600 mg 06/23/24 00:21 Ibuprofen 600 Mg Tablet PO Q6H PRN Cramping Insulin Aspart 2 - 5 units 06/23/24 08:00 06/25/24 08:49 Insulin Aspart (*Bkc) 100 Units/Ml SUB-Q Not Given TIDWM [facility] Protocol Levothyroxine Sodium 50 mcg 06/23/24 06:30 06/25/24 06:00 Levothyroxine Sodium 50 Mcg Tablet PO 50 mcg DAILY@0630 EZRA Administration Lidocaine 1 patch 06/23/24 09:00 06/24/24 09:16 Lidocaine 5% Patch TOPICAL 1 patch DAILY EZRA Administration Lidocaine/Prilocaine 1 each 06/22/24 18:23 Lidocaine/Prilocaine Cream 2.5-2.5% Tube TOPICAL PRN PRN Port Access Melatonin 5 mg 06/22/24 23:40 06/24/24 21:25 Melatonin 5 Mg Tablet PO 5 mg HS EZRA Administration Metoprolol Succinate 100 mg 06/23/24 09:00 06/24/24 09:14 Metoprolol Succinate Ext Rel 100 Mg Tabcr PO 100 mg DAILY EZRA Administration Montelukast Sodium 10 mg 06/23/24 09:00 06/24/24 09:14 Montelukast Sodium 10 Mg Tablet PO 10 mg DAILY EZRA Administration Morphine Sulfate 1 mg 06/23/24 18:10 06/23/24 20:54 Morphine Sulfate (*Crx) 2 Mg/Ml Inj IV PUSH 1 mg Q4H PRN Administration Pain Rated 7-10 Multi-Ingred Cream/Lotion/Oil/Oint 1 applic 06/22/24 21:00 Mineral Oil/White Petrolatum Ointment EACH EYE Q12H PRN Dry Eyes Multivitamins Therapeutic 1 tablet 06/23/24 09:00 06/24/24 09:14 Multivitamins Therapeutic Tab (*Bkc) PO 1 tablet DAILY EZRA Administration Home Med ( 1 applic 06/24/24 21:00 06/24/24 21:26 Metronidazole 1 % TOPICAL 07/24/24 20:59 1 applic Gel With Pump) Q12HR EZRA Administration Home Med ( 25 mg 06/24/24 17:00 06/24/24 17:52 Milnacipran [Savella PO 07/24/24 16:59 25 mg ] 25 Mg Tablet) DAILY@1700 EZRA Administration Ondansetron HCl 4 mg 06/22/24 10:19 Ondansetron Inj 4 Mg/2 Ml Vial IV PUSH Q6H PRN Nausea And Vomiting Ondansetron HCl 4 mg 06/22/24 17:21 06/23/24 01:11 Ondansetron Inj 4 Mg/2 Ml Vial IV PUSH 4 mg Q4H PRN Administration Nausea And Vomiting Ondansetron HCl 8 mg 06/22/24 19:11 Ondansetron Hcl Odt 4 Mg Tablet PO Q8H PRN Nausea And Vomiting Pantoprazole Sodium 40 mg 06/24/24 10:35 06/24/24 10:44 Pantoprazole 40 Mg Tablet PO 40 mg QAM EZRA Administration Perflutren Lipid Microsphere 0 ml 06/23/24 11:54 Perflutren Lipid Microspheres 1.5 Ml Vial Diluted To 10 Ml Total Volume IV PUSH 06/26/24 11:56 ONCE PRN adequate visualization Protocol Ramipril 10 mg 06/24/24 17:00 06/24/24 16:35 Ramipril 5 Mg Capsule PO 10 mg 1700 EZRA Administration Radiology Results: ITS Impressions Head CT 06/21/24 20:54 IMPRESSION: No acute intracranial process. Chest/Abdomen/Pelvis CT 06/21/24 20:56 IMPRESSION: Mild esophagitis/gastritis. Mild dilation of a loop of jejunum in the mid abdomen, presumably secondary to focal ileus. Early obstruction not excluded. Multiple pancreatic cysts measuring up to 1.2 cm, demonstrating interval growth since 08/10/2020 examination. Consider follow-up with contrast enhanced MRI or pancreas protocol CT in one year, depending on the patient's overall health and preferences and if a surgical candidate. Severe disc space narrowing at L3-4 with erosive changes, may be secondary to osteomyelitis/discitis, neuropathic changes, or inflammatory arthropathy. Consider MR lumbar spine without and with contrast. Lumbar Spine MRI 06/22/24 13:57 IMPRESSION: 1. Severe lumbar spondylosis, advanced with Modic type III degenerative endplate changes at L3-L4. No findings to suggest discitis or osteomyelitis. 2. Diffuse heterogeneous marrow signal which could represent combination of red and yellow marrow or be related to reported known multiple myeloma. Chest X-Ray 06/22/24 21:31 IMPRESSION: Left basilar atelectasis versus pneumonia. Abdomen X-Ray 06/23/24 05:50 Impression: Nonspecific bowel gas pattern. Labs Labs: Laboratory Results - last 24 hr 06/24/24 06/24/24 06/24/24 12:01 16:13 19:52 WBC RBC Hgb Hct MCV MCH MCHC RDW Plt Count MPV Immature Gran % (Auto) Neut % (Auto) Lymph % (Auto) [place] % (Auto) Eos % (Auto) Baso % (Auto) Lymph # (Auto) [place] # (Auto) Eos # (Auto) Baso # (Auto) Abs Immat Gran (auto) Absolute Neuts (auto) Absolute Nucleated RBC Nucleated RBC % % Immature Plt Fraction Sodium Potassium Chloride Carbon Dioxide Anion Gap BUN Creatinine Estim Creat Clear Calc Estimated GFR Glucose POC Capillary Glucose 123 H 127 H 117 H Calcium Magnesium Total Bilirubin AST ALT Alkaline Phosphatase Total Protein Albumin 01/05/25 01/05/25 07:20 08:31 WBC 4.7 RBC 3.11 L Hgb 10.1 L Hct 30.8 L MCV 99.0 MCH 32.5 MCHC 32.8 RDW 16.5 H Plt Count 112 L MPV 10.7 H Immature Gran % (Auto) 0.2 Neut % (Auto) 66.9 Lymph % (Auto) 17.3 L [place] % (Auto) 12.4 H Eos % (Auto) 3.0 Baso % (Auto) 0.2 Lymph # (Auto) 0.81 L [place] # (Auto) 0.6 Eos # (Auto) 0.1 Baso # (Auto) 0.0 Abs Immat Gran (auto) 0.01 Absolute Neuts (auto) 3.1 Absolute Nucleated RBC 0.000 Nucleated RBC % 0.0 % Immature Plt Fraction 3.3 Sodium 133 L Potassium 3.2 L Chloride 105 Carbon Dioxide 25 Anion Gap 3 L BUN 14 Creatinine 0.80 Estim Creat Clear Calc 55 Estimated GFR > 60 Glucose 116 H POC Capillary Glucose 114 H Calcium 7.2 L Magnesium 1.6 Total Bilirubin 0.8 AST 24 ALT 18 Alkaline Phosphatase 43 Total Protein 6.0 L Albumin 3.5 Hospitalist MIPS Advance Care Plan I have confirmed that the patient's Advanced Care Plan is present, code status is documented, or surrogate decision maker is listed in patient medical record.: Yes Medication Reconciliation I have utilized all available resources to obtain, update and review the patients current medications (includes all prescriptions, OTC, herbals, cannabis, and nutritional supplements).: Yes
[2024-06-25] MEDS: CEFEPIME 2 GM/NS 50 ML 2 GM/50 ML BAG IVPB ×2 (11:03→20:48)
[2024-06-25] MEDS: METOPROLOL SUCCINATE EXT REL 100 MG TABCR PO (11:09)
[2024-06-25] MEDS: hydroCHLOROthiazide 25 MG TABLET BY MOUTH (11:09)
[2024-06-25] MEDS: PANTOPRAZOLE 40 MG TABLET PO (11:10)
[2024-06-25] MEDS: MULTIVITAMINS THERAPEUTIC TAB (*BKC) 1 TABLET PO (11:10)
[2024-06-25] MEDS: MONTELUKAST SODIUM 10 MG TABLET PO (11:10)
[2024-06-25] MEDS: METRONIDAZOLE 1% TOPICAL ×2 (11:15→20:46)
[2024-06-25] MEDS: LIDOCAINE 5% PATCH 1 PATCH TOPICAL (11:15)
[2024-06-25] MEDS: PUMP TOPICAL ×2 (11:15→20:46)
[2024-06-25 12:31] LABS: Glucose Point of Care 159 mg/dl (65-105)
--- NOTE | 2024-06-25 16:55 | P.CONS_ITS ---
HPI Data of Consult Date/Time: 06/25/24 16:55 Requesting Physician: Nikolai Schroeder MD Primary Care Provider: UNKNOWN,DOCTOR Consult Narrative Narrative: Sloane Elise is an 83 year old female is an 83-year-old lady with known history of multiple myeloma and presently On maintenance Revlimid 15 mg daily and dexamethasone 20 mg weekly. She developed nausea and vomiting with diarrhea 1 day prior to this admission. She became quite weak and confused. She also complained of fever off and on. She is referred for oncology evaluation and comanagement. Imaging (abdominal CT scan) is significant for gastritis And jejunal loop dilatation. CBC reveals WBC 3.8 with normal differential hemoglobin 9.3 g % and platelet count count of 139 K. The patient is mildly confused and her abdomen is mildly tender but not distended. [facility] Past Medical History Medical History Myeloma Walker as ambulation aid Pulmonary hypertension HONG (obstructive sleep apnea) Hyperlipidemia Hypertension PMR (polymyalgia rheumatica) Chronic pain Fibromyalgia Insomnia Sleep apnea in adult Surgical History Surgical History H/O: hysterectomy History of esophagogastroduodenoscopy (EGD) H/O bladder repair surgery Hx of tonsillectomy H/O adenoidectomy Family History Family History Mother Family history of thyroid disease, Onset Age: 48 Father Family history of coronary artery disease, Onset Age: 94 Family history of congestive heart failure, Onset Age: 94 Sibling Diabetes mellitus Other Family history of cardiovascular disease Family history of elevated blood lipids No family history of malignant neoplasm Social History Social History Smoking status: Never smoker Second hand tobacco smoke exposure: No Alcohol intake: never Substance use: never Lack of Transportation: No Lack of Food: Sometimes True Current Housing: I Have Housing Concerned About Future Housing: No Difficulty Paying Gas/Electric Bills: No Difficulty Paying for Meds: No Currently Unemployed: No Education: High School Diploma/GED Difficulty w/ Childcare or Family Care: No Living arrangements: with family Additional living arrangements comments: Spiritual care concerns: No Meds Home Medications and Allergies Home Medications ?Medication ?Instructions ?Recorded ?Confirmed ?Type omeprazole 20 mg capsule,delayed 20 mg PO DAILY 05/29/19 06/22/24 History release glucosamine [id number] See Rx Instructions PO DAILY 10/06/19 06/22/24 History 400 mg-200 mg-333 mg tablet multivitamin 1 tablet PO DAILY 10/06/19 06/22/24 History aspirin 81 mg tablet,delayed 81 mg PO DAILY 07/31/21 06/22/24 History release fluticasone propionate 50 2 spray intranasal BID #36.4 mL 09/15/22 06/22/24 Rx mcg/actuation nasal spray,suspension acetaminophen 650 mg 1,300 mg PO Q12H PRN Pain 01/28/23 06/22/24 History tablet,extended release (Tylenol Arthritis Pain) artificial tears with lanolin eye 1 applic EACH EYE 4-12XD PRN Dry 01/28/23 06/22/24 History ointment Eyes biotin 10,000 mcg capsule 10,000 mcg PO DAILY 01/28/23 06/22/24 History fish, borage, flaxseed oils-omega 1 cap PO DAILY 01/28/23 06/22/24 History 3,6,9 comb no.1 1,200 mg capsule (Council 3-6-9) turmeric root extract 500 mg 500 mg PO BID 01/28/23 06/22/24 History capsule montelukast 10 mg tablet See Rx Instructions .Route 12/24/23 06/22/24 Rx .COMPLEX #90 tabs ramipril 10 mg capsule 10 mg PO DAILY #90 caps 01/03/24 06/22/24 Rx metformin 500 mg tablet,extended 500 mg PO DAILY #90 tabs 01/13/24 06/22/24 Rx release 24 hr triamcinolone acetonide 0.1 % 1 applic topical PRN PRN Skin 01/27/24 06/22/24 History topical cream Irritation acyclovir 400 mg tablet 400 mg PO DAILY 02/11/24 06/22/24 History dexamethasone 4 mg tablet 4 mg PO DIRECTED 02/11/24 06/22/24 History ondansetron 8 mg disintegrating 8 mg PO Q8H PRN Nausea And Vomiting 02/11/24 06/22/24 History tablet sulfamethoxazole 800 800 tablet PO QMWF 02/11/24 06/22/24 History mg-trimethoprim 160 mg tablet metronidazole 1 % topical gel with See Rx Instructions .Route 02/28/24 06/22/24 Rx pump .COMPLEX #55 grams levothyroxine 50 mcg tablet See Rx Instructions .Route 03/13/24 06/22/24 Rx .COMPLEX #90 tabs ezetimibe 10 mg tablet See Rx Instructions .Route 03/16/24 06/22/24 Rx .COMPLEX #90 tabs eszopiclone 3 mg tablet (Lunesta) 3 mg PO QHS PRN insomnia #30 tabs 03/30/24 06/22/24 Rx hydrochlorothiazide 25 mg tablet See Rx Instructions .Route 04/10/24 06/22/24 Rx .COMPLEX #90 tabs atorvastatin 20 mg tablet (Lipitor) 20 mg PO QHS #90 tabs 04/26/24 06/22/24 Rx gabapentin 600 mg tablet 600 mg PO QID #360 tabs 05/01/24 06/22/24 Rx milnacipran 25 mg tablet (Savella) 25 mg PO DAILY 30 days #30 tabs 05/03/24 06/22/24 Rx lidocaine 5 % topical patch 1 patch topical DAILY #30 ea 05/16/24 06/22/24 Rx tramadol 50 mg tablet 50 mg PO Q12H PRN pain 06/05/24 06/22/24 History metoprolol succinate 100 mg See Rx Instructions .Route 06/12/24 06/22/24 Rx tablet,extended release 24 hr .COMPLEX #90 tabs acyclovir 400 mg tablet 400 mg PO BID 06/22/24 06/22/24 History atorvastatin 20 mg tablet 20 mg PO DAILY 06/22/24 06/22/24 History dexamethasone 4 mg tablet 20 mg PO WEEKLY 06/22/24 06/22/24 History eszopiclone 3 mg tablet 3 mg PO QHS PRN insomnia 06/22/24 06/22/24 History ezetimibe 10 mg tablet 10 mg PO DAILY 06/22/24 06/22/24 History gabapentin 600 mg tablet 600 mg PO QID 06/22/24 06/22/24 History hydrochlorothiazide 25 mg tablet 25 mg PO DAILY 06/22/24 06/22/24 History lenalidomide 15 mg capsule 15 mg PO DAILY 06/22/24 06/22/24 History (Revlimid) lenalidomide 25 mg capsule mg PO 06/22/24 History (Revlimid) levothyroxine 50 mcg tablet 50 mcg PO .q 0630 06/22/24 06/22/24 History lidocaine 5 % topical patch 1 patch topical DAILY 06/22/24 06/22/24 History lidocaine-prilocaine 2.5 %-2.5 % 1 applic topical PRN PRN Port 06/22/24 06/22/24 History topical cream Access metformin 500 mg tablet,extended 500 mg PO DAILY 06/22/24 06/22/24 History release 24 hr metoprolol succinate 100 mg 100 mg PO DAILY 06/22/24 06/22/24 History tablet,extended release 24 hr metronidazole 1 % topical gel with 1 applic topical BID 06/22/24 06/22/24 History pump milnacipran 25 mg tablet (Savella) 25 mg PO DAILY 06/22/24 06/22/24 History montelukast 10 mg tablet 10 mg PO DAILY 06/22/24 06/22/24 History ondansetron 8 mg disintegrating 8 mg translingual Q8H PRN nausea 06/22/24 06/22/24 History tablet and vomiting ramipril 10 mg capsule 10 mg PO DAILY 06/22/24 06/22/24 History sulfamethoxazole 800 tablet 06/22/24 History mg-trimethoprim 160 mg tablet tramadol 50 mg tablet mg 06/22/24 History Allergies Allergy/AdvReac Type Severity Reaction Status Date / Time doxycycline Allergy Severe Itching Verified 06/22/24 11:30 alprazolam Allergy Intermediate Other-UNABLE Verified 06/22/24 11:30 TO RECALL minocycline Allergy Intermediate Itching, Verified 06/22/24 11:30 HIVES propoxyphene Allergy Intermediate Itching Verified 06/22/24 11:30 carboxymethylcellulose sodium Allergy Mild Other-UNABLE Verified 06/22/24 11:30 TO RECALL duloxetine Allergy Mild Unknown-UNABLE Verified 06/22/24 11:30 TO RECALL indomethacin Allergy Mild Unknown-UNABLE Verified 06/22/24 11:30 TO RECALL linaclotide Allergy Mild Other-UNABLE Verified 06/22/24 11:30 TO RECALL nabumetone Allergy Mild Unknown-UNABLE Verified 06/22/24 11:30 TO RECALL sulfamethoxazole Allergy Mild Unknown-UNABLE Verified 06/22/24 11:30 TO RECALL terbinafine Allergy Mild Unknown-UNABLE Verified 06/22/24 11:30 TO RECALL valdecoxib Allergy Mild Unknown-UNABLE Verified 06/22/24 11:30 TO RECALL etodolac Allergy Unknown UNKNOWN-UNABLE Verified 06/22/24 11:30 TO RECALL chlorpheniramine AdvReac Intermediate HARD TO Verified 06/22/24 11:30 AWAKEN codeine AdvReac Intermediate Nervousness, Verified 06/22/24 11:30 HEART RACES, HEAD FEELS STRANGE dexchlorpheniramine AdvReac Intermediate Other-ZEUS Verified 06/22/24 11:30 RGY levocarnitine AdvReac Intermediate (Trinalin)= Verified 06/22/24 11:30 Nausea levofloxacin AdvReac Intermediate Nausea and Verified 06/22/24 11:30 Vomiting phenylephrine AdvReac Intermediate Other-ZEUS Verified 06/22/24 11:30 RGY phenylpropanolamine AdvReac Intermediate Other- IMMU Verified 06/22/24 11:30 NE rofecoxib AdvReac Intermediate Swelling, Verified 06/22/24 11:30 WATER RETENTION scopolamine AdvReac Intermediate Other-ZEUS Verified 06/22/24 11:30 RGY amitriptyline AdvReac Mild Other-ZEUS Verified 06/22/24 11:30 RGY brompheniramine AdvReac Mild other- TOO Verified 06/22/24 11:30 DRYING carbinoxamine AdvReac Mild Other- TOO Verified 06/22/24 11:30 DRYING diclofenac AdvReac Mild HEARTBURN Verified 06/22/24 11:30 oxybutynin AdvReac Mild Rash Verified 06/22/24 11:30 ramelteon AdvReac Mild Nausea Verified 06/22/24 11:30 terfenadine AdvReac Mild Nausea Verified 06/22/24 11:30 trazodone AdvReac Mild Restless Verified 06/22/24 11:30 Sleep pregabalin (From Lyrica) AdvReac Unknown does not Verified 06/22/24 11:30 remember gabapentin AdvReac does not Verified 06/22/24 11:30 remember Vital Signs Vital Signs - 24 hr 06/24/24 20:00 06/24/24 20:00 06/24/24 20:00 Temperature 36.2 C L Pulse Rate 98 81 Respiratory Rate 16 Blood Pressure 123/84 Pulse Oximetry 98 Oxygen Delivery Room Air 06/24/24 23:59 06/25/24 00:00 06/25/24 04:00 Temperature 36.4 C L Pulse Rate 82 81 73 Respiratory Rate 12 Blood Pressure 140/59 L Pulse Oximetry 95 Oxygen Delivery 06/25/24 04:36 06/25/24 08:00 06/25/24 08:00 Temperature 36.3 C L 36.4 C L Pulse Rate 80 77 Respiratory Rate 16 16 Blood Pressure 180/67 H 157/69 H Pulse Oximetry 96 95 Oxygen Delivery Room Air 06/25/24 08:02 06/25/24 11:09 06/25/24 12:00 Temperature 36.6 C Pulse Rate 78 77 84 Respiratory Rate 16 Blood Pressure 164/65 H Pulse Oximetry 96 Oxygen Delivery 06/25/24 12:02 06/25/24 16:00 Temperature 36.4 C L Pulse Rate 83 81 Respiratory Rate 16 Blood Pressure 180/77 H Pulse Oximetry 96 Oxygen Delivery Results Labs 06/25/24 07:20 06/25/24 07:20 Labs: Short CBC 06/25/24 Range/Units 07:20 WBC 4.7 (4.5-10.0) K/mm3 Hgb 10.1 L (12.0-15.0) g/dL Hct 30.8 L (37.0-47.0) % Plt Count 112 L (150-375) k/mm3 BMP 06/25/24 07:20 Sodium 133 L Potassium 3.2 L Chloride 105 Carbon Dioxide 25 BUN 14 Creatinine 0.80 Glucose 116 H Calcium 7.2 L Liver Function 06/25/24 Range/Units 07:20 Total Bilirubin 0.8 (0.2-1.3) mg/dL AST 24 (14-36) U/L ALT 18 (6-35) U/L Alkaline Phosphatase 43 (38-126) U/L Albumin 3.5 (3.5-5.1) g/dL Attestation Supervising Provider Attestation Assessment: This is an 83-year-old lady with a diagnosis of multiple myeloma on maintenance lenalidomide and dexamethasone. She was admitted with a 1 day history of nausea vomiting and diarrhea with fever off and on. CT scan of abdomen shows jejunal dilatation suggesting small bowel obstruction. Recommendation: Serum protein immunoelectrophoresis Discontinue lenalidomide and dexamethasone for now. Monitor CBC Surgery consultation
[2024-06-25 17:16] LABS: Glucose Point of Care 111 mg/dl (65-105)
[2024-06-25] MEDS: MILNACIPRAN 25 MG 25 EACH PO (17:16)
[2024-06-25] MEDS: ramipriL 5 MG CAPSULE 10 MG PO (17:16)
[2024-06-25] MEDS: diphenhydrAMINE HCl INJ 50 MG/ML VIAL 25 MG IV PUSH (20:46)
[2024-06-25] MEDS: MELATONIN 5 MG TABLET PO (20:46)
[2024-06-25] MEDS: MORPHINE SULFATE (*CRX) 2 MG/ML INJ 1 MG IV PUSH (20:46)
[2024-06-25 21:19] LABS: Glucose Point of Care 122 mg/dl (65-105)
[2024-06-26] VITALS (8 sets, daily range): BP systolic 131–179; BP diastolic 63–76; PULSE 68–87; RESP 12–16; TEMP 36.4–37.1; O2SAT 93–100
[2024-06-26] MEDS: metroNIDAZOLE 500 MG/ISO 100ML 500 MG/100 ML BAG 100 MG IVPB (06:22)
[2024-06-26] MEDS: LEVOTHYROXINE SODIUM 50 MCG TABLET PO (06:23)
[2024-06-26 08:22] LABS: Glucose Point of Care 128 mg/dl (65-105)
[2024-06-26] MEDS: hydroCHLOROthiazide 25 MG TABLET BY MOUTH (08:30)
[2024-06-26] MEDS: PANTOPRAZOLE 40 MG TABLET PO (08:30)
[2024-06-26] MEDS: MONTELUKAST SODIUM 10 MG TABLET PO (08:30)
[2024-06-26] MEDS: ENOXAPARIN 40 MG/0.4 ML SYRINGE SUB-Q (08:30)
[2024-06-26] MEDS: MULTIVITAMINS THERAPEUTIC TAB (*BKC) 1 TABLET PO (08:30)
[2024-06-26] MEDS: METOPROLOL SUCCINATE EXT REL 100 MG TABCR PO (08:30)
[2024-06-26] MEDS: PUMP TOPICAL ×2 (08:31→20:21)
[2024-06-26] MEDS: CEFEPIME 2 GM/NS 50 ML 2 GM/50 ML BAG IVPB ×2 (08:31→20:20)
[2024-06-26] MEDS: METRONIDAZOLE 1% TOPICAL ×2 (08:31→20:21)
[2024-06-26 09:48] LABS: Basophils Absolute Auto 0.1 K/mm3 (0.0-0.1); Basophils Percent Auto 1.1 % (0.2-1.2); Eosinophils Absolute Auto 0.3 K/mm3 (0-0.3); Eosinophils Percent Auto 5.7 % (0-4.4); Immature Granulocyte Absolute 0.01 K/mm3 (0.00-0.031); Immature Granulocyte Percent A 0.2 % (0-0.5); Lymphocytes Absolute Auto 0.84 K/mm3 (0.9-3.2); Lymphocytes Percent Auto 17.8 % (18.3-44.2); Mean Corpuscular HGB Conc 33.3 g/dl (32-36); Mean Corpuscular Hemoglobin 32.9 pg (26-34); Mean Corpuscular Volume 98.7 fl (80-100); Mean Platelet Volume 10.2 fl (7.4-10.4); Monocytes Absolute Auto 0.7 K/mm3 (0.1-0.6); Monocytes Percent Auto 14.9 % (2.6-8.5); Neutrophils Absolute Auto 2.8 K/mm3 (1.3-6.7); Neutrophils Percent Auto 60.3 % (45.5-73.1); Platelet Count Result 125 k/mm3 (150-375); Red Blood Count 3.04 M/mm3 (4.2-5.4); Red Cell Distribution Width 16.3 % (11.5-14.5); White Blood Count 4.7 K/mm3 (4.5-10.0)
[2024-06-26 09:57] LABS: Alanine Aminotransferase 20 U/L (6-35); Albumin Level 3.6 g/dL (3.5-5.1); Alkaline Phosphatase 45 U/L (38-126); Anion Gap 1 mmol/L (4-12); Aspartate Amino Transferase 25 U/L (14-36); Bilirubin,Total 0.8 mg/dL (0.2-1.3); Blood Urea Nitrogen 13 mg/dL (7-17); Calcium 7.3 mg/dL (8.4-10.2); Carbon Dioxide 29 mmol/L (22-30); Chloride 101 mmol/L (98-107); Estimated CRCL calculation 62 ml/min; Estimated Glomerular Filt Rate > 60; Glucose 142 mg/dL (65-110); Magnesium 1.7 mg/dL (1.6-2.3); Potassium 3.8 mmol/L (3.4-5.0); Sodium 131 mmol/L (137-145)
--- NOTE | 2024-06-26 10:23 | P.PNIM_ITS ---
Progress Note: A&P Assessment and Plan (1) Myeloma: Code(s): C90.00 - Multiple myeloma not having achieved remission Status: Acute (2) Ileus: Code(s): K56.7 - Ileus, unspecified Status: Acute (3) Port-A-Cath in place: Code(s): Z95.828 - Presence of other vascular implants and grafts Status: Acute Plan MM Neutropenic precautions Started on cefepime prophylactically Nasal MRSA negative Watch for any abnormal vitals Ordered Hematology consult Focal Ileus On metronidazole Will continue monitor Continue clear liquid advanced as tolerated Surgery following Hypertension Continue hydrochlorothiazide 25 mg p.o. q.d. Hydralazine 10 mg IV q.6 hours p.r.n. if blood pressure greater than 160/90 Metoprolol succinate 100 mg p.o. q.d. Follows pain management as an outpatient DVT prophylaxis: Lovenox 40 mg GI prophylaxis: Pantoprazole 40 mg Subjective Date/time seen: 06/26/24 10:23 Interval history: Patient has polypharmacy. Patient is not able to verify the medication she is taking. Patient is taking Bactrim and dexamethasone for PCP prophylaxis. Patient was evaluated by outsole leveler yesterday who recommend stopping dexamethasone and Lenalidomide. Under her allergy list is listed patient is allergic to sulfa. When asked about Bactrim patient has no idea that she was taking it or not. Of note patient was admitted due to nausea vomiting and few episodes of diarrhea. Patient was started on metronidazole, cefepime and vancomycin by the a dmitting team. Since the nasal MRSA was negative vancomycin has been discontinued. His since the CT abdomen shows mild dilation of loop of jejunum in the mid abdomen, presumably secondary to focal ileus. Early obstruction not included. Patient is started on metronidazole. Surgery was consulted and agrees with clear liquid diet to advance as tolerated. Patient had left side port a cath which was placed on January, which was not properly working and replaced on right side about a week ago. Patient continues to feel better. Echocardiogram shows Left ventricular systolic function is normal, estimated at 55-60%. As mentioned above patient takes medications which she is not aware. Patient also follows up with pain management. Review of Systems Review of Systems: All systems reviewed & are unremarkable except as noted in HPI and below Exam Narrative: APPEARANCE: No apparent distress. A&O times 1-2 Head: atraumatic. EYES: EOMI, NOSE: Atraumatic NECK: Trachea midline RESPIRATORY: No increased rate of breathing clear to auscultation CARDIOVASCULAR: RRR,No peripheral edema. ABDOMINAL: Non-distended MUSCULOSKELETAl: No obvious deformities NEURO: Alert. Moving 4/4 extremities SKIN:: Two surgical incisions upper right and upper left chest fromport placement and removal. No signs of infection. no skin breakdown PSYCHIATRIC: Normal affect Const: General: cooperative, comfortable, no acute distress, ill appearing and tired appearing Orientation/consciousness: patient oriented x3 HENMT: Head: normal to inspection, normocephalic and atraumatic Eyes: General: appearance normal, both eyes and all related structures Neck: Neck: normal visual inspection and no lymphadenopathy Resp: Auscultation: diminished lung sounds Cardio: Rate: regular rate Rhythm: regular rhythm GI: Inspection: normal to inspection and distended Skin: General skin exam: normal color and no rashes or lesions noted Neuro: General: patient oriented x3 and CN's II-XI intact bilaterally Extrem: General: normal to inspection and full ROM Objective Data Vital Signs Vital Signs: Vital Signs - 24 hr 06/25/24 11:09 06/25/24 12:00 06/25/24 12:02 Temperature 97.9 F Pulse Rate 77 84 83 Respiratory Rate 16 Blood Pressure 164/65 H Pulse Oximetry 96 Oxygen Delivery 06/25/24 16:00 06/25/24 16:02 06/25/24 20:00 Temperature 97.5 F L Pulse Rate 81 73 Respiratory Rate 16 Blood Pressure 180/77 H Pulse Oximetry 96 Oxygen Delivery Room Air 06/25/24 20:00 06/25/24 21:03 06/25/24 21:35 Temperature 97.2 F L Pulse Rate 76 82 78 Respiratory Rate 18 Blood Pressure 179/81 H Pulse Oximetry 96 96 Oxygen Delivery 06/26/24 00:00 06/26/24 04:00 06/26/24 06:34 Temperature 98.7 F Pulse Rate 69 72 80 Respiratory Rate 16 Blood Pressure 158/76 H Pulse Oximetry 98 Oxygen Delivery 06/26/24 08:00 06/26/24 08:00 06/26/24 08:30 Temperature 98.3 F Pulse Rate 73 72 Respiratory Rate 16 Blood Pressure 170/70 H Pulse Oximetry 96 Oxygen Delivery Room Air Intake/Output Intake/Output: Intake & Output 06/23/24 06/24/24 06/25/24 06/26/24 23:59 23:59 23:59 23:59 Intake Total 1408 1740 1010 670 Output Total 3000 1000 300 Balance -1592 740 710 670 Meds/Results Medications: Active Medications Generic Name Dose Route Start Last Admin Trade Name Freq PRN Reason Stop Dose Admin Acetaminophen 650 mg 06/22/24 13:55 06/24/24 16:37 Acetaminophen 325 Mg Tablet PO 650 mg Q4H PRN Administration Mild Pain (1-3) or Fever Dexamethasone 20 mg 06/26/24 09:00 06/26/24 08:34 Dexamethasone 4 Mg Tablet PO Not Given Mo@0900 EZRA Dextrose 12.5 gm 06/22/24 18:54 Dextrose 50% 25 Gm/50 Ml Syringe IV PUSH PRN PRN Hypoglycemia Protocol Diphenhydramine HCl 25 mg 06/23/24 18:10 06/25/24 20:46 Diphenhydramine Hcl Inj 50 Mg/Ml Vial IV PUSH 25 mg Q4H PRN Administration Itching Enoxaparin Sodium 40 mg 06/23/24 09:00 06/26/24 08:30 Enoxaparin 40 Mg/0.4 Ml Syringe SUB-Q 40 mg DAILY EZRA Administration Glucagon 1 mg 06/22/24 18:54 Glucagon For Inj 1 Mg Vial IM PRN PRN Hypoglycemia Protocol Glucose 15 gm 06/22/24 18:54 Glucose Oral Gel 15 Gm Of Glucse In 37.5 Gm Tube PO PRN PRN Hypoglycemia Protocol Hydralazine HCl 10 mg 06/23/24 11:54 06/23/24 13:10 Hydralazine Hcl 20 Mg/Ml Vial IV PUSH 10 mg Q8H PRN Administration Blood Pressure - High Hydrochlorothiazide 25 mg 06/23/24 09:00 06/26/24 08:30 Hydrochlorothiazide 25 Mg Tablet BY MOUTH 25 mg DAILY EZRA Administration Cefepime HCl 2 gm in 50 mls @ 100 mls/hr 06/22/24 09:00 06/26/24 09:01 Maxipime 2 Gm/Ns 50 Ml IVPB Infused Q12HR EZRA Infusion Dextrose 1,000 mls @ 100 mls/hr 06/22/24 18:54 Dextrose 5% 1,000 Ml IVPB PRN PRN Hypoglycemia Protocol Ibuprofen 600 mg 06/23/24 00:21 Ibuprofen 600 Mg Tablet PO Q6H PRN Cramping Insulin Aspart 2 - 5 units 06/23/24 08:00 06/26/24 08:27 Insulin Aspart (*Bkc) 100 Units/Ml SUB-Q Not Given TIDWM [facility] Protocol Levothyroxine Sodium 50 mcg 06/23/24 06:30 06/26/24 06:23 Levothyroxine Sodium 50 Mcg Tablet PO 50 mcg DAILY@0630 [facility] Administration Lidocaine 1 patch 06/23/24 09:00 06/26/24 08:31 Lidocaine 5% Patch TOPICAL Not Given DAILY [facility] Lidocaine/Prilocaine 1 each 06/22/24 18:23 Lidocaine/Prilocaine Cream 2.5-2.5% Tube TOPICAL PRN PRN Port Access Melatonin 5 mg 06/22/24 23:40 06/25/24 20:46 Melatonin 5 Mg Tablet PO 5 mg HS [facility] Administration Metoprolol Succinate 100 mg 06/23/24 09:00 06/26/24 08:30 Metoprolol Succinate Ext Rel 100 Mg Tabcr PO 100 mg DAILY [facility] Administration Metronidazole 500 mg 06/26/24 14:00 Metronidazole 500 Mg Tablet PO Q8HR [facility] Montelukast Sodium 10 mg 06/23/24 09:00 06/26/24 08:30 Montelukast Sodium 10 Mg Tablet PO 10 mg DAILY [facility] Administration Morphine Sulfate 1 mg 06/23/24 18:10 06/25/24 20:46 Morphine Sulfate (*Crx) 2 Mg/Ml Inj IV PUSH 1 mg Q4H PRN Administration Pain Rated 7-10 Multi-Ingred Cream/Lotion/Oil/Oint 1 applic 06/22/24 21:00 Mineral Oil/White Petrolatum Ointment EACH EYE Q12H PRN Dry Eyes Multivitamins Therapeutic 1 tablet 06/23/24 09:00 06/26/24 08:30 Multivitamins Therapeutic Tab (*Bkc) PO 1 tablet DAILY [facility] Administration Home Med ( 1 applic 06/24/24 21:00 06/26/24 08:31 Metronidazole 1 % TOPICAL 07/24/24 20:59 1 applic Gel With Pump) Q12HR [facility] Administration Home Med ( 25 mg 06/24/24 17:00 06/25/24 17:16 Milnacipran [Savella PO 07/24/24 16:59 25 mg ] 25 Mg Tablet) DAILY@1700 EZRA Administration Ondansetron HCl 4 mg 06/22/24 10:19 Ondansetron Inj 4 Mg/2 Ml Vial IV PUSH Q6H PRN Nausea And Vomiting Ondansetron HCl 4 mg 06/22/24 17:21 06/23/24 01:11 Ondansetron Inj 4 Mg/2 Ml Vial IV PUSH 4 mg Q4H PRN Administration Nausea And Vomiting Ondansetron HCl 8 mg 06/22/24 19:11 Ondansetron Hcl Odt 4 Mg Tablet PO Q8H PRN Nausea And Vomiting Pantoprazole Sodium 40 mg 06/24/24 10:35 06/26/24 08:30 Pantoprazole 40 Mg Tablet PO 40 mg QAM EZRA Administration Perflutren Lipid Microsphere 0 ml 06/23/24 11:54 Perflutren Lipid Microspheres 1.5 Ml Vial Diluted To 10 Ml Total Volume IV PUSH 06/26/24 11:56 ONCE PRN adequate visualization Protocol Ramipril 10 mg 06/24/24 17:00 06/25/24 17:16 Ramipril 5 Mg Capsule PO 10 mg 1700 EZRA Administration Radiology Results: ITS Impressions Head CT 06/21/24 20:54 IMPRESSION: No acute intracranial process. Chest/Abdomen/Pelvis CT 06/21/24 20:56 IMPRESSION: Mild esophagitis/gastritis. Mild dilation of a loop of jejunum in the mid abdomen, presumably secondary to focal ileus. Early obstruction not excluded. Multiple pancreatic cysts measuring up to 1.2 cm, demonstrating interval growth since 08/10/2020 examination. Consider follow-up with contrast enhanced MRI or pancreas protocol CT in one year, depending on the patient's overall health and preferences and if a surgical candidate. Severe disc space narrowing at L3-4 with erosive changes, may be secondary to osteomyelitis/discitis, neuropathic changes, or inflammatory arthropathy. Consider MR lumbar spine without and with contrast. Lumbar Spine MRI 06/22/24 13:57 IMPRESSION: 1. Severe lumbar spondylosis, advanced with Modic type III degenerative endplate changes at L3-L4. No findings to suggest discitis or osteomyelitis. 2. Diffuse heterogeneous marrow signal which could represent combination of red and yellow marrow or be related to reported known multiple myeloma. Chest X-Ray 06/22/24 21:31 IMPRESSION: Left basilar atelectasis versus pneumonia. Abdomen X-Ray 06/23/24 05:50 Impression: Nonspecific bowel gas pattern. Labs Labs: Laboratory Results - last 24 hr 06/25/24 06/25/24 06/25/24 12:15 16:51 21:06 WBC RBC Hgb Hct MCV MCH MCHC RDW Plt Count MPV Immature Gran % (Auto) Neut % (Auto) Lymph % (Auto) [place]vert % (Auto) Eos % (Auto) Baso % (Auto) Lymph # (Auto) [place]vert # (Auto) Eos # (Auto) Baso # (Auto) Abs Immat Gran (auto) Absolute Neuts (auto) Absolute Nucleated RBC Nucleated RBC % Sodium Potassium Chloride Carbon Dioxide Anion Gap BUN Creatinine Estim Creat Clear Calc Estimated GFR Glucose POC Capillary Glucose 159 H 111 H 122 H Calcium Magnesium Total Bilirubin AST ALT Alkaline Phosphatase Total Protein Albumin 06/26/24 06/26/24 08:14 09:34 WBC 4.7 RBC 3.04 L Hgb 10.0 L Hct 30.0 L MCV 98.7 MCH 32.9 MCHC 33.3 RDW 16.3 H Plt Count 125 L MPV 10.2 Immature Gran % (Auto) 0.2 Neut % (Auto) 60.3 Lymph % (Auto) 17.8 L [place]vert % (Auto) 14.9 H Eos % (Auto) 5.7 H Baso % (Auto) 1.1 Lymph # (Auto) 0.84 L Calvert # (Auto) 0.7 H Eos # (Auto) 0.3 Baso # (Auto) 0.1 Abs Immat Gran (auto) 0.01 Absolute Neuts (auto) 2.8 Absolute Nucleated RBC 0.000 Nucleated RBC % 0.0 Sodium 131 L Potassium 3.8 Chloride 101 Carbon Dioxide 29 Anion Gap 1 L BUN 13 Creatinine 0.70 Estim Creat Clear Calc 62 Estimated GFR > 60 Glucose 142 H POC Capillary Glucose 128 H Calcium 7.3 L Magnesium 1.7 Total Bilirubin 0.8 AST 25 ALT 20 Alkaline Phosphatase 45 Total Protein 6.0 L Albumin 3.6 Hospitalist MIPS Advance Care Plan I have confirmed that the patient's Advanced Care Plan is present, code status is documented, or surrogate decision maker is listed in patient medical record.: Yes Medication Reconciliation I have utilized all available resources to obtain, update and review the patients current medications (includes all prescriptions, OTC, herbals, cannabis, and nutritional supplements).: Yes
[2024-06-26 12:48] LABS: Glucose Point of Care 121 mg/dl (65-105)
--- NOTE | 2024-06-26 13:50 | PCDIET ---
Spoke with diet office, patient is requesting diet supplements. Orders for Glucerna shakes BID for additional 220 kcal and 10 gm protein. Agree with diet orders.
[2024-06-26] MEDS: metroNIDAZOLE 500 MG TABLET PO ×2 (13:57→21:27)
[2024-06-26 16:23] LABS: Glucose Point of Care 95 mg/dl (65-105)
[2024-06-26] MEDS: MILNACIPRAN 25 MG 25 EACH PO (16:40)
[2024-06-26] MEDS: ramipriL 5 MG CAPSULE 10 MG PO (16:40)
[2024-06-26 20:20] LABS: Glucose Point of Care 123 mg/dl (65-105)
[2024-06-26] MEDS: MELATONIN 5 MG TABLET PO (20:20)
[2024-06-26] MEDS: diphenhydrAMINE HCl INJ 50 MG/ML VIAL 25 MG IV PUSH (20:31)
[2024-06-27] VITALS (11 sets, daily range): BP systolic 144–156; BP diastolic 53–76; PULSE 65–105; RESP 12–18; TEMP 36.2–36.5; O2SAT 96–100
[2024-06-27] MEDS: ACETAMINOPHEN 325 MG TABLET 650 MG PO (01:22)
[2024-06-27] MEDS: metroNIDAZOLE 500 MG TABLET PO ×3 (05:39→21:01)
[2024-06-27] MEDS: LEVOTHYROXINE SODIUM 50 MCG TABLET PO (05:39)
[2024-06-27 07:18] LABS: Basophils Absolute Auto 0.1 K/mm3 (0.0-0.1); Basophils Percent Auto 1.4 % (0.2-1.2); Eosinophils Absolute Auto 0.4 K/mm3 (0-0.3); Eosinophils Percent Auto 6.3 % (0-4.4); Hematocrit 34.4 % (37.0-47.0); Hemoglobin 11.1 g/dL (12.0-15.0); Immature Granulocyte Absolute 0.02 K/mm3 (0.00-0.031); Immature Granulocyte Percent A 0.3 % (0-0.5); Lymphocytes Percent Auto 20.9 % (18.3-44.2); Mean Corpuscular HGB Conc 32.3 g/dl (32-36); Mean Corpuscular Hemoglobin 32.2 pg (26-34); Mean Corpuscular Volume 99.7 fl (80-100); Mean Platelet Volume 10.5 fl (7.4-10.4); Monocytes Percent Auto 16.5 % (2.6-8.5); Neutrophils Absolute Auto 3.1 K/mm3 (1.3-6.7); Neutrophils Percent Auto 54.6 % (45.5-73.1); Platelet Count Result 151 k/mm3 (150-375); Red Blood Count 3.45 M/mm3 (4.2-5.4); Red Cell Distribution Width 16.3 % (11.5-14.5); White Blood Count 5.8 K/mm3 (4.5-10.0)
[2024-06-27 07:27] LABS: Alanine Aminotransferase 23 U/L (6-35); Albumin Level 3.9 g/dL (3.5-5.1); Alkaline Phosphatase 42 U/L (38-126); Anion Gap 9 mmol/L (4-12); Aspartate Amino Transferase 25 U/L (14-36); Bilirubin,Total 0.9 mg/dL (0.2-1.3); Blood Urea Nitrogen 15 mg/dL (7-17); Calcium 7.4 mg/dL (8.4-10.2); Carbon Dioxide 23 mmol/L (22-30); Chloride 99 mmol/L (98-107); Estimated CRCL calculation 66 ml/min; Estimated Glomerular Filt Rate > 60; Glucose 130 mg/dL (65-110); Potassium 3.6 mmol/L (3.4-5.0); Sodium 131 mmol/L (137-145)
[2024-06-27 07:45] LABS: Glucose Point of Care 129 mg/dl (65-105)
--- NOTE | 2024-06-27 09:27 | PM.IMPN ---
Progress Note: A&P Assessment and Plan (1) Myeloma: Code(s): C90.00 - Multiple myeloma not having achieved remission Status: Acute (2) Ileus: Code(s): K56.7 - Ileus, unspecified Status: Acute (3) Port-A-Cath in place: Code(s): Z95.828 - Presence of other vascular implants and grafts Status: Acute Plan Off note: The patient has polypharmacy. She is not able to verify the medication she is taking. She is taking Bactrim and dexamethasone for PCP prophylaxis. The patient was evaluated by an on-call lace stripper, who recommended stopping dexamethasone and Lenalidomide. Under her allergy list, the patient is allergic to sulfa. When asked about Bactrim, the patient had no idea whether she was taking it or not.Her dexamethasone is listed as once a week. I did not stop the dexamethasone due to the risk of adrenal crisis.I advised the patient after the discharge she needs to go to PCP and Heme-Onc () and get the bottles and verify with both them the medications she is taking. She reports having trouble seeing PCP due to her insurance issues. The patient also follows up with pain management. On 06/22 the patient was admitted due to nausea, vomiting, and a few episodes of diarrhea. The admitting team started the patient on metronidazole, cefepime, and vancomycin. Since the nasal MRSA was negative, vancomycin has been discontinued. The CT abdomen shows mild dilation of the loop of jejunum in the mid-abdomen, presumably secondary to focal ileus. Early obstruction is not included. The patient is started on metronidazole. Surgery was consulted, and he agreed to a clear liquid diet to advance as tolerated. The patient had a left side port, a cath, which was placed in January 2024 but was not working correctly. It was replaced on the right side about a week ago.The echocardiogram shows Left ventricular systolic function is normal, estimated at 55-60%. MM Neutropenic precautions Started on cefepime prophylactically Nasal MRSA negative Watch for any abnormal vitals Ordered Hematology consult Focal Ileus On metronidazole Will continue monitor Continue clear liquid advanced as tolerated Surgery following Hypertension Continue hydrochlorothiazide 25 mg p.o. q.d. Hydralazine 10 mg IV q.6 hours p.r.n. if blood pressure greater than 160/90 Metoprolol succinate 100 mg p.o. q.d. Follows pain management as an outpatient DVT prophylaxis: Lovenox 40 mg GI prophylaxis: Pantoprazole 40 mg Subjective Date/time seen: 06/27/24 09:27 Interval history: Patient continue to feel better. Today discontinued cefepime and started Amoxil a and changed her metronidazole from IV to p.o.. Possible discharge tomorrow. Off note: The patient has polypharmacy. She is not able to verify the medication she is taking. She is taking Bactrim and dexamethasone for PCP prophylaxis. The patient was evaluated by an on-call lace stripper, who recommended stopping dexamethasone and Lenalidomide. Under her allergy list, the patient is allergic to sulfa. When asked about Bactrim, the patient had no idea whether she was taking it or not.Her dexamethasone is listed as once a week. I did not stop the dexamethasone due to the risk of adrenal crisis.I advised the patient after the discharge she needs to go to PCP and Heme-Onc () and get the bottles and verify with both them the medications she is taking. She reports having trouble seeing PCP due to her insurance issues. The patient also follows up with pain management. On 06/22 the patient was admitted due to nausea, vomiting, and a few episodes of diarrhea. The admitting team started the patient on metronidazole, cefepime, and vancomycin. Since the nasal MRSA was negative, vancomycin has been discontinued. The CT abdomen shows mild dilation of the loop of jejunum in the mid-abdomen, presumably secondary to focal ileus. Early obstruction is not included. The patient is started on metronidazole. Surgery was consulted, and he agreed to a clear liquid diet to advance as tolerated. The patient had a left side port, a cath, which was placed in January 2024 but was not working correctly. It was replaced on the right side about a week ago.The echocardiogram shows Left ventricular systolic function is normal, estimated at 55-60%. Review of Systems Review of Systems: All systems reviewed & are unremarkable except as noted in HPI and below Exam Narrative: APPEARANCE: No apparent distress. A&O times 1-2 Head: atraumatic. EYES: EOMI, NOSE: Atraumatic NECK: Trachea midline RESPIRATORY: No increased rate of breathing clear to auscultation CARDIOVASCULAR: RRR,No peripheral edema. ABDOMINAL: Non-distended MUSCULOSKELETAl: No obvious deformities NEURO: Alert. Moving 4/4 extremities SKIN:: Two surgical incisions upper right and upper left chest fromport placement and removal. No signs of infection. no skin breakdown PSYCHIATRIC: Normal affect Const: General: cooperative, comfortable, no acute distress, ill appearing and tired appearing Orientation/consciousness: patient oriented x3 HENMT: Head: normal to inspection, normocephalic and atraumatic Eyes: General: appearance normal, both eyes and all related structures Neck: Neck: normal visual inspection and no lymphadenopathy Resp: Auscultation: diminished lung sounds Cardio: Rate: regular rate Rhythm: regular rhythm GI: Inspection: normal to inspection and distended Skin: General skin exam: normal color and no rashes or lesions noted Neuro: General: patient oriented x3 and CN's II-XI intact bilaterally Extrem: General: normal to inspection and full ROM Objective Data Vital Signs Vital Signs: Vital Signs - 24 hr 06/26/24 12:00 06/26/24 12:00 06/26/24 16:00 Temperature 97.7 F 98.0 F Pulse Rate 71 71 87 Respiratory Rate 16 16 Blood Pressure 160/66 H 131/63 Pulse Oximetry 93 100 Oxygen Delivery 06/26/24 16:00 06/26/24 20:00 06/26/24 20:00 Temperature 97.6 F Pulse Rate 73 73 72 Respiratory Rate 12 Blood Pressure 179/68 H Pulse Oximetry 98 Oxygen Delivery 06/26/24 22:20 06/27/24 00:00 06/27/24 00:00 Temperature 97.6 F Pulse Rate 70 69 Respiratory Rate 12 Blood Pressure 156/68 H Pulse Oximetry 97 Oxygen Delivery CPAP 06/27/24 04:00 06/27/24 04:00 Temperature 97.4 F L Pulse Rate 65 65 Respiratory Rate 14 Blood Pressure 145/53 H Pulse Oximetry 99 Oxygen Delivery Intake/Output Intake/Output: Intake & Output 06/24/24 06/25/24 06/26/24 06/27/24 23:59 23:59 23:59 23:59 Intake Total 1740 1010 870 250 Output Total 1000 300 Balance 740 710 870 250 Meds/Results Medications: Active Medications Generic Name Dose Route Start Last Admin Trade Name Freq PRN Reason Stop Dose Admin Acetaminophen 650 mg 06/22/24 13:55 06/27/24 01:22 Acetaminophen 325 Mg Tablet PO 650 mg Q4H PRN Administration Mild Pain (1-3) or Fever Amoxicillin/Clavulanate Potassium 1 tablet 06/27/24 09:30 Amoxicillin/Clavulanate K 875-125 Mg Tab PO 06/28/24 21:01 Q12HR EZRA Dexamethasone 20 mg 06/26/24 09:00 06/26/24 08:34 Dexamethasone 4 Mg Tablet PO Not Given Mo@0900 EZRA Dextrose 12.5 gm 06/22/24 18:54 Dextrose 50% 25 Gm/50 Ml Syringe IV PUSH PRN PRN Hypoglycemia Protocol Diphenhydramine HCl 25 mg 06/23/24 18:10 06/26/24 20:31 Diphenhydramine Hcl Inj 50 Mg/Ml Vial IV PUSH 25 mg Q4H PRN Administration Itching Enoxaparin Sodium 40 mg 06/23/24 09:00 06/26/24 08:30 Enoxaparin 40 Mg/0.4 Ml Syringe SUB-Q 40 mg DAILY EZRA Administration Glucagon 1 mg 06/22/24 18:54 Glucagon For Inj 1 Mg Vial IM PRN PRN Hypoglycemia Protocol Glucose 15 gm 06/22/24 18:54 Glucose Oral Gel 15 Gm Of Glucse In 37.5 Gm Tube PO PRN PRN Hypoglycemia Protocol Hydralazine HCl 10 mg 06/23/24 11:54 06/23/24 13:10 Hydralazine Hcl 20 Mg/Ml Vial IV PUSH 10 mg Q8H PRN Administration Blood Pressure - High Hydrochlorothiazide 25 mg 06/23/24 09:00 06/26/24 08:30 Hydrochlorothiazide 25 Mg Tablet BY MOUTH 25 mg DAILY EZRA Administration Dextrose 1,000 mls @ 100 mls/hr 06/22/24 18:54 Dextrose 5% 1,000 Ml IVPB PRN PRN Hypoglycemia Protocol Ibuprofen 600 mg 06/23/24 00:21 Ibuprofen 600 Mg Tablet PO Q6H PRN Cramping Insulin Aspart 2 - 5 units 06/23/24 08:00 06/27/24 07:43 Insulin Aspart (*Bkc) 100 Units/Ml SUB-Q Not Given TIDWM [facility] Protocol Levothyroxine Sodium 50 mcg 06/23/24 06:30 06/27/24 05:39 Levothyroxine Sodium 50 Mcg Tablet PO 50 mcg DAILY@0630 [facility] Administration Lidocaine 1 patch 06/23/24 09:00 06/26/24 08:31 Lidocaine 5% Patch TOPICAL Not Given DAILY [facility] Lidocaine/Prilocaine 1 each 06/22/24 18:23 Lidocaine/Prilocaine Cream 2.5-2.5% Tube TOPICAL PRN PRN Port Access Melatonin 5 mg 06/22/24 23:40 06/26/24 20:20 Melatonin 5 Mg Tablet PO 5 mg HS EZRA Administration Metoprolol Succinate 100 mg 06/23/24 09:00 06/26/24 08:30 Metoprolol Succinate Ext Rel 100 Mg Tabcr PO 100 mg DAILY EZRA Administration Metronidazole 500 mg 06/26/24 14:00 06/27/24 05:39 Metronidazole 500 Mg Tablet PO 06/28/24 23:59 500 mg Q8HR EZRA Administration Montelukast Sodium 10 mg 06/23/24 09:00 06/26/24 08:30 Montelukast Sodium 10 Mg Tablet PO 10 mg DAILY EZRA Administration Morphine Sulfate 1 mg 06/23/24 18:10 06/25/24 20:46 Morphine Sulfate (*Crx) 2 Mg/Ml Inj IV PUSH 1 mg Q4H PRN Administration Pain Rated 7-10 Multi-Ingred Cream/Lotion/Oil/Oint 1 applic 06/22/24 21:00 Mineral Oil/White Petrolatum Ointment EACH EYE Q12H PRN Dry Eyes Multivitamins Therapeutic 1 tablet 06/23/24 09:00 06/26/24 08:30 Multivitamins Therapeutic Tab (*Bkc) PO 1 tablet DAILY EZRA Administration Home Med ( 1 applic 06/24/24 21:00 06/26/24 20:21 Metronidazole 1 % TOPICAL 07/24/24 20:59 1 applic Gel With Pump) Q12HR EZRA Administration Home Med ( 25 mg 06/24/24 17:00 06/26/24 16:40 Milnacipran [Savella PO 07/24/24 16:59 25 mg ] 25 Mg Tablet) DAILY@1700 EZRA Administration Ondansetron HCl 4 mg 06/22/24 10:19 Ondansetron Inj 4 Mg/2 Ml Vial IV PUSH Q6H PRN Nausea And Vomiting Ondansetron HCl 4 mg 06/22/24 17:21 06/23/24 01:11 Ondansetron Inj 4 Mg/2 Ml Vial IV PUSH 4 mg Q4H PRN Administration Nausea And Vomiting Ondansetron HCl 8 mg 06/22/24 19:11 Ondansetron Hcl Odt 4 Mg Tablet PO Q8H PRN Nausea And Vomiting Pantoprazole Sodium 40 mg 06/24/24 10:35 06/26/24 08:30 Pantoprazole 40 Mg Tablet PO 40 mg QAM EZRA Administration Ramipril 10 mg 06/24/24 17:00 06/26/24 16:40 Ramipril 5 Mg Capsule PO 10 mg 1700 EZRA Administration Radiology Results: ITS Impressions Head CT 06/21/24 20:54 IMPRESSION: No acute intracranial process. Chest/Abdomen/Pelvis CT 06/21/24 20:56 IMPRESSION: Mild esophagitis/gastritis. Mild dilation of a loop of jejunum in the mid abdomen, presumably secondary to focal ileus. Early obstruction not excluded. Multiple pancreatic cysts measuring up to 1.2 cm, demonstrating interval growth since 08/10/2020 examination. Consider follow-up with contrast enhanced MRI or pancreas protocol CT in one year, depending on the patient's overall health and preferences and if a surgical candidate. Severe disc space narrowing at L3-4 with erosive changes, may be secondary to osteomyelitis/discitis, neuropathic changes, or inflammatory arthropathy. Consider MR lumbar spine without and with contrast. Lumbar Spine MRI 06/22/24 13:57 IMPRESSION: 1. Severe lumbar spondylosis, advanced with Modic type III degenerative endplate changes at L3-L4. No findings to suggest discitis or osteomyelitis. 2. Diffuse heterogeneous marrow signal which could represent combination of red and yellow marrow or be related to reported known multiple myeloma. Chest X-Ray 06/22/24 21:31 IMPRESSION: Left basilar atelectasis versus pneumonia. Abdomen X-Ray 06/23/24 05:50 Impression: Nonspecific bowel gas pattern. Labs Labs: Laboratory Results - last 24 hr 06/26/24 06/26/24 06/26/24 09:34 12:22 16:04 WBC 4.7 RBC 3.04 L Hgb 10.0 L Hct 30.0 L MCV 98.7 MCH 32.9 MCHC 33.3 RDW 16.3 H Plt Count 125 L MPV 10.2 Immature Gran % (Auto) 0.2 Neut % (Auto) 60.3 Lymph % (Auto) 17.8 L [place] % (Auto) 14.9 H Eos % (Auto) 5.7 H Baso % (Auto) 1.1 Lymph # (Auto) 0.84 L [place] # (Auto) 0.7 H Eos # (Auto) 0.3 Baso # (Auto) 0.1 Abs Immat Gran (auto) 0.01 Absolute Neuts (auto) 2.8 Absolute Nucleated RBC 0.000 Nucleated RBC % 0.0 Sodium 131 L Potassium 3.8 Chloride 101 Carbon Dioxide 29 Anion Gap 1 L BUN 13 Creatinine 0.70 Estim Creat Clear Calc 62 Estimated GFR > 60 Glucose 142 H POC Capillary Glucose 121 H 95 Calcium 7.3 L Magnesium 1.7 Total Bilirubin 0.8 AST 25 ALT 20 Alkaline Phosphatase 45 Total Protein 6.0 L Albumin 3.6 06/26/24 06/27/24 06/27/24 19:52 06:55 07:36 WBC 5.8 RBC 3.45 L Hgb 11.1 L Hct 34.4 L MCV 99.7 MCH 32.2 MCHC 32.3 RDW 16.3 H Plt Count 151 MPV 10.5 H Immature Gran % (Auto) 0.3 Neut % (Auto) 54.6 Lymph % (Auto) 20.9 [place] % (Auto) 16.5 H Eos % (Auto) 6.3 H Baso % (Auto) 1.4 H Lymph # (Auto) 1.20 [place] # (Auto) 1.0 H Eos # (Auto) 0.4 H Baso # (Auto) 0.1 Abs Immat Gran (auto) 0.02 Absolute Neuts (auto) 3.1 Absolute Nucleated RBC 0.000 Nucleated RBC % 0.0 Sodium 131 L Potassium 3.6 Chloride 99 Carbon Dioxide 23 Anion Gap 9 BUN 15 Creatinine 0.66 L Estim Creat Clear Calc 66 Estimated GFR > 60 Glucose 130 H POC Capillary Glucose 123 H 129 H Calcium 7.4 L Magnesium 2.0 Total Bilirubin 0.9 AST 25 ALT 23 Alkaline Phosphatase 42 Total Protein 6.0 L Albumin 3.9 Hospitalist MIPS Advance Care Plan I have confirmed that the patient's Advanced Care Plan is present, code status is documented, or surrogate decision maker is listed in patient medical record.: Yes Medication Reconciliation I have utilized all available resources to obtain, update and review the patients current medications (includes all prescriptions, OTC, herbals, cannabis, and nutritional supplements).: Yes
[2024-06-27] MEDS: LIDOCAINE 5% PATCH 1 PATCH TOPICAL (09:58)
[2024-06-27] MEDS: METOPROLOL SUCCINATE EXT REL 100 MG TABCR PO (09:59)
[2024-06-27] MEDS: MONTELUKAST SODIUM 10 MG TABLET PO (09:59)
[2024-06-27] MEDS: ENOXAPARIN 40 MG/0.4 ML SYRINGE SUB-Q (09:59)
[2024-06-27] MEDS: MULTIVITAMINS THERAPEUTIC TAB (*BKC) 1 TABLET PO (09:59)
[2024-06-27] MEDS: hydroCHLOROthiazide 25 MG TABLET BY MOUTH (10:00)
[2024-06-27] MEDS: AMOXICILLIN/CLAVULANATE K 875-125 MG TAB 1 TABLET PO ×2 (10:00→21:01)
[2024-06-27] MEDS: PANTOPRAZOLE 40 MG TABLET PO (10:00)
[2024-06-27] MEDS: METRONIDAZOLE 1% TOPICAL ×2 (10:01→21:07)
[2024-06-27] MEDS: PUMP TOPICAL ×2 (10:01→21:07)
[2024-06-27 12:34] LABS: Glucose Point of Care 135 mg/dl (65-105)
--- NOTE | 2024-06-27 14:36 | WPDCN ---
HPI Data of Consult Date/Time: 06/27/24 14:36 Requesting Physician: Nikolai Schroeder MD Primary Care Provider: UNKNOWN,DOCTOR Consult Narrative Narrative: Sloane Elise is a 83 year old female Review of Systems Review of Systems: Patient abdominal pain is much improved. Bowel sounds are normal. CBC is stable; SPE is pending. [facility] Past Medical History Medical History Myeloma Walker as ambulation aid Pulmonary hypertension HONG (obstructive sleep apnea) Hyperlipidemia Hypertension PMR (polymyalgia rheumatica) Chronic pain Fibromyalgia Insomnia Sleep apnea in adult Surgical History Surgical History H/O: hysterectomy History of esophagogastroduodenoscopy (EGD) H/O bladder repair surgery Hx of tonsillectomy H/O adenoidectomy Family History Family History Mother Family history of thyroid disease, Onset Age: 48 Father Family history of coronary artery disease, Onset Age: 94 Family history of congestive heart failure, Onset Age: 94 Sibling Diabetes mellitus Other Family history of cardiovascular disease Family history of elevated blood lipids No family history of malignant neoplasm Social History Social History Smoking status: Never smoker Second hand tobacco smoke exposure: No Alcohol intake: never Substance use: never Lack of Transportation: No Lack of Food: Sometimes True Current Housing: I Have Housing Concerned About Future Housing: No Difficulty Paying Gas/Electric Bills: No Difficulty Paying for Meds: No Currently Unemployed: No Education: High School Diploma/GED Difficulty w/ Childcare or Family Care: No Living arrangements: with family Additional living arrangements comments: Spiritual care concerns: No Meds Home Medications and Allergies Home Medications ?Medication ?Instructions ?Recorded ?Confirmed ?Type omeprazole 20 mg capsule,delayed 20 mg PO DAILY 05/29/19 06/22/24 History release glucosamine [id number] See Rx Instructions PO DAILY 10/06/19 06/22/24 History 400 mg-200 mg-333 mg tablet multivitamin 1 tablet PO DAILY 10/06/19 06/22/24 History aspirin 81 mg tablet,delayed 81 mg PO DAILY 07/31/21 06/22/24 History release fluticasone propionate 50 2 spray intranasal BID #36.4 mL 09/15/22 06/22/24 Rx mcg/actuation nasal spray,suspension acetaminophen 650 mg 1,300 mg PO Q12H PRN Pain 01/28/23 06/22/24 History tablet,extended release (Tylenol Arthritis Pain) artificial tears with lanolin eye 1 applic EACH EYE 4-12XD PRN Dry 01/28/23 06/22/24 History ointment Eyes biotin 10,000 mcg capsule 10,000 mcg PO DAILY 01/28/23 06/22/24 History fish, borage, flaxseed oils-omega 1 cap PO DAILY 01/28/23 06/22/24 History 3,6,9 comb no.1 1,200 mg capsule ([place] 3-6-9) turmeric root extract 500 mg 500 mg PO BID 01/28/23 06/22/24 History capsule montelukast 10 mg tablet See Rx Instructions .Route 12/24/23 06/22/24 Rx .COMPLEX #90 tabs ramipril 10 mg capsule 10 mg PO DAILY #90 caps 01/03/24 06/22/24 Rx metformin 500 mg tablet,extended 500 mg PO DAILY #90 tabs 01/13/24 06/22/24 Rx release 24 hr triamcinolone acetonide 0.1 % 1 applic topical PRN PRN Skin 01/27/24 06/22/24 History topical cream Irritation acyclovir 400 mg tablet 400 mg PO DAILY 02/11/24 06/22/24 History dexamethasone 4 mg tablet 4 mg PO DIRECTED 02/11/24 06/22/24 History ondansetron 8 mg disintegrating 8 mg PO Q8H PRN Nausea And Vomiting 02/11/24 06/22/24 History tablet sulfamethoxazole 800 800 tablet PO QMWF 02/11/24 06/22/24 History mg-trimethoprim 160 mg tablet metronidazole 1 % topical gel with See Rx Instructions .Route 02/28/24 06/22/24 Rx pump .COMPLEX #55 grams levothyroxine 50 mcg tablet See Rx Instructions .Route 03/13/24 06/22/24 Rx .COMPLEX #90 tabs ezetimibe 10 mg tablet See Rx Instructions .Route 03/16/24 06/22/24 Rx .COMPLEX #90 tabs eszopiclone 3 mg tablet (Lunesta) 3 mg PO QHS PRN insomnia #30 tabs 03/30/24 06/22/24 Rx hydrochlorothiazide 25 mg tablet See Rx Instructions .Route 04/10/24 06/22/24 Rx .COMPLEX #90 tabs atorvastatin 20 mg tablet (Lipitor) 20 mg PO QHS #90 tabs 04/26/24 06/22/24 Rx gabapentin 600 mg tablet 600 mg PO QID #360 tabs 05/01/24 06/22/24 Rx milnacipran 25 mg tablet (Savella) 25 mg PO DAILY 30 days #30 tabs 05/03/24 06/22/24 Rx lidocaine 5 % topical patch 1 patch topical DAILY #30 ea 05/16/24 06/22/24 Rx tramadol 50 mg tablet 50 mg PO Q12H PRN pain 06/05/24 06/22/24 History metoprolol succinate 100 mg See Rx Instructions .Route 06/12/24 06/22/24 Rx tablet,extended release 24 hr .COMPLEX #90 tabs acyclovir 400 mg tablet 400 mg PO BID 06/22/24 06/22/24 History atorvastatin 20 mg tablet 20 mg PO DAILY 06/22/24 06/22/24 History dexamethasone 4 mg tablet 20 mg PO WEEKLY 06/22/24 06/22/24 History eszopiclone 3 mg tablet 3 mg PO QHS PRN insomnia 06/22/24 06/22/24 History ezetimibe 10 mg tablet 10 mg PO DAILY 06/22/24 06/22/24 History gabapentin 600 mg tablet 600 mg PO QID 06/22/24 06/22/24 History hydrochlorothiazide 25 mg tablet 25 mg PO DAILY 06/22/24 06/22/24 History lenalidomide 15 mg capsule 15 mg PO DAILY 06/22/24 06/22/24 History (Revlimid) lenalidomide 25 mg capsule mg PO 06/22/24 History (Revlimid) levothyroxine 50 mcg tablet 50 mcg PO .q 0630 06/22/24 06/22/24 History lidocaine 5 % topical patch 1 patch topical DAILY 06/22/24 06/22/24 History lidocaine-prilocaine 2.5 %-2.5 % 1 applic topical PRN PRN Port 06/22/24 06/22/24 History topical cream Access metformin 500 mg tablet,extended 500 mg PO DAILY 06/22/24 06/22/24 History release 24 hr metoprolol succinate 100 mg 100 mg PO DAILY 06/22/24 06/22/24 History tablet,extended release 24 hr metronidazole 1 % topical gel with 1 applic topical BID 06/22/24 06/22/24 History pump milnacipran 25 mg tablet (Savella) 25 mg PO DAILY 06/22/24 06/22/24 History montelukast 10 mg tablet 10 mg PO DAILY 06/22/24 06/22/24 History ondansetron 8 mg disintegrating 8 mg translingual Q8H PRN nausea 06/22/24 06/22/24 History tablet and vomiting ramipril 10 mg capsule 10 mg PO DAILY 06/22/24 06/22/24 History sulfamethoxazole 800 tablet 06/22/24 History mg-trimethoprim 160 mg tablet tramadol 50 mg tablet mg 06/22/24 History Allergies Allergy/AdvReac Type Severity Reaction Status Date / Time doxycycline Allergy Severe Itching Verified 06/22/24 11:30 alprazolam Allergy Intermediate Other-UNABLE Verified 06/22/24 11:30 TO RECALL minocycline Allergy Intermediate Itching, Verified 06/22/24 11:30 HIVES propoxyphene Allergy Intermediate Itching Verified 06/22/24 11:30 carboxymethylcellulose sodium Allergy Mild Other-UNABLE Verified 06/22/24 11:30 TO RECALL duloxetine Allergy Mild Unknown-UNABLE Verified 06/22/24 11:30 TO RECALL indomethacin Allergy Mild Unknown-UNABLE Verified 06/22/24 11:30 TO RECALL linaclotide Allergy Mild Other-UNABLE Verified 06/22/24 11:30 TO RECALL nabumetone Allergy Mild Unknown-UNABLE Verified 06/22/24 11:30 TO RECALL sulfamethoxazole Allergy Mild Unknown-UNABLE Verified 06/22/24 11:30 TO RECALL terbinafine Allergy Mild Unknown-UNABLE Verified 06/22/24 11:30 TO RECALL valdecoxib Allergy Mild Unknown-UNABLE Verified 06/22/24 11:30 TO RECALL etodolac Allergy Unknown UNKNOWN-UNABLE Verified 06/22/24 11:30 TO RECALL chlorpheniramine AdvReac Intermediate HARD TO Verified 06/22/24 11:30 AWAKEN codeine AdvReac Intermediate Nervousness, Verified 06/22/24 11:30 HEART RACES, HEAD FEELS STRANGE dexchlorpheniramine AdvReac Intermediate Other-ZEUS Verified 06/22/24 11:30 RGY levocarnitine AdvReac Intermediate (Trinalin)= Verified 06/22/24 11:30 Nausea levofloxacin AdvReac Intermediate Nausea and Verified 06/22/24 11:30 Vomiting phenylephrine AdvReac Intermediate Other-ZEUS Verified 06/22/24 11:30 RGY phenylpropanolamine AdvReac Intermediate Other- IMMU Verified 06/22/24 11:30 NE rofecoxib AdvReac Intermediate Swelling, Verified 06/22/24 11:30 WATER RETENTION scopolamine AdvReac Intermediate Other-ZEUS Verified 06/22/24 11:30 RGY amitriptyline AdvReac Mild Other-ZEUS Verified 06/22/24 11:30 RGY brompheniramine AdvReac Mild other- TOO Verified 06/22/24 11:30 DRYING carbinoxamine AdvReac Mild Other- TOO Verified 06/22/24 11:30 DRYING diclofenac AdvReac Mild HEARTBURN Verified 06/22/24 11:30 oxybutynin AdvReac Mild Rash Verified 06/22/24 11:30 ramelteon AdvReac Mild Nausea Verified 06/22/24 11:30 terfenadine AdvReac Mild Nausea Verified 06/22/24 11:30 trazodone AdvReac Mild Restless Verified 06/22/24 11:30 Sleep pregabalin (From Lyrica) AdvReac Unknown does not Verified 06/22/24 11:30 remember gabapentin AdvReac does not Verified 06/22/24 11:30 remember Vital Signs Vital Signs - 24 hr 06/26/24 16:00 06/26/24 16:00 06/26/24 20:00 Temperature 36.7 C 36.4 C Pulse Rate 87 73 73 Respiratory Rate 16 12 Blood Pressure 131/63 179/68 H Pulse Oximetry 100 98 Oxygen Delivery 06/26/24 20:00 06/26/24 22:20 06/27/24 00:00 Temperature 36.4 C Pulse Rate 72 70 Respiratory Rate 12 Blood Pressure 156/68 H Pulse Oximetry 97 Oxygen Delivery CPAP 06/27/24 00:00 06/27/24 04:00 06/27/24 04:00 Temperature 36.3 C L Pulse Rate 69 65 65 Respiratory Rate 14 Blood Pressure 145/53 H Pulse Oximetry 99 Oxygen Delivery 06/27/24 08:00 06/27/24 09:59 06/27/24 11:59 Temperature 36.4 C Pulse Rate 71 84 81 Respiratory Rate 15 Blood Pressure 149/76 H Pulse Oximetry 100 Oxygen Delivery 06/27/24 12:00 Temperature Pulse Rate 74 Respiratory Rate Blood Pressure Pulse Oximetry Oxygen Delivery Results Labs 06/27/24 06:55 06/27/24 06:55 Labs: Short CBC 06/27/24 Range/Units 06:55 WBC 5.8 (4.5-10.0) K/mm3 Hgb 11.1 L (12.0-15.0) g/dL Hct 34.4 L (37.0-47.0) % Plt Count 151 (150-375) k/mm3 BMP 06/27/24 06:55 Sodium 131 L Potassium 3.6 Chloride 99 Carbon Dioxide 23 BUN 15 Creatinine 0.66 L Glucose 130 H Calcium 7.4 L Liver Function 06/27/24 Range/Units 06:55 Total Bilirubin 0.9 (0.2-1.3) mg/dL AST 25 (14-36) U/L ALT 23 (6-35) U/L Alkaline Phosphatase 42 (38-126) U/L Albumin 3.9 (3.5-5.1) g/dL Attestation Supervising Provider Attestation Assessment : multiple myeloma on maintenance revlimid and dexamethasone Stable CBC Plan: Continue to monitor CBC Restart revlimid and dexamethasone at discharge.
--- NOTE | 2024-06-27 14:43 | WPDCN ---
HPI Data of Consult Date/Time: 06/27/24 14:43 Requesting Physician: Nikolai Schroeder MD Primary Care Provider: UNKNOWN,DOCTOR Consult Narrative Narrative: Sloane Elise is a 83 year old female FORMERLY [facility], [facility] Past Medical History Medical History Myeloma Walker as ambulation aid Pulmonary hypertension HONG (obstructive sleep apnea) Hyperlipidemia Hypertension PMR (polymyalgia rheumatica) Chronic pain Fibromyalgia Insomnia Sleep apnea in adult Surgical History Surgical History H/O: hysterectomy History of esophagogastroduodenoscopy (EGD) H/O bladder repair surgery Hx of tonsillectomy H/O adenoidectomy Family History Family History Mother Family history of thyroid disease, Onset Age: 48 Father Family history of coronary artery disease, Onset Age: 94 Family history of congestive heart failure, Onset Age: 94 Sibling Diabetes mellitus Other Family history of cardiovascular disease Family history of elevated blood lipids No family history of malignant neoplasm Social History Social History Smoking status: Never smoker Second hand tobacco smoke exposure: No Alcohol intake: never Substance use: never Lack of Transportation: No Lack of Food: Sometimes True Current Housing: I Have Housing Concerned About Future Housing: No Difficulty Paying Gas/Electric Bills: No Difficulty Paying for Meds: No Currently Unemployed: No Education: High School Diploma/GED Difficulty w/ Childcare or Family Care: No Living arrangements: with family Additional living arrangements comments: Spiritual care concerns: No Meds Home Medications and Allergies Home Medications ?Medication ?Instructions ?Recorded ?Confirmed ?Type omeprazole 20 mg capsule,delayed 20 mg PO DAILY 05/29/19 06/22/24 History release glucosamine [id number] See Rx Instructions PO DAILY 10/06/19 06/22/24 History 400 mg-200 mg-333 mg tablet multivitamin 1 tablet PO DAILY 10/06/19 06/22/24 History aspirin 81 mg tablet,delayed 81 mg PO DAILY 07/31/21 06/22/24 History release fluticasone propionate 50 2 spray intranasal BID #36.4 mL 09/15/22 06/22/24 Rx mcg/actuation nasal spray,suspension acetaminophen 650 mg 1,300 mg PO Q12H PRN Pain 01/28/23 06/22/24 History tablet,extended release (Tylenol Arthritis Pain) artificial tears with lanolin eye 1 applic EACH EYE 4-12XD PRN Dry 01/28/23 06/22/24 History ointment Eyes biotin 10,000 mcg capsule 10,000 mcg PO DAILY 01/28/23 06/22/24 History fish, borage, flaxseed oils-omega 1 cap PO DAILY 01/28/23 06/22/24 History 3,6,9 comb no.1 1,200 mg capsule ([place] 3-6-9) turmeric root extract 500 mg 500 mg PO BID 01/28/23 06/22/24 History capsule montelukast 10 mg tablet See Rx Instructions .Route 12/24/23 06/22/24 Rx .COMPLEX #90 tabs ramipril 10 mg capsule 10 mg PO DAILY #90 caps 01/03/24 06/22/24 Rx metformin 500 mg tablet,extended 500 mg PO DAILY #90 tabs 01/13/24 06/22/24 Rx release 24 hr triamcinolone acetonide 0.1 % 1 applic topical PRN PRN Skin 01/27/24 06/22/24 History topical cream Irritation acyclovir 400 mg tablet 400 mg PO DAILY 02/11/24 06/22/24 History dexamethasone 4 mg tablet 4 mg PO DIRECTED 02/11/24 06/22/24 History ondansetron 8 mg disintegrating 8 mg PO Q8H PRN Nausea And Vomiting 02/11/24 06/22/24 History tablet sulfamethoxazole 800 800 tablet PO QMWF 02/11/24 06/22/24 History mg-trimethoprim 160 mg tablet metronidazole 1 % topical gel with See Rx Instructions .Route 02/28/24 06/22/24 Rx pump .COMPLEX #55 grams levothyroxine 50 mcg tablet See Rx Instructions .Route 03/13/24 06/22/24 Rx .COMPLEX #90 tabs ezetimibe 10 mg tablet See Rx Instructions .Route 03/16/24 06/22/24 Rx .COMPLEX #90 tabs eszopiclone 3 mg tablet (Lunesta) 3 mg PO QHS PRN insomnia #30 tabs 03/30/24 06/22/24 Rx hydrochlorothiazide 25 mg tablet See Rx Instructions .Route 04/10/24 06/22/24 Rx .COMPLEX #90 tabs atorvastatin 20 mg tablet (Lipitor) 20 mg PO QHS #90 tabs 04/26/24 06/22/24 Rx gabapentin 600 mg tablet 600 mg PO QID #360 tabs 05/01/24 06/22/24 Rx milnacipran 25 mg tablet (Savella) 25 mg PO DAILY 30 days #30 tabs 05/03/24 06/22/24 Rx lidocaine 5 % topical patch 1 patch topical DAILY #30 ea 05/16/24 06/22/24 Rx tramadol 50 mg tablet 50 mg PO Q12H PRN pain 06/05/24 06/22/24 History metoprolol succinate 100 mg See Rx Instructions .Route 06/12/24 06/22/24 Rx tablet,extended release 24 hr .COMPLEX #90 tabs acyclovir 400 mg tablet 400 mg PO BID 06/22/24 06/22/24 History atorvastatin 20 mg tablet 20 mg PO DAILY 06/22/24 06/22/24 History dexamethasone 4 mg tablet 20 mg PO WEEKLY 06/22/24 06/22/24 History eszopiclone 3 mg tablet 3 mg PO QHS PRN insomnia 06/22/24 06/22/24 History ezetimibe 10 mg tablet 10 mg PO DAILY 06/22/24 06/22/24 History gabapentin 600 mg tablet 600 mg PO QID 06/22/24 06/22/24 History hydrochlorothiazide 25 mg tablet 25 mg PO DAILY 06/22/24 06/22/24 History lenalidomide 15 mg capsule 15 mg PO DAILY 06/22/24 06/22/24 History (Revlimid) lenalidomide 25 mg capsule mg PO 06/22/24 History (Revlimid) levothyroxine 50 mcg tablet 50 mcg PO .q 0630 06/22/24 06/22/24 History lidocaine 5 % topical patch 1 patch topical DAILY 06/22/24 06/22/24 History lidocaine-prilocaine 2.5 %-2.5 % 1 applic topical PRN PRN Port 06/22/24 06/22/24 History topical cream Access metformin 500 mg tablet,extended 500 mg PO DAILY 06/22/24 06/22/24 History release 24 hr metoprolol succinate 100 mg 100 mg PO DAILY 06/22/24 06/22/24 History tablet,extended release 24 hr metronidazole 1 % topical gel with 1 applic topical BID 06/22/24 06/22/24 History pump milnacipran 25 mg tablet (Savella) 25 mg PO DAILY 06/22/24 06/22/24 History montelukast 10 mg tablet 10 mg PO DAILY 06/22/24 06/22/24 History ondansetron 8 mg disintegrating 8 mg translingual Q8H PRN nausea 06/22/24 06/22/24 History tablet and vomiting ramipril 10 mg capsule 10 mg PO DAILY 06/22/24 06/22/24 History sulfamethoxazole 800 tablet 06/22/24 History mg-trimethoprim 160 mg tablet tramadol 50 mg tablet mg 06/22/24 History Allergies Allergy/AdvReac Type Severity Reaction Status Date / Time doxycycline Allergy Severe Itching Verified 06/22/24 11:30 alprazolam Allergy Intermediate Other-UNABLE Verified 06/22/24 11:30 TO RECALL minocycline Allergy Intermediate Itching, Verified 06/22/24 11:30 HIVES propoxyphene Allergy Intermediate Itching Verified 06/22/24 11:30 carboxymethylcellulose sodium Allergy Mild Other-UNABLE Verified 06/22/24 11:30 TO RECALL duloxetine Allergy Mild Unknown-UNABLE Verified 06/22/24 11:30 TO RECALL indomethacin Allergy Mild Unknown-UNABLE Verified 06/22/24 11:30 TO RECALL linaclotide Allergy Mild Other-UNABLE Verified 06/22/24 11:30 TO RECALL nabumetone Allergy Mild Unknown-UNABLE Verified 06/22/24 11:30 TO RECALL sulfamethoxazole Allergy Mild Unknown-UNABLE Verified 06/22/24 11:30 TO RECALL terbinafine Allergy Mild Unknown-UNABLE Verified 06/22/24 11:30 TO RECALL valdecoxib Allergy Mild Unknown-UNABLE Verified 06/22/24 11:30 TO RECALL etodolac Allergy Unknown UNKNOWN-UNABLE Verified 06/22/24 11:30 TO RECALL chlorpheniramine AdvReac Intermediate HARD TO Verified 06/22/24 11:30 AWAKEN codeine AdvReac Intermediate Nervousness, Verified 06/22/24 11:30 HEART RACES, HEAD FEELS STRANGE dexchlorpheniramine AdvReac Intermediate Other-ZEUS Verified 06/22/24 11:30 RGY levocarnitine AdvReac Intermediate (Trinalin)= Verified 06/22/24 11:30 Nausea levofloxacin AdvReac Intermediate Nausea and Verified 06/22/24 11:30 Vomiting phenylephrine AdvReac Intermediate Other-ZEUS Verified 06/22/24 11:30 RGY phenylpropanolamine AdvReac Intermediate Other- IMMU Verified 06/22/24 11:30 NE rofecoxib AdvReac Intermediate Swelling, Verified 06/22/24 11:30 WATER RETENTION scopolamine AdvReac Intermediate Other-ZEUS Verified 06/22/24 11:30 RGY amitriptyline AdvReac Mild Other-ZEUS Verified 06/22/24 11:30 RGY brompheniramine AdvReac Mild other- TOO Verified 06/22/24 11:30 DRYING carbinoxamine AdvReac Mild Other- TOO Verified 06/22/24 11:30 DRYING diclofenac AdvReac Mild HEARTBURN Verified 06/22/24 11:30 oxybutynin AdvReac Mild Rash Verified 06/22/24 11:30 ramelteon AdvReac Mild Nausea Verified 06/22/24 11:30 terfenadine AdvReac Mild Nausea Verified 06/22/24 11:30 trazodone AdvReac Mild Restless Verified 06/22/24 11:30 Sleep pregabalin (From Lyrica) AdvReac Unknown does not Verified 06/22/24 11:30 remember gabapentin AdvReac does not Verified 06/22/24 11:30 remember Vital Signs Vital Signs - 24 hr 06/26/24 16:00 06/26/24 16:00 06/26/24 20:00 Temperature 36.7 C 36.4 C Pulse Rate 87 73 73 Respiratory Rate 16 12 Blood Pressure 131/63 179/68 H Pulse Oximetry 100 98 Oxygen Delivery 06/26/24 20:00 06/26/24 22:20 06/27/24 00:00 Temperature 36.4 C Pulse Rate 72 70 Respiratory Rate 12 Blood Pressure 156/68 H Pulse Oximetry 97 Oxygen Delivery CPAP 06/27/24 00:00 06/27/24 04:00 06/27/24 04:00 Temperature 36.3 C L Pulse Rate 69 65 65 Respiratory Rate 14 Blood Pressure 145/53 H Pulse Oximetry 99 Oxygen Delivery 06/27/24 08:00 06/27/24 09:59 06/27/24 11:59 Temperature 36.4 C Pulse Rate 71 84 81 Respiratory Rate 15 Blood Pressure 149/76 H Pulse Oximetry 100 Oxygen Delivery 06/27/24 12:00 Temperature Pulse Rate 74 Respiratory Rate Blood Pressure Pulse Oximetry Oxygen Delivery Results Labs 06/27/24 06:55 06/27/24 06:55 Labs: Short CBC 06/27/24 Range/Units 06:55 WBC 5.8 (4.5-10.0) K/mm3 Hgb 11.1 L (12.0-15.0) g/dL Hct 34.4 L (37.0-47.0) % Plt Count 151 (150-375) k/mm3 BMP 06/27/24 06:55 Sodium 131 L Potassium 3.6 Chloride 99 Carbon Dioxide 23 BUN 15 Creatinine 0.66 L Glucose 130 H Calcium 7.4 L Liver Function 06/27/24 Range/Units 06:55 Total Bilirubin 0.9 (0.2-1.3) mg/dL AST 25 (14-36) U/L ALT 23 (6-35) U/L Alkaline Phosphatase 42 (38-126) U/L Albumin 3.9 (3.5-5.1) g/dL
[2024-06-27] MEDS: METOPROLOL TARTRATE INJ 5 MG/5 ML VIAL IV PUSH (16:55)
[2024-06-27] MEDS: METOPROLOL TARTRATE INJ 5 MG/5 ML VIAL (17:17)
[2024-06-27] MEDS: MILNACIPRAN 25 MG 25 EACH PO (17:55)
[2024-06-27] MEDS: ramipriL 5 MG CAPSULE 10 MG PO (17:55)
[2024-06-27] MEDS: MELATONIN 5 MG TABLET PO (21:01)
[2024-06-27] MEDS: diphenhydrAMINE HCl INJ 50 MG/ML VIAL 25 MG IV PUSH (21:01)
[2024-06-27] MEDS: IBUPROFEN 600 MG TABLET PO (21:01)
[2024-06-28] VITALS (10 sets, daily range): BP systolic 138–169; BP diastolic 62–76; PULSE 68–94; RESP 15–20; TEMP 36.3–36.8; O2SAT 98–100; BMI 37.5
[2024-06-28] MEDS: metroNIDAZOLE 500 MG TABLET PO ×3 (05:31→21:58)
[2024-06-28] MEDS: LEVOTHYROXINE SODIUM 50 MCG TABLET PO (05:31)
[2024-06-28 06:21] LABS: Basophils Absolute Auto 0.1 K/mm3 (0.0-0.1); Basophils Percent Auto 1.6 % (0.2-1.2); Eosinophils Absolute Auto 0.2 K/mm3 (0-0.3); Eosinophils Percent Auto 3.4 % (0-4.4); Hematocrit 31.3 % (37.0-47.0); Hemoglobin 10.2 g/dL (12.0-15.0); Immature Granulocyte Absolute 0.01 K/mm3 (0.00-0.031); Immature Granulocyte Percent A 0.2 % (0-0.5); Lymphocytes Absolute Auto 1.23 K/mm3 (0.9-3.2); Lymphocytes Percent Auto 24.3 % (18.3-44.2); Mean Corpuscular HGB Conc 32.6 g/dl (32-36); Mean Corpuscular Volume 98.1 fl (80-100); Mean Platelet Volume 10.2 fl (7.4-10.4); Monocytes Absolute Auto 0.9 K/mm3 (0.1-0.6); Monocytes Percent Auto 16.8 % (2.6-8.5); Neutrophils Absolute Auto 2.7 K/mm3 (1.3-6.7); Neutrophils Percent Auto 53.7 % (45.5-73.1); Platelet Count Result 157 k/mm3 (150-375); Red Blood Count 3.19 M/mm3 (4.2-5.4); Red Cell Distribution Width 16.1 % (11.5-14.5); White Blood Count 5.1 K/mm3 (4.5-10.0)
[2024-06-28 06:40] LABS: Alanine Aminotransferase 20 U/L (6-35); Albumin Level 3.6 g/dL (3.5-5.1); Alkaline Phosphatase 48 U/L (38-126); Anion Gap 7 mmol/L (4-12); Aspartate Amino Transferase 22 U/L (14-36); Bilirubin,Total 0.7 mg/dL (0.2-1.3); Blood Urea Nitrogen 16 mg/dL (7-17); Calcium 7.7 mg/dL (8.4-10.2); Carbon Dioxide 25 mmol/L (22-30); Chloride 101 mmol/L (98-107); Estimated CRCL calculation 54 ml/min; Estimated Glomerular Filt Rate > 60; Glucose 128 mg/dL (65-110); Magnesium 1.9 mg/dL (1.6-2.3); Sodium 133 mmol/L (137-145)
[2024-06-28] MEDS: POTASSIUM CHLORIDE 20 MEQ ER TABLET 40 MEQ PO (09:44)
[2024-06-28] MEDS: AMOXICILLIN/CLAVULANATE K 875-125 MG TAB 1 TABLET PO ×2 (09:46→20:25)
[2024-06-28] MEDS: MULTIVITAMINS THERAPEUTIC TAB (*BKC) 1 TABLET PO (09:46)
[2024-06-28] MEDS: METOPROLOL SUCCINATE EXT REL 100 MG TABCR PO (09:46)
[2024-06-28] MEDS: hydroCHLOROthiazide 25 MG TABLET BY MOUTH (09:46)
[2024-06-28] MEDS: PANTOPRAZOLE 40 MG TABLET PO (09:47)
[2024-06-28] MEDS: MONTELUKAST SODIUM 10 MG TABLET PO (09:47)
[2024-06-28] MEDS: LIDOCAINE 5% PATCH 1 PATCH TOPICAL (09:47)
[2024-06-28] MEDS: ENOXAPARIN 40 MG/0.4 ML SYRINGE SUB-Q (09:47)
[2024-06-28] MEDS: PUMP TOPICAL ×2 (09:48→20:26)
[2024-06-28] MEDS: METRONIDAZOLE 1% TOPICAL ×2 (09:48→20:26)
[2024-06-28] MEDS: ACETAMINOPHEN 325 MG TABLET 650 MG PO ×2 (13:05→20:26)
[2024-06-28] MEDS: ONDANSETRON INJ 4 MG/2 ML VIAL IV PUSH ×2 (13:06→20:27)
[2024-06-28 14:33] LABS: Toxigenic C. Diff NEGATIVE (NEGATIVE)
--- NOTE | 2024-06-28 15:15 | PM.IMPN ---
Progress Note: A&P Assessment and Plan (1) Myeloma: Code(s): C90.00 - Multiple myeloma not having achieved remission Status: Acute Assessment and Plan: White cell of 5.1 today. Afebrile, no sign of infection. H/H 10.2/31.3. PLT 191. Neutropenic precautions Antibiotics: vancomycin, metronidazole, cefepime prophylactically, Nasal MRSA negative and vanc DC. Transitioned to Augmentin, course to be completed on 06/28. Watch for any abnormal vitals Heme/onc consulted Serum protein immunoelectrophoresis Discontinue lenalidomide and dexamethasone for now. Dex not discontinued due to the risk of adrenal crisis. Patient was advised after discharge that she needs to go to PCP and Heme-Onc () to get the bottles and verify with both them what medications she is taking. (2) Ileus: Code(s): K56.7 - Ileus, unspecified Status: Acute Assessment and Plan: Chest/abdomen/pelvis CT 06/21: Mild dilation of a loop of jejunum in the mid abdomen, presumably secondary to focal ileus. Early obstruction not excluded. - antibiotics: flagyl transitioned to augmentin, course to be completed on 06/28 - Diet: advanced back to regular diet - Monitor vital signs, I&Os, track stool output, watch for bloody stools, neuro status and patient is a fall risk - Monitor serum electrolytes and CBC - Surgery consulted, appreciate recommendations exam is largely benign, continue to encourage p.o., PT/OT, out of bed, continue serial exams signed off on 06/24 KUB 06/23: Nonspecific bowel gas pattern. Resolved. (3) Essential (primary) hypertension: Code(s): I10 - Essential (primary) hypertension Status: Acute Assessment and Plan: Chronic, continue home medications - HCTZ 25 mg daily - Metoprolol 100 mg daily - Ramipril 10 mg daily - Hydralazine 10 mg IV q6H prn for BP > 160 - Monitor (4) Hypothyroidism: Qualifiers: Hypothyroidism type: acquired Qualified Code(s): E03.9 - Hypothyroidism, unspecified Code(s): E03.9 - Hypothyroidism, unspecified Status: Acute Assessment and Plan: Chronic, continue home synthroid 50 mcg daily Time Spent With Patient Time with patient: 25 - 35 minutes Subjective Date/time seen: 06/28/24 15:15 Interval history: 83-year-old female with history of multiple myeloma on chemotherapy present to the hospital for nausea/vomiting and diarrhea. Patient is pleasant lying in bed. She states that she feels terrible today and reports 4-5 episodes of watery diarrhea without noted blood in the stool. She also endorses nausea and the inability to eat. Discussed with patient that there is antinausea medication ordered if she feels this way. She states understanding. Patient continues to endorse weakness however she has shown much improvement per RN in her ability to ambulate her PT. Patient has no other complaints denying chest pain, shortness of breath, palpitations and abdominal pain. Review of Systems Review of Systems: All systems reviewed & are unremarkable except as noted in HPI and below Exam Narrative: AF HR 72 RR 15 SpO2 100 BP 138/62 General: female in no acute respiratory distress who is nontoxic appearing, lying semi recumbent in bed. HEENT: Normocephalic. Atraumatic. Extraocular movement intact. Sclera clear and anicteric. No facial asymmetry. Chest: Lungs are clear to auscultation bilaterlly. No wheezes or crackles. CV: Heart was regular rate and rhythm. S1-S2. No murmurs, gallops, or rubs. Abd: Abdomen was soft. Nontender. Nondistended. Positive bowel sounds. Ext: No clubbing, cyanosis, or edema. 2+ DP pulses bilaterally. Neuro: Patient is alert and oriented x4. Cranial nerves 2-12 are intact. Speech is clear. Objective Data Vital Signs Vital Signs: Vital Signs - 24 hr 06/27/24 15:23 06/27/24 16:00 06/27/24 16:55 Temperature 97.2 F L Pulse Rate 81 105 H 94 Respiratory Rate 15 Blood Pressure 144/69 H Pulse Oximetry 96 Oxygen Delivery 06/27/24 17:17 06/27/24 20:00 06/27/24 20:00 Temperature 97.7 F Pulse Rate 97 83 78 Respiratory Rate 18 Blood Pressure 154/69 H Pulse Oximetry 97 Oxygen Delivery 06/27/24 20:00 06/27/24 22:31 06/28/24 00:00 Temperature Pulse Rate 70 Respiratory Rate Blood Pressure Pulse Oximetry Oxygen Delivery Room Air CPAP 06/28/24 04:00 06/28/24 05:20 06/28/24 08:00 Temperature 97.3 F L Pulse Rate 73 93 68 Respiratory Rate 20 Blood Pressure 155/76 H Pulse Oximetry 99 Oxygen Delivery 06/28/24 09:46 06/28/24 12:00 06/28/24 13:44 Temperature 97.3 F L Pulse Rate 88 79 72 Respiratory Rate 15 Blood Pressure 138/62 Pulse Oximetry 100 Oxygen Delivery Intake/Output Intake/Output: Intake & Output 06/25/24 06/26/24 06/27/24 06/28/24 23:59 23:59 23:59 23:59 Intake Total 9503 556 2019 827 Output Total 300 Balance 727 927 5942 827 Meds/Results Medications: Active Medications Generic Name Dose Route Start Last Admin Trade Name Freq PRN Reason Stop Dose Admin Acetaminophen 650 mg 06/22/24 13:55 06/28/24 13:05 Acetaminophen 325 Mg Tablet PO 650 mg Q4H PRN Administration Mild Pain (1-3) or Fever Amoxicillin/Clavulanate Potassium 1 tablet 06/27/24 09:30 06/28/24 09:46 Amoxicillin/Clavulanate K 875-125 Mg Tab PO 06/28/24 21:01 1 tablet Q12HR EZRA Administration Dexamethasone 20 mg 06/26/24 09:00 06/26/24 08:34 Dexamethasone 4 Mg Tablet PO Not Given Mo@0900 EZRA Dextrose 12.5 gm 06/22/24 18:54 Dextrose 50% 25 Gm/50 Ml Syringe IV PUSH PRN PRN Hypoglycemia Protocol Diphenhydramine HCl 25 mg 06/23/24 18:10 06/27/24 21:01 Diphenhydramine Hcl Inj 50 Mg/Ml Vial IV PUSH 25 mg Q4H PRN Administration Itching Enoxaparin Sodium 40 mg 06/23/24 09:00 06/28/24 09:47 Enoxaparin 40 Mg/0.4 Ml Syringe SUB-Q 40 mg DAILY EZRA Administration Glucagon 1 mg 06/22/24 18:54 Glucagon For Inj 1 Mg Vial IM PRN PRN Hypoglycemia Protocol Glucose 15 gm 06/22/24 18:54 Glucose Oral Gel 15 Gm Of Glucse In 37.5 Gm Tube PO PRN PRN Hypoglycemia Protocol Hydralazine HCl 10 mg 06/23/24 11:54 06/23/24 13:10 Hydralazine Hcl 20 Mg/Ml Vial IV PUSH 10 mg Q8H PRN Administration Blood Pressure - High Hydrochlorothiazide 25 mg 06/23/24 09:00 06/28/24 09:46 Hydrochlorothiazide 25 Mg Tablet BY MOUTH 25 mg DAILY EZRA Administration Dextrose 1,000 mls @ 100 mls/hr 06/22/24 18:54 Dextrose 5% 1,000 Ml IVPB PRN PRN Hypoglycemia Protocol Ibuprofen 600 mg 06/23/24 00:21 06/27/24 21:01 Ibuprofen 600 Mg Tablet PO 600 mg Q6H PRN Administration Cramping Insulin Aspart 2 - 5 units 06/23/24 08:00 06/28/24 09:47 Insulin Aspart (*Bkc) 100 Units/Ml SUB-Q Not Given TIDWM [facility] Protocol Levothyroxine Sodium 50 mcg 06/23/24 06:30 06/28/24 05:31 Levothyroxine Sodium 50 Mcg Tablet PO 50 mcg DAILY@0630 EZRA Administration Lidocaine 1 patch 06/23/24 09:00 06/28/24 09:47 Lidocaine 5% Patch TOPICAL 1 patch DAILY EZRA Administration Lidocaine/Prilocaine 1 each 06/22/24 18:23 Lidocaine/Prilocaine Cream 2.5-2.5% Tube TOPICAL PRN PRN Port Access Melatonin 5 mg 06/22/24 23:40 06/27/24 21:01 Melatonin 5 Mg Tablet PO 5 mg HS [facility] Administration Metoprolol Succinate 100 mg 06/23/24 09:00 06/28/24 09:46 Metoprolol Succinate Ext Rel 100 Mg Tabcr PO 100 mg DAILY EZRA Administration Metronidazole 500 mg 06/26/24 14:00 06/28/24 13:05 Metronidazole 500 Mg Tablet PO 06/28/24 23:59 500 mg Q8HR EZRA Administration Montelukast Sodium 10 mg 06/23/24 09:00 06/28/24 09:47 Montelukast Sodium 10 Mg Tablet PO 10 mg DAILY [facility] Administration Morphine Sulfate 1 mg 06/23/24 18:10 06/25/24 20:46 Morphine Sulfate (*Crx) 2 Mg/Ml Inj IV PUSH 1 mg Q4H PRN Administration Pain Rated 7-10 Multi-Ingred Cream/Lotion/Oil/Oint 1 applic 06/22/24 21:00 Mineral Oil/White Petrolatum Ointment EACH EYE Q12H PRN Dry Eyes Multivitamins Therapeutic 1 tablet 06/23/24 09:00 06/28/24 09:46 Multivitamins Therapeutic Tab (*Bkc) PO 1 tablet DAILY EZRA Administration Home Med ( 1 applic 06/24/24 21:00 06/28/24 09:48 Metronidazole 1 % TOPICAL 07/24/24 20:59 1 applic Gel With Pump) Q12HR EZRA Administration Home Med ( 25 mg 06/24/24 17:00 06/27/24 17:55 Milnacipran [Savella PO 07/24/24 16:59 25 mg ] 25 Mg Tablet) DAILY@1700 EZRA Administration Ondansetron HCl 4 mg 06/22/24 10:19 Ondansetron Inj 4 Mg/2 Ml Vial IV PUSH Q6H PRN Nausea And Vomiting Ondansetron HCl 4 mg 06/22/24 17:21 06/28/24 13:06 Ondansetron Inj 4 Mg/2 Ml Vial IV PUSH 4 mg Q4H PRN Administration Nausea And Vomiting Ondansetron HCl 8 mg 06/22/24 19:11 Ondansetron Hcl Odt 4 Mg Tablet PO Q8H PRN Nausea And Vomiting Pantoprazole Sodium 40 mg 06/24/24 10:35 06/28/24 09:47 Pantoprazole 40 Mg Tablet PO 40 mg QAM EZRA Administration Ramipril 10 mg 06/24/24 17:00 06/27/24 17:55 Ramipril 5 Mg Capsule PO 10 mg 1700 EZRA Administration Radiology Results: ITS Impressions Head CT 06/21/24 20:54 IMPRESSION: No acute intracranial process. Chest/Abdomen/Pelvis CT 06/21/24 20:56 IMPRESSION: Mild esophagitis/gastritis. Mild dilation of a loop of jejunum in the mid abdomen, presumably secondary to focal ileus. Early obstruction not excluded. Multiple pancreatic cysts measuring up to 1.2 cm, demonstrating interval growth since 08/10/2020 examination. Consider follow-up with contrast enhanced MRI or pancreas protocol CT in one year, depending on the patient's overall health and preferences and if a surgical candidate. Severe disc space narrowing at L3-4 with erosive changes, may be secondary to osteomyelitis/discitis, neuropathic changes, or inflammatory arthropathy. Consider MR lumbar spine without and with contrast. Lumbar Spine MRI 06/22/24 13:57 IMPRESSION: 1. Severe lumbar spondylosis, advanced with Modic type III degenerative endplate changes at L3-L4. No findings to suggest discitis or osteomyelitis. 2. Diffuse heterogeneous marrow signal which could represent combination of red and yellow marrow or be related to reported known multiple myeloma. Chest X-Ray 06/22/24 21:31 IMPRESSION: Left basilar atelectasis versus pneumonia. Abdomen X-Ray 06/23/24 05:50 Impression: Nonspecific bowel gas pattern. Labs Labs: Laboratory Results - last 24 hr 06/28/24 06/28/24 06:14 13:00 WBC 5.1 RBC 3.19 L Hgb 10.2 L Hct 31.3 L MCV 98.1 MCH 32.0 MCHC 32.6 RDW 16.1 H Plt Count 157 MPV 10.2 Immature Gran % (Auto) 0.2 Neut % (Auto) 53.7 Lymph % (Auto) 24.3 Perry % (Auto) 16.8 H Eos % (Auto) 3.4 Baso % (Auto) 1.6 H Lymph # (Auto) 1.23 Perry # (Auto) 0.9 H Eos # (Auto) 0.2 Baso # (Auto) 0.1 Abs Immat Gran (auto) 0.01 Absolute Neuts (auto) 2.7 Absolute Nucleated RBC 0.000 Nucleated RBC % 0.0 Sodium 133 L Potassium 3.0 L Chloride 101 Carbon Dioxide 25 Anion Gap 7 BUN 16 Creatinine 0.81 Estim Creat Clear Calc 54 Estimated GFR > 60 Glucose 128 H Calcium 7.7 L Magnesium 1.9 Total Bilirubin 0.7 AST 22 ALT 20 Alkaline Phosphatase 48 Total Protein 6.0 L Albumin 3.6 C. difficile (PCR) Negative Quality VTE Prophylaxis VTE prophylaxis: pharmacologic ordered
--- OUTSIDE RECORDS SUMMARY | 2024-06-28 17:11 | XMS_ITS | Encounter Summary ---
Author Organization [facility] Address [address] [place] [address] Phone Care Team Providers Care Preschool Assistant Teacher Name Role Phone Elvis Lopez MD Primary Care Provider [phone] Catherine Todd MD Unavailable [phone] Reason for Referral * Consultation (Routine) - Pending Review Specialty Diagnoses / Procedures Referred By Contac t Referred To Contact Oncology Diagnoses Multiple myeloma not having achieved remission (CMS/HCC) (HCC) Catherine Todd MD [address] [employer] [place] [address] Phone: tel: fax: Brant Ratliff MD [id number] [address] Phone: tel: fax: Referral ID Status Reason Start Date Expiration Date Visits Requested Visits Authorized [id number] Pending Review Specialty Services Required 12/20/2023 01/18/2025 1 1 Question Answer Please select the performing region: External Order [171] To provider: BRANT RATLIFF [[id number]] # of visits: 1 Comments Multiple Myeloma, would like to see an oncologist closer to home. Has not had any treatment. Encounter Details Date Type Department Care Team (Late st Contact Info) Description 12/14/[address] [facility] Oncology [address] [place] [address] Lucretia Foote, [facility] Social History Tobacco Use Types Packs/Day Years [...] on file Legal Sex Female 3:01 AM PHILOSOPHY FACULTY Gender Identity Female 06/07/2020 11:17 AM PHILOSOPHY FACULTY Sexual Orientation Straight 06/07/2020 11 :17 AM PHILOSOPHY FACULTY documented as of this encounter Miscellaneous Notes [...] meantime we will send a referral to [place]. Patient voiced understanding and agrees with plan. [...] Multiple myeloma not having achieved remission (CMS/HCC) ([facility]) Expected: 01/14/2024, Expires: 12/19/2024 CBC [...] 12/20/2023 documented in this encounter Care Teams Preschool Assistant Teacher Relationship Specialty Start Date End Date Elvis Lopez MD [employer] [facility] [place] [address] PCP - General Family Medicine 02/04/23 Catherine Todd MD [address] [employer] [place] [address] Medical Oncologist/Yard Goods Salesperson Hematology 08/27/23 documented as of this encounter
--- OUTSIDE RECORDS SUMMARY | 2024-06-28 17:11 | XMS_ITS | Encounter Summary ---
Author Organization [facility] Address [address] [place] [address] Phone Care Team Providers Care Section Weaver Name Role Phone Elvis Lopez MD Primary Care Provider [phone] Catherine Todd MD Unavailable Encounter Details Date Type Department Care Team (Late st Contact Info) Description 12/06/2023 Orders Only [facility] Oncology [address] [facility] [address] [place] [address] Catherine Todd MD [address] DIV IM BONE MARROW TRANSPLANT, [address] [place] [address] Social History Tobacco Use Types Packs/Day Years [...] on file Legal Sex Female 3:01 AM COOKER HELPER Gender Identity Female 06/07/2020 11:17 AM COOKER HELPER Sexual Orientation Straight 06/07/2020 11 :17 AM COOKER HELPER documented as of this encounter Plan of Treatment Not on file documented as of this encounter Visit Diagnoses Not on filedocumented in this encounter Care Teams Section Weaver Relationship Specialty Start Date End Date Elvis Lopez MD [address] [facility] [place] [address] PCP - General Family Medicine 02/04/23 Catherine Todd MD [address] DIV IM BONE MARROW TRANSPLANT, [address] [place] [address] Medical Oncologist/Loop Puller Hematology 08/27/23 documented as of this encounter
--- OUTSIDE RECORDS SUMMARY | 2024-06-28 17:11 | XMS_ITS | Encounter Summary ---
Author Organization [facility] Address [address] [place] [address] Phone Care Team Providers Care Filter Cloth Maker Name Role Phone Elvis Lopez MD Primary Care Provider [phone] Catherine Todd MD Unavailable [phone] Encounter Details Date Type Department Care Team (Late st Contact Info) Description 12/15/2023 Orders Only [facility] Oncology [address] [facility] [address] [place] [address] Falguni Lomeli RN Social History [...] on file Legal Sex Female 3:01 AM PICKING TABLE WORKER Gender Identity Female 06/07/2020 11:17 AM PICKING TABLE WORKER Sexual Orientation Straight 06/07/2020 11 :17 AM PICKING TABLE WORKER documented as of this encounter Plan of Treatment Not on file documented as of this encounter Visit Diagnoses Not on filedocumented in this encounter Care Teams Filter Cloth Maker Relationship Specialty Start Date End Date Elvis Lopez MD [facility] [facility] [place] [address] PCP - General Family Medicine 02/04/23 Catherine Todd MD [address] DIV IM BONE MARROW TRANSPLANT, [address] [place] [address] Medical Oncologist/Vaccine Manager Hematology 08/27/23 documented as of this encounter
--- OUTSIDE RECORDS SUMMARY | 2024-06-28 17:11 | XMS_ITS | Encounter Summary ---
Author Organization [facility] Address [address] [place] [address] Phone Care Team Providers Care Hospitalist Physician Name Role Phone Elvis Lopez MD Primary Care Provider [phone] Catherine Todd MD Unavailable [phone] Encounter Details Date Type Department Care Team (Late st Contact Info) Description 12/15/2023 Orders Only [facility] Oncology [address] [facility] [address] [place] [address] Catherine Todd MD [address] DIV IM BONE MARROW TRANSPLANT, [address] [place] [address] Multiple myeloma not having achieved remission (CMS/HCC) [...] on file Legal Sex Female 3:01 AM COAT ROOM ATTENDANT Gender Identity Female 06/07/2020 11:17 AM COAT ROOM ATTENDANT Sexual Orientation Straight 06/07/2020 11 :17 AM COAT ROOM ATTENDANT documented as of this encounter Plan of Treatment Not on file documented as of this encounter Visit Diagnoses Diagnosis Multiple myeloma not having achieved remission (CMS/HCC) (HCC)- Primary documented in this encounter Care Teams Hospitalist Physician Relationship Specialty Start Date End Date Elvis Lopez MD [address] [place] [address] PCP - General Family Medicine 02/04/23 Catherine Todd MD [address] DIV IM BONE MARROW TRANSPLANT, [address] [place] [address] Medical Oncologist/Technician Chemical Cleaning Hematology 08/27/23 documented as of this encounter
--- OUTSIDE RECORDS SUMMARY | 2024-06-28 17:11 | XMS_ITS | Encounter Summary ---
Author Organization [facility] Address [address] [place] [address] Phone Care Team Providers Care Regional Project Manager Name Role Phone Elvis Lopez MD Primary Care Provider [phone] Catherine Todd MD Unavailable [phone] Encounter Details Date Type Department Care Team (Late st Contact Info) Description 01/13/2024 Orders Only [facility] Oncology [address] [facility] [address] [place] [address] Falguni Lomeli RN Social History [...] on file Legal Sex Female 3:01 AM MACHINE LAY OUT WORKER Gender Identity Female 06/07/2020 11:17 AM MACHINE LAY OUT WORKER Sexual Orientation Straight 06/07/2020 11 :17 AM MACHINE LAY OUT WORKER documented as of this encounter Plan [...] documented as of this encounter Care Teams Regional Project Manager Relationship Specialty Start Date End Date Elvis Lopez MD [address] [place] [address] PCP - General Family Medicine 02/04/23 Catherine Todd MD [address] DIV IM BONE MARROW TRANSPLANT, [address] [place] [address] Medical Oncologist/Corporate Logistics Manager Hematology 08/27/23 documented as of this encounter
--- OUTSIDE RECORDS SUMMARY | 2024-06-28 17:11 | XMS_ITS | Clinical Summary ---
Author Organization [facility] [address] Address [address] [place] [address] Care Team Providers Care Radiation Oncologist Name Role Phone Elvis Lopez MD Primary Care Provider [phone] Catherine Todd MD Unavailable [phone] Allergies Active Allergy Reactions Criticality Noted Date Comments Doxycycline Monohydrate Unknown 08/29/2018 Alprazolam Other (See comments) Low 08/29/2018 Sleeps all day Amitriptyline Other (See comments) Low 08/29/2018 Sleeps all day Valdecoxib Unknown 08/29/2018 Dextran 70-Hypromellose (Pf) Unknown 019 Brompheniramine-Phenylephrine Unknown 2018 Desloratadine Unknown 08/29/2018 Codeine Meperidine Unknown 08/29/2018 Diclofenac Unknown 08/29/2018 Duloxetine Unknown 08/29/2018 Phenylephrine-Guaifenesin Unknown 08/29/2018 Viazmxlqdcpeapgr-Ah-Tpfftlpsbz Other (Se e comments) Low 08/29/2018 Hard [...] 50 mcg/actuation nasal spray Active glucosam velasquez yai-krhudqzdh-L-Mn 333-127-33-3 mg capsule Active hydroCHLOROthiazid e (HYDRODIURIL) 25 [...] nightly as needed 06/23/19 22 Active omega 9-fas-jjh-fish oil (Fish OiL) 100-160-1,000 mg capsule Take [...] be different from the original. Labs at [facility] prior to 3 mo f / u. 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 Nuclear sclerotic cataract 03/03/2016 Lumbago 12/25/2011 Hypertension 01/12/2011 Raynaud's disease 01/12/2011 Hypercholesterolemia 01/12/2011 Thyroid activity decreased 01/12/2011 Environmental allergies 01/12/2011 Regular astigmatism 01/12/2011 Knee pain 11/07/2010 Pain of foot 11/07/2010 Corneal scar 01/13/2010 Encounters Date Type Department Care Team Description 04/13/2024 8:30 AM CDT Office Visit [facility] Medical [facility] Cardiology [address] [place] [address] Lawrence Danielson MD Nonrheumatic mitral [...] on file Legal Sex Female 3:01 AM LOG CHECK SCALER Gender Identity Female 06/07/2020 11:17 AM LOG CHECK SCALER Sexual Orientation Straight 06/07/2020 11 :17 AM LOG CHECK SCALER Obstetrics History Last Filed Vital Signs Vital [...] 2017 Fall Risk Assessment 10/31/2024 11/01/2023 Insurance [facility] [id number] [facility] [id number] [facility] [id number] Care Teams Radiation Oncologist Relationship Specialty Start Date End Date Elvis Lopez MD [address] [place] [address] [place] [address] PCP - General Family Medicine 02/04/23 Catherine Todd MD [address] DIV IM BONE MARROW TRANSPLANT, [address] [place] [address] Medical Oncologist/Jacquard Lace Weaver Hematology 08/27/23
--- OUTSIDE RECORDS SUMMARY | 2024-06-28 17:11 | XMS_ITS | Encounter Summary ---
Author Organization [facility] Address [address] [place] [address] Phone Care Team Providers Care Blanket Weaver Name Role Phone Elvis Lopez MD Primary Care Provider [phone] Catherine Todd MD Unavailable [phone] Encounter Details Date Type Department Care Team (Late st Contact Info) Description 12/20/2023 Telephone [facility] Oncology [address] [facility] [address] [place] [address] Dafne Muse CMA Social History Tobacco [...] on file Legal Sex Female 3:01 AM BELL VALET Gender Identity Female 06/07/2020 11:17 AM BELL VALET Sexual Orientation Straight 06/07/2020 11 :17 AM BELL VALET documented as of this encounter Miscellaneous Notes * Telephone Encounter - Dafne Muse CMA - 12/20/2023 3:50 PM CDT Spoke with pt about upcoming appt. Confimed appt date and time. AM documented in this encounter Plan of Treatment Not on file documented as of this encounter Visit Diagnoses Not on filedocumented in this encounter Care Teams Blanket Weaver Relationship Specialty Start Date End Date Elvis Lopez MD [facility] [facility] [place] [address] PCP - General Family Medicine 02/04/23 Catherine Todd MD [address] DIV IM BONE MARROW TRANSPLANT, [address] [place] [address] Medical Oncologist/Business Taxes Specialist Hematology 08/27/23 documented as of this encounter
--- OUTSIDE RECORDS SUMMARY | 2024-06-28 17:11 | XMS_ITS | Referral Summary ---
Author Organization [facility] [address] [facility] [address] Address [address] [place] [address] Care Team Providers Care Crane Operator Name Role Phone Elvis Lopez MD Primary Care Provider [phone] Catherine Todd MD Unavailable [phone] Encounters Date Type Department Care Team Description 04/13/2024 8:30 AM CDT Office Visit [facility] Medical Group Cardiology [address] [place] [address] Lawrence Danielson MD Nonrheumatic mitral [...] 08/29/2018 Duloxetine Unknown 08/29/2018 Phenylephrine-Guaifenesin Unknown 08/29/2018 Ojkwkzpfsiemiirc-Dz-Etmxdtalsn Other (Se e comments) Low 08/29/2018 Hard [...] 50 mcg/actuation nasal spray Active glucosam velasquez wtz-zreiewgjg-A-Mn 622-074-31-3 mg capsule Active hydroCHLOROthiazid e (HYDRODIURIL) 25 [...] nightly as needed 06/23/19 22 Active omega 7-mrf-lto-fish oil (Fish OiL) 100-160-1,000 mg capsule Take [...] be different from the original. Labs at [facility] prior to 3 mo f / u. 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 [...] on file Legal Sex Female 3:01 AM FITTER / WELDER Gender Identity Female 06/07/2020 11:17 AM FITTER / WELDER Sexual Orientation Straight 06/07/2020 11 :17 AM FITTER / WELDER Last Filed Vital Signs Vital Sign Reading [...] Plan of Treatment Not on file Insurance [facility] [id number] [facility] [id number] [facility] [id number] Care Teams Crane Operator Relationship Specialty Start Date End Date Elvis Lopez MD [address] [facility] [place] [address] PCP - General Family Medicine 02/04/23 Catherine Todd MD [address] DIV IM BONE MARROW TRANSPLANT, [address] [place] [address] Medical Oncologist/Traveling Missionary Hematology 08/27/23
--- OUTSIDE RECORDS SUMMARY | 2024-06-28 17:11 | XMS_ITS ---
Author Organization Unknown Medications Medication Instructions Effective Dates (start - stop) Status montelukast 10 MG Oral Tablet 2023-06-15 00:00:00Z - Completed eszopiclone 3 MG Oral Tablet [id number] 0:00:00Z - Completed milnacipran hydrochloride 25 MG Oral Tablet [Savella] - Completed atorvastatin 20 MG Oral Tablet 2023-04-25 T00:00:00Z - Completed atorvastatin 20 MG Oral Tablet 2023-05-23 T00:00:00Z - Completed milnacipran hydrochloride 25 MG Oral Tablet [Savella] - Completed levothyroxine sodium 0.05 MG Oral Tablet - Completed atorvastatin 20 MG Oral Tablet 2023-04-18 T00:00:00Z - Completed eszopiclone 3 MG Oral Tablet [id number] 0:00:00Z - Completed montelukast 10 MG Oral Tablet 2023-12-22 00:00:00Z - Completed levothyroxine sodium 0.05 MG Oral Tablet - Completed ramipril 10 MG Oral Capsule [id number] :00:00Z - Completed milnacipran hydrochloride 25 MG Oral Tablet [Savella] - Completed ramipril 10 MG Oral Capsule [id number] :00:00Z - Completed atorvastatin 20 MG Oral Tablet 2023-10-19 T00:00:00Z - Completed gabapentin 600 MG Oral Tablet 2023-06-16 00:00:00Z - Completed sulfamethoxazole 800 MG / trimethoprim 160 MG Oral Tablet - Compl eted gabapentin 600 MG Oral Tablet 2023-03-18 00:00:00Z - Completed gabapentin 600 MG Oral Tablet 2023-11-03 00:00:00Z - Completed eszopiclone 3 MG Oral Tablet [id number] 0:00:00Z - Completed milnacipran hydrochloride 25 MG Oral Tablet [Savella] - Completed milnacipran hydrochloride 25 MG Oral Tablet [Savella] - Completed metronidazole 0.01 MG/MG Topical Gel 202300:00:00Z - Completed levothyroxine sodium 0.05 MG Oral Tablet - Completed milnacipran hydrochloride 25 MG Oral Tablet [Savella] - Completed atorvastatin 20 MG Oral Tablet 2024-01-12 T00:00:00Z - Completed atorvastatin 20 MG Oral Tablet 2023-02-20 T00:00:00Z - Completed lidocaine 0.05 MG/MG Medicated Patch 202200:00:00Z - Completed ezetimibe 10 MG Oral Tablet [id number] :00:00Z - Completed montelukast 10 MG Oral Tablet 2023-06-16 00:00:00Z - Completed eszopiclone 3 MG Oral Tablet [id number] 0:00:00Z - Completed ezetimibe 10 MG Oral Tablet [id number] :00:00Z - Completed lidocaine 0.05 MG/MG Medicated Patch 202300:00:00Z - Completed eszopiclone 3 MG Oral Tablet [id number] 0:00:00Z - Completed levothyroxine sodium 0.05 MG Oral Tablet - Completed eszopiclone 3 MG Oral Tablet [id number] 0:00:00Z - Completed atorvastatin 20 MG Oral Tablet 2023-04-16 T00:00:00Z - Completed metronidazole 0.01 MG/MG Topical Gel 202300:00:00Z - Completed cholecalciferol 1.25 MG Oral Capsule 202200:00:00Z - Completed 24 HR metformin hydrochlorid e 500 MG Extended Release Oral Tablet - Complete d ramipril 10 MG Oral Capsule [id number] :00:00Z - Completed atorvastatin 20 MG Oral Tablet 2023-08-13 T00:00:00Z - Completed lidocaine 0.05 MG/MG Medicated Patch 2023T00:00:00Z - Completed eszopiclone 3 MG Oral Tablet [id number] 0:00:00Z - Completed 24 HR metoprolol succinate 1 00 MG Extended Release Oral Tablet - Complete d acyclovir 400 MG Oral Tablet [id number] 0:00:00Z - Completed lidocaine 0.05 MG/MG Medicated Patch 202300:00:00Z - Completed milnacipran hydrochloride 25 MG Oral Tablet [Savella] - Completed atorvastatin 20 MG Oral Tablet 2023-03-18 T00:00:00Z - Completed 24 HR metoprolol succinate 1 00 MG Extended Release Oral Tablet - Complete d lidocaine 0.05 MG/MG Medicated Patch 202200:00:00Z - Completed milnacipran hydrochloride 25 MG Oral Tablet [Savella] - Completed atorvastatin 20 MG Oral Tablet 2023-06-20 T00:00:00Z - Completed gabapentin 600 MG Oral Tablet 2023-06-15 00:00:00Z - Completed - - Compl eted lenalidomide 25 MG Oral Caps ule [Revlimid] - Completed milnacipran hydrochloride 25 MG Oral Tablet [Savella] - Completed ramipril 10 MG Oral Capsule [id number] :00:00Z - Completed ramipril 10 MG Oral Capsule [id number] :00:00Z - Completed acyclovir 400 MG Oral Tablet [id number] 0:00:00Z - Completed atorvastatin 20 MG Oral Tablet 2023-05-26 T00:00:00Z - Completed 24 HR metoprolol succinate 1 00 MG Extended Release Oral Tablet - Complete d atorvastatin 20 MG Oral Tablet 2023-01-25 T00:00:00Z - Completed metronidazole 0.01 MG/MG Topical Gel 202200:00:00Z - Completed ezetimibe 10 MG Oral Tablet [id number] :00:00Z - Completed eszopiclone 3 MG Oral Tablet [id number] 0:00:00Z - Completed lidocaine 0.05 MG/MG Medicated Patch 202200:00:00Z - Completed eszopiclone 3 MG Oral Tablet [id number] 0:00:00Z - Completed metronidazole 0.01 MG/MG Topical Gel 2022T00:00:00Z - Completed milnacipran hydrochloride 25 MG Oral Tablet [Savella] - Completed 24 HR metoprolol succinate 1 00 MG Extended Release Oral Tablet - Complete d milnacipran hydrochloride 25 MG Oral Tablet [Savella] - Completed milnacipran hydrochloride 25 MG Oral Tablet [Savella] - Completed atorvastatin 20 MG Oral Tablet 2023-09-10 T00:00:00Z - Completed amlodipine 5 MG Oral Tablet [id number] :00:00Z - Completed eszopiclone 3 MG Oral Tablet [id number] 0:00:00Z - Completed milnacipran hydrochloride 25 MG Oral Tablet [Savella] - Completed montelukast 10 MG Oral Tablet 2023-09-25 00:00:00Z - Completed metronidazole 0.01 MG/MG Topical Gel 202300:00:00Z - Completed eszopiclone 3 MG Oral Tablet [id number] 0:00:00Z - Completed eszopiclone 3 MG Oral Tablet [id number] 0:00:00Z - Completed atorvastatin 20 MG Oral Tablet 2023-07-18 T00:00:00Z - Completed 24 HR metoprolol succinate 1 00 MG Extended Release Oral Tablet - Complete d ezetimibe 10 MG Oral Tablet [id number] :00:00Z - Completed levothyroxine sodium 0.05 MG Oral Tablet - Completed gabapentin 600 MG Oral Tablet 2023-03-11 00:00:00Z - Completed eszopiclone 3 MG Oral Tablet [id number] 0:00:00Z - Completed ezetimibe 10 MG Oral Tablet [id number] :00:00Z - Completed lidocaine 0.05 MG/MG Medicated Patch 202300:00:00Z - Completed metronidazole 0.01 MG/MG Topical Gel 202200:00:00Z - Completed fluticasone propionate 0.05 MG/ACTUAT Metered Dose Nasal [place] - Co mpleted montelukast 10 MG Oral Tablet 2023-03-18 00:00:00Z - Completed hydrochlorothiazide 25 MG Or al Tablet - Completed eszopiclone 3 MG Oral Tablet [id number] 0:00:00Z - Completed - - Compl eted hydrochlorothiazide 25 MG Or al Tablet - Completed levothyroxine sodium 0.05 MG Oral Tablet - Completed milnacipran hydrochloride 25 MG Oral Tablet [Savella] - Completed Patient Care team information Name Category Status Period Participants - - Proposed period not known -
--- OUTSIDE RECORDS SUMMARY | 2024-06-28 17:11 | XMS_ITS | Encounter Summary ---
Author Organization [facility] Healthcare Address [address] [place] [address] Care Team Providers Care Glass Etcher Name Role Phone Elvis Lopez MD Primary Care Provider [phone] Catherine Todd MD Unavailable [phone] Reason for Visit * Reason Comments Valve Disorder Hypertension Annual f/u Encounter Details Date Type Department Care Team (Latest Contact Info) Description 04/13/2024 8:30 AM CDT Office Visit [facility] Medical Group Cardiology [address] [facility] [address] [address] Lawrence Danielson MD [address] [facility] [address] [place] [address] Nonrheumatic mitral valve regurgitation (Primary [...] on file Legal Sex Female 3:01 AM EXPORT COORDINATOR Gender Identity Female 06/07/2020 11:17 AM EXPORT COORDINATOR Sexual Orientation Straight 06/07/2020 11 :17 AM EXPORT COORDINATOR documented as of this encounter Last Filed [...] to her MR which is graded as iyeb-nc-ladxlyjl by echocardiogram. She also has some elevation [...] tablet, , Disp: , Rfl: glucosam velasquez ofy-bzjoqpklm-U-Mn 873-025-74-3 mg capsule, , Disp: , Rfl: hydroCHLOROthiazide [...] Take by mouth, Disp: , Rfl: omega 0-azo-dug-fish oil (Fish OiL) 100-160-1,000 mg capsule, Take [...] mouth added in this encounter Care Teams Glass Etcher Relationship Specialty Start Date End Date Elvis Lopez MD [facility] [place] [address] PCP - General Family Medicine 02/04/23 Catherine Todd MD [address] DIV IM BONE MARROW TRANSPLANT, [address] [place] [address] Medical Oncologist/Exhibit Designer Hematology 08/27/23 documented as of this encounter
--- OUTSIDE RECORDS SUMMARY | 2024-06-28 17:11 | XMS_ITS ---
Author Organization [facility] [address] Address [address] [place] [address] Care Team Providers Care Operating Room Technician Name Role Phone Elvis Lopez MD Primary Care Provider [phone] Catherine Todd MD Unavailable [phone] Active Problems Patient Care Coordination No te Formatting of this note migh t be different from the original. Labs at [facility] prior to 3 mo f / u. 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/HCC) 06/07/2020 Multiple myeloma not having achieved remission ( 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 Treatments may have been administered in another system. Lifetime Dose Tracking * Chemical Lifetime Dose Automatic Entry Manual Entr y Fluoro Time 0.355 minutes 0.355 minutes 0 minutes Air kerma at the reference point (Ka,r) 2.78 mGy 2 .78 mGy 0 mGy
--- OUTSIDE RECORDS SUMMARY | 2024-06-28 17:11 | XMS_ITS | Encounter Summary ---
Author Organization [facility] Address [address] [place] [address] Phone Care Team Providers Care Lime Puller Name Role Phone Elvis Lopez MD Primary Care Provider [phone] Catherine Todd MD Unavailable Encounter Details Date Type Department Care Team (Late st Contact Info) Description 12/13/2023 Orders Only [facility] Oncology [address] [facility] [address] [place] [address] Catherine Todd MD [address] DIV IM BONE MARROW TRANSPLANT, [address] [place] [address] Social History Tobacco Use Types Packs/Day Years [...] on file Legal Sex Female 3:01 AM LINE TENDER Gender Identity Female 06/07/2020 11:17 AM LINE TENDER Sexual Orientation Straight 06/07/2020 11 :17 AM LINE TENDER documented as of this encounter Plan of Treatment Not on file documented as of this encounter Visit Diagnoses Not on filedocumented in this encounter Care Teams Lime Puller Relationship Specialty Start Date End Date Elvis Lopez MD [address] [facility] [place] [address] PCP - General Family Medicine 02/04/23 Catherine Todd MD [address] DIV IM BONE MARROW TRANSPLANT, [address] [place] [address] Medical Oncologist/Line Cleaner Hematology 08/27/23 documented as of this encounter
--- OUTSIDE RECORDS SUMMARY | 2024-06-28 17:12 | XMS_ITS | Encounter Summary ---
Author Organization [facility] Address [address] [place] [address] Care Team Providers Care Electrician Marine Name Role Phone Yosi Whaley MD Primary Care Provider [phone] Yosi Whaley MD Unavailable Reason for Visit * Cardiology (Routine) - Closed Specialty Diagnoses / Procedures Referred By Contac t Referred To Contact Diagnoses Primary hypertension Other chest pain Nonrheumatic mitral valve regurgitation Pulmonary hypertension (HCC) Procedures Transthoracic Echo Complete W Doppler/CF Syed Almonte MD Phone: tel: fax: External Order Referral ID Status Reason Start Date Expiration Date Visits Re quested Visits Authorized [id number] Closed 07/10/2021 08/09/2022 1 1 Encounter Details Date Type Department Care Team (Latest Contact Info) Description 01/16/2022 11:15 AM CDT Ancillary Procedure [facility] Cardiology [address] [place] [address] Primary hypertension; Other chest pain; Nonrheumatic mitral [...] on file Legal Sex Female 3:01 AM SOCIAL SERVICE COORDINATOR Gender Identity Female 06/07/2020 11:17 AM SOCIAL SERVICE COORDINATOR Sexual Orientation Straight 06/07/2020 11 :17 AM SOCIAL SERVICE COORDINATOR documented as of this encounter Plan of [...] AM CDT Narrative 01/16/2022 12:18 PM CDT [facility] Cardiology [address], [place] [address] [address], [place] [address] P:[phone] P:[phone] Echocardiographic Report Patient Name: RIGOBERTO ELISE : 1940 Study Date: 01/16/2022 11:07:44 AM Gender: F Tech: Location: ID Ref.Provider: SYED ALMONTE Height(Cm): 173 BSA: 2.09 [...] Findings: Interpretation Site: Exam was interpreted at [facility]. Left Ventricle: Normal left ventricular systolic function. [...] Procedure Note Syed Almonte MD - 01/16/2022 [facility] Cardiology [address], [place] [address] [address], [place] [address] P:[phone] P:[phone] Echocardiographic Report Patient Name: RIGOBERTO ELISE : 1940 Study Date: 01/16/2022 11:07:44 AM Gender: F Tech: Location: [facility].Provider: SYED ALMONTE Height(Cm): 173 BSA: 2.09 [...] Findings: Interpretation Site: Exam was interpreted at [facility]. Left Ventricle: Normal left ventricular systolic function. [...] diseases documented in this encounter Care Teams Electrician Marine Relationship Specialty Start Date End Date Yosi Whaley MD [address] [place] [id number] PCP - General 07/14/19 02/03/23 Yosi Whaley MD [address] [place] [id number] 07/14/19 02/03/23 documented as of this encounter
--- OUTSIDE RECORDS SUMMARY | 2024-06-28 17:12 | XMS_ITS | Encounter Summary ---
Author Organization [facility] Address [address] [place] [address] Care Team Providers Care Catheter Builder Name Role Phone Yosi Whaley MD Primary Care Provider [phone] Yosi Whaley MD Unavailable Reason for Visit * Reason Comments Follow-up 6 mo f/u and echo sa Hypertension Other chest pain Encounter Details Date Type Department Care Team (Latest Contact Info) Description 01/16/2022 1:00 PM CDT Office Visit [facility] Cardiology [address] [place] [address] Syed Almonte MD [address] [facility] [place] [address] Nonrheumatic mitral valve regurgitation (Primary Dx); Pulmonary [...] on file Legal Sex Female 3:01 AM CALL CENTER MANAGER Gender Identity Female 06/07/2020 11:17 AM CALL CENTER MANAGER Sexual Orientation Straight 06/07/2020 11 :17 AM CALL CENTER MANAGER documented as of this encounter Last [...] recall medication. In August 2019 high free [place] LC, K/L ratio 20.77, B2 microglobulin, low [...] gabapentin (NEURONTIN) 600 mg tablet glucosam velasquez ssq-mfxbawupx-A-Mn [id number] mg capsule glucosam velasquez mgl-bxysvqagt-J-Mn 314-700-03-3 mg capsule hydroCHLOROthiazide (HYDRODIURIL) 25 mg tablet levothyroxine (SYNTHROID, LEVOTHROID) 50 mcg tablet magnesium oxide 400 mg magnesium tablet metoprolol XL (TOPROL-XL) 100 mg 24 hr tablet metroNIDAZOLE 1 % gel with pump montelukast (SINGULAIR) 10 mg tablet MULTIVITAMIN ORAL naproxen (ANAPROX,ALEVE) 220 mg tablet omega 4-ljt-ngf-fish oil (Fish OiL) 100-160-1,000 mg capsule omeprazole [...] (See comments) Sleeps all day ??? Extendryl [Hbavbhghfanizein-Ld-Aurhrmlrab] Other (See comments) Hard to awaken ??? [...] medical record, and bloodwork/lipids. Jeniffer Almonte MD, [facility] This note is dictated and transcribed using [employer]. Lead Programmer Analyst variancesmay occur. Despite proofreading, typographical errors may [...] 12/25/2022 added in this encounter Care Teams Catheter Builder Relationship Specialty Start Date End Date Yosi Whaley MD [address] [place] [address] PCP - General 07/14/19 02/03/23 Yosi Whaley MD [address] [place] [address] 07/14/19 02/03/23 documented as of this encounter
--- OUTSIDE RECORDS SUMMARY | 2024-06-28 17:12 | XMS_ITS | Encounter Summary ---
Author Organization [facility] Address [address] [place] [address] Care Team Providers Care Legal Services Professional Name Role Phone Elvis Lopez MD Primary Care Provider [phone] Catherine Todd MD Unavailable [phone] Encounter Details Date Type Department Care Team (Late st Contact Info) Description 10/19/2023 Orders Only [facility] Radiology [address] [place] [address] Oly Lord RN Social History Tobacco Use [...] on file Legal Sex Female 3:01 AM WHAT JOB TITLES MEAN Gender Identity Female 06/07/2020 11:17 AM WHAT JOB TITLES MEAN Sexual Orientation Straight 06/07/2020 11 :17 AM WHAT JOB TITLES MEAN documented as of this encounter Plan of Treatment Not on file documented as of this encounter Visit Diagnoses Not on filedocumented in this encounter Care Teams Legal Services Professional Relationship Specialty Start Date End Date Elvis Lopez MD [address] [place], [place] [id number] PCP - General Family Medicine 02/04/23 Catherine Todd MD [address] [facility] BONE MARROW TRANSPLANT, [address] [place] [address] Medical Oncologist/Seed Cleaning Machine Operator Hematology 08/27/23 documented as of this encounter
--- OUTSIDE RECORDS SUMMARY | 2024-06-28 17:12 | XMS_ITS | Encounter Summary ---
Author Organization [facility] Healthcare Address [address] [place] [address] Care Team Providers Care Clinical Operations Manager Name Role Phone Elvis Lopez MD Primary Care Provider [phone] Catherine Todd MD Unavailable [phone] Encounter Details Date Type Department Care Team (Late st Contact Info) Description 08/27/2023 12:45 PM INSTRUMENT STERILIZER Lab [facility] Lab [address] [place] [id number] Multiple myeloma not having achieved remission (CMS/HCC) [...] on file Legal Sex Female 3:01 AM INSTRUMENT STERILIZER Gender Identity Female 06/07/2020 11:17 AM INSTRUMENT STERILIZER Sexual Orientation Straight 06/07/2020 11 :17 AM INSTRUMENT STERILIZER documented as of this encounter Plan of Treatment Not on file documented as of this encounter Procedures Procedure Name Priority Date/Time Associated Diagnosis Comments IMMUNOTYPING Routine 08/27/2023 12:29 PM INSTRUMENT STERILIZER Multiple myeloma not having achieved remission (CMS/HCC) (HCC) EGFR Routine 08/27/2023 12:29 PM INSTRUMENT STERILIZER Multiple myeloma not having achieved remission (CMS/HCC) (HCC) DIFFERENTIAL AUTO Routine 08/27/2023 12: 29 PM INSTRUMENT STERILIZER Multiple myeloma not having achieved remission (CMS/HCC) (HCC) IMMUNOGLOBULIN FREE LIGHT CHAINS (FLC) NEW Routine 08/27/2023 12:29 PM INSTRUMENT STERILIZER Multiple myeloma not having achieved remission (CMS/HCC) (HCC) IMMUNOGLOBULIN FREE LIGHT CHAINS Routine 08/27/2023 12:29 PM INSTRUMENT STERILIZER Multiple myeloma not having achieved remission (CMS/HCC) (HCC) CBC WITH AUTO DIFFERENTIAL Routine 08/27/2023 12:29 PM INSTRUMENT STERILIZER Multiple myeloma not having achieved remission (CMS/HCC) (HCC) PROTEIN ELECTROPHORESIS, WITH REFLEX, SERUM Routine 08/27/2023 12:29 PM INSTRUMENT STERILIZER Multiple myeloma not having achieved remission (CMS/HCC) (HCC) LACTATE DEHYDROGENASE Routine 08/27/2023 12:29 PM INSTRUMENT STERILIZER Multiple myeloma not having achieved remission (CMS/HCC) (HCC) IGA Routine 08/27/2023 12:29 PM INSTRUMENT STERILIZER Multiple myeloma not having achieved remission (CMS/HCC) (HCC) IGM Routine 08/27/2023 12:29 PM INSTRUMENT STERILIZER Multiple myeloma not having achieved remission (CMS/HCC) (HCC) IGG Routine 08/27/2023 12:29 PM INSTRUMENT STERILIZER Multiple myeloma not having achieved remission (CMS/HCC) (HCC) BETA 2 MICROGLOBULIN SERUM Routine 08/27/2023 12:29 PM INSTRUMENT STERILIZER Multiple myeloma not having achieved remission (CMS/HCC) (HCC) COMPREHENSIVE METABOLIC PANEL Routine 08/27/2023 12:29 PM INSTRUMENT STERILIZER Multiple myeloma not having achieved remission (CMS/HCC) (HCC) documented in this encounter Results * (ABNORMAL) Immunoglobulin Free Light Chains (FLC) New (08/27/2023 12:29 PM INSTRUMENT STERILIZER) Thompson/Lambda ratio [facility] 23.67(H) 0.26 - 1.65 Comment: Interpretive Data The Binding Site FreeLite assay procedure was used. Results from different manufacturers or methods may not be comparable. Serial testing should be performed using the same methods and instrumentation. Current Interpretive Data was last revised on 2023. Testing performed by: [facility], [address] [place]., [address] Thompson free light chain [facility] 18.70(H) 0.33 - 1.94 mg/dL AURELIO Comment: Interpretive Data The Binding Site FreeLite assay procedure was used. Results from different manufacturers or methods may not be comparable. Serial testing should be performed using the same methods and instrumentation. Current Interpretive Data was last revised on 2023. Testing performed by: [facility], [address] [place]., [address] Lambda free light chain [facility] 0.79 0.57 - 2.63 mg/dL AURELIO Comment: Interpretive Data The Binding Site FreeLite assay procedure was used. Results from different manufacturers or methods may not be comparable. Serial testing should be performed using the same methods and instrumentation. Current Interpretive Data was last revised on 2023. Testing performed by: [facility], [address] [place]., [address] Blood 08/27/2023 12:2 9 PM INSTRUMENT STERILIZER 08/27/2023 3:03 PM INSTRUMENT STERILIZER Narrative AURELIO - 08/30/2023 3:08 PM CDT [...] MD LAB BLOOD ORDERABLES Final Result AURELIO [address] [facility] Department [place] [address] * eGFR (08/27/2023 12:29 PM INSTRUMENT STERILIZER) [facility] eGFR 74 mL/min/1. 73 m2 Comment: Interpretive [...] was last reviewed 2021. Testing performed by: [facility], [address] [place] [address]., [address] Blood 08/27/2023 12:2 9 PM INSTRUMENT STERILIZER 08/27/2023 12:32 PM INSTRUMENT STERILIZER us Catherine Todd MD LAB BLOOD ORDERABLES Final Result AURELIO [address] [facility] Department [place] [address] * Differential, auto (08/27/2023 12:29 PM INSTRUMENT STERILIZER) [facility] Neutrophil abs 1.8 1.5 - 6.5 K/cumm Comment:Testing performed by : [facility], [address] [place] [address], [place]., [address] Imm gran abs 0.0 0.0 - 0.1 K/cumm [facility] Comment:Testing performed by : [facility], [address] [place] [address], [place]., [address] Lymphocyte abs 1.8 0.8 - 3.3 K/cumm [facility] Comment:Testing performed by : [address] [address] Monocyte abs 0.4 0.2 - 0.8 K/cumm [facility] Comment:Testing performed by : [address], [place]., [address] Eosinophil abs 0.1 0.0 - 0.5 K/cumm [facility] Comment:Testing performed by : [address] [address] Basophil abs 0.0 0.0 - 0.1 K/cumm [facility] Comment:Testing performed by : [address] [address] Neutrophil pct 43.8 % [facility] Comment: Interpretive Data Percent cell count reference ranges are not reported, since discordance with absolute values may lead to misinterpretation of CBC data. Current Interpretive Data was last revised on 2017. Testing performed by: [address] [address] Imm gran pct 0.2 % [facility] Comment: Interpretive Data Percent cell count reference ranges are not reported, since discordance with absolute values may lead to misinterpretation of CBC data. Current Interpretive Data was last revised on 2017. Testing performed by: [address] [address] Lymphocyte pct 43.8 % [facility] Comment: Interpretive Data Percent cell count reference ranges are not reported, since discordance with absolute values may lead to misinterpretation of CBC data. Current Interpretive Data was last revised on 2017. Testing performed by: [address] [address] Monocyte pct 9.5 % [facility] Comment: Interpretive Data Percent cell count reference ranges are not reported, since discordance with absolute values may lead to misinterpretation of CBC data. Current Interpretive Data was last revised on 2017. Testing performed by: [address] [address] Eosinophil pct 2.5 % [facility] Comment: Interpretive Data Percent cell count reference ranges are not reported, since discordance with absolute values may lead to misinterpretation of CBC data. Current Interpretive Data was last revised on 2017. Testing performed by: [address] [address] Basophil pct 0.2 % [facility] Comment: Interpretive Data Percent cell count reference ranges are not reported, since discordance with absolute values may lead to misinterpretation of CBC data. Current Interpretive Data was last revised on 2017. Testing performed by: [address] [address] Blood 08/27/2023 12:2 9 PM INSTRUMENT STERILIZER 08/27/2023 12:32 PM INSTRUMENT STERILIZER Catherine Todd MD LAB BLOOD ORDERABLES Final Result Performing Organization Address City/[facility]/ZIP Co de Phone Number [address] Department [place] [address] * (ABNORMAL) Beta 2 microglobulin, serum (08/27/2023 12:29 PM INSTRUMENT STERILIZER) Beta 2 Microglobulin, Serum 3.70(H) 1.00 - 2.50 mg/L Comment: Interpretive Data The Felisa Beta-2 microglobulin assay procedure was used. Results from different manufacturers or methods may not be comparable. Serial testing should be performed using the same method. Testing performed by: [address] [address] Blood 08/27/2023 12:2 9 PM INSTRUMENT STERILIZER 08/27/2023 1:43 PM INSTRUMENT STERILIZER Catherine Todd MD LAB BLOOD ORDERABLES Final Result Performing Organization Address City/[facility]/ZIP Co de Phone Number AURELIO [address] Department [place] [address] * (ABNORMAL) CBC with auto differential (08/27/2023 12:29 PM INSTRUMENT STERILIZER) [facility] WBC 4.0 3.8 - 9.9 K/cumm Comment:Testing performed by : [address] [address] Hgb 11.0(L) 11.9 - 15.5 g/dL AURELIO Comment:Testing performed by : [address] [address] Hct 32.6(L) 35.6 - 45.5 % AURELIO Comment:Testing performed by : [address] [address] Plt 175 150 - 400 K/cumm AURELIO Comment:Testing performed by : [address] [address] MPV 10.6 9.1 - 12.3 fL AURELIO Comment:Testing performed by : [address], [address] RBC 3.46(L) 3.90 - 5.20 M/cumm AURELIO Comment:Testing performed by : [address] [address] MCV 94.2 81.3 - 96.4 fL AURELIO Comment:Testing performed by : [address] [address] MCH 31.8 27.1 - 33.3 pg AURELIO Comment:Testing performed by : [address] [address] MCHC 33.7 32.3 - 35.7 g/dL AURELIO Comment:Testing performed by : [address] [address] RDW CV 16.2(H) 11.1 - 14.9 % AURELIO Comment:Testing performed by : [address], [address] RDW SD 55.7(H) 35.7 - 48.1 fL AURELIO Comment:Testing performed by : [address] [address] NRBC abs 0.00 0.00 - 0.01 K/cumm AURELIO Comment:Testing performed by : [address] [address] Blood 08/27/2023 12:2 9 PM INSTRUMENT STERILIZER 08/27/2023 12:32 PM INSTRUMENT STERILIZER Catherine Todd MD LAB BLOOD ORDERABLES Final Result [facility] [address] [facility] Department [place] [address] * (ABNORMAL) Comprehensive metabolic panel (08/27/2023 12:29 PM INSTRUMENT STERILIZER) Sodium 135 135 - 145 mmol/L Comment:Testing performed by : [address] [address] Potassium, pl 3.9 3.3 - 4.9 mmol/L AURELIO Comment:Testing performed by : [address] [address] Chloride 96(L) 97 - 110 mmol/L AURELIO Comment:Testing performed by : [address] [address] CO2 25 22 - 32 mmol/L AURELIO Comment:Testing performed by : [address] [address] Anion gap 14 2 - 15 mmol/L AURELIO Comment:Testing performed by : [address] [address] BUN 14 6 - 25 mg/dL AURELIO Comment:Testing performed by : [address] [address] Creatinine 0.80 0.60 - 1.10 mg/dL AURELIO Comment:Testing performed by : [address] [address] Glucose 123 70 - 199 mg/dL AURELIO [...] was last revised 2022. Testing performed by: [address] [address] Calcium 9.5 8.5 - 10.3 mg/dL AURELIO Comment:Testing performed by : [address] [address] Bilirubin, total 0.3 0.1 - 1.2 mg/dL AURELIO Comment:Testing performed by : [address] [address] Protein, pl 6.5 6.5 - 8.5 g/dL AURELIO Comment:Testing performed by : [address] [address] Albumin 4.5 3.5 - 5.0 g/dL AURELIO Comment:Testing performed by : [address] [address] Alk phos 65 40 - 130 Units/L AURELIO Comment:Testing performed by : [address] [address] ALT 16 7 - 45 Units/L AURELIO Comment:Testing performed by : [address] [address] AST 18 10 - 45 Units/L AURELIO Comment:Testing performed by : [address] [address] Blood 08/27/2023 12:2 9 PM INSTRUMENT STERILIZER 08/27/2023 12:32 PM INSTRUMENT STERILIZER us Catherine Todd MD LAB BLOOD ORDERABLES Final Result AURELIO [address] [facility] Department of Laboratories [place], [place] [phone] * (ABNORMAL) IgA (08/27/2023 12:29 PM INSTRUMENT STERILIZER) Pathologist [facility] Immunoglobulin A <50(L) 70 - 400 mg/dL Blood 08/27/2023 12:2 9 PM INSTRUMENT STERILIZER 08/27/2023 2:26 PM INSTRUMENT STERILIZER Catherine Todd MD LAB BLOOD ORDERABLES Final Result OLIVIA[address] [place] [address] * (ABNORMAL) IgG (08/27/2023 12:29 PM INSTRUMENT STERILIZER) [facility] Immunoglobulin G 387(L) 700 - 1,600 mg/dL Blood 08/27/2023 12:2 9 PM INSTRUMENT STERILIZER 08/27/2023 2:26 PM INSTRUMENT STERILIZER Catherine Todd MD LAB BLOOD ORDERABLES Final Result Performing Organization Address City/[facility] Co de Phone Number [address] [place] [address] * (ABNORMAL) IgM (08/27/2023 12:29 PM INSTRUMENT STERILIZER) [facility] Immunoglobulin M <25(L) 40 - 230 mg/dL Blood 08/27/2023 12:2 9 PM INSTRUMENT STERILIZER 08/27/2023 2:26 PM INSTRUMENT STERILIZER Catherine Todd MD LAB BLOOD ORDERABLES Final Result Performing Organization Address City/[facility] Co de Phone Number [address] [place] [address] * Immunotyping, serum (08/27/2023 12:29 PM INSTRUMENT STERILIZER) [facility] Immunosubtraction Please see comment Comment: FREE KAPPA LIGHT CHAIN PARAPROTEIN Reviewed and signed by Zak Graves MD, PhD on 08/28/2023 Testing performed by: [facility], [address] [place]., [address] Blood 08/27/2023 12:2 9 PM INSTRUMENT STERILIZER 08/27/2023 3:03 PM INSTRUMENT STERILIZER Result [facility] Catherine Todd MD LAB BLOOD ORDERABLES Final Result Performing Organization Address City/[facility] Co de Phone Number AURELIO [address] [place] [address] * (ABNORMAL) Immunoglobulin free light chains (08/27/2023 12:29 PM INSTRUMENT STERILIZER) Thompson/Lambda ratio 20.39(H) 0.26 - 1.65 Comment:Testing performed by : [facility], [address] [place]., [address] Thompson free light chain 16.72(H) 0.33 - 1.94 mg/dL AURELIO Comment: Interpretive Data The Felisa Ig Thompson FLC assay procedure was used. Results from different manufacturers or methods may not be comparable. Serial testing should be performed using the same method. Testing performed by: [facility], [address] [place]., [address] Lambda free light chain 0.82 0.57 - 2.63 mg/dL AURELIO Comment: Interpretive Data The Felisa Ig Lambda FLC assay procedure was used. Results from different manufacturers or methods may not be comparable. Serial testing should be performed using the same method. Testing performed by: [facility], [address] [place]., [address] Blood 08/27/2023 12:2 9 PM INSTRUMENT STERILIZER 08/27/2023 3:03 PM INSTRUMENT STERILIZER Catherine Todd MD LAB BLOOD ORDERABLES Final Result Performing Organization Address City/[facility]/ZIP Co de Phone Number OLIVIA[address] [place] [address] * Lactate dehydrogenase (LD) (08/27/2023 12:29 PM INSTRUMENT STERILIZER) Pathologist [facility] Lactate dehydrogenase (LDH) 191 100 - 250 Units/L Comment:Testing performed by : [facility], [address] [place] [address]., [address] Blood 08/27/2023 12:2 9 PM INSTRUMENT STERILIZER 08/27/2023 12:32 PM INSTRUMENT STERILIZER Catherine Todd MD LAB BLOOD ORDERABLES Final Result [facility] [address] [facility] Department [place] [address] * (ABNORMAL) Protein electrophoresis with reflex, serum (08/27/2023 12:29 PM INSTRUMENT STERILIZER) [facility] Protein, sr 6.5 6.2 - 8.2 g/dL Comment:Testing performed by : [facility], [address] [place] [address]., [address] Albumin 4.3 3.2 - 5.0 g/dL AURELIO Comment:Testing performed by : [facility], [address] [place] [address]., [address] Alpha-1 globulin 0.3 0.2 - 0.4 g/dL AURELIO Comment:Testing performed by : [facility], [address] [place] [address]., [address] Alpha-2 globulin 0.8 0.5 - 1.0 g/dL AURELIO Comment:Testing performed by : [facility], [address] [place] [address]., [address] Beta-1 globulin 0.4 0.3 - 0.6 g/dL AURELIO Comment:Testing performed by : [facility], [address] [place] [address]., [address] Beta-2 globulin 0.3 0.2 - 0.6 g/dL AURELIO Comment:Testing performed by : [facility], [address] [place] [address]., [address] Gamma globulin 0.4(L) 0.5 - 1.7 g/dL AURELIO DELGADILLO Comment:Testing performed by : [facility], [address] [place]., [address] Rstr Pk Gamma 0.1(H) 0.0 - 0.0 g/dL AURELIO DELGADILLO Comment:Testing performed by : [facility], [address] [place]., [address] SPEP interp Please see comment AURELIO DELGADILLO Comment: Abnormal restricted peak in gamma region Decreased gamma globulins See immunotyping for further information Reviewed and signed by Zak Graves MD, PhD on 08/28/2023 Testing performed by: [facility], [address] [place]., [address] Blood 08/27/2023 12:2 9 PM INSTRUMENT STERILIZER 08/27/2023 3:03 PM INSTRUMENT STERILIZER us Catherine Todd MD LAB BLOOD ORDERABLES Final Result AURELIO [address] [facility] Department [place] [address] documented in this encounter Visit Diagnoses Diagnosis Multiple myeloma not having achieved remission (CMS/HCC) (HCC) documented in this encounter Care Teams Clinical Operations Manager Relationship Specialty Start Date End Date Elvis Lopez MD [facility] [facility] [place] [address] PCP - General Family Medicine 02/04/23 Catherine Todd MD [address] DIV IM BONE MARROW TRANSPLANT, [address] [place] [address] Medical Oncologist/Recreation Coordinator Hematology 08/27/23 documented as of this encounter
--- OUTSIDE RECORDS SUMMARY | 2024-06-28 17:12 | XMS_ITS | Encounter Summary ---
Author Organization [facility] Address [address] [facility] [address] [place] [address] Care Team Providers Care Vinegar Maker Name Role Phone Yosi Whaley MD Primary Care Provider [phone] Yosi Whaley MD Unavailable Reason for Visit * Reason Comments Follow-up 6 mo f/u. Going down hill after having covid in Jun 2020 Mitral valve insufficiency Encounter Details Date Type Department Care Team (Late st Contact Info) Description 01/02/2021 9:45 AM CDT Office Visit [facility] Cardiology [address] [place] [address] Syed Almonte MD [address] [facility] [address] [place] [address] Other chest pain (Primary Dx); [...] on file Legal Sex Female 3:01 AM FENCE MACHINE OPERATOR Gender Identity Female 06/07/2020 11:17 AM FENCE MACHINE OPERATOR Sexual Orientation Straight 06/07/2020 11 :17 AM FENCE MACHINE OPERATOR documented as of this encounter Last [...] nor clear indication at this time. I rober stop Niacin unless very compelling reason to [...] QRS otherwise unremarkable 61 beats per minute SD interval 174 milliseconds QRS 96 milliseconds QT [...] recall medication. In August 2019 high free [place] LC, K/L ratio 20.77, B2 microglobulin, low [...] gabapentin (NEURONTIN) 600 mg tablet glucosam velasquez cpa-bxxlxitwx-I-Mn [id number] mg capsule hydroCHLOROthiazide (HYDRODIURIL) 25 mg tablet [...] (See comments) Sleeps all day ??? Extendryl [Cbqsvzkeakcaeldo-Ka-Pqzuertbmq] Other (See comments) Hard to awaken ??? [...] (H) 0.60 - 0.93 mg/dL eGFR NON-AFR. GAMBIAN 48 (L) > OR = 60 mL/min/1.73m2 [...] WITH RATIO, SERUM Result Value Ref Range [place]owrie light chain, free 121.0 (H) 3.3 - 19.4 mg/L Lambda light chain, free 6.6 5.7 - 26.3 mg/L [place]/Lambda light chains free with ratio 18.33 (H) [...] medical record, and bloodwork/lipids. Jeniffer Almonte MD, [facility] This note is dictated and transcribed using [employer] Direct Software. Diamond Setter Apprentice variancesmay occur. Despite proofreading, typographical errors may [...] documented as of this encounter Care Teams Vinegar Maker Relationship Specialty Start Date End Date Yosi Whaley MD [address] [place] [address] PCP - General 07/14/19 02/03/23 Yosi Whaley MD [address] [place] [address] 07/14/19 02/03/23 documented as of this encounter
--- OUTSIDE RECORDS SUMMARY | 2024-06-28 17:12 | XMS_ITS | Encounter Summary ---
Author Organization [facility] Address [address] [place] [address] Phone Care Team Providers Care Compliance Review Specialist Name Role Phone Elvis Lopez MD Primary Care Provider [phone] Catherine Todd MD Unavailable [phone] Encounter Details Date Type Department Care Team (Late st Contact Info) Description 12/03/2023 1:[address] [facility] Oncology [address] [place] [phone] Multiple myeloma not having achieved remission [...] on file Legal Sex Female 3:01 AM LAUNDRY CLERK Gender Identity Female 06/07/2020 11:17 AM LAUNDRY CLERK Sexual Orientation Straight 06/07/2020 11 :17 AM LAUNDRY CLERK documented as of this encounter Plan of Treatment Not on file documented as of this encounter Visit Diagnoses Diagnosis Multiple myeloma not having achieved remission (CMS/HCC) (HCC) documented in this encounter Orders Appointment Requests Count Last Ordered Date Fi rst Ordered Date ONCBCN LAB APPOINTMENT 1 12/03/2023 documented in this encounter Care Teams Compliance Review Specialist Relationship Specialty Start Date End Date Elvis Lopez MD [address] [facility] [place] [address] PCP - General Family Medicine 02/04/23 Catherine Todd MD [address] DIV IM BONE MARROW TRANSPLANT, [address] [place] [address] Medical Oncologist/Comb Tender Hematology 08/27/23 documented as of this encounter
--- OUTSIDE RECORDS SUMMARY | 2024-06-28 17:12 | XMS_ITS | Encounter Summary ---
Author Organization [facility] Address [address] [place] [address] Phone Care Team Providers Care Carriage Setter Name Role Phone Elvis Lopez MD Primary Care Provider [phone] Encounter Details Date Type Department Care Team (Late st Contact Info) Description 08/17/[address] [facility] [address] [facility] [address] [place] [phone] Sofi Zayas CMA Social History Tobacco [...] on file Legal Sex Female 3:01 AM PULP COOKER Gender Identity Female 06/07/2020 11:17 AM PULP COOKER Sexual Orientation Straight 06/07/2020 11 :17 AM PULP COOKER documented as of this encounter Miscellaneous Notes * Telephone Encounter - Sofi Zayas CMA - 08/17/2023 12:46 PM PULP COOKER Called patient and informed she will needs [...] for labs 1/2 hour prior to ROV COOKER * Telephone Encounter - Falguni Lomeli RN - 08/17/2023 11:56 AM PULP COOKER Yes she will need labs. I placed orders COOKER * Telephone Encounter - Sofi Zayas CMA - 08/17/2023 11:42 AM PULP COOKER Patient called asking if she needs labs prior to her ROV with Dr Todd on 08/27/2023 COOKER documented in this encounter Plan of Treatment Not on file documented as of this encounter Results * (ABNORMAL) Protein electrophoresis with reflex, serum (08/27/2023 12:29 PM PULP COOKER) Pathologist [facility] Protein, sr 6.5 6.2 - 8.2 g/dL Comment:Testing performed by : [facility], [address] [place]., [address] Albumin 4.3 3.2 - 5.0 g/dL AURELIO Comment:Testing performed by : [facility], [address] [place]., [address] Alpha-1 globulin 0.3 0.2 - 0.4 g/dL AURELIO Comment:Testing performed by : [facility], [address] [place]., [address] Alpha-2 globulin 0.8 0.5 - 1.0 g/dL AURELIO Comment:Testing performed by : [facility], [address] [place] [address] Beta-1 globulin 0.4 0.3 - 0.6 g/dL AURELIO Comment:Testing performed by : [facility], [address] [place]., [address] Beta-2 globulin 0.3 0.2 - 0.6 g/dL AURELIO DELGADILLO Comment:Testing performed by : [facility], [address] [place]., [address] Gamma globulin 0.4(L) 0.5 - 1.7 g/dL AURELIO Comment:Testing performed by : [facility], [address] [place]., [address] Rstr Pk Gamma 0.1(H) 0.0 - 0.0 g/dL AURELIO DELGADILLO Comment:Testing performed by : [facility], [address] [facility], [address] SPEP interp Please see comment AURELIO Comment: Abnormal restricted peak in gamma region Decreased gamma globulins See immunotyping for further information Reviewed and signed by Zak Graves MD, PhD on 08/28/2023 Testing performed by: [facility], [address] [place]., [address] Blood 08/27/2023 12:2 9 PM PULP COOKER 08/27/2023 3:03 PM PULP COOKER Catherine Todd MD LAB BLOOD ORDERABLES Final Result [facility] [address] [facility] Department [place] [address] * Lactate dehydrogenase (LD) (08/27/2023 12:29 PM PULP COOKER) Lactate dehydrogenase (LDH) 191 100 - 250 Units/L Comment:Testing performed by : [facility], [address] [place] [address]., [address] Blood 08/27/2023 12:2 9 PM PULP COOKER 08/27/2023 12:32 PM PULP COOKER Catherine Todd MD LAB BLOOD ORDERABLES Final Result Performing Organization Address [facility] Co de Phone Number AURELIO [address] [address] * (ABNORMAL) Immunoglobulin free light chains (08/27/2023 12:29 PM PULP COOKER) Pathologist [facility] [place]/Lambda ratio 20.39(H) 0.26 - 1.65 Comment:Testing performed by : [facility], [address] [place]., [address] [place] free light chain 16.72(H) 0.33 - 1.94 mg/dL [facility] Comment: Interpretive Data The Felisa Ig [place] FLC assay procedure was used. Results from different manufacturers or methods may not be comparable. Serial testing should be performed using the same method. Testing performed by: [facility], [address] [place] [address]., [address] Lambda free light chain 0.82 0.57 - 2.63 mg/dL [facility] Comment: Interpretive Data The Felisa Ig Lambda FLC assay procedure was used. Results from different manufacturers or methods may not be comparable. Serial testing should be performed using the same method. Testing performed by: [facility], [address] [place] [address]., [address] Blood 08/27/2023 12:2 9 PM PULP COOKER 08/27/2023 3:03 PM PULP COOKER Catherine Todd MD LAB BLOOD ORDERABLES Final Result Performing Organization Address [facility] Co de Phone Number AURELIO [address] [place] [address] * Immunotyping, serum (08/27/2023 12:29 PM PULP COOKER) Pathologist [facility] Immunosubtraction Please see comment Comment: FREE [place]APPA LIGHT CHAIN PARAPROTEIN Reviewed and signed by Zak Graves MD, PhD on 08/28/2023 Testing performed by: [facility], [address] [place] [address]., [address] Blood 08/27/2023 12:2 9 PM PULP COOKER 08/27/2023 3:03 PM PULP COOKER Result Erik Todd MD LAB BLOOD ORDERABLES Final Result Performing Organization Address [facility] Co de Phone Number [address] [place] [address] * (ABNORMAL) IgM (08/27/2023 12:29 PM PULP COOKER) Immunoglobulin M <25(L) 40 - 230 mg/dL Blood 08/27/2023 12:2 9 PM PULP COOKER 08/27/2023 2:26 PM PULP COOKER Result Erik Todd MD LAB BLOOD ORDERABLES Final Result Performing Organization Address [facility] de Phone Number [address] [place] [address] * (ABNORMAL) IgG (08/27/2023 12:29 PM PULP COOKER) Immunoglobulin G 387(L) 700 - 1,600 mg/dL Blood 08/27/2023 12:2 9 PM PULP COOKER 08/27/2023 2:26 PM PULP COOKER Result Erik Todd MD LAB BLOOD ORDERABLES Final Result Performing Organization Address [facility] de Phone Number [address] [place] [address] * (ABNORMAL) IgA (08/27/2023 12:29 PM PULP COOKER) Immunoglobulin A <50(L) 70 - 400 mg/dL Blood 08/27/2023 12:2 9 PM PULP COOKER 08/27/2023 2:26 PM PULP COOKER us Catherine Todd MD LAB BLOOD ORDERABLES Final Result [facility] [address] [facility] Department [place] [address] * (ABNORMAL) Comprehensive metabolic panel (08/27/2023 12:29 PM PULP COOKER) Sodium 135 135 - 145 mmol/L Comment:Testing performed by : [address] [address] Potassium, pl 3.9 3.3 - 4.9 mmol/L AURELIO Comment:Testing performed by : [address] [address] Chloride 96(L) 97 - 110 mmol/L AURELIO Comment:Testing performed by : [address] [address] CO2 25 22 - 32 mmol/L AURELIO Comment:Testing performed by : [address] [address] Anion gap 14 2 - 15 mmol/L AURELIO Comment:Testing performed by : [address] [address] BUN 14 6 - 25 mg/dL AURELIO Comment:Testing performed by : [address] [address] Creatinine 0.80 0.60 - 1.10 mg/dL AURELIO Comment:Testing performed by : [address] [address] Glucose 123 70 - 199 mg/dL AURELIO [...] was last revised 2022. Testing performed by: [address] [address] Calcium 9.5 8.5 - 10.3 mg/dL AURELIO Comment:Testing performed by : [address] [address] Bilirubin, total 0.3 0.1 - 1.2 mg/dL AURELIO Comment:Testing performed by : [address] [address] Protein, pl 6.5 6.5 - 8.5 g/dL AURELIO Comment:Testing performed by : [address] [address] Albumin 4.5 3.5 - 5.0 g/dL AURELIO Comment:Testing performed by : [address] [address] Alk phos 65 40 - 130 Units/L AURELIO Comment:Testing performed by : [address] [address] ALT 16 7 - 45 Units/L AURELIO Comment:Testing performed by : [address] [address] AST 18 10 - 45 Units/L AURELIO Comment:Testing performed by : [address] [address] Blood 08/27/2023 12:2 9 PM PULP COOKER 08/27/2023 12:32 PM PULP COOKER us Catherine Todd MD LAB BLOOD ORDERABLES Final Result Performing Organization Address City/State/[facility] Co de Phone Number [facility] [address] [facility] Department of Laboratories [place], [place] [id number] * (ABNORMAL) CBC with auto differential (08/27/2023 12:29 PM PULP COOKER) WBC 4.0 3.8 - 9.9 K/cumm Comment:Testing performed by : [address] [address] Hgb 11.0(L) 11.9 - 15.5 g/dL AURELIO Comment:Testing performed by : [address] [address] Hct 32.6(L) 35.6 - 45.5 % AURELIO DELGADILLO Comment:Testing performed by : [address], [address] Plt 175 150 - 400 K/cumm AURELIO DELGADILLO Comment:Testing performed by : [address] [address] MPV 10.6 9.1 - 12.3 fL AURELIO DELGADILLO Comment:Testing performed by : [address] [address] RBC 3.46(L) 3.90 - 5.20 M/cumm AURELIO DELGADILLO Comment:Testing performed by : [address], [address] MCV 94.2 81.3 - 96.4 fL AURELIO Comment:Testing performed by : [address] [address] MCH 31.8 27.1 - 33.3 pg AURELIO DELGADILLO Comment:Testing performed by : [address] [address] MCHC 33.7 32.3 - 35.7 g/dL AURELIO Comment:Testing performed by : [address] [address] RDW CV 16.2(H) 11.1 - 14.9 % AURELIO Comment:Testing performed by : [address] [address] RDW SD 55.7(H) 35.7 - 48.1 fL AURELIO Comment:Testing performed by : [address] [address] NRBC abs 0.00 0.00 - 0.01 K/cumm AURELIO Comment:Testing performed by : [address], [address] Blood 08/27/2023 12:2 9 PM PULP COOKER 08/27/2023 12:32 PM PULP COOKER us Catherine Todd MD LAB BLOOD ORDERABLES Final Result AURELIO DELGADILLO [address] [facility] [place] [address] * (ABNORMAL) Beta 2 microglobulin, serum (08/27/2023 12:29 PM PULP COOKER) Beta 2 Microglobulin, Serum 3.70(H) 1.00 - 2.50 mg/L Comment: Interpretive Data The Felisa Beta-2 microglobulin assay procedure was used. Results from different manufacturers or methods may not be comparable. Serial testing should be performed using the same method. 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
--- OUTSIDE RECORDS SUMMARY | 2024-06-28 17:12 | XMS_ITS | Encounter Summary ---
Author Organization [facility] Address [address] [facility] [address] [place] [address] Care Team Providers Care Conservation Scientist Name Role Phone Elvis Lopez MD Primary Care Provider [phone] Reason for Visit * Reason Comments Annual Exam Encounter Details Date Type Department Care Team (Late st Contact Info) Description 02/04/2023 3:30 PM CDT Office Visit [facility] Cardiology [address] [facility] [address] [place] [address] Tiffani Back NP [address] [facility] [address] [place] [address] Nonrheumatic mitral valve regurgitation (Primary [...] on file Legal Sex Female 3:01 AM FORENSIC COMPUTER EXAMINER Gender Identity Female 06/07/2020 11:17 AM FORENSIC COMPUTER EXAMINER Sexual Orientation Straight 06/07/2020 11 :17 AM FORENSIC COMPUTER EXAMINER documented as of this encounter Last Filed [...] from the original note were not included. [facility] Cardiology [address] [place] [address] Date of Visit: 02/04/2023 Patient ID: Sloane [...] recall medication. In August 2019 high free [place] LC, K/L ratio 20.77, B2 microglobulin, low [...] Other (See comments) Sleeps all day Extendryl [Vbsdtuuzicgbkjpt-Wy-Ddxmdfpvzp] Other (See comments) Hard to awaken Seldane [...] tablet, , Disp: , Rfl: glucosam velasquez ogu-azinfygvm-H-Mn 596-231-66-3 mg capsule, , Disp: , Rfl: hydroCHLOROthiazide [...] Take by mouth, Disp: , Rfl: omega 8-mbn-mvx-fish oil (Fish OiL) 100-160-1,000 mg capsule, Take [...] concerns. 02/04/2023 RAIZA Ortiz- Nurse Practitioner with [facility] Cardiology This note is dictated and transcribed using Nipendo Direct Software. Warp Spooler variancesmay occur. Despite proofreading, typographical errors may [...] Start Date End Da te glucosam velasquez lto-fjlaxtcak-V-Mn 773-805-54-3 mg capsule Duplicate order 02/05/20 documented as of this encounter Historical Medications * This list may reflect changes made after this encounter. atorvastatin (LIPITOR) 20 mg tablet Take 1 tablet (20 mg total) by mouth nightly at bedtime 01/22/2023 added in this encounter Care Teams Conservation Scientist Relationship Specialty Start Date End Date Elvis Lopez MD [facility] [facility] [address] PCP - General Family Medicine 02/04/23 documented as of this encounter
--- OUTSIDE RECORDS SUMMARY | 2024-06-28 17:12 | XMS_ITS | Encounter Summary ---
Author Organization [facility] Address [address] [place] [address] Phone Care Team Providers Care Woodworker Helper Name Role Phone Elvis Lopez MD Primary Care Provider [phone] Catherine Todd MD Unavailable [phone] Encounter Details Date Type Department Care Team (Late st Contact Info) Description 08/27/2023 Orders Only [facility] Oncology [address] [facility] [address] [place] [phone] Falguni Lomeli RN Social History Tobacco [...] on file Legal Sex Female 3:01 AM WEB PRODUCTION ARTIST Gender Identity Female 06/07/2020 11:17 AM WEB PRODUCTION ARTIST Sexual Orientation Straight 06/07/2020 11 :17 AM WEB PRODUCTION ARTIST documented as of this encounter Plan of Treatment Not on file documented as of this encounter Visit Diagnoses Not on filedocumented in this encounter Care Teams Woodworker Helper Relationship Specialty Start Date End Date Elvis Lopez MD [address] [place] [address] [place] [address] PCP - General Family Medicine 02/04/23 Catherine Todd MD [address] [employer], [address] [place] [address] Medical Oncologist/Product Support Representative Hematology 08/27/23 documented as of this encounter
--- OUTSIDE RECORDS SUMMARY | 2024-06-28 17:12 | XMS_ITS | Encounter Summary ---
Author Organization [facility] Address [address] [facility] [address] [place] [address] Care Team Providers Care Casino Cashier Manager Name Role Phone Yosi Whaley MD Primary Care Provider [phone] Yosi Whaley MD Unavailable Reason for Referral * Cardiology (Routine) - Closed Specialty Diagnoses / Procedures Referred By Contac t Referred To Contact Diagnoses Primary hypertension Other chest pain Nonrheumatic mitral valve regurgitation Pulmonary hypertension (HCC) Procedures Transthoracic Echo Complete W Doppler/CF Syed Almonte MD Phone: tel: fax: External Order Referral ID Status Reason Start Date Expiration Date Visits Re quested Visits Authorized [id number] Closed 07/10/2021 08/09/2022 1 1 LIER QUALITY MANAGER Reason for Visit * Reason Comments Follow-up 6 mo f/u Mitral Valve Insufficiency Encounter Details Date Type Department Care Team (Late st Contact Info) Description 07/10/2021 10:00 AM SUPPLIER QUALITY MANAGER Office Visit [facility] Cardiology [address] [facility] [address] [place] [address] Syed Almonte MD [address] [facility] [address] [place] [address] Primary hypertension (Primary Dx); Other [...] on file Legal Sex Female 3:01 AM SUPPLIER QUALITY MANAGER Gender Identity Female 06/07/2020 11:17 AM SUPPLIER QUALITY MANAGER Sexual Orientation Straight 06/07/2020 11 :17 AM SUPPLIER QUALITY MANAGER documented as of this encounter Last Filed Vital Signs Vital Sign Reading Time Taken Comments Blood Pressure 118/70 07/10/2021 10:16 AM SUPPLIER QUALITY MANAGER Pulse 68 07/10/2021 10:16 AM SUPPLIER QUALITY MANAGER Temperature - - Respiratory Rate - - Oxygen Saturation 96% 07/10/2021 10: 16 AM SUPPLIER QUALITY MANAGER Inhaled Oxygen Concentration - - Weight 92.5 kg (203 lb 14.4 oz) 022 10:16 AM SUPPLIER QUALITY MANAGER Height 172.7 cm (5' 8 ) 07/10/2021 10:1 6 AM SUPPLIER QUALITY MANAGER Body Mass Index 31 07/10/2021 10:16 AM SUPPLIER QUALITY MANAGER documented in this encounter Progress Notes * [...] recall medication. In August 2019 high free [place] LC, K/L ratio 20.77, B2 microglobulin, low [...] gabapentin (NEURONTIN) 600 mg tablet glucosam velasquez zsf-xvwycmllw-D-Mn 453-722-96-3 mg capsule hydroCHLOROthiazide (HYDRODIURIL) 25 mg tablet [...] (See comments) Sleeps all day ??? Extendryl [Sdbfdoneyoveqclq-Qp-Olwroqygml] Other (See comments) Hard to awaken ??? [...] This note is dictated and transcribed using RealTravel Direct Software. Asphalt Raker variancesmay occur. Despite proofreading, typographical errors may occur. LIER QUALITY MANAGER documented in this encounter Plan of Treatment Not on file documented as of this encounter Results * Transthoracic Echo (TTE) Complete W Doppler/CF (01/16/2022 11:07 AM CDT) Anatomical Region Laterality Modality Ultrasound 01/16/2022 11:0 7 AM CDT Narrative 01/16/2022 12:18 PM CDT [facility] Cardiology [address] [facility] [address], [place] [address] [address], [place] [address] P:[phone] P:[phone] Echocardiographic Report Patient Name: RIGOBERTO ELISE : 1940 Study Date: 01/16/2022 11:07:44 AM Gender: F Tech: Location: MD Ref.Provider: SYED ALMONTE Height(Cm): 173 BSA: 2.09 [...] Findings: Interpretation Site: Exam was interpreted at [facility]. Left Ventricle: Normal left ventricular systolic function. [...] Procedure Note Syed Almonte MD - 01/16/2022 [facility] Cardiology [address], [place] [address] [address] [facility] [address], [place] [address] P:[phone] P:[phone] Echocardiographic Report Patient Name: RIGOBERTO ELISE : 1940 Study Date: 01/16/2022 11:07:44 AM Gender: F Tech: Location: MD Ref.Provider: SYED ALMONTE Height(Cm): 173 BSA: 2.09 Weight(Kg): 95.26 Heart Rate: 61 BP: 163/64 Quality: Good Order Provider: SYED ALMONET Procedures: Echocardiographic Report: Transthoracic echocardiogram with complete [...] Findings: Interpretation Site: Exam was interpreted at [facility]. Left Ventricle: Normal left ventricular systolic function. [...] 06/23/2021 added in this encounter Care Teams Casino Cashier Manager Relationship Specialty Start Date End Date Yosi Whaley MD [address] [place] [address] PCP - General 07/14/19 02/03/23 Yosi Whaley MD [address] [place] [address] 07/14/19 02/03/23 documented as of this encounter
--- OUTSIDE RECORDS SUMMARY | 2024-06-28 17:12 | XMS_ITS | Encounter Summary ---
Author Organization [facility] Address [address] [place] [address] Phone Care Team Providers Care Human Services Supervisor Name Role Phone Elvis Lopez MD Primary Care Provider [phone] Catherine Todd MD Unavailable [phone] Reason for Referral * Diagnostic Imaging (Routine) - Closed Specialty Diagnoses / Procedures Referred By Contac t Referred To Contact Diagnoses Multiple myeloma not having achieved remission (CMS/HCC) (HCC) Procedures XR Osseous Survey Complete Catherine Todd MD [address] DIV IM BONE MARROW TRANSPLANT, [address] [address] Phone: tel: fax: [facility] [address] [place] [address] Referral ID Status Reason Start Date Expiration Date Visits Re quested Visits Authorized [id number] Closed 08/27/2023 09/25/2024 1 1 PROFILING MACHINE SET UP OPERATOR Reason for Visit * Reason Comments Follow-up Encounter Details Date Type Department Care Team (Late st Contact Info) Description 08/27/2023 1:00 PM TOOL PROFILING MACHINE SET UP OPERATOR Office Visit [facility] Bone Marrow Transplant [address] [place] [address] Catherine Todd MD [address] DIV IM BONE MARROW TRANSPLANT, [address] [place] [address] Multiple myeloma not having achieved remission (CMS/HCC) [...] on file Legal Sex Female 3:01 AM TOOL PROFILING MACHINE SET UP OPERATOR Gender Identity Female 06/07/2020 11:17 AM TOOL PROFILING MACHINE SET UP OPERATOR Sexual Orientation Straight 06/07/2020 11 :17 AM TOOL PROFILING MACHINE SET UP OPERATOR documented as of this encounter Last Filed Vital Signs Vital Sign Reading Time Taken Comments Blood Pressure 159/78 08/27/2023 12:40 PM TOOL PROFILING MACHINE SET UP OPERATOR Pulse 64 08/27/2023 12:40 PM TOOL PROFILING MACHINE SET UP OPERATOR Temperature 36.7 ??C (98 ??F) 08/27/2023 12: 40 PM TOOL PROFILING MACHINE SET UP OPERATOR Respiratory Rate 18 08/27/2023 12:4 0 PM TOOL PROFILING MACHINE SET UP OPERATOR Oxygen Saturation 97% 08/27/2023 12: 40 PM TOOL PROFILING MACHINE SET UP OPERATOR Inhaled Oxygen Concentration - - Weight 97.2 kg (214 lb 3.2 oz) 08/27/19 24 12:40 PM TOOL PROFILING MACHINE SET UP OPERATOR with shoes Height 172.7 cm (5' 8 ) 08/27/2023 12:4 0 PM TOOL PROFILING MACHINE SET UP OPERATOR Body Mass Index 32.57 08/27/2023 12:40 PM TOOL PROFILING MACHINE SET UP OPERATOR documented in this encounter Patient Instructions * Patient Instructions* Falguni Lomeli RN - 08/27/2023 1:00 PM TOOL PROFILING MACHINE SET UP OPERATOR For bone survey test- go to [address] (radiology) no apt needed. They are open [id number] [phone] PROFILING MACHINE SET UP OPERATOR documented in this encounter Progress Notes * [...] cell count was 4.9, platelet count was [id number]. Metabolic profile was unremarkable. IgG was 350, [...] was 13 g, and a platelet countof [id number]. A complete metabolic profile was unremarkable. LDH [...] on her blood work typically done at [facility] prior to her visit today. She [...] Ms Elise continues to have an elevated [place] FLC and no deterioration in her GFR. She had no bone marrow aspirate and biopsy since her diagnosis and we encouraged her to work with us to allow us to repeat her bone marrow [place] [facility] if necessary under sedation. Her is nearly blind and she cannot drive down to [place] in [facility]. We will work with her and her [place] of friends and social work to allow [...] Other (See comments) Sleeps all day Extendryl [Nvebwsiajguhtaun-Fz-Spkmvjjxsb] Other (See comments) Hard to awaken Seldane [...] tablet, , Disp: , Rfl: glucosam velasquez zei-fbjmckkxm-U-Mn [phone] mg capsule, , Disp: , Rfl: hydroCHLOROthiazide [...] Take by mouth, Disp: , Rfl: omega 2-ubp-ugf-fish oil (Fish OiL) 100-160-1,000 mg capsule, Take [...] M 40 - 230 mg/dL 21 <25 [place]/Lambda light chains free with ratio 0.26 - 1.65 25.11 [place] light chain, free 3.3 - 19.4 mg/L [...] M-Priyank Not Observed g/dL 0.2 (H) Free [place] Lt Chains,S 3.30 - 19.40 mg/L 90.7 (H) 145.00 ! [place] light chain, free 3.3 - 19.4 mg/L 138.3 (H) 121.8 (H) 121.0 (H) 151.0 (H) 178.3 (H) Lambda light chain, free 5.7 - 26.3 mg/L 7.8 6.6 6.6 8.1 7.1 Free Lambda LC, Quant 5.71 - 26.30 mg/L 6.98 [place]/Lambda Ratio,S 0.26 - 1.65 13.74 (H) 20.77 ! [place]/Lambda light chains free with ratio 0.26 - [...] 07/17/19 0000 Age: 78 Sex: Female MR#: [id number] Loc: RADIOLOGY REPORT Order #[id number] PET PET/CT Whole Body-OP Use Only Signed [...] 10:48 AM - Electronically signed by Sina Thomsaon M.D. Assessment/Plan 1) Monoclonal gammopathy of uncertain [...] not done, ALC - 1.7 done at [facility] on 12/11/22. 3) Acquired hypogammaglobulinemia: IgG, [...] any separately reportable services. Catherine Todd M.D., [facility] cheese production supervisor Section of BMT & Leukemia CC; Patient Care Team: Elvis Lopez MD as PCP - General (Family Medicine) Catherine Todd MD as Medical Oncologist/Sr. Operations Manager (Hematology) PROFILING MACHINE SET UP OPERATOR documented in this encounter Plan of Treatment Not on file documented as of this encounter Results * (ABNORMAL) Immune competence (12/03/2023 1:41 PM CDT) CD3 pct 72 60 - 88 % Comment:Testing performed by : [facility], [address] [facility] [place] [address] CD3 Absolute 1,160 661 - 1,963 cells/mcL [facility] Comment:Testing performed by : [facility], [address] [facility] [place]., [address] CD4 pct 58 31 - 64 % [facility] Comment:Testing performed by : [facility], [address] [place]., [address] CD4 Absolute 952 365 - 1,294 cells/mcL [facility] Comment:Testing performed by : [facility], 1 [facility], [address] CD8 pct 9(L) 12 - 40 % [facility] Comment:Testing performed by : [facility], 1 [facility], [address] CD8 Absolute 150(L) 187 - 781 cells/mcL [facility] Comment:Testing performed by : [facility], [address] [facility], [address] CD19 pct 16 6 - 25 % [facility] Comment:Testing performed by : [facility], 1 [facility], [address] CD19 Absolute 254 86 - 488 cells/mcL [facility] Comment:Testing performed by : [facility], 1 [facility], [address] [id number] pct 11 5 - 25 % [facility] Comment:Testing performed by : [facility], 1 [facility], [address] [id number] Absolute 174 76 - 467 cells/mcL [facility] Comment:Testing performed by : [facility], 1 [facility], [address] CD4/CD8 ratio 6.4(H) 0.9 - 4.4 [facility] Comment:Testing performed by : [facility], 1 [facility], [address] Blood 12/03/2023 1:41 PM CDT 12/03/2023 5:25 PM CDT us Catherine Todd MD LAB BLOOD ORDERABLES Final Result [facility] [address] [facility] Department [place] [address] * (ABNORMAL) Protein electrophoresis with reflex, serum (12/03/2023 1:41 PM CDT) Pathologist [facility] Protein, sr 6.8 6.2 - 8.2 g/dL Comment:Testing performed by : [facility], 1 [facility], [address] Albumin 4.4 3.2 - 5.0 g/dL [facility] Comment:Testing performed by : [facility], 1 [facility], [address] Alpha-1 globulin 0.3 0.2 - 0.4 g/dL [facility] Comment:Testing performed by : [facility], [address] [place] [address], [address] Alpha-2 globulin 0.9 0.5 - 1.0 g/dL [facility] Comment:Testing performed by : [facility], 1 [facility], [address] Beta-1 globulin 0.4 0.3 - 0.6 g/dL [facility] Comment:Testing performed by : [facility], [address] [place] [address], [address] Beta-2 globulin 0.3 0.2 - 0.6 g/dL [facility] Comment:Testing performed by : [facility], [address] [place] [address], [address] Gamma globulin 0.4(L) 0.5 - 1.7 g/dL [facility] Comment:Testing performed by : [facility], [address] [place] [address], [address] Rstr Pk Gamma 0.1(H) 0.0 - 0.0 g/dL [facility] Comment:Testing performed by : [facility], [address] [place] [address], [address] SPEP interp Please see comment [facility] Comment: Abnormal restricted peak in Gamma region Decreased gamma globulins Electrophoretic pattern appears similar to previous sample 08-28-23 See immunotyping for further information Reviewed and signed by Tyree Latham MD 12/05/2023 Testing performed by: [facility], [address] [place] [address], [address] Blood 12/03/2023 1:41 PM CDT 12/03/2023 5:25 PM CDT Catherine Todd MD LAB BLOOD ORDERABLES Final Result Performing Organization Address City/[facility] Co de Phone Number OLIV[address] [address] * Lactate dehydrogenase (LD) (12/03/2023 1:41 PM CDT) Pathologist [facility] Lactate dehydrogenase (LDH) 175 100 - 250 Units/L Comment:Testing performed by : [facility], [address] [place] [address]., [address] Blood 12/03/2023 1:41 PM CDT 12/03/2023 1:42 PM CDT Catherine Todd MD LAB BLOOD ORDERABLES Final Result Performing Organization Address [facility] de Phone Number [address] [address] * (ABNORMAL) Immunoglobulin free light chains (12/03/2023 1:41 PM CDT) [facility] [place]/Lambda ratio 28.44(H) 0.26 - 1.65 Comment:Testing performed by : [facility], [address] [place] [address]., [address] [place] free light chain 18.20(H) 0.33 - 1.94 mg/dL [facility] Comment: Interpretive Data The Felisa Ig [place] FLC assay procedure was used. Results from different manufacturers or methods may not be comparable. Serial testing should be performed using the same method. Testing performed by: [facility], [address] [facility] [place]., [address] Lambda free light chain 0.64 0.57 - 2.63 mg/dL [facility] Comment: Interpretive Data The Felisa Ig Lambda FLC assay procedure was used. Results from different manufacturers or methods may not be comparable. Serial testing should be performed using the same method. Testing performed by: [facility], [address] [place]., [address] Blood 12/03/2023 1:41 PM CDT 12/03/2023 5:25 PM CDT Catherine Todd MD LAB BLOOD ORDERABLES Final Result A[facility]IO [address] [email or web address] [address] * Immunotyping, serum (12/03/2023 1:41 PM CDT) Pathologist [facility] Immunosubtraction Please see comment Comment: FREE [place] LIGHT CHAIN PARAPROTEIN Reviewed and signed by Tyree Latham MD 12/05/2023 Testing performed by: [facility], 1 [facility], [address] Blood 12/03/2023 1:41 PM CDT 12/03/2023 5:25 PM CDT Catherine Todd MD LAB BLOOD ORDERABLES Final Result Performing Organization Address City/[facility]/ZIP Co de Phone Number [address] [email or web address] [address] * (ABNORMAL) IgM (12/03/2023 1:41 PM CDT) Pathologist [facility] Immunoglobulin M <25(L) 40 - 230 mg/dL Blood 12/03/2023 1:41 PM CDT 12/03/2023 4:45 PM CDT Catherine Todd MD LAB BLOOD ORDERABLES Final Result A[facility] [address] [email or web address] [address] * (ABNORMAL) IgG (12/03/2023 1:41 PM CDT) [facility] Immunoglobulin G 400(L) 700 - 1,600 mg/dL Blood 12/03/2023 1:41 PM CDT 12/03/2023 4:45 PM CDT Catherine Todd MD LAB BLOOD ORDERABLES Final Result Performing Organization Address City/[facility] Co de Phone Number [address] [address] * (ABNORMAL) IgA (12/03/2023 1:41 PM CDT) Immunoglobulin A 69(L) 70 - 400 mg/dL Blood 12/03/2023 1:41 PM CDT 12/03/2023 4:45 PM CDT Catherine Todd MD LAB BLOOD ORDERABLES Final Result Performing Organization Address [facility] de Phone Number [address] [address] * (ABNORMAL) Comprehensive metabolic panel (12/03/2023 1:41 PM CDT) Pathologist [facility] Sodium 134(L) 135 - 145 mmol/L Comment:Testing performed by : [address] [address] Potassium, pl 3.7 3.3 - 4.9 mmol/L [facility] Comment:Testing performed by : [address] [address] Chloride 95(L) 97 - 110 mmol/L [facility] Comment:Testing performed by : [address] [address] CO2 26 22 - 32 mmol/L [facility] Comment:Testing performed by : [address] [address] Anion gap 13 2 - 15 mmol/L [facility] Comment:Testing performed by : [address] [address] BUN 20 6 - 25 mg/dL [facility] Comment:Testing performed by : [address] [address] Creatinine 0.70 0.60 - 1.10 mg/dL [facility] Comment:Testing performed by : [address] [address] Glucose 163 70 - 199 mg/dL AURELIO [...] was last revised 2022. Testing performed by: [address] [address] Calcium 9.7 8.5 - 10.3 mg/dL [facility] Comment:Testing performed by : [address] [address] Bilirubin, total 0.3 0.1 - 1.2 mg/dL [facility] Comment:Testing performed by : [address] [address] Protein, pl 7.0 6.5 - 8.5 g/dL [facility] Comment:Testing performed by : [address] [address] Albumin 4.7 3.5 - 5.0 g/dL [facility] Comment:Testing performed by : [address] [address] Alk phos 71 40 - 130 Units/L [facility] Comment:Testing performed by : [address] [address] ALT 15 7 - 45 Units/L [facility] Comment:Testing performed by : [address] [address] AST 17 10 - 45 Units/L [facility] Comment:Testing performed by : [address] [address] Blood 12/03/2023 1:41 PM CDT 12/03/2023 1:42 PM CDT Catherine Todd MD LAB BLOOD ORDERABLES Final Result [facility] [address] [facility] Department [place] [address] * (ABNORMAL) CBC with auto differential (12/03/2023 1:41 PM CDT) Pathologist [facility] WBC 3.7(L) 3.8 - 9.9 K/cumm Comment:Testing performed by : [address] [address] Hgb 11.4(L) 11.9 - 15.5 g/dL [facility] Comment:Testing performed by : [address] [address] Hct 33.5(L) 35.6 - 45.5 % [facility]IO Comment:Testing performed by : [address] [address] Plt 229 150 - 400 K/cumm [facility] Comment:Testing performed by : [address] [address] MPV 9.8 9.1 - 12.3 fL [facility] Comment:Testing performed by : [address] [address] RBC 3.53(L) 3.90 - 5.20 M/cumm [facility] Comment:Testing performed by : [address] [address] MCV 94.9 81.3 - 96.4 fL [facility] Comment:Testing performed by : [address] [address] MCH 32.3 27.1 - 33.3 pg [facility] [place]O Comment:Testing performed by : [address] [address] MCHC 34.0 32.3 - 35.7 g/dL [facility]LIO DEL[place]ADILLO Comment:Testing performed by : [address] [address] RDW CV 15.6(H) 11.1 - 14.9 % A[facility]IO Comment:Testing performed by : [address] [address] RDW SD 54.4(H) 35.7 - 48.1 fL [facility] Comment:Testing performed by : [address] [address] NRBC abs 0.00 0.00 - 0.01 K/cumm [facility] Comment:Testing performed by : [address] [address] Blood 12/03/2023 1:41 PM CDT 12/03/2023 1:42 PM CDT Catherine Todd MD LAB BLOOD ORDERABLES Final Result Performing Organization Address City/[facility] Co de Phone Number [address] [place] [address] * (ABNORMAL) Beta 2 microglobulin, serum (12/03/2023 1:41 PM CDT) Beta 2 Microglobulin, Serum 3.50(H) 1.00 - 2.50 mg/L Comment: Interpretive Data The Felisa Beta-2 microglobulin assay procedure was used. Results from different manufacturers or methods may not be comparable. Serial testing should be performed using the same method. Testing performed by: [address] [address] Blood 12/03/2023 1:41 PM CDT 12/03/2023 4:07 PM CDT Catherine Todd MD LAB BLOOD ORDERABLES Final Result Performing Organization Address City/[facility] Co de Phone Number [address] [place] [address] * XR Osseous Survey Complete (08/27/2023 3:11 PM TOOL PROFILING MACHINE SET UP OPERATOR) Anatomical Region Laterality Modality Body N/A [...] AM T: ??08/29/2023 11:50 AM Report ID: [id number] Reading Location: ??[id number] Procedure Note Lawrence Mosqueda MD - 08/29/2023 [...] Lawrence Mosqueda M.D. MF: AISHA Report ID: [id number] Reading Location: [place] [address] Catherine Todd MD IMG XR PROCEDURES Final [...] 12/03/2023 documented in this encounter Care Teams Human Services Supervisor Relationship Specialty Start Date End Date Elvis Lopez MD [facility] [place] [address] PCP - General Family Medicine 02/04/23 Catherine Todd MD [address] DIV BONE MARROW TRANSPLANT, [address] [place] [address] Medical Oncologist/Sr. Operations Manager Hematology 08/27/23 documented as of this encounter
--- OUTSIDE RECORDS SUMMARY | 2024-06-28 17:12 | XMS_ITS | Encounter Summary ---
Author Organization [facility] Healthcare Address [address] [place] [address] Care Team Providers Care Porter Luggage Name Role Phone Elvis Lopez MD Primary Care Provider [phone] Catherine Todd MD Unavailable [phone] Encounter Details Date Type Department Care Team (Late st Contact Info) Description 12/03/2023 1:[address] [facility] Lab [address] [place] [id number] Multiple myeloma not having achieved remission (CMS/HCC) [...] on file Legal Sex Female 3:01 AM WELFARE ADVISER Gender Identity Female 06/07/2020 11:17 AM WELFARE ADVISER Sexual Orientation Straight 06/07/2020 11 :17 AM WELFARE ADVISER documented as of this encounter Plan of [...] Chains (FLC) New (12/03/2023 1:41 PM CDT) Birdseye/Lambda ratio BJH 32.42(H) 0.26 - 1.65 Comment: Interpretive Data The Binding Site FreeLite assay procedure was used. Results from different manufacturers or methods may not be comparable. Serial testing should be performed using the same methods and instrumentation. Current Interpretive Data was last revised on 2023. Testing performed by: [facility], [address] [place]., [address] Birdseye free light chain BJH 16.86(H) 0.33 - 1.94 mg/dL AURELIO Comment: Interpretive Data The Binding Site FreeLite assay procedure was used. Results from different manufacturers or methods may not be comparable. Serial testing should be performed using the same methods and instrumentation. Current Interpretive Data was last revised on 2023. Testing performed by: [facility], [address] [place]., [address] Lambda free light chain BJH 0.52(L) 0.57 - 2.63 mg/dL AURELIO Comment: Interpretive Data The Binding Site FreeLite assay procedure was used. Results from different manufacturers or methods may not be comparable. Serial testing should be performed using the same methods and instrumentation. Current Interpretive Data was last revised on 2023. Testing performed by: [facility], [address] [place]., [address] Blood 12/03/2023 1:41 PM CDT 12/03/2023 5:25 PM CDT us Catherine Todd MD LAB BLOOD ORDERABLES Final Result Performing Organization Address City/[facility] Co de Phone Number AURELIO [address] [facility] [employer] [place], [place] [id number] * eGFR (12/03/2023 1:41 PM CDT) eGFR [...] reviewed 2021. Testing performed by: [facility], [address] [place] [address], [place]., [address] Blood 12/03/2023 1:41 PM CDT 12/03/2023 1:42 PM CDT us Catherine Todd MD LAB BLOOD ORDERABLES Final Result Performing Organization Address City/[facility] Co de Phone Number AURELIO [address] [facility] [place] [address] * (ABNORMAL) Differential, auto (12/03/2023 1:41 PM CDT) Neutrophil abs 1.4(L) 1.5 - 6.5 K/cumm Comment:Testing performed by : [address] [address] Imm gran abs 0.0 0.0 - 0.1 K/cumm AURELIO Comment:Testing performed by : [address] [address] Lymphocyte abs 1.6 0.8 - 3.3 K/cumm AURELIO Comment:Testing performed by : [address] [address] Monocyte abs 0.5 0.2 - 0.8 K/cumm [facility] Comment:Testing performed by : [address] [address] Eosinophil abs 0.1 0.0 - 0.5 K/cumm [facility] Comment:Testing performed by : [address] [address] Basophil abs 0.0 0.0 - 0.1 K/cumm [facility] Comment:Testing performed by : [address] [address] Neutrophil pct 39.1 % [facility] Comment: Interpretive Data Percent cell count reference ranges are not reported, since discordance with absolute values may lead to misinterpretation of CBC data. Current Interpretive Data was last revised on 2017. Testing performed by: [address] [address] Imm gran pct 0.3 % [facility] Comment: Interpretive Data Percent cell count reference ranges are not reported, since discordance with absolute values may lead to misinterpretation of CBC data. Current Interpretive Data was last revised on 2017. Testing performed by: [address] [address] Lymphocyte pct 44.7 % CERNER Comment: Interpretive Data Percent cell count reference ranges are not reported, since discordance with absolute values may lead to misinterpretation of CBC data. Current Interpretive Data was last revised on 2017. Testing performed by: [address] [address] Monocyte pct 13.4 % [facility] Comment: Interpretive Data Percent cell count reference ranges are not reported, since discordance with absolute values may lead to misinterpretation of CBC data. Current Interpretive Data was last revised on 2017. Testing performed by: [address] [address] Eosinophil pct 2.2 % [facility] Comment: Interpretive Data Percent cell count reference ranges are not reported, since discordance with absolute values may lead to misinterpretation of CBC data. Current Interpretive Data was last revised on 2017. Testing performed by: [address] [address] Basophil pct 0.3 % [facility] Comment: Interpretive Data Percent cell count reference ranges are not reported, since discordance with absolute values may lead to misinterpretation of CBC data. Current Interpretive Data was last revised on 2017. Testing performed by: [address] [address] Blood 12/03/2023 1:41 PM CDT 12/03/2023 1:42 PM CDT Catherine Todd MD LAB BLOOD ORDERABLES Final Result AURELIO [address] [facility] Department [place] [address] * (ABNORMAL) Beta 2 microglobulin, serum (12/03/2023 1:41 PM CDT) Beta 2 Microglobulin, Serum 3.50(H) 1.00 - 2.50 mg/L Comment: Interpretive Data The Felisa Beta-2 microglobulin assay procedure was used. Results from different manufacturers or methods may not be comparable. Serial testing should be performed using the same method. Testing performed by: [address] [address] Blood 12/03/2023 1:41 PM CDT 12/03/2023 4:07 PM CDT us Catherine Todd MD LAB BLOOD ORDERABLES Final Result AURELIO [address] [facility] Department [place] [address] * (ABNORMAL) CBC with auto differential (12/03/2023 1:41 PM CDT) [facility] Signature WBC 3.7(L) 3.8 - 9.9 K/cumm Comment:Testing performed by : [address] [address] Hgb 11.4(L) 11.9 - 15.5 g/dL AURELIO Comment:Testing performed by : [address] [address] Hct 33.5(L) 35.6 - 45.5 % AURELIO Comment:Testing performed by : [address] [address] Plt 229 150 - 400 K/cumm AURELIO Comment:Testing performed by : [address] [address] MPV 9.8 9.1 - 12.3 fL AURELIO Comment:Testing performed by : [address] [address] RBC 3.53(L) 3.90 - 5.20 M/cumm AURELIO Comment:Testing performed by : [address] [address] MCV 94.9 81.3 - 96.4 fL AURELIO Comment:Testing performed by : [address] [address] MCH 32.3 27.1 - 33.3 pg AURELIO DELGADILLO Comment:Testing performed by : [address] [address] MCHC 34.0 32.3 - 35.7 g/dL AURELIO Comment:Testing performed by : [address] [address] RDW CV 15.6(H) 11.1 - 14.9 % AURELIO DELGADILLO Comment:Testing performed by : [address] [address] RDW SD 54.4(H) 35.7 - 48.1 fL AURELIO DELGADILLO Comment:Testing performed by : [address] [address] NRBC abs 0.00 0.00 - 0.01 K/cumm AURELIO DELGADILLO Comment:Testing performed by : [address] [address] Blood 12/03/2023 1:41 PM CDT 12/03/2023 1:42 PM CDT Catherine Todd MD LAB BLOOD ORDERABLES Final Result AURELIO [address] [facility] Department [place] [address] * (ABNORMAL) Comprehensive metabolic panel (12/03/2023 1:41 PM CDT) Sodium 134(L) 135 - 145 mmol/L Comment:Testing performed by : [address] [address] Potassium, pl 3.7 3.3 - 4.9 mmol/L AURELIO Comment:Testing performed by : [address] [address] Chloride 95(L) 97 - 110 mmol/L AURELIO Comment:Testing performed by : [address] [address] CO2 26 22 - 32 mmol/L AURELIO Comment:Testing performed by : [address] [address] Anion gap 13 2 - 15 mmol/L AURELIO Comment:Testing performed by : [address] [address] BUN 20 6 - 25 mg/dL AURELIO Comment:Testing performed by : [address] [address] Creatinine 0.70 0.60 - 1.10 mg/dL AURELIO DELGADILLO Comment:Testing performed by : [address] [address] Glucose 163 70 - 199 mg/dL AURELIO [...] was last revised 2022. Testing performed by: [address] [address] Calcium 9.7 8.5 - 10.3 mg/dL AURELIO Comment:Testing performed by : [address] [address] Bilirubin, total 0.3 0.1 - 1.2 mg/dL AURELIO Comment:Testing performed by : [address] [address] Protein, pl 7.0 6.5 - 8.5 g/dL ARUELIO Comment:Testing performed by : [address] [address] Albumin 4.7 3.5 - 5.0 g/dL AURELIO Comment:Testing performed by : [address] [address] Alk phos 71 40 - 130 Units/L AURELIO Comment:Testing performed by : [address] [address] ALT 15 7 - 45 Units/L AURELIO Comment:Testing performed by : [address] [address] AST 17 10 - 45 Units/L AURELIO Comment:Testing performed by : [address] [address] Blood 12/03/2023 1:41 PM CDT 12/03/2023 1:42 PM CDT us Catherine Todd MD LAB BLOOD ORDERABLES Final Result Performing Organization Address City/[facility]/ZIP Co de Phone Number AURELIO [address] [employer] [place] [address] * (ABNORMAL) IgA (12/03/2023 1:41 PM CDT) Immunoglobulin A 69(L) 70 - 400 mg/dL Blood 12/03/2023 1:41 PM CDT 12/03/2023 4:45 PM CDT us Catherine Todd MD LAB BLOOD ORDERABLES Final Result Performing Organization Address [facility] Co de Phone Number AURELIO [address] [employer] [place] [address] * (ABNORMAL) IgG (12/03/2023 1:41 PM CDT) Immunoglobulin G 400(L) 700 - 1,600 mg/dL Blood 12/03/2023 1:41 PM CDT 12/03/2023 4:45 PM CDT us Catherine Todd MD LAB BLOOD ORDERABLES Final Result Performing Organization Address [facility] Co de Phone Number AURELIO [address] [employer] [place] [address] * (ABNORMAL) IgM (12/03/2023 1:41 PM CDT) Immunoglobulin M <25(L) 40 - 230 mg/dL Blood 12/03/2023 1:41 PM CDT 12/03/2023 4:45 PM CDT us Catherine Todd MD LAB BLOOD ORDERABLES Final Result Performing Organization Address City/[facility]/ZIP Co de Phone Number OLIVIA[address] [employer] [place] [address] * Immunotyping, serum (12/03/2023 1:41 PM CDT) Pathologist [facility] Immunosubtraction Please see comment Comment: FREE KAPPA LIGHT CHAIN PARAPROTEIN Reviewed and signed by Tyree Latham MD 12/05/2023 Testing performed by: [facility], [address] [place]., [address] Blood 12/03/2023 1:41 PM CDT 12/03/2023 5:25 PM CDT Catherine Todd MD LAB BLOOD ORDERABLES Final Result AURELIO [address] [facility] Department [place] [address] * (ABNORMAL) Immunoglobulin free light chains (12/03/2023 1:41 PM CDT) [facility] Birdseye/Lambda ratio 28.44(H) 0.26 - 1.65 Comment:Testing performed by : [facility], [address] [place]., [address] Birdseye free light chain 18.20(H) 0.33 - 1.94 mg/dL AURELIO DELGADILLO Comment: Interpretive Data The Felisa Ig Birdseye FLC assay procedure was used. Results from different manufacturers or methods may not be comparable. Serial testing should be performed using the same method. Testing performed by: [facility], [address] [place]., [address] Lambda free light chain 0.64 0.57 - 2.63 mg/dL AURELIO Comment: Interpretive Data The Felisa Ig Lambda FLC assay procedure was used. Results from different manufacturers or methods may not be comparable. Serial testing should be performed using the same method. Testing performed by: [facility], [address] [place]., [address] Blood 12/03/2023 1:41 PM CDT 12/03/2023 5:25 PM CDT Catherine Todd MD LAB BLOOD ORDERABLES Final Result Performing Organization Address City/[facility] Co de Phone Number [address] [address] * Lactate dehydrogenase (LD) (12/03/2023 1:41 PM CDT) [facility] Lactate dehydrogenase (LDH) 175 100 - 250 Units/L Comment:Testing performed by : [facility], [address] [place] [address], [address] Blood 12/03/2023 1:41 PM CDT 12/03/2023 1:42 PM CDT Catherine Todd MD LAB BLOOD ORDERABLES Final Result Performing Organization Address [facility] Co de Phone Number [address] [address] * (ABNORMAL) Protein electrophoresis with reflex, serum (12/03/2023 1:41 PM CDT) [facility] Protein, sr 6.8 6.2 - 8.2 g/dL Comment:Testing performed by : [facility], [address] [place] [address], [place]., [address] Albumin 4.4 3.2 - 5.0 g/dL AURELIO Comment:Testing performed by : [facility], [address] [place] [address], [place]., [address] Alpha-1 globulin 0.3 0.2 - 0.4 g/dL AURELIO Comment:Testing performed by : [facility], [address] [place] [address], [place]., [address] Alpha-2 globulin 0.9 0.5 - 1.0 g/dL AURELIO Comment:Testing performed by : [facility], [address] [place] [address], [place]., [address] Beta-1 globulin 0.4 0.3 - 0.6 g/dL AURELIO Comment:Testing performed by : [facility], [address] [place]., [address] Beta-2 globulin 0.3 0.2 - 0.6 g/dL AURELIO DELGADILLO Comment:Testing performed by : [facility], [address] [facility], [address] Gamma globulin 0.4(L) 0.5 - 1.7 g/dL AURELIO DELGADILLO Comment:Testing performed by : [facility], [address] [facility], [address] Rstr Pk Gamma 0.1(H) 0.0 - 0.0 g/dL AURELIO DELGADILLO Comment:Testing performed by : [facility], [address] [facility], [address] SPEP interp Please see comment AURELIO DELGADILLO Comment: Abnormal restricted peak in Gamma region Decreased gamma globulins Electrophoretic pattern appears similar to previous sample 08-28-23 See immunotyping for further information Reviewed and signed by Tyree Latham MD 12/05/2023 Testing performed by: [facility], [address] [facility], [address] Blood 12/03/2023 1:41 PM CDT 12/03/2023 5:25 PM CDT us Catherine Todd MD LAB BLOOD ORDERABLES Final Result AURELIO [address] [facility] Department [place] [address] * (ABNORMAL) Immune competence (12/03/2023 1:41 PM CDT) CD3 pct 72 60 - 88 % Comment:Testing performed by : [facility], [address] [facility], [address] CD3 Absolute 1,160 661 - 1,963 cells/mcL AURELIO DELGADILLO Comment:Testing performed by : [facility], [address] [facility], [address] CD4 pct 58 31 - 64 % AURELIO DELGADILLO Comment:Testing performed by : [facility], [address] [facility], [address] CD4 Absolute 952 365 - 1,294 cells/mcL AURELIO Comment:Testing performed by : [facility], [address] [facility], [address] CD8 pct 9(L) 12 - 40 % AURELIO Comment:Testing performed by : [facility], [address] [facility], [address] CD8 Absolute 150(L) 187 - 781 cells/mcL AURELIO Comment:Testing performed by : [facility], [address] [facility], [address] CD19 pct 16 6 - 25 % AURELIO Comment:Testing performed by : [facility], [address] [facility], [address] CD19 Absolute 254 86 - 488 cells/mcL AURELIO Comment:Testing performed by : [facility], [address] [facility], [address] [id number] pct 11 5 - 25 % AURELIO Comment:Testing performed by : [facility], [address] [facility], [address] [id number] Absolute 174 76 - 467 cells/mcL [facility] Comment:Testing performed by : [facility], [address] [facility], [address] CD4/CD8 ratio 6.4(H) 0.9 - 4.4 AURELIO Comment:Testing performed by : [facility], [address] [facility], [address] Blood 12/03/2023 1:41 PM CDT 12/03/2023 5:25 PM CDT us Catherine Todd MD LAB BLOOD ORDERABLES Final Result AURELIO [address] Department [place] [address] documented in this encounter Visit Diagnoses Diagnosis Multiple myeloma not having achieved remission (CMS/HCC) (HCC) documented in this encounter Care Teams Porter Luggage Relationship Specialty Start Date End Date Elvis Lopez MD [facility] [place] [address] PCP - General Family Medicine 02/04/23 Catherine Todd MD [address] DIV IM BONE MARROW TRANSPLANT, [address] [place] [address] Medical Oncologist/Flat Surfacer Jewel Hematology 08/27/23 documented as of this encounter
--- OUTSIDE RECORDS SUMMARY | 2024-06-28 17:12 | XMS_ITS | Encounter Summary ---
Author Organization [facility] Healthcare Address [address] [place] [address] Care Team Providers Care Water Superintendent Name Role Phone Elvis Lopez MD Primary Care Provider [phone] Catherine Todd MD Unavailable [phone] Reason for Referral * Diagnostic Imaging (Routine) - Closed Specialty Diagnoses / Procedures Referred By Contac t Referred To Contact Diagnoses Multiple myeloma not having achieved remission (CMS/HCC) (HCC) Procedures XR Osseous Survey Complete Catherine Todd MD [address] DIV IM BONE MARROW TRANSPLANT, [address] [address] Phone: tel: fax: [address] [address] Referral ID Status Reason Start Date Expiration Date Visits Re quested Visits Authorized [id number] Closed 08/27/2023 09/25/2024 1 1 ROLOGIST Reason for Visit * Diagnostic Imaging (Routine) - Closed Specialty Diagnoses / Procedures Referred By Contac t Referred To Contact Diagnoses Multiple myeloma not having achieved remission (CMS/HCC) (HCC) Procedures XR Osseous Survey Complete Catherine Todd MD [address] DIV IM BONE MARROW TRANSPLANT, [address] [address] Phone: tel: fax: [address] [address] Referral ID Status Reason Start Date Expiration Date Visits Re quested Visits Authorized [id number] Closed 08/27/2023 09/25/2024 1 1 Encounter Details Date Type Department Care Team (Latest Contact Info) Description 08/27/2023 2:52 PM NEPHROLOGIST - 08/27/2023 11:59 PM NEPHROLOGIST Hospital Encounter [facility] MOB 1 DIAG IMG [address] [place], [place] [id number] Multiple myeloma not having achieved remission (CMS/HCC) [...] on file Legal Sex Female 3:01 AM NEPHROLOGIST Gender Identity Female 06/07/2020 11:17 AM NEPHROLOGIST Sexual Orientation Straight 06/07/2020 11 :17 AM NEPHROLOGIST documented as of this encounter Medications at [...] (NEURONTIN) 600 mg tablet 12/02/2020 glucosam velasquez bni-hjcrtrgxw-Q- [place] [id number] mg capsule hydroCHLOROthiaz angela (HYDRODIURIL) 25 mg [...] 08/18/2018 MULTIVITAMIN ORAL Take by mouth omega 6-nop-sbi-fish oil (Fish OiL) 100-160-1,000 mg capsule Take [...] Read Routine (OP Routine) 08/27/2023 3:11 PM NEPHROLOGIST Multiple myeloma not having achieved remission (CMS/HCC) (HCC) documented in this encounter Results * XR Osseous Survey Complete (08/27/2023 3:11 PM NEPHROLOGIST) Anatomical Region Laterality Modality Body N/A Computed [...] AM T: ??08/29/2023 11:50 AM Report ID: [id number] Reading Location: [id number] Procedure Note Lawrence Mosqueda MD - 08/29/2023 [...] Lawrence Mosqueda M.D. MF: [id number] Report ID: [id number] Reading Location: [place] [address] us Catherine Todd MD IMG XR PROCEDURES Final Res ult documented in this encounter Visit Diagnoses Diagnosis Multiple myeloma not having achieved remission (CMS/HCC) (HCC) documented in this encounter Care Teams Water Superintendent Relationship Specialty Start Date End Date Elvis Lopez MD [facility] [place] [address] PCP - General Family Medicine 02/04/23 Catherine Todd MD [address] DIV IM BONE MARROW TRANSPLANT, [address] [place] [address] Medical Oncologist/Yard Hand Hematology 08/27/23 documented as of this encounter
--- OUTSIDE RECORDS SUMMARY | 2024-06-28 17:12 | XMS_ITS | Encounter Summary ---
Author Organization [facility] Address [address] [place] [address] Phone Care Team Providers Care Mineral Surveying Technician Name Role Phone Yosi Whaley MD Primary Care Provider [phone] Yosi Whaley MD Unavailable Reason for Visit * Reason Comments Multiple Myeloma Follow-up Encounter Details Date Type Department Care Team (Late st Contact Info) Description 12/16/2021 11:00 AM CDT Office Visit [facility] Oncology [address] [place] [address] [address] [place] [address] Akbar Pittman Jr., MD [facility] [place] [address] Multiple myeloma not having achieved [...] file Legal Sex Female 3:01 AM BELL NECK HAMMERER Gender Identity Female 06/07/2020 11:17 AM BELL NECK HAMMERER Sexual Orientation Straight 06/07/2020 11 :17 AM BELL NECK HAMMERER documented as of this encounter Last Filed [...] cell count was 4.9, platelet count was 484432. Metabolic profile was unremarkable. IgG was 350, [...] was 13 g, and a platelet countof 306612. A complete metabolic profile was unremarkable. LDH [...] Multiple myeloma not having achieved remission (CMS/HCC) ([facility]) Expected: 12/07/2022, Expires: 12/16/2022 CBC with auto differential Lab Routine Multiple myeloma not having achieved remission (CMS/HCC) ([facility]) Expected: 12/07/2022, Expires: 12/16/2022 IgG Lab [...] reflect changes made after this encounter. omega 3-nzs-bya-fish oil (Fish OiL) 100-160-1,000 mg capsule Take by mouth glucosam velasquez mrb-oxjshumtw-R- [place] [phone] mg capsule 02/04/2023 metroNIDAZOLE 1 % gel with pump APPLY ONE PUMP TOPICALY TWICE DAILY 11/28/2021 08/27/2023 cholecalciferol (VITAMIN D-3) 50,000 unit capsule TAKE ONE CAPSULE BY MOUTH EVERY 2 WEEKS 11/18/2021 12/03/2023 added in this encounter Orders Appointment Requests Count Last Ordered Date Fi rst Ordered Date ONCBCN CLINIC APPOINTMENT REQUEST 2 023 12/16/2021 documented in this encounter Care Teams Mineral Surveying Technician Relationship Specialty Start Date End Date Yosi Whaley MD [address] [place] [id number] PCP - General 07/14/19 02/03/23 Yosi Whaley MD [address] [place] [id number] 07/14/19 02/03/23 documented as of this encounter
--- OUTSIDE RECORDS SUMMARY | 2024-06-28 17:12 | XMS_ITS | Encounter Summary ---
Author Organization [facility] Address [address] [place] [address] Phone Care Team Providers Care Bandoleer Packer Name Role Phone Elvis Lopez MD Primary Care Provider [phone] Catherine Todd MD Unavailable [phone] Encounter Details Date Type Department Care Team (Late st Contact Info) Description 08/27/2023 12:30 PM TRANSPORTATION INSPECTOR Lab [facility] Oncology [address] [place] [phone] Multiple myeloma not having achieved remission [...] on file Legal Sex Female 3:01 AM TRANSPORTATION INSPECTOR Gender Identity Female 06/07/2020 11:17 AM TRANSPORTATION INSPECTOR Sexual Orientation Straight 06/07/2020 11 :17 AM TRANSPORTATION INSPECTOR documented as of this encounter Plan of Treatment Not on file documented as of this encounter Visit Diagnoses Diagnosis Multiple myeloma not having achieved remission (CMS/HCC) (HCC) documented in this encounter Orders Appointment Requests Count Last Ordered Date Fi rst Ordered Date ONCBCN LAB APPOINTMENT 1 08/27/2023 documented in this encounter Care Teams Bandoleer Packer Relationship Specialty Start Date End Date Elvis Lopez MD [facility] [place] [address] PCP - General Family Medicine 02/04/23 Catherine Todd MD [address] DIV IM BONE MARROW TRANSPLANT, [address] [place] [address] Medical Oncologist/Manager Of Creative Services Hematology 08/27/23 documented as of this encounter
--- OUTSIDE RECORDS SUMMARY | 2024-06-28 17:12 | XMS_ITS | Encounter Summary ---
Author Organization [facility] Address [address] [place] [address] Phone Care Team Providers Care Sanitation Technician Name Role Phone Elvis Lopez MD Primary Care Provider [phone] Catherine Todd MD Unavailable [phone] Encounter Details Date Type Department Care Team (Late st Contact Info) Description 10/20/2023 Telephone [facility] Oncology [address] [facility] [address] [place] [address] Falguni Lomeli RN Social History Tobacco [...] on file Legal Sex Female 3:01 AM LACING PRESSER Gender Identity Female 06/07/2020 11:17 AM LACING PRESSER Sexual Orientation Straight 06/07/2020 11 :17 AM LACING PRESSER documented as of this encounter Miscellaneous Notes * Telephone Encounter - Falguni Lomeli RN - 10/21/2023 10:01 AM CDT Patient called back stating that that date and time works for her for the bone marrow biopsy. I will mail patient the instructions and let the [facility] team know. * Telephone Encounter - Falguni Lomeli RN - 10/20/2023 10:34 AM CDT Left VM for patient to see if she is able to get her bone marrow biopsy done at [facility] at [place] on 10/31 with arrival time of 1pm and procedure time of 2pm. I asked patient to call me back to discuss. documented in this encounter Plan of Treatment Not on file documented as of this encounter Visit Diagnoses Not on filedocumented in this encounter Care Teams Sanitation Technician Relationship Specialty Start Date End Date Elvis Lopez MD [address] [place] [address] [place] [address] PCP - General Family Medicine 02/04/23 Catherine Todd MD [address] IM BONE MARROW TRANSPLANT, [address] [place] [address] Medical Oncologist/Health Communications Specialist Hematology 08/27/23 documented as of this encounter
--- OUTSIDE RECORDS SUMMARY | 2024-06-28 17:12 | XMS_ITS | Encounter Summary ---
Author Organization [facility] Address [address] [place] [address] Care Team Providers Care Kinesiology Internship Name Role Phone Elvis Lopez MD Primary Care Provider [phone] Catherine Todd MD Unavailable [phone] Encounter Details Date Type Department Care Team (Late st Contact Info) Description 11/02/2023 Telephone 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 [place] [address] PCP - General Family Medicine 02/04/23 Catherine Todd MD [address] IM BONE MARROW TRANSPLANT, [address] [place] [address] Medical Oncologist/Airplane Dispatch Clerk Hematology 08/27/23 documented as of this encounter
--- OUTSIDE RECORDS SUMMARY | 2024-06-28 17:12 | XMS_ITS | Encounter Summary ---
Author Organization [facility] Address [address] [place] [address] Care Team Providers Care Plunger Shovel Operator Name Role Phone Elvis Lopez MD Primary Care Provider [phone] Catherine Todd MD Unavailable [phone] Encounter Details Date Type Department Care Team (Late st Contact Info) Description 10/29/2023 Telephone [facility] Radiology [address] [place] [address] Oly Lord RN Social History Tobacco Use [...] on file Legal Sex Female 3:01 AM PROOF CARRIER Gender Identity Female 06/07/2020 11:17 AM PROOF CARRIER Sexual Orientation Straight 06/07/2020 11 :17 AM PROOF CARRIER documented as of this encounter Miscellaneous Notes * Telephone Encounter - Oly Lord RN - 10/29/2023 10:37 AM CDT I spoke with Mrs Elise and pre procedure call completed Preprocedure Phone Call Procedure Time Verified: Yes (2:00 pm) Arrival Time Verified: Yes (1:00 pm to register in outpatient registration/admitting) Procedure Location Verified: Yes ([facility] ([address] [facility] [place] [address]); Entrance A; [address]) NPO Status Reinforced: Yes (NPO after 0600 on 11-01-23; take meds with small sips of water) Ride and Caregiver Arranged: Yes Is Patient on Blood Thinners?: (ASA 81 mg listed) documented in this encounter Plan of Treatment Not on file documented as of this encounter Visit Diagnoses Not on filedocumented in this encounter Care Teams Plunger Shovel Operator Relationship Specialty Start Date End Date Elvis Lopez MD [address] [facility] [place] [address] PCP - General Family Medicine 02/04/23 Catherine Todd MD [address] IM BONE MARROW TRANSPLANT, [address] [place] [address] Medical Oncologist/Consulting Solution Director Hematology 08/27/23 documented as of this encounter
--- OUTSIDE RECORDS SUMMARY | 2024-06-28 17:12 | XMS_ITS | Encounter Summary ---
Author Organization [facility] Address [address] [place] [address] Phone Care Team Providers Care Senior Manufacturing Test Engineer Name Role Phone Yosi Whaley MD Primary Care Provider [phone] Yosi Whaley MD Unavailable Reason for Referral * MRI/CAT/PET Scan (Routine) - Closed Specialty Diagnoses / Procedures Referred By Contac t Referred To Contact Radiology Diagnoses Multiple myeloma not having achieved remission (CMS/HCC) (HCC) Procedures PET/CT FDG Skull to Thigh Catherine Todd MD [address] IM BONE MARROW TRANSPLANT, [address] [place] [address] Phone: tel: fax: [facility] [address] [place] [address] Referral ID Status Reason Start Date Expiration Date Visits Re quested Visits Authorized [id number] Closed 12/25/2022 01/24/2024 1 1 Encounter Details Date Type Department Care Team (Late st Contact Info) Description 12/25/2022 3:00 PM CDT Office Visit [facility] Bone Marrow Transplant [address] [facility] [address] [place] [address] Catherine Todd MD [address] DIV IM BONE MARROW TRANSPLANT, [address] [place] [address] Multiple myeloma not having achieved remission (CMS/HCC) [...] on file Legal Sex Female 3:01 AM METAL PATTERNMAKER APPRENTICE Gender Identity Female 06/07/2020 11:17 AM METAL PATTERNMAKER APPRENTICE Sexual Orientation Straight 06/07/2020 11 :17 AM METAL PATTERNMAKER APPRENTICE documented as of this encounter Last Filed [...] see the order. They are open Wednesday-Wednesday [phone] documented in this encounter Progress Notes * [...] cell count was 4.9, platelet count was 276054. Metabolic profile was unremarkable. IgG was 350, [...] was 13 g, and a platelet countof 109074. A complete metabolic profile was unremarkable. LDH [...] FLCson her blood work typically done at [facility] [...] Other (See comments) Sleeps all day Extendryl [Wiwdogfarhsysoqu-En-Qqpcwekfgx] Other (See comments) Hard to awaken Seldane [...] tablet, , Disp: , Rfl: glucosam velasquez jax-pzlhmphql-G-Mn 058-711-11-3 mg capsule, , Disp: , Rfl: hydroCHLOROthiazide [...] Take by mouth, Disp: , Rfl: omega 1-puc-wss-fish oil (Fish OiL) 100-160-1,000 mg capsule, Take [...] , Disp: , Rfl: [DISCONTINUED] glucosam velasquez bik-nfsewbsgu-N-Mn 157-852-37-3 mg capsule, , Disp: , Rfl: [DISCONTINUED] [...] Immunoglobulin M 50 - 300 mg/dL 21 Waldo/Lambda light chains free with ratio 0.26 - 1.65 25.11 Waldo light chain, free 3.3 - 19.4 mg/L [...] M-Priyank Not Observed g/dL 0.2 (H) Free Waldo Lt Chains,S 3.30 - 19.40 mg/L 90.7 (H) 145.00 ! Waldo light chain, free 3.3 - 19.4 mg/L 138.3 (H) 121.8 (H) 121.0 (H) 151.0 (H) 178.3 (H) Lambda light chain, free 5.7 - 26.3 mg/L 7.8 6.6 6.6 8.1 7.1 Free Lambda LC, Quant 5.71 - 26.30 mg/L 6.98 Waldo/Lambda Ratio,S 0.26 - 1.65 13.74 (H) 20.77 ! Waldo/Lambda light chains free with ratio 0.26 - [...] 07/17/19 0000 Age: 78 Sex: Female MR#: [id number] Loc: RADIOLOGY REPORT Order #[id number] PET PET/CT Whole Body-OP Use Only Signed [...] separately reportable services. Catherine Todd M.D., FACP wood machine carver Section of BMT & Leukemia CC; Patient [...] AM T: ??01/11/2023 8:13 AM Report ID: [id number] Reading Location: ??[id number] Narrative 01/08/2023 2:57 PM CDT EXAM DESCRIPTION: [...] PM T: ??01/08/2023 2:57 PM Report ID: [id number] Reading Location: ??[id number] Procedure Note Gopi Alaniz MD - 01/08/2023 [...] Gopi Alaniz M.D. LB: AUDREY Report ID: [id number] Reading Location: [place] [address] Catherine Todd MD IM PET PROCEDURES Edited [...] 12/25/2022 documented in this encounter Care Teams Senior Manufacturing Test Engineer Relationship Specialty Start Date End Date Yosi Whaley MD [address] [place] [address] PCP - General 07/14/19 02/03/23 Yosi Whaley MD [address] [place] [address] 07/14/19 02/03/23 documented as of this encounter
--- OUTSIDE RECORDS SUMMARY | 2024-06-28 17:12 | XMS_ITS | Encounter Summary ---
Author Organization [facility] Address [address] [place] [address] Care Team Providers Care Draw Bench Operator Name Role Phone Elvis Lopez MD Primary Care Provider [phone] Catherine Todd MD Unavailable [phone] Reason for Referral * Diagnostic Imaging (Routine) - Closed Specialty Diagnoses / Procedures Referred By Contdusty t Referred To Contact Radiology Diagnoses MGUS (monoclonal gammopathy of unknown significance) Procedures IR Bone marrow biopsy and aspiration Catherine Todd MD [address] IM BONE MARROW TRANSPLANT, [address] [address] Phone: tel: fax: [address] [address] Referral ID Status Reason Start Date Expiration Date Visits Re quested Visits Authorized [id number] Closed 10/18/2023 11/16/2024 1 1 Reason for Visit * Diagnostic Imaging (Routine) - Closed Specialty Diagnoses / Procedures Referred By Contac t Referred To Contact Radiology Diagnoses MGUS (monoclonal gammopathy of unknown significance) Procedures IR Bone marrow biopsy and aspiration Catherine Todd MD [address] IM BONE MARROW TRANSPLANT, [address] [address] Phone: tel: fax: [address] [address] Referral ID Status Reason Start Date Expiration Date Visits Re quested Visits Authorized [id number] Closed 10/18/2023 11/16/2024 1 1 Encounter Details Date Type Department Care Team (Late st Contact Info) Description 11/01/2023 12:55 PM CDT - 11/01/2023 11:59 PM CDT Hospital Encounter [facility] Radiology [address] [place] [address] Sameer Mosqueda MD PhD [id number] [place] [address] Beltran Clifford MD [id number] [place] [address] MGUS (monoclonal gammopathy of unknown significance) Discharge [...] on file Legal Sex Female 3:01 AM PLANT GUARD Gender Identity Female 06/07/2020 11:17 AM PLANT GUARD Sexual Orientation Straight 06/07/2020 11 :17 AM PLANT GUARD documented as of this encounter Last Filed [...] Cobos PA - 11/01/2023 1:58 PM CDT [facility] Radiology Outpatient Discharge Instructions/Note Diagnosis: The encounter [...] Follow up care: [] Follow up with [facility] Radiology in 1 week with XRs on same day, prior to appointment. Nurse Coordinators will call to schedule the appointment. Please come to: [] 3rd Floor [facility] [] 10th floor [facility] [] [facility] [] [facility] To contact an NCK Radiology at [facility] or [facility] call [phone] Wednesday through Wednesday from 7:30am-4:30pm. After hours emergencies, please contact: [phone]. Questions: During regular office hours, call your referring physician. Special instructions: Please call [facility] Radiology for any procedure related questions or problems including: Extreme swelling or bruising at the site. Unusual drainage or bleeding from procedure site. Fever of 101.5 F for more than 24 hours. Procedure related pain. If vomiting occurs more than 3 times, contact the residential solar consultant automation test engineer at [phone] within 24 hours after surgery. Contact your [...] (NEURONTIN) 600 mg tablet 12/02/2020 glucosam velasquez xor-cswbdjmmm-M- [place] 598-878-51-3 mg capsule hydroCHLOROthiaz angela (HYDRODIURIL) 25 mg [...] 08/18/2018 MULTIVITAMIN ORAL Take by mouth omega 4-jcl-rod-fish oil (Fish OiL) 100-160-1,000 mg capsule Take [...] Other (See comments) Sleeps all day Extendryl [Drzsrlkjmrypfjti-Wl-Ujybzvdsvq] Other (See comments) Hard to awaken Seldane [...] Post Procedure Note Attending: Dr Sameer Mosqueda Saloon Keeper: Emily Benavides PAC Sedation/Anesthesia: Min Sedation Pre-Op/Pre-Procedure [...] been discussed with the patient and/or their electronics parts sales representative. All questions answered and they [...] was obtained. ??Prior to beginning the procedure, [place] Protocol was performed to confirm the patient's [...] was obtained. Prior to beginning the procedure, [place] Protocol was performed to confirm the patient's [...] Iliac Bone Yung ow Biopsy Narrative PATHOLOGY [facility] - 11/08/2023 10:13 AM CDT EPIC results best viewed via link to PDF [facility] [address] [facility] [place] [address] Note to Patients: This report may contain [...] : ??1940 (Age: 82) Address: ??[address] [facility], [place], [place] ??[address] Hospital #: ??[id number] Taken:11/01/2023 Received:11/01/2023 Reported: 11/08/2023 Patient Type: [facility] Ancillary ?? Service: Laboratory Location: Physician(s): ??Catherine Todd M.D. Diagnosis: Bone marrow, left posterior iliac crest, aspirate, clot section, and core biopsy: ? - Mildly hypercellular marrow with maturing trilineage hematopoiesis and involvement by plasma cell neoplasm ? - See comment [facility]/11/03/2023 13:26 By this signature, I attest that [...] tissue context. Immunostain for CD138 reveals that VA318-wiqpfsbt plasma cells co-expressing CD117 account for approximately 20% of the overall cellularity and exhibit kappa light chain restriction, as demonstrated by in situ hybridization studies for kappa and lambda light chains (approximate kappa to lambda ratio greater than 10 to 1). Immunostain for CD34 reveals that JM37-nthsymek blasts account for less than 5% of the overall cellularity.. Immunostain for E-cadherin highlights increased early erythroid elements. Immunostains for CD3 and CD20 reveal that scattered lymphocytes and lymphoid aggregates are composed of a mixture of CD3-positive T-cells and CA69-pxzbazoz B-cells, with T- cell predominance. Elissa Carpio [...] with myeloblasts. ??Blast-gated events include population of KR17-hdcoqedx ZT81-quqvdxly events, most consistent with hematogones. Monocyte-gated events [...] flow cytometry specimen was examined for internal quality assurance supervisor body purposes. Flow cytometry was performed using antibodies to the following cellular antigens: CD45, CD34, CD19, CD20, Fox, Lambda, CD10, CD5, CD200, CD38, CD2, CD3, [...] Ph.D.Report Electronically Reviewed and Signed Out By ??vEa Ruiz M.D., Ph.D. ??11/04/2023 12:09:42Elissa Carpio MD, PhD ?? The performance characteristics of some immunohistochemical stains, fluorescence in-situ hybridization tests and immunophenotyping by flow cytometry cited in this report (if any) were determined by the Surgical Pathology and Flow Cytometry Departments at [facility] as part of an ongoing vice president quality program and in compliance with federally mandated [...] Surgical Pathology and Flow Cytometry Departments of [facility]. ??It has not been cleared or approved by the U. S. Food and Drug Administration. IMAGES AND SCANNED DOCUMENTS, IF INCLUDED, ONLY VIEWABLE IN PDF VERSION OF REPORT Catherine Todd MD LAB PATHOLOGY ORDERABLES Fi nal Result PATHOLOGY [facility] IO 3rd Floor [place], [place] [phone] * Cytogenetics Specimen Tracking Bone marrow (11/01/2023 1:30 PM CDT) Pathologist [facility] Cytotenetics Tracking Order Received Bone marrow 11/01/2023 1:30 PM CDT 11/01/2023 4:11 PM CDT Narrative [facility] - 11/02/2023 8:39 AM CDT Please read the Cytogenetics Epic requisition for specimen collection requirements. Catherine Todd MD LAB BODY FLUIDS AND STOOLS ORDERABLES Final Result Performing Organization Address [facility]/ZIP Co de Phone Number [facility] Department [place] [address] * Flow Leukemia/Lymphoma Bone marrow (11/01/2023 1:30 PM CDT) Pathologist [facility] Magana Stain Test Completed Leukemia/Lymp vipul Result See separate Surgical Pathology report. [facility] Bone marrow 11/01/2023 1:30 PM CDT 11/01/2023 4:37 PM CDT Catherine Todd MD LAB PATHOLOGY ORDERABLES Fi nal Result Performing Organization Address [facility] Co de Phone Number [facility] Department [place] [address] * Cytogenetics Bone marrow (11/01/2023 1:11 PM CDT) Bone marrow (Bone Marrow Biopsy) 11/01/2023 1:11 PM CDT 11/01/2023 1:11 PM CDT Narrative [facility] DIAG[facility]STIC LAB - CYTOGENETICS - 11/04/2023 8:15 PM CDT EPIC results best viewed via link to PDF [facility] Department of Pathol [address] [place] [address] ? Patient Information ? Name: ??RIGOBERTO BELL ? Gender: ??F ? : ??1940 (Age: 82) ? Tissue: ??Bone Marrow w/ FISH ? Visit Information ? Hospital #: ? [id number] ? Facility: ? [facility] ? Service: ? [facility] ? Location: ? [facility] ? Patient Type: ? [facility]AMP ? Specimen Information: ? Culture #: ??[id number] ? Date Collected: ??11/01/2023 ? Date Accessioned: ??11/02/2023 ? Date Ordered: ??11/01/2023 ? Physician(s): ? Catherine Todd M.D. ? Processing: ? CD138+ sorted plasma cells Indication: ? MGUS Specimen Quality: ? Low cell count Insufficient cells: ??FISH: Limited MM panel No Metaphases - Chromosome Analysis CLINICAL REPORT FLUORESCENCE IN-SITU HYBRIDIZATION [FISH] Karyotype: N/A nuc rafat(FEXX9k9,IGHx4)[26/200]/(WNKI0u1,IGHx3)[25/200],(CCND1,IGH)x4[86/200]/(CCND1x 4,IGH x3)[48/200], (IGHx3,MAFx2)[45/200]/(IGHx4,MAFx2)[21/200],(TP53,D17Z1)x1[23/200]/(TP53x1,D17Z1 x2)[2 /200] Diagnosis: CHROMOSOME [...] as priority testing in accordance with the [facility] Cytogenomics Laboratory protocol. FISH analysis was performed with a panel of [employer] probes for MM and is interpreted [...] probe in the Clinical Genomics Laboratory at [facility]. 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 This value exceeds the normal range (up to 1%) established for this probe in the Clinical Genomics Laboratory at [facility]. 3) FISH evaluation for an IGH::CCND1 rearrangement was performed on nuclei with the LSI IGH::CCND1 Dual Color, Dual Fusion Translocation Probe ([employer] for CCND1 at 11q13 and IGH [...] probe in the Clinical Genomics Laboratory at [facility]. 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 This value exceeds the normal range (up to 1%) established for this probe in the Clinical Genomics Laboratory at [facility]. 5) FISH evaluation for an IGH::MAF rearrangement was performed on nuclei with the LSI IGH::MAF Dual Color, Dual Fusion Translocation Probe ([employer] for IGH at 14q32 and MAF [...] probe in the Clinical Genomics Laboratory at [facility]. 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 This value exceeds the normal range (up to 1%) established for this probe in the Clinical Genomics Laboratory at [facility]. 6) FISH evaluation for a TP53 deletion was performed on nuclei with the LSI TP53 Dual Color Probe ([employer] for TP53 at 17p13.1 and the control D17Z1 at 17p11.1-q11.1 and is interpreted as ABNORMAL. Two abnormal patterns were detected: a) One TP53 hybridization signal and one D17Z1 control hybridization signal were observed in 23/200 nuclei, which exceeds the normal range (up to 2%) established for this probe in the Clinical Genomics Laboratory at [facility]. b) One TP53 hybridization signal and two D17Z1 control hybridization signals were observed in 21 nuclei, which exceeds the normal range (up to 2.7%) established for this probe in the Clinical Genomics Laboratory at [facility]. PLEASE NOTE: Due to paucity of CD138+ sorted plasma cells only four of the six Multiple Myeloma FISH panel probes were analyzed. The CKS1B/CDKN2C and Y35H952/LAMP1 probe sets were not performed. The FISH findings must be interpreted within the context of the pathologic and clinical findings. Follow-up evaluation is recommended. This test was developed and its performance characteristics determined by [facility]. It has not been [...] MD LAB GENETIC TESTING Final R esult [facility] - CYTOGENETICS [address] [place] [address] documented in this encounter Visit Diagnoses Diagnosis [...] 11/01/2023 documented in this encounter Care Teams Draw Bench Operator Relationship Specialty Start Date End Date Elvis Lopez MD [facility] [place] [address] PCP - General Family Medicine 02/04/23 Catherine Todd MD [address] DIV IM BONE MARROW TRANSPLANT, [address] [place] [address] Medical Oncologist/Fibre Composite Technician Hematology 08/27/23 documented as of this encounter
--- OUTSIDE RECORDS SUMMARY | 2024-06-28 17:12 | XMS_ITS | Encounter Summary ---
Author Organization [facility] Address [address] [place] [address] Phone Care Team Providers Care Tile Grader Name Role Phone Elvis Lopez MD Primary Care Provider [phone] Catherine Todd MD Unavailable Encounter Details Date Type Department Care Team (Late st Contact Info) Description 11/12/2023 Telephone [facility] Oncology [address] [facility] [address] [place] [address] Catherine Todd MD [address] DIV IM BONE MARROW TRANSPLANT, [address] [place] [address] Social History Tobacco Use Types Packs/Day Years [...] on file Legal Sex Female 3:01 AM HAND BOX FOLDER Gender Identity Female 06/07/2020 11:17 AM HAND BOX FOLDER Sexual Orientation Straight 06/07/2020 11 :17 AM HAND BOX FOLDER documented as of this encounter Miscellaneous Notes [...] on filedocumented in this encounter Care Teams Tile Grader Relationship Specialty Start Date End Date Elvis Lopez MD [address] [place] [address] [place] [address] PCP - General Family Medicine 02/04/23 Catherine Todd MD [address] DIV IM BONE MARROW TRANSPLANT, [address] [place] [address] Medical Oncologist/Campus Chaplain Hematology 08/27/23 documented as of this encounter
--- OUTSIDE RECORDS SUMMARY | 2024-06-28 17:12 | XMS_ITS | Encounter Summary ---
Author Organization [facility] Healthcare Address [address] [place] [address] Care Team Providers Care Admeasurer Name Role Phone Yosi Whaley MD Primary Care Provider [phone] Yosi Whaley MD Unavailable Reason for Referral * MRI/CAT/PET Scan (Routine) - Closed Specialty Diagnoses / Procedures Referred By Sharlene uriarte Referred To Contact Radiology Diagnoses Multiple myeloma not having achieved remission (CMS/HCC) (HCC) Procedures PET/CT FDG Skull to Thigh Catherine Todd MD [address] DIV IM BONE MARROW TRANSPLANT, [address] [address] Phone: tel: fax: [address] [address] Referral ID Status Reason Start Date Expiration Date Visits Re quested Visits Authorized [id number] Closed 12/25/2022 01/24/2024 1 1 Reason for Visit * MRI/CAT/PET Scan (Routine) - Closed Specialty Diagnoses / Procedures Referred By Contdusty t Referred To Contact Radiology Diagnoses Multiple myeloma not having achieved remission (CMS/HCC) (HCC) Procedures PET/CT FDG Skull to Thigh Catherine Todd MD [address] DIV IM BONE MARROW TRANSPLANT, [address] [address] Phone: tel: fax: [address] [place] [address] Referral ID Status Reason Start Date Expiration Date Visits Re quested Visits Authorized [id number] Closed 12/25/2022 01/24/2024 1 1 Encounter Details Date Type Department Care Team (Latest Contact Info) Description 01/08/2023 12:41 PM CDT - 01/08/2023 11:59 PM CDT Hospital Encounter [facility] Medical Office Building [address] [address] Multiple myeloma not having achieved remission (CMS/HCC) [...] on file Legal Sex Female 3:01 AM BODY COVERER Gender Identity Female 06/07/2020 11:17 AM BODY COVERER Sexual Orientation Straight 06/07/2020 11 :17 AM BODY COVERER documented as of this encounter Medications at [...] (NEURONTIN) 600 mg tablet 12/02/2020 glucosam velasquez lxl-wcylyzezs-Z- Mn [id number] mg capsule hydroCHLOROthiaz angela (HYDRODIURIL) 25 mg [...] 08/18/2018 MULTIVITAMIN ORAL Take by mouth omega 2-tsf-nok-fish oil (Fish OiL) 100-160-1,000 mg capsule Take [...] ORAL) Take by mouth 4 glucosam velasquez lty-zfwdbtzcz-M- Mn 066-615-08-3 mg capsule 3 magnesium oxide 400 mg [...] AM T: ??01/11/2023 8:13 AM Report ID: [id number] Reading Location: ??[id number] Narrative 01/08/2023 2:57 PM CDT EXAM DESCRIPTION: [...] PM T: ??01/08/2023 2:57 PM Report ID: [id number] Reading Location: ??[id number] Procedure Note Gpoi Alaniz MD - 01/08/2023 EXAM DESCRIPTION: PET/CT [...] Gopi Alaniz M.D. LB: AUDREY Report ID: [id number] Reading Location: [id number] us Catherine Todd MD IMG PET PROCEDURES Edited R esult - Final * POCT glucose (01/08/2023 12:58 PM CDT) Glucose, POC 108 70 - 199 mg/dL AURELIO DELGADILLO Comment:Testing performed by : [facility], [address] [place] [address]., [id number] Blood 01/08/2023 12:5 8 PM CDT 01/08/2023 12:58 PM CDT us Akbar Pittman Jr., MD LAB POCT ORDERABLES - DEVICE Final Result AURELIO DELGADILLO [address] [facility] [place] [address] documented in this encounter Visit Diagnoses Diagnosis [...] 01/08/2023 documented in this encounter Care Teams Admeasurer Relationship Specialty Start Date End Date Yosi Whaley MD [address] [place] [address] PCP - General 07/14/19 02/03/23 Yosi Whaley MD [address] [place] [address] 07/14/19 02/03/23 documented as of this encounter
--- OUTSIDE RECORDS SUMMARY | 2024-06-28 17:12 | XMS_ITS | Encounter Summary ---
Author Organization [facility] Healthcare Address [address] [place] [address] Care Team Providers Care Care Management Specialist Name Role Phone Elvis Lopez MD Primary Care Provider [phone] Catherine Todd MD Unavailable [phone] Encounter Details Date Type Department Care Team (Late st Contact Info) Description 10/21/2023 Telephone [facility] Radiology [address] [place] [address] Oly Lord RN Social History Tobacco Use [...] on file Legal Sex Female 3:01 AM PUMP ERECTOR HELPER Gender Identity Female 06/07/2020 11:17 AM PUMP ERECTOR HELPER Sexual Orientation Straight 06/07/2020 11 :17 AM PUMP ERECTOR HELPER documented as of this encounter Miscellaneous [...] (Falguni Lomeli, FERNANDO) Date scheduled: 11-01-23 Location: [facility] ([address] [place] [address]; Entrance A) Registration time: 1:00 pm in outpatient registration/admitting (rt hand [facility]) Procedure time: 2:00 pm Instructed on NPO instructions: yes, NPO after 6:00 am on 11-01-23; ok to take any necessary meds with small sips of water Indicated bus driver (family/friend) required: yes Anticoagulant/Antiplatelet use: ASA 81 mg Lab work completed: 08-27-23 Signed/held orders 10-18-23 Insurance PA needed: Yes-to be obtained by referring office as per protocol documented in this encounter Plan of Treatment Not on file documented as of this encounter Visit Diagnoses Not on filedocumented in this encounter Care Teams Care Management Specialist Relationship Specialty Start Date End Date Elvis Lopez MD [facility] [place] [address] PCP - General Family Medicine 02/04/23 Catherine Todd MD [address] DIV IM BONE MARROW TRANSPLANT, [address] [place] [address] Medical Oncologist/Lamp Replacer Hematology 08/27/23 documented as of this encounter
--- OUTSIDE RECORDS SUMMARY | 2024-06-28 17:12 | XMS_ITS | Encounter Summary ---
Author Organization [facility] Address [address] [place] [address] Phone Care Team Providers Care Pump Runner Name Role Phone Yosi Whaley MD Primary Care Provider Yosi Whaley MD Unavailable Encounter Details Date Type Department Care Team (Late st Contact Info) Description 12/11/2022 Telephone [facility] Oncology [address] [facility] [address] [place] [phone] Falguni Lomeli RN Social History Tobacco Use [...] on file Legal Sex Female 3:01 AM NUCLEAR POWERPLANT MECHANIC HELPER Gender Identity Female 06/07/2020 11:17 AM NUCLEAR POWERPLANT MECHANIC HELPER Sexual Orientation Straight 06/07/2020 11 :17 AM NUCLEAR POWERPLANT MECHANIC HELPER documented as of this encounter Miscellaneous [...] WITH RATIO, SERUM (12/11/2022 8:52 AM CDT) [place] light chain, free 178.3(H) 3.3 - 19.4 mg/L [facility] Lambda light chain, free 7.1 5.7 - 26.3 mg/L [facility] [place]/Lambda light chains free with ratio 25.11(H) 0.26 - 1.65 [facility] Comment: Free kappa/lambda ratio in serum of [...] 8:52 AM CDT 12/11/2022 8:53 AM CDT [facility] - 12/18/2022 8:46 AM CDT FASTING:YES FASTING: YES us Catherine Todd MD LAB BLOOD ORDERABLES Final Result [facility] [address] [place] [address] * (ABNORMAL) Protein electrophoresis with reflex, serum (12/11/2022 8:52 AM CDT) Protein, sr 6.7 6.1 - 8.1 g/dL [facility] ALBUMIN 4.4 3.8 - 4.8 g/dL [facility] Alpha-1 Globulin 0.3 0.2 - 0.3 g/dL [facility] Alpha-2 Globuliin 0.9 0.5 - 0.9 g/dL [facility] Beta-1 globulin 0.4 0.4 - 0.6 g/dL [facility] Beta 2 globulin 0.3 0.2 - 0.5 g/dL [facility] Gamma globulin 0.5(L) 0.8 - 1.7 g/dL [facility] Abnormal protein band 0.2(H) NONE DETECTED g/dL [facility] SPE, interp [facility] Comment: Faint restricted band (M-spike) migrating in the gamma region. Consider serum immunofixation to rule out a monoclonal protein if clinically indicated. Blood 12/11/2022 8:52 AM CDT 12/11/2022 8:53 AM CDT Narrative [facility] - 12/18/2022 8:46 AM CDT FASTING:YES FASTING: YES Catherine Todd MD LAB BLOOD ORDERABLES Final Result Performing Organization Address [facility] Co de Phone Number [facility] [address] [place] [address] * (ABNORMAL) IgM (12/11/2022 8:52 AM CDT) Immunoglobulin M 21(L) 50 - 300 mg/dL [facility] Blood 12/11/2022 8:52 AM CDT 12/11/2022 8:53 AM CDT Narrative [facility] - 12/18/2022 8:46 AM CDT FASTING:YES FASTING: YES Catherine Todd MD LAB BLOOD ORDERABLES Final Result Performing Organization Address [facility] de Phone Number [facility] [address] [place] [address] * (ABNORMAL) IgA (12/11/2022 8:52 AM CDT) Immunoglobulin A 55(L) 70 - 320 mg/dL [facility] Blood 12/11/2022 8:52 AM CDT 12/11/2022 8:53 AM CDT Narrative [facility] - 12/18/2022 8:46 AM CDT FASTING:YES FASTING: YES Catherine Todd MD LAB BLOOD ORDERABLES Final Result Performing Organization Address [facility] de Phone Number [facility] [address] [place] [address] * (ABNORMAL) Beta 2 microglobulin, serum (12/11/2022 8:52 AM CDT) Beta 2 Microglobulin, Serum 3.94(H) < OR = 2.51 mg/L [facility] Blood 12/11/2022 8:52 AM CDT 12/11/2022 8:53 AM CDT Narrative [facility] - 12/18/2022 8:46 AM CDT FASTING:YES FASTING: YES Catherine Todd MD LAB BLOOD ORDERABLES Final Result Performing Organization Address [facility] de Phone Number [facility] [address] [place] [address] * (ABNORMAL) IgG (12/11/2022 8:52 AM CDT) Immunoglobulin G 369(L) 600 - 1,540 mg/dL [facility] Blood 12/11/2022 8:52 AM CDT 12/11/2022 8:53 AM CDT Narrative [facility] - 12/18/2022 8:46 AM CDT FASTING:YES FASTING: YES Catherine Todd MD LAB BLOOD ORDERABLES Final Result Performing Organization Address [facility] Phone Number [facility] [address] [place] [address] * (ABNORMAL) Comprehensive metabolic panel (12/11/2022 8:52 AM CDT) Glucose 100(H) 65 - 99 mg/dL [facility] Comment: ? Fasting reference interval For someone without known diabetes, a glucose value between 100 and 125 mg/dL is consistent with prediabetes and should be confirmed with a follow-up test. BUN 22 7 - 25 mg/dL [facility] Creatinine 0.94 0.60 - 0.95 mg/dL [facility] eGFR 61 > OR = 60 mL/min/1. 73m2 [facility] Comment: The eGFR is based on the CKD-EPI 2020 equation. To calculate the new eGFR from a previous Creatinine or Cystatin C result, go to https://www.kidney.org/professionals/ kdoqi/gfr%5Fcalculator BUN/creat ratio NOT APPLICABLE 6 - 22 (calc) [facility] Sodium 139 135 - 146 mmol/L [facility] Potassium, pl 4.0 3.5 - 5.3 mmol/L [facility] Chloride 99 98 - 110 mmol/L [facility] CO2 29 20 - 32 mmol/L [facility] Calcium 9.6 8.6 - 10.4 mg/dL [facility] Protein, sr 6.7 6.1 - 8.1 g/dL [facility] Albumin 4.7 3.6 - 5.1 g/dL [facility] GLOBULIN 2.0 1.9 - 3.7 g/dL (calc) [facility] Alb/glob ratio 2.4 1.0 - 2.5 (calc) [facility] Bilirubin, total 0.4 0.2 - 1.2 mg/dL [facility] Alk phos 68 37 - 153 U/L [facility] AST 17 10 - 35 U/L [facility] ALT (SGPT) 15 6 - 29 U/L [facility] Blood 12/11/2022 8:52 AM CDT 12/11/2022 8:53 AM CDT Narrative [facility] - 12/18/2022 8:46 AM CDT FASTING:YES FASTING: YES us Catherine Todd MD LAB BLOOD ORDERABLES Final Result [facility] [address] [place] [address] * (ABNORMAL) CBC with auto differential (12/11/2022 [...] LAB BLOOD ORDERABLES Final Result [facility] [address] [address] documented in this encounter Visit Diagnoses Diagnosis 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
--- OUTSIDE RECORDS SUMMARY | 2024-06-28 17:12 | XMS_ITS | Encounter Summary ---
Author Organization [facility] Address [address] [place] [address] Phone Care Team Providers Care Director Of Premium Seat Sales Name Role Phone Elvis Lopez MD Primary Care Provider Catherine Todd MD Unavailable [phone] Reason for Visit * Reason Comments Follow-up Encounter Details Date Type Department Care Team (Latest Contact Info) Description 12/03/2023 1:40 PM CDT Office Visit [facility] Bone Marrow Transplant [facility] [facility] [address] [place] [address] Catherine Todd MD [address] IM BONE MARROW TRANSPLANT, [address] [place], [place] [id number] Multiple myeloma not having achieved remission (CMS/HCC) [...] on file Legal Sex Female 3:01 AM X RAY EQUIPMENT TESTER Gender Identity Female 06/07/2020 11:17 AM X RAY EQUIPMENT TESTER Sexual Orientation Straight 06/07/2020 11 :17 AM X RAY EQUIPMENT TESTER documented as of this encounter Last [...] cell count was 4.9, platelet count was 142618. Metabolic profile was unremarkable. IgG was 350, [...] was 13 g, and a platelet countof 582414. A complete metabolic profile was unremarkable. LDH [...] on her blood work typically done at [facility] prior to her visit today. She has [...] Ms Elise continues to have an elevated Day FLC and no deterioration in her GFR. She had no bone marrow aspirate and biopsy since her diagnosis and we encouraged her to work with us to allow us to repeat her bone marrow in [facility] if necessary under sedation. Her is nearly blind and she cannot drive down to [place] in [facility]. 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 ABNORMAL FISH FINDINGS: MONOSOMY [...] she is unable to come weekly to [place] for treatment. Recent Phase 3 Trial evidence supports the use of an anti CD38 monoclonal antibody such as Isatuximab + VRd (Christen Banuelos et al: Isatuximab, Bortezomib, Lenalidomide, and Dexamethasone for Multiple Myeloma, [facility] November 22 2023, also presented at [facility] 2023). The results in older unfit myeloma patients who are not destined for autologous hematopoietic stem cell transplantation are impressive with PFS at 60 months = 63.2% as compared to VRd alone 45.2%. If her insurance compa fails to cover Isatuximab we can subtitute Daratumomab. We will monitor her Day Free Light chains to monitor response. Patient [...] Other (See comments) Sleeps all day Extendryl [Yscyxzagetrllodv-Pw-Wfflapqiii] Other (See comments) Hard to awaken Seldane [...] tablet, , Disp: , Rfl: glucosam velasquez lef-rnrgrxrxz-S-Mn 066-815-02-3 mg capsule, , Disp: , Rfl: hydroCHLOROthiazide [...] Take by mouth, Disp: , Rfl: omega 2-yzl-sun-fish oil (Fish OiL) 100-160-1,000 mg capsule, Take [...] M 40 - 230 mg/dL 21 <25 Day/Lambda light chains free with ratio 0.26 - 1.65 0.26 - 1.65 25.11 20.39 23.67 Day light chain, free 0.33 - 1.94 mg/dL [...] M-Priyank Not Observed g/dL 0.2 (H) Free Day Lt Chains,S 3.30 - 19.40 mg/L 90.7 (H) 145.00 ! Day light chain, free 3.3 - 19.4 mg/L 138.3 (H) 121.8 (H) 121.0 (H) 151.0 (H) 178.3 (H) Lambda light chain, free 5.7 - 26.3 mg/L 7.8 6.6 6.6 8.1 7.1 Free Lambda LC, Quant 5.71 - 26.30 mg/L 6.98 Day/Lambda Ratio,S 0.26 - 1.65 13.74 (H) 20.77 ! Day/Lambda light chains free with ratio 0.26 - [...] 07/17/19 0000 Age: 78 Sex: Female MR#: [id number] Loc: RADIOLOGY REPORT Order #[id number] PET PET/CT Whole Body-OP Use Only Signed [...] Monoclonal gammopathy of uncertain significance (MGUS) >> Day Light Chain Multiple Myeloma: this is a [...] not done, ALC - 1.7 done at [facility] on 12/11/22. 3) Acquired hypogammaglobulinemia: IgG, IgA [...] separately reportable services. Catherine Todd M.D., FACP air analysis technician Section of BMT & Leukemia CC; Patient Care Team: Elvis Lopez MD as PCP - General (Family Medicine) Catherine Todd MD as Medical Oncologist/Compensation And Benefits Manager (Hematology) documented in this encounter Plan of [...] 024 documented in this encounter Care Teams Director Of Premium Seat Sales Relationship Specialty Start Date End Date Elvis Lopez MD [address] [facility] [address] PCP - General Family Medicine 02/04/23 Catherine Todd MD [address] DIV IM BONE MARROW TRANSPLANT, [address] [place] [address] Medical Oncologist/Compensation And Benefits Manager Hematology 08/27/23 documented as of this encounter
--- OUTSIDE RECORDS SUMMARY | 2024-06-28 17:13 | XMS_ITS | Encounter Summary ---
Author Organization [facility] Medical Group Address [address] [place] [address] Care Team Providers Care Hose Operator Name Role Phone Yosi Whaley MD Primary Care Provider [phone] Yosi Whaley MD Unavailable Reason for Visit * Reason Comments New Patient eval for MV insuffic iency and PHT * Consultation (Routine) - Closed Specialty Diagnoses / Procedures Referred By Contdusty t Referred To Contact Cardiology Diagnoses Pulmonary hypertension (HCC) Nonrheumatic mitral (valve) insufficiency Yue Kowalski PA [address] [place] [address] Phone: tel: fax: [facility] Medical [facility] Cardiology [address] [facility] [address] [place] [address] Phone: tel: fax: Referral ID Status Reason Start Date Expiration Date V isits Requested Visits Authorized [id number] Closed Specialty Services Required 06/05/2020 07/05/2021 1 1 Encounter Details Date Type Department Care Team (Late st Contact Info) Description 06/07/2020 1:45 PM WARD MAID Office Visit [facility] Medical [facility] Cardiology [address] [facility] [address] [place] [phone] Syed Almonte MD [address] [place] [address] Mitral valve insufficiency, unspecified etiology (Primary Dx); [...] on file Legal Sex Female 3:01 AM WARD MAID Gender Identity Female 06/07/2020 11:17 AM WARD MAID Sexual Orientation Straight 06/07/2020 11 :17 AM WARD MAID documented as of this encounter Last Filed Vital Signs Vital Sign Reading Time Taken Comments Blood Pressure 106/64 06/07/2020 1:38 PM WARD MAID Pulse 86 06/07/2020 1:38 PM WARD MAID Temperature - - Respiratory Rate - - Oxygen Saturation 94% 06/07/2020 1:38 PM WARD MAID Inhaled Oxygen Concentration - - Weight 102.1 kg (225 lb) 06/07/2020 1:38 PM WARD MAID Height 172.7 cm (5' 8 ) 06/07/2020 1:38 PM WARD MAID Body Mass Index 34.21 06/07/2020 1:38 PM WARD MAID documented in this encounter Progress Notes * [...] 79 beats per minute poor R-wave progression TN interval 162 milliseconds QRS 96 milliseconds QT [...] recall medication. In August 2019 high free [place] LC, K/L ratio 20.77, B2 microglobulin, low [...] (FLONASE) 50 mcg/actuation nasal spray glucosam velasquez umc-wnveekeup-A-Mn 097-683-52-3 mg capsule hydroCHLOROthiazide (HYDRODIURIL) 25 mg tablet [...] (See comments) Sleeps all day ??? Extendryl [Uchzcymziuhxsznc-Yw-Xlfvkvthza] Other (See comments) Hard to awaken ??? [...] RATIO, SERUM Result Value Ref Range Free [place] LC, Quant 145.00 (A) 3.30 - 19.40 mg/L Free Lambda LC, Quant 6.98 5.71 - 26.30 mg/L Free [place]/Lambda Ratio 20.77 (A) 0.26 - 1.65 CBC [...] % 0.4 % Lymph % 32.9 % [place] % 10.6 % Eos % 2.7 % [...] medical record, and bloodwork/lipids. Jeniffer Almonte MD, [facility] This note is dictated and transcribed using [employer] Direct Software. Painter Interior Finish variancesmay occur. Despite proofreading, typographical errors may occur. MAID documented in this encounter Miscellaneous Notes * Addendum Note - Ella Sanchez MA - 06/07/2020 1:45 PM CSTAddended by: ELLA SANCHEZ on: 06/07/2020 05:24 PM Modules accepted: Orders MAID documented in this encounter Plan of Treatment [...] 06/07/2020 documented in this encounter Care Teams Hose Operator Relationship Specialty Start Date End Date Yosi Whaley MD [address] [place] [address] PCP - General 07/14/19 02/03/23 Yosi Whaley MD [address] [place] [address] 07/14/19 02/03/23 documented as of this encounter
--- OUTSIDE RECORDS SUMMARY | 2024-06-28 17:13 | XMS_ITS | Encounter Summary ---
Author Organization [facility] Address [address] [place] [address] Phone Care Team Providers Care Productivity Engineer Name Role Phone Yosi Whaley MD Primary Care Provider Encounter Details Date Type Department Care Team (Late st Contact Info) Description 07/04/2019 Telephone [facility] [address] [place] [address] [place] [phone] Akbar Pittman Jr., MD [address] [place] [address] Social History Tobacco Use Types Packs/Day Years [...] on file Legal Sex Female 3:01 AM MATERIAL SCHEDULER Gender Identity Female 06/07/2020 11:17 AM MATERIAL SCHEDULER Sexual Orientation Straight 06/07/2020 11 :17 AM MATERIAL SCHEDULER documented as of this encounter Miscellaneous Notes * Telephone Encounter - Jennifer Ceja RN - 07/06/2019 11:48 AM MATERIAL SCHEDULER Message left for Dr. Whaley's medical technologist prn and advised that patient has appointment on 07-[address] Pittman will let him know after evaluation. RIAL SCHEDULER * Telephone Encounter - Jennifer Ceja RN - 07/04/2019 4:29 PM CST Please see phone note and advise. Denae Nava RIAL SCHEDULER * Telephone Encounter - Iraida Christianson MA - 07/04/2019 12:26 PM CST Saige with Dr. Whaley's office called wanting to know if thought a bone marrow biopsy would be appropriate for patient for consideration of Multiple myeloma dx. Dr. Whaley to order if so.Patient has follow up appt on 07/10/19 with . Please advise. RIAL SCHEDULER documented in this encounter Plan of Treatment Not on file documented as of this encounter Visit Diagnoses Not on filedocumented in this encounter Care Teams Productivity Engineer Relationship Specialty Start Date End Date Yosi Whaley MD [address] [place] [address] PCP - General 03/08/13 07/13/19 documented as of this encounter
--- OUTSIDE RECORDS SUMMARY | 2024-06-28 17:13 | XMS_ITS | Encounter Summary ---
Author Organization [facility] Healthcare Address [address] [place] [address] Care Team Providers Care Hospice Care Consultant Name Role Phone Yosi Whaley MD Primary Care Provider [phone] Yosi Whaley MD Unavailable Encounter Details Date Type Department Care Team (Late st Contact Info) Description 07/17/2019 12:51 PM GREY STOCK RECORDER Hospital Encounter MHE OP INTERIM Akbar Pittman Jr., MD [facility]0 [facility] [place] [address] Social History Tobacco Use Types Packs/Day Years Used Date Smoking Tobacco: Never Assessed AUDIT-C Answer Date Recorded Frequency of Alcohol Consumption Never 08/29/2018 Average Number of Drinks Not on file 019 Frequency of Binge Drinking Not on file 08/19 Comments Unknown Sex and Gender Information Value Date Recorded Sex Assigned at Not on file Legal Sex Female 3:01 AM GREY STOCK RECORDER Gender Identity Female 06/07/2020 11:17 AM GREY STOCK RECORDER Sexual Orientation Straight 06/07/2020 11 :17 AM GREY STOCK RECORDER documented as of this encounter Medications at Time of Discharge ezetimibe (ZETIA) 10 mg tablet TK 1 T PO QD 3 02/27/2019 fluticasone (FLONASE) 50 mcg/actuation nasal spray glucosam velasquez uex-igforrdeb-S- [place] [id number] mg capsule hydroCHLOROthiaz angela (HYDRODIURIL) 25 mg [...] PET/CT TUMOR WHOLE BODY 07/17/2019 12:00 AM GREY STOCK RECORDER documented in this encounter Results * PET/CT TUMOR WHOLE BODY (07/17/2019 12:00 AM GREY STOCK RECORDER) Anatomical Region Laterality Modality N/A Positron Emissio n Tomography (PET) 07/18/2019 10:2 1 AM GREY STOCK RECORDER Narrative 07/18/2019 10:48 AM GREY STOCK RECORDER Patient Name: RIGOBERTO ELISE ?Ordering Dr: Akbar Pittman Jr, MD ?? D.O.B: 1940 ? Exam Date: 07/17/19 ?? 0000 ?? Age: 78 ?Sex: Female ? MR#: [id number] ?? Loc: ? RADIOLOGY REPORT ?? Order #[id number] ?? PET ? PET/CT Whole Body-OP Use [...] T: ??07/18/2019 10:33 AM ? Report ID: [id number] ?? Reading Location: ??[id number] ? REPORT ELECTRONICALLY SIGNED IN OTHER VENDOR SYSTEM ?? Resulting Agency Comment O Procedure Note Sina Thomason Jr., MD - 07/18/2019 Patient Name: RIGOBERTO ELISE Dr: Akbar Pittman Jr, MD D.O.B: 1940 Exam Date: 07/17/19 0000 Age: 78 Sex: Female MR#: [id number] Loc: RADIOLOGY REPORT Order #[id number] PET PET/CT Whole Body-OP Use Only Signed [...] by Sina Thomason M.D. CH: Report ID: [id number] Reading Location: [place] [address] REPORT ELECTRONICALLY SIGNED IN OTHER VENDOR SYSTEM Akbar Pittman Jr., MD IMG PET PROCEDURES F inal Result documented in this encounter Visit Diagnoses Not on filedocumented in this encounter Care Teams Hospice Care Consultant Relationship Specialty Start Date End Date Yosi Whaley MD [address] [place] [address] PCP - General 07/14/19 02/03/23 Yosi Whaley MD [address] [place] [address] 07/14/19 02/03/23 documented as of this encounter
--- OUTSIDE RECORDS SUMMARY | 2024-06-28 17:13 | XMS_ITS | Encounter Summary ---
Author Organization [facility] Address [address] [place] [address] Phone Care Team Providers Care Audit Director Name Role Phone Yosi Whaley MD Primary Care Provider [phone] Yosi Whaley MD Unavailable Encounter Details Date Type Department Care Team (Late st Contact Info) Description 11/12/2020 Telephone [facility] Oncology [address] [place] [address] Akbar Pittman Jr., MD [facility] [place] [address] Social History Tobacco Use Types [...] on file Legal Sex Female 3:01 AM PLASTERER ROUGH Gender Identity Female 06/07/2020 11:17 AM PLASTERER ROUGH Sexual Orientation Straight 06/07/2020 11 :17 AM PLASTERER ROUGH documented as of this encounter Miscellaneous Notes * Telephone Encounter - Venessa Hernandez RN - 11/14/2020 1:39 PM CDT Please schedule pt for the 3rd week of November I put in appt request and I will put in orders for labsto be done at [facility] prior to appt, Thanks * Telephone [...] on filedocumented in this encounter Care Teams Audit Director Relationship Specialty Start Date End Date Yosi Whaley MD [address] [place] [address] PCP - General 07/14/19 02/03/23 Yosi Whaley MD [address] [place] [address] 07/14/19 02/03/23 documented as of this encounter
--- OUTSIDE RECORDS SUMMARY | 2024-06-28 17:13 | XMS_ITS | Encounter Summary ---
Author Organization [facility] Address [address] [place] [address] Phone Care Team Providers Care Human Resources Manager Name Role Phone Yosi Whaley MD Primary Care Provider [phone] Reason for Visit * Reason Comments Follow-up Multiple Myeloma * Consultation (Routine) - Closed Specialty Diagnoses / Procedures Referred By Sharlene t Referred To Contact Oncology Diagnoses Multiple myeloma, remission status unspecified (HCC) No, Physician Phone: tel: [facility] Oncology [address] 7[address] [place] [address] [place] [address] Phone: tel: fax: Referral ID Status Reason Start Date Expiration Date V isits Requested Visits Authorized [id number] Closed Specialty Services Required 08/19/2018 06/20/2024 99 99 Encounter Details Date Type Department Care Team (Late st Contact Info) Description 12/05/2018 10:15 AM CDT Office Visit [facility] Oncology [address] [place] [address] [place] [address] Akbar Pittman Jr., MD [address] [place] [address] Multiple myeloma not having achieved remission (CMS/HCC) [...] file Legal Sex Female 3:01 AM PLASTIC PARTS DESIGNER Gender Identity Female 06/07/2020 11:17 AM PLASTIC PARTS DESIGNER Sexual Orientation Straight 06/07/2020 11 :17 AM PLASTIC PARTS DESIGNER documented as of this encounter Last Filed [...] was 13 g, and a platelet countof 914113. A complete metabolic profile was unremarkable. LDH [...] ?Site ID: [place] ?Name: Lexi Kwok ?Address: [facility] [place] [address] ?Director: Galileo Odom D.O., MPH us Akbar Pittman Jr., MD LAB BLOOD ORDERABLES Final Result Performing Organization Address City/[facility]/ZIP Co de Phone Number [place] * (ABNORMAL) IgG (02/27/2019 9:42 AM CDT) Immunoglobulin G 350(L) 600 - 1,540 mg/dL L[facility]I ROBERTS Blood specimen (specimen) 02/27/2019 9:42 AM CDT 02/27/2019 9:44 AM CDT Narrative Resulting Agency Comment Performing Organization Information: ?Site ID: [place] ?Name: Lexi Kwok ?Address: [facility] [place] [address] ?Director: Galileo Odom D.O., MPH us Akbar Pittman Jr., MD LAB BLOOD ORDERABLES Final Result Performing Organization Address [facility] Co de Phone Number [place] * (ABNORMAL) IMMUNOGLOBULIN M (02/27/2019 9:42 AM CDT) Immunoglobulin M 25(L) 50 - 300 mg/dL [facility] ROBERTS Blood specimen (specimen) 02/27/2019 9:42 AM CDT 02/27/2019 9:44 AM CDT Narrative Resulting Agency Comment Performing Organization Information: ?Site ID: [place] ?Name: Lexi Kwok ?Address: [facility] [place] [address] ?Director: Galileo Odom D.O. MPH us Akbar Pittman Jr., MD LAB BLOOD ORDERABLES Final Result Performing Organization Address [facility]/ZIP Co de Phone Number [facility] [place] * (ABNORMAL) Beta 2 microglobulin, serum (02/27/2019 9:42 AM CDT) Beta 2 Microglobulin, Serum 2.95(H) < OR = 2.51 mg/L [facility] [place] Blood specimen (specimen) 02/27/2019 9:42 AM CDT 02/27/2019 9:44 AM CDT Narrative Resulting Agency Comment Performing Organization Information: ?Site ID: [place] ?Name: Pong[facility] ?Address: [facility] [place] [address] ?Director: Galileo Odom D.O., MPH Akbar Pittman Jr., MD LAB BLOOD ORDERABLES Final Result Performing Organization Address [facility] de Phone Number [facility] - [place] * (ABNORMAL) KAPPA/LAMBDA LIGHT CHAINS FREE WITH RATIO, SERUM (02/27/2019 9:42 AM CDT) [place] light chain, free 138.3(H) 3.3 - 19.4 mg/L [facility] [place] Lambda light chain, free 7.8 5.7 - 26.3 mg/L [facility] [place]/Lambda light chains free with ratio 17.73(H) 0.26 [...] Agency Comment Performing Organization Information: ?Site ID: [place] ?Name: PongrAbrahan ?Address: [address] [place] [address] ?Director: Galileo Odom D.O., MPH us Akbar Pittman Jr., MD LAB BLOOD ORDERABLES Final Result [facility] [place] * (ABNORMAL) Comprehensive metabolic panel (02/27/2019 9:42 AM CDT) Glucose 104(H) 65 - 99 mg/dL [facility] [place] Comment: ? Fasting reference interval For someone without known diabetes, a glucose value between 100 and 125 mg/dL is consistent with prediabetes and should be confirmed with a follow-up test. BUN 20 7 - 25 mg/dL [facility] [place] Creatinine 0.90 0.60 - 0.93 mg/dL [facility] [place] Comment: For patients >49 years of age, the reference limit for Creatinine is approximately 13% higher for people identified as -Chilean. eGFR NON-AFR. BURUNDIAN 61 > OR = 60 mL/min/1 .73m2 [...] Agency Comment Performing Organization Information: ?Site ID: [place] ?Name: [facility] ?Address: [address] [place], [place] [address] [address] ?Director: Galileo Odom D.O., MPH us Akbar [...] Agency Comment Performing Organization Information: ?Site ID: [place] ?Name: PongrAbrahan ?Address: [address] [place] [address] ?Director: Galileo Odom D.O., MPH Akbar Pittman [...] 12/05/2018 documented in this encounter Care Teams Human Resources Manager Relationship Specialty Start Date End Date Yosi Whaley MD [address] [place] [address] PCP - General 03/08/13 07/13/19 documented as of this encounter
--- OUTSIDE RECORDS SUMMARY | 2024-06-28 17:13 | XMS_ITS | Encounter Summary ---
Author Organization [facility] Facility Care Team Providers Care Mimeograph Operator Name Role Phone Yosi Whaley MD Primary Care Provider [phone] Yosi Whaley MD Unavailable Encounter Details Date [...] on file Legal Sex Female 3:01 AM MECHANIC FOREMAN Gender Identity Female 06/07/2020 11:17 AM MECHANIC FOREMAN Sexual Orientation Straight 06/07/2020 11 :17 AM MECHANIC FOREMAN COVID-19 Exposure Response Date Recorded In the last month, have you been in contact with someone who was confirmed or suspected to have Coronavirus / COVID-19? No / Unsure 09/11/2019 10:05 AM CDT documented as of this encounter Plan of Treatment Not on file documented as of this encounter Visit Diagnoses Not on filedocumented in this encounter Care Teams Mimeograph Operator Relationship Specialty Start Date End Date Yosi Whaley MD [address] [place] [address] PCP - General 07/14/19 02/03/23 Yosi Whaley MD [address] [place] [address] 07/14/19 02/03/23 documented as of this encounter
--- OUTSIDE RECORDS SUMMARY | 2024-06-28 17:13 | XMS_ITS | Encounter Summary ---
Author Organization [facility] Address [address] [place] [address] Phone Care Team Providers Care Wwe Wrestler Name Role Phone Yosi Whaley MD Primary Care Provider [phone] Encounter Details Date Type Department Care Team [...] on file Legal Sex Female 3:01 AM MASTER HEARTH TECHNICIAN Gender Identity Female 06/07/2020 11:17 AM MASTER HEARTH TECHNICIAN Sexual Orientation Straight 06/07/2020 11 :17 AM MASTER HEARTH TECHNICIAN documented as of this encounter Plan [...] on filedocumented in this encounter Care Teams Wwe Wrestler Relationship Specialty Start Date End Date Yosi Whaley MD [address] [place] [address] PCP - General 03/08/13 07/13/19 documented as of this encounter
--- OUTSIDE RECORDS SUMMARY | 2024-06-28 17:13 | XMS_ITS | Encounter Summary ---
Author Organization [facility] Address [address] [place] [address] Care Team Providers Care Summer Nanny Name Role Phone Yosi Whaley MD Primary Care Provider [phone] Yosi Whaley MD Unavailable Encounter Details Date Type Department Care Team (Late st Contact Info) Description 06/05/2020 Orders Only [facility] Cardiology [address] [place] [address] Provider, MD Sanjay [address] [place], [place] [id number] Social History Tobacco Use Types Packs/Day Years [...] on file Legal Sex Female 3:01 AM TRAIN BRAKEMAN Gender Identity Female 06/07/2020 11:17 AM TRAIN BRAKEMAN Sexual Orientation Straight 06/07/2020 11 :17 AM TRAIN BRAKEMAN documented as of this encounter Plan of [...] on filedocumented in this encounter Care Teams Summer Nanny Relationship Specialty Start Date End Date Yosi Whaley MD [address] [place] [address] PCP - General 07/14/19 02/03/23 Yosi Whaley MD [address] [place] [address] 07/14/19 02/03/23 documented as of this encounter
--- OUTSIDE RECORDS SUMMARY | 2024-06-28 17:13 | XMS_ITS | Encounter Summary ---
Author Organization [facility] Address [address] [place] [address] Phone Care Team Providers Care Search Engine Optimization Consultant Name Role Phone Yosi Whaley MD Primary Care Provider [phone] Yosi Whaley MD Unavailable Encounter Details Date Type Department Care Team (Late st Contact Info) Description 09/11/2019 10:15 AM CDT Lab [facility] Oncology [facility] [address] Multiple myeloma not having achieved [...] on file Legal Sex Female 3:01 AM ROBOTICS APPLICATION ENGINEER Gender Identity Female 06/07/2020 11:17 AM ROBOTICS APPLICATION ENGINEER Sexual Orientation Straight 06/07/2020 11 :17 AM ROBOTICS APPLICATION ENGINEER COVID-19 Exposure Response Date Recorded In the [...] 09/11/2019 documented in this encounter Care Teams Search Engine Optimization Consultant Relationship Specialty Start Date End Date Yosi Whaley MD [address] [place] [address] PCP - General 07/14/19 02/03/23 Yosi Whaley MD [address] [place] [address] 07/14/19 02/03/23 documented as of this encounter
--- OUTSIDE RECORDS SUMMARY | 2024-06-28 17:13 | XMS_ITS | Encounter Summary ---
Author Organization [facility] Address [address] [place] [address] Care Team Providers Care Fire Suppression Captain Name Role Phone Yosi Whaley MD Primary Care Provider [phone] Reason for Visit * Diagnostic Imaging (Routine) - Closed Specialty Diagnoses / Procedures Referred By Contac t Referred To Contact Cardiology Imaging Diagnoses Left arm pain Procedures NM MPI SPECT (Rest and/or Stress) Multiple Studies Yosi Whaley MD Phone: tel: fax: [facility] Medical [facility] Cardiology [address] [place] [address] Phone: tel: fax: Referral ID Status Reason Start Date Expiration Date Visits Re quested Visits Authorized [id number] Closed 03/27/2019 04/25/2019 1 1 Encounter Details Date Type Department Care Team (Late st Contact Info) Description 03/28/2019 11:45 AM CDT Ancillary Procedure [facility] Medical [facility] Cardiology [address] [place] [address] Left arm pain Social History Tobacco [...] on file Legal Sex Female 3:01 AM FINANCIAL BUSINESS ANALYST Gender Identity Female 06/07/2020 11:17 AM FINANCIAL BUSINESS ANALYST Sexual Orientation Straight 06/07/2020 11 :17 AM FINANCIAL BUSINESS ANALYST documented as of this encounter Plan of [...] AM CDT [facility] [address] [address] [address], [place] [address] P:[phone] P:[phone] MPI Imaging Report Patient Name: RIGOBERTO ELISE R : 1940 Study Date: 03/28/2019 9:01:12 AM Gender: F Tech: [facility] Location: [facility] Ref.Physician: Yosi WHALEY Height(Cm): 170.2 BSA: Weight(Kg): [...] normal. Electronically Signed By: Wanda Akers MD, [facility] 2019-03-28 20:49:49 CDT Electronically Signed By: Austen Norman MD 2019-03-29 06:53:38 CDT CC: CC: Procedure Note Austen Norman MD - 03/29/2019 [facility] [address] [address], [place] [address] P:[phone] P:[phone] MPI Imaging Report Patient Name: RIGOBERTO ELISE RPatiecoleen ID: [id number] : [id number] Date: 03/28/2019 9:01:12 AM Gender: FAccession #: [id number] [facility] Ref.Physician: Laurie WHALEY(Cm): 170.2 BSA: Weight(Kg): 96.9 [...] normal. Electronically Signed By: Wanda Akers MD, [facility] 2019-03-28 20:49:49 CDT Electronically Signed By: Austen Norman MD 2019-03-29 06:53:38 CDT CC: CC: [facility] Johnnie Whaley MD [facility] PROCEDURES Final Result documented in this encounter [...] millicuries documented in this encounter Care Teams Fire Suppression Captain Relationship Specialty Start Date End Date Yosi Whaley MD [address] [place] [address] PCP - General 03/08/13 07/13/19 documented as of this encounter
--- OUTSIDE RECORDS SUMMARY | 2024-06-28 17:13 | XMS_ITS | Encounter Summary ---
Author Organization [facility] Address [address] [place] [address] Phone Care Team Providers Care Rehabilitation Director Name Role Phone Yosi Whaley MD Primary Care Provider Encounter Details Date Type Department Care Team (Late st Contact Info) Description 08/29/2018 Orders Only [facility] Oncology [address] [place] [address] [place] [phone] Akbar Pittman Jr., MD [address] [facility] [facility] [place] [address] Social History Tobacco Use Types Packs/Day Years [...] on file Legal Sex Female 3:01 AM SVP DIGITAL SALES Gender Identity Female 06/07/2020 11:17 AM SVP DIGITAL SALES Sexual Orientation Straight 06/07/2020 11 :17 AM SVP DIGITAL SALES documented as of this encounter Plan of [...] PM CDT Performed at: ??01 - [facility] Oncology [address] [place], [place] [id number] Terminal Manager: Juvencio Shaw MD, Phone: ??[phone] us Akbar Pittman Jr., MD LAB BLOOD ORDERABLES Final Result [facility] documented in this encounter Visit Diagnoses Not on filedocumented in this encounter Care Teams Rehabilitation Director Relationship Specialty Start Date End Date Yosi Whaley MD [address] [place] [address] PCP - General 03/08/13 07/13/19 documented as of this encounter
--- OUTSIDE RECORDS SUMMARY | 2024-06-28 17:13 | XMS_ITS | Encounter Summary ---
Author Organization [facility] Address [address] [place] [address] Phone Care Team Providers Care Packing Clerk Name Role Phone Yosi Whaley MD Primary Care Provider [phone] Yosi Whaley MD Unavailable Encounter Details Date Type Department Care Team (Late st Contact Info) Description 09/08/2019 Telephone [facility] Oncology [address] [place] [address] Jennifer Ceja, RN Social History Tobacco Use [...] on file Legal Sex Female 3:01 AM RECEIVABLE CLERK Gender Identity Female 06/07/2020 11:17 AM RECEIVABLE CLERK Sexual Orientation Straight 06/07/2020 11 :17 AM RECEIVABLE CLERK documented as of this encounter Miscellaneous Notes [...] These situations will be decided on a mydj-xw-jowz basis. ??? All visitors must follow hand-hygiene [...] latest updates, please go to [employer]'s website ([email or web address]) and click on the COVID19 link at [...] on filedocumented in this encounter Care Teams Packing Clerk Relationship Specialty Start Date End Date Yosi Whaley MD [address] [place] [address] PCP - General 07/14/19 02/03/23 Yosi Whaley MD [address] [place] [address] 07/14/19 02/03/23 documented as of this encounter
--- OUTSIDE RECORDS SUMMARY | 2024-06-28 17:13 | XMS_ITS | Encounter Summary ---
Author Organization [facility] Address [address] [place] [address] Care Team Providers Care Laboratory Apparatus Glass Blower Name Role Phone Yosi Whaley MD Primary Care Provider [phone] Yosi Whaley MD Unavailable Encounter Details Date Type Department Care Team (Late st Contact Info) Description 06/11/2020 Orders Only [facility] Cardiology [address] [place] [address] Provider, MD Sanjay [address] [place], [place] [id number] Social History Tobacco Use Types Packs/Day Years [...] on file Legal Sex Female 3:01 AM INSURANCE SALESPERSON Gender Identity Female 06/07/2020 11:17 AM INSURANCE SALESPERSON Sexual Orientation Straight 06/07/2020 11 :17 AM INSURANCE SALESPERSON documented as of this encounter Plan of [...] on filedocumented in this encounter Care Teams Laboratory Apparatus Glass Blower Relationship Specialty Start Date End Date Yosi Whaley MD [address] [place] [address] PCP - General 07/14/19 02/03/23 Yosi Whaley MD [address] [place] [address] 07/14/19 02/03/23 documented as of this encounter
--- OUTSIDE RECORDS SUMMARY | 2024-06-28 17:13 | XMS_ITS | Encounter Summary ---
Author Organization [facility] Address [address] [place] [address] Care Team Providers Care Medical Auditor Name Role Phone Yosi Whaley MD Primary Care Provider [phone] Yosi Whaley MD Unavailable Reason for Visit * Cardiology (Routine) - Closed Specialty Diagnoses / Procedures Referred By Contdusty t Referred To Contact Diagnoses Edema, unspecified type Procedures Transthoracic Echo Complete W Doppler/CF Yue Kowalski PA [address] [place] [address] Phone: tel: fax: [facility] Referral ID Status Reason Start Date Expiration Date Visits Re quested Visits Authorized [id number] Closed 05/24/2020 06/22/2020 1 1 Encounter Details Date Type Department Care Team (Latest Contact Info) Description 05/28/2020 11:15 AM MOPPER Ancillary Procedure [facility] Cardiology [address] [place] [address] Edema, unspecified type Social History Tobacco Use [...] on file Legal Sex Female 3:01 AM MOPPER Gender Identity Female 06/07/2020 11:17 AM MOPPER Sexual Orientation Straight 06/07/2020 11 :17 AM MOPPER documented as of this encounter Last Filed [...] COMPLETE W DOPPLER/CF Routine 05/28/2020 10:47 AM MOPPER Edema, unspecified type documented in this encounter Results * Transthoracic Echo Complete W Doppler/CF (05/28/2020 10:47 AM MOPPER) Anatomical Region Laterality Modality Ultrasound 05/28/2020 10:4 7 AM MOPPER Narrative 05/28/2020 12:27 PM MOPPER [facility] Cardiology [address], [place] [address] [address] [facility] [address], [place] [address] P:[phone] P:[phone] Echocardiographic Report Patient Name: RIGOBERTO ELISE : 1940 Study Date: 05/28/2020 10:47:38 AM Gender: F Tech: Location: ID Ref.Provider: SARA Height(Cm): 170 BSA: 2.13 Weight(Kg): [...] Findings: Interpretation Site: Exam was interpreted at [facility]. Left Ventricle: Normal left ventricular systolic function. [...] Signed By: Austen Norman MD 2020-05-28 12:27:09 MOPPER Procedure Note Austen Norman MD - 05/28/2020 [facility] Cardiology [address] [facility] [address], [place] [address] [address] [facility] [address], [place] [address] P:[phone] P:[phone] Echocardiographic Report Patient Name: Suzie ELISE ID: [id number] : [id number] Date: 05/28/2020 10:47:38 AM Gender: FAccession #: [id number] Tech: GMLocation: ID Ref.Provider: Micheleight(Cm): 170 BSA: 2.13Weight(Kg): 102.51 Heart [...] 16.00 - 28.00 ] cc/m2 MV Decel [id number] [ 150 - 200 ] msec ACS MM 2.17 cm PV Peak Vel0.79 [ 0.40 - 0.80 ] m/s TR Peak Vel3.18 [ 0.40 - 0.80 ] m/s TR Peak PG 40mmHg RVSP48.00 mmHg E'0.07 E/E' 11 Findings: Interpretation Site: Exam was interpreted at [facility]. Left Ventricle: Normal left ventricular systolic function. [...] Signed By: Austen Norman MD 2020-05-28 12:27:09 MOPPER Yue [facility] CV ECHO PROCEDURES Kenna l Result documented in this encounter Visit Diagnoses Diagnosis Edema, unspecified type documented in this encounter Care Teams Medical Auditor Relationship Specialty Start Date End Date Yosi Whaley MD [address] [place] [id number] PCP - General 07/14/19 02/03/23 Yosi Whaley MD [address] [place] [id number] 07/14/19 02/03/23 documented as of this encounter
--- OUTSIDE RECORDS SUMMARY | 2024-06-28 17:13 | XMS_ITS | Encounter Summary ---
Author Organization [facility] Address [address] [place] [address] Phone Care Team Providers Care Bacteriologist Dairy Name Role Phone Yosi Whaley MD Primary Care Provider [phone] Reason for Visit * Reason Comments Follow-up * Oncology (Routine) - Closed Specialty Diagnoses / Procedures Referred By Sharlene uriarte Referred To Contact Medical Oncology / Oncology Diagnoses Multiple myeloma not having achieved remission (CMS/HCC) (HCC) Procedures ONCBCN CLINIC APPOINTMENT REQUEST RETURN Akbar Pittman Jr., MD [address] [place] [address] [place] [address] Phone: tel: fax: Akbar Pittman Jr., MD [address] [place] [address] [place] [address] Phone: tel: fax: Referral ID Status Reason Start Date Expiration Date V isits Requested Visits Authorized [id number] Closed Specialty Services Required 07/10/2019 06/20/2020 99 99 Encounter Details Date Type Department Care Team (Late st Contact Info) Description 07/10/2019 9:45 AM SURGERY TECHNICIAN Office Visit [facility] Oncology [address] [place] [phone] Akbar Pittman Jr., MD [address] [place] [address] [place] [address] Multiple myeloma not having achieved remission (CMS/HCC) [...] on file Legal Sex Female 3:01 AM SURGERY TECHNICIAN Gender Identity Female 06/07/2020 11:17 AM SURGERY TECHNICIAN Sexual Orientation Straight 06/07/2020 11 :17 AM SURGERY TECHNICIAN documented as of this encounter Last Filed Vital Signs Vital Sign Reading Time Taken Comments Blood Pressure 189/85 07/10/2019 9:46 AM SURGERY TECHNICIAN rn notified Pulse 80 07/10/2019 9:46 AM SURGERY TECHNICIAN Temperature 36.6 ??C (97.9 ??F) 07/10/2019 9 :46 AM SURGERY TECHNICIAN Respiratory Rate 16 07/10/2019 9:46 AM SURGERY TECHNICIAN Oxygen Saturation 98% 07/10/2019 9:4 6 AM SURGERY TECHNICIAN Inhaled Oxygen Concentration - - Weight 93.3 kg (205 lb 9.6 oz) 07/10/19 9:46 AM SURGERY TECHNICIAN Height 170.2 cm (5' 7.01 ) 07/10/2019 9 :46 AM SURGERY TECHNICIAN Body Mass Index 32.19 07/10/2019 9:46 AM SURGERY TECHNICIAN documented in this encounter Progress Notes * [...] cell count was 4.9, platelet count was 198016. Metabolic profile was unremarkable. IgG was 350, [...] was 13 g, and a platelet countof 622970. A complete metabolic profile was unremarkable. LDH [...] Judgment normal. Performance Status: Symptomatic; fully ambulatory ERY TECHNICIAN documented in this encounter Plan of Treatment Not on file documented as of this encounter Visit Diagnoses Diagnosis Multiple myeloma not having achieved remission (CMS/HCC) (HCC)- Primary documented in this encounter Orders Appointment Requests Count Last Ordered Date Fi rst Ordered Date ONCBCN CLINIC APPOINTMENT REQUEST 1 020 documented in this encounter Care Teams Bacteriologist Dairy Relationship Specialty Start Date End Date Yosi Whaley MD [address] [place] [place] [address] PCP - General 03/08/13 07/13/19 documented as of this encounter
--- OUTSIDE RECORDS SUMMARY | 2024-06-28 17:13 | XMS_ITS | Encounter Summary ---
Author Organization [facility] Address [address] [place] [address] Phone Care Team Providers Care Model And Dye Person Name Role Phone Yosi Whaley MD Primary Care Provider [phone] Yosi Whaley MD Primary Care Provider [phone] Yosi Whaley MD Unavailable Reason for Visit * Reason Comments Follow-up * Consultation (Routine) - Closed Specialty Diagnoses / Procedures Referred By Contac t Referred To Contact Oncology Diagnoses Multiple myeloma, remission status unspecified (HCC) No, Physician Phone: tel: [facility] [address] [place] [address] [place] [address] Phone: tel: fax: Referral ID Status Reason Start Date Expiration Date V isits Requested Visits Authorized [id number] Closed Specialty Services Required 08/19/2018 06/20/2024 99 99 Encounter Details Date Type Department Care Team (Late st Contact Info) Description 09/05/2018 9:15 AM CDT Office Visit [facility] Oncology [address] [place] [phone] Akbar Pittman Jr., MD [address] [place] [address] Multiple myeloma not having achieved remission (CMS/HCC) [...] on file Legal Sex Female 3:01 AM ASSESSMENT COUNSELOR Gender Identity Female 06/07/2020 11:17 AM ASSESSMENT COUNSELOR Sexual Orientation Straight 06/07/2020 11 :17 AM ASSESSMENT COUNSELOR documented as of this encounter Last Filed [...] was 13 g, and a platelet countof 456557. A complete metabolic profile was unremarkable. LDH [...] Lactate Dehydrogenase 235 100 - 250 U/L [facility] Blood specimen (specimen) 09/11/2019 10:22 AM CDT 09/11/2019 10:28 AM CDT Narrative Resulting Agency Comment RCR us Akbar Pittman Jr., MD LAB BLOOD ORDERABLES Final Result [facility] [address] [place], [place] [id number] documented in this encounter Visit Diagnoses Diagnosis Multiple myeloma, remission status unspecified (HCC) Anemia, unspecified type documented in this encounter Orders Appointment Requests Count Last Ordered Date Fi rst Ordered Date ONCBCN CLINIC APPOINTMENT REQUEST 2 019 09/05/2018 documented in this encounter Care Teams Model And Dye Person Relationship Specialty Start Date End Date Yosi Whaley MD [address] [place] [address] PCP - General 03/08/13 07/13/19 Yosi Whaley MD [address] [place] [address] PCP - General 07/14/19 02/03/23 Yosi Whaley MD [address] [place] [address] 07/14/19 02/03/23 documented as of this encounter
--- OUTSIDE RECORDS SUMMARY | 2024-06-28 17:13 | XMS_ITS | Encounter Summary ---
Author Organization [facility] Address [address] [place] [address] Phone Care Team Providers Care Field Operator Name Role Phone Yosi Whaley MD Primary Care Provider [phone] Yosi Whaley MD Unavailable Encounter Details Date Type Department Care Team (Late st Contact Info) Description 11/14/2020 Orders Only [facility] Oncology [address] [place] [phone] Venessa Hernandez, RN Multiple myeloma not having [...] on file Legal Sex Female 3:01 AM NOTE SPECIALIST Gender Identity Female 06/07/2020 11:17 AM NOTE SPECIALIST Sexual Orientation Straight 06/07/2020 11 :17 AM NOTE SPECIALIST documented as of this encounter Plan [...] * (ABNORMAL) IgM (11/21/2020 2:11 PM CDT) [facility] Immunoglobulin M 20(L) 50 - 300 mg/dL [facility] Blood specimen (specimen) 11/21/2020 2:11 PM CDT 11/21/2020 2:12 PM CDT Narrative [facility] - 11/22/2020 3:25 PM CDT AN UPDATE OR CORRECTION HAS BEEN MADE TO NAME us Akbar Pittman Jr., MD LAB BLOOD ORDERABLES Final Result [facility] [address] [place] [address] * (ABNORMAL) IgA (11/21/2020 2:11 PM CDT) Immunoglobulin A 51(L) 70 - 320 mg/dL [facility] Blood specimen (specimen) 11/21/2020 2:11 PM CDT 11/21/2020 2:12 PM CDT Narrative [facility] - 11/22/2020 3:25 PM CDT AN UPDATE OR CORRECTION HAS BEEN MADE TO NAME Akbar Pittman Jr., MD LAB BLOOD ORDERABLES Final Result Performing Organization Address [facility] de Phone Number [facility] [address] [place] [address] * (ABNORMAL) Beta 2 microglobulin, serum (11/21/2020 2:11 PM CDT) Beta 2 Microglobulin, Serum 3.53(H) < OR = 2.51 mg/L [facility] Blood specimen (specimen) 11/21/2020 2:11 PM CDT 11/21/2020 2:12 PM CDT Narrative [facility] - 11/22/2020 3:25 PM CDT AN UPDATE OR CORRECTION HAS BEEN MADE TO NAME Akbar Pittman Jr., MD LAB BLOOD ORDERABLES Final Result Performing Organization Address [facility] Phone Number [facility] [address] [place] [address] * (ABNORMAL) KAPPA/LAMBDA LIGHT CHAINS FREE WITH RATIO, SERUM (11/21/2020 2:11 PM CDT) [place] light chain, free 121.0(H) 3.3 - 19.4 mg/L [facility] Lambda light chain, free 6.6 5.7 - 26.3 mg/L [facility] [place]/Lambda light chains free with ratio 18.33(H) 0.26 - 1.65 [facility] Comment: Free kappa/lambda ratio in serum of [...] BLOOD ORDERABLES Final Result Performing Organization Address [facility]/ZIP Co de Phone Number [facility] [address] [place] [address] * (ABNORMAL) IgG (11/21/2020 2:11 PM CDT) Immunoglobulin G 375(L) 600 - 1,540 mg/dL [facility] Blood specimen (specimen) 11/21/2020 2:11 PM CDT 11/21/2020 2:12 PM CDT Narrative [facility] - 11/22/2020 3:25 PM CDT AN UPDATE OR CORRECTION HAS BEEN MADE TO NAME Akbar Pittman Jr., MD LAB BLOOD ORDERABLES Final Result Performing Organization Address [facility] Co de Phone Number [facility] [address] [place] [address] * Lactate dehydrogenase (LD) (11/21/2020 2:11 PM CDT) Lactate dehydrogenase (LDH) 145 120 - 250 U/L [facility] Blood specimen (specimen) 11/21/2020 2:11 PM CDT 11/21/2020 2:12 PM CDT Narrative [facility] - 11/22/2020 3:25 PM CDT AN UPDATE OR CORRECTION HAS BEEN MADE TO NAME us Akbar Pittman Jr., MD LAB BLOOD ORDERABLES Final Result [facility] [address] [address] * (ABNORMAL) CBC with auto differential (11/21/2020 [...] LAB BLOOD ORDERABLES Final Result [facility] [address] [facility] [place] [address] * (ABNORMAL) Comprehensive metabolic panel (11/21/2020 2:11 PM CDT) [facility] Glucose 141(H) 65 - 99 mg/dL [facility] [...] approximately 13% higher for people identified as -Malian. eGFR NON-AFR. LEBANESE 48(L) > OR = 60 mL/min/1. 73m2 [...] BLOOD ORDERABLES Final Result [facility] [address] [place] [address] documented in this encounter Visit Diagnoses Diagnosis Multiple myeloma not having achieved remission (CMS/HCC) (HCC)- Primary documented in this encounter Care Teams Field Operator Relationship Specialty Start Date End Date Yosi Whaley MD [address] [place] [address] PCP - General 07/14/19 02/03/23 Yosi Whaley MD [address] [place], [place] [address] 07/14/19 02/03/23 documented as of this encounter
--- OUTSIDE RECORDS SUMMARY | 2024-06-28 17:13 | XMS_ITS | Encounter Summary ---
Author Organization [facility] Facility Care Team Providers Care Senior Major Gifts Officer Name Role Phone Yosi Whaley MD Primary Care Provider [phone] Encounter Details Date Type Department Care Team [...] on file Legal Sex Female 3:01 AM WALLPAPERER Gender Identity Female 06/07/2020 11:17 AM WALLPAPERER Sexual Orientation Straight 06/07/2020 11 :17 AM WALLPAPERER documented as of this encounter Plan of Treatment Not on file documented as of this encounter Visit Diagnoses Not on filedocumented in this encounter Care Teams Senior Major Gifts Officer Relationship Specialty Start Date End Date Yosi Whaley MD [address] [place] [address] PCP - General 03/08/13 07/13/19 documented as of this encounter
--- OUTSIDE RECORDS SUMMARY | 2024-06-28 17:13 | XMS_ITS | Encounter Summary ---
Author Organization [facility] Facility Care Team Providers Care Hand Coremaker Name Role Phone Yosi Whaley MD Primary Care Provider [phone] Encounter Details Date Type Department Care Team [...] on file Legal Sex Female 3:[address] SQL DEVELOPER Gender Identity Female 06/07/2020 11:[address] SQL DEVELOPER Sexual Orientation Straight 06/07/2020 11 :[address] SQL DEVELOPER documented as of this encounter Plan of Treatment Not on file documented as of this encounter Visit Diagnoses Not on filedocumented in this encounter Care Teams Hand Coremaker Relationship Specialty Start Date End Date Yosi Whaley MD [address] [place] [address] PCP - General 03/08/13 07/13/19 documented as of this encounter
--- OUTSIDE RECORDS SUMMARY | 2024-06-28 17:13 | XMS_ITS | Encounter Summary ---
Author Organization [facility] Address [address] [place] [address] Phone Care Team Providers Care Rattle Leak And Squeak Repairer Name Role Phone Yosi Whaley MD Primary Care Provider [phone] oYsi Whaley MD Unavailable Encounter Details Date Type Department Care Team (Late st Contact Info) Description 11/14/[address] [facility] Oncology [address] [place] [phone] Venessa Hernandez, RN Multiple myeloma not having [...] on file Legal Sex Female 3:01 AM DETAIL SUPERVISOR Gender Identity Female 06/07/2020 11:17 AM DETAIL SUPERVISOR Sexual Orientation Straight 06/07/2020 11 :17 AM DETAIL SUPERVISOR documented as of this encounter Plan of Treatment Not on file documented as of this encounter Visit Diagnoses Diagnosis Multiple myeloma not having achieved remission (CMS/HCC) (HCC)- Primary documented in this encounter Orders Appointment Requests Count Last Ordered Date Fi rst Ordered Date ONCBCN CLINIC APPOINTMENT REQUEST 1 021 documented in this encounter Care Teams Rattle Leak And Squeak Repairer Relationship Specialty Start Date End Date Yosi Whaley MD [address] [place] [address] PCP - General 07/14/19 02/03/23 Yosi Whaley MD [address] [place] [address] 07/14/19 02/03/23 documented as of this encounter
--- OUTSIDE RECORDS SUMMARY | 2024-06-28 17:13 | XMS_ITS | Encounter Summary ---
Author Organization [facility] Facility Care Team Providers Care Horticultural Worker Name Role Phone Yosi Whaley MD Primary Care Provider [phone] Encounter Details Date Type Department Care Team [...] file Legal Sex Female 3:01 AM HAND LOOM WEAVER Gender Identity Female 06/07/2020 11:17 AM HAND LOOM WEAVER Sexual Orientation Straight 06/07/2020 11 :17 AM HAND LOOM WEAVER documented as of this encounter Plan of Treatment Not on file documented as of this encounter Visit Diagnoses Not on filedocumented in this encounter Care Teams Horticultural Worker Relationship Specialty Start Date End Date Yosi Whaley MD [address] [place] [address] PCP - General 03/08/13 07/13/19 documented as of this encounter
--- OUTSIDE RECORDS SUMMARY | 2024-06-28 17:13 | XMS_ITS | Encounter Summary ---
Author Organization [facility] Address [address] [place] [address] Care Team Providers Care Trimmer And Borer Machine Operator Name Role Phone Yosi Whaley MD Primary Care Provider [phone] Yosi Whaley MD Unavailable Reason for Referral * (Routine) - Closed Specialty Diagnoses / Procedures Referred By Contac t Referred To Contact Diagnoses History of 2019 novel coronavirus disease (COVID-19) Procedures ECG 12 lead Tiffani Back NP [address] [facility] [address] [address] Phone: tel: fax: [facility] Referral ID Status Reason Start Date Expiration Date Visits Re quested Visits Authorized [id number] Closed 07/05/2020 08/04/2021 1 1 CARE MANAGER RN Reason for Visit * Reason Comments Mitral valve infsufficiency 1 month f/u Had COVID-19 cleared by [facility] pt Encounter Details Date Type Department Care Team (Late st Contact Info) Description 07/05/2020 3:30 PM HOME CARE MANAGER RN Office Visit [facility] Cardiology [address] [facility] [address] [address] Tiffani Back NP [address] [facility] [address] [address] History of 2019 novel coronavirus [...] on file Legal Sex Female 3:01 AM HOME CARE MANAGER RN Gender Identity Female 06/07/2020 11:17 AM HOME CARE MANAGER RN Sexual Orientation Straight 06/07/2020 11 :17 AM HOME CARE MANAGER RN documented as of this encounter Last Filed Vital Signs Vital Sign Reading Time Taken Comments Blood Pressure 108/66 07/05/2020 3:59 PM HOME CARE MANAGER RN Pulse 68 07/05/2020 3:59 PM HOME CARE MANAGER RN Temperature - - Respiratory Rate - - Oxygen Saturation 95% 07/05/2020 3:59 PM HOME CARE MANAGER RN Inhaled Oxygen Concentration - - Weight 97.4 kg (214 lb 12.8 oz) 07/05/2020 3:59 PM HOME CARE MANAGER RN Height 172.7 cm (5' 8 ) 07/05/2020 3:59 PM HOME CARE MANAGER RN Body Mass Index 32.66 07/05/2020 3:59 PM HOME CARE MANAGER RN documented in this encounter Progress Notes * Pauly Rosales - 07/05/2020 3:30 PM CST Let Shaina know CARE MANAGER RN * Tiffani Back NP - 07/05/2020 3:30 PM CST Images from the original note were not included. [facility] Cardiology [address] [place] [address] Date of Visit: 07/05/2020 Patient ID: Sloane [...] recall medication. In August 2019 high free Lavalette LC, K/L ratio 20.77, B2 microglobulin, low IgM, IgA, IgG followed by Dr. Pittman. Currently has a great deal of pain in feet and legs and makes it very difficult to walk. 07/05/20 1 month follow up with LABORATORY TECH: Over the past month, she has stopped [...] (See comments) Sleeps all day ??? Extendryl [Jsrijdxnrwncenll-Fr-Huqwrcucyv] Other (See comments) Hard to awaken ??? [...] , Disp: , Rfl: ??? glucosam velasquez tqq-umapyijzw-B-Mn 583-293-41-3 mg capsule, , Disp: , Rfl: ??? [...] this plan. RAIZA Ortiz-BC Nurse Practitioner with [facility] [place] This note is dictated and transcribed using [employer] Software. Food And Drug Research Scientist variancesmay occur. Despite proofreading, typographical errors may occur. CARE MANAGER RN documented in this encounter Plan of Treatment [...] documented as of this encounter Care Teams Trimmer And Borer Machine Operator Relationship Specialty Start Date End Date Yosi Whaley MD [address] [place] [address] PCP - General 07/14/19 02/03/23 Yosi Whaley MD [address] [place] [address] 07/14/19 02/03/23 documented as of this encounter
--- OUTSIDE RECORDS SUMMARY | 2024-06-28 17:13 | XMS_ITS | Encounter Summary ---
Author Organization [facility] Address [address] [place] [address] Phone Care Team Providers Care Cat Hooker Name Role Phone Yosi Whaley MD Primary Care Provider Encounter Details Date Type Department Care Team (Late st Contact Info) Description 08/29/2018 3:30 PM CDT Lab [facility] Oncology [address] [place] [phone] Multiple myeloma, remission status unspecified (CMS/HCC); Anemia, [...] file Legal Sex Female 3:01 AM ASSISTANT MANAGER/EMBALMER Gender Identity Female 06/07/2020 11:17 AM ASSISTANT MANAGER/EMBALMER Sexual Orientation Straight 06/07/2020 11 :17 AM ASSISTANT MANAGER/EMBALMER documented as of this encounter Plan of Treatment Not on file documented as of this encounter Visit Diagnoses Diagnosis Multiple myeloma, remission status unspecified (HCC) Anemia, unspecified type documented in this encounter Orders Appointment Requests Count Last Ordered Date Fi rst Ordered Date ONCBCN LAB APPOINTMENT 1 08/29/2018 documented in this encounter Care Teams Cat Hooker Relationship Specialty Start Date End Date Yosi Whaley MD [address] [place] [place] [address] PCP - General 03/08/13 07/13/19 documented as of this encounter
--- OUTSIDE RECORDS SUMMARY | 2024-06-28 17:13 | XMS_ITS | Encounter Summary ---
Author Organization [facility] Address [address] [place] [address] Phone Care Team Providers Care Youth Career Specialist Name Role Phone Yosi Whaley MD Primary Care Provider [phone] Yosi Whaley MD Unavailable Reason for Visit * Reason Comments Follow-up Encounter Details Date Type Department Care Team (Late st Contact Info) Description 12/10/2020 11:45 AM CDT Office Visit [facility] Oncology [address] [place] [address] [address] [place] [address] Akbar Pittman Jr., MD [facility] [place] [address] Multiple myeloma not having achieved [...] on file Legal Sex Female 3:01 AM CARTON FILLER Gender Identity Female 06/07/2020 11:17 AM CARTON FILLER Sexual Orientation Straight 06/07/2020 11 :17 AM CARTON FILLER documented as of this encounter Last Filed [...] cell count was 4.9, platelet count was [id number]. Metabolic profile was unremarkable. IgG was 350, [...] was 13 g, and a platelet countof 032121. A complete metabolic profile was unremarkable. LDH [...] BLOOD ORDERABLES Final Result Performing Organization Address [facility] de Phone Number [facility] [address] [place] [address] * (ABNORMAL) IgA (12/04/2021 9:24 AM CDT) Pathologist [facility] Immunoglobulin A 57(L) 70 - 320 mg/dL [facility] Blood specimen (specimen) 12/04/2021 9:24 AM CDT 12/04/2021 9:25 AM CDT us Akbar Pittman Jr., MD LAB BLOOD ORDERABLES Final Result Performing Organization Address [facility] Phone Number [facility] [address] [place] [address] * (ABNORMAL) Protein Electrophoresis, With Reflex, Serum (12/04/2021 9:24 AM CDT) Pathologist [facility] Protein, sr 6.4 6.1 - 8.1 g/dL [facility] ALBUMIN 4.2 3.8 - 4.8 g/dL [facility] Alpha-1 Globulin 0.3 0.2 - 0.3 g/dL [facility] Alpha-2 Globuliin 0.8 0.5 - 0.9 g/dL [facility] Beta-1 globulin 0.4 0.4 - 0.6 g/dL [facility] Beta 2 globulin 0.3 0.2 - 0.5 g/dL [facility] Gamma globulin 0.5(L) 0.8 - 1.7 g/dL [facility] Abnormal protein band 0.2(H) NONE DETECTED g/dL [facility] SPE, interp [facility] Comment: Faint restricted band (M-spike) migrating in the gamma region. Consider serum immunofixation to rule out a monoclonal protein if clinically indicated. Blood specimen (specimen) 12/04/2021 9:24 AM CDT 12/04/2021 9:25 AM CDT us Akbar Pittman Jr., MD LAB BLOOD ORDERABLES Final Result Performing Organization Address [facility] de Phone Number [facility] [address] [place] [address] * (ABNORMAL) Beta 2 microglobulin, serum (12/04/2021 9:24 AM CDT) Beta 2 Microglobulin, Serum 4.02(H) < OR = 2.51 mg/L [facility] Blood specimen (specimen) 12/04/2021 9:24 AM CDT 12/04/2021 9:25 AM CDT Akbar Pittman Jr., MD LAB BLOOD ORDERABLES Final Result Performing Organization Address [facility] Phone Number [facility] [address] [place] [address] * (ABNORMAL) KAPPA/LAMBDA LIGHT CHAINS FREE WITH RATIO, SERUM (12/04/2021 9:24 AM CDT) [place] light chain, free 151.0(H) 3.3 - 19.4 mg/L [facility] Lambda light chain, free 8.1 5.7 - 26.3 mg/L [facility] [place]/Lambda light chains free with ratio 18.64(H) 0.26 - 1.65 [facility] Comment: Free kappa/lambda ratio in serum of [...] BLOOD ORDERABLES Final Result Performing Organization Address [facility] de Phone Number [facility] [address] [place] [address] * (ABNORMAL) IgG (12/04/2021 9:24 AM CDT) Pathologist [facility] Immunoglobulin G 368(L) 600 - 1,540 mg/dL [facility] Blood specimen (specimen) 12/04/2021 9:24 AM CDT 12/04/2021 9:25 AM CDT Akbar Pittman Jr., MD LAB BLOOD ORDERABLES Final Result Performing Organization Address [facility] de Phone Number [facility] [address] [place] [address] * Lactate dehydrogenase (LD) (12/04/2021 9:24 AM CDT) [facility] Lactate dehydrogenase (LDH) 164 120 - 250 U/L [facility] Blood specimen (specimen) 12/04/2021 9:24 AM CDT 12/04/2021 9:25 AM CDT Akbar Pittman Jr., MD LAB BLOOD ORDERABLES Final Result Performing Organization Address [facility] de Phone Number [facility] [address] [place] [address] * (ABNORMAL) CBC with auto differential (12/04/2021 9:24 AM CDT) [facility] WBC 4.0 3.8 - 10.8 Thousand/u [...] LAB BLOOD ORDERABLES Final Result [facility] [address] [place] [address] * (ABNORMAL) Comprehensive metabolic panel (12/04/2021 9:24 AM CDT) Glucose 154(H) 65 - 99 mg/dL [facility] Comment: ? Fasting reference interval For someone without known diabetes, a glucose value >125 mg/dL indicates that they may have diabetes and this should be confirmed with a follow-up test. BUN 18 7 - 25 mg/dL [facility] Creatinine 0.84 0.60 - 0.88 mg/dL [facility] Comment: For patients >49 years of age, the reference limit for Creatinine is approximately 13% higher for people identified as -Gabonese. eGFR NON-AFR. GUAMANIAN 66 > OR = 60 mL/min/1 .73m2 [facility] EGFR 76 > OR = 60 mL/min/1 .73m2 [facility] BUN/creat ratio NOT APPLICABLE 6 - 22 (calc) [facility] Sodium 140 135 - 146 mmol/L [facility] Potassium, pl 3.8 3.5 - 5.3 mmol/L [facility] Chloride 100 98 - 110 mmol/L [facility] CO2 30 20 - 32 mmol/L [facility] Calcium 9.6 8.6 - 10.4 mg/dL [facility] Protein, sr 6.4 6.1 - 8.1 g/dL [facility] Albumin 4.4 3.6 - 5.1 g/dL [facility] GLOBULIN 2.0 1.9 - 3.7 g/dL (calc) [facility] Alb/glob ratio 2.2 1.0 - 2.5 (calc) [facility] Bilirubin, total 0.3 0.2 - 1.2 mg/dL [facility] Alk phos 68 37 - 153 U/L [facility] AST 16 10 - 35 U/L [facility] ALT (SGPT) 12 6 - 29 U/L [facility] Blood specimen (specimen) 12/04/2021 9:24 AM CDT 12/04/2021 9:25 AM CDT us Akbar Pittman Jr., MD LAB BLOOD ORDERABLES Final Result [facility] [address] [place] [address] documented in this encounter Visit Diagnoses Diagnosis [...] 12/10/2020 documented in this encounter Care Teams Youth Career Specialist Relationship Specialty Start Date End Date Yosi Whaley MD [address] [place] [address] PCP - General 07/14/19 02/03/23 Yosi Whaley MD [address] [place] [address] 07/14/19 02/03/23 documented as of this encounter
--- OUTSIDE RECORDS SUMMARY | 2024-06-28 17:13 | XMS_ITS | Encounter Summary ---
Author Organization [facility] Address [address] [place] [address] Care Team Providers Care Laboratory Assistant Name Role Phone Yosi Whaley MD Primary Care Provider [phone] Yosi Whaley MD Unavailable Encounter Details Date Type Department Care Team (Late st Contact Info) Description 09/11/2019 10:12 AM CDT - 09/19/2019 11:59 PM CDT Hospital Encounter [facility] Akbar Pittman Jr., MD [address] [place] [address] Social History Tobacco Use Types Packs/Day Years [...] on file Legal Sex Female 3:01 AM AUTHORIZATION COORDINATOR Gender Identity Female 06/07/2020 11:17 AM AUTHORIZATION COORDINATOR Sexual Orientation Straight 06/07/2020 11 :17 AM AUTHORIZATION COORDINATOR COVID-19 Exposure Response Date Recorded In the last month, have you been in contact with someone who was confirmed or suspected to have Coronavirus / COVID-19? No / Unsure 09/11/2019 10:05 AM CDT documented as of this encounter Medications at Time of Discharge ezetimibe (ZETIA) 10 mg tablet TK 1 T PO QD 3 02/27/2019 fluticasone (FLONASE) 50 mcg/actuation nasal spray glucosam velasquez jue-olijzzscm-M- [place] [phone] mg capsule hydroCHLOROthiaz angela (HYDRODIURIL) 25 mg [...] filedocumented in this encounter Care Teams Laboratory Assistant Relationship Specialty Start Date End Date Yosi Whaley MD [address] [place] [address] PCP - General 07/14/19 02/03/23 Yosi Whaley MD [address] [place] [address] 07/14/19 02/03/23 documented as of this encounter
--- OUTSIDE RECORDS SUMMARY | 2024-06-28 17:13 | XMS_ITS | Encounter Summary ---
Author Organization [facility] Address [address] [place] [address] Phone Care Team Providers Care Diamond Setter Name Role Phone Yosi Whaley MD Primary Care Provider [phone] Yosi Whaley MD Unavailable Encounter Details Date Type Department Care Team (Late st Contact Info) Description 07/18/2019 Telephone [facility] [address] [place] [address] Jennifer Ceja, RN Social History Tobacco Use [...] on file Legal Sex Female 3:01 AM ERP BUSINESS ANALYST Gender Identity Female 06/07/2020 11:17 AM ERP BUSINESS ANALYST Sexual Orientation Straight 06/07/2020 11 :17 AM ERP BUSINESS ANALYST documented as of this encounter Miscellaneous Notes * Telephone Encounter - Jennifer Ceja RN - 07/18/2019 1:35 PM CST Patient notified that PET was negative and it is ok to resume pain management. Patient v/u and was very thankful of my call. BUSINESS ANALYST documented in this encounter Plan of Treatment Not on file documented as of this encounter Visit Diagnoses Not on filedocumented in this encounter Care Teams Diamond Setter Relationship Specialty Start Date End Date Yosi Whaley MD [address] [place] [address] PCP - General 07/14/19 02/03/23 Yosi Whaley MD [address] [place] [address] 07/14/19 02/03/23 documented as of this encounter
--- OUTSIDE RECORDS SUMMARY | 2024-06-28 17:13 | XMS_ITS | Encounter Summary ---
Author Organization [facility] Address [address] [place] [address] Phone Care Team Providers Care Delivery Of Shopping News Name Role Phone Yosi Whaley MD Primary Care Provider [phone] Reason for Visit * Reason Comments Follow-up * Consultation (Routine) - Closed Specialty Diagnoses / Procedures Referred By Sharlene t Referred To Contact Oncology Diagnoses Multiple myeloma, remission status unspecified (HCC) No, Physician Phone: tel: [facility] [address] [place] [address] [place] [address] Phone: tel: fax: Referral ID Status Reason Start Date Expiration Date V isits Requested Visits Authorized [id number] Closed Specialty Services Required 08/19/2018 06/20/2024 99 99 Encounter Details Date Type Department Care Team (Late st Contact Info) Description 03/06/2019 11:00 AM CDT Office Visit [facility] On[facility] [address] [place] [address] [place] [address] Akbar Pittman Jr., MD [facility] [place] [address] Multiple myeloma not having achieved remission (CMS/HCC) [...] on file Legal Sex Female 3:01 AM CONSTRUCTION ADMINISTRATOR Gender Identity Female 06/07/2020 11:17 AM CONSTRUCTION ADMINISTRATOR Sexual Orientation Straight 06/07/2020 11 :17 AM CONSTRUCTION ADMINISTRATOR documented as of this encounter Last [...] cell count was 4.9, platelet count was 263151. Metabolic profile was unremarkable. IgG was 350, [...] was 13 g, and a platelet countof 550435. A complete metabolic profile was unremarkable. LDH [...] WITH RATIO, SERUM Routine 05/29/2019 10:14 AM CONSTRUCTION ADMINISTRATOR Multiple myeloma not having achieved remission (CMS/HCC) IMMUNOGLOBULIN M Routine 05/29/2019 10:1 4 AM CONSTRUCTION ADMINISTRATOR Multiple myeloma not having achieved remission (CMS/HCC) CBC WITH AUTO DIFFERENTIAL Routine 05/29/2019 10:14 AM CONSTRUCTION ADMINISTRATOR Multiple myeloma not having achieved remission (CMS/HCC) IGA Routine 05/29/2019 10:14 AM CONSTRUCTION ADMINISTRATOR Multiple myeloma not having achieved remission (CMS/HCC) IGG Routine 05/29/2019 10:14 AM CONSTRUCTION ADMINISTRATOR Multiple myeloma not having achieved remission (CMS/HCC) BETA 2 MICROGLOBULIN SERUM Routine 05/29/2019 10:14 AM CONSTRUCTION ADMINISTRATOR Multiple myeloma not having achieved remission (CMS/HCC) COMPREHENSIVE METABOLIC PANEL Routine 05/29/2019 10:14 AM CONSTRUCTION ADMINISTRATOR Multiple myeloma not having achieved remission (CMS/HCC) documented in this encounter Results * (ABNORMAL) IMMUNOGLOBULIN M (05/29/2019 10:14 AM CONSTRUCTION ADMINISTRATOR) Immunoglobulin M 24(L) 50 - 300 mg/dL [facility] [place] Blood specimen (specimen) 05/29/2019 10:14 AM CONSTRUCTION ADMINISTRATOR 05/29/2019 10:20 AM CONSTRUCTION ADMINISTRATOR Narrative Resulting Agency Comment Performing Organization Information: ?Site ID: [id number] ?Name: [employer] [facility] ?Address: [address] [place], [place] [address]ner [facility] [place] [address] ?Director: Galileo Odom D.O., MPH Akbar Pittman Jr., MD LAB BLOOD ORDERABLES Final Result Performing Organization Address [facility] Co de Phone Number [facility] [place] [facility] [place] * (ABNORMAL) IgA (05/29/2019 10:14 AM CONSTRUCTION ADMINISTRATOR) Pathologist [facility] Immunoglobulin A 56(L) 70 - 320 mg/dL [facility] [place] Blood specimen (specimen) 05/29/2019 10:14 AM CONSTRUCTION ADMINISTRATOR 05/29/2019 10:20 AM CONSTRUCTION ADMINISTRATOR Narrative Resulting Agency Comment Performing Organization Information: ?Site ID: [place] ?Name: [facility] ?Address: [address] [place] [address] [place] [address] ?Director: Galileo Odom D.O. MPH Akbar Pittman Jr., MD LAB BLOOD ORDERABLES Final Result Performing Organization Address [facility] Co de Phone Number [facility] [place] [facility] [place], [place] * (ABNORMAL) IgG (05/29/2019 10:14 AM CONSTRUCTION ADMINISTRATOR) Immunoglobulin G 337(L) 600 - 1,540 mg/dL [facility] [place] Blood specimen (specimen) 05/29/2019 10:14 AM CONSTRUCTION ADMINISTRATOR 05/29/2019 10:20 AM CONSTRUCTION ADMINISTRATOR Narrative Resulting Agency Comment Performing Organization Information: ?Site ID: [id number] ?Name: [facility] ?Address: [facility] [place] [address] ?Director: Galileo Odom D.O. MPH Akbar Pittman Jr., MD LAB BLOOD ORDERABLES Final Result Performing Organization Address [facility] Co de Phone Number [facility] [place] * (ABNORMAL) Beta 2 microglobulin, serum (05/29/2019 10:14 AM CONSTRUCTION ADMINISTRATOR) Beta 2 Microglobulin, Serum 2.85(H) < OR = 2.51 mg/L [facility] [place] Blood specimen (specimen) 05/29/2019 10:14 AM CONSTRUCTION ADMINISTRATOR 05/29/2019 10:20 AM CONSTRUCTION ADMINISTRATOR Narrative Resulting Agency Comment Performing Organization Information: ?Site ID: [place] ?Name: [facility] ?Address: [facility] [place] [address] ?Director: Galileo Odom D.O., MPH Akbar Pittman Jr., MD LAB BLOOD ORDERABLES Final Result Performing Organization Address [facility] Co de Phone Number [facility] [place] * (ABNORMAL) KAPPA/LAMBDA LIGHT CHAINS FREE WITH RATIO, SERUM (05/29/2019 10:14 AM CONSTRUCTION ADMINISTRATOR) [place] light chain, free 121.8(H) 3.3 - 19.4 mg/L [facility] [place] Lambda light chain, free 6.6 5.7 - 26.3 mg/L [facility] [place]/Lambda light chains free with ratio 18.45(H) 0.26 [...] disorders. Blood specimen (specimen) 05/29/2019 10:14 AM CONSTRUCTION ADMINISTRATOR 05/29/2019 10:20 AM CONSTRUCTION ADMINISTRATOR Narrative Resulting Agency Comment Performing Organization Information: ?Site ID: [place] ?Name: [employer] [facility] ?Address: [address] [place] [address] ?Director: Galileo Odom D.O., DARWIN Akbar Pittman Jr., MD LAB BLOOD ORDERABLES Final Result [facility] [place] * (ABNORMAL) CBC with auto differential (05/29/2019 10:14 AM CONSTRUCTION ADMINISTRATOR) WBC 4.6 3.8 - 10.8 Thousand/ uL [...] ancillary. Blood specimen (specimen) 05/29/2019 10:14 AM CONSTRUCTION ADMINISTRATOR 05/29/2019 10:20 AM CONSTRUCTION ADMINISTRATOR Narrative Resulting Agency Comment Performing Organization Information: ?Site ID: [place] ?Name: [facility] ?Address: [address] [place], [place] [address] [address] ?Director: Galileo Odom D.O., MPH us Akbar Pittman Jr., MD LAB BLOOD ORDERABLES Final Result [facility] [place] * (ABNORMAL) Comprehensive metabolic panel (05/29/2019 10:14 AM CONSTRUCTION ADMINISTRATOR) Glucose 132(H) 65 - 99 mg/dL [facility] [place] Comment: ? Fasting reference interval For someone without known diabetes, a glucose value >125 mg/dL indicates that they may have diabetes and this should be confirmed with a follow-up test. BUN 18 7 - 25 mg/dL [facility] [place] Creatinine 0.91 0.60 - 0.93 mg/dL [facility] [place] Comment: For patients >49 years of age, the reference limit for Creatinine is approximately 13% higher for people identified as -Georgian. eGFR NON-AFR. PERUVIAN 60 > OR = 60 mL/min/1 .73m2 [facility] [place] EGFR 70 > OR = 60 mL/min/1 .73m2 [facility] [place] BUN/creat ratio NOT APPLICABLE [...] [place] Blood specimen (specimen) 05/29/2019 10:14 AM CONSTRUCTION ADMINISTRATOR 05/29/2019 10:20 AM CONSTRUCTION ADMINISTRATOR Narrative Resulting Agency Comment Performing Organization Information: ?Site ID: [email or web address] ?Name: [facility] ?Address: [address] [place] [address] ?Director: Galileo Odom D.O., MPH us Akbar [...] 03/06/2019 documented in this encounter Care Teams Delivery Of Shopping News Relationship Specialty Start Date End Date Yosi Whaley MD [address] [place] [address] PCP - General 03/08/13 07/13/19 documented as of this encounter
--- OUTSIDE RECORDS SUMMARY | 2024-06-28 17:13 | XMS_ITS | Encounter Summary ---
Author Organization [facility] Address [address] [place] [address] Care Team Providers Care Brake Reliner Name Role Phone Yosi Whaley MD Primary Care Provider [phone] Yosi Whaley MD Unavailable Encounter Details Date Type Department Care Team (Late st Contact Info) Description 08/16/2020 Telephone [facility] Cardiology [address] [place] [address] Syed Almonte MD [address] [facility] [address] [place] [address] Social History Tobacco Use Types Packs/Day Years [...] on file Legal Sex Female 3:01 AM SALON LEADER Gender Identity Female 06/07/2020 11:17 AM SALON LEADER Sexual Orientation Straight 06/07/2020 11 :17 AM SALON LEADER documented as of this encounter Miscellaneous Notes * Telephone Encounter - Camila Giang RN - 08/16/2020 8:54 AM SALON LEADER Spoke with pt, she asked if she needed PCN before a teeth cleaning and I told her no, she wanted tomake us aware that her shingles are back and she is having some tingling pain with it, and she wanted to report the she has weird blood and she is at a higher risk to get multiple myeloma. N LEADER * Telephone Encounter - Margaret Case - 08/16/2020 8:17 AM CST Pt called to report that she covid in late May 2020 into early Jun 2020 Pt states the the covid virus reactivated her shingles. Pt requested a return call to discuss. [phone] N LEADER documented in this encounter Plan of Treatment Not on file documented as of this encounter Visit Diagnoses Not on filedocumented in this encounter Care Teams Brake Reliner Relationship Specialty Start Date End Date Yosi Whaley MD [address] [place] [address] PCP - General 07/14/19 02/03/23 Yosi Whaley MD [address] [place] [address] 07/14/19 02/03/23 documented as of this encounter
--- OUTSIDE RECORDS SUMMARY | 2024-06-28 17:13 | XMS_ITS | Encounter Summary ---
Author Organization [facility] Address [address] [place] [address] Phone Care Team Providers Care Hand Roller Engraver Name Role Phone Yosi Whaley MD Primary Care Provider [phone] Yosi Whaley MD Unavailable Encounter Details Date Type Department Care Team (Late st Contact Info) Description 07/19/2019 Orders Only [facility] Oncology [address] [place] [id number] Jennifer Ceja, RN Multiple myeloma not having [...] on file Legal Sex Female 3:01 AM ELEVATOR CONSTRUCTOR HYDRAULIC Gender Identity Female 06/07/2020 11:17 AM ELEVATOR CONSTRUCTOR HYDRAULIC Sexual Orientation Straight 06/07/2020 11 :17 AM ELEVATOR CONSTRUCTOR HYDRAULIC documented as of this encounter Miscellaneous Notes [...] CDT) IgG 409(L) 700 - 1,600 mg/dL [facility] Blood specimen (specimen) 09/11/2019 10:22 AM CDT 09/11/2019 10:28 AM CDT Narrative Resulting Agency Comment RCR us Akbar Pittman Jr., MD LAB BLOOD ORDERABLES Final Result Performing Organization Address [facility] Co de Phone Number [address] [phone] * (ABNORMAL) IgA (09/11/2019 10:22 AM CDT) IgA 55(L) 70 - 400 mg/dL [facility] Blood specimen (specimen) 09/11/2019 10:22 AM CDT 09/11/2019 10:28 AM CDT Narrative Resulting Agency Comment RCR Akbar Pittman Jr., MD LAB BLOOD ORDERABLES Final Result Performing Organization Address [facility] de Phone Number [address] [phone] * (ABNORMAL) IgM (09/11/2019 10:22 AM CDT) IgM 23(L) 40 - 230 mg/dL [facility] Blood specimen (specimen) 09/11/2019 10:22 AM CDT 09/11/2019 10:28 AM CDT Narrative Resulting Agency Comment RCR Akbar Pittman Jr., MD LAB BLOOD ORDERABLES Final Result Performing Organization Address [facility] de Phone Number [address] [phone] * (ABNORMAL) Beta 2 microglobulin, serum (09/11/2019 10:22 AM CDT) Beta 2 Microglobulin, Serum 3.3(H) 0.0 - 3.0 mg/l [facility] Blood specimen (specimen) 09/11/2019 10:22 AM CDT 09/11/2019 10:28 AM CDT Narrative Resulting Agency Comment RCR Akbar Pittman Jr., MD LAB BLOOD ORDERABLES Final Result Performing Organization Address City/[facility]/[place]IP [place] [address], [facility] [phone] * (ABNORMAL) CBC with auto differential (09/11/2019 10:22 AM CDT) WBC 5.2 3.8 - 9.9 X10 3/ul [facility] RBC 4.03 3.90 - 5.20 x10 6/ul [facility] Hemoglobin 11.9 11.9 - 15.5 g/dL [facility] Hct 36.9 35.6 - 45.5 % [facility] MCV 91.6 81.3 - 96.4 [facility] MCH 29.5 27.1 - 33.[address] [facility] MCHC 32.2(L) 32.3 - 35.7 g/dl [facility] RDW 15.6(H) 11.1 - 14.9 % [facility] Plt Count 306 150 - 400 x10 3/ul [facility] MPV 9.4 9.1 - 12.3 [facility] Neut % 53.0 % [facility] Immature Gran % 0.4 % [facility] Lymph % 32.9 % [facility] Elbert % 10.6 % [facility] Eos % 2.7 % [facility] AUTO BASO % 0.4 % [facility] NEUTROPHIL ABS # 2.7 1.7 - 6.5 x10 3/ul [facility] Immature Gran # 0.0 0.0 - 0.1 x10 3/ul [facility] Absolute Lymphs (auto) 1.7 0.8 - 3.3 x10 3/ul [facility] Absolute Monos (auto) 0.6 0.2 - 0.8 x10 3/ul [facility] Absolute Eos (auto) 0.1 0.0 - 0.5 x10 3/ul [facility] BASOPHIL ABS # 0.0 0.0 - 0.1 x10 3/ul [facility] Nucleat RBC Rel Count 0.0 #/100WBC [facility] NRBC abs 0.00 0.00 - 0.01 x10 3/ul [facility] Absolute Neutrophils 2,700 200 - 8,000 /ul [facility] Blood specimen (specimen) 09/11/2019 10:22 AM CDT 09/11/2019 10:28 AM CDT Narrative Resulting Agency Comment RCR Akbar Pittman Jr., MD LAB BLOOD ORDERABLES Final Result Performing Organization Address City/[facility]/ZIP Co de Phone Number [facility] [address] [address] * (ABNORMAL) KAPPA/LAMBDA LIGHT CHAINS FREE WITH RATIO, SERUM (09/11/2019 10:22 AM CDT) Free [place] LC, Quant 145.00(A) 3.30 - 19.40 mg/L [facility] Free Lambda LC, Quant 6.98 5.71 - 26.30 mg/L [facility] Free [place]/Lambda Ratio 20.77(A) 0.26 - 1.65 [employer] Comment: Performed by [facility], [address] [place] [address] [email or web address], Jean-Paul Ramirez MD, Lab. Director Blood specimen (specimen) 09/11/2019 10:22 AM CDT 09/11/2019 10:28 AM CDT Narrative Resulting Agency Comment RCR Akbar Pittman Jr., MD LAB BLOOD ORDERABLES Final Result Performing Organization Address City/[facility] Co de Phone Number [employer] [address] [place] [address], [facility] [phone] * Comprehensive metabolic panel (09/11/2019 10:22 AM CDT) Sodium 140 135 - 145 mmol/L [facility] Potassium 3.8 3.3 - 5.1 mmol/L [facility] Chloride 97 96 - 108 mmol/L [facility] Carbon Dioxide 29 22 - 32 mmol/L [facility] Anion Gap 14 7 - 16 [facility] Glucose 96 70 - 100 mg/dL [facility] BUN 15 8 - 25 mg/dL [facility] Creatinine 0.7 0.5 - 1.1 mg/dL [facility] Comment: NOTE: Estimated GFR (Cockroft-Gault) will NOT be calculated unless patient Height and Weight were entered. Also, Kidney Disease Stage (GFR) and Estimated GFR (Cockroft-Gault) will NOT be calculated if Creatinine result is <0.2. Kidney Disease Stage 86 mL/MIN [facility] Comment: NOTE; ??The GFR is an estimated [...] dialysis Calcium 10.1 8.6 - 10.3 mg/dL [facility] Total Protein 7.4 6.4 - 8.3 g/dL [facility] Albumin 4.7 3.5 - 5.0 g/dL [facility] Globulin 2.7 2.3 - 3.5 gm/dL [facility] Albumin/Globulin Ratio 1.7 1.1 - 1.8 [facility] Total Bilirubin 0.2 0.0 - 1.2 mg/dL [facility] AST 22 0 - 32 U/L [facility] ALT 19 0 - 33 U/L [facility] Alkaline Phosphatase 74 35 - 104 U/L [facility] Blood specimen (specimen) 09/11/2019 10:22 AM CDT 09/11/2019 10:28 AM CDT Narrative Resulting Agency Comment RCR us kAbar Pittman Jr., MD LAB BLOOD ORDERABLES Final Result [facility] [address] [place] [address] documented in this encounter Visit Diagnoses Diagnosis Multiple myeloma not having achieved remission (CMS/HCC) (HCC)- Primary documented in this encounter Orders Appointment Requests Count Last Ordered Date Fi rst Ordered Date ONCBCN LAB APPOINTMENT 1 09/11/2019 documented in this encounter Care Teams Hand Roller Engraver Relationship Specialty Start Date End Date Yosi Whaley MD [address] [place] [address] PCP - General 07/14/19 02/03/23 Yosi Whaley MD [address] [place] [address] 07/14/19 02/03/23 documented as of this encounter
--- OUTSIDE RECORDS SUMMARY | 2024-06-28 17:13 | XMS_ITS | Encounter Summary ---
Author Organization [facility] Address [address] [place] [address] Phone Care Team Providers Care Deputy Chief Magistrate Name Role Phone Yosi Whaley MD Primary Care Provider [phone] Yosi Whaley MD Unavailable Encounter Details Date Type Department Care Team (Late st Contact Info) Description 07/20/2019 Telephone [facility] [address] [place] [phone] Barbara Roche BSN Social History Tobacco Use [...] on file Legal Sex Female 3:01 AM FREELANCE RECRUITER Gender Identity Female 06/07/2020 11:17 AM FREELANCE RECRUITER Sexual Orientation Straight 06/07/2020 11 :17 AM FREELANCE RECRUITER documented as of this encounter Miscellaneous Notes * Telephone Encounter - Barbara Roche BSN - 07/20/2019 9:00 AM FREELANCE RECRUITER Spoke with patient regarding appointment date and time Patient v/u LANCE RECRUITER * Telephone Encounter - Barbara Roche BSN - 07/20/2019 9:00 AM FREELANCE RECRUITER ----- Message from Jennifer Ceja RN sent at 07/19/2019 5:03 PM FREELANCE RECRUITER ----- Please salvador and schedule f/u appt with lab draw as ordered. Thanks, Denae LANCE RECRUITER documented in this encounter Plan of Treatment Not on file documented as of this encounter Visit Diagnoses Not on filedocumented in this encounter Care Teams Deputy Chief Magistrate Relationship Specialty Start Date End Date Yosi Whaley MD [address] [place] [address] PCP - General 07/14/19 02/03/23 Yosi Whaley MD [address] [place] [address] 07/14/19 02/03/23 documented as of this encounter
--- OUTSIDE RECORDS SUMMARY | 2024-06-28 17:13 | XMS_ITS | Encounter Summary ---
Author Organization [facility] Address [address] [place] [address] Phone Care Team Providers Care Telegraph Service Rater Name Role Phone Yosi Whaley MD Primary Care Provider [phone] Encounter Details Date Type Department Care Team (Late st Contact Info) Description 06/19/2019 Telephone [facility] Oncology [address] [place] [phone] Jennifer Ceja, RN Social History Tobacco Use [...] on file Legal Sex Female 3:01 AM COB SAWYER Gender Identity Female 06/07/2020 11:17 AM COB SAWYER Sexual Orientation Straight 06/07/2020 11 :17 AM COB SAWYER documented as of this encounter Miscellaneous Notes * Telephone Encounter - Iraida Christianson MA - 06/26/2019 8:40 AM CST Patient called to report that she was seen at ER and was given pain medication and an injection; was told it was arthritis. Pain has not subsided. Patient advised to follow up and discuss with PCP. Pt verbalized understanding. SAWYER * Telephone Encounter - Jennifer Ceja RN [...] back. She will go to ER at [place]. SAWYER SAWYER documented in this encounter Plan of Treatment Not on file documented as of this encounter Visit Diagnoses Not on filedocumented in this encounter Care Teams Telegraph Service Rater Relationship Specialty Start Date End Date Yosi Whaley MD [address] [place] [address] PCP - General 03/08/13 07/13/19 documented as of this encounter
--- OUTSIDE RECORDS SUMMARY | 2024-06-28 17:13 | XMS_ITS | Encounter Summary ---
Author Organization [facility] Address [address] [place] [address] Care Team Providers Care Fish Hatchery Superintendent Name Role Phone Yosi Whaley MD Primary Care Provider [phone] Yosi Whaley MD Unavailable Encounter Details Date Type Department Care Team (Late st Contact Info) Description 07/08/2020 Orders Only [facility] Cardiology [address] [place] [address] Tiffani Back NP [address] [place] [address] History of 2019 novel coronavirus [...] on file Legal Sex Female 3:01 AM PATROL SUPERVISOR Gender Identity Female 06/07/2020 11:17 AM PATROL SUPERVISOR Sexual Orientation Straight 06/07/2020 11 :17 AM PATROL SUPERVISOR documented as of this encounter Plan of Treatment Not on file documented as of this encounter Visit Diagnoses Diagnosis History of 2019 novel coronavirus disease (COVID-19) documented in this encounter Orders EKG Orders Without Results Count Last Ordered D ate First Ordered Date ECG 12-LEAD 1 07/08/2020 documented in this encounter Care Teams Fish Hatchery Superintendent Relationship Specialty Start Date End Date Yosi Whaley MD [address] [place] [address] PCP - General 07/14/19 02/03/23 Yosi Whaley MD [address] [place] [address] 07/14/19 02/03/23 documented as of this encounter
--- OUTSIDE RECORDS SUMMARY | 2024-06-28 17:13 | XMS_ITS | Encounter Summary ---
Author Organization [facility] Facility Care Team Providers Care Manager Nicu Name Role Phone Yosi Whaley MD Primary Care Provider [phone] Encounter Details Date Type Department Care Team [...] on file Legal Sex Female 3:01 AM LEAD SALES CONSULTANT Gender Identity Female 06/07/2020 11:17 AM LEAD SALES CONSULTANT Sexual Orientation Straight 06/07/2020 11 :17 AM LEAD SALES CONSULTANT documented as of this encounter Plan of Treatment Not on file documented as of this encounter Visit Diagnoses Not on filedocumented in this encounter Care Teams Manager Nicu Relationship Specialty Start Date End Date Yosi Whaley MD [address] [place] [address] PCP - General 03/08/13 07/13/19 documented as of this encounter
--- OUTSIDE RECORDS SUMMARY | 2024-06-28 17:13 | XMS_ITS | Encounter Summary ---
Author Organization [facility] Address [address] [place] [address] Phone Care Team Providers Care Gardening Supervisor Name Role Phone Yosi Whaley MD Primary Care Provider [phone] Yosi Whaley MD Unavailable Encounter Details Date Type Department Care Team (Late st Contact Info) Description 07/17/2019 Orders Only [facility] Oncology [address] [place] [phone] Akbar Pittman Jr., MD [facility] [place] [address] Multiple myeloma not having achieved [...] on file Legal Sex Female 3:01 AM FUR GRADER Gender Identity Female 06/07/2020 11:17 AM FUR GRADER Sexual Orientation Straight 06/07/2020 11 :17 AM FUR GRADER documented as of this encounter Progress Notes * Tori Mota CMA - 07/17/2019 1:09 PM CST CORRECTION FOR PET CT SCAN PER [place] [id number] WHOLE BODY. GRADER documented in this encounter Plan of Treatment Not on file documented as of this encounter Visit Diagnoses Diagnosis Multiple myeloma, remission status unspecified (HCC) documented in this encounter Care Teams Gardening Supervisor Relationship Specialty Start Date End Date Yosi Whaley MD [address] [place] [address] PCP - General 07/14/19 02/03/23 Yosi Whaley MD [address] [place] [address] 07/14/19 02/03/23 documented as of this encounter
--- OUTSIDE RECORDS SUMMARY | 2024-06-28 17:14 | XMS_ITS | Encounter Summary ---
Author Organization [facility] Facility Care Team Providers Care Lease Administrator Name Role Phone Unavailable Primary Care Provider Unavailabl e Encounter Details Date Type Department Care Team (Late st Contact Info) Description 12/03/2011 2:26 PM CDT - 12/03/2011 4:00 PM T Hospital [facility] [address] [address] Thoracic or lumbosacral neuritis or radiculitis; Lumbosacral spondylosis without myelopathy Social History Tobacco Use Types Packs/Day Years Used Date Smoking Tobacco: Never Assessed Comments Unknown Sex and Gender Information Value Date Recorded Sex Assigned at Not on file Legal Sex Female 3:01 AM MUSIC THEORY TEACHER Gender Identity Female 06/07/2020 11:17 AM MUSIC THEORY TEACHER Sexual Orientation Straight 06/07/2020 11 :17 AM MUSIC THEORY TEACHER documented as of this encounter Plan of Treatment Not on file documented as of this encounter Visit Diagnoses Diagnosis Thoracic or lumbosacral neuritis or radiculitis Thoracic or lumbosacral neuritis or radiculitis, unspecified Lumbosacral spondylosis without myelopathy documented in this encounter
--- OUTSIDE RECORDS SUMMARY | 2024-06-28 17:14 | XMS_ITS | Encounter Summary ---
Author Organization [facility] Facility Care Team Providers Care Rigging Slinger Name Role Phone Unavailable Primary Care Provider Unavailabl e Encounter Details Date Type Department Care Team (Latest Contact Info) Description 10/22/2011 - 10/22/2011 11:59 PM CDT [facility] [address] [place] [address] Localized osteoarthrosis, ankle and foot; Other enthesopathy of ankle and tarsus; Synovitis and tenosynovitis; Corns and callosity Social History Tobacco Use Types Packs/Day Years Used Date Smoking Tobacco: Never Assessed Comments Unknown Sex and Gender Information Value Date Recorded Sex Assigned at Not on file Legal Sex Female 3:01 AM CUSTODIAN Gender Identity Female 06/07/2020 11:17 AM CUSTODIAN Sexual Orientation Straight 06/07/2020 11 :17 AM CUSTODIAN documented as of this encounter Plan of [...]
--- OUTSIDE RECORDS SUMMARY | 2024-06-28 17:14 | XMS_ITS | Encounter Summary ---
Author Organization [facility] Facility Care Team Providers Care Card Table Attendant Name Role Phone Unavailable Primary Care Provider Unavailabl e Encounter Details Date Type Department Care Team (Late st Contact Info) Description 04/14/2012 - 04/14/2012 11:59 PM CDT Hospital Encounter [facility] Re Schrader MD [address] [place] [address] Pain in soft tissues of limb; Localized osteoarthrosis, ankle and foot; Calcium deposits in tendon and bursa Social History Tobacco Use Types Packs/Day Years Used Date Smoking Tobacco: Never Assessed Comments Unknown Sex and Gender Information Value Date Recorded Sex Assigned at Not on file Legal Sex Female 3:01 AM WIND FARM OPERATIONS MANAGER Gender Identity Female 06/07/2020 11:17 AM WIND FARM OPERATIONS MANAGER Sexual Orientation Straight 06/07/2020 11 :17 AM WIND FARM OPERATIONS MANAGER documented as of this encounter Plan of Treatment Not on file documented as of this encounter Visit Diagnoses Diagnosis Pain in soft tissues of limb Localized osteoarthrosis, ankle and foot Localized osteoarthrosis not specified whether primary or secondary, ankle and foot Calcium deposits in tendon and bursa documented in this encounter
--- OUTSIDE RECORDS SUMMARY | 2024-06-28 17:14 | XMS_ITS | Encounter Summary ---
Author Organization [facility] Facility Care Team Providers Care Sand Plant Attendant Name Role Phone Unavailable Primary Care Provider Unavailabl e Encounter Details Date Type Department Care Team (Latest Contact Info) Description 11/04/2011 - 11/04/2011 11:59 PM CDT Hospital Encounter [facility] Betsy Campos DO [address] [place] [address] Low back pain; Disturbance of skin sensation; Degeneration of lumbar or lumbosacral intervertebral disc Social History Tobacco Use Types Packs/Day Years Used Date Smoking Tobacco: Never Assessed Comments Unknown Sex and Gender Information Value Date Recorded Sex Assigned at Not on file Legal Sex Female 3:01 AM WASTEWATER PROCESS ENGINEER Gender Identity Female 06/07/2020 11:17 AM WASTEWATER PROCESS ENGINEER Sexual Orientation Straight 06/07/2020 11 :17 AM WASTEWATER PROCESS ENGINEER documented as of this encounter Plan of Treatment Not on file documented as of this encounter Visit Diagnoses Diagnosis Low back pain Lumbago Disturbance of skin sensation Degeneration of lumbar or lumbosacral intervertebral disc documented in this encounter
--- OUTSIDE RECORDS SUMMARY | 2024-06-28 17:14 | XMS_ITS | Encounter Summary ---
Author Organization [facility] Facility Care Team Providers Care Ve Teacher Name Role Phone Unavailable Primary Care Provider Unavailabl e Encounter Details Date Type Department Care Team (Late st Contact Info) Description 11/13/2011 - 11/13/2011 11:59 PM CDT Hospital Encounter [facility] Sana Ford Pain in joint, ankle and foot; Osteoarthrosis, ankle and foot; Exostosis; Hallux rigidus; Tenosynovitis of foot and ankle Social History Tobacco Use Types Packs/Day Years Used Date Smoking Tobacco: Never Assessed Comments Unknown Sex and Gender Information Value Date Recorded Sex Assigned at Not on file Legal Sex Female 3:01 AM OINTMENT MILL TENDER Gender Identity Female 06/07/2020 11:17 AM OINTMENT MILL TENDER Sexual Orientation Straight 06/07/2020 11 :17 AM OINTMENT MILL TENDER documented as of this encounter Plan of Treatment Not on file documented as of this encounter Visit Diagnoses Diagnosis Pain in joint, ankle and foot Osteoarthrosis, ankle and foot Osteoarthrosis, unspecified whether generalized or localized, ankle and foot Exostosis Exostosis of unspecified site Hallux rigidus Tenosynovitis of foot and ankle documented in this encounter
--- OUTSIDE RECORDS SUMMARY | 2024-06-28 17:14 | XMS_ITS | Encounter Summary ---
Author Organization [facility] Facility Care Team Providers Care Supply Officer Name Role Phone Unavailable Primary Care Provider Unavailabl e Encounter Details Date Type Department Care Team (Late st Contact Info) Description 01/11/2012 10:41 AM CDT - 01/11/2012 4:00 PM T Hospital Encounter [facility] Anila Orozco MD [address] [address] Thoracic or lumbosacral neuritis or radiculitis Social History Tobacco Use Types Packs/Day Years Used Date Smoking Tobacco: Never Assessed Comments Unknown Sex and Gender Information Value Date Recorded Sex Assigned at Not on file Legal Sex Female 3:01 AM CLINICAL WRITER Gender Identity Female 06/07/2020 11:17 AM CLINICAL WRITER Sexual Orientation Straight 06/07/2020 11 :17 AM CLINICAL WRITER documented as of this encounter Plan of Treatment Not on file documented as of this encounter Visit Diagnoses Diagnosis Thoracic or lumbosacral neuritis or radiculitis Thoracic or lumbosacral neuritis or radiculitis, unspecified documented in this encounter
--- OUTSIDE RECORDS SUMMARY | 2024-06-28 17:14 | XMS_ITS | Encounter Summary ---
Author Organization [facility] Address [address] [place] [address] Phone Care Team Providers Care Dry Sander Name Role Phone Yosi Whlaey MD Primary Care Provider [phone] Reason for Visit * Reason Comments Consult * Consultation (Routine) - Closed Specialty Diagnoses / Procedures Referred By Contac t Referred To Contact Oncology Diagnoses Multiple myeloma, remission status unspecified (HCC) No, Physician Phone: tel: [facility] [address] [facility] 7th [place] [address] [place] [address] Phone: tel: fax: Referral ID Status Reason Start Date Expiration Date V isits Requested Visits Authorized [id number] Closed Specialty Services Required 08/19/2018 06/20/2024 99 [phone] Encounter Details Date Type Department Care Team (Late st Contact Info) Description 08/29/2018 2:30 PM CDT Office Visit [facility] Phys[facility] Oncology [address] [facility] [address] [place] [address] [place] [address] Akbar Pittman Jr., MD [address] [facility] [place] [id number] Anemia, unspecified type (Primary Dx); Multiple myeloma, [...] on file Legal Sex Female 3:01 AM FISH BAIT PROCESSING SUPERVISOR Gender Identity Female 06/07/2020 11:17 AM FISH BAIT PROCESSING SUPERVISOR Sexual Orientation Straight 06/07/2020 11 :17 AM FISH BAIT PROCESSING SUPERVISOR documented as of this encounter Last Filed [...] nasal spray Yes Historical Provider, glucosam velasquez cxy-nsdoviuac-O-Mn [id number] mg capsule Yes Historical Provider, hydroCHLOROthiazide (HYDRODIURIL) [...] (See comments) Sleeps all day ??? Extendryl [Hvyyqwuvumuuyaoj-Fr-Yofetjolie] Other (See comments) Hard to awaken ??? [...] Results * TSH (08/29/2018 3:47 PM CDT) [facility] TSH 1.790 0.450 - 4.500 uIU/mL [facility] - 01 Blood specimen (specimen) 08/29/2018 3:47 PM CDT 08/29/2018 Narrative [facility] - 08/30/2018 8:08 PM CDT Performed at: ??[address] ??[id number] Vault Teller: Luis Carlos Baldwin PhD, Phone: ??[phone] Akbar Pittman Jr., MD LAB BLOOD ORDERABLES Final Result Performing Organization Address [facility] de Phone Number [facility] - 01 * T4, free (08/29/2018 3:47 PM CDT) [facility] T4,Free(Direct) 1.36 0.82 - 1.77 ng/dL [facility] - 01 Blood specimen (specimen) 08/29/2018 3:47 PM CDT 08/29/2018 Narrative [facility] - 08/30/2018 8:08 PM CDT Performed at: ??01 - [address] ??[id number] Vault Teller: Luis Carlos Baldwin PhD, Phone: ??[phone] Akbar Pittman Jr., MD LAB BLOOD ORDERABLES Final Result Performing Organization Address [facility] Co de Phone Number [facility] - 01 * (ABNORMAL) IMMUNOGLOBULINS (08/29/2018 3:47 PM CDT) [facility] Immunoglobulin G, Qn, Serum 386(L) 700 - 1,600 mg/dL [facility] - 01 Immunoglobulin A, Qn, Serum 52(L) 64 - 422 mg/dL [facility] - 01 Immunoglobulin M, Qn, Serum 31 26 - 217 mg/dL [facility] - 01 Blood specimen (specimen) 08/29/2018 3:47 PM CDT 08/29/2018 Narrative [facility] - 08/30/2018 8:08 PM CDT Performed at: ??01 - [facility] ??[id number] Vault Teller: Luis Carlos Baldwin PhD, Phone: ??[phone] Akbar Pittman Jr., MD LAB BLOOD ORDERABLES [...] scan will follow via computer, mail, or operations logistics analyst delivery. Blood specimen (specimen) 08/29/2018 3:47 PM CDT 08/29/2018 Narrative [facility] - 08/30/2018 8:08 PM CDT Performed at: ??01 - [facility] [address] ??[id number] Vault Teller: Luis Carlos Baldwin PhD, Phone: ??[phone] us Akbar Pittman Jr., MD LAB BLOOD ORDERABLES Final Result Performing Organization Address [facility]/ZIP Co de [facility] - * (ABNORMAL) Lactate dehydrogenase (LD) (08/29/2018 3:47 PM CDT) Lactate dehydrogenase (LDH) 227(H) 119 - 226 IU/L [facility] - Blood specimen (specimen) 08/29/2018 3:47 PM CDT 08/29/2018 Narrative [facility] - 08/30/2018 8:08 PM CDT Performed at: ?? - [address] ??[id number] Vault Teller: Luis Carlos Baldwin PhD, Phone: ??[phone] us Akbar Pittman Jr., MD LAB BLOOD ORDERABLES Final Result Performing Organization Address [facility] de Phone Number [facility] * (ABNORMAL) KAPPA/LAMBDA LIGHT CHAINS FREE WITH RATIO, SERUM (08/29/2018 3:47 PM CDT) Free [place] Lt Chains,S 90.7(H) 3.3 - 19.4 mg/L [facility] - 01 Free Lambda Lt Chains,S 6.6 5.7 - 26.3 mg/L [facility] - 01 [place]/Lambda Ratio,S 13.74(H) 0.26 - 1.65 [facility] - 01 Blood specimen (specimen) 08/29/2018 3:47 PM CDT 08/29/2018 Narrative [facility] - 08/30/2018 8:08 PM CDT Performed at: ?? - [address] ??[id number] Vault Teller: Luis Carlos Baldwin PhD, Phone: ??[phone] us Akbar Pittman Jr., MD LAB BLOOD ORDERABLES Final Result Performing Organization Address [facility] Co de Phone Number [facility] * Comprehensive metabolic panel (08/29/2018 [...] PM CDT Performed at: ??01 - [facility] [address] ??[id number] Vault Teller: Luis Carlos Baldwin PhD, Phone: ??[phone] us Akbar Pittman Jr., MD LAB BLOOD [...] T PO QD 2 07/12/2018 glucosam velasquez fai-dqysnjzli-N- [place] [id number] mg capsule fluticasone (FLONASE) 50 mcg/actuation nasal [...] 08/29/2018 documented in this encounter Care Teams Dry Sander Relationship Specialty Start Date End Date Yosi Whaley MD [address] [place] [address] PCP - General 03/08/13 07/13/19 documented as of this encounter
--- OUTSIDE RECORDS SUMMARY | 2024-06-28 17:16 | XMS_ITS | Encounter Summary ---
Author Organization [facility] [employer] Address [address] [place] [address] Care Team Providers Care Stencil Maker Name Role Phone Elvis Lopez MD Primary Care Provider [phone] Reason for Visit * Reason Comments Med Refill Encounter Details Date Type Department Care Team ([facility] Contact Info) Description 05/11/2024 Refill [facility] Oncology and Hematology [facility] [address] [place] [address] Luda Linn MD [address] [place] [address] Multiple myeloma not having achieved [...] (Late Contact Info) Description 07/14/2024 9:00 AM MUNITIONS WORKER Office Visit [facility] Oncology and Hematology [facility] [address] [place] [address] Brant Ratliff MD [address] [facility] [employer] [address] [place] [address] documented as of this encounter Visit Diagnoses Diagnosis Multiple myeloma not having achieved remission Multiple myeloma, without mention of having achieved remission documented in this encounter Care Teams Stencil Maker Relationship Specialty Start Date End Date Elvis Lopez MD [address] [facility] [place] [address] [place] [address] PCP - General Family Practice 02/03/24 documented as of this encounter
--- OUTSIDE RECORDS SUMMARY | 2024-06-28 17:16 | XMS_ITS | Encounter Summary ---
Author Organization [facility] [employer] Address [address] [place] [address] Care Team Providers Care General Teller Name Role Phone Elvis Lopez MD Primary Care Provider [phone] Encounter Details Date Type Department Care Team (Late st Contact Info) Description 05/08/2024 Orders Only [facility] Oncology and [facility] [address] [place] [address] Brant Ratliff MD [facility] [employer] [address] [place] [address] Multiple myeloma not having achieved remission; [...] st Contact Info) Description 07/14/2024 9:00 AM HOMEOPATHIC DOCTOR Office Visit [facility] Oncology and [facility] [address] [place] [address] Brant Ratliff MD [address] [employer] [address] [place] [address] documented as of this encounter Visit Diagnoses Diagnosis Multiple myeloma not having achieved remission Multiple myeloma, without mention of having achieved remission Benign hypertension Essential hypertension, benign documented in this encounter Care Teams General Teller Relationship Specialty Start Date End Date Elvis Lopez MD [address] [facility] [place] [address] [place] [phone] PCP - General Family Practice 02/03/24 documented as of this encounter
--- OUTSIDE RECORDS SUMMARY | 2024-06-28 17:16 | XMS_ITS | Encounter Summary ---
Author Organization [facility] [employer] Address [address] [place] [address] Care Team Providers Care Marine Equipment Sales Engineer Name Role Phone Elvis Lopez MD Primary Care Provider [phone] Encounter Details Date Type Department Care Team (Late Contact Info) Description 06/06/2024 Orders Only [facility] Oncology and Hematology [facility] [address] [place] [address] Brant Ratliff MD [address] [place], [place] [address] [address] [place] [address] Social History Tobacco Use Types Packs/Day [...] st Contact Info) Description 07/14/2024 9:00 AM AIR HAMMER STRIPPER Office Visit [facility] Oncology and Hematology [place] [address] [place] [address] Brant Ratliff MD [address] [facility] [address] [place] [address] documented as of this encounter Procedures Procedure Name Priority Date/Time Associated Diagnosis Comments BASIC METABOLIC PANEL Routine 06/06/2024 2:18 PM AIR HAMMER STRIPPER CBC WITH DIFFERENTIAL Routine 06/06/2024 2:17 PM AIR HAMMER STRIPPER documented in this encounter Results * BASIC METABOLIC PANEL (06/06/2024 2:18 PM AIR HAMMER STRIPPER) Blood Brant Ratliff MD CHEMISTRY ORDERABLES * CBC WITH DIFFERENTIAL (06/06/2024 2:17 PM AIR HAMMER STRIPPER) Blood Brant Ratliff MD HEMATOLOGY ORDERABLE S documented in this encounter Visit Diagnoses Not on filedocumented in this encounter Care Teams Marine Equipment Sales Engineer Relationship Specialty Start Date End Date Elvis Lopez MD [facility] [facility] [place] [address] PCP - General Family Practice 02/03/24 documented as of this encounter
--- OUTSIDE RECORDS SUMMARY | 2024-06-28 17:16 | XMS_ITS | Encounter Summary ---
Author Organization [facility] [id number] [facility] Address [address] [place] [address] Care Team Providers Care Venereal Disease Control Head Name Role Phone Elvis Lopez MD Primary Care Provider [phone] Reason for Visit * Reason Comments Chemotherapy Follow Up Encounter Details Date Type Department Care Team (Late st Contact Info) Description 06/06/2024 10:15 AM COAL WASHER TENDER Office Visit [facility] Oncology and Hematology - [place] [address] [place] [address] Brant Ratliff MD [address] [place] [facility] [address] [place] [address] Multiple myeloma not having achieved [...] Comments Blood Pressure 136/83 06/06/2024 10:14 AM COAL WASHER TENDER Pulse 72 06/06/2024 10:14 AM COAL WASHER TENDER Temperature 35.9 ??C (96.7 ??F) 06/06/2024 10:[address] Respiratory Rate 16 06/06/2024 10:14 AM COAL WASHER TENDER Oxygen Saturation 95% 06/06/2024 10:14 AM COAL WASHER TENDER Inhaled Oxygen Concentration - - Weight 98.9 kg (218 lb) 06/06/2024 10:14 AM COAL WASHER TENDER Height - - Body Mass Index 33.15 01/11/2024 10:44 AM CDT documented in this encounter Progress Notes * Brant Ratliff MD - 06/06/2024 12:28 PM CST HEMATOLOGY / ONCOLOGY PROGRESS NOTE Patient Identification: Name: Sloane Elise Age: 83 y.o. 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 Patient has a [...] is on aspirin. 06/06/2024 Brant Ratliff MD WASHER TENDER documented in this encounter Plan of Treatment Upcoming Encounters Date Type Department Care Team (Late st Contact Info) Description 07/14/2024 9:00 AM COAL WASHER TENDER Office Visit [facility] Oncology and Hematology [facility] [address] [facility] [address] [place] [address] Brant Ratliff MD [address] [facility] [address] [place] [address] Scheduled Orders Name Type Priority [...] remission documented in this encounter Care Teams Venereal Disease Control Head Relationship Specialty Start Date End Date Elvis Lopez MD [address] [facility] [place] [phone] PCP - General Family Practice 02/03/24 documented as of this encounter
--- OUTSIDE RECORDS SUMMARY | 2024-06-28 17:16 | XMS_ITS | Encounter Summary ---
Author Organization [facility] [employer] Address [address] [place] [address] Care Team Providers Care Company Secretary Name Role Phone Elvis Lopez MD Primary Care Provider [phone] Encounter Details Date Type Department Care Team (Late Contact Info) Description 05/11/2024 Orders Only [facility] Oncology and Hematology [facility] [address] [place] [address] Brant Ratliff MD [facility] [employer] [address] [place] [address] Social History Tobacco Use Types Packs/Day [...] st Contact Info) Description 07/14/2024 9:00 AM CHAPLAIN RESIDENT Office Visit [facility] Oncology and Hematology [place] [address] [place] [address] Brant Ratliff MD [address] [employer] [address] [place] [address] documented as of this encounter Procedures Procedure Name Priority Date/Time Associated Diagnosis Comments BASIC METABOLIC PANEL Routine 05/09/2024 3:45 PM CHAPLAIN RESIDENT COMPREHENSIVE METABOLIC PANEL Routine 05/09/2024 3:28 PM CHAPLAIN RESIDENT documented in this encounter Results * BASIC METABOLIC PANEL (05/09/2024 3:45 PM CHAPLAIN RESIDENT) Blood Brant Ratliff MD CHEMISTRY ORDERABLES * COMPREHENSIVE METABOLIC PANEL (05/09/2024 3:28 PM CHAPLAIN RESIDENT) Blood Brant Ratliff MD CHEMISTRY ORDERABLES documented in this encounter Visit Diagnoses Not on filedocumented in this encounter Care Teams Company Secretary Relationship Specialty Start Date End Date Elvis Lopez MD [address] [facility] [place] [address] PCP - General Family Practice 02/03/24 documented as of this encounter
--- OUTSIDE RECORDS SUMMARY | 2024-06-28 17:16 | XMS_ITS | Encounter Summary ---
Author Organization [facility] [employer] Address [address] [place] [address] Care Team Providers Care Carton Machine Operator Name Role Phone Elvis Lopez MD Primary Care Provider [phone] Reason for Visit * Reason Comments Med Refill Encounter Details Date Type Department Care Team ([facility] Contact Info) Description 06/19/2024 Refill [facility] Oncology and Hemat[facility] [address] [place] [address] Luda Linn MD [address] [place] [address] Multiple myeloma not having achieved [...] (Late Contact Info) Description 07/14/2024 9:00 AM C SOFTWARE DEVELOPER Office Visit [facility] Oncology and Hematology [facility] [address] [place] [address] Brant Ratliff MD [address] [facility] [employer] [address] [place] [address] documented as of this encounter Visit Diagnoses Diagnosis Multiple myeloma not having achieved remission Multiple myeloma, without mention of having achieved remission documented in this encounter Care Teams Carton Machine Operator Relationship Specialty Start Date End Date Elvis Lopez MD [address] [facility] [place] [address] [place] [phone] PCP - General Family Practice 02/03/24 documented as of this encounter
--- OUTSIDE RECORDS SUMMARY | 2024-06-28 17:16 | XMS_ITS | Encounter Summary ---
Author Organization [facility] [employer] Address [address] [place] [address] Care Team Providers Care Stove Tender Name Role Phone Elvis Lopez MD Primary Care Provider [phone] Reason for Visit * Reason Onset Date Comments Dye Study 05/17/2024 Encounter Details Date Type Department Care Team (Late st Contact Info) Description 05/17/2024 Telephone [facility] Oncology and Hematology [facility] [address] [place] [address] Brant Ratliff MD [address] [place] [address] Dye Study Social History Tobacco [...] It is not working correctly. Orders placed. CTOR VALIDATION documented in this encounter Plan of Treatment Upcoming Encounters Date Type Department Care Team (Late st Contact Info) Description 07/14/2024 9:00 AM DIRECTOR VALIDATION Office Visit [facility] Oncology and Hematology [facility] [address] [place] [address] Brant Ratliff MD [address] [facility] [address] [place] [address] documented as of this encounter Visit Diagnoses Diagnosis Multiple myeloma not having achieved remission- Primary Multiple myeloma, without mention of having achieved remission documented in this encounter Care Teams Stove Tender Relationship Specialty Start Date End Date Elvis Lopez MD [facility] [facility] [place] [address] PCP - General Family Practice 02/03/24 documented as of this encounter
--- OUTSIDE RECORDS SUMMARY | 2024-06-28 17:16 | XMS_ITS | Encounter Summary ---
Author Organization [facility] [employer] Address [address] [place] [address] Care Team Providers Care Direct Care Worker Name Role Phone Elvis Lopez MD Primary Care Provider [phone] Reason for Visit * Reason Comments Med Refill Encounter Details Date Type Department Care Team ([facility] Contact Info) Description 06/01/2024 Refill [facility] Oncology and Hematology [facility] [address] [place] [address] Luda Linn MD [address] [place] [address] Multiple myeloma not having achieved [...] (Late Contact Info) Description 07/14/2024 9:00 AM RUBBER TRIMMER Office Visit [facility] Oncology and Hematology [facility] [address] [place] [address] Brant Ratliff MD [address] [facility] [employer] [address] [place] [address] documented as of this encounter Visit Diagnoses Diagnosis Multiple myeloma not having achieved remission Multiple myeloma, without mention of having achieved remission documented in this encounter Care Teams Direct Care Worker Relationship Specialty Start Date End Date Elvis Lopez MD [address] [facility] [place] [address] [place] [phone] PCP - General Family Practice 02/03/24 documented as of this encounter
--- OUTSIDE RECORDS SUMMARY | 2024-06-28 17:16 | XMS_ITS | Encounter Summary ---
Author Organization [facility] [employer] Address [address] [place] [address] Care Team Providers Care Marketing Executive Name Role Phone Elvis Lopez MD Primary Care Provider [phone] Encounter Details Date Type Department Care Team (Late Contact Info) Description 05/25/2024 Abstract [facility] Oncology [facility] [address] [place] [address] Brant Ratliff MD [address] [place], [place] [address] [address] [place] [address] Social History Tobacco Use Types Packs/Day [...] st Contact Info) Description 07/14/2024 9:00 AM ASSISTANT PROFESSOR OF FORESTRY Office Visit [facility] Oncology [facility] [address] [place] [address] Brant Ratliff MD [address] [employer] [address] [place] [address] documented as of this encounter Visit Diagnoses Not on filedocumented in this encounter Care Teams Marketing Executive Relationship Specialty Start Date End Date Elvis Lopez MD [address] [place] [address] [place] [address] PCP - General Family Practice 02/03/24 documented as of this encounter
--- OUTSIDE RECORDS SUMMARY | 2024-06-28 17:16 | XMS_ITS | Encounter Summary ---
Author Organization [facility] [employer] Address [address] [place] [address] Care Team Providers Care Social Media Intern Name Role Phone Elvis Lopez MD Primary Care Provider [phone] Encounter Details Date Type Department Care Team (Late st Contact Info) Description 06/19/2024 Orders Only [facility] Oncology and [facility] [address] [place] [address] Brant Ratliff MD [facility] [employer] [address] [place] [address] Multiple myeloma not having achieved remission; [...] st Contact Info) Description 07/14/2024 9:00 AM COILED COIL INSPECTOR Office Visit [facility] Oncology and [facility] [address] [place] [address] Brant Ratliff MD [address] [employer] [address] [place] [address] documented as of this encounter Visit Diagnoses Diagnosis Multiple myeloma not having achieved remission Multiple myeloma, without mention of having achieved remission Benign hypertension Essential hypertension, benign documented in this encounter Care Teams Social Media Intern Relationship Specialty Start Date End Date Elvis Lopez MD [address] [facility] [phone] PCP - General Family Practice 02/03/24 documented as of this encounter
--- OUTSIDE RECORDS SUMMARY | 2024-06-28 17:16 | XMS_ITS | Encounter Summary ---
Author Organization [facility] [employer] Address [address] [place] [address] Care Team Providers Care Utility Bill Complaints Investigator Name Role Phone Elvis Lopez MD Primary Care Provider [phone] Encounter Details Date Type Department Care Team (Late Contact Info) Description 05/24/2024 Orders Only [facility] Oncology and Hematology [facility] [address] [place] [address] Brant Ratliff MD [address] [place], [place] [address] [address] [place] [address] Social History Tobacco Use Types Packs/Day [...] st Contact Info) Description 07/14/2024 9:00 AM SUPERVISOR PAPER COATING Office Visit [facility] Oncology and Hematology [place] [address] [place] [address] Brant Ratliff MD [facility] [employer] [address] [place] [address] documented as of this encounter Procedures Procedure Name Priority Date/Time Associated Diagnosis Comments COMPREHENSIVE METABOLIC PANEL Routine 05/23/2024 12:54 PM SUPERVISOR PAPER COATING CBC WITH DIFFERENTIAL Routine 05/23/2024 10:45 AM SUPERVISOR PAPER COATING BASIC METABOLIC PANEL Routine 05/23/2024 9:48 AM SUPERVISOR PAPER COATING documented in this encounter Results * COMPREHENSIVE METABOLIC PANEL (05/23/2024 12:54 PM SUPERVISOR PAPER COATING) Blood Brant Ratliff MD CHEMISTRY ORDERABLES * CBC WITH DIFFERENTIAL (05/23/2024 10:45 AM SUPERVISOR PAPER COATING) Blood Brant Ratliff MD HEMATOLOGY ORDERABLE S * BASIC METABOLIC PANEL (05/23/2024 9:48 AM SUPERVISOR PAPER COATING) Blood Brant Ratliff MD CHEMISTRY ORDERABLES documented in this encounter Visit Diagnoses Not on filedocumented in this encounter Care Teams Utility Bill Complaints Investigator Relationship Specialty Start Date End Date Elvis Lopez MD [address] [facility] [place] [address] PCP - General Family Practice 02/03/24 documented as of this encounter
--- OUTSIDE RECORDS SUMMARY | 2024-06-28 17:16 | XMS_ITS | Encounter Summary ---
Author Organization [facility] [employer] Address [address] [place] [address] Care Team Providers Care Pulper Name Role Phone Elvis Lopez MD Primary Care Provider [phone] Encounter Details Date Type Department Care Team (Late st Contact Info) Description 06/05/2024 Orders Only [facility] Oncology and [facility] [address] [place] [address] Brant Ratliff MD [facility] [employer] [address] [place] [phone] Multiple myeloma not having achieved remission; [...] st Contact Info) Description 07/14/2024 9:00 AM PROGRAMMER OR ANALYST Office Visit [facility] Oncology and [facility] [address] [place] [address] Brant Ratliff MD [address] [employer] [address] [place] [phone] documented as of this encounter Visit Diagnoses Diagnosis Multiple myeloma not having achieved remission Multiple myeloma, without mention of having achieved remission Benign hypertension Essential hypertension, benign documented in this encounter Care Teams Pulper Relationship Specialty Start Date End Date Elvis Lopez MD [address] [facility] [place] [address] [place] [phone] PCP - General Family Practice 02/03/24 documented as of this encounter
--- OUTSIDE RECORDS SUMMARY | 2024-06-28 17:16 | XMS_ITS | Encounter Summary ---
Author Organization [facility] [employer] [facility] Address [address] [place] [address] Care Team Providers Care Aircraft Air Conditioning Mechanic Name Role Phone Elvis Lopez MD Primary Care Provider [phone] Reason for Referral * Eval and Treat (Routine) - Open Specialty Diagnoses / Procedures Referred By Sharlene uriarte Referred To Contact Surgery Diagnoses Multiple myeloma not having achieved remission Procedures DC OFFICE/OUTPATIENT ESTABLISHED MOD MDM 30 MIN DC OFFICE/OUTPATIENT NEW MODERATE MDM 45 MINUTES Brant Ratliff MD [address] [employer] [address] [place] [address] [place] [id number] Referral ID Status Reason Start Date Expiration Date V isits Requested Visits Authorized [id number] Open ST[facility] CTS 05/29/2024 05/29/2025 1 1 NDER DYER Encounter Details Date Type Department Care Team (Late st Contact Info) Description 05/29/2024 Orders Only [facility] Oncology and Hematology [facility] Raphael Irwin [facility] [address] [place] [address] Brant Ratliff MD [address] [employer] [address] [place] [address] Multiple myeloma not having achieved [...] st Contact Info) Description 07/14/2024 9:00 AM CYLINDER DYER Office Visit [facility] Oncology and Hematology [facility] [address] [facility] [address] [place] [address] Brant Ratliff MD [address] [facility] [address] [place] [address] Scheduled Referrals Name Type Priority Associated Diagnoses Orde r Schedule AMB REFERRAL TO GENERAL SURGERY Outpatient Referral Routine Multiple myeloma not having achieved remission Ordered: 05/29/2024 documented as of this encounter Procedures Procedure Name Priority Date/Time Associated Diagnosis Comments XR PORT CONTRAST INJECT W FLUORO Routine 05/26/2024 1:55 PM CYLINDER DYER documented in this encounter Results * XR PORT CONTRAST INJECT W FLUORO (05/26/2024 1:55 PM CYLINDER DYER) Anatomical Region Laterality Modality Other Brant Ratliff MD DIAGNOSTIC IMAGING O RDERABLES documented in this encounter Visit Diagnoses Diagnosis Multiple myeloma not having achieved remission- Primary Multiple myeloma, without mention of having achieved remission documented in this encounter Care Teams Aircraft Air Conditioning Mechanic Relationship Specialty Start Date End Date Elvis Lopez MD [address] [facility] [place] [address] PCP - General Family Practice 02/03/24 documented as of this encounter
--- OUTSIDE RECORDS SUMMARY | 2024-06-28 17:16 | XMS_ITS | Encounter Summary ---
Author Organization [facility] [employer] [facility] Address [address] [place] [address] Care Team Providers Care Marriage And Family Social Worker Name Role Phone Elvis Lopez MD Primary Care Provider [phone] Reason for Visit * Reason Comments Chemotherapy Follow Up Encounter Details Date Type Department Care Team (Late st Contact Info) Description 05/16/2024 8:30 AM TAIL BOARD WORKER Office Visit [facility] Oncology and Hematology - [place] [address] [place] [address] Brant Ratliff MD [address] [facility] [address] [place] [address] Multiple myeloma not having achieved [...] Comments Blood Pressure 125/70 05/16/2024 8:46 AM TAIL BOARD WORKER Pulse 84 05/16/2024 8:46 AM TAIL BOARD WORKER Temperature 36.6 ??C (97.8 ??F) 05/16/2024 8:46 AM CS T Respiratory Rate 17 05/16/2024 8:46 AM TAIL BOARD WORKER Oxygen Saturation 95% 05/16/2024 8:46 AM TAIL BOARD WORKER Inhaled Oxygen Concentration - - Weight 99.1 kg (218 lb 6.4 oz) 05/16/2024 8:46 A M TAIL BOARD WORKER Height - - Body Mass Index 33.21 01/11/2024 10:44 AM CDT documented in this encounter Progress Notes * Brant Ratliff MD - 05/16/2024 9:36 AM CST HEMATOLOGY / ONCOLOGY PROGRESS NOTE Patient Identification: Name: Sloane Elise Age: 83 y.o. Sex: female : 1940 DIAGNOSIS [place] multiple myeloma CURRENT TREATMENT [...] Fibromyalgia 11/26/2020 Spondylolisthesis at L4-L5 level 11/26/2020 [place] multiple myeloma. Patient has [...] asymptomatic on aspirin. 05/16/2024 Brant Ratliff MD BOARD WORKER documented in this encounter Plan of Treatment Upcoming Encounters Date Type Department Care Team (Late st Contact Info) Description 07/14/2024 9:00 AM TAIL BOARD WORKER Office Visit [facility] Oncology and Hematology [facility] [address] [facility] [address] [place] [address] Brant Ratliff MD [address] [facility] [address] [place] [address] Scheduled Orders Name Type Priority [...] remission documented in this encounter Care Teams Marriage And Family Social Worker Relationship Specialty Start Date End Date Elvis Lopez MD [facility] [place] [address] PCP - General Family Practice 02/03/24 documented as of this encounter
--- OUTSIDE RECORDS SUMMARY | 2024-06-28 17:16 | XMS_ITS | Encounter Summary ---
Author Organization [facility] [employer] Address [address] [place] [address] Care Team Providers Care Member Services Representative Name Role Phone Elvis Lopez MD Primary Care Provider [phone] Encounter Details Date Type Department Care Team (Late st Contact Info) Description 05/22/2024 Orders Only [facility] Oncology and [facility] [address] [place] [address] Brant Ratliff MD [facility] [email or web address] [address] [place] [address] Multiple myeloma not having achieved remission; [...] Contact Info) Description 07/14/2024 9:00 AM DIRECTOR OF VENDOR MANAGEMENT Office Visit [facility] Oncology and [facility] [address] [place] [address] Brant Ratliff MD [address] [email or web address] [address] [place] [address] documented as of this encounter Visit Diagnoses Diagnosis Multiple myeloma not having achieved remission Multiple myeloma, without mention of having achieved remission Benign hypertension Essential hypertension, benign documented in this encounter Care Teams Member Services Representative Relationship Specialty Start Date End Date Elvis Lopez MD [address] [facility] [place] [address] [place] [phone] PCP - General Family Practice 02/03/24 documented as of this encounter
--- OUTSIDE RECORDS SUMMARY | 2024-06-28 17:16 | XMS_ITS | Clinical Summary ---
Author Organization [employer] Address [address] [place] [address] Care Team Providers Care Supervising Bailiff Name Role Phone Elvis Lopez MD Primary Care Provider [phone] Allergies Active Allergy Reactions Criticality Noted Date Comments Acetaminophen-Pamabrom Unknown 08/29/2018 Alprazolam Other (See Comments) Low 08/29/2018 Sleeps all day Amitriptyline Rash Low 08/29/2018 Sleeps all day Brompheniramine-Phenylephrine Unknown 2018 Carbinoxamine-Pseudoephedrine Unknown 2018 Carboxymethylcellulose Sodium Unknown 2018 Codeine Anxiety Low 11/26/2020 Desloratadine Unknown 08/29/2018 Dextran 70-Hypromellose (Pf) Unknown 019 Diclofenac Unknown 08/29/2018 Doxycycline Monohydrate Unknown 08/29/2018 Ytvtykuwd-Fag-Bp-Acetaminophen Unknown 08/29 Duloxetine Unknown 08/29/2018 Levofloxacin Unknown [...] 1 T PO QD 02/27/2019 Active omega 8-ffw-uyb-fish oil (Fish Oil) 100-160-1,000 mg Capsule Take [...] Take by mouth. Active VIT B COMP NO.7-YFBPT-U-BIO TIN ORAL Take by mouth. Active dextromethorphan [...] Department Care Team Description 06/23/2024 Orders Only [facility] Oncology and Hematology - [place] [address] [place] [address] Brant Ratliff MD 06/22/2024 Orders Only [facility] Oncology and Hematology - [place] [address] [place] [address] Brant Ratliff MD 06/19/2024 Refill [facility] Oncology and Hematology - [place] [address] [place] [address] Luda Linn MD Multiple myeloma not having achieved remission 06/19/2024 Orders Only [facility] Oncology and Hematology - [place] [address] [place] [address] Brant Ratliff MD Multiple myeloma not having achieved remission; Benign hypertension 06/08/2024 Orders Only [facility] Oncology and Hematology - [place] [address] [place] [address] Brant Ratliff MD 06/06/2024 10:15 AM SED MIDDLE SCHOOL TEACHER Office Visit [facility] Oncology and Hematology [facility] [address] [place] [address] Brant Ratliff MD Multiple myeloma not having achieved remission (Primary Dx) 06/06/2024 Orders Only [facility] Oncology and Hematology - [place] Alex [address] [place] [address] Brant Ratliff MD 06/05/2024 Orders Only [facility] Oncology and Hematology - [place] [address] [place] [address] Brant Ratliff MD Multiple myeloma not having achieved remission; Benign hypertension 06/01/2024 Refill [facility] Oncology and Hematology - [place] [address] [place] [address] Luda Linn MD Multiple myeloma not having achieved remission 05/29/2024 Orders Only [facility] Oncology and Hematology - [place] [address] [place] [id number] Brant Ratliff MD Multiple myeloma not having achieved remission (Primary Dx) 05/25/2024 Abstract [facility] Oncology and Hematology - [place] [address] [place] [address] Brant Ratliff MD 05/24/2024 Orders Only [facility] Oncology and Hematology - [place] [address] [place] [address] Brant Ratliff MD 05/23/2024 Orders Only [facility] Oncology and Hematology - [place] [address] [place] [address] Brant Ratliff MD 05/22/2024 Orders Only [facility] Oncology and Hematology - [place] [address] [place] [address] Brant Ratliff MD Multiple myeloma not having achieved remission; Benign hypertension 05/17/2024 Telephone [facility] Oncology and Hematology [facility] [address] [place] [address] Brant Ratliff MD Dye Study 05/16/2024 8:30 AM SED MIDDLE SCHOOL TEACHER Office Visit [facility] Oncology and Hematology [facility] [address] [place] [address] Brant Ratliff MD Multiple myeloma not having achieved remission (Primary Dx) 05/16/2024 Orders Only [facility] Oncology and Hematology [facility] [address] [place] [id number] Brant Ratliff MD Multiple myeloma not having achieved remission (Primary Dx) 05/11/2024 Orders Only [facility] Oncology and Hematology - [place] [address] [place] [address] Brant Ratliff MD 05/11/2024 Refill [facility] Oncology and Hematology - [place] [id number] Luda Linn MD Multiple myeloma not having achieved remission 05/08/2024 Orders Only [facility] Oncology and Hematology - [place] [id number] Brant Ratliff MD Multiple myeloma not having achieved remission; Benign hypertension 05/04/2024 Telephone [facility] Oncology and Hematology - [place] [address] [place] [address] Brant Ratliff MD Orders 05/03/2024 Orders Only [facility] Oncology and Hematology - [place] [id number] rBant Ratliff MD 04/26/2024 Orders Only [facility] Oncology and Hematology - [place] [address] [place] [address] Brant Ratliff MD 04/25/2024 External Device Data STL ABSTRACTION Provider, Abstract 04/25/2024 Orders Only [facility] Oncology and Hematology - [place] [id number] Brant Ratliff MD 04/24/2024 Refill [facility] Oncology and Hematology - [place] [address] [place] [id number] Luda Linn MD Multiple myeloma not having achieved remission 04/24/2024 Orders Only [facility] Oncology and Hematology - [place] [id number] Brant Ratliff MD Multiple myeloma not having achieved remission; Benign hypertension 04/21/2024 Orders Only [facility] Oncology and Hematology - [place] 7 [address] [place] [address] Brant Ratliff MD 04/18/2024 Orders Only [facility] Oncology and Hematology - [place] [address] [place] [phone] Brant Ratliff MD 04/14/2024 Orders Only [facility] Oncology and Hematology - [place] [address] [place] [phone] Brant Ratliff MD 04/13/2024 Orders Only [facility] Oncology and Hematology - [place] [address] [place] [phone] Brant Ratliff MD 04/12/2024 Orders Only [facility] Oncology and Hematology - [place] [address] [place] [phone] Brant Ratliff MD 04/11/2024 8:30 AM CDT Office Visit [facility] Oncology and Hematology - [place] [address] [place] [address] Brant Ratliff MD Multiple myeloma not having achieved remission (Primary Dx) 04/10/2024 Orders Only [facility] Oncology and Hematology - [place] [address] [place] [phone] Brant Ratliff MD Multiple myeloma not having achieved remission; Benign hypertension 04/06/2024 Orders Only [facility] Oncology and Hematology - [place] [address] [place] [address] Brant Ratliff MD 03/28/2024 Orders Only [facility] Oncology and Hematology - [place] [address] [place] [address] Brant Ratliff MD 03/28/2024 Abstract [facility] Oncology and Hematology - [place] [address] [place] [address] Brant Ratliff MD from Last 3 Months Family History Medical [...] Comments Blood Pressure 136/83 06/06/2024 10:14 AM SED MIDDLE SCHOOL TEACHER Pulse 72 06/06/2024 10:14 AM SED MIDDLE SCHOOL TEACHER Temperature 35.9 ??C (96.7 ??F) 06/06/2024 10:[address] Respiratory Rate 16 06/06/2024 10:14 AM SED MIDDLE SCHOOL TEACHER Oxygen Saturation 95% 06/06/2024 10:14 AM SED MIDDLE SCHOOL TEACHER Inhaled Oxygen Concentration - - Weight 98.9 kg (218 lb) 06/06/2024 10:14 AM SED MIDDLE SCHOOL TEACHER Height 172.7 cm (5' 8 ) 01/11/2024 10:44 AM CDT Body Mass Index 33.15 01/11/2024 10:44 AM CDT Plan of Treatment Upcoming Encounters Date Type Department Care Team (Late st Contact Info) Description 07/14/2024 9:00 AM SED MIDDLE SCHOOL TEACHER Office Visit [facility] Oncology and Hematology [facility] [address] [facility] [address] [place] [address] Brant Ratliff MD [address] [facility] [address] [place] [address] Health Maintenance Due Date Last [...] COMPREHENSIVE METABOLIC PANEL Routine 06/16/2024 1:11 PM SED MIDDLE SCHOOL TEACHER BASIC METABOLIC PANEL Routine 06/06/2024 2:18 PM SED MIDDLE SCHOOL TEACHER CBC WITH DIFFERENTIAL Routine 06/06/2024 2:17 PM SED MIDDLE SCHOOL TEACHER PROTEIN ELECTROPHORESIS, CSF Routine 06/06/2024 12:08 PM SED MIDDLE SCHOOL TEACHER KAPPA/LAMBDA LIGHT CHAINS Routine 2023 9:24 AM SED MIDDLE SCHOOL TEACHER XR PORT CONTRAST INJECT W FLUORO Routine 05/26/2024 1:55 PM SED MIDDLE SCHOOL TEACHER COMPREHENSIVE METABOLIC PANEL Routine 05/23/2024 12:54 PM SED MIDDLE SCHOOL TEACHER CBC WITH DIFFERENTIAL Routine 05/23/2024 10:45 AM SED MIDDLE SCHOOL TEACHER BASIC METABOLIC PANEL Routine 05/23/2024 9:48 AM SED MIDDLE SCHOOL TEACHER COMPREHENSIVE METABOLIC PANEL Routine 05/16/2024 3:32 PM SED MIDDLE SCHOOL TEACHER CBC WITH DIFFERENTIAL Routine 05/16/2024 12:49 PM SED MIDDLE SCHOOL TEACHER BASIC METABOLIC PANEL Routine 05/16/2024 12:42 PM SED MIDDLE SCHOOL TEACHER KAPPA/LAMBDA LIGHT CHAINS Routine 2023 9:38 AM SED MIDDLE SCHOOL TEACHER BASIC METABOLIC PANEL Routine 05/09/2024 3:45 PM SED MIDDLE SCHOOL TEACHER COMPREHENSIVE METABOLIC PANEL Routine 05/09/2024 3:28 PM SED MIDDLE SCHOOL TEACHER COMPREHENSIVE METABOLIC PANEL Routine 05/03/2024 3:38 PM SED MIDDLE SCHOOL TEACHER CBC WITH DIFFERENTIAL Routine 05/03/2024 1:24 PM SED MIDDLE SCHOOL TEACHER BASIC METABOLIC PANEL Routine 04/25/2024 11:57 AM SED MIDDLE SCHOOL TEACHER CBC WITH DIFFERENTIAL Routine 04/25/2024 11:56 AM SED MIDDLE SCHOOL TEACHER COMPREHENSIVE METABOLIC PANEL Routine 04/25/2024 8:31 AM SED MIDDLE SCHOOL TEACHER PROTEIN ELECTROPHORESIS, CSF Routine 04/20/2024 10:49 AM [...] * COMPREHENSIVE METABOLIC PANEL (06/16/2024 1:11 PM SED MIDDLE SCHOOL TEACHER) Only the most recent of8 resultswithin the time period is included. Blood Brant Ratliff MD CHEMISTRY ORDERABLES * BASIC METABOLIC PANEL (06/06/2024 2:18 PM SED MIDDLE SCHOOL TEACHER) Only the most recent of9 resultswithin the time period is included. Blood Brant Ratliff MD CHEMISTRY ORDERABLES * CBC WITH DIFFERENTIAL (06/06/2024 2:17 PM SED MIDDLE SCHOOL TEACHER) Only the most recent of6 resultswithin the time period is included. Blood Brant Ratliff MD HEMATOLOGY ORDERABLE S * PROTEIN ELECTROPHORESIS, CSF (06/06/2024 12:08 PM SED MIDDLE SCHOOL TEACHER) Only the most recent of2 resultswithin the time period is included. Cerebrospinal fluid CEREBROSPINAL FLUID / Unknown Brant Ratliff MD BODY FLUIDS AND STOO LS * KAPPA/LAMBDA, FREE LIGHT CHAINS (06/06/2024 9:24 AM SED MIDDLE SCHOOL TEACHER) Only the most recent of3 resultswithin the time period is included. Blood Brant Ratliff MD CHEMISTRY ORDERABLES * XR PORT CONTRAST INJECT W FLUORO (05/26/2024 1:55 PM SED MIDDLE SCHOOL TEACHER) Anatomical Region Laterality Modality Other Brant Ratliff MD DIAGNOSTIC IMAGING O RDERABLES * IGG (04/11/2024 9:58 AM CDT) Blood Brant Ratliff MD CHEMISTRY ORDERABLES from Last 3 Months Care Teams Supervising Bailiff Relationship Specialty Start Date End Date Elvis Lopez MD [facility] [place] [address] [place] [phone] PCP - General Family Practice 02/03/24
--- OUTSIDE RECORDS SUMMARY | 2024-06-28 17:16 | XMS_ITS | Encounter Summary ---
Author Organization [facility] [employer] Address [address] [place] [address] Care Team Providers Care Veneer Jointer Returner Name Role Phone Elvis Lopez MD Primary Care Provider [phone] Encounter Details Date Type Department Care Team (Late Contact Info) Description 05/23/2024 Orders Only [facility] Oncology and Hematology [facility] [address] [place] [address] Brant Ratliff MD [address] [place], [place] [address] [address] [place] [address] Social History Tobacco Use Types Packs/Day [...] st Contact Info) Description 07/14/2024 9:00 AM CLINICAL RESEARCH ANALYST Office Visit [facility] Oncology and Hematology [place] [address] [place] [address] Brant Ratliff MD [address] [employer] [address] [place] [address] documented as of this encounter Procedures Procedure Name Priority Date/Time Associated Diagnosis Comments KAPPA/LAMBDA LIGHT CHAINS Routine 05/16/2024 9:38 AM CLINICAL RESEARCH ANALYST documented in this encounter Results * KAPPA/LAMBDA, FREE LIGHT CHAINS (05/16/2024 9:38 AM CLINICAL RESEARCH ANALYST) Blood Brant Ratliff MD CHEMISTRY ORDERABLES documented in this encounter Visit Diagnoses Not on filedocumented in this encounter Care Teams Veneer Jointer Returner Relationship Specialty Start Date End Date Elvis Lopez MD [facility] [place] [address] PCP - General Family Practice 02/03/24 documented as of this encounter
--- OUTSIDE RECORDS SUMMARY | 2024-06-28 17:16 | XMS_ITS | Encounter Summary ---
Author Organization [facility] [employer] [facility] Address [address] [place] [address] Care Team Providers Care Ventilation Worker Name Role Phone Elvis Lopez MD Primary Care Provider [phone] Reason for Referral * Radiology Services (Routine) - Closed Specialty Diagnoses / Procedures Referred By Sharlene uriarte Referred To Contact Diagnoses Multiple myeloma not having achieved remission Procedures XR PORT CONTRAST INJECT W FLUORO Brant Ratliff MD [address] [place] [address] [place] [address] Referral ID Status Reason Start Date Expiration Date V isits Requested Visits Authorized [id number] Closed STL CTS 05/16/2024 06/16/2025 1 1 SPERSON HEARING AIDS Encounter Details Date Type Department Care Team (Late st Contact Info) Description 05/16/2024 Orders Only [facility] Oncology and Hematology [facility] [address] [facility] [address] [place] [address] Brant Ratliff MD [address] [place] [address] Multiple myeloma not having achieved [...] st Contact Info) Description 07/14/2024 9:00 AM SALESPERSON HEARING AIDS Office Visit [facility] Oncology and Hematology [facility] [address] [place] [address] [place] [address] Brant Ratliff MD [address] [facility] [address] [place] [address] Scheduled Orders Name Type Priority Associated Diagnoses Orde r Schedule XR PORT CONTRAST INJECT W FLUORO Imaging Routine Multiple myeloma not having achieved remission 1 Occurrences starting 05/16/2024 until 05/16/2025 documented as of this encounter Procedures Procedure Name Priority Date/Time Associated Diagnosis Comments COMPREHENSIVE METABOLIC PANEL Routine 05/16/2024 3:32 PM SALESPERSON HEARING AIDS CBC WITH DIFFERENTIAL Routine 05/16/2024 12:49 PM SALESPERSON HEARING AIDS BASIC METABOLIC PANEL Routine 05/16/2024 12:42 PM SALESPERSON HEARING AIDS documented in this encounter Results * COMPREHENSIVE METABOLIC PANEL (05/16/2024 3:32 PM SALESPERSON HEARING AIDS) Blood Brant Ratliff MD CHEMISTRY ORDERABLES * CBC WITH DIFFERENTIAL (05/16/2024 12:49 PM SALESPERSON HEARING AIDS) Blood Brant Ratliff MD HEMATOLOGY ORDERABLE S * BASIC METABOLIC PANEL (05/16/2024 12:42 PM SALESPERSON HEARING AIDS) Blood Brant Ratliff MD CHEMISTRY ORDERABLES documented in this encounter Visit Diagnoses Diagnosis Multiple myeloma not having achieved remission- Primary Multiple myeloma, without mention of having achieved remission documented in this encounter Care Teams Ventilation Worker Relationship Specialty Start Date End Date Elvis Lopez MD [address] [facility] [place] [address] PCP - General Family Practice 02/03/24 documented as of this encounter
--- OUTSIDE RECORDS SUMMARY | 2024-06-28 17:16 | XMS_ITS | Encounter Summary ---
Author Organization [facility] [employer] Address [address] [place] [address] Care Team Providers Care Supervisor Paint Roller Covers Name Role Phone Elvis Lopez MD Primary Care Provider [phone] Encounter Details Date Type Department Care Team (Late Contact Info) Description 06/08/2024 Orders Only [facility] Oncology and Hematology [facility] [address] [place] [address] Brant Ratliff MD [address] [place], [place] [address] [address] [place] [address] Social History Tobacco Use Types Packs/Day [...] st Contact Info) Description 07/14/2024 9:00 AM CORRECTIONS CASEWORKER Office Visit [facility] Oncology and Hematology [place] [address] [place] [address] Brant Ratliff MD [address] [facility] [employer] [address] [place] [address] documented as of this encounter Procedures Procedure Name Priority Date/Time Associated Diagnosis Comments KAPPA/LAMBDA LIGHT CHAINS Routine 06/06/2024 9:24 AM CORRECTIONS CASEWORKER documented in this encounter Results * KAPPA/LAMBDA, FREE LIGHT CHAINS (06/06/2024 9:24 AM CORRECTIONS CASEWORKER) Blood Brant Ratliff MD CHEMISTRY ORDERABLES documented in this encounter Visit Diagnoses Not on filedocumented in this encounter Care Teams Supervisor Paint Roller Covers Relationship Specialty Start Date End Date Elvis Lopez MD [facility]7 [place] [address] PCP - General Family Practice 02/03/24 documented as of this encounter
--- OUTSIDE RECORDS SUMMARY | 2024-06-28 17:17 | XMS_ITS | Encounter Summary ---
Author Organization [facility] Address [address] [place] [address] Care Team Providers Care Infection Prevention Practitioner Name Role Phone Elvis Lopez MD Primary Care Provider [phone] Reason for Visit * Reason Comments Med Refill Encounter Details Date Type Department Care Team (Late st Contact Info) Description 03/17/2024 Refill [facility] Oncology and Hematology [facility] [address] [place] [address] Brant Ratliff MD [address] [facility] C[employer] [address] [place] [address] Multiple myeloma not having achieved remission [...] st Contact Info) Description 07/14/2024 9:00 AM TITLE VEHICLE SERVICE ATTENDANT Office Visit [facility] Oncology and Hematology [place] [address] [place] [address] Brant Ratliff MD [address] [employer] C[address] [facility] [address] [place] [address] documented as of this encounter Visit Diagnoses Diagnosis Multiple myeloma not having achieved remission- Primary Multiple myeloma, without mention of having achieved remission documented in this encounter Care Teams Infection Prevention Practitioner Relationship Specialty Start Date End Date Elvis Lopez MD [facility]7 [facility] [place] [address] PCP - General Family Practice 02/03/24 documented as of this encounter
--- OUTSIDE RECORDS SUMMARY | 2024-06-28 17:17 | XMS_ITS | Encounter Summary ---
Author Organization [facility] Address [address] [place] [address] Care Team Providers Care Weblogic Administrator Name Role Phone Elvis Lopez MD Primary Care Provider [phone] Encounter Details Date Type Department Care Team [...] st Contact Info) Description 07/14/2024 9:00 AM IT APPLICATION ADMINISTRATOR Office Visit [facility] Oncology and Hematology - [place] [address] [facility] [address] [place] [address] Brant Ratliff MD [address] [facility] [address] [place] [address] documented as of this encounter Visit Diagnoses Not on filedocumented in this encounter Care Teams Weblogic Administrator Relationship Specialty Start Date End Date Elvis Lopez MD [address] [place] [address] [place] [address] PCP - General Family Practice 02/03/24 documented as of this encounter
--- OUTSIDE RECORDS SUMMARY | 2024-06-28 17:17 | XMS_ITS | Encounter Summary ---
Author Organization [facility] [employer] Address [address] [place] [address] Care Team Providers Care Developer Prover Upholstering Name Role Phone Elvis Lopez MD Primary Care Provider [phone] Encounter Details Date Type Department Care Team (Late st Contact Info) Description 04/24/2024 Orders Only [facility] Oncology and [facility] [address] [place] [address] Brant Ratliff MD [facility] [employer] [address] [place] [address] Multiple myeloma not having achieved remission; [...] st Contact Info) Description 07/14/2024 9:00 AM PRICE LISTER Office Visit [facility] Oncology and [facility] [address] [place] [address] Brant Ratliff MD [address] [employer] [address] [place] [address] documented as of this encounter Visit Diagnoses Diagnosis Multiple myeloma not having achieved remission Multiple myeloma, without mention of having achieved remission Benign hypertension Essential hypertension, benign documented in this encounter Care Teams Developer [employer]ver Upholstering Relationship Specialty Start Date End Date Elvis Lopez MD [address] [facility] [place] [address] PCP - General Family Practice 02/03/24 documented as of this encounter
--- OUTSIDE RECORDS SUMMARY | 2024-06-28 17:17 | XMS_ITS | Encounter Summary ---
Author Organization [facility] [place] [employer] Address [address] [place] [address] Care Team Providers Care Claim Taker Name Role Phone Elvis Lopez MD Primary Care Provider Encounter Details Date Type Department Care Team (Late Contact Info) Description 04/14/[address] [facility] Oncology and Hematology [facility] [address] [place] [address] Brant Ratliff MD [facility] [employer] [address] [place] [address] Social History Tobacco Use Types Packs/Day [...] st Contact Info) Description 07/14/2024 9:00 AM PRECISION LENS GRINDER Office Visit [facility] Oncology and Hematology [place] [address] [place] [address] Brant Ratliff MD [address] [employer] [address] [place] [address] documented as of this encounter Procedures Procedure Name Priority Date/Time Associated Diagnosis Comments BASIC METABOLIC PANEL Routine 04/11/2024 12:02 PM CDT documented in this encounter Results * BASIC METABOLIC PANEL (04/11/2024 12:02 PM CDT) Blood Brant Ratliff MD CHEMISTRY ORDERABLES documented in this encounter Visit Diagnoses Not on filedocumented in this encounter Care Teams Claim Taker Relationship Specialty Start Date End Date Elvis Lopez MD [address] [facility] [place] [address] PCP - General Family Practice 02/03/24 documented as of this encounter
--- OUTSIDE RECORDS SUMMARY | 2024-06-28 17:17 | XMS_ITS | Encounter Summary ---
Author Organization [facility] [email or web address] Address [address] [place] [address] Care Team Providers Care Clinical Office Technician Name Role Phone Elvis Lopez MD Primary Care Provider [phone] Encounter Details Date Type Department Care Team (Late Contact Info) Description 03/14/2024 Orders Only [facility] Oncology and Hematology [facility] [address] [place] [address] Brant Ratliff MD [facility] [employer] [address] [place] [address] Social History Tobacco Use Types Packs/Day [...] st Contact Info) Description 07/14/2024 9:00 AM DEAN OF EDUCATION Office Visit [facility] Oncology and Hematology [place] [address] [place] [address] Barnt Ratliff MD [address] [employer] [address] [place] [address] documented as of this encounter Procedures [...] filedocumented in this encounter Care Teams Clinical Office Technician Relationship Specialty Start Date End Date Elvis Lopez MD [facility]7 [facility] [place] [address] PCP - General Family Practice 02/03/24 documented as of this encounter
--- OUTSIDE RECORDS SUMMARY | 2024-06-28 17:17 | XMS_ITS | Encounter Summary ---
Author Organization [facility] [employer] Address [address] [place] [address] Care Team Providers Care Prototype Engineer Manager Name Role Phone Elvis Lopez MD Primary Care Provider [phone] Encounter Details Date Type Department Care Team (Late st Contact Info) Description 02/28/2024 Orders Only [facility] Oncology and [facility] [address] [place] [address] Brant Ratliff MD [facility] [employer] [address] [place] [address] Multiple myeloma not having achieved remission; [...] st Contact Info) Description 07/14/2024 9:00 AM FURNITURE STAINER Office Visit [facility] Oncology and [facility] [address] [place] [address] Brant Ratliff MD [address] [employer] [address] [place] [address] documented as of this encounter Visit Diagnoses Diagnosis Multiple myeloma not having achieved remission Multiple myeloma, without mention of having achieved remission Benign hypertension Essential hypertension, benign documented in this encounter Care Teams Prototype Engineer Manager Relationship Specialty Start Date End Date Elvis Lopez MD [address] [facility] [place] [address] PCP - General Family Practice 02/03/24 documented as of this encounter
--- OUTSIDE RECORDS SUMMARY | 2024-06-28 17:17 | XMS_ITS | Encounter Summary ---
Author Organization [facility] [employer] Address [address] [place] [address] Care Team Providers Care Metal Stamper Name Role Phone Elvis Lopez MD Primary Care Provider [phone] Encounter Details Date Type Department Care Team (Late Contact Info) Description 04/13/2024 Orders Only [facility] Oncology and Hematology [facility] [address] [place] [address] Brant Ratliff MD [address] [place], [place] [address] [address] [place] [address] Social History Tobacco Use Types Packs/Day [...] st Contact Info) Description 07/14/2024 9:00 AM PHYSICAL THERAPIST Office Visit [facility] Oncology and Hematology [place] [address] [place] [address] Brant Ratliff MD [address] [employer] [address] [place] [address] documented as of this encounter Procedures Procedure Name Priority Date/Time Associated Diagnosis Comments KAPPA/LAMBDA LIGHT CHAINS Routine 04/12/2024 2:43 PM CDT documented in this encounter Results * KAPPA/LAMBDA, FREE LIGHT CHAINS (04/12/2024 2:43 PM CDT) Blood Brant Ratliff MD CHEMISTRY ORDERABLES documented in this encounter Visit Diagnoses Not on filedocumented in this encounter Care Teams Metal Stamper Relationship Specialty Start Date End Date Elvis Lopez MD [address] [facility] [place] [address] PCP - General Family Practice 02/03/24 documented as of this encounter
--- OUTSIDE RECORDS SUMMARY | 2024-06-28 17:17 | XMS_ITS | Encounter Summary ---
Author Organization [facility] [employer] Address [address] [place] [address] Care Team Providers Care Parking Meter Mechanic Name Role Phone Elvis Lopez MD Primary Care Provider [phone] Encounter Details Date Type Department Care Team (Late Contact Info) Description 03/28/2024 Abstract [facility] Oncology [facility] [address] [place] [address] Brant Ratliff MD [address] [place], [place] [address] [address] [place] [address] Social History Tobacco Use Types Packs/Day [...] st Contact Info) Description 07/14/2024 9:00 AM MACHINE TRIMMER Office Visit [facility] Oncology [facility] [address] [place] [address] Brant Ratliff MD [address] [employer] [address] [place] [address] documented as of this encounter Visit Diagnoses Not on filedocumented in this encounter Care Teams Parking Meter Mechanic Relationship Specialty Start Date End Date Elvis Lopez MD [address] [place] [address] [place] [address] PCP - General Family Practice 02/03/24 documented as of this encounter
--- OUTSIDE RECORDS SUMMARY | 2024-06-28 17:17 | XMS_ITS | Encounter Summary ---
Author Organization [facility] [employer] Address [address] [place] [address] Care Team Providers Care Blind Teacher Name Role Phone Elvis Lopez MD Primary Care Provider [phone] Encounter Details Date Type Department Care Team (Late st Contact Info) Description 03/27/2024 Orders Only [facility] Oncology and [facility] [address] [place] [address] Brant Ratliff MD [facility] [address] [place] [address] Multiple myeloma not having achieved remission; [...] st Contact Info) Description 07/14/2024 9:00 AM PRINT DEVELOPER Office Visit [facility] Oncology and [facility] [address] [place] [address] Brant Ratliff MD [address] [facility] [address] [place] [address] documented as of this encounter Visit Diagnoses Diagnosis Multiple myeloma not having achieved remission Multiple myeloma, without mention of having achieved remission Benign hypertension Essential hypertension, benign documented in this encounter Care Teams Blind Teacher Relationship Specialty Start Date End Date Elvis Lopez MD [address] [facility] [place] [address] [place] [address] PCP - General Family Practice 02/03/24 documented as of this encounter
--- OUTSIDE RECORDS SUMMARY | 2024-06-28 17:17 | XMS_ITS | Encounter Summary ---
Author Organization [facility] [employer] Address [address] [place] [address] Care Team Providers Care Hat Sizer Name Role Phone Elvis Lopez MD Primary Care Provider [phone] Encounter Details Date Type Department Care Team (Late Contact Info) Description 04/06/2024 Orders Only [facility] Oncology and Hematology [facility] [address] [place] [address] Brant Ratliff MD [facility] [employer] [address] [place] [address] Social History Tobacco Use Types Packs/Day [...] st Contact Info) Description 07/14/2024 9:00 AM BARREL STRAIGHTENER Office Visit [facility] Oncology and Hematology [place] [address] [place] [address] Brant Ratliff MD [address] [employer] [address] [place] [address] documented as of this encounter Procedures [...] on filedocumented in this encounter Care Teams Hat Sizer Relationship Specialty Start Date End Date Elvis Lopez MD [facility] [place] [address] PCP - General Family Practice 02/03/24 documented as of this encounter
--- OUTSIDE RECORDS SUMMARY | 2024-06-28 17:17 | XMS_ITS | Encounter Summary ---
Author Organization [facility] Address [address] [place] [address] Care Team Providers Care Rn Endoscopy Name Role Phone Elvis Lopez MD Primary Care Provider Reason for Visit * Reason Comments Chemotherapy Encounter Details Date Type Department Care Team (Late st Contact Info) Description 03/14/2024 9:00 AM CDT Office Visit [facility] Oncology and Hematology - [place] [address] [place] [address] Brant Ratliff MD [address] [employer] [facility] [address] [place] [address] Multiple myeloma not having achieved [...] 83 y.o. Sex: female : 1940 DIAGNOSIS [place] multiple myeloma CURRENT TREATMENT VRD [...] Fibromyalgia 11/26/2020 Spondylolisthesis at L4-L5 level 11/26/2020 [place] multiple myeloma. Patient has a [...] st Contact Info) Description 07/14/2024 9:00 AM ELIGIBILITY WORKER Office Visit [facility] Oncology and Hematology [facility] [address] [facility] [address] [place] [address] Brant Ratliff MD 2[address] [facility] [address] [place] [address] Scheduled Orders Name Type Priority [...] remission documented in this encounter Care Teams Rn Endoscopy Relationship Specialty Start Date End Date Elvis Lopez MD [address] [facility] [place] [address] PCP - General Family Practice 02/03/24 documented as of this encounter
--- OUTSIDE RECORDS SUMMARY | 2024-06-28 17:17 | XMS_ITS | Encounter Summary ---
Author Organization [facility] Address [address] [place] [address] Care Team Providers Care Rent Control Office Manager Name Role Phone Elvis Lopez MD Primary Care Provider [phone] Encounter Details Date Type Department Care Team [...] st Contact Info) Description 07/14/2024 9:00 AM NAVIGATION TEACHER Office Visit [facility] Oncology and Hematology - [place] [address] [facility] [address] [place] [address] Brant Ratliff MD [address] [facility] [address] [place] [address] documented as of this encounter Visit Diagnoses Not on filedocumented in this encounter Care Teams Rent Control Office Manager Relationship Specialty Start Date End Date Elvis Lopez MD [address] [place] [address] [place] [address] PCP - General Family Practice 02/03/24 documented as of this encounter
--- OUTSIDE RECORDS SUMMARY | 2024-06-28 17:17 | XMS_ITS | Encounter Summary ---
Author Organization [facility] [employer] Address [address] [place] [address] Care Team Providers Care Tin Tie Machine Operator Automatic Name Role Phone Elvis Lopez MD Primary Care Provider [phone] Reason for Visit * Reason Onset Date Comments Medication Refill 04/24/2024 Encounter Details Date Type Department Care Team (Late st Contact Info) Description 04/24/2024 Refill [facility] Oncology and Hematology [place] [address] [place] [address] Luda Linn MD [address] [place] [address] Multiple myeloma not having achieved [...] st Contact Info) Description 07/14/2024 9:00 AM PIPE CONNECTOR Office Visit [facility] Oncology and Hematology [facility] [address] [place] [address] Brant Ratliff MD [address] [employer] [address] [place] [address] documented as of this encounter Visit Diagnoses Diagnosis Multiple myeloma not having achieved remission Multiple myeloma, without mention of having achieved remission documented in this encounter Care Teams Tin Tie Machine Operator Automatic Relationship Specialty Start Date End Date Elvis Lopez MD [facility] [address] [place] [address] PCP - General Family Practice 02/03/24 documented as of this encounter
--- OUTSIDE RECORDS SUMMARY | 2024-06-28 17:17 | XMS_ITS | Encounter Summary ---
Author Organization [facility] [employer] Address [address] [place] [address] Care Team Providers Care Instrument And Controls Technician Name Role Phone Elvis Lopez MD Primary Care Provider [phone] Encounter Details Date Type Department Care Team (Late st Contact Info) Description 04/12/2024 Orders Only [facility] Oncology and Hematology [facility] Raphael London [address] [place] [address] Brant Ratliff MD [address] [place], [place] [address] [address] [place] [address] Social History Tobacco Use Types Packs/Day [...] st Contact Info) Description 07/14/2024 9:00 AM DANDY OPERATOR Office Visit [facility] Oncology and Hematology [place] [address] [place] [address] Brant Ratliff MD 222 [facility] [employer] [address] [place] [address] documented as of this encounter Procedures Procedure Name Priority Date/Time Associated Diagnosis Comments IGG Routine 04/11/2024 9:58 AM CDT documented in this encounter Results * IGG (04/11/2024 9:58 AM CDT) Blood Brant Ratliff MD CHEMISTRY ORDERABLES documented in this encounter Visit Diagnoses Not on filedocumented in this encounter Care Teams Instrument And Controls Technician Relationship Specialty Start Date End Date Elvis Lopez MD [facility]7 [facility] [place] [place] [address] PCP - General Family Practice 02/03/24 documented as of this encounter
--- OUTSIDE RECORDS SUMMARY | 2024-06-28 17:17 | XMS_ITS | Encounter Summary ---
Author Organization [facility] [employer] Address [address] [place] [address] Care Team Providers Care Char Belt Operator Name Role Phone Elvis Lopez MD Primary Care Provider [phone] Encounter Details Date Type Department Care Team (Late st Contact Info) Description 03/13/2024 Orders Only [facility] Oncology and [facility] [address]pael [address] [place] [address] Brant Ratliff MD [facility] [employer] [address] [place] [address] Multiple myeloma not having achieved remission; [...] st Contact Info) Description 07/14/2024 9:00 AM SENIOR CLINICAL RESEARCH SCIENTIST Office Visit [facility] Oncology and [facility] [address] [place] [address] Brant Ratliff MD 222 [employer] [address] [place] [address] documented as of this encounter Visit Diagnoses Diagnosis Multiple myeloma not having achieved remission Multiple myeloma, without mention of having achieved remission Benign hypertension Essential hypertension, benign documented in this encounter Care Teams Char Belt Operator Relationship Specialty Start Date End Date Elvis Lopez MD [address] [facility] [place] [address] [place] [address] PCP - General Family Practice 02/03/24 documented as of this encounter
--- OUTSIDE RECORDS SUMMARY | 2024-06-28 17:17 | XMS_ITS | Encounter Summary ---
Author Organization [facility] [employer] Address [address] [place] [address] Care Team Providers Care Customer Pricing Manager Name Role Phone Elvis Lopez MD Primary Care Provider [phone] Encounter Details Date Type Department Care Team (Late Contact Info) Description 02/17/[address] [facility] Oncology [facility] [address] [place] [address] Brant Ratliff MD [address] [employer] [address] [place] [address] Multiple myeloma not having achieved [...] (Late Contact Info) Description 07/14/2024 9:00 AM CONVEYOR FEEDER OFFBEARER Office Visit [facility] Oncology [facility] Alex London [address] [place] [address] Brant Ratliff MD [address] [employer] [address] [place] [address] Scheduled Orders Name Type Priority [...] benign documented in this encounter Care Teams Customer Pricing Manager Relationship Specialty Start Date End Date Elvis Lopez MD [facility]7 [facility] [place] [address] [place] [address] PCP - General Family Practice 02/03/24 documented as of this encounter
--- OUTSIDE RECORDS SUMMARY | 2024-06-28 17:17 | XMS_ITS | Encounter Summary ---
Author Organization [facility] [employer] [facility] Address [address] [place] [address] Care Team Providers Care Change House Attendant Name Role Phone Elvis Lopez MD Primary Care Provider [phone] Reason for Visit * Reason Comments Chemotherapy Follow Up Encounter Details Date Type Department Care Team (Late st Contact Info) Description 03/07/2024 9:00 AM CDT Office Visit [facility] Oncology and Hematology - [place] [address] Irwin Suyra [address] [place] [address] Brant Ratliff MD 2[address] [email or web address] [facility] [address] [place] [address] Multiple myeloma not having achieved [...] 83 y.o. Sex: female : 1940 DIAGNOSIS [place] [employer] multiple myeloma CURRENT TREATMENT VRD [...] Fibromyalgia 11/26/2020 Spondylolisthesis at L4-L5 level 11/26/2020 [place] [employer] multiple myeloma. Patient has a [...] st Contact Info) Description 07/14/2024 9:00 AM IMPLEMENTATION ENGINEER Office Visit [facility] Oncology and Hematology [facility] 2[address] [facility] [address] [place] [address] Brant Ratliff MD 2227 [facility] [address] [place] [address] Scheduled Orders Name Type Priority [...] remission documented in this encounter Care Teams Change House Attendant Relationship Specialty Start Date End Date Elvis Lopez MD 34[address] [facility] [place] [address] PCP - General Family Practice 02/03/24 documented as of this encounter
--- OUTSIDE RECORDS SUMMARY | 2024-06-28 17:17 | XMS_ITS | Encounter Summary ---
Author Organization [facility] [employer] Address [address] [place] [address] Care Team Providers Care Simulation Educator Name Role Phone Elvis Lopez MD Primary Care Provider [phone] Encounter Details Date Type Department Care Team (Late Contact Info) Description 02/23/2024 Abstract [facility] [address] [place] [address] Brant Ratliff MD [address] [place], [place] [address] [address] [place] [address] Social History Tobacco Use Types Packs/Day [...] st Contact Info) Description 07/14/2024 9:00 AM PLAYGROUND AIDE Office Visit [facility] [address] [place] [address] Brant Ratliff MD [address] [employer] [address] [place] [address] documented as of this encounter Visit Diagnoses Not on filedocumented in this encounter Care Teams Simulation Educator Relationship Specialty Start Date End Date Elvis Lopez MD [address] [place] [address] [place] [address] PCP - General Family Practice 02/03/24 documented as of this encounter
--- OUTSIDE RECORDS SUMMARY | 2024-06-28 17:17 | XMS_ITS | Encounter Summary ---
Author Organization [facility] Address [address] [place] [address] Care Team Providers Care Stone Polisher Machine Name Role Phone Elvis Lopez MD Primary Care Provider [phone] Encounter Details Date Type Department Care Team [...] st Contact Info) Description 07/14/2024 9:00 AM CORNICE MAKER Office Visit [facility] Oncology and Hematology - [place] 2227 [facility] 200 [place] [address] Brant Ratliff MD 2227 [facility] [address] [place] [address] documented as of this encounter Visit Diagnoses Not on filedocumented in this encounter Care Teams Stone Polisher Machine Relationship Specialty Start Date End Date Elvis Lopez MD [address] [place] [address] [place] [address] PCP - General Family Practice 02/03/24 documented as of this encounter
--- OUTSIDE RECORDS SUMMARY | 2024-06-28 17:17 | XMS_ITS | Encounter Summary ---
Author Organization [facility] [employer] Address [address] [place] [address] Care Team Providers Care Telephone Station Repairer Name Role Phone Elvis Lopez MD Primary Care Provider [phone] Encounter Details Date Type Department Care Team (Late Contact Info) Description 03/22/2024 Orders Only [facility] Oncology and Hematology [facility] Raphael [address] [place] [address] Brant Ratliff MD [facility] [email or web address] [address] [place] [address] Social History Tobacco Use Types Packs/Day [...] st Contact Info) Description 07/14/2024 9:00 AM OYSTER WORKER Office Visit [facility] Oncology and Hematology [place] [address] [place] [address] Brant Ratliff MD 222 [employer] [address] [place] [address] documented as of this encounter Procedures [...] filedocumented in this encounter Care Teams Telephone Station Repairer Relationship Specialty Start Date End Date Elvis Lopez MD [facility] [place] [address] PCP - General Family Practice 02/03/24 documented as of this encounter
--- OUTSIDE RECORDS SUMMARY | 2024-06-28 17:17 | XMS_ITS | Encounter Summary ---
Author Organization [facility] [employer] Address [address] [place] [address] Care Team Providers Care Dumper Operator Name Role Phone Elvis Lopez MD Primary Care Provider [phone] Reason for Visit * Reason Onset Date Comments Pain 03/03/2024 Encounter Details Date Type Department Care Team (Late st Contact Info) Description 03/03/2024 Telephone [facility] Oncology and Hematology - [place] 2227 [address] Irwin S[address] [place] [address] Brant Ratliff MD [address] [address] [place] [address] Pain Social History Tobacco Use [...] st Contact Info) Description 07/14/2024 9:00 AM TYRE FINISHER AND EXAMINER Office Visit [facility] Oncology and Hematology - [place] [address] [place] [address] [address] Brant Ratliff MD [address] [employer] [place] [address] [place] [address] documented as of this encounter Visit Diagnoses Not on filedocumented in this encounter Care Teams Dumper Operator Relationship Specialty Start Date End Date Elvis Lopez MD 3417 [facility] [place] [address] PCP - General Family Practice 02/03/24 documented as of this encounter
--- OUTSIDE RECORDS SUMMARY | 2024-06-28 17:17 | XMS_ITS | Encounter Summary ---
Author Organization [facility] [employer] Address [address] [place] [address] Care Team Providers Care High Man Name Role Phone Elvis Lopez MD Primary Care Provider [phone] Encounter Details Date Type Department Care Team (Late Contact Info) Description 02/25/2024 Orders Only [facility] Oncology and Hematology [facility] Raphael [address] [place] [address] Brant Ratliff MD [facility] [employer] [address] [place] [address] Social History Tobacco Use Types Packs/Day [...] st Contact Info) Description 07/14/2024 9:00 AM FLOTATION OPERATOR Office Visit [facility] Oncology and Hematology [place] Alex London [address] [place] [address] Brant Ratliff MD 222 [employer] [address] [place] [address] documented as of this encounter Procedures [...] on filedocumented in this encounter Care Teams High Man Relationship Specialty Start Date End Date Elvis Lopez MD [facility] [place] [address] PCP - General Family Practice 02/03/24 documented as of this encounter
--- OUTSIDE RECORDS SUMMARY | 2024-06-28 17:17 | XMS_ITS | Encounter Summary ---
Author Organization [facility] [employer] Address [address] [place] [address] Care Team Providers Care Multicultural Services Librarian Name Role Phone Elvis Lopez MD Primary Care Provider [phone] Encounter Details Date Type Department Care Team (Late Contact Info) Description 03/28/2024 Orders Only [facility] Oncology and Hematology [facility] [address] [place] [address] Brant Ratliff MD [facility] [employer] [address] [place] [address] Social History Tobacco Use Types Packs/Day [...] st Contact Info) Description 07/14/2024 9:00 AM BESSEMER CONVERTER BLOWER Office Visit [facility] Oncology and Hematology [place] [address] [place] [address] Brant Ratliff MD [address] [employer] [address] [place] [address] documented as of this encounter Procedures [...] on filedocumented in this encounter Care Teams Multicultural Services Librarian Relationship Specialty Start Date End Date Elvis Lopez MD [facility] [facility] [place] [address] PCP - General Family Practice 02/03/24 documented as of this encounter
--- OUTSIDE RECORDS SUMMARY | 2024-06-28 17:17 | XMS_ITS | Encounter Summary ---
Author Organization [facility] [employer] Address [address] [place] [address] Care Team Providers Care Tamping Machine Operator Road Forms Name Role Phone Elvis Lopez MD Primary Care Provider [phone] Encounter Details Date Type Department Care Team (Late st Contact Info) Description 04/26/2024 Orders Only [facility] Oncology and Hematology [facility] Raphael [address] [place] [address] Brant Ratliff MD [address] [place], [place] [address] [address] [address] Social History Tobacco Use Types Packs/Day [...] st Contact Info) Description 07/14/2024 9:00 AM CONE TENDER Office Visit [facility] Oncology and Hematology [place] Alex London [address] [place] [address] Brant Ratliff MD [address] [employer] [address] [place] [address] documented as of this encounter Procedures Procedure Name Priority Date/Time Associated Diagnosis Comments COMPREHENSIVE METABOLIC PANEL Routine 04/25/2024 8:31 AM CONE TENDER documented in this encounter Results * COMPREHENSIVE METABOLIC PANEL (04/25/2024 8:31 AM CONE TENDER) Blood Brant Ratliff MD CHEMISTRY ORDERABLES documented in this encounter Visit Diagnoses Not on filedocumented in this encounter Care Teams Tamping Machine Operator Road Forms Relationship Specialty Start Date End Date Elvis Lopez MD [address] [facility] [place] [address] PCP - General Family Practice 02/03/24 documented as of this encounter
--- OUTSIDE RECORDS SUMMARY | 2024-06-28 17:17 | XMS_ITS | Encounter Summary ---
Author Organization [facility] [employer] Address [address] [place] [address] Care Team Providers Care Field Contact Person Name Role Phone Elvis Lopez MD Primary Care Provider [phone] Encounter Details Date Type Department Care Team (Late st Contact Info) Description 04/10/2024 Orders Only [facility] Oncology and [facility] [address] [place] [address] Brant Ratliff MD 222 [employer] [address] [place] [address] Multiple myeloma not having achieved remission; [...] Contact Info) Description 07/14/2024 9:00 AM MANAGER PE Office Visit [facility] Oncology and Hematology [facility] 2[address] [place] [address] Brant Ratliff MD [address] [employer] [address] [place] [address] documented as of this encounter Visit Diagnoses Diagnosis Multiple myeloma not having achieved remission Multiple myeloma, without mention of having achieved remission Benign hypertension Essential hypertension, benign documented in this encounter Care Teams Field Contact Person Relationship Specialty Start Date End Date Elvis Lopez MD [address] [facility] [address] [place] [address] PCP - General Family Practice 02/03/24 documented as of this encounter
--- OUTSIDE RECORDS SUMMARY | 2024-06-28 17:17 | XMS_ITS | Encounter Summary ---
Author Organization [facility] [employer] Address [address] [place] [address] Care Team Providers Care Surgical Technician Name Role Phone Elvis Lopez MD Primary Care Provider [phone] Encounter Details Date Type Department Care Team (Late Contact Info) Description 04/21/2024 Orders Only [facility] Oncology and Hematology [facility] Rap[address] [place] [address] Brant Ratliff MD [facility] [employer] [address] [place] [address] Social History Tobacco Use Types Packs/Day [...] st Contact Info) Description 07/14/2024 9:00 AM ENVIRONMENTAL HEALTH AND SAFETY LEADER Office Visit [facility] Oncology and Hematology [place] Alex London [address] [place] [address] Brant Ratliff MD [address] [employer] [address] [place] [address] documented as of this encounter Procedures Procedure Name Priority Date/Time Associated Diagnosis Comments PROTEIN ELECTROPHORESIS, CSF Routine 04/20/2024 10:49 AM CDT documented in this encounter Results * PROTEIN ELECTROPHORESIS, CSF (04/20/2024 10:49 AM CDT) Cerebrospinal fluid CEREBROSPINAL FLUID / Unknown Brant Ratliff MD [facility] CHRIS RAMIREZ documented in this encounter Visit Diagnoses Not on filedocumented in this encounter Care Teams Surgical Technician Relationship Specialty Start Date End Date Elvis Lopez MD [address] [facility] [place] [address] PCP - General Family Practice 02/03/24 documented as of this encounter
--- OUTSIDE RECORDS SUMMARY | 2024-06-28 17:17 | XMS_ITS | Encounter Summary ---
Author Organization [facility] [employer] Address [address] [place] [address] Care Team Providers Care Watch Crystal Cutter Name Role Phone Elvis Lopez MD Primary Care Provider [phone] Encounter Details Date Type Department Care Team (Late Contact Info) Description 04/18/2024 Orders Only [facility] Oncology and Hematology [facility] [address] [place] [address] Brant Ratliff MD [address] [place], [place] [address] [address] [place] [address] Social History Tobacco Use Types Packs/Day [...] st Contact Info) Description 07/14/2024 9:00 AM SLURRY TANK OPERATOR Office Visit [facility] Oncology and Hematology [place] [address] [place] [address] Brant Ratliff MD 222 [employer] [address] [place] [address] documented as of this encounter Procedures [...] on filedocumented in this encounter Care Teams Watch Crystal Cutter Relationship Specialty Start Date End Date Elvis Lopez MD [facility]7 [facility] [place] [address] PCP - General Family Practice 02/03/24 documented as of this encounter
--- OUTSIDE RECORDS SUMMARY | 2024-06-28 17:17 | XMS_ITS | Encounter Summary ---
Author Organization [facility] [employer] [facility] Address [address] [place] [address] Care Team Providers Care Tape Transferrer Name Role Phone Elvis Lopez MD Primary Care Provider [phone] Reason for Visit * Reason Comments Chemotherapy Follow Up Encounter Details Date Type Department Care Team (Late st Contact Info) Description 04/11/2024 8:30 AM CDT Office Visit [facility] Oncology and Hematology - [place] [address] [place] [address] Brant Ratliff MD 2[address] [facility] [address] [place] [address] Multiple myeloma not having achieved [...] 83 y.o. Sex: female : 1940 DIAGNOSIS [place] [employer] multiple myeloma CURRENT TREATMENT VRD [...] Fibromyalgia 11/26/2020 Spondylolisthesis at L4-L5 level 11/26/2020 [place] [employer] multiple myeloma. Patient has a [...] st Contact Info) Description 07/14/2024 9:00 AM LEATHER DRIER Office Visit [facility] Oncology and Hematology [facility] [address] [facility] [address] [place] [address] Brant Ratliff MD [address] [facility] [address] [place] [address] Scheduled Orders Name Type Priority [...] remission documented in this encounter Care Teams Tape Transferrer Relationship Specialty Start Date End Date Elvis Lopez MD [facility] [place] [address] PCP - General Family Practice 02/03/24 documented as of this encounter
--- OUTSIDE RECORDS SUMMARY | 2024-06-28 17:17 | XMS_ITS | Encounter Summary ---
Author Organization [facility] [employer] Address [address] [place] [address] Care Team Providers Care Senior Gl Accountant Name Role Phone Elvis Lopez MD Primary Care Provider [phone] Encounter Details Date Type Department Care Team (Late Contact Info) Description 02/29/2024 Orders Only [facility] Oncology and Hematology [facility] Raphael [address] [place] [address] Brant Ratliff MD [address] [place], [place] [address] [address] [place] [address] Social History Tobacco Use Types Packs/Day [...] Contact Info) Description 07/14/2024 9:00 AM TITLE SUPERVISOR Office Visit [facility] Oncology and Hematology [place] Alex London [address] [place] [address] Brant Ratliff MD 222 [employer] [address] [place] [address] documented as of this encounter Procedures Procedure Name Priority Date/Time Associated Diagnosis Comments COMPREHENSIVE METABOLIC PANEL Routine 02/29/2024 3:26 PM CDT documented in this encounter Results * COMPREHENSIVE METABOLIC PANEL (02/29/2024 3:26 PM CDT) Blood Brant Ratliff MD CHEMISTRY ORDERABLES documented in this encounter Visit Diagnoses Not on filedocumented in this encounter Care Teams Senior Gl Accountant Relationship Specialty Start Date End Date Elvis Lopez MD [address] [facility] [place] [address] PCP - General Family Practice 02/03/24 documented as of this encounter
--- OUTSIDE RECORDS SUMMARY | 2024-06-28 17:17 | XMS_ITS | Encounter Summary ---
Author Organization [facility] Address [address] [place] [address] Care Team Providers Care Line Servicer Name Role Phone Elvis Lopez MD Primary Care Provider [phone] Encounter Details Date Type Department Care Team [...] st Contact Info) Description 07/14/2024 9:00 AM HEATER MECHANIC Office Visit [facility] Oncology and Hematology - [place] 2[address] [facility] [place] [facility] [address] [place] [address] Brant Ratliff MD [address] [facility] [address] [place] [address] documented as of this encounter Visit Diagnoses Not on filedocumented in this encounter Care Teams Line Servicer Relationship Specialty Start Date End Date Elvis Lopez MD [address] [place] [address] [place] [address] PCP - General Family Practice 02/03/24 documented as of this encounter
--- OUTSIDE RECORDS SUMMARY | 2024-06-28 17:17 | XMS_ITS | Encounter Summary ---
Author Organization [facility] [email or web address] Address [address] [place] [address] Care Team Providers Care Pilot Highway Patrol Name Role Phone Elvis Lopez MD Primary Care Provider [phone] Encounter Details Date Type Department Care Team (Late Contact Info) Description 03/27/2024 Abstract [facility] Oncology [facility] [place] [address] [place] [address] Brant Ratliff MD [address] [place], [place] [address] [address] [place] [address] Social History Tobacco Use Types Packs/Day [...] st Contact Info) Description 07/14/2024 9:00 AM ROLL PICKER Office Visit [facility] Oncology [facility] [place] [address] [place] [address] Brant Ratliff MD [address] [employer] [address] [place] [address] documented as of this encounter Visit Diagnoses Not on filedocumented in this encounter Care Teams Pilot Highway Patrol Relationship Specialty Start Date End Date Elvis Lopez MD [address] [place] [address] [place] [address] PCP - General Family Practice 02/03/24 documented as of this encounter
--- OUTSIDE RECORDS SUMMARY | 2024-06-28 17:17 | XMS_ITS | Encounter Summary ---
Author Organization [facility] [employer] [facility] Address [address] [place] [address] Care Team Providers Care 7Th Grade Teacher Name Role Phone Elvis Lopez MD Primary Care Provider [phone] Reason for Visit * Reason Comments Med Refill Encounter Details Date Type Department Care Team ([facility] Contact Info) Description 02/24/2024 Refill [facility] Oncology and Hematology [place] [address] [place] [address] Brant Ratliff MD [address] [place] [address] [employer] [address] [place] [address] Social History Tobacco Use Types Packs/Day [...] (Late Contact Info) Description 07/14/2024 9:00 AM FIELD CROP II FARMWORKER Office Visit [facility] Oncology and Hematology [place] [address] [place] [address] Brant Ratliff MD [address] [place] [address] [employer] [address] [place] [address] documented as of this encounter Visit Diagnoses Not on filedocumented in this encounter Care Teams 7Th Grade Teacher Relationship Specialty Start Date End Date Elvis Lopez MD [address] [facility] [place] [address] PCP - General Family Practice 02/03/24 documented as of this encounter
--- OUTSIDE RECORDS SUMMARY | 2024-06-28 17:17 | XMS_ITS | Encounter Summary ---
Author Organization [facility] Address [address] [place] [address] Care Team Providers Care Electrician Maintenance Name Role Phone Elvis Lopez MD Primary Care Provider [phone] Encounter Details Date Type Department Care Team [...] st Contact Info) Description 07/14/2024 9:00 AM FIELD SUPPORT ENGINEER Office Visit [facility] Oncology and Hematology - [place] 2[address] [facility] 200 [place] [address] Brant Ratliff MD 2[address] [facility] [address] [place] [address] documented as of this encounter Visit Diagnoses Not on filedocumented in this encounter Care Teams Electrician Maintenance Relationship Specialty Start Date End Date Elvis Lopez MD [address] [place] [address] [place] [address] PCP - General Family Practice 02/03/24 documented as of this encounter
--- OUTSIDE RECORDS SUMMARY | 2024-06-28 17:17 | XMS_ITS | Encounter Summary ---
Author Organization [facility] Address [address] [place] [address] Care Team Providers Care Maritime Officer Name Role Phone Elvis Lopez MD Primary Care Provider [phone] Encounter Details Date Type Department Care Team [...] st Contact Info) Description 07/14/2024 9:00 AM HORSEBACK RIDING INSTRUCTOR Office Visit [facility] Oncology and Hematology - [place] 2[address] [facility] 200 [place] [address] Brant Ratliff MD 2[address] [facility] [address] [place] [address] documented as of this encounter Visit Diagnoses Not on filedocumented in this encounter Care Teams Maritime Officer Relationship Specialty Start Date End Date Elvis Lopez MD [address] [place] [address] [place] [address] PCP - General Family Practice 02/03/24 documented as of this encounter
--- OUTSIDE RECORDS SUMMARY | 2024-06-28 17:17 | XMS_ITS | Encounter Summary ---
Author Organization [facility] [employer] Address [address] [place] [address] Care Team Providers Care Wood Model Builder Name Role Phone Elvis Lopez MD Primary Care Provider [phone] Encounter Details Date Type Department Care Team (Late Contact Info) Description 03/08/2024 Orders Only [facility] Oncology and Hematology [facility] [address] [place] [address] Brant Ratliff MD [facility] [employer] [address] [place] [address] Social History Tobacco Use Types Packs/Day [...] st Contact Info) Description 07/14/2024 9:00 AM NEWS VIDEO EDITOR Office Visit [facility] Oncology and Hematology [place] [address] [place] [address] Brant Ratliff MD [address] [email or web address] [address] [place] [address] documented as of this encounter Procedures [...] on filedocumented in this encounter Care Teams Wood Model Builder Relationship Specialty Start Date End Date Elvis Lopez MD 34[address] [facility] [place] [address] PCP - General Family Practice 02/03/24 documented as of this encounter
--- OUTSIDE RECORDS SUMMARY | 2024-06-28 17:17 | XMS_ITS | Encounter Summary ---
Author Organization [facility] [employer] Address [address] [place] [address] Care Team Providers Care Typing Element Machine Operator Name Role Phone Elvis Lopez MD Primary Care Provider [phone] Encounter Details Date Type Department Care Team (Late Contact Info) Description 04/25/2024 Orders Only [facility] Oncology and Hematology [facility] [address] [place] [address] Brant Ratliff MD [address] [place], [place] [address] [address] [place] [address] Social History Tobacco Use Types Packs/Day [...] 9:00 AM ELECTRIC METER INSPECTOR Office Visit [facility] Oncology and Hematology [place] [address] [place] [address] Brant Ratliff MD [address] [facility] [employer] [address] [place] [address] documented as of this encounter Procedures Procedure Name Priority Date/Time Associated Diagnosis Comments BASIC METABOLIC PANEL Routine 04/25/2024 11:57 AM ELECTRIC METER INSPECTOR CBC WITH DIFFERENTIAL Routine 04/25/2024 11:56 AM ELECTRIC METER INSPECTOR documented in this encounter Results * BASIC METABOLIC PANEL (04/25/2024 11:57 AM ELECTRIC METER INSPECTOR) Blood Brant Ratliff MD CHEMISTRY ORDERABLES * CBC WITH DIFFERENTIAL (04/25/2024 11:56 AM ELECTRIC METER INSPECTOR) Blood Brant Ratliff MD HEMATOLOGY ORDERABLE S documented in this encounter Visit Diagnoses Not on filedocumented in this encounter Care Teams Typing Element Machine Operator Relationship Specialty Start Date End Date Elvis Lopez MD [facility] [place] [address] PCP - General Family Practice 02/03/24 documented as of this encounter
--- OUTSIDE RECORDS SUMMARY | 2024-06-28 17:18 | XMS_ITS | Encounter Summary ---
Author Organization [facility] [employer] Address [address] [place] [address] Care Team Providers Care Kayaking Instructor Name Role Phone Loc Whaley MD Primary Care Provider [phone] Reason for Visit * Reason Onset Date Comments medication questions with dosageand frequency Encounter Details Date Type Department Care Team (Late st Contact Info) Description 01/24/2024 Telephone [facility] Oncology and Hematology - [place] [address] [place] [address] Brant Ratliff MD [address] [facility] [address] [place] [address] medication questions with dosageand frequency [...] st Contact Info) Description 07/14/2024 9:00 AM SYSTEM SUPPORT TECHNICIAN Office Visit [facility] Oncology and Hematology - [place] [address] [facility] [address] [place] [address] Brant Ratliff MD 2227 [facility] [address] [place] [address] documented as of this encounter Visit Diagnoses Not on filedocumented in this encounter Care Teams Kayaking Instructor Relationship Specialty Start Date End Date oLc Whaley MD [address] [place] [phone] PCP - General Family Practice 11/22/20 02/02/24 documented as of this encounter
--- OUTSIDE RECORDS SUMMARY | 2024-06-28 17:18 | XMS_ITS | Encounter Summary ---
Author Organization [facility] Address [address] [place] [address] Care Team Providers Care Service Parts Driver Name Role Phone Loc Whaley MD Primary Care Provider [phone] Encounter Details Date Type Department Care Team (Late Contact Info) Description 01/13/2024 Specialty Pharmacy [facility] [address] [facility] [address] [place] [address] Sanjuanita Perez, PHARMACIST Specialty Pharmacy [...] Perez PHARMACIST - 01/13/2024 11:39 AM CDT [facility] Prior Authorization Approval Note Sloane Elise 1940 Name of medication, strength, formulation: REVLIMID 25 MG CAPSULE Quantity 14 for 21 days supply Prior authorization approval effective dates: from 01/13/24 to 01/12/25 Diagnosis & ICD 10 Code: C90 Per Treadle Cut Off Saw Operator: GINNY Additional information: $35 - WILL TRIAGE TO [facility] Approval letter scanned into chart. Completed by: JOSE Dukes documented in this encounter Plan of Treatment Upcoming Encounters Date Type Department Care Team (Late Contact Info) Description 07/14/2024 9:00 AM GRINDING AND POLISHING LABORER Office Visit [facility] Oncology and Hematology - [place] [address] [facility] [address] [place] [address] Brant Ratliff MD [address] [facility] [address] [place] [address] documented as of this encounter Visit Diagnoses Not on filedocumented in this encounter Care Teams Service Parts Driver Relationship Specialty Start Date End Date Loc Whaley MD [address] [place] [phone] PCP - General Family Practice 11/22/20 02/02/24 documented as of this encounter
--- OUTSIDE RECORDS SUMMARY | 2024-06-28 17:18 | XMS_ITS | Encounter Summary ---
Author Organization [facility] [employer] Address [address] [place] [address] Care Team Providers Care Monkey Breeder Name Role Phone Elvis Lopez MD Primary Care Provider [phone] Encounter Details Date Type Department Care Team (Late Contact Info) Description 01/31/2024 Orders Only [facility] Oncology and Hematology [facility] [address] [place] [address] Brant Ratliff MD [address] [place] [address] [employer] [address] [place] [address] Social History Tobacco Use Types Packs/Day [...] st Contact Info) Description 07/14/2024 9:00 AM CERAMIC CHEMIST Office Visit [facility] Oncology and Hematology [place] [address] [place] [address] [place] [address] [place] [address] [employer] [address] [place] [address] documented as of this encounter Procedures [...] on filedocumented in this encounter Care Teams Monkey Breeder Relationship Specialty Start Date End Date Elvis Lopez MD [facility] [place] [address] PCP - General Family Practice 02/03/24 documented as of this encounter
--- OUTSIDE RECORDS SUMMARY | 2024-06-28 17:18 | XMS_ITS | Encounter Summary ---
Author Organization [facility] Address [address] [place] [address] Care Team Providers Care Variety Lathe Operator Name Role Phone Unavailable Primary Care Provider Unavailabl e Encounter Details Date Type Department Care Team (Late st Contact Info) Description 11/07/2020 Orders Only [facility] Neurosurgery - [address] [address] [place] [address] Provider, Abstract NO ADDRESS ON [...] st Contact Info) Description 07/14/2024 9:00 AM MOLD YARD WORKER Office Visit [facility] Oncology and Hematology - [place] [address] [facility] [address] [place] [address] Brant Ratliff MD 2[address] [facility] [address] [place] [address] documented as of this encounter [...]
--- OUTSIDE RECORDS SUMMARY | 2024-06-28 17:18 | XMS_ITS | Encounter Summary ---
Author Organization [facility] Address [address] [place] [address] Care Team Providers Care Honey Grader And Blender Name Role Phone Loc Whaley MD Primary Care Provider [phone] Reason for Visit * Reason Comments LOW BACK PAIN Encounter Details Date Type Department Care Team (Late st Contact Info) Description 11/26/2020 2:00 PM CDT Office Visit [facility] [address] [address] [place] [address] [facility] [address] [place] [address] Fibromyalgia (Primary Dx); Spondylolisthesis at [...] Sloane today at my Neurosurgery Office at [facility]. Sloane is a 79 y.o.female who comes [...] seen by chronic pain services on the [place] side. They have tried injections over the [...] Gatherings with Friends and Family: ??? Attends Buddhist Services: ??? Active Member of Clubs or [...] D ??? fluticasone propionate (FLONASE) 50 mcg/spray [place], Suspension nasal inhaler ??? clobetasoL (TEMOVATE) 0.05 % Ointment Apply to affected area. ??? aspirin (ECOTRIN EC) 81 mg Tablet, Delayed Release (E.C.) Take 81 mg by mouth. ??? omega 0-aua-jrz-fish oil (Fish Oil) 100-160-1,000 mg Capsule Take [...] mouth daily at bedtime. ??? glucosam velasquez wvw-biszmyrxq-Q-Mn 903-300-81-3 mg Capsule ??? magnesium oxide (MAG-OX) 400 [...] st Contact Info) Description 07/14/2024 9:00 AM PAPER AND PULP MILL OPERATOR Office Visit [facility] Oncology and Hematology - [place] [address] [facility] [address] [place] [address] Brant Ratliff MD [address] [facility] [address] [place] [address] documented as of this encounter Visit Diagnoses Diagnosis Fibromyalgia- Primary Mylagia and myositis, unspecified Spondylolisthesis at L4-L5 level documented in this encounter Care Teams Honey Grader And Blender Relationship Specialty Start Date End Date Loc Whaley MD [address] [place] [address] PCP - General Family Practice 11/22/20 02/02/24 documented as of this encounter
--- OUTSIDE RECORDS SUMMARY | 2024-06-28 17:18 | XMS_ITS | Encounter Summary ---
Author Organization [facility] Address [address] [place] [address] Care Team Providers Care Professional Wrestler Name Role Phone Elvis Lopez MD Primary Care Provider [phone] Encounter Details Date Type Department Care Team [...] st Contact Info) Description 07/14/2024 9:00 AM TREE FRUIT AND NUT FARMING SUPERVISOR Office Visit [facility] Oncology and Hematology - [place] [address] [facility] [address] [place] [address] Brant Ratliff MD [address] [facility] [address] [place] [address] documented as of this encounter Visit Diagnoses Not on filedocumented in this encounter Care Teams Professional Wrestler Relationship Specialty Start Date End Date Elvis Lopez MD [address] [place] [address] [place] [address] PCP - General Family Practice 02/03/24 documented as of this encounter
--- OUTSIDE RECORDS SUMMARY | 2024-06-28 17:18 | XMS_ITS | Encounter Summary ---
Author Organization [facility] [employer] [facility] Address [address] [place] [address] Care Team Providers Care Ink Jet Operator Name Role Phone Elvis Lopez MD Primary Care Provider [phone] Reason for Visit * Reason Onset Date Comments Tremors 02/09/2024 Encounter Details Date Type Department Care Team (Late st Contact Info) Description 02/09/2024 Telephone [facility] Oncology and Hematology - [place] [address] [place] [address] Brant Ratliff MD [address] [employer] [facility] [address] [place] [address] Tremors Social History Tobacco Use [...] st Contact Info) Description 07/14/2024 9:00 AM MORNING NEWS PRODUCER Office Visit [facility] Oncology and Hematology - [place] [address] [facility] [address] [address] Brant Ratliff MD [address] [facility] [place] [address] [place] [address] documented as of this encounter Visit Diagnoses Not on filedocumented in this encounter Care Teams Ink Jet Operator Relationship Specialty Start Date End Date Elvis Lopez MD [address] [place] [address] [place] [address] PCP - General Family Practice 02/03/24 documented as of this encounter
--- OUTSIDE RECORDS SUMMARY | 2024-06-28 17:18 | XMS_ITS | Encounter Summary ---
Author Organization [facility] Address [address] [place] [address] Care Team Providers Care Shredding Machine Tender Name Role Phone Loc Whaley MD Primary Care Provider [phone] Encounter Details Date Type Department Care Team (Late st Contact Info) Description 01/14/2024 Specialty Pharmacy [facility] [address] [facility] [address] [place] [address] Sanjuanita Perez, PHARMACIST Specialty Pharmacy [...] Perez, PHARMACIST - 01/14/2024 1:20 PM CDT [facility] Referral Coordination Note Slo[place] Elise 1940 Name of medication, strength, formulation: REVLIMID 25 MG Please escribe to: Name of specialty pharmacy: [id number] [address] [facility] will contact prescriber to forward to [facility] specialty pharmacy. Yes [facility] will verify prescriber has sent to above specialty pharmacy. Yes [facility] will contact patient with above information and dis-enroll Yes SPOKE TO PATIENT WHO SAID SHE WAS NOT AWARE OF NEW TREATMENT PLAN, BUT HAS ALREADY GOTTEN A TEXT FROM [employer] ABOUT THE MED. SENT MESSAGE TO [facility] TO HAVE SOMEONE CALL HER TO GO OVER NEW TREATMENT PLAN. Completed by: JOSE Dukes documented in this encounter Plan of Treatment Upcoming Encounters Date Type Department Care Team (Late st Contact Info) Description 07/14/2024 9:00 AM SEO ENGINEER Office Visit [facility] Oncology and Hematology - [place] [address] [facility] 200 [place] [address] Brant Ratliff MD [address] [facility] [address] [place] [address] documented as of this encounter Visit Diagnoses Not on filedocumented in this encounter Care Teams Shredding Machine Tender Relationship Specialty Start Date End Date Loc Whaley MD [address] [place] [address] PCP - General Family Practice 11/22/20 02/02/24 documented as of this encounter
--- OUTSIDE RECORDS SUMMARY | 2024-06-28 17:18 | XMS_ITS | Encounter Summary ---
Author Organization [facility] Address [address] [place] [address] Care Team Providers Care Type Photography Supervisor Name Role Phone Elvis Lopez MD Primary Care Provider [phone] Encounter Details Date Type Department Care Team (Late st Contact Info) Description 09/25/2002 Outpatient Historical [facility] MRI DEPT Michael Hicks MD [address] [facility] [address] [place] [address] DEVIATED NASAL SEPTUM (Primary Dx) [...] st Contact Info) Description 07/14/2024 9:00 AM EHS ENGINEER Office Visit [facility] Oncology and Hematology - [place] [address] [facility] 200 [place] [address] Brant Ratliff MD 2227 [facility] [address] [place] [address] documented as of this encounter Visit Diagnoses Diagnosis Deviated nasal septum- Primary documented in this encounter Care Teams Type Photography Supervisor Relationship Specialty Start Date End Date Elvis Lopez MD [address] [place] [address] [place] [address] PCP - General Family Practice 02/03/24 documented as of this encounter
--- OUTSIDE RECORDS SUMMARY | 2024-06-28 17:18 | XMS_ITS | Encounter Summary ---
Author Organization [facility] Address [address] [place] [address] Care Team Providers Care Orange Grower Name Role Phone Loc Whaley MD Primary Care Provider [phone] Encounter Details Date Type Department Care Team [...] st Contact Info) Description 07/14/2024 9:00 AM POLICY WRITER SALES Office Visit [facility] Oncology and Hematology - [place] [address] [facility] [place] [facility] 200 [place] [address] Brant Ratliff MD [address] [facility] [address] [place] [address] documented as of this encounter Visit Diagnoses Not on filedocumented in this encounter Care Teams Orange Grower Relationship Specialty Start Date End Date Loc Whaley MD [address] [place] [address] PCP - General Family Practice 11/22/20 02/02/24 documented as of this encounter
--- OUTSIDE RECORDS SUMMARY | 2024-06-28 17:18 | XMS_ITS | Encounter Summary ---
Author Organization [facility] Address [address] [facility] Attn: Epic Prelude ADT RADHA TIERNEY [address] Care Team Providers Care Fashion Illustrator Name Role Phone Loc Whaley MD Primary Care Provider [phone] Encounter Details Date Type Department Care Team [...] st Contact Info) Description 07/14/2024 9:00 AM HISTORY PROFESSOR Office Visit [facility] Oncology and Hematology - [place] [address] [facility] [address] [place] [address] Brant Ratliff MD [address] [facility] [address] [place] [address] documented as of this encounter Visit Diagnoses Not on filedocumented in this encounter Care Teams Fashion Illustrator Relationship Specialty Start Date End Date Loc Whaley MD [address] [place] [address] PCP - General Family Practice 11/22/20 02/02/24 documented as of this encounter
--- OUTSIDE RECORDS SUMMARY | 2024-06-28 17:18 | XMS_ITS | Encounter Summary ---
Author Organization [facility] [employer] Address [address] [place] [address] Care Team Providers Care Branch Office Manager Name Role Phone Elvis Lopez MD Primary Care Provider [phone] Encounter Details Date Type Department Care Team (Late Contact Info) Description 02/03/2024 Orders Only [facility] [place] Oncology and [facility] [address] [place] [address] Brant Ratliff MD [address] [place] [address] Multiple myeloma not having achieved [...] st Contact Info) Description 07/14/2024 9:00 AM AIRCRAFT MAINTENANCE MANAGER Office Visit [facility] [place] Oncology [facility] Hematology [facility] [address] [place] [address] Brant Ratliff MD [address] [place] [address] Scheduled Orders Name Type Priority [...] remission documented in this encounter Care Teams Branch Office Manager Relationship Specialty Start Date End Date Elvis Lopez MD [address] [facility] [place] [address] PCP - General Family Practice 02/03/24 documented as of this encounter
--- OUTSIDE RECORDS SUMMARY | 2024-06-28 17:18 | XMS_ITS | Encounter Summary ---
Author Organization [facility] Address [address] [place] [address] Care Team Providers Care Tierce Filler Name Role Phone Unavailable Primary Care Provider Unavailabl e Encounter Details Date Type Department Care Team (Late st Contact Info) Description 11/06/2020 Abstract [facility] Neurosurgery - [address] [place] [address] Provider, Abstract NO ADDRESS ON [...] st Contact Info) Description 07/14/2024 9:00 AM HEMMER CHAINSTITCH Office Visit [facility] Oncology and Hematology - [place] [address] [place] [address] Brant Ratliff MD [address] [facility] [address] [place] [address] documented as of this encounter Visit Diagnoses Not on filedocumented in this encounter
--- OUTSIDE RECORDS SUMMARY | 2024-06-28 17:18 | XMS_ITS | Encounter Summary ---
Author Organization [facility] [email or web address] [facility] Address [address] [place] [address] Care Team Providers Care Franchise Broker Name Role Phone Loc Whaley MD Primary Care Provider [phone] Reason for Referral * PET Scan (Routine) - Closed Specialty Diagnoses / Procedures Referred By Contac t Referred To Contact Diagnoses Multiple myeloma not having achieved remission Procedures PET TUMOR IMG W CT SKB Brant Garcia MD [address] [employer] [address] [place] [address] [place] [address] Referral ID Status Reason Start Date Expiration Date V isits Requested Visits Authorized [id number] Closed STL CTS 01/18/2024 02/17/2025 1 1 Encounter Details Date Type Department Care Team (Late st Contact Info) Description 01/18/2024 3:45 PM CDT Telephone Check Up [facility]3] Oncology and Hematology [facility] [address] [place] [address] Brant Ratliff MD [address] [place] [address] Multiple myeloma not having achieved [...] 83 y.o. 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 Patient has a [...] st Contact Info) Description 07/14/2024 9:00 AM RADIO PERSONALITY Office Visit [facility]3] Oncology and Hematology [facility] [address] [facility] [address] [place] [address] Brant Ratliff MD [address] [facility] [address] [place] [address] Scheduled Orders Name Type Priority Associated Diagnoses Orde r Schedule PET TUMOR IMG W CT SKB MDTH Imaging Routine Multiple myeloma not having achieved remission Expected: 01/19/2024, Expires: 01/17/2025 documented as of this encounter Visit Diagnoses Diagnosis Multiple myeloma not having achieved remission- Primary Multiple myeloma, without mention of having achieved remission documented in this encounter Care Teams Franchise Broker Relationship Specialty Start Date End Date Loc Whaley MD [address] [place] [address] PCP - General Family Practice 11/22/20 02/02/24 documented as of this encounter
--- OUTSIDE RECORDS SUMMARY | 2024-06-28 17:18 | XMS_ITS | Encounter Summary ---
Author Organization [facility] Address [address] [place] [address] Care Team Providers Care Insulation Applicator Name Role Phone Loc Whaley MD Primary Care Provider [phone] Encounter Details Date Type Department Care Team [...] st Contact Info) Description 07/14/2024 9:00 AM AUTOMOTIVE TIRE TESTING SUPERVISOR Office Visit [facility] Oncology and Hematology - [place] [address] [facility] [address] [place] [address] Brant Ratliff MD [address] [facility] [address] [place] [address] documented as of this encounter Visit Diagnoses Not on filedocumented in this encounter Care Teams Insulation Applicator Relationship Specialty Start Date End Date Loc Whaley MD [address] [place] [phone] PCP - General Family Practice 11/22/20 02/02/24 documented as of this encounter
--- OUTSIDE RECORDS SUMMARY | 2024-06-28 17:18 | XMS_ITS | Encounter Summary ---
Author Organization [facility] [employer] Address [address] [place] [address] Care Team Providers Care Quill Cleaner Name Role Phone Loc Whaley MD Primary Care Provider [phone] Reason for Visit * Reason Comments Cancer Establish Care Encounter Details Date Type Department Care Team (Late st Contact Info) Description 01/11/2024 10:30 AM CDT Office Visit [facility] Oncology and Hematology - [place] [address] [place] [address] Brant Ratliff MD [address] [facility] [address] [place] [address] Multiple myeloma not having achieved [...] almost [address] Pittman's care home patient was seen by Dr. Todd in [...] ORAL) Take by mouth. VIT B COMP NO.2-GKEYC-L-BIOTIN ORAL Take by mouth. dextromethorphan-guaiFENesin (MUCINEX DM) [...] tablet TK 1 T PO QD omega 5-lwu-inh-fish oil (Fish Oil) 100-160-1,000 mg Capsule Take [...] (Pf) Unknown Diclofenac Unknown Doxycycline Monohydrate Unknown Ydngsqkos-Bxu-Wf-Acetaminophen Unknown Duloxetine Unknown Levofloxacin Unknown Meperidine Unknown [...] dysuria; no frequency; no hesitancy; no hematuria J2EE APPLICATION DEVELOPER: Musculosketetal: Patient did not mention bone pain; [...] performance status 2 Assessment / Plan: ? 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 Patient has a [...] of the total time spent counseling patient telq-wi-kbzs. CC:?Loc Whaley MD documented in this encounter Plan of Treatment Upcoming Encounters Date Type Department Care Team (Late st Contact Info) Description 07/14/2024 9:00 AM CHIEF MEDICAL DIRECTOR Office Visit [facility] Oncology and [facility]ology [facility] [address] [place] [address] [facility] [address] [place] [address] Brant Ratliff MD [address] [facility] [address] [place] [address] documented as of this encounter Visit Diagnoses Diagnosis Multiple myeloma not having achieved remission- Primary Multiple myeloma, without mention of having achieved remission documented in this encounter Care Teams Quill Cleaner Relationship Specialty Start Date End Date Loc Whaley MD [address] [place] [phone] PCP - General Family Practice 11/22/20 02/02/24 documented as of this encounter
--- OUTSIDE RECORDS SUMMARY | 2024-06-28 17:18 | XMS_ITS | Encounter Summary ---
Author Organization [facility] [facility] Address [address] [place] [address] Care Team Providers Care Church Warden Name Role Phone Elvis Lopez MD Primary Care Provider [phone] Reason for Visit * Reason Onset Date Comments Medication Refill 02/09/2024 Encounter Details Date Type Department Care Team (Late Contact Info) Description 02/09/2024 Refill [facility] Oncology and Hematology [place] [address] [place] [address] Brant Ratliff MD [address] [place] [address] [address] [place] [address] Social History Tobacco Use Types Packs/Day [...] (Late Contact Info) Description 07/14/2024 9:00 AM DIRECT SERVICE WORKER Office Visit [facility] Oncology and Hematology [place] [address] [place] [address] Brant Ratliff MD [facility] [address] [place] [address] documented as of this encounter Visit Diagnoses Not on filedocumented in this encounter Care Teams Church Warden Relationship Specialty Start Date End Date Elvis Lopez MD [address] [place] [address] PCP - General Family Practice 02/03/24 documented as of this encounter
--- OUTSIDE RECORDS SUMMARY | 2024-06-28 17:18 | XMS_ITS | Encounter Summary ---
Author Organization [facility] Address [address] [place] [address] Care Team Providers Care Lecturer In Marketing Name Role Phone Loc Whaley MD Primary Care Provider [phone] Reason for Referral * Eval and Treat (Routine) - Closed Specialty Diagnoses / Procedures Referred By Sharlene uriarte Referred To Contact Oncology Diagnoses Multiple myeloma not having achieved remission Procedures NH OFFICE/OUTPATIENT ESTABLISHED MOD MDM 30 MIN NH OFFICE/OUTPATIENT NEW MODERATE MDM 45 MINUTES Brant Ratliff MD [address] [employer] [address] [place] [address] [place] [address] Referral ID Status Reason Start Date Expiration Date V isits Requested Visits Authorized [id number] Closed STL CTS 01/12/2024 01/12/2025 1 1 * Eval and Treat (Routine) - Closed Specialty Diagnoses / Procedures Referred By Sharlene t Referred To Contact Surgery Diagnoses Multiple myeloma not having achieved remission Procedures NH OFFICE/OUTPATIENT ESTABLISHED MOD MDM 30 MIN [place] OFFICE/OUTPATIENT NEW MODERATE MDM 45 MINUTES Brant Ratliff MD [address] [employer] [address] [place] [address] Karan Dean DO [address] [facility] [address] [place] [address] Referral ID Status Reason Start Date Expiration Date V isits Requested Visits Authorized [id number] Closed STL CTS 01/12/2024 01/11/2025 1 1 Encounter Details Date Type Department Care Team (Late Contact Info) Description 01/12/2024 Orders Only [facility] Oncology [facility] [address] [place] [address] [place] [address] [place] [address] Multiple myeloma not having achieved remission [...] (Late Contact Info) Description 07/14/2024 9:00 AM HOGSHEAD HOOPER Office Visit [facility] Oncology [facility] [address] [place] [address] Brant Ratliff MD [address] [place] [address] Scheduled Orders Name Type Priority Associated [...] unspecified documented in this encounter Care Teams Lecturer In Marketing Relationship Specialty Start Date End Date Loc Whaley MD [address] [place] [address] PCP - General Family Practice 11/22/20 02/02/24 documented as of this encounter
--- OUTSIDE RECORDS SUMMARY | 2024-06-28 17:18 | XMS_ITS | Encounter Summary ---
Author Organization [facility] [facility] Address [address] [place] [address] Care Team Providers Care Scallop Dredger Name Role Phone Elvis Lopez MD Primary Care Provider [phone] Reason for Visit * Reason Comments Med Refill Encounter Details Date Type Department Care Team ([facility] Contact Info) Description 02/04/2024 Refill [facility] Oncology and Hematology [place] [address] [place] [address] Brant Ratliff MD [address] [place] [address] [employer] [address] [place] [address] Social History Tobacco Use Types Packs/Day [...] (Late Contact Info) Description 07/14/2024 9:00 AM VICE PRESIDENT EDUCATION Office Visit [facility] Oncology and Hematology [place] [address] [place] [address] Brant Ratliff MD [address] [place] [address] [employer] [address] [place] [address] documented as of this encounter Visit Diagnoses Not on filedocumented in this encounter Care Teams Scallop Dredger Relationship Specialty Start Date End Date Elvis Lopez MD [address] [facility] [place] [address] PCP - General Family Practice 02/03/24 documented as of this encounter
--- OUTSIDE RECORDS SUMMARY | 2024-06-28 17:18 | XMS_ITS | Encounter Summary ---
Author Organization [facility] Address [address] [place] [address] Care Team Providers Care Marketing Program Coordinator Name Role Phone Elvis Lopez MD Primary Care Provider [phone] Encounter Details Date Type Department Care Team [...] st Contact Info) Description 07/14/2024 9:00 AM TRENCH DIGGING MACHINE OPERATOR Office Visit [facility] Oncology and Hematology - [place] [address] [facility] [address] [place] [address] Brant Ratliff MD [address] [facility] [address] [place] [address] documented as of this encounter Visit Diagnoses Not on filedocumented in this encounter Care Teams Marketing Program Coordinator Relationship Specialty Start Date End Date Elvis Lopez MD [address] [place] [address] [place] [address] PCP - General Family Practice 02/03/24 documented as of this encounter
--- OUTSIDE RECORDS SUMMARY | 2024-06-28 17:18 | XMS_ITS | Encounter Summary ---
Author Organization [facility] [employer] Address [address] [place] [address] Care Team Providers Care Credit Products Officer Name Role Phone Loc Whaley MD Primary Care Provider [phone] Reason for Visit * Reason Onset Date Comments Medication Refill 01/14/2024 Encounter Details Date Type Department Care Team ([facility] Contact Info) Description 01/14/2024 Refill [facility] Oncology and Hematology [place] [address] [place] [address] Brant Ratliff MD [address] [place] [address] [place] [address] Social History Tobacco Use Types Packs/Day [...] (Late Contact Info) Description 07/14/2024 9:00 AM FACILITY TECHNICIAN Office Visit [facility] Oncology [facility] Hematology [place] [address] [place] [address] Brant Ratliff MD [address] [place] [address] [employer] [address] [place] [address] documented as of this encounter Visit Diagnoses Not on filedocumented in this encounter Care Teams Credit Products Officer Relationship Specialty Start Date End Date Loc Whaley MD [address] [place] [address] PCP - General Family Practice 11/22/20 02/02/24 documented as of this encounter
--- OUTSIDE RECORDS SUMMARY | 2024-06-28 17:18 | XMS_ITS | Encounter Summary ---
Author Organization [facility] Address [address] [place] [address] Care Team Providers Care Debone Supervisor Name Role Phone Loc Whaley MD Primary Care Provider [phone] Encounter Details Date Type Department Care Team (Late Contact Info) Description 11/28/2020 Abstract [facility] SPINE AND PAIN MANAGEMENT [address] [address] Provider, Abstract NO ADDRESS ON [...] (Late Contact Info) Description 07/14/2024 9:00 AM TECHNOLOGY EDUCATION TEACHER Office Visit [facility] Oncology and Hematology - [place] [address] [facility] [address] [place] [address] Brant Ratliff MD [address] [facility] [address] [place] [address] documented as of this encounter Visit Diagnoses Not on filedocumented in this encounter Care Teams Debone Supervisor Relationship Specialty Start Date End Date Loc Whaley MD [address] [place] [address] PCP - General Family Practice 11/22/20 02/02/24 documented as of this encounter
--- OUTSIDE RECORDS SUMMARY | 2024-06-28 17:18 | XMS_ITS | Encounter Summary ---
Author Organization [facility] [employer] Address [address] [place] [address] Care Team Providers Care Strap Sewer Name Role Phone Loc Whaley MD Primary Care Provider [phone] Encounter Details Date Type Department Care Team (Late Contact Info) Description 01/14/2024 Orders Only [facility] Oncology and Hematology [facility] [address] [place] [address] Brant Ratliff MD [address] [employer] [address] [place] [address] Multiple myeloma not having achieved remission [...] (Late Contact Info) Description 07/14/2024 9:00 AM TRANSACTIONAL PARALEGAL Office Visit [facility] Oncology and Hematology [place] [address] [place] [address] Brant Ratliff MD [address] [employer] [address] [place] [address] Scheduled Orders Name Type Priority Associated Diagnoses Orde r Schedule DIRECT ANTIGLOBULIN TEST W/REFLEX Blood Bank Routine Multiple myeloma not having achieved remission Expected: 01/14/2024, Expires: 01/13/2025 documented as of this encounter Visit Diagnoses Diagnosis Multiple myeloma not having achieved remission- Primary Multiple myeloma, without mention of having achieved remission documented in this encounter Care Teams Strap Sewer Relationship Specialty Start Date End Date Loc Whaley MD [address] [place] [address] PCP - General Family Practice 11/22/20 02/02/24 documented as of this encounter
--- OUTSIDE RECORDS SUMMARY | 2024-06-28 17:18 | XMS_ITS | Encounter Summary ---
Author Organization [facility] [employer] [facility] Address [address] [place] [address] Care Team Providers Care International Specialist Name Role Phone Elvis Lopez MD Primary Care Provider Reason for Referral * Eval and Treat (Routine) - Closed Specialty Diagnoses / Procedures Referred By Sharlene uriarte Referred To Contact Oncology Diagnoses Multiple myeloma not having achieved remission Procedures ME OFFICE/OUTPATIENT ESTABLISHED MOD MDM 30 MIN ME OFFICE/OUTPATIENT NEW MODERATE MDM 45 MINUTES Brant Ratliff MD [address] [employer] [address] [place] [address] Referral ID Status Reason Start Date Expiration Date V isits Requested Visits Authorized [id number] Closed STL CTS 02/03/2024 02/03/2025 1 1 Reason for Visit * Reason Comments Chemotherapy Follow Up Encounter Details Date Type Department Care Team (Late st Contact Info) Description 02/03/2024 8:45 AM CDT Office Visit [facility] Oncology and Hematology - [place] [address] [facility] [address] [place] [address] Brant Ratliff MD [address] [employer] [address] [place] [address] Multiple myeloma not having achieved remission [...] 83 y.o. 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 Patient has a [...] Contact Info) Description 07/14/2024 9:00 AM LEATHER SPLITTER Office Visit [facility] Oncology and Hematology [facility] [address] [facility] 200 [place] [address] Brant Ratliff MD [address] [facility] [address] [place] [address] Scheduled Orders Name Type Priority [...] remission documented in this encounter Care Teams International Specialist Relationship Specialty Start Date End Date Elvis Lopez MD [address] [facility] [place] [address] PCP - General Family Practice 02/03/24 documented as of this encounter
--- OUTSIDE RECORDS SUMMARY | 2024-06-28 17:18 | XMS_ITS | Encounter Summary ---
Author Organization [facility] Address [address] [place] [address] Care Team Providers Care Process Expert Name Role Phone Loc Whaley MD Primary Care Provider [phone] Encounter Details Date Type Department Care Team (Late Contact Info) Description 11/28/2020 Abstract [facility] SPINE AND PAIN MANAGEMENT [address] [address] Provider, Abstract NO ADDRESS ON [...] (Late Contact Info) Description 07/14/2024 9:00 AM PHARMACY BILLING ADJUDICATOR Office Visit [facility] Oncology and Hematology - [place] [address] [facility] [address] [place] [address] Brant Ratliff MD [address] [facility] [address] [place] [address] documented as of this encounter Visit Diagnoses Not on filedocumented in this encounter Care Teams Process Expert Relationship Specialty Start Date End Date Loc Whaley MD [address] [place] [address] PCP - General Family Practice 11/22/20 02/02/24 documented as of this encounter
--- OUTSIDE RECORDS SUMMARY | 2024-06-28 17:18 | XMS_ITS | Encounter Summary ---
Author Organization [facility] [employer] Address [address] [place] [address] Care Team Providers Care Maori Liaison Adviser Name Role Phone Loc Whaley MD Primary Care Provider [phone] Reason for Visit * Reason Onset Date Comments PET Scan 01/19/2024 Spoke w/ patient to provide PET Scan appt info @ [facility] (01/27/24 @ 930am w/ 9am arrival time) Encounter Details Date Type Department Care Team (Late st Contact Info) Description 01/19/2024 Telephone [facility] Oncology and Hematology [facility] [address] [facility] [address] [place] [address] Brant Ratliff MD [address] [facility] [address] [place] [address] PET Scan (Spoke w/ patient to provide PET Scan appt info @ [facility] (01/27/24 @ 930am w/ 9am arrival time) [...] to provide PET Scan appt info @ [facility] (01/27/24 @ 930am w/ 9am arrival time) 6hr fast, no coffee, caffeine, or sugar 24hrs prior to appt Patient was then transferred to [place] Scheduling dept to request [facility], rather than [facility]. documented in this encounter Plan of Treatment Upcoming Encounters Date Type Department Care Team (Late st Contact Info) Description 07/14/2024 9:00 AM DIRECTOR LONG TERM CARE Office Visit [facility] Oncology and Hematology - [place] [facility] [address] [place] [address] Brant Ratliff MD [address] [facility] [facility] [address] [place] [address] documented as of this encounter Visit Diagnoses Not on filedocumented in this encounter Care Teams Maori Liaison Adviser Relationship Specialty Start Date End Date Loc Whaley MD [address] [place] [id number] PCP - General Family Practice 11/22/20 02/02/24 documented as of this encounter
[2024-06-28] MEDS: MILNACIPRAN 25 MG 25 EACH PO (17:43)
[2024-06-28] MEDS: ramipriL 5 MG CAPSULE 10 MG PO (17:43)
[2024-06-28] MEDS: MELATONIN 5 MG TABLET PO (20:25)
[2024-06-28] MEDS: diphenhydrAMINE HCl INJ 50 MG/ML VIAL 25 MG IV PUSH (21:58)
[2024-06-29] VITALS (10 sets, daily range): BP systolic 110–144; BP diastolic 56–57; PULSE 67–95; RESP 16–18; TEMP 36.3–36.9; O2SAT 98–100
[2024-06-29] MEDS: WATER FOR IRRIGATION, STERILE 500 ML BOTTLE (01:15)
[2024-06-29] MEDS: LEVOTHYROXINE SODIUM 50 MCG TABLET PO (06:06)
[2024-06-29 08:02] LABS: Glucose Point of Care 120 mg/dl (65-105)
[2024-06-29] MEDS: METRONIDAZOLE 1% TOPICAL ×2 (09:00→20:44)
[2024-06-29] MEDS: PUMP TOPICAL ×2 (09:00→20:44)
[2024-06-29 09:38] LABS: Basophils Absolute Auto 0.1 K/mm3 (0.0-0.1); Eosinophils Absolute Auto 0.1 K/mm3 (0-0.3); Hematocrit 35.6 % (37.0-47.0); Immature Granulocyte Absolute 0.02 K/mm3 (0.00-0.031); Immature Granulocyte Percent A 0.5 % (0-0.5); Lymphocytes Absolute Auto 1.03 K/mm3 (0.9-3.2); Lymphocytes Percent Auto 23.4 % (18.3-44.2); Mean Corpuscular HGB Conc 30.9 g/dl (32-36); Mean Corpuscular Hemoglobin 32.3 pg (26-34); Mean Corpuscular Volume 104.4 fl (80-100); Mean Platelet Volume 10.3 fl (7.4-10.4); Monocytes Absolute Auto 0.7 K/mm3 (0.1-0.6); Monocytes Percent Auto 15.7 % (2.6-8.5); Neutrophils Absolute Auto 2.4 K/mm3 (1.3-6.7); Neutrophils Percent Auto 55.4 % (45.5-73.1); Nucleated Red Blood Cells Perc 0.5 % (0.0-0.2); Platelet Count Result 169 k/mm3 (150-375); Red Blood Count 3.41 M/mm3 (4.2-5.4); Red Cell Distribution Width 16.7 % (11.5-14.5); White Blood Count 4.4 K/mm3 (4.5-10.0)
[2024-06-29 09:59] LABS: Alanine Aminotransferase 19 U/L (6-35); Albumin Level 3.8 g/dL (3.5-5.1); Alkaline Phosphatase 48 U/L (38-126); Anion Gap 10 mmol/L (4-12); Aspartate Amino Transferase 21 U/L (14-36); Bilirubin,Total 0.7 mg/dL (0.2-1.3); Blood Urea Nitrogen 16 mg/dL (7-17); Carbon Dioxide 20 mmol/L (22-30); Chloride 103 mmol/L (98-107); Estimated CRCL calculation 54 ml/min; Estimated Glomerular Filt Rate > 60; Glucose 135 mg/dL (65-110); Magnesium 2.1 mg/dL (1.6-2.3); Potassium 3.1 mmol/L (3.4-5.0); Sodium 133 mmol/L (137-145)
[2024-06-29] MEDS: POTASSIUM CHLORIDE 20 MEQ ER TABLET 40 MEQ PO (10:26)
[2024-06-29] MEDS: hydroCHLOROthiazide 25 MG TABLET BY MOUTH (10:27)
[2024-06-29] MEDS: PANTOPRAZOLE 40 MG TABLET PO (10:27)
[2024-06-29] MEDS: METOPROLOL SUCCINATE EXT REL 100 MG TABCR PO (10:28)
[2024-06-29] MEDS: MONTELUKAST SODIUM 10 MG TABLET PO (10:28)
[2024-06-29] MEDS: ENOXAPARIN 40 MG/0.4 ML SYRINGE SUB-Q (10:33)
[2024-06-29 12:44] LABS: Glucose Point of Care 110 mg/dl (65-105)
--- NOTE | 2024-06-29 13:55 | P.PNIM_ITS ---
Progress Note: A&P Assessment and Plan (1) Diarrhea: Code(s): R19.7 - Diarrhea, unspecified Status: Acute Assessment and Plan: Patient continues to have several episodes of diarrhea and a lack of appetite. Denies abdominal pain. Benign exam. - C dif negative - Stool culture ordered (2) Myeloma: Code(s): C90.00 - Multiple myeloma not having achieved remission Status: Acute Assessment and Plan: White cell of 4.4 today. Afebrile, no sign of infection. H/H 10.2/31.3. PLT 191. Neutropenic precautions Antibiotics: vancomycin, metronidazole, cefepime prophylactically, Nasal MRSA negative and vanc DC. Transitioned to Augmentin, course to be completed on 06/28. Watch for any abnormal vitals Heme/onc consulted Serum protein immunoelectrophoresis Discontinue lenalidomide and dexamethasone for now. Dex not discontinued due to the risk of adrenal crisis. Patient was advised after discharge that she needs to go to PCP and Heme-Onc () to get the bottles and verify with both them what medications she is taking. (3) Ileus: Code(s): K56.7 - Ileus, unspecified Status: Acute Assessment and Plan: Chest/abdomen/pelvis CT 06/21: Mild dilation of a loop of jejunum in the mid abdomen, presumably secondary to focal ileus. Early obstruction not excluded. - antibiotics: flagyl transitioned to augmentin, course to be completed on 06/28 - Diet: advanced back to regular diet - Monitor vital signs, I&Os, track stool output, watch for bloody stools, neuro status and patient is a fall risk - Monitor serum electrolytes and CBC - Surgery consulted, appreciate recommendations exam is largely benign, continue to encourage p.o., PT/OT, out of bed, continue serial exams signed off on 06/24 KUB 06/23: Nonspecific bowel gas pattern. Resolved. (4) Essential (primary) hypertension: Code(s): I10 - Essential (primary) hypertension Status: Acute Assessment and Plan: Chronic, continue home medications - HCTZ 25 mg daily - Metoprolol 100 mg daily - Ramipril 10 mg daily - Hydralazine 10 mg IV q6H prn for BP > 160 - Monitor (5) Hypothyroidism: Qualifiers: Hypothyroidism type: acquired Qualified Code(s): E03.9 - Hypothyroidism, unspecified Code(s): E03.9 - Hypothyroidism, unspecified Status: Acute Assessment and Plan: Chronic, continue home synthroid 50 mcg daily Time Spent With Patient Time with patient: 25 - 35 minutes Subjective Date/time seen: 06/29/24 13:55 Interval history: 83-year-old female with history of multiple myeloma on chemotherapy present to the hospital for nausea/vomiting and diarrhea. Patient is pleasant lying in bed. She continues to have multiple episodes of diarrhea and has not eaten anything other than crackers and fruit since admission. She denies nausea but notes that she just cannot eat the food. She has no other complaints denying chest pain, shortness of breath, palpitations, and abdominal pain. Review of Systems Review of Systems: All systems reviewed & are unremarkable except as noted in HPI and below Exam Narrative: AF HR 76 RR 18 SPO2 100 BP 139/57 General: female in no acute respiratory distress who is nontoxic appearing, lying semi recumbent in bed. HEENT: Normocephalic. Atraumatic. Extraocular movement intact. Sclera clear and anicteric. No facial asymmetry. Chest: Lungs are clear to auscultation bilaterlly. No wheezes or crackles. CV: Heart was regular rate and rhythm. S1-S2. No murmurs, gallops, or rubs. Abd: Abdomen was soft. Nontender. Nondistended. Positive bowel sounds. Ext: No clubbing, cyanosis, or edema. 2+ DP pulses bilaterally. Neuro: Patient is alert and oriented x4. Cranial nerves 2-12 are intact. Speech is clear. Objective Data Vital Signs Vital Signs: Vital Signs - 24 hr 06/28/24 16:00 06/28/24 20:00 06/28/24 20:00 Temperature Pulse Rate 94 77 Respiratory Rate Blood Pressure Pulse Oximetry Oxygen Delivery Room Air 06/28/24 20:21 06/29/24 00:00 06/29/24 02:43 Temperature 98.2 F Pulse Rate 88 72 Respiratory Rate 16 Blood Pressure 169/66 H Pulse Oximetry 98 Oxygen Delivery CPAP 06/29/24 04:00 06/29/24 05:42 06/29/24 08:00 Temperature 98.5 F Pulse Rate 68 67 95 Respiratory Rate 18 Blood Pressure 139/57 L Pulse Oximetry 100 Oxygen Delivery 06/29/24 10:28 06/29/24 12:00 Temperature Pulse Rate 76 76 Respiratory Rate Blood Pressure Pulse Oximetry Oxygen Delivery Intake/Output Intake/Output: Intake & Output 06/26/24 06/27/24 06/28/24 06/29/24 23:59 23:59 23:59 23:59 Intake Total 870 1470 1447 1197 Balance 870 1470 1447 1197 Meds/Results Medications: Active Medications Generic Name Dose Route Start Last Admin Trade Name Freq PRN Reason Stop Dose Admin Acetaminophen 650 mg 06/22/24 13:55 06/28/24 20:26 Acetaminophen 325 Mg Tablet PO 650 mg Q4H PRN Administration Mild Pain (1-3) or Fever Dexamethasone 20 mg 06/26/24 09:00 06/26/24 08:34 Dexamethasone 4 Mg Tablet PO Not Given Mo@0900 EZRA Dextrose 12.5 gm 06/22/24 18:54 Dextrose 50% 25 Gm/50 Ml Syringe IV PUSH PRN PRN Hypoglycemia Protocol Diphenhydramine HCl 25 mg 06/23/24 18:10 06/28/24 21:58 Diphenhydramine Hcl Inj 50 Mg/Ml Vial IV PUSH 25 mg Q4H PRN Administration Itching Enoxaparin Sodium 40 mg 06/23/24 09:00 06/29/24 10:33 Enoxaparin 40 Mg/0.4 Ml Syringe SUB-Q 40 mg DAILY EZRA Administration Glucagon 1 mg 06/22/24 18:54 Glucagon For Inj 1 Mg Vial IM PRN PRN Hypoglycemia Protocol Glucose 15 gm 06/22/24 18:54 Glucose Oral Gel 15 Gm Of Glucse In 37.5 Gm Tube PO PRN PRN Hypoglycemia Protocol Hydralazine HCl 10 mg 06/23/24 11:54 06/23/24 13:10 Hydralazine Hcl 20 Mg/Ml Vial IV PUSH 10 mg Q8H PRN Administration Blood Pressure - High Hydrochlorothiazide 25 mg 06/23/24 09:00 06/29/24 10:27 Hydrochlorothiazide 25 Mg Tablet BY MOUTH 25 mg DAILY EZRA Administration Dextrose 1,000 mls @ 100 mls/hr 06/22/24 18:54 Dextrose 5% 1,000 Ml IVPB PRN PRN Hypoglycemia Protocol Ibuprofen 600 mg 06/23/24 00:21 06/27/24 21:01 Ibuprofen 600 Mg Tablet PO 600 mg Q6H PRN Administration Cramping Insulin Aspart 2 - 5 units 06/23/24 08:00 06/29/24 13:13 Insulin Aspart (*Bkc) 100 Units/Ml SUB-Q Not Given TIDWM [facility] Protocol Levothyroxine Sodium 50 mcg 06/23/24 06:30 06/29/24 06:06 Levothyroxine Sodium 50 Mcg Tablet PO 50 mcg DAILY@0630 EZRA Administration Lidocaine 1 patch 06/23/24 09:00 06/28/24 09:47 Lidocaine 5% Patch TOPICAL 1 patch DAILY EZRA Administration Lidocaine/Prilocaine 1 each 06/22/24 18:23 Lidocaine/Prilocaine Cream 2.5-2.5% Tube TOPICAL PRN PRN Port Access Melatonin 5 mg 06/22/24 23:40 06/28/24 20:25 Melatonin 5 Mg Tablet PO 5 mg HS EZRA Administration Metoprolol Succinate 100 mg 06/23/24 09:00 06/29/24 10:28 Metoprolol Succinate Ext Rel 100 Mg Tabcr PO 100 mg DAILY EZRA Administration Montelukast Sodium 10 mg 06/23/24 09:00 06/29/24 10:28 Montelukast Sodium 10 Mg Tablet PO 10 mg DAILY EZRA Administration Morphine Sulfate 1 mg 06/23/24 18:10 06/25/24 20:46 Morphine Sulfate (*Crx) 2 Mg/Ml Inj IV PUSH 1 mg Q4H PRN Administration Pain Rated 7-10 Multi-Ingred Cream/Lotion/Oil/Oint 1 applic 06/22/24 21:00 Mineral Oil/White Petrolatum Ointment EACH EYE Q12H PRN Dry Eyes Multivitamins Therapeutic 1 tablet 06/23/24 09:00 06/29/24 13:12 Multivitamins Therapeutic Tab (*Bkc) PO Not Given DAILY EZRA Home Med ( 1 applic 06/24/24 21:00 06/29/24 09:00 Metronidazole 1 % TOPICAL 07/24/24 20:59 1 applic Gel With Pump) Q12HR EZRA Administration Home Med ( 25 mg 06/24/24 17:00 06/28/24 17:43 Milnacipran [Savella PO 07/24/24 16:59 25 mg ] 25 Mg Tablet) DAILY@1700 EZRA Administration Ondansetron HCl 4 mg 06/22/24 10:19 06/28/24 20:27 Ondansetron Inj 4 Mg/2 Ml Vial IV PUSH 4 mg Q6H PRN Administration Nausea And Vomiting Ondansetron HCl 4 mg 06/22/24 17:21 06/28/24 13:06 Ondansetron Inj 4 Mg/2 Ml Vial IV PUSH 4 mg Q4H PRN Administration Nausea And Vomiting Ondansetron HCl 8 mg 06/22/24 19:11 Ondansetron Hcl Odt 4 Mg Tablet PO Q8H PRN Nausea And Vomiting Pantoprazole Sodium 40 mg 06/24/24 10:35 06/29/24 10:27 Pantoprazole 40 Mg Tablet PO 40 mg QAM EZRA Administration Ramipril 10 mg 06/24/24 17:00 06/28/24 17:43 Ramipril 5 Mg Capsule PO 10 mg 1700 EZRA Administration Radiology Results: ITS Impressions Head CT 06/21/24 20:54 IMPRESSION: No acute intracranial process. Chest/Abdomen/Pelvis CT 06/21/24 20:56 IMPRESSION: Mild esophagitis/gastritis. Mild dilation of a loop of jejunum in the mid abdomen, presumably secondary to focal ileus. Early obstruction not excluded. Multiple pancreatic cysts measuring up to 1.2 cm, demonstrating interval growth since 08/10/2020 examination. Consider follow-up with contrast enhanced MRI or pancreas protocol CT in one year, depending on the patient's overall health and preferences and if a surgical candidate. Severe disc space narrowing at L3-4 with erosive changes, may be secondary to osteomyelitis/discitis, neuropathic changes, or inflammatory arthropathy. Consider MR lumbar spine without and with contrast. Lumbar Spine MRI 06/22/24 13:57 IMPRESSION: 1. Severe lumbar spondylosis, advanced with Modic type III degenerative endplate changes at L3-L4. No findings to suggest discitis or osteomyelitis. 2. Diffuse heterogeneous marrow signal which could represent combination of red and yellow marrow or be related to reported known multiple myeloma. Chest X-Ray 06/22/24 21:31 IMPRESSION: Left basilar atelectasis versus pneumonia. Abdomen X-Ray 06/23/24 05:50 Impression: Nonspecific bowel gas pattern. Labs Labs: Laboratory Results - last 24 hr 06/28/24 06/29/24 06/29/24 13:00 07:55 09:03 WBC 4.4 L RBC 3.41 L Hgb 11.0 L Hct 35.6 L MCV 104.4 H D MCH 32.3 MCHC 30.9 L RDW 16.7 H Plt Count 169 MPV 10.3 Immature Gran % (Auto) 0.5 Neut % (Auto) 55.4 Lymph % (Auto) 23.4 [place] % (Auto) 15.7 H Eos % (Auto) 3.0 Baso % (Auto) 2.0 H Lymph # (Auto) 1.03 [place] # (Auto) 0.7 H Eos # (Auto) 0.1 Baso # (Auto) 0.1 Abs Immat Gran (auto) 0.02 Absolute Neuts (auto) 2.4 Absolute Nucleated RBC 0.020 H Nucleated RBC % 0.5 H Sodium 133 L Potassium 3.1 L Chloride 103 Carbon Dioxide 20 L Anion Gap 10 BUN 16 Creatinine 0.82 Estim Creat Clear Calc 54 Estimated GFR > 60 Glucose 135 H POC Capillary Glucose 120 H Calcium 8.0 L Magnesium 2.1 Total Bilirubin 0.7 AST 21 ALT 19 Alkaline Phosphatase 48 Total Protein 6.0 L Albumin 3.8 C. difficile (PCR) Negative 06/29/24 12:41 WBC RBC Hgb Hct MCV MCH MCHC RDW Plt Count MPV Immature Gran % (Auto) Neut % (Auto) Lymph % (Auto) [place] % (Auto) Eos % (Auto) Baso % (Auto) Lymph # (Auto) [place] # (Auto) Eos # (Auto) Baso # (Auto) Abs Immat Gran (auto) Absolute Neuts (auto) Absolute Nucleated RBC Nucleated RBC % Sodium Potassium Chloride Carbon Dioxide Anion Gap BUN Creatinine Estim Creat Clear Calc Estimated GFR Glucose POC Capillary Glucose 110 H Calcium Magnesium Total Bilirubin AST ALT Alkaline Phosphatase Total Protein Albumin C. difficile (PCR) Quality VTE Prophylaxis VTE prophylaxis: pharmacologic ordered
[2024-06-29] MEDS: ramipriL 5 MG CAPSULE 10 MG PO (16:46)
[2024-06-29] MEDS: MILNACIPRAN 25 MG 25 EACH PO (16:47)
[2024-06-29] MEDS: MELATONIN 5 MG TABLET PO (20:43)
[2024-06-30] VITALS: PULSE 75
[2024-06-30 04:00] VITALS: PULSE 76
[2024-06-30] MEDS: LEVOTHYROXINE SODIUM 50 MCG TABLET PO (05:03)
[2024-06-30 05:40] VITALS: BP 159/74; PULSE 81; RESP 16; TEMP 36.5; O2SAT 97
[2024-06-30 06:39] LABS: Basophils Absolute Auto 0.1 K/mm3 (0.0-0.1); Basophils Percent Auto 1.9 % (0.2-1.2); Eosinophils Absolute Auto 0.2 K/mm3 (0-0.3); Eosinophils Percent Auto 3.5 % (0-4.4); Hematocrit 32.3 % (37.0-47.0); Hemoglobin 10.4 g/dL (12.0-15.0); Immature Granulocyte Absolute 0.05 K/mm3 (0.00-0.031); Lymphocytes Absolute Auto 1.15 K/mm3 (0.9-3.2); Lymphocytes Percent Auto 23.7 % (18.3-44.2); Mean Corpuscular HGB Conc 32.2 g/dl (32-36); Mean Corpuscular Hemoglobin 32.3 pg (26-34); Mean Corpuscular Volume 100.3 fl (80-100); Mean Platelet Volume 10.4 fl (7.4-10.4); Monocytes Absolute Auto 0.8 K/mm3 (0.1-0.6); Neutrophils Absolute Auto 2.6 K/mm3 (1.3-6.7); Neutrophils Percent Auto 53.9 % (45.5-73.1); Nucleated Red Blood Cells Perc 0.4 % (0.0-0.2); Platelet Count Result 184 k/mm3 (150-375); Red Blood Count 3.22 M/mm3 (4.2-5.4); Red Cell Distribution Width 16.4 % (11.5-14.5); White Blood Count 4.9 K/mm3 (4.5-10.0)
[2024-06-30 08:00] VITALS: PULSE 73
[2024-06-30] MEDS: PANTOPRAZOLE 40 MG TABLET PO (09:14)
[2024-06-30] MEDS: MONTELUKAST SODIUM 10 MG TABLET PO (09:14)
[2024-06-30] MEDS: MULTIVITAMINS THERAPEUTIC TAB (*BKC) 1 TABLET PO (09:14)
[2024-06-30 09:15] VITALS: PULSE 77
[2024-06-30] MEDS: hydroCHLOROthiazide 25 MG TABLET BY MOUTH (09:15)
[2024-06-30] MEDS: LIDOCAINE 5% PATCH 1 PATCH TOPICAL (09:15)
[2024-06-30] MEDS: PUMP TOPICAL (09:15)
[2024-06-30] MEDS: METRONIDAZOLE 1% TOPICAL (09:15)
[2024-06-30] MEDS: METOPROLOL SUCCINATE EXT REL 100 MG TABCR PO (09:15)
[2024-06-30] MEDS: ENOXAPARIN 40 MG/0.4 ML SYRINGE SUB-Q (09:15)
--- NOTE | 2024-06-30 09:39 | PM.IMPN ---
Progress Note: A&P Assessment and Plan (1) Diarrhea: Code(s): R19.7 - Diarrhea, unspecified Status: Acute Assessment and Plan: Patient continues to have several episodes of diarrhea and a lack of appetite. Denies abdominal pain. Benign exam. - C dif negative - Stool culture ordered (2) Myeloma: Code(s): C90.00 - Multiple myeloma not having achieved remission Status: Acute Assessment and Plan: White cell of 4.4 today. Afebrile, no sign of infection. H/H 10.2/31.3. PLT 191. Neutropenic precautions Antibiotics: vancomycin, metronidazole, cefepime prophylactically, Nasal MRSA negative and vanc DC. Transitioned to Augmentin, course to be completed on 06/28. Watch for any abnormal vitals Heme/onc consulted Serum protein immunoelectrophoresis Discontinue lenalidomide and dexamethasone for now. Dex not discontinued due to the risk of adrenal crisis. Patient was advised after discharge that she needs to go to PCP and Heme-Onc () to get the bottles and verify with both them what medications she is taking. (3) Ileus: Code(s): K56.7 - Ileus, unspecified Status: Acute Assessment and Plan: Chest/abdomen/pelvis CT 06/21: Mild dilation of a loop of jejunum in the mid abdomen, presumably secondary to focal ileus. Early obstruction not excluded. - antibiotics: flagyl transitioned to augmentin, course to be completed on 06/28 - Diet: advanced back to regular diet - Monitor vital signs, I&Os, track stool output, watch for bloody stools, neuro status and patient is a fall risk - Monitor serum electrolytes and CBC - Surgery consulted, appreciate recommendations exam is largely benign, continue to encourage p.o., PT/OT, out of bed, continue serial exams signed off on 06/24 KUB 06/23: Nonspecific bowel gas pattern. Resolved. (4) Essential (primary) hypertension: Code(s): I10 - Essential (primary) hypertension Status: Acute Assessment and Plan: Chronic, continue home medications - HCTZ 25 mg daily - Metoprolol 100 mg daily - Ramipril 10 mg daily - Hydralazine 10 mg IV q6H prn for BP > 160 - Monitor (5) Hypothyroidism: Qualifiers: Hypothyroidism type: acquired Qualified Code(s): E03.9 - Hypothyroidism, unspecified Code(s): E03.9 - Hypothyroidism, unspecified Status: Acute Assessment and Plan: Chronic, continue home synthroid 50 mcg daily Subjective Date/time seen: 06/30/24 09:39 Interval history: 83-year-old female with history of multiple myeloma on chemotherapy present to the hospital for nausea/vomiting and diarrhea. Review of Systems Review of Systems: All systems reviewed & are unremarkable except as noted in HPI and below Exam Narrative: AF HR General: female in no acute respiratory distress who is nontoxic appearing, lying semi recumbent in bed. HEENT: Normocephalic. Atraumatic. Extraocular movement intact. Sclera clear and anicteric. No facial asymmetry. Chest: Lungs are clear to auscultation bilaterlly. No wheezes or crackles. CV: Heart was regular rate and rhythm. S1-S2. No murmurs, gallops, or rubs. Abd: Abdomen was soft. Nontender. Nondistended. Positive bowel sounds. Ext: No clubbing, cyanosis, or edema. 2+ DP pulses bilaterally. Neuro: Patient is alert and oriented x4. Cranial nerves 2-12 are intact. Speech is clear. Objective Data Vital Signs Vital Signs: Vital Signs - 24 hr 06/29/24 10:28 06/29/24 12:00 06/29/24 14:00 Temperature 98.2 F Pulse Rate 76 76 83 Respiratory Rate 18 Blood Pressure 110/56 L Pulse Oximetry 100 Oxygen Delivery 06/29/24 16:00 06/29/24 20:00 06/29/24 20:00 Temperature Pulse Rate 83 81 Respiratory Rate Blood Pressure Pulse Oximetry Oxygen Delivery Room Air 06/29/24 21:35 06/30/24 00:00 06/30/24 04:00 Temperature 97.3 F L Pulse Rate 83 75 76 Respiratory Rate 16 Blood Pressure 144/57 H Pulse Oximetry 98 Oxygen Delivery 06/30/24 05:40 06/30/24 09:15 Temperature 97.7 F Pulse Rate 81 77 Respiratory Rate 16 Blood Pressure 159/74 H Pulse Oximetry 97 Oxygen Delivery Intake/Output Intake/Output: Intake & Output 06/27/24 06/28/24 06/29/24 06/30/24 23:59 23:59 23:59 23:59 Intake Total 1470 1447 1867 300 Balance 1470 1447 1867 300 Meds/Results Medications: Active Medications Generic Name Dose Route Start Last Admin Trade Name Freq PRN Reason Stop Dose Admin Acetaminophen 650 mg 06/22/24 13:55 06/28/24 20:26 Acetaminophen 325 Mg Tablet PO 650 mg Q4H PRN Administration Mild Pain (1-3) or Fever Dexamethasone 20 mg 06/26/24 09:00 06/26/24 08:34 Dexamethasone 4 Mg Tablet PO Not Given Mo@0900 EZRA Dextrose 12.5 gm 06/22/24 18:54 Dextrose 50% 25 Gm/50 Ml Syringe IV PUSH PRN PRN Hypoglycemia Protocol Diphenhydramine HCl 25 mg 06/23/24 18:10 06/28/24 21:58 Diphenhydramine Hcl Inj 50 Mg/Ml Vial IV PUSH 25 mg Q4H PRN Administration Itching Enoxaparin Sodium 40 mg 06/23/24 09:00 06/30/24 09:15 Enoxaparin 40 Mg/0.4 Ml Syringe SUB-Q 40 mg DAILY EZRA Administration Glucagon 1 mg 06/22/24 18:54 Glucagon For Inj 1 Mg Vial IM PRN PRN Hypoglycemia Protocol Glucose 15 gm 06/22/24 18:54 Glucose Oral Gel 15 Gm Of Glucse In 37.5 Gm Tube PO PRN PRN Hypoglycemia Protocol Hydralazine HCl 10 mg 06/23/24 11:54 06/23/24 13:10 Hydralazine Hcl 20 Mg/Ml Vial IV PUSH 10 mg Q8H PRN Administration Blood Pressure - High Hydrochlorothiazide 25 mg 06/23/24 09:00 06/30/24 09:15 Hydrochlorothiazide 25 Mg Tablet BY MOUTH 25 mg DAILY EZRA Administration Dextrose 1,000 mls @ 100 mls/hr 06/22/24 18:54 Dextrose 5% 1,000 Ml IVPB PRN PRN Hypoglycemia Protocol Ibuprofen 600 mg 06/23/24 00:21 06/27/24 21:01 Ibuprofen 600 Mg Tablet PO 600 mg Q6H PRN Administration Cramping Insulin Aspart 2 - 5 units 06/23/24 08:00 06/30/24 08:49 Insulin Aspart (*Bkc) 100 Units/Ml SUB-Q Not Given TIDWM [facility] Protocol Levothyroxine Sodium 50 mcg 06/23/24 06:30 06/30/24 05:03 Levothyroxine Sodium 50 Mcg Tablet PO 50 mcg DAILY@0630 EZRA Administration Lidocaine 1 patch 06/23/24 09:00 06/30/24 09:15 Lidocaine 5% Patch TOPICAL 1 patch DAILY EZRA Administration Lidocaine/Prilocaine 1 each 06/22/24 18:23 Lidocaine/Prilocaine Cream 2.5-2.5% Tube TOPICAL PRN PRN Port Access Melatonin 5 mg 06/22/24 23:40 06/29/24 20:43 Melatonin 5 Mg Tablet PO 5 mg HS EZRA Administration Metoprolol Succinate 100 mg 06/23/24 09:00 06/30/24 09:15 Metoprolol Succinate Ext Rel 100 Mg Tabcr PO 100 mg DAILY EZRA Administration Montelukast Sodium 10 mg 06/23/24 09:00 06/30/24 09:14 Montelukast Sodium 10 Mg Tablet PO 10 mg DAILY EZRA Administration Morphine Sulfate 1 mg 06/23/24 18:10 06/25/24 20:46 Morphine Sulfate (*Crx) 2 Mg/Ml Inj IV PUSH 1 mg Q4H PRN Administration Pain Rated 7-10 Multi-Ingred Cream/Lotion/Oil/Oint 1 applic 06/22/24 21:00 Mineral Oil/White Petrolatum Ointment EACH EYE Q12H PRN Dry Eyes Multivitamins Therapeutic 1 tablet 06/23/24 09:00 06/30/24 09:14 Multivitamins Therapeutic Tab (*Bkc) PO 1 tablet DAILY EZRA Administration Home Med ( 1 applic 06/24/24 21:00 06/30/24 09:15 Metronidazole 1 % TOPICAL 07/24/24 20:59 1 applic Gel With Pump) Q12HR EZRA Administration Home Med ( 25 mg 06/24/24 17:00 06/29/24 16:47 Milnacipran [[place] PO 07/24/24 16:59 25 mg ] 25 Mg Tablet) DAILY@1700 EZRA Administration Ondansetron HCl 4 mg 06/22/24 10:19 06/28/24 20:27 Ondansetron Inj 4 Mg/2 Ml Vial IV PUSH 4 mg Q6H PRN Administration Nausea And Vomiting Ondansetron HCl 4 mg 06/22/24 17:21 06/28/24 13:06 Ondansetron Inj 4 Mg/2 Ml Vial IV PUSH 4 mg Q4H PRN Administration Nausea And Vomiting Ondansetron HCl 8 mg 06/22/24 19:11 Ondansetron Hcl Odt 4 Mg Tablet PO Q8H PRN Nausea And Vomiting Pantoprazole Sodium 40 mg 06/24/24 10:35 06/30/24 09:14 Pantoprazole 40 Mg Tablet PO 40 mg QAM EZRA Administration Ramipril 10 mg 06/24/24 17:00 06/29/24 16:46 Ramipril 5 Mg Capsule PO 10 mg 1700 EZRA Administration Radiology Results: ITS Impressions Head CT 06/21/24 20:54 IMPRESSION: No acute intracranial process. Chest/Abdomen/Pelvis CT 06/21/24 20:56 IMPRESSION: Mild esophagitis/gastritis. Mild dilation of a loop of jejunum in the mid abdomen, presumably secondary to focal ileus. Early obstruction not excluded. Multiple pancreatic cysts measuring up to 1.2 cm, demonstrating interval growth since 08/10/2020 examination. Consider follow-up with contrast enhanced MRI or pancreas protocol CT in one year, depending on the patient's overall health and preferences and if a surgical candidate. Severe disc space narrowing at L3-4 with erosive changes, may be secondary to osteomyelitis/discitis, neuropathic changes, or inflammatory arthropathy. Consider MR lumbar spine without and with contrast. Lumbar Spine MRI 06/22/24 13:57 IMPRESSION: 1. Severe lumbar spondylosis, advanced with Modic type III degenerative endplate changes at L3-L4. No findings to suggest discitis or osteomyelitis. 2. Diffuse heterogeneous marrow signal which could represent combination of red and yellow marrow or be related to reported known multiple myeloma. Chest X-Ray 06/22/24 21:31 IMPRESSION: Left basilar atelectasis versus pneumonia. Abdomen X-Ray 06/23/24 05:50 Impression: Nonspecific bowel gas pattern. Labs Labs: Laboratory Results - last 24 hr 06/29/24 06/29/24 06/30/24 09:03 12:41 06:17 WBC 4.4 L 4.9 RBC 3.41 L 3.22 L Hgb 11.0 L 10.4 L Hct 35.6 L 32.3 L MCV 104.4 H D 100.3 H MCH 32.3 32.3 MCHC 30.9 L 32.2 RDW 16.7 H 16.4 H Plt Count 169 184 MPV 10.3 10.4 Immature Gran % (Auto) 0.5 1.0 H Neut % (Auto) 55.4 53.9 Lymph % (Auto) 23.4 23.7 [place] % (Auto) 15.7 H 16.0 H Eos % (Auto) 3.0 3.5 Baso % (Auto) 2.0 H 1.9 H Lymph # (Auto) 1.03 1.15 [place] # (Auto) 0.7 H 0.8 H Eos # (Auto) 0.1 0.2 Baso # (Auto) 0.1 0.1 Abs Immat Gran (auto) 0.02 0.05 H Absolute Neuts (auto) 2.4 2.6 Absolute Nucleated RBC 0.020 H 0.020 H Nucleated RBC % 0.5 H 0.4 H Sodium 133 L Potassium 3.1 L Chloride 103 Carbon Dioxide 20 L Anion Gap 10 BUN 16 Creatinine 0.82 Estim Creat Clear Calc 54 Estimated GFR > 60 Glucose 135 H POC Capillary Glucose 110 H Calcium 8.0 L Magnesium 2.1 Total Bilirubin 0.7 AST 21 ALT 19 Alkaline Phosphatase 48 Total Protein 6.0 L Albumin 3.8 Quality VTE Prophylaxis VTE prophylaxis: pharmacologic ordered
[2024-06-30 10:03] LABS: Alanine Aminotransferase 19 U/L (6-35); Albumin Level 3.6 g/dL (3.5-5.1); Alkaline Phosphatase 48 U/L (38-126); Anion Gap 7 mmol/L (4-12); Aspartate Amino Transferase 23 U/L (14-36); Bilirubin,Total 0.5 mg/dL (0.2-1.3); Blood Urea Nitrogen 19 mg/dL (7-17); Calcium 8.5 mg/dL (8.4-10.2); Carbon Dioxide 28 mmol/L (22-30); Chloride 99 mmol/L (98-107); Estimated CRCL calculation 54 ml/min; Estimated Glomerular Filt Rate > 60; Glucose 121 mg/dL (65-110); Potassium 3.5 mmol/L (3.4-5.0); Sodium 134 mmol/L (137-145)
[2024-06-30 14:00] VITALS: BP 133/75; PULSE 74; RESP 18; TEMP 35.9; O2SAT 92
[2024-06-30] MEDS: LOPERAMIDE HCL 2 MG CAPSULE PO (15:04)
--- NOTE | 2024-06-30 16:03 | P.DS_ITS ---
DS: Admitting Diagnosis Discharge Date 06/30/2024 Admitting Diagnosis diarrhea myeloma ileus hypertension hypothyroidism DS: Discharge Diagnosis Discharge Diagnosis (1) Diarrhea: Code(s): R19.7 - Diarrhea, unspecified Status: Acute (2) Myeloma: Code(s): C90.00 - Multiple myeloma not having achieved remission Status: Acute (3) Ileus: Code(s): K56.7 - Ileus, unspecified Status: Acute (4) Essential (primary) hypertension: Code(s): I10 - Essential (primary) hypertension Status: Acute (5) Hypothyroidism: Qualifiers: Hypothyroidism type: acquired Qualified Code(s): E03.9 - Hypothyroidism, unspecified Code(s): E03.9 - Hypothyroidism, unspecified Status: Acute DS: Summary Hospital Course Reason for hospitalization: diarrhea myeloma ileus hypertension hypothyroidism Hospital Course: 83-year-old female with history of multiple myeloma on chemotherapy present to the hospital for nausea/vomiting and diarrhea. Patient remained afebrile throughout admission and did not meet sepsis criteria. Urinalysis was non concerning for infection. Chest XR was concerning for left basilar atelectasis vs pneumonia. A chest/abdomen/pelvis ct showed mild dilation of a loop of jejunum in the mid abdomen, presumably secondary to focal ileus. Early obstruction not excluded. Surgery consulted and no surgical interention was required. Given her neutropenia and immunosuppression in the setting of multiple myeloma she was started n IV antibiotics which she completed during her admission. The ileus resolved and repeat KUB showed nonspecific bowel gas pattern. Heme/onc was consulted and patients lenalidomide was discontinued. The dexamethasone was not discontinued at that time given the risk of adrenal crisis. Patient was advised after discharge that she needs to go to PCP and Heme-Onc () to get the bottles and verify with both them what medications she is taking. Patient has her diarrhea symptoms recur. C dif negative. Stool culture pending. Abdominal exam remained benign. The diarrhea symptoms improved during admission and patient was having soft formed stools at time of discharge. At time of discharge patient has no complaints denying chest pain, shortness of breath, palpitations, nausea/vomiting and abdominal pain. Patient discharged to SNF in a stable condition. She is to follow up with her PCP in 1 week and heme/onc as scheduled. Status at Discharge Functional status at discharge: uses cane/walker Time Spent with Patient Time attestation: Total time spent providing and/or coordinating discharge services: Time spent: Greater than 30 minutes Exam Narrative: AF HR 74 RR 18 Spo2 92 BP 133/75 General: female in no acute respiratory distress who is nontoxic appearing, lying semi recumbent in bed. HEENT: Normocephalic. Atraumatic. Extraocular movement intact. Sclera clear and anicteric. No facial asymmetry. Chest: Lungs are clear to auscultation bilaterlly. No wheezes or crackles. CV: Heart was regular rate and rhythm. S1-S2. No murmurs, gallops, or rubs. Abd: Abdomen was soft. Nontender. Nondistended. Positive bowel sounds. Ext: No clubbing, cyanosis, or edema. 2+ DP pulses bilaterally. Neuro: Patient is alert and oriented x4. Cranial nerves 2-12 are intact. Speech is clear. DS: Data Data Completed and Pending Completed studies during hospitalization: chest xr head ct chest/abdomen/pelvis ct lumbar spine mri chest xr kub Labs on day of discharge: Labs from last 24 hours 06/30/24 06:17 WBC 4.9 RBC 3.22 L Hgb 10.4 L Hct 32.3 L MCV 100.3 H MCH 32.3 MCHC 32.2 RDW 16.4 H Plt Count 184 MPV 10.4 Immature Gran % (Auto) 1.0 H Neut % (Auto) 53.9 Lymph % (Auto) 23.7 Garrett % (Auto) 16.0 H Eos % (Auto) 3.5 Baso % (Auto) 1.9 H Lymph # (Auto) 1.15 Garrett # (Auto) 0.8 H Eos # (Auto) 0.2 Baso # (Auto) 0.1 Abs Immat Gran (auto) 0.05 H Absolute Neuts (auto) 2.6 Absolute Nucleated RBC 0.020 H Nucleated RBC % 0.4 H Sodium 134 L Potassium 3.5 Chloride 99 Carbon Dioxide 28 Anion Gap 7 BUN 19 H Creatinine 0.81 Estim Creat Clear Calc 54 Estimated GFR > 60 Glucose 121 H Calcium 8.5 Total Bilirubin 0.5 AST 23 ALT 19 Alkaline Phosphatase 48 Total Protein 6.0 L Albumin 3.6 Discharge Plan Discharge Attending physician on discharge: Jerald Claire Consulting providers: Dian Cutler; Martha Yepez; Astrid Enriquez Discharging Clinician: Argenis Palma Anticipated Discharge Date/Time: 06/30/24 15:50 Patient Disposition: NH [facility]As[facility] Living Activity: as tolerated Diet: as tolerated, heart healthy and diabetic Discharge Instructions: Discharge disposition: Patient was admitted to the hospital for nausea/vomiting and diarrhea C diff was negative, stool culture pending Possible that patient has a viral infection causing acute diarrhea Continue to monitor stool output Eat a well balanced diet and encourage adequate oral intake to remain strong and avoid dehydration Patient was diagnosed with an ileus and evaluated by surgery Ileus resolved during admission Patient evaluated by oncology for myeloma and completed her course of antibiotics during admission Stop taking the lenalidomide Follow up with oncology or your primary care provider in regards to discontinuing the dexamethasone Monitor blood pressures Take caution while standing, rising, or moving Change positions slowly taking a break between each position change If you standing feel dizzy sat back down and take a break Encouraged to continue with yearly vaccinations Return to the emergency department if he developed sudden shortness of breath, chest pain, nausea, vomiting, upset stomach or intractable diarrhea Return to the emergency department if you develop fever greater than 101.5 Follow-up with the primary care physician within 1-2 weeks Thank you for [facility] for your healthcare needs Patient Instructions: Acute Nausea and Vomiting (DC) Patient Language: Mongolian Stand Alone Forms: General Discharge Information Follow-up/Referrals: Brant Ratliff MD [Physician] - Call for Appointment UNKNOWN,DOCTOR [Primary Care Provider] - 1 Week Discharge Medications: Continued sulfamethoxazole-trimethoprim 800-160 mg tablet 800 tablet PO QMWF acyclovir 400 mg Tablet 400 mg PO DAILY Patient Comments: . omeprazole 20 mg capsule,delayed release(DR/EC) 20 mg PO DAILY multivitamin Tablet 1 tablet PO DAILY glucosamine BTs-tlu-sdthxockbn 400-200-333 mg tablet See Rx Instructions PO DAILY Rx Instructions: 1500/1200 2 TABS PO daily; give with meal/snack aspirin 81 mg tablet,delayed release (DR/EC) 81 mg PO DAILY metformin 500 mg tablet extended release 24 hr 500 mg PO DAILY Qty: 90 1RF Rx Instructions: Take with food atorvastatin 20 mg tablet 20 mg PO DAILY metoprolol succinate 100 mg tablet extended release 24 hr 100 mg PO DAILY acyclovir 400 mg tablet 400 mg PO BID lidocaine-prilocaine 2.5-2.5 % cream 1 applic topical PRN PRN (Reason: Port Access) Patient Comments: To numb for port access levothyroxine 50 mcg tablet 50 mcg PO .q 629 dexamethasone 4 mg tablet 20 mg PO WEEKLY Patient Comments: Weekly on Wednesday lidocaine 5 % adhesive patch,medicated 1 patch topical DAILY montelukast 10 mg tablet 10 mg PO DAILY ramipril 10 mg capsule 10 mg PO DAILY ezetimibe 10 mg tablet 10 mg PO DAILY eszopiclone 3 mg tablet 3 mg PO QHS PRN (Reason: insomnia) metronidazole 1 % gel with pump 1 applic TOPICAL BID Patient Comments: 1 Pump topically BID ondansetron 8 mg tablet,disintegrating 8 mg translingual Q8H PRN (Reason: nausea and vomiting) acetaminophen [Tylenol Arthritis Pain] 650 mg Tablet Extended Release 1,300 mg PO Q12H PRN (Reason: Pain) Patient Comments: . biotin 10,000 mcg Capsule 10,000 mcg PO DAILY artificial tears with lanolin Ointment 1 applic EACH EYE 4-12XD PRN (Reason: Dry Eyes) turmeric root extract 500 mg Capsule 500 mg PO BID [place] 3-6-9 1,200 mg Capsule 1 cap PO DAILY triamcinolone acetonide 0.1 % cream 1 applic topical PRN PRN (Reason: Skin Irritation) tramadol 50 mg tablet 50 mg PO Q12H PRN (Reason: pain) fluticasone propionate 50 mcg/actuation spray,suspension 2 spray NASAL BID Qty: 36.4 12RF eszopiclone [Lunesta] 3 mg tablet 3 mg PO QHS PRN (Reason: insomnia) Qty: 30 5RF hydrochlorothiazide 25 mg tablet See Rx Instructions .ROUTE .COMPLEX Qty: 90 1RF Dose Instruction: TAKE 1 TABLET BY MOUTH DAILY Rx Instructions: TAKE 1 TABLET BY MOUTH DAILY gabapentin 600 mg tablet 600 mg PO QID Qty: 360 1RF Savella 25 mg tablet 25 mg PO DAILY 30 Days Qty: 30 5RF Rx Instructions: Take 1 tab p.o. q.day Discontinued ondansetron 8 mg Tablet,Disintegrating 8 mg PO Q8H PRN (Reason: Nausea And Vomiting) dexamethasone 4 mg Tablet 4 mg PO DIRECTED gabapentin 600 mg tablet 600 mg PO QID sulfamethoxazole-trimethoprim 800-160 mg tablet tramadol 50 mg tablet hydrochlorothiazide 25 mg tablet 25 mg PO DAILY metformin 500 mg tablet extended release 24 hr 500 mg PO DAILY lenalidomide [Revlimid] 15 mg capsule 15 mg PO DAILY Savella 25 mg tablet 25 mg PO DAILY lenalidomide [Revlimid] 25 mg capsule PO montelukast 10 mg tablet See Rx Instructions .ROUTE .COMPLEX Qty: 90 1RF Dose Instruction: TAKE 1 TABLET BY MOUTH DAILY Rx Instructions: TAKE 1 TABLET BY MOUTH DAILY ramipril 10 mg capsule 10 mg PO DAILY Qty: 90 1RF metronidazole 1 % gel with pump See Rx Instructions .ROUTE .COMPLEX Qty: 55 1RF Dose Instruction: APPLY ONE PUMP TOPICALLY TWICE DAILY Rx Instructions: APPLY ONE PUMP TOPICALLY TWICE DAILY levothyroxine 50 mcg tablet See Rx Instructions .ROUTE .COMPLEX Qty: 90 0RF Dose Instruction: TAKE 1 TABLET BY MOUTH DAILY Rx Instructions: TAKE 1 TABLET BY MOUTH DAILY ezetimibe 10 mg tablet See Rx Instructions .ROUTE .COMPLEX Qty: 90 1RF Dose Instruction: TAKE 1 TABLET BY MOUTH DAILY Rx Instructions: TAKE 1 TABLET BY MOUTH DAILY atorvastatin [Lipitor] 20 mg tablet 20 mg PO QHS Qty: 90 3RF lidocaine 5 % adhesive patch,medicated 1 patch topical DAILY Qty: 30 1RF Rx Instructions: leave on most painful area for up to 12 hrs metoprolol succinate 100 mg tablet extended release 24 hr See Rx Instructions .ROUTE .COMPLEX Qty: 90 1RF Dose Instruction: TAKE 1 TABLET BY MOUTH DAILY Rx Instructions: TAKE 1 TABLET BY MOUTH DAILY Date of admission: 06/21/24 23:08 Primary Care Provider: UNKNOWN,DOCTOR Admitting Provider: Amado Schroeder Attending physician on admission: Argenis Palma Condition: Stable Hospitalist MIPS Heart Failure (Exclusion) Patient has history of Heart Transplant or Left Ventricular Assistive Device?: No IF YES, STOP HERE Heart Failure (Qualifier) Patient has current or prior documentation of LVEF less than or equal to 40%, or mod/servere depressed LVSF?: No IF NO, STOP HERE
== END 2024-06-30 17:20 | DRG 389 ==
LOC: ANHED 06-22 00:15 → ANH3MEDSUR 06-22 00:29
PROVIDERS: General Practice; Nurse Practitioner; Admitting Provider Internal Medicine; Emergency Provider Emergency Medicine; Visit Provider Student in an Organized Health Care Education/Training Program
DX: K56.7 Ileus, unspecified (principal); C90.00 Multiple myeloma not having achieved remission; R19.7 Diarrhea, unspecified; I10 Essential (primary) hypertension; E03.9 Hypothyroidism, unspecified; M35.3 Polymyalgia rheumatica; G47.33 Obstructive sleep apnea (adult) (pediatric); M79.7 Fibromyalgia; E78.5 Hyperlipidemia, unspecified; Z79.60 Long term (current) use of unspecified immunomodulators and immunosuppressants
CPT/HCPCS: 36415; 36600; 70450; 71045; 71046; 71260; 72158; 74018; 74177; 80053; 81001; 82550; 82805; 82948; 83605; 83690; 83735; 83880; 84100; 84132; 84439; 84443; 84480; 84484; 85018; 85025; 85055; 85610; 85730; 87040; 87045; 87427; 87449; 87493; 87637; 87641; 93005; 93306; 96365; 96367; 96375; 97110; 97116; 97161; 97166; 97530; 97535; 99285; A9270; A9577; J0360; J0612; J0692; J1200; J1650; J1836; J1885; J1940; J2270; J2405; J2470; J3370; J3475; J3480; J7030; J7040; J8540; Q9967

== ENCOUNTER 2024-08-11 04:53 | Day surgery (SDC) | payer OTHER, SELFPAY ==
[2024-08-10 15:45] VITALS: BMI 32.1
--- NOTE | ~2024-08-11 | BM_ITS ---
EXAMINATION: CCL bone marrow asp w bx diag ORDER COMPLETED DATE: 08/11/2024 09:49 INDICATION: Multiple myeloma TECHNIQUE: A time-out was performed to verify the patient's name, date of , and procedure to b e performed. The procedure including the risks, benefits, and alternatives was discussed with the pat ient. Risks discussed included bleeding and infection. The patient understood the risks and agreed to proceed. The skin overlying the right posterior iliac spine was prepped and draped in usual sterile fashion. Anesthetic was administered with 1% lidocaine subcutaneously. Systemic analgesia was provide d with 50 mcg fentanyl IV and 1 mg Versed IV. An 11 gauge needle was inserted into the ilium with flu oroscopic guidance. Bone marrow was aspirated. An 8 gauge needle was then inserted into the ilium wit h fluoroscopic guidance. A core bone marrow biopsy was obtained. There were no immediate complication s. Fluoroscopy exposure time was 0.1 minutes. 0 images were recorded. Total DAP was 261 mGycm^2 FINDINGS: Real-time fluoroscopy demonstrates a marker overlying the right posterior iliac spine. IMPRESSION: 1. Successful fluoro-guided bone marrow aspiration. 2. Successful fluoro-guided bone marrow core biopsy. Reviewed, dictated and finalized at location A. TOLOGIST
--- OUTSIDE RECORDS SUMMARY | 2024-08-11 04:57 | XMS_ITS | Referral Summary ---
Author Organization [facility] [place] [address] Address [address] [place] [address] Care Team Providers Care Rrts Name Role Phone Elvis Lopez MD Primary Care Provider [phone] Catherine Todd MD Unavailable [phone] Allergies Active Allergy Reactions Criticality Noted Date Comments Doxycycline Monohydrate Unknown 08/29/2018 Alprazolam Other (See comments) Low 08/29/2018 Sleeps all day Amitriptyline Other (See comments) Low 08/29/2018 Sleeps all day Valdecoxib Unknown 08/29/2018 Dextran 70-Hypromellose (Pf) Unknown 019 Brompheniramine-Phenylephrine Unknown 2018 Desloratadine Unknown 08/29/2018 Codeine Meperidine Unknown 08/29/2018 Diclofenac Unknown 08/29/2018 Duloxetine Unknown 08/29/2018 Phenylephrine-Guaifenesin Unknown 08/29/2018 Rqbqkiyfbpqvnpiv-Mz-Ipeeoywbcr Other (Se e comments) Low 08/29/2018 Hard [...] 50 mcg/actuation nasal spray Active glucosam velasquez uuz-utjwlpmfb-K-Mn 034-467-94-3 mg capsule Active hydroCHLOROthiazid e (HYDRODIURIL) 25 [...] nightly as needed 06/23/19 22 Active omega 0-jgz-eig-fish oil (Fish OiL) 100-160-1,000 mg capsule Take [...] be different from the original. Labs at [facility] prior to 3 mo f / u. 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/HCC) 06/07/2020 Multiple myeloma not having achieved remission ( 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 Gender Identity Female 06/07/2020 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 Sexual Orientation Straight 06/07/2020 11 :17 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 Last Filed Vital Signs Vital Sign Reading Time Taken Comments Blood Pressure 118/62 04/13/2024 8:36 AM CDT Pulse 65 04/13/2024 8:36 AM CDT Temperature 36.8 C (98.3 F) 12/03/2023 1:59 PM CDT Respiratory Rate 18 12/03/2023 1:59 PM CDT Oxygen Saturation 98% 04/13/2024 8:36 AM CDT Inhaled Oxygen Concentration - - Weight 97.1 kg (214 lb) 04/13/2024 8:36 AM CDT Height 172.7 cm (5' 8 ) 04/13/2024 8:36 AM CDT Body Mass Index 32.54 04/13/2024 8:36 AM CDT Plan of Treatment Not on file Insurance [facility] [id number] [facility] [id number] [facility] [id number] Care Teams Rrts Relationship Specialty Start Date End Date Elvis Lopez MD [address] [place] [address] [place] [address] PCP - General Family Medicine 02/04/23 Catherine Todd MD [address] [facility] [employer], [address] [place] [address] Medical Oncologist/Classroom Technology Coach Hematology 08/27/23
--- OUTSIDE RECORDS SUMMARY | 2024-08-11 04:57 | XMS_ITS | Clinical Summary ---
Author Organization [facility] [place] [address] Address [address] [place] [address] Care Team Providers Care Cap Lining Machine Operator Name Role Phone Elvis Lopez MD Primary Care Provider [phone] Catherine Todd MD Unavailable [phone] Allergies Active Allergy Reactions Criticality Noted Date Comments Doxycycline Monohydrate Unknown 08/29/2018 Alprazolam Other (See comments) Low 08/29/2018 Sleeps all day Amitriptyline Other (See comments) Low 08/29/2018 Sleeps all day Valdecoxib Unknown 08/29/2018 Dextran 70-Hypromellose (Pf) Unknown 019 Brompheniramine-Phenylephrine Unknown 2018 Desloratadine Unknown 08/29/2018 Codeine Meperidine Unknown 08/29/2018 Diclofenac Unknown 08/29/2018 Duloxetine Unknown 08/29/2018 Phenylephrine-Guaifenesin Unknown 08/29/2018 Yracpmqmpkecugef-Tk-Vcbabolkmg Other (Se e comments) Low 08/29/2018 Hard [...] 50 mcg/actuation nasal spray Active glucosam velasquez qpc-anlzhonkw-F-Mn 658-438-14-3 mg capsule Active hydroCHLOROthiazid e (HYDRODIURIL) 25 [...] nightly as needed 06/23/19 22 Active omega 5-ckj-jlf-fish oil (Fish OiL) 100-160-1,000 mg capsule Take [...] be different from the original. Labs at [facility] prior to 3 mo f / u. 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 [...] on file Legal Sex Female 3:01 AM ASSOCIATE LOAN OFFICER Gender Identity Female 06/07/2020 11:17 AM ASSOCIATE LOAN OFFICER Sexual Orientation Straight 06/07/2020 11 :17 AM ASSOCIATE LOAN OFFICER Obstetrics History Last Filed Vital Signs Vital [...] Screening 1940 Osteoporosis Screening-Bone Density Scan 1940 DTaP/Tdap/Td Vaccine (1 - Tdap) 12/30/1951 Hepatitis B Screening 1958 Pneumococcal vaccine 65+ (1 of 2 - PCV) 12/30/1959 1 Zoster Vaccine (1 of 2) 12/30/1959 Well Visit 65+ 2005 Influenza Vaccine (#1) 2024 03/31/2018, 2017 Fall Risk Assessment 10/31/2024 11/01/2023 Insurance [facility] [id number] [facility] [id number] [facility] [id number] Care Teams Cap Lining Machine Operator Relationship Specialty Start Date End Date Elvis Lopez MD [facility] [place], [place] [id number] PCP - General Family Medicine 02/04/23 Catherine Todd MD [address] [employer], [address] [place] [address] Medical Oncologist/Clean In Places Operator Hematology 08/27/23
--- OUTSIDE RECORDS SUMMARY | 2024-08-11 04:57 | XMS_ITS | Clinical Summary ---
Author Organization [facility] Address [address] [place] [id number] Care Team Providers Care Sports Betting Manager Name Role Phone Pedro Ortiz DO Primary Care Provider [phone] Allergies Active Allergy Reactions Criticality Noted Date Comments Acetaminophen-Pamabrom Unknown 08/29/2018 Alprazolam Other (See Comments) Low 08/29/2018 Sleeps all day Amitriptyline Rash Low 08/29/2018 Sleeps all day Brompheniramine-Phenylephrine Unknown 2018 Carbinoxamine-Pseudoephedrine Unknown 2018 Carboxymethylcellulose Sodium Unknown 2018 Codeine Anxiety Low 11/26/2020 Desloratadine Unknown 08/29/2018 Dextran 70-Hypromellose (Pf) Unknown 019 Diclofenac Unknown 08/29/2018 Doxycycline Monohydrate Unknown 08/29/2018 Qnwbafcdz-Dfs-Ln-Acetaminophen Unknown 08/29 Duloxetine Unknown 08/29/2018 Levofloxacin Unknown 01/11/2024 Meperidine Unknown 08/29/2018 Nickel Unknown 01/11/2024 Phenylephrine-Guaifenesin Unknown 08/29/2018 Prednisone Unknown 01/11/2024 Propoxyphene N-Acetaminophen Rash Low 021 Ramelteon Unknown 08/29/2018 Sulfamethoxazole-Trimethoprim Unknown 2018 Tramadol-Acetaminophen Swelling Low 11/26/2020 Trazodone Unknown 01/11/2024 Trinalin Unknown 08/29/2018 Ultracef Unknown 08/29/2018 Medications hydroCHLOROthi azide 25 mg tablet TK 1 T PO QD 07/12/19 19 Active montelukast (SINGULAIR) 10 mg tablet TK 1 T PO D 08/18/19 19 Active levothyroxine 50 mcg tablet TK 1 T PO QD 05/27/20 18 Active ezetimibe (ZETIA) 10 mg tablet TK 1 T PO QD 02/28/20 19 Active omega 0-qhx-cbb-fish oil (Fish Oil) 100-160-1,000 mg Capsule Take by mouth. Acti ve MULTIVITAMIN ORAL Take by mouth. Activ e TURMERIC ORAL Take by mouth. A ctive omeprazole (PriLOSEC) 20 mg Capsule, Delayed Release(E.C.) Take 20 mg by mouth. Active metoprolol succinate (TOPROL XL) 100 mg Extended Release 24 hour tablet TK 1 T PO D 06/27/19 19 Active acetaminophen (TYLENOL ARTHRITIS) 650 mg Extended Release tablet Take 650 mg by mouth. Active atorvastatin (LIPITOR) 20 mg tablet Take 20 mg by mouth daily at bedtime. 01/23/20 23 Active eszopiclone (LUNESTA) 3 mg Tablet Take 3 mg by mouth nightly as needed. 06/23/19 22 Active lidocaine (LIDODERM) 5 % Adhesive Patch, Medicated APPLY 1 PATCH TOPICALLY TO THE SKIN DAILY. LEAVE ON MOST PAINFUL AREA FOR UP TO 12 HOURS 10/21/19 23 Active metroNIDAZOLE 1 % Gel with Pump Apply to affected area. Active milnacipran (Savella) 25 mg tablet Take 25 mg by mouth daily. 12/24/19 23 Active ramipriL (ALTACE) 10 mg capsule Take 10 mg by mouth daily. 12/12/19 23 Active fluticasone propion-salmet Apollo (ADVAIR DISKUS,WIXELA INHUB) 250-50 mcg/dose disk inhaler Take 1 Puff by inhalation 2 times daily. Active gabapentin (NEURONTIN) 600 mg tablet Take 600 mg by mouth 3 times daily. Active glucosamine HCl/chondroiti n velasquez (GLUCOSAMINE-C HONDROITIN ORAL) Take by mouth. Activ e VIT B COMP NO.3-FOLIC-C-B IOTIN ORAL Take by mouth. Acti ve dextromethorph an-guaiFENesin (MUCINEX DM) 30-600 mg Tablet Sustained Release 12HR Take 1 Tablet by mouth every 12 hours. Active acyclovir (ZOVIRAX) 400 mg tablet Take 1 Tablet (400 mg) by mouth 2 times daily. 60 Tablet 5 01/14/20 24 Active ondansetron (ZOFRAN ODT) 8 mg Tablet, Rapid Dissolve Dissolve 1 tablet on top of tongue then swallow with saliva every 8 hours as needed for nausea or vomiting 30 Tablet 1 02/09/20 24 Active lidocaine-pril ocaine (EMLA) 2.5-2.5 % Cream Apply a quarter size amount to port site 30 minutes before access. 30 Gram 1 02/09/20 24 Active traMADoL (ULTRAM) 50 mg tabletIndicati ons:Multiple myeloma not having achieved remission (CMS/HCC) Take 1 Tablet (50 mg) by mouth every 6 hours as needed for Pain. 60 Tablet 03/07/20 24 Active dexAMETHasone (DECADRON) 4 mg tablet Take 5 tablets by mouth weekly on every Wednesday 40 Tablet 5 03/14/20 24 Active penicillin V potassium (VEETID) 500 mg tablet Take 500 mg by mouth 4 times daily. 06/08/20 24 Active sulfamethoxazo le-trimethopri m (BACTRIM DS) 800-160 mg tablet TAKE 1 TABLET BY MOUTH TWICE DAILY ON MONDAYS, WEDNESDAYS, AND FRIDAYS 24 Tablet 5 07/25/19 25 Active lenalidomide (Revlimid) 15 mg capsuleIndicat ions:Multiple myeloma not having achieved remission (CMS/HCC) TAKE ONE CAPSULE BY MOUTH DAILY FOR 14 DAYS THEN 7 DAYS OFF 14 Capsule 07/31/19 25 Active sulfamethoxazo le-trimethopri m (BACTRIM DS) 800-160 mg tablet Take 1 tablet by mouth twice daily on Wednesday and Wednesday 24 Tablet 5 01/14/20 24 025 Discontinued lenalidomide (Revlimid) 15 mg capsuleIndicat ions:Multiple myeloma not having achieved remission (CMS/HCC) TAKE 1 CAPSULE BY MOUTH DAILY FOR 14 DAYS THEN 7 DAYS OFF 14 Capsule 06/22/19 25 025 Discontinued Active Problems Problem Noted Date Diagnosed Date Fibromyalgia 11/26/2020 Spondylolisthesis at L4-L5 level 11/26/2020 Encounters Date Type Department Care Team Description 08/08/2024 External Device Data STL ABSTRACTION Provider, Abstract 08/04/2024 Abstract [facility] - [place] [address] [place] [id number] Brant Ratliff MD 07/31/2024 Orders Only [facility] - [place] [address] [place] [address] Brant Ratliff MD Multiple myeloma not having achieved remission (CMS/HCC); Benign hypertension 07/28/2024 Refill [facility] - [place] [address] [place] [address] Luda Linn MD Multiple myeloma not having achieved remission (CMS/HCC) 07/24/2024 Refill [facility] - [place] [address] [place] [address] Brant Ratliff MD 07/21/2024 Orders Only [facility] - [place] [address] [place] [address] Brant Ratliff MD 07/18/2024 External Device Data STL ABSTRACTION Provider, Abstract 07/17/2024 Orders Only [facility] - [place] [address] [place] [id number] Brant Ratliff MD Multiple myeloma not having achieved remission (CMS/HCC); Benign hypertension 07/14/2024 9:00 AM LEAN MANUFACTURING LEADER Office Visit [facility] - [place] [address] [place] [address] Brant Ratliff MD Multiple myeloma not having achieved remission (CMS/HCC) (Primary Dx) 07/14/2024 Orders Only [facility] - [place] [address] [place] [address] Brant Ratliff MD 07/12/2024 External Device Data STL ABSTRACTION Provider, Abstract 07/12/2024 External Device Data STL ABSTRACTION Provider, Abstract 07/03/2024 Orders Only [facility] - [place] [address] [place] [id number] Brant Ratliff MD Multiple myeloma not having achieved remission (CMS/HCC); Benign hypertension 06/23/2024 Orders Only [facility] - [place] [address] [place] [phone] Brant Ratliff MD 06/22/2024 Orders Only [facility] - [place] [address] [place] [address] Brant Ratliff MD 06/19/2024 Refill [facility] - [place] [address] [place] [id number] Luda Linn MD Multiple myeloma not having achieved remission (CMS/HCC) 06/19/2024 Orders Only [facility] - [place] [address] Brant Ratliff MD Multiple myeloma not having achieved remission (CMS/HCC); Benign hypertension 06/08/2024 Orders Only [facility] - [place] [address] [place] [phone] Brant Ratliff MD 06/06/2024 10:15 AM LEAN MANUFACTURING LEADER Office Visit [facility] [address] [place] [phone] Brant Ratliff MD Multiple myeloma not having achieved remission (CMS/HCC) (Primary Dx) 06/06/2024 Orders Only [facility] - [place] [address] [place] [id number] Brant Ratliff MD 06/05/2024 Orders Only [facility] - [place] [address] [place] [id number] Brant Ratliff MD Multiple myeloma not having achieved remission (CMS/HCC); Benign hypertension 06/01/2024 Refill [facility] - [place] [address] [place] [id number] Luda Linn MD Multiple myeloma not having achieved remission (CMS/HCC) 05/29/2024 Orders Only [facility] [address] [place] [phone] Brant Ratliff MD Multiple myeloma not having achieved remission (CMS/HCC) (Primary Dx) 05/25/2024 Abstract [facility] [address] [place] [address] Brant Ratliff MD 05/24/2024 Orders Only [facility] [address] [place] [phone] Brant Ratliff MD 05/23/2024 Orders Only [facility] [address] Brant Ratliff MD 05/22/2024 Orders Only [facility] [address] Brant Ratliff MD Multiple myeloma not having achieved remission (CMS/HCC); Benign hypertension 05/17/2024 Telephone [facility] [address] Brant Ratliff MD Dye Study 05/16/2024 8:30 AM LEAN MANUFACTURING LEADER Office Visit [facility] [address] Brant Ratliff MD Multiple myeloma not having achieved remission (CMS/HCC) (Primary Dx) 05/16/2024 Orders Only [facility] [address] Brant Ratliff MD Multiple myeloma not having achieved remission (CMS/HCC) (Primary Dx) 05/11/2024 Orders Only [facility] [place] [address] [place] [address] Brant Ratliff MD 05/11/2024 Refill [facility] - [place] [address] [place] [address] Luda Linn MD Multiple myeloma not having achieved remission (CMS/HCC) from Last 3 Months Family History Medical [...] drink = 0.6 oz pur e alcohol) Comments Unknown Sex and Gender Information Value Date Recorded Sex Assigned at Not on file Legal Sex Female 5:17 AM LEAN MANUFACTURING LEADER Gender Identity Not on file Sexual Orientation Not on file Last Filed Vital Signs Vital Sign Reading Time Taken Comments Blood Pressure 102/57 07/14/2024 8:57 AM LEAN MANUFACTURING LEADER Pulse 69 07/14/2024 8:57 AM LEAN MANUFACTURING LEADER Temperature 36.2 C (97.1 F) 07/14/2024 8:57 AM LEAN MANUFACTURING LEADER Respiratory Rate 15 07/14/2024 8:57 AM LEAN MANUFACTURING LEADER Oxygen Saturation 95% 07/14/2024 8:57 AM LEAN MANUFACTURING LEADER Inhaled Oxygen Concentration - - Weight 97 kg (213 lb 12.8 oz) 07/14/2024 8:57 AM LEAN MANUFACTURING LEADER Height 172.7 cm (5' 8 ) 01/11/2024 10:44 AM CDT Body Mass Index 32.51 01/11/2024 10:44 AM CDT Plan of Treatment Upcoming Encounters Date Type Department Care Team (Late st Contact Info) Description 08/21/2024 1:00 PM LEAN MANUFACTURING LEADER Office Visit [facility] - [place] [address] [facility] [address] [place] [address] Brant Ratliff MD [address] [facility] [address] [place] [address] Health Maintenance Due Date Last Done Comments DTAP/TDAP/TD VACCINES (1 - Tdap) 12/30/1959 PNEUMOCOCCAL VACCINE 65+ YEARS (1 of 2 - PCV) 12/29/18 60 03/31/2018 ZOSTER VACCINE (1 of 2) 12/30/1959 OSTEOPOROSIS SCREENING 2005 RSV VACCINE (60+ or ) (1 - 1-dose 75+ series) 12/30/2015 INFLUENZA VACCINE (#1) 2024 03/25/2018 Preventative Visit- Commercial 06/21/2024 Procedures Procedure Name Priority Date/Time Associated Diagnosis Comments BASIC METABOLIC PANEL Routine 07/21/2024 12:16 PM LEAN MANUFACTURING LEADER COMPREHENSIVE METABOLIC PANEL Routine 07/21/2024 12:05 PM LEAN MANUFACTURING LEADER CBC WITH AUTODIFFERENTIAL Routine 2024 12:03 PM LEAN MANUFACTURING LEADER CBC WITH DIFFERENTIAL Routine 07/14/2024 1:16 PM LEAN MANUFACTURING LEADER COMPREHENSIVE METABOLIC PANEL Routine 06/16/2024 1:11 PM LEAN MANUFACTURING LEADER BASIC METABOLIC PANEL Routine 06/06/2024 2:18 PM LEAN MANUFACTURING LEADER CBC WITH DIFFERENTIAL Routine 06/06/2024 2:17 PM LEAN MANUFACTURING LEADER PROTEIN ELECTROPHORESIS, CSF Routine 06/06/2024 12:08 PM LEAN MANUFACTURING LEADER KAPPA/LAMBDA LIGHT CHAINS Routine 2023 9:24 AM LEAN MANUFACTURING LEADER XR PORT CONTRAST INJECT W FLUORO Routine 05/26/2024 1:55 PM LEAN MANUFACTURING LEADER COMPREHENSIVE METABOLIC PANEL Routine 05/23/2024 12:54 PM LEAN MANUFACTURING LEADER CBC WITH DIFFERENTIAL Routine 05/23/2024 10:45 AM LEAN MANUFACTURING LEADER BASIC METABOLIC PANEL Routine 05/23/2024 9:48 AM LEAN MANUFACTURING LEADER COMPREHENSIVE METABOLIC PANEL Routine 05/16/2024 3:32 PM LEAN MANUFACTURING LEADER CBC WITH DIFFERENTIAL Routine 05/16/2024 12:49 PM LEAN MANUFACTURING LEADER BASIC METABOLIC PANEL Routine 05/16/2024 12:42 PM LEAN MANUFACTURING LEADER KAPPA/LAMBDA LIGHT CHAINS Routine 2023 9:38 AM LEAN MANUFACTURING LEADER from Last 3 Months Results * BASIC METABOLIC PANEL (07/21/2024 12:16 PM LEAN MANUFACTURING LEADER) Only the most recent of4 resultswithin the time period is included. Blood Result Erik Ratliff MD CHEMISTRY ORDERABLES Final Resu lt * COMPREHENSIVE METABOLIC PANEL (07/21/2024 12:05 PM LEAN MANUFACTURING LEADER) Only the most recent of4 resultswithin the time period is included. Blood Result Erik Ratliff MD CHEMISTRY ORDERABLES Final Resu lt * CBC WITH AUTODIFFERENTIAL (07/21/2024 12:03 PM LEAN MANUFACTURING LEADER) Blood Result Erik Ratliff MD HEMATOLOGY ORDERABLES Final Res ult * CBC WITH DIFFERENTIAL (07/14/2024 1:16 PM LEAN MANUFACTURING LEADER) Only the most recent of4 resultswithin the time period is included. Blood Result Erik Ratliff MD HEMATOLOGY ORDERABLES Final Res ult * PROTEIN ELECTROPHORESIS, CSF (06/06/2024 12:08 PM LEAN MANUFACTURING LEADER) Cerebrospinal fluid CEREBROSPINAL FLUID / Unknown Result Erik Ratliff MD BODY FLUIDS AND STOOLS Final Re sult * KAPPA/LAMBDA, FREE LIGHT CHAINS (06/06/2024 9:24 AM LEAN MANUFACTURING LEADER) Only the most recent of2 resultswithin the time period is included. Blood Result Erik Ratliff MD CHEMISTRY ORDERABLES Final Resu lt * XR PORT CONTRAST INJECT W FLUORO (05/26/2024 1:55 PM LEAN MANUFACTURING LEADER) Anatomical Region Laterality Modality Other us Brant Ratliff MD DIAGNOSTIC IMAGING ORDERABLES F inal Result from Last 3 Months Insurance GELI O OPEN ACCESS RX [facility] [employer] Care Teams Sports Betting Manager Relationship Specialty Start Date End Date Pedro Ortiz DO [address] [place] [phone] PCP - General Family Practice 07/14/24
--- OUTSIDE RECORDS SUMMARY | 2024-08-11 04:57 | XMS_ITS ---
Author Organization [facility] [address] Address [address] [place] [address] Care Team Providers Care Bias Cutting Machine Operator Vertical Name Role Phone Elvis Lopez MD Primary Care Provider [phone] Catherine Todd MD Unavailable [phone] Active Problems Patient Care Coordination No te Formatting of this note migh t be different from the original. Labs at [facility] prior to 3 mo f / u. 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 Past Treatment and Therapy Plans Oncology Chemotherapy Treatment Plan Name Start Date Discontinue Date Treatment Medications Discontinue Reason Plan Provider Cycles Daratumumab SUBCUTANEOUS / Lenalidomide / Bortezomib / Dexamethasone (D-RVd Induction/Consol idation) followed by Daratumumab / Lenalidomide (D-R Maintenance) - Myeloma 4 01/13/2024 bortezomib (VELCADE)delia preetiumab-[facility] (DARZALEZ FASPRO) (DARZELEX FASPRO)lenali domide (REVLIMID) Patient Preference Catherine Todd MD Treatment not started Lifetime Dose Tracking * Chemical Lifetime Dose Automatic Entry Manual Entr y Fluoro Time 0.355 minutes 0.355 minutes 0 minutes Air kerma at the reference point (Ka,r) 2.78 mGy 2 .78 mGy 0 mGy
--- OUTSIDE RECORDS SUMMARY | 2024-08-11 04:57 | XMS_ITS | Encounter Summary ---
Author Organization [facility] Address [address] [place] [address] Care Team Providers Care Nuclear Control Room Operator Name Role Phone Pedro Ortiz DO Primary Care Provider [phone] Encounter Details Date Type Department Care Team (Late st Contact Info) Description 09/25/2002 Outpatient Historical [facility] MRI DEPT Michael Hicks MD [address] [facility] [address] [place] [address] DEVIATED NASAL SEPTUM (Primary Dx) Social History Tobacco Use Types Packs/Day Years Used Date Smoking Tobacco: Never Assessed Comments Unknown Sex and Gender Information Value Date Recorded Sex Assigned at Not on file Legal Sex Female 5:17 AM COCOA ROASTER Gender Identity Not on file Sexual Orientation Not on file documented as of this encounter Plan of Treatment Upcoming Encounters Date Type Department Care Team (Late Contact Info) Description 08/21/2024 1:00 PM COCOA ROASTER Office Visit [facility] - [place] [address] [facility] [address] [place] [address] Brant Ratliff MD [address] [facility] [address] [place] [address] documented as of this encounter Visit Diagnoses Diagnosis Deviated nasal septum- Primary documented in this encounter Care Teams Nuclear Control Room Operator Relationship Specialty Start Date End Date Pedro Ortiz DO [address] [place] [id number] PCP - General Family Practice 07/14/24 documented as of this encounter
[2024-08-11 07:53] VITALS: BP 146/60; PULSE 75; RESP 16; TEMP 37; O2SAT 100
[2024-08-11 08:05] LABS: Basophils Absolute Auto 0.1 K/mm3 (0.0-0.1); Basophils Percent Auto 0.8 % (0.2-1.2); Eosinophils Absolute Auto 0.1 K/mm3 (0-0.3); Hematocrit 36.1 % (37.0-47.0); Hemoglobin 11.6 g/dL (12.0-15.0); Immature Granulocyte Absolute 0.08 K/mm3 (0.00-0.031); Immature Granulocyte Percent A 1.3 % (0-0.5); Lymphocytes Absolute Auto 1.87 K/mm3 (0.9-3.2); Lymphocytes Percent Auto 30.6 % (18.3-44.2); Mean Corpuscular HGB Conc 32.1 g/dl (32-36); Mean Corpuscular Hemoglobin 31.8 pg (26-34); Mean Corpuscular Volume 98.9 fl (80-100); Mean Platelet Volume 10.6 fl (7.4-10.4); Monocytes Absolute Auto 0.3 K/mm3 (0.1-0.6); Monocytes Percent Auto 4.3 % (2.6-8.5); Neutrophils Absolute Auto 3.7 K/mm3 (1.3-6.7); Nucleated Red Blood Cells Perc 0.3 % (0.0-0.2); Platelet Count Result 204 k/mm3 (150-375); Red Blood Count 3.65 M/mm3 (4.2-5.4); Red Cell Distribution Width 17.5 % (11.5-14.5); White Blood Count 6.1 K/mm3 (4.5-10.0)
[2024-08-11 08:17] LABS: INR 0.9; Prothrombin Time 11.9 Seconds (11.1-14.7)
--- NOTE | 2024-08-11 09:11 | P.SEDATION_ITS ---
Moderate Sedation Note-Pt Data Patient Data Diagnosis: multiple myeloma Present Complaint: multiple myeloma Procedure to be performed/Plan: bone marrow biopsy Allergies Allergy/AdvReac Type Severity Reaction Status Date / Time doxycycline Allergy Severe Itching Verified 08/04/24 09:59 acetaminophen (From Allergy Intermediate Rash Verified 08/10/24 15:43 Darvocet-N) alprazolam Allergy Intermediate Other-UNABLE Verified 07/26/24 09:49 TO RECALL minocycline Allergy Intermediate Itching, Verified 07/26/24 09:49 HIVES propoxyphene Allergy Intermediate Itching Verified 07/26/24 09:49 carboxymethylcellulose sodium Allergy Mild Other-UNABLE Verified 07/26/24 09:49 TO RECALL duloxetine Allergy Mild Unknown-UNABLE Verified 07/26/24 09:49 TO RECALL indomethacin Allergy Mild Unknown-UNABLE Verified 07/26/24 09:49 TO RECALL linaclotide Allergy Mild Other-UNABLE Verified 07/26/24 09:49 TO RECALL nabumetone Allergy Mild Unknown-UNABLE Verified 07/26/24 09:49 TO RECALL sulfamethoxazole Allergy Mild Unknown-UNABLE Verified 07/26/24 09:49 TO RECALL terbinafine Allergy Mild Unknown-UNABLE Verified 07/26/24 09:49 TO RECALL valdecoxib Allergy Mild Unknown-UNABLE Verified 07/26/24 09:49 TO RECALL etodolac Allergy Unknown UNKNOWN-UNABLE Verified 07/26/24 09:49 TO RECALL chlorpheniramine AdvReac Intermediate HARD TO Verified 07/26/24 09:49 AWAKEN codeine AdvReac Intermediate Nervousness, Verified 07/26/24 09:49 HEART RACES, HEAD FEELS STRANGE dexchlorpheniramine AdvReac Intermediate Other-ZEUS Verified 07/26/24 09:49 RGY levocarnitine AdvReac Intermediate (Trinalin)= Verified 07/26/24 09:49 Nausea levofloxacin AdvReac Intermediate Nausea and Verified 07/26/24 09:49 Vomiting phenylephrine AdvReac Intermediate Other-ZEUS Verified 07/26/24 09:49 RGY phenylpropanolamine AdvReac Intermediate Other- IMMU Verified 07/26/24 09:49 NE rofecoxib AdvReac Intermediate Swelling, Verified 07/26/24 09:49 WATER RETENTION scopolamine AdvReac Intermediate Other-ZEUS Verified 07/26/24 09:49 RGY amitriptyline AdvReac Mild Other-ZEUS Verified 07/26/24 09:49 RGY brompheniramine AdvReac Mild other- TOO Verified 07/26/24 09:49 DRYING carbinoxamine AdvReac Mild Other- TOO Verified 07/26/24 09:49 DRYING diclofenac AdvReac Mild HEARTBURN Verified 07/26/24 09:49 oxybutynin AdvReac Mild Rash Verified 07/26/24 09:49 ramelteon AdvReac Mild Nausea Verified 07/26/24 09:49 terfenadine AdvReac Mild Nausea Verified 07/26/24 09:49 trazodone AdvReac Mild Restless Verified 07/26/24 09:49 Sleep pregabalin (From Lyrica) AdvReac Unknown does not Verified 07/26/24 09:49 remember gelinique Allergy Intermediate Rash Uncoded 08/10/24 15:43 Home Medications ?Medication ?Instructions ?Recorded ?Confirmed ?Type omeprazole 20 mg capsule,delayed 20 mg PO DAILY 05/29/19 08/10/24 History release glucosamine [id number] See Rx Instructions PO DAILY 10/06/19 08/10/24 History 400 mg-200 mg-333 mg tablet multivitamin 1 tablet PO DAILY 10/06/19 08/10/24 History fluticasone propionate 50 2 spray intranasal BID #36.4 mL 09/15/22 08/10/24 Rx mcg/actuation nasal spray,suspension acetaminophen 650 mg 1,300 mg PO Q12H PRN Pain 01/28/23 08/10/24 History tablet,extended release (Tylenol Arthritis Pain) artificial tears with lanolin eye 1 applic EACH EYE 4-12XD PRN Dry 01/28/23 08/10/24 History ointment Eyes biotin 10,000 mcg capsule 10,000 mcg PO DAILY 01/28/23 08/10/24 History fish, borage, flaxseed oils-omega 1 cap PO DAILY 01/28/23 08/10/24 History 3,6,9 comb no.1 1,200 mg capsule ([place] 3-6-9) turmeric root extract 500 mg 500 mg PO BID 01/28/23 08/10/24 History capsule triamcinolone acetonide 0.1 % 1 applic topical PRN PRN Skin 01/27/24 08/10/24 History topical cream Irritation hydrochlorothiazide 25 mg tablet See Rx Instructions .Route 04/10/24 08/10/24 Rx .COMPLEX #90 tabs gabapentin 600 mg tablet 600 mg PO QID #360 tabs 05/01/24 08/10/24 Rx milnacipran 25 mg tablet ([place]) 25 mg PO DAILY 30 days #30 tabs 05/03/24 08/10/24 Rx atorvastatin 20 mg tablet 20 mg PO DAILY 06/22/24 08/10/24 History eszopiclone 3 mg tablet 3 mg PO QHS PRN insomnia 06/22/24 08/10/24 History ezetimibe 10 mg tablet 10 mg PO DAILY 06/22/24 08/10/24 History lidocaine-prilocaine 2.5 %-2.5 % 1 applic topical PRN PRN Port 06/22/24 08/10/24 History topical cream Access metoprolol succinate 100 mg 100 mg PO DAILY 06/22/24 08/10/24 History tablet,extended release 24 hr ondansetron 8 mg disintegrating 8 mg translingual Q8H PRN nausea 06/22/24 08/10/24 History tablet and vomiting ramipril 10 mg capsule See Rx Instructions .Route 07/03/24 08/10/24 Rx .COMPLEX #90 caps montelukast 10 mg tablet 10 mg PO DAILY #30 tabs 07/05/24 08/10/24 Rx dexamethasone 4 mg tablet 40 mg PO WEEKLY 07/19/24 08/10/24 History lenalidomide 15 mg capsule 15 mg PO DAILY 07/19/24 08/10/24 History (Revlimid) metformin 500 mg tablet,extended 500 mg PO DAILY #90 tabs 07/25/24 08/10/24 Rx release 24 hr levothyroxine 25 mcg tablet 25 mcg PO DAILY #30 tabs 07/31/24 08/10/24 Rx (Synthroid) lidocaine 5 % topical patch See Rx Instructions .Route 08/07/24 08/10/24 Rx .COMPLEX #30 patches metronidazole 1 % topical gel with 1 applic topical BID #55 grams 08/07/24 08/10/24 Rx pump Sedation/Anesthesia: No previous sedation/anesthesia problems (including family history). [facility] Past Medical History Medical History (Updated 07/25/24 @ 20:02 by Pedro Ortiz DO) COVID-19 end May 2020 Walker as ambulation aid Pulmonary hypertension HONG (obstructive sleep apnea) Hyperlipidemia Hypertension PMR (polymyalgia rheumatica) Chronic pain Insomnia Sleep apnea in adult Surgical History Surgical History H/O: hysterectomy History of esophagogastroduodenoscopy (EGD) H/O bladder repair surgery Hx of tonsillectomy H/O adenoidectomy Family History Family History Mother Family history of thyroid disease, Onset Age: 48 Father Family history of coronary artery disease, Onset Age: 94 Family history of congestive heart failure, Onset Age: 94 Sibling Diabetes mellitus Other Family history of cardiovascular disease Family history of elevated blood lipids No family history of malignant neoplasm Social History Social History Smoking status: Never smoker Second hand tobacco smoke exposure: No Alcohol intake: never Substance use: never Do You Feel Safe in your Home?: Yes Lack of Transportation: No Lack of Food: Sometimes True Current Housing: I Have Housing Concerned About Future Housing: No Difficulty Paying Gas/Electric Bills: No Difficulty Paying for Meds: No Currently Unemployed: No Education: High School Diploma/GED Difficulty w/ Childcare or Family Care: No Living arrangements: with family Additional living arrangements comments: Spiritual care concerns: No Mod Sed Physical Exam Physical Exam Pre Procedural Exam: Normal: Appearance, Throat, Lungs, Heart Rate and Heart Rhythm Hours since solid foods: 12 Hours since liquid intake: 12 Mallampati Classification: class II Internal Medicine - PN: Obj Da Vital Signs Vital Signs: Vital Signs - 24 hr 08/11/24 07:53 Temperature 98.6 F Pulse Rate 75 Respiratory Rate 16 Blood Pressure 146/60 H Pulse Oximetry 100 Oxygen Delivery Room Air Labs 08/11/24 07:50 Labs: Laboratory Results - last 24 hr 08/11/24 07:50 WBC 6.1 RBC 3.65 L Hgb 11.6 L Hct 36.1 L MCV 98.9 MCH 31.8 MCHC 32.1 RDW 17.5 H Plt Count 204 MPV 10.6 H Immature Gran % (Auto) 1.3 H Neut % (Auto) 61.0 Lymph % (Auto) 30.6 [place] % (Auto) 4.3 Eos % (Auto) 2.0 Baso % (Auto) 0.8 Lymph # (Auto) 1.87 [place] # (Auto) 0.3 Eos # (Auto) 0.1 Baso # (Auto) 0.1 Abs Immat Gran (auto) 0.08 H Absolute Neuts (auto) 3.7 Absolute Nucleated RBC 0.020 H Nucleated RBC % 0.3 H PT 11.9 INR 0.9 ASA Classification/Sedation ASA Classification/Sedation ASA Class: III Emergent: No Risks: Risks, benefits and alternatives explained and patient/family accepted plan for sedation. Patient re-evaluated immediately prior to sedation.
[2024-08-11 09:45] VITALS: BP 125/65; PULSE 72; RESP 16; O2SAT 96
[2024-08-11 10:00] VITALS: BP 119/50; PULSE 74; RESP 15; O2SAT 96
[2024-08-11 10:15] VITALS: BP 120/54; PULSE 76; RESP 16; O2SAT 96
[2024-08-11 10:30] VITALS: BP 118/83; PULSE 76; RESP 14; O2SAT 98
[2024-08-11 10:45] VITALS: BP 125/68; PULSE 75; RESP 16; O2SAT 98
== END 2024-08-11 10:48 | disposition home or self-care (01) ==
PROVIDERS: Radiology Diagnostic Radiology; PCP Family Medicine; Referring Provider Internal Medicine Hematology & Oncology; Visit Provider Radiology Diagnostic Radiology
DX: C90.00 Multiple myeloma not having achieved remission (principal)
CPT/HCPCS: 36415; 38222; 85025; 85610; 88305; 88311; 88313; J2003; J2250; J3010; J7040

== ENCOUNTER → 2024-10-02 14:21 | Outpatient (CLI) | payer OTHER, SELFPAY ==
--- NOTE | ~2024-10-02 | XR_ITS ---
EXAMINATION: XR ribs BI 3V w CXR 2V DATE: 10/02/2024 14:42 INDICATION: Right-sided pleurodynia. TECHNIQUE: A frontal inspiratory view of the chest and 3 views of the left ribs and 3 views of the ri ght ribs were obtained. COMPARISON: Chest radiograph dated 06/22/2024 FINDINGS: Right subclavian central venous port catheter with distal tip at the caudal superior vena cava. There is some undulation to the course of the catheter were passed between the right clavicle and first ri b but without evident kink or flattening of the catheter. No rib fractures identified on either the r ight or left. Lungs are clear with no focal airspace opacities, pulmonary edema, pleural effusion or pneumothorax. Mild cardiomegaly. Mild lumbar levoscoliosis and mild thoracic dextrocurvature, both wi th severe thoracic and lumbar spondylosis. IMPRESSION: 1. No rib fracture or acute cardiopulmonary disease. Line 2. Mild cardiomegaly. Reviewed, dictated and finalized at location A.
== END ==
LOC: EXPCRAD 14:24
PROVIDERS: PCP Family Medicine; Visit Provider Family Medicine
DX: I51.7 Cardiomegaly (principal); R07.81 Pleurodynia
CPT/HCPCS: 71046; 71110

== ENCOUNTER 2024-10-22 13:56 | Emergency (ER) | payer OTHER, SELFPAY ==
[2024-10-22 14:06] VITALS: BP 152/88; PULSE 70; RESP 16; TEMP 35.8; O2SAT 98
--- NOTE | 2024-10-22 14:11 | ED_ITS ---
HPI - URI/Sore Throat General Chief Complaint: Upper Respiratory Infection Stated Complaint: COUGH Time Seen by Provider: 10/22/24 14:14 Source: patient Mode of arrival: ambulatory Limitations: no limitations History of Present Illness HPI Narrative: 83 y/o female with hx DM, multiple myeloma, and pulmonary hypertension presented for c/o cough for over one week. Says the cough has been on and off thick and loose. Denies associated chest pain, palpitations, sob, wheezing, n/v/d/f/c. Pt is currently in remission, and undergoes chemo. Says she wants to be well enough to have evaluation with a surgeon for chronic breast pain. Related Data Home Medications ?Medication ?Instructions ?Recorded ?Confirmed ?Last Taken ?Type omeprazole 20 mg capsule,delayed 20 mg PO DAILY 05/29/19 10/22/24 08/10/24 History release glucosamine [id number] See Rx Instructions PO DAILY 10/06/19 10/22/24 08/10/24 History 400 mg-200 mg-333 mg tablet multivitamin 1 tablet PO DAILY 10/06/19 10/22/24 08/10/24 History acetaminophen 650 mg 1,300 mg PO Q12H PRN Pain 01/28/23 10/22/24 08/10/24 History tablet,extended release (Tylenol Arthritis Pain) artificial tears with lanolin eye 1 applic EACH EYE 4-12XD PRN Dry 01/28/23 10/22/24 08/10/24 History ointment Eyes biotin 10,000 mcg capsule 10,000 mcg PO DAILY 01/28/23 10/22/24 08/10/24 History fish, borage, flaxseed oils-omega 1 cap PO DAILY 01/28/23 10/22/24 08/10/24 History 3,6,9 comb no.1 1,200 mg capsule ([place] 3-6-9) turmeric root extract 500 mg 500 mg PO BID 01/28/23 10/22/24 08/10/24 History capsule triamcinolone acetonide 0.1 % 1 applic topical PRN PRN Skin 01/27/24 10/22/24 Unknown History topical cream Irritation atorvastatin 20 mg tablet 20 mg PO DAILY 06/22/24 10/22/24 08/10/24 History eszopiclone 3 mg tablet 3 mg PO QHS PRN insomnia 06/22/24 10/22/24 08/09/24 History lidocaine-prilocaine 2.5 %-2.5 % 1 applic topical PRN PRN Port 06/22/24 10/22/24 Unknown History topical cream Access metoprolol succinate 100 mg 100 mg PO DAILY 06/22/24 10/22/24 08/10/24 History tablet,extended release 24 hr ondansetron 8 mg disintegrating 8 mg translingual Q8H PRN nausea 06/22/24 10/22/24 Unknown History tablet and vomiting levothyroxine 25 mcg tablet 50 mcg PO DAILY 09/15/24 10/22/24 Unknown History (Synthroid) Allergies Allergy/AdvReac Type Severity Reaction Status Date / Time doxycycline Allergy Severe Itching Verified 10/13/24 09:43 acetaminophen (From Allergy Intermediate Rash Verified 10/13/24 09:43 Darvocet-N) alprazolam Allergy Intermediate Other-UNABLE Verified 10/13/24 09:43 TO RECALL minocycline Allergy Intermediate Itching, Verified 10/13/24 09:43 HIVES propoxyphene Allergy Intermediate Itching Verified 10/13/24 09:43 carboxymethylcellulose sodium Allergy Mild Other-UNABLE Verified 10/13/24 09:43 TO RECALL duloxetine Allergy Mild Unknown-UNABLE Verified 10/13/24 09:43 TO RECALL indomethacin Allergy Mild Unknown-UNABLE Verified 10/13/24 09:43 TO RECALL linaclotide Allergy Mild Other-UNABLE Verified 10/13/24 09:43 TO RECALL nabumetone Allergy Mild Unknown-UNABLE Verified 10/13/24 09:43 TO RECALL sulfamethoxazole Allergy Mild Unknown-UNABLE Verified 10/13/24 09:43 TO RECALL terbinafine Allergy Mild Unknown-UNABLE Verified 10/13/24 09:43 TO RECALL valdecoxib Allergy Mild Unknown-UNABLE Verified 10/13/24 09:43 TO RECALL etodolac Allergy Unknown UNKNOWN-UNABLE Verified 10/13/24 09:43 TO RECALL chlorpheniramine AdvReac Intermediate HARD TO Verified 10/13/24 09:43 AWAKEN codeine AdvReac Intermediate Nervousness, Verified 10/13/24 09:43 HEART RACES, HEAD FEELS STRANGE dexchlorpheniramine AdvReac Intermediate Other-ZEUS Verified 10/13/24 09:43 RGY levocarnitine AdvReac Intermediate (Trinalin)= Verified 10/13/24 09:43 Nausea levofloxacin AdvReac Intermediate Nausea and Verified 10/13/24 09:43 Vomiting phenylephrine AdvReac Intermediate Other-ZEUS Verified 10/13/24 09:43 RGY phenylpropanolamine AdvReac Intermediate Other- IMMU Verified 10/13/24 09:43 NE rofecoxib AdvReac Intermediate Swelling, Verified 10/13/24 09:43 WATER RETENTION scopolamine AdvReac Intermediate Other-ZEUS Verified 10/13/24 09:43 RGY amitriptyline AdvReac Mild Other-ZEUS Verified 10/13/24 09:43 RGY brompheniramine AdvReac Mild other- TOO Verified 10/13/24 09:43 DRYING carbinoxamine AdvReac Mild Other- TOO Verified 10/13/24 09:43 DRYING diclofenac AdvReac Mild HEARTBURN Verified 10/13/24 09:43 oxybutynin AdvReac Mild Rash Verified 10/13/24 09:43 ramelteon AdvReac Mild Nausea Verified 10/13/24 09:43 terfenadine AdvReac Mild Nausea Verified 10/13/24 09:43 trazodone AdvReac Mild Restless Verified 10/13/24 09:43 Sleep pregabalin (From Lyrica) AdvReac Unknown does not Verified 10/13/24 09:43 remember gelinique Allergy Intermediate Rash Uncoded 10/13/24 09:43 Review of Systems Review of Systems: CONSTITUTIONAL: Denies body aches, fever, chills, or sweats. EYES: Denies visual changes, redness, or discharge. ENT: Denies rhinorrhea, congestion, sore throat, or otalgia. CARDIOVASCULAR: Denies chest pain, palpitations, or edema. RESPIRATORY: Reports cough, denies sob, wheezing. GASTROINTESTINAL: Denies abdominal pain, nausea, vomiting, or diarrhea. SKIN: Denies rash NEUROLOGIC: Denies headache, numbness, tingling, or weakness. All systems reviewed & are unremarkable except as noted in HPI and below PMFSH Past Medical History Medical History Type 2 diabetes mellitus COVID-19 end May 2020 Walker as ambulation aid Pulmonary hypertension HONG (obstructive sleep apnea) Hyperlipidemia Hypertension PMR (polymyalgia rheumatica) Chronic pain Insomnia Sleep apnea in adult Surgical History Surgical History H/O: hysterectomy History of esophagogastroduodenoscopy (EGD) H/O bladder repair surgery Hx of tonsillectomy H/O adenoidectomy Family History Family History Mother Family history of thyroid disease, Onset Age: 48 Father Family history of coronary artery disease, Onset Age: 94 Family history of congestive heart failure, Onset Age: 94 Sibling Diabetes mellitus Other Family history of cardiovascular disease Family history of elevated blood lipids No family history of malignant neoplasm Social History Social History Smoking status: Never smoker Second hand tobacco smoke exposure: No Alcohol intake: never Substance use: never Substance use type: does not use Do You Feel Safe in your Home?: Yes Lack of Transportation: No Lack of Food: Sometimes True Current Housing: I Have Housing Concerned About Future Housing: No Difficulty Paying Gas/Electric Bills: No Difficulty Paying for Meds: No Currently Unemployed: No Education: High School Diploma/GED Difficulty w/ Childcare or Family Care: No Living arrangements: with family Additional living arrangements comments: Spiritual care concerns: No Comments At time of signature, I have reviewed and agree with nursing past medical, surgical, social and family history unless otherwise noted. Please see nursing chart for further information. There is no relevant family history pertinent to the presenting complaint Exam Narrative: GENERAL: Well-appearing, in no acute distress. EYES: EOMI. No redness or drainage. Conjunctivae normal. ENT: Mucous membranes pink and moist. No rhinorrhea. TMs normal bilaterally. Throat normal. Uvula midline. NECK: Normal AROM. Supple. CHEST: No respiratory distress. lungs clear to all haji. HEART: Regular rate and rhythm. No murmur appreciated. SKIN: Warm, dry, no rash. Capillary refill normal. Normal skin turgor. NEURO: Alert and oriented x3. Course Course Emergency Course: Patient is aware of diagnosis, understands and agrees to treatment plan. Anticipatory guidance given. Patient agrees to follow-up as directed and is aware of reasons to seek care at the emergency department. Portions of this record may have been created with voice recognition software Level of Care: Express Care Visit Vital Signs Vital signs: Vital Signs Temperature 96.5 F L 10/22/24 14:06 Pulse Rate 70 10/22/24 14:06 Respiratory Rate 16 10/22/24 14:06 Blood Pressure 152/88 H 10/22/24 14:06 Pulse Oximetry 98 10/22/24 14:06 Temperature 96.5 F L 10/22/24 14:06 Pulse Rate 70 10/22/24 14:06 Respiratory Rate 16 10/22/24 14:06 Blood Pressure 152/88 H 10/22/24 14:06 Pulse Oximetry 98 10/22/24 14:06 MDM - URI/Sore Throat MDM Narrative Medical decision making narrative: Discussed physical exam findings and Rx's. Advised supportive measures and signs/symptoms to go to the ER. Pt is appropriate for outpt treatment and f/u. Differential Diagnosis Differential diagnosis: Likely upper respiratory infection, sinusitis, viral infection, bronchitis, pharyngitis and other (Angioedema, perforation, asthma, pneumonia, PE, tension pneumothorax, cardiac tamponade PR, pericarditis, pleural effusion, CHF, bronchitis, cardiac arrhythmia) Discharge Plan Discharge Clinical Impression: Bronchitis Patient Disposition: Home Condition: Stable Instructions: Antibiotic Form, Acute Bronchitis (ED) Additional Instructions: Acute bronchitis can be contagious because it is usually caused by infection with a virus or bacteria. It is usually for a few days but you can be contagious for up to one week. Take medication as directed Tylenol every 8 hours as needed for pain Symptomatic treatment includes: rest, fluids, and increase humidity of the air at home. Follow up with your primary care provider as needed in 1 week Go to the ER for worsening symptoms or concerns Patient Language: Liberian Prescriptions: New azithromycin [Zithromax Z-Venkat] 250 mg tablet See Rx Instructions .ROUTE .COMPLEX Qty: 6 0RF Rx Instructions: For 250 mg dose pack: take 500 mg today (day 1), then 250 mg for 4 days (days 2-5) benzonatate 200 mg capsule 200 mg PO TID PRN (Reason: cough) Qty: 20 0RF No Action levothyroxine [Synthroid] 25 mcg tablet 50 mcg PO DAILY omeprazole 20 mg capsule,delayed release(DR/EC) 20 mg PO DAILY oxycodone 5 mg capsule 5 mg PO DAILY PRN (Reason: pain) Qty: 14 0RF multivitamin Tablet 1 tablet PO DAILY glucosamine [id number] 400-200-333 mg tablet See Rx Instructions PO DAILY Rx Instructions: 1500/1200 2 TABS PO daily; give with meal/snack atorvastatin 20 mg tablet 20 mg PO DAILY Patient Comments: . metoprolol succinate 100 mg tablet extended release 24 hr 100 mg PO DAILY lidocaine-prilocaine 2.5-2.5 % cream 1 applic topical PRN PRN (Reason: Port Access) Patient Comments: To numb for port access eszopiclone 3 mg tablet 3 mg PO QHS PRN (Reason: insomnia) ondansetron 8 mg tablet,disintegrating 8 mg translingual Q8H PRN (Reason: nausea and vomiting) acetaminophen [Tylenol Arthritis Pain] 650 mg Tablet Extended Release 1,300 mg PO Q12H PRN (Reason: Pain) Patient Comments: .. biotin 10,000 mcg Capsule 10,000 mcg PO DAILY artificial tears with lanolin Ointment 1 applic EACH EYE 4-12XD PRN (Reason: Dry Eyes) Patient Comments: . turmeric root extract 500 mg Capsule 500 mg PO BID [place] 3-6-9 1,200 mg Capsule 1 cap PO DAILY triamcinolone acetonide 0.1 % cream 1 applic topical PRN PRN (Reason: Skin Irritation) fluticasone propionate 50 mcg/actuation spray,suspension 2 spray NASAL BID Qty: 36.4 12RF Patient Comments: Pt takes PRN hydrochlorothiazide 25 mg tablet See Rx Instructions .ROUTE .COMPLEX Qty: 90 1RF Dose Instruction: TAKE 1 TABLET BY MOUTH DAILY Patient Comments: . Rx Instructions: TAKE 1 TABLET BY MOUTH DAILY gabapentin 600 mg tablet 600 mg PO QID Qty: 360 1RF [place] 25 mg tablet 25 mg PO DAILY 30 Days Qty: 30 5RF Rx Instructions: Take 1 tab p.o. q.day ramipril 10 mg capsule See Rx Instructions .ROUTE .COMPLEX Qty: 90 3RF Dose Instruction: TAKE 1 CAPSULE BY MOUTH DAILY Rx Instructions: TAKE 1 CAPSULE BY MOUTH DAILY montelukast 10 mg tablet 10 mg PO DAILY Qty: 30 0RF Rx Instructions: LAST REFILL UNTIL SEEN ezetimibe 10 mg tablet See Rx Instructions .ROUTE .COMPLEX Qty: 90 0RF Dose Instruction: TAKE 1 TABLET BY MOUTH DAILY Rx Instructions: TAKE 1 TABLET BY MOUTH DAILY lidocaine 5 % adhesive patch,medicated See Rx Instructions .ROUTE .COMPLEX Qty: 30 0RF Dose Instruction: APPLY 1 PATCH TOPICALLY TO THE SKIN DAILY. LEAVE ON MOST PAINFUL AREA FOR UP TO 12 HOURS Rx Instructions: APPLY 1 PATCH TOPICALLY TO THE SKIN DAILY. LEAVE ON MOST PAINFUL AREA FOR UP TO 12 HOURS metronidazole 1 % gel with pump 1 applic topical BID Qty: 55 1RF Rx Instructions: APPLY ONE PUMP TOPICALLY TWICE DAILY Follow-up/Referrals: Pedro Ortiz DO [Primary Care Provider] - Time of Disposition: 14:37
== END 2024-10-22 14:49 | disposition home or self-care (01) ==
PROVIDERS: PCP Family Medicine
DX: J40 Bronchitis, not specified as acute or chronic (principal); E11.9 Type 2 diabetes mellitus without complications; C90.00 Multiple myeloma not having achieved remission; I27.20 Pulmonary hypertension, unspecified; I10 Essential (primary) hypertension; E78.5 Hyperlipidemia, unspecified; M35.3 Polymyalgia rheumatica; Z86.16 Personal history of COVID-19
CPT/HCPCS: 99213; G0463

== ENCOUNTER 2024-11-17 09:21 | Outpatient (CLI) | payer OTHER, SELFPAY ==
--- NOTE | ~2024-11-17 | MMUS_ITS ---
EXAMINATION: MM diagnostic priyanka BI w homero, US breast RT limited HISTORY: Right breast pain for 2 months. TECHNIQUE: Additional 3-D tomosynthesis images of the breasts were performed and synthetic 2-D images were generated. CAD analysis was submitted and interpreted. High resolution Limited right breast ult rasound was performed. COMPARISON: 02/21/2015 BREAST PARENCHYMAL COMPOSITION: Not dense: There are scattered areas of fibroglandular density. FINDINGS: MAMMOGRAPHIC FINDINGS: There are no suspicious masses, calcifications or architectural distortion in either breast to sugges t malignancy. There are benign right breast calcifications. ULTRASOUND: Complete US of all 4 quadrants of the breast/s and retroareolar region was reviewed. There is heterog eneous echotexture in the 10:00 and 12:00 positions of the right breast, although no discrete mass id entified. IMPRESSION: 1. No evidence for malignancy in either breast. 2. Routine yearly screening mammogram and regular clinical breast examination are recommended. BI-RADS Category 1: Negative Reviewed, dictated and finalized at location A. IMPRESSION: 1. No evidence for malignancy in either breast. 2. Routine yearly screening mammogram and regular clinical breast examination a re recommended. BI-RADS Category 1: Negative
--- OUTSIDE RECORDS SUMMARY | 2024-11-17 09:28 | XMS_ITS | Encounter Summary ---
Author Organization [facility] Address [address] [place] [address] Care Team Providers Care Parachute Accessories Attacher Name Role Phone Pedro Ortiz DO Primary Care Provider [phone] Encounter Details Date Type Department Care Team (Late st Contact Info) Description 09/25/2002 Outpatient Historical [facility] MRI DEPT Michael Hicks MD [address] [facility] [address] [place] [address] DEVIATED NASAL SEPTUM (Primary Dx) Social History Tobacco Use Types Packs/Day Years Used Date Smoking Tobacco: Never Assessed Comments Unknown Sex and Gender Information Value Date Recorded Sex Assigned at Not on file Legal Sex Female 5:17 AM BIOPHARMACEUTICAL REP Gender Identity Not on file Sexual Orientation Not on file documented as of this encounter Plan of Treatment Upcoming Encounters Date Type Department Care Team (Late Contact Info) Description 02/05/2025 9:45 AM CDT Office Visit [facility] - [place] [address] [facility] [address] [place] [address] Brant Ratliff MD [address] [facility] [address] [place] [address] documented as of this encounter Visit Diagnoses Diagnosis Deviated nasal septum- Primary documented in this encounter Care Teams Parachute Accessories Attacher Relationship Specialty Start Date End Date Pedro Ortiz DO [address] [place] [phone] PCP - General Family Practice 07/14/24 documented as of this encounter
--- OUTSIDE RECORDS SUMMARY | 2024-11-17 09:28 | XMS_ITS | Clinical Summary ---
Author Organization [facility] Address [address] [place] [address] Care Team Providers Care Environmental Health Safety Manager Name Role Phone Pedro Ortiz DO Primary Care Provider [phone] Allergies Active Allergy Reactions Criticality Noted Date Comments Acetaminophen-Pamabrom Unknown 08/29/2018 Alprazolam Other (See Comments) Low 08/29/2018 Sleeps all day Amitriptyline Rash Low 08/29/2018 Sleeps all day Brompheniramine-Phenylephrine Unknown 2018 Carbinoxamine-Pseudoephedrine Unknown 2018 Carboxymethylcellulose Sodium Unknown 2018 Codeine Anxiety Low 11/26/2020 Desloratadine Unknown 08/29/2018 Dextran 70-Hypromellose (Pf) Unknown 019 Diclofenac Unknown 08/29/2018 Doxycycline Monohydrate Unknown 08/29/2018 Kyqlmxyca-Snf-Kn-Acetaminophen Unknown 08/29 Duloxetine Unknown 08/29/2018 Levofloxacin Unknown 01/11/2024 Meperidine Unknown 08/29/2018 Nickel Unknown 01/11/2024 Phenylephrine-Guaifenesin Unknown 08/29/2018 Prednisone Unknown 01/11/2024 Propoxyphene N-Acetaminophen Rash Low 021 Ramelteon Unknown 08/29/2018 Sulfamethoxazole-Trimethoprim Unknown 2018 Tramadol-Acetaminophen Swelling Low 11/26/2020 Trazodone Unknown 01/11/2024 Trinalin Unknown 08/29/2018 Ultracef Unknown 08/29/2018 Medications hydroCHLOROthia zide 25 mg tablet TK 1 T PO QD 9 Active montelukast (SINGULAIR) 10 mg tablet TK 1 T PO D 9 Active levothyroxine 50 mcg tablet TK 1 T PO QD 8 Active ezetimibe (ZETIA) 10 mg tablet TK 1 T PO QD 9 Active omega 9-oix-leo-fish oil (Fish Oil) 100-160-1,000 mg Capsule Take by mouth. Acti ve MULTIVITAMIN ORAL Take by mouth. Activ e TURMERIC ORAL Take by mouth. A ctive omeprazole (PriLOSEC) 20 mg Capsule, Delayed Release(E.C.) Take 20 mg by mouth. Active metoprolol succinate (TOPROL XL) 100 mg Extended Release 24 hour tablet TK 1 T PO D 9 Active acetaminophen (TYLENOL ARTHRITIS) 650 mg Extended Release tablet Take 650 mg by mouth. Active atorvastatin (LIPITOR) 20 mg tablet Take 20 mg by mouth daily at bedtime. 3 Active eszopiclone (LUNESTA) 3 mg Tablet Take 3 mg by mouth nightly as needed. 2 Active lidocaine (LIDODERM) 5 % Adhesive Patch, Medicated APPLY 1 PATCH TOPICALLY TO THE SKIN DAILY. LEAVE ON MOST PAINFUL AREA FOR UP TO 12 HOURS 3 Active metroNIDAZOLE 1 % Gel with Pump Apply to affected area. Active milnacipran (Savella) 25 mg tablet Take 25 mg by mouth daily. 3 Active ramipriL (ALTACE) 10 mg capsule Take 10 mg by mouth daily. 3 Active fluticasone propion-salmete roL (ADVAIR DISKUS,WIXELA INHUB) 250-50 mcg/dose disk inhaler Take 1 Puff by inhalation 2 times daily. Active gabapentin (NEURONTIN) 600 mg tablet Take 600 mg by mouth 3 times daily. Active glucosamine HCl/chondroitin velasquez (GLUCOSAMINE-CH ONDROITIN ORAL) Take by mouth. Active VIT B COMP NO.5-TXLDM-V-BI OTIN ORAL Take by mouth. Activ e dextromethorpha n-guaiFENesin (MUCINEX DM) 30-600 mg Tablet Sustained Release 12HR Take 1 Tablet by mouth every 12 hours. Active acyclovir (ZOVIRAX) 400 mg tablet Take 1 Tablet (400 mg) by mouth 2 times daily. 60 Tablet 5 4 Active ondansetron (ZOFRAN ODT) 8 mg Tablet, Rapid Dissolve Dissolve 1 tablet on top of tongue then swallow with saliva every 8 hours as needed for nausea or vomiting 30 Tablet 1 4 Active lidocaine-prilo edwin (EMLA) 2.5-2.5 % Cream Apply a quarter size amount to port site 30 minutes before access. 30 Gram 1 4 Active traMADoL (ULTRAM) 50 mg tabletIndicatio ns:Multiple myeloma not having achieved remission (CMS/HCC) Take 1 Tablet (50 mg) by mouth every 6 hours as needed for Pain. 60 Tablet 4 Active dexAMETHasone (DECADRON) 4 mg tablet Take 5 tablets by mouth weekly on every Wednesday 40 Tablet 5 4 Active penicillin V potassium (VEETID) 500 mg tablet Take 500 mg by mouth 4 times daily. 4 Active sulfamethoxazol e-trimethoprim (BACTRIM DS) 800-160 mg tablet TAKE 1 TABLET BY MOUTH TWICE DAILY ON MONDAYS, WEDNESDAYS, AND FRIDAYS 24 Tablet 5 5 Active lenalidomide (Revlimid) 15 mg capsuleIndicati ons:Multiple myeloma not having achieved remission (CMS/HCC) TAKE 1 CAPSULE BY MOUTH DAILY FOR 14 DAYS THEN 7 DAYS OFF 14 Capsule 5 Active Active Problems Problem Noted Date Diagnosed Date Fibromyalgia 11/26/2020 Spondylolisthesis at L4-L5 level 11/26/2020 Encounters Date Type Department Care Team Description 11/09/2024 External Device Data ST[facility] ABSTRACTION Provider, Abstract 11/08/2024 External Device Data [facility] ABSTRACTION Provider, Abstract 11/07/2024 External Device Data [facility] ABSTRACTION Provider, Abstract 11/06/2024 Orders Only [facility] Oncology and Hematology - [place] [address] [place] [address] Brant Ratliff MD Multiple myeloma not having achieved remission (CMS/HCC); Benign hypertension 11/02/2024 4:30 PM CDT Telephone Check Up [facility] [place] [address] [place] [address] Brant Ratliff MD Multiple myeloma not having achieved remission (CMS/HCC) (Primary Dx) 10/31/2024 Orders Only [facility]ematology - [place] [address] [place] [address] Brant Ratliff MD 10/24/2024 External Device Data STL ABSTRACTION Provider, Abstract 10/23/2024 Orders Only [facility]ology - [place] [address] [place] [address] Brant Ratliff MD Multiple myeloma not having achieved remission (CMS/HCC); Benign hypertension 10/16/2024 Orders Only [facility]ematology - [place] [address] Brant Ratliff MD 10/09/2024 Orders Only [facility] and Hematology - [place] [address] Brant Ratliff MD Multiple myeloma not having achieved remission (CMS/HCC); Benign hypertension 10/02/2024 Orders Only [facility]ematology - [place] [address] [place] [id number] Brant Ratliff MD 09/28/2024 Telephone [facility] and [facility]ematology - [place] [address] Brant Ratliff MD Breast pain 09/27/2024 Telephone [facility]ology - [place] [address] Brant Ratliff MD error 09/25/2024 Orders Only [facility] and [facility]ematology - [place] [address] [place] [phone] Brant Ratliff MD Multiple myeloma not having achieved remission (CMS/HCC); Benign hypertension 09/15/2024 Orders Only [facility] - [place] [address] [place] [address] Brant Ratliff MD 09/11/2024 Orders Only [facility] and Hematology - [place] [address] [place] [phone] Brant Ratliff MD Multiple myeloma not having achieved remission (CMS/HCC); Benign hypertension 09/05/2024 Orders Only [facility]ematology - [place] [address] [place] [address] Brant Ratliff MD 09/04/2024 Orders Only [facility] and Hematology - [place] [address] [place] [address] Brant Ratliff MD 08/28/2024 Orders Only [facility]ematology - [place] [address] [place] [address] Brant Ratliff MD Multiple myeloma not having achieved remission (CMS/HCC); Benign hypertension 08/24/2024 Orders Only [facility]ology - [place] [address] [place] [address] Brant Ratliff MD 08/24/2024 Abstract [facility]ematology - [place] [address] Brant Ratliff MD 08/21/2024 1:00 PM [employer] Office Visit [facility] and Hematology - [place] [address] [place] [phone] Brant Ratliff MD Multiple myeloma not having achieved remission (CMS/HCC) (Primary Dx) 08/21/2024 Orders Only [facility] and Hematology - [place] [address] Brant Ratliff MD from Last 3 Months [...] on file Legal Sex Female 5:17 AM S[employer] 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[employer]POS[employer] Gender Identity Not on file Sexual Orientation Not on file Last Filed Vital Signs Vital Sign Reading Time Taken Comments Blood Pressure 152/83 08/21/2024 1:07 PM [employer] Pt is anxious Pulse 79 08/21/2024 1:05 PM [employer] Temperature 35.3 C (95.5 F) 08/21/2024 1:05 PM [employer] Respiratory Rate 15 08/21/2024 1:05 PM [employer] Oxygen Saturation 93% 08/21/2024 1:0 5 PM [employer] Inhaled Oxygen Concentration - - Weight 97.6 kg (215 lb 3.2 oz) 08/21/2024 1:05 PM [employer] Height 172.7 cm (5' 8) 01/11/2024 10:4 4 AM CDT Body Mass Index 32.72 01/11/2024 10:44 AM CDT Plan of Treatment Upcoming Encounters Date Type Department Care Team (Late st Contact Info) Description 02/05/2025 9:45 AM CDT Office Visit [facility] On[facility] and Hematology - [place] [address] [facility] [address] [place] [address] Brant Ratliff MD [address] [facility] [address] [place] [address] Health Maintenance Due Date Last Done Comments DTAP/TDAP/TD VACCINES (1 - Tdap) 12/30/1959 PNEUMOCOCCAL VACCINE 50+ YEARS (1 of 2 - PCV) 12/29/18 60 03/31/2018 ZOSTER VACCINE (1 of 2) 12/30/1959 OSTEOPOROSIS SCREENING 2005 RSV VACCINE (60+ or ) (1 - 1-dose 75+ series) 12/30/2015 INFLUENZA VACCINE (#1) 2024 03/25/2018 Procedures Procedure Name Priority Date/Time Associated Diagnosis Comments KAPPA/LAMBDA LIGHT CHAINS Routine 2024 3:52 PM CDT COMPREHENSIVE METABOLIC PANEL Routine 10/26/2024 2:26 PM CDT IGG Routine 10/13/2024 10:58 AM CDT COMPREHENSIVE METABOLIC PANEL Routine 09/29/2024 12:26 PM CDT BASIC METABOLIC PANEL Routine 09/29/2024 11:55 AM CDT COMPREHENSIVE METABOLIC PANEL Routine 09/29/2024 11:51 AM CDT BASIC METABOLIC PANEL Routine 09/15/2024 1:26 PM CDT COMPREHENSIVE METABOLIC PANEL Routine 09/15/2024 1:18 PM CDT BASIC METABOLIC PANEL Routine 09/01/2024 4:28 PM CDT COMPREHENSIVE METABOLIC PANEL Routine 09/01/2024 4:18 PM CDT CBC WITH DIFFERENTIAL Routine 08/18/2024 2:00 PM [employer] CBC WITH AUTODIFFERENTIAL Routine 2024 9:54 AM [employer] WORK[employer]POS[employer] from Last 3 Months Results * KAPPA/LAMBDA, FREE LIGHT CHAINS (10/26/2024 3:52 PM CDT) Blood us Brant Ratliff MD CHEMISTRY ORDERABLES Final Resu lt * COMPREHENSIVE METABOLIC PANEL (10/26/2024 2:26 PM CDT) Only the most recent of5 resultswithin the time period is included. Blood us Brant Ratliff MD CHEMISTRY ORDERABLES Final Resu lt * IGG (10/13/2024 10:58 AM CDT) Blood us Brant Ratliff MD CHEMISTRY ORDERABLES Final Resu lt * BASIC METABOLIC PANEL (09/29/2024 11:55 AM CDT) Only the most recent of3 resultswithin the time period is included. Blood us Brant Ratliff MD CHEMISTRY ORDERABLES Final Resu lt * CBC WITH DIFFERENTIAL (08/18/2024 2:00 PM [employer]) Blood us Brant Ratliff MD HEMATOLOGY ORDERABLES Final Res ult * CBC WITH AUTODIFFERENTIAL (08/18/2024 9:54 AM [employer] WORK[employer]) Blood us Brant Ratliff MD HEMATOLOGY ORDERABLES Final Res ult from Last 3 Months Insurance RX [facility] [employer] [facility] [employer] Care Teams Environmental Health Safety Manager Relationship Specialty Start Date End Date Pedro Ortiz DO [address] [place] [address] PCP - General Family Practice 07/14/24
--- OUTSIDE RECORDS SUMMARY | 2024-11-17 09:28 | XMS_ITS ---
Author Organization Unknown Medications Medication Instructions Effective Dates (start - stop) Status montelukast 10 MG Oral Tablet 2023-06-15 00:00:00Z - Completed eszopiclone 3 MG Oral Tablet [id number] 0:00:00Z - Completed milnacipran hydrochloride 25 MG Oral Tablet [Savella] - Completed atorvastatin 20 MG Oral Tablet 2023-04-25 T00:00:00Z - Completed atorvastatin 20 MG Oral Tablet 2023-05-23 T00:00:00Z - Completed milnacipran hydrochloride 25 MG Oral Tablet [Savella] - Completed levothyroxine sodium 0.05 MG Oral Tablet - Completed atorvastatin 20 MG Oral Tablet 2023-04-18 T00:00:00Z - Completed eszopiclone 3 MG Oral Tablet [id number] 0:00:00Z - Completed montelukast 10 MG Oral Tablet 2023-12-22 00:00:00Z - Completed levothyroxine sodium 0.05 MG Oral Tablet - Completed ramipril 10 MG Oral Capsule [id number] :00:00Z - Completed milnacipran hydrochloride 25 MG Oral Tablet [Savella] - Completed ramipril 10 MG Oral Capsule [id number] :00:00Z - Completed atorvastatin 20 MG Oral Tablet 2023-10-19 T00:00:00Z - Completed gabapentin 600 MG Oral Tablet 2023-06-16 00:00:00Z - Completed sulfamethoxazole 800 MG / trimethoprim 160 MG Oral Tablet - Compl eted gabapentin 600 MG Oral Tablet 2023-03-18 00:00:00Z - Completed gabapentin 600 MG Oral Tablet 2023-11-03 00:00:00Z - Completed eszopiclone 3 MG Oral Tablet [id number] 0:00:00Z - Completed milnacipran hydrochloride 25 MG [...] - Completed ezetimibe 10 MG Oral Tablet [id number] :00:00Z - Completed montelukast 10 MG Oral Tablet 2023-06-16 00:00:00Z - Completed eszopiclone 3 MG Oral Tablet [id number] 0:00:00Z - Completed ezetimibe 10 MG Oral Tablet [id number] :00:00Z - Completed lidocaine 0.05 MG/MG Medicated Patch 202300:00:00Z - Completed eszopiclone 3 MG Oral Tablet [id number] 0:00:00Z - Completed levothyroxine sodium 0.05 MG Oral Tablet - Completed eszopiclone 3 MG Oral Tablet [id number] 0:00:00Z - Completed atorvastatin 20 MG Oral Tablet 2023-04-16 T00:00:00Z - Completed metronidazole 0.01 MG/MG Topical Gel 202300:00:00Z - Completed cholecalciferol 1.25 MG Oral Capsule 202200:00:00Z - Completed 24 HR metformin hydrochlorid e 500 MG Extended Release Oral Tablet - Complete d ramipril 10 MG Oral Capsule [id number] :00:00Z - Completed atorvastatin 20 MG Oral Tablet 2023-08-13 T00:00:00Z - Completed lidocaine 0.05 MG/MG Medicated Patch 2023T00:00:00Z - Completed eszopiclone 3 MG Oral Tablet [id number] 0:00:00Z - Completed 24 HR metoprolol succinate 1 00 MG Extended Release Oral Tablet - Complete d acyclovir 400 MG Oral Tablet [id number] 0:00:00Z - Completed lidocaine 0.05 MG/MG Medicated [...] - Completed ramipril 10 MG Oral Capsule [id number] :00:00Z - Completed ramipril 10 MG Oral Capsule [id number] :00:00Z - Completed acyclovir 400 MG Oral Tablet [id number] 0:00:00Z - Completed atorvastatin 20 MG Oral Tablet 2023-05-26 T00:00:00Z - Completed 24 HR metoprolol succinate 1 00 MG Extended Release Oral Tablet - Complete d atorvastatin 20 MG Oral Tablet 2023-01-25 T00:00:00Z - Completed metronidazole 0.01 MG/MG Topical Gel 202200:00:00Z - Completed ezetimibe 10 MG Oral Tablet [id number] :00:00Z - Completed eszopiclone 3 MG Oral Tablet [id number] 0:00:00Z - Completed lidocaine 0.05 MG/MG Medicated Patch 202200:00:00Z - Completed eszopiclone 3 MG Oral Tablet [id number] 0:00:00Z - Completed metronidazole 0.01 MG/MG Topical [...] - Completed amlodipine 5 MG Oral Tablet [id number] :00:00Z - Completed eszopiclone 3 MG Oral Tablet [id number] 0:00:00Z - Completed milnacipran hydrochloride 25 MG Oral Tablet [Savella] - Completed montelukast 10 MG Oral Tablet 2023-09-25 00:00:00Z - Completed metronidazole 0.01 MG/MG Topical Gel 202300:00:00Z - Completed eszopiclone 3 MG Oral Tablet [id number] 0:00:00Z - Completed eszopiclone 3 MG Oral Tablet [id number] 0:00:00Z - Completed atorvastatin 20 MG Oral Tablet 2023-07-18 T00:00:00Z - Completed 24 HR metoprolol succinate 1 00 MG Extended Release Oral Tablet - Complete d ezetimibe 10 MG Oral Tablet [id number] :00:00Z - Completed levothyroxine sodium 0.05 MG Oral Tablet - Completed gabapentin 600 MG Oral Tablet 2023-03-11 00:00:00Z - Completed eszopiclone 3 MG Oral Tablet [id number] 0:00:00Z - Completed ezetimibe 10 MG Oral Tablet [id number] :00:00Z - Completed lidocaine 0.05 MG/MG Medicated Patch 202300:00:00Z - Completed metronidazole 0.01 MG/MG Topical Gel 202200:00:00Z - Completed fluticasone propionate 0.05 MG/ACTUAT Metered Dose Nasal [place] [facility] mpleted montelukast 10 MG Oral Tablet 2023-03-18 00:00:00Z - Completed hydrochlorothiazide 25 MG Or al Tablet - Completed eszopiclone 3 MG Oral Tablet [id number] 0:00:00Z - Completed - - Compl eted hydrochlorothiazide 25 MG Or al Tablet - Completed levothyroxine sodium 0.05 MG Oral Tablet - Completed milnacipran hydrochloride 25 MG Oral Tablet [Savella] - Completed Patient Care team information Name Category Status Period Participants - - Proposed period not known -
--- OUTSIDE RECORDS SUMMARY | 2024-11-17 09:29 | XMS_ITS | Clinical Summary ---
Author Organization [facility] [address] Address [address] [place] [address] Care Team Providers Care Public Space Attendant Name Role Phone Elvis Lopez MD Primary Care Provider Catherine Todd MD Unavailable [phone] Allergies Active Allergy Reactions Criticality Noted Date Comments Doxycycline Monohydrate Unknown 08/29/2018 Alprazolam Other (See comments) Low 08/29/2018 Sleeps all day Amitriptyline Other (See comments) Low 08/29/2018 Sleeps all day Valdecoxib Unknown 08/29/2018 Dextran 70-Hypromellose (Pf) Unknown 019 Brompheniramine-Phenylephrine Unknown 2018 Desloratadine Unknown 08/29/2018 Codeine Meperidine Unknown 08/29/2018 Diclofenac Unknown 08/29/2018 Duloxetine Unknown 08/29/2018 Phenylephrine-Guaifenesin Unknown 08/29/2018 Rhivardxqmobsqdi-Qj-Yeghiomova Other (Se e comments) Low 08/29/2018 Hard [...] 50 mcg/actuation nasal spray Active glucosam velasquez mbd-mrchcftdw-O-Mn 359-541-86-3 mg capsule Active hydroCHLOROthiazid e (HYDRODIURIL) 25 [...] nightly as needed 06/23/19 22 Active omega 5-wrd-ezp-fish oil (Fish OiL) 100-160-1,000 mg capsule Take [...] be different from the original. Labs at [facility] prior to 3 mo f / u. 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 [...] on file Legal Sex Female 3:01 AM COMPONENTS ENGINEER Gender Identity Female 06/07/2020 11:17 AM COMPONENTS ENGINEER Sexual Orientation Straight 06/07/2020 11 :17 AM COMPONENTS ENGINEER Obstetrics History Last Filed Vital Signs Vital [...] 8:36 AM CDT Height 172.7 cm (5' 8) 04/13/2024 8:36 AM CDT Body Mass Index 32.54 04/13/2024 8:36 AM CDT Plan of Treatment Health Maintenance Due Date Last Done Comments Depression Screening 1940 Osteoporosis Screening-Bone Density Scan 1940 DTaP/Tdap/Td Vaccine (1 - Tdap) 12/30/1951 Hepatitis B Screening 1958 Pneumococcal vaccine 65+ (1 of 2 - PCV) 12/30/1959 1 Zoster Vaccine (1 of 2) 12/30/1959 Well Visit 65+ 2005 Fall Risk Assessment 10/31/2024 11/01/2023 Influenza Vaccine (Season Ended) 2025 03/31/20 18, 03/25/2018 Insurance [facility] [id number] [facility] [id number] [facility] [id number] Care Teams Public Space Attendant Relationship Specialty Start Date End Date Elvis Lopez MD [facility] [place] [address] PCP - General Family Medicine 02/04/23 Catherine Todd MD [address] DIV IM [employer]ONE MARROW TRANSPLANT, [address] [place] [address] Medical Oncologist/Regional Sales Coordinator Hematology 08/27/23
--- OUTSIDE RECORDS SUMMARY | 2024-11-17 09:29 | XMS_ITS | Referral Summary ---
Author Organization [facility] [address] Address [address] [place] [address] Care Team Providers Care Dental Appliance Fixer Name Role Phone Elvis Lopez MD Primary Care Provider [phone] Catherine Todd MD Unavailable [phone] Allergies Active Allergy Reactions Criticality Noted Date Comments Doxycycline Monohydrate Unknown 08/29/2018 Alprazolam Other (See comments) Low 08/29/2018 Sleeps all day Amitriptyline Other (See comments) Low 08/29/2018 Sleeps all day Valdecoxib Unknown 08/29/2018 Dextran 70-Hypromellose (Pf) Unknown 019 Brompheniramine-Phenylephrine Unknown 2018 Desloratadine Unknown 08/29/2018 Codeine Meperidine Unknown 08/29/2018 Diclofenac Unknown 08/29/2018 Duloxetine Unknown 08/29/2018 Phenylephrine-Guaifenesin Unknown 08/29/2018 Oajtzgleauxyurym-Yy-Jemliywskw Other (Se e comments) Low 08/29/2018 Hard [...] 50 mcg/actuation nasal spray Active glucosam velasquez enk-itdwtbjmf-V-Mn 060-589-41-3 mg capsule Active hydroCHLOROthiazid e (HYDRODIURIL) 25 [...] nightly as needed 06/23/19 22 Active omega 9-lvz-jpd-fish oil (Fish OiL) 100-160-1,000 mg capsule Take [...] be different from the original. 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 Gender Identity Female 06/07/2020 11:17 AM WHEAT FARMER Sexual Orientation Straight 06/07/2020 11 :17 AM WHEAT FARMER Last Filed Vital Signs Vital Sign Reading [...] Plan of Treatment Not on file Insurance [facility] [id number] [facility] [id number] [facility] [id number] Care Teams Dental Appliance Fixer Relationship Specialty Start Date End Date Elvis Lopez MD [address] [place] [address] [address] [place], [place] [id number] PCP - General Family Medicine 02/04/23 Catherine Todd MD [address] [facility] IM BONE MARROW TRANSPLANT, [address] [place] [address] Medical Oncologist/Core Manager Hematology 08/27/23
--- OUTSIDE RECORDS SUMMARY | 2024-11-17 09:29 | XMS_ITS ---
Author Organization [facility] [address] Address [address] [place] [address] Care Team Providers Care Graphic Design Teacher Name Role Phone Elvis Lopez MD Primary Care Provider [phone] Catherine Todd MD Unavailable [phone] Active Problems Patient Care Coordination No te Formatting of this note migh t be different from the original. Labs at [facility] [place] prior to 3 mo f / u. 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 Other chest pain 01/02/2021 Mitral regurgitation 06/07/2020 Tricuspid regurgitation 06/07/2020 Pulmonary hypertension ([facility]/HCC) 06/07/2020 Multiple myeloma not having achieved remission [...] Daratumumab / Lenalidomide (D-R Maintenance) - Myeloma 6/2801/13/2024 bortezomib (VELCADE)[facility] (DARZALEZ FASPRO) (DARZELEX FASPRO)asthya kendall (REVLIMID) Patient Preference Catherine Todd MD Treatment not started Lifetime Dose Tracking * Chemical Lifetime Dose Automatic Entry Manual Entr y Fluoro Time 0.355 minutes 0.355 minutes 0 minutes Air kerma at the reference point (Ka,r) 2.78 mGy 2 .78 mGy 0 mGy
== END 2024-11-17 09:22 | disposition home or self-care (01) ==
LOC: ANHIMG 09:24
PROVIDERS: PCP Family Medicine; Visit Provider Surgery
DX: N64.4 Mastodynia (principal)
CPT/HCPCS: 76642; 77062; 77066; G0279

== ENCOUNTER 2024-12-28 10:13 | Outpatient (CLI) | payer OTHER, SELFPAY ==
--- NOTE | ~2024-12-28 | XR_ITS ---
EXAMINATION: XR fl port a cath w contrast DATE: 12/28/2024 11:29 INDICATION: Port catheter dysfunction TECHNIQUE: A total of 356 fluoroscopic images of the the central chest centered at the distal tip of the right subclavian central venous port catheter were obtained during rapid contrast injection perfo rmed by the PICC line nurse, Alison Meneses. The amount of fluoroscopy time used during this procedure was 0.4 minutes. A total of 356 fluoroscopic images were recorded. Total DAP was 1.942 Gycm^2. COMPARISON: None. FINDINGS: There is a narrow jet of contrast extending distally from the tip of the central venous port catheter which is located at the superior cavoatrial junction. This suggests partial occlusion at the tip pot entially due to fibrin sheath. Reviewed, dictated and finalized at location A.
--- OUTSIDE RECORDS SUMMARY | 2024-12-28 10:19 | XMS_ITS | Clinical Summary ---
Author Organization [employer] [facility] Address [address] [place] [address] Care Team Providers Care Fiberglass Bonding Machine Tender Name Role Phone Pedro Ortiz DO Primary Care Provider [phone] Allergies Active Allergy Reactions Criticality Noted Date Comments Acetaminophen-Pamabrom Unknown 08/29/2018 Alprazolam Other (See Comments) Low 08/29/2018 Sleeps all day Amitriptyline Rash Low 08/29/2018 Sleeps all day Brompheniramine-Phenylephrine Unknown 2018 Carbinoxamine-Pseudoephedrine Unknown 2018 Carboxymethylcellulose Sodium Unknown 2018 Codeine Anxiety Low 11/26/2020 Desloratadine Unknown 08/29/2018 Dextran 70-Hypromellose (Pf) Unknown 019 Diclofenac Unknown 08/29/2018 Doxycycline Monohydrate Unknown 08/29/2018 Ncxfvzuho-Ded-Mz-Acetaminophen Unknown 08/29 Duloxetine Unknown 08/29/2018 Levofloxacin Unknown [...] T PO QD 02/28/20 19 Active omega 4-hbb-rdt-fish oil (Fish Oil) 100-160-1,000 mg Capsule Take [...] DAYS THEN 7 DAYS OFF 14 Capsule 08/16/19 25 Active pregabalin (LYRICA) 75 mg Capsule TAKE 1 CAPSULE(75 MG) BY MOUTH EVERY 12 HOURS 60 Capsule 1 12/28/19 25 Active pregabalin (LYRICA) 75 mg Capsule Take 1 Capsule (75 mg) by mouth every 12 hours. 60 Capsule 11/29/19 25 025 Discontinued Active Problems Problem Noted Date Diagnosed Date Fibromyalgia 11/26/2020 Spondylolisthesis at L4-L5 level 11/26/2020 Encounters Date Type Department Care Team Description 12/27/2024 Refill [facility] - [place] [address] [place] [address] Brant Ratliff MD 12/25/2024 Telephone [facility] - [place] [address] [place] [address] Brant Ratliff MD Pain 12/19/2024 Telephone [facility] - [place] [address] [place] [address] Brant Ratliff MD Pain 12/18/2024 Orders Only [facility] - [place] [address] [place] [address] Brant Ratliff MD Multiple myeloma not having achieved remission (CMS/HCC); Benign hypertension 12/14/2024 Telephone [facility] - [place] [address] [place] [id number] Brant Ratliff MD Port Dye Study 12/06/2024 External Device Data STL ABSTRACTION Provider, Abstract 12/05/2024 External Device Data STL ABSTRACTION Provider, Abstract 12/04/2024 Orders Only [facility] - [place] [address] [place] [phone] Brant Ratliff MD Multiple myeloma not having achieved remission (CMS/HCC); Benign hypertension 12/01/2024 Orders Only [facility] - [place] [address] [place] [phone] Brant Ratliff MD 11/28/2024 Refill [facility] - [place] [address] [place] [id number] Brant Ratliff MD 11/27/2024 Orders Only [facility] - [place] [address] [place] [id number] Brant Ratliff MD Multiple myeloma not having achieved remission (CMS/HCC) (Primary Dx) 11/23/2024 Telephone [facility] - [place] [address] [place] [phone] Brant Ratliff MD Pain 11/20/2024 Orders Only [facility] - [place] [address] [place] [address] Brant Ratliff MD Multiple myeloma not having achieved remission (CMS/HCC); Benign hypertension 11/09/2024 External Device Data STL ABSTRACTION Provider, Abstract 11/08/2024 External Device Data STL ABSTRACTION Provider, Abstract 11/07/2024 External Device Data STL ABSTRACTION Provider, Abstract 11/06/2024 Orders Only [facility] H[facility] [address] [place] [phone] Brant Ratliff MD Multiple myeloma not having achieved remission (CMS/HCC); Benign hypertension 11/02/2024 4:30 PM CDT Telephone Check Up [facility] Hematology [facility] [address] [place] [phone] Brant Ratliff MD Multiple myeloma not having achieved remission (CMS/HCC) (Primary Dx) 10/31/2024 Orders Only [facility] [address] [place] [address] Brant Ratliff MD 10/24/2024 External Device Data STL ABSTRACTION Provider, Abstract 10/23/2024 Orders Only [facility] [place] [address] [place] [address] Brant Ratliff MD Multiple myeloma not having achieved remission (CMS/HCC); Benign hypertension 10/16/2024 Orders Only [facility] [place] [address] [place] [id number] Brant Ratliff MD 10/09/2024 Orders Only [facility] [place] [address] [place] [address] Brant Ratliff MD Multiple myeloma not having achieved remission (CMS/HCC); Benign hypertension 10/02/2024 Orders Only [facility] [address] [place] [address] Brant Ratliff MD 09/28/2024 Telephone [facility] [address] [place] [address] Brant Ratliff MD Breast pain from Last 3 Months Family History Medical [...] on file Legal Sex Female 5:17 AM 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 Gender Identity Not on file Sexual Orientation Not on file Last Filed Vital Signs Vital Sign Reading Time Taken Comments Blood Pressure 152/83 08/21/2024 1:07 PM GUEST ASSOCIATE Pt is anxious Pulse 79 08/21/2024 1:05 PM GUEST ASSOCIATE Temperature 35.3 C (95.5 F) 08/21/2024 1:05 PM GUEST ASSOCIATE Respiratory Rate 15 08/21/2024 1:05 PM GUEST ASSOCIATE Oxygen Saturation 93% 08/21/2024 1:0 5 PM GUEST ASSOCIATE Inhaled Oxygen Concentration - - Weight 97.6 kg (215 lb 3.2 oz) 08/21/2024 1:05 PM GUEST ASSOCIATE Height 172.7 cm (5' 8) 01/11/2024 10:4 4 AM CDT Body Mass Index 32.72 01/11/2024 10:44 AM CDT Plan of Treatment Upcoming Encounters Date Type Department Care Team (Late st Contact Info) Description 02/05/2025 9:45 AM CDT Office Visit [facility] [place] [address] [place] [address] Brant Ratliff MD [address] [facility] [address] [place] [address] Health Maintenance Due Date Last Done Comments DTAP/TDAP/TD VACCINES (1 - Tdap) 12/30/1959 PNEUMOCOCCAL VACCINE 50+ YEARS (1 of 2 - PCV) 12/29/18 60 03/31/2018 ZOSTER VACCINE (1 of 2) 12/30/1959 OSTEOPOROSIS SCREENING 2005 RSV VACCINE (60+ or ) (1 - 1-dose 75+ series) 12/30/2015 Preventative Visit- Commercial 06/21/2024 INFLUENZA VACCINE (#1) 2025 03/25/2018 Procedures Procedure Name Priority Date/Time Associated Diagnosis Comments COMPREHENSIVE METABOLIC PANEL Routine 11/24/2024 2:08 PM CDT BASIC METABOLIC PANEL Routine 11/24/2024 1:54 PM CDT CBC WITH AUTODIFFERENTIAL Routine 2024 1:51 PM CDT KAPPA/LAMBDA LIGHT CHAINS Routine 2024 3:52 PM CDT COMPREHENSIVE METABOLIC PANEL Routine 10/26/2024 2:26 PM CDT IGG Routine 10/13/2024 10:58 AM CDT COMPREHENSIVE METABOLIC PANEL Routine 09/29/2024 12:26 PM CDT BASIC METABOLIC PANEL Routine 09/29/2024 11:55 AM CDT COMPREHENSIVE METABOLIC PANEL Routine 09/29/2024 11:51 AM CDT from Last 3 Months Results * COMPREHENSIVE METABOLIC PANEL (11/24/2024 2:08 PM CDT) Only the most recent of4 resultswithin the time period is included. Blood us Brant Ratliff MD CHEMISTRY ORDERABLES Final Resu lt * BASIC METABOLIC PANEL (11/24/2024 1:54 PM CDT) Only the most recent of2 resultswithin the time period is included. Blood us Brant Ratliff MD CHEMISTRY ORDERABLES Final Resu lt * CBC WITH AUTODIFFERENTIAL (11/24/2024 1:51 PM CDT) Blood us Brant Ratliff MD HEMATOLOGY ORDERABLES Final Res ult * KAPPA/LAMBDA, FREE LIGHT CHAINS (10/26/2024 3:52 PM CDT) Blood Brant Ratliff MD CHEMISTRY ORDERABLES Final Resu lt * IGG (10/13/2024 10:58 AM CDT) Blood us Brant Ratliff MD CHEMISTRY ORDERABLES Final Resu lt from Last 3 Months Insurance RX [facility]EFIT [facility] Care Teams Fiberglass Bonding Machine Tender Relationship Specialty Start Date End Date Pedro Ortiz DO [address] [place] [address] PCP - General Family Practice 07/14/24
--- OUTSIDE RECORDS SUMMARY | 2024-12-28 10:19 | XMS_ITS ---
Author Organization [facility] [address] Address [address] [place] [address] Care Team Providers Care Film Recordist Name Role Phone Elvis Lopez MD Primary Care Provider [phone] Catherine Todd MD Unavailable [phone] Active Problems Patient Care Coordination No te Formatting of this note migh t be different from the original. Labs at [facility] prior to 3 mo f / u. 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 Other chest pain 01/02/2021 Mitral regurgitation 06/07/2020 Tricuspid regurgitation 06/07/2020 Pulmonary hypertension ([facility]/HCC) 06/07/2020 Multiple myeloma not having [...] (D-R Maintenance) - Myeloma 6/2801/13/2024 bortezomib (VELCADE)[facility]DARZALEZ FASPRO) (DARZELEX FASPRO)sathya kendall (REVLIMID) Patient Preference Catherine Todd MD Treatment not started Lifetime Dose Tracking * Chemical Lifetime Dose Automatic Entry Manual Entr y Fluoro Time 0.355 minutes 0.355 minutes 0 minutes Air kerma at the reference point (Ka,r) 2.78 mGy 2 .78 mGy 0 mGy
--- OUTSIDE RECORDS SUMMARY | 2024-12-28 10:19 | XMS_ITS | Encounter Summary ---
Author Organization [facility] [employer] Address [address] [place] [address] Care Team Providers Care Jawbone Puller Name Role Phone Pedro Ortiz DO Primary Care Provider [phone] Reason for Visit * Reason Comments Med Refill Encounter Details Date Type Department Care Team (Late Contact Info) Description 12/27/2024 Refill [facility] H[facility]ology [place] [address] [place] [address] Brant Ratliff MD [facility] [address] [place] [address] Social History Tobacco Use Types Packs/Day Years Used Date Smoking Tobacco: Never Smokeless Tobacco: Never Alcohol Use Standard Drinks/Week Comments Never 0 (1 standard drink = 0.6 oz pur e alcohol) Comments Unknown Sex and Gender Information Value Date Recorded Sex Assigned at Not on file Legal Sex Female 5:17 AM MEAT TEAM LEAD Gender Identity Not on file Sexual Orientation Not on file documented as of this encounter Plan of Treatment Upcoming Encounters Date Type Department Care Team (Late st Contact Info) Description 02/05/2025 9:45 AM CDT Office Visit [facility] On[facility] and Hematology - [place] [address] [place] [address] Brant Ratliff MD [address] [place] [address] documented as of this encounter Visit Diagnoses Not on filedocumented in this encounter Care Teams Jawbone Puller Relationship Specialty Start Date End Date Pedro Ortiz DO [address] [place] [address] PCP - General Family Practice 07/14/24 documented as of this encounter
--- OUTSIDE RECORDS SUMMARY | 2024-12-28 10:19 | XMS_ITS | Referral Summary ---
Author Organization [facility] [address] Address [address] [place] [address] Care Team Providers Care Onion Topper Name Role Phone Elvis Lopez MD Primary Care Provider [phone] Catherine Todd MD Unavailable [phone] Allergies Active Allergy Reactions Criticality Noted Date Comments Doxycycline Monohydrate Unknown 08/29/2018 Alprazolam Other (See comments) Low 08/29/2018 Sleeps all day Amitriptyline Other (See comments) Low 08/29/2018 Sleeps all day Valdecoxib Unknown 08/29/2018 Dextran 70-Hypromellose (Pf) Unknown 019 Brompheniramine-Phenylephrine Unknown 2018 Desloratadine Unknown 08/29/2018 Codeine Meperidine Unknown 08/29/2018 Diclofenac Unknown 08/29/2018 Duloxetine Unknown 08/29/2018 Phenylephrine-Guaifenesin Unknown 08/29/2018 Qhaabdlkeyerjokh-Wj-Stbrwdmprz Other (Se e comments) Low 08/29/2018 Hard [...] 50 mcg/actuation nasal spray Active glucosam velasquez mah-wptkprvyy-O-Mn 824-104-86-3 mg capsule Active hydroCHLOROthiazid e (HYDRODIURIL) 25 [...] nightly as needed 06/23/19 22 Active omega 3-deh-stl-fish oil (Fish OiL) 100-160-1,000 mg capsule Take [...] be different from the original. [facility] / u. [...] on file Legal Sex Female 3:01 AM CABLE FERRY OPERATOR Gender Identity Female 06/07/2020 11:17 AM CABLE FERRY OPERATOR Sexual Orientation Straight 06/07/2020 11 :17 AM CABLE FERRY OPERATOR Last Filed Vital Signs Vital Sign [...] Plan of Treatment Not on file Insurance [facility] [id number] [facility] [id number] [facility] [id number] Care Teams Onion Topper Relationship Specialty Start Date End Date Elvis Lopez MD [address] [place] [address] [address] [place], [place] [phone] PCP - General Family Medicine 02/04/23 Catherine Todd MD [address] [facility] [employer]ONE MARROW TRANSPLANT, [address] [place] [address] Medical Oncologist/Timber Deadener Hematology 08/27/23
--- OUTSIDE RECORDS SUMMARY | 2024-12-28 10:19 | XMS_ITS | Encounter Summary ---
Author Organization [facility] Address [address] [place] [address] Care Team Providers Care Breakfast Bar Attendant Name Role Phone Pedro Ortiz DO Primary Care Provider [phone] Encounter Details Date Type Department Care Team (Late st Contact Info) Description 09/25/2002 Outpatient Historical [facility] MRI DEPT Michael Hicks MD [address] [facility] [address] [place] [address] DEVIATED NASAL SEPTUM (Primary Dx) Social History Tobacco Use Types Packs/Day Years Used Date Smoking Tobacco: Never Assessed Comments Unknown Sex and Gender Information Value Date Recorded Sex Assigned at Not on file Legal Sex Female 5:17 AM POLITICAL SCIENTIST Gender Identity Not on file Sexual Orientation Not on file documented as of this encounter Plan of Treatment Upcoming Encounters Date Type Department Care Team (Late Contact Info) Description 02/05/2025 9:45 AM CDT Office Visit [facility] - [place] [address] [facility] [address] [place] [address] Brant Ratliff MD [address] [facility] [address] [place] [address] documented as of this encounter Visit Diagnoses Diagnosis Deviated nasal septum- Primary documented in this encounter Care Teams Breakfast Bar Attendant Relationship Specialty Start Date End Date Pedro Ortiz DO [address] [place] [phone] PCP - General Family Practice 07/14/24 documented as of this encounter
--- OUTSIDE RECORDS SUMMARY | 2024-12-28 10:19 | XMS_ITS ---
Author Organization Unknown Medications Medication Instructions Effective Dates (start - stop) Status montelukast 10 MG Oral Tablet 2023-06-15 00:00:00Z - Completed eszopiclone 3 MG Oral Tablet [id number] 0:00:00Z - Completed milnacipran hydrochloride 25 MG Oral Tablet [Savella] - Completed atorvastatin 20 MG Oral Tablet 2023-04-25 T00:00:00Z - Completed atorvastatin 20 MG Oral Tablet 2023-05-23 T00:00:00Z - Completed milnacipran hydrochloride 25 MG Oral Tablet [Savella] - Completed levothyroxine sodium 0.05 MG Oral Tablet - Completed atorvastatin 20 MG Oral Tablet 2023-04-18 T00:00:00Z - Completed eszopiclone 3 MG Oral Tablet [id number] 0:00:00Z - Completed montelukast 10 MG Oral Tablet 2023-12-22 00:00:00Z - Completed levothyroxine sodium 0.05 MG Oral Tablet - Completed ramipril 10 MG Oral Capsule [id number] :00:00Z - Completed milnacipran hydrochloride 25 MG Oral Tablet [Savella] - Completed ramipril 10 MG Oral Capsule [id number] :00:00Z - Completed atorvastatin 20 MG Oral Tablet 2023-10-19 T00:00:00Z - Completed gabapentin 600 MG Oral Tablet 2023-06-16 00:00:00Z - Completed sulfamethoxazole 800 MG / trimethoprim 160 MG Oral Tablet - Compl eted gabapentin 600 MG Oral Tablet 2023-03-18 00:00:00Z - Completed gabapentin 600 MG Oral Tablet 2023-11-03 00:00:00Z - Completed eszopiclone 3 MG Oral Tablet [id number] 0:00:00Z - Completed milnacipran hydrochloride 25 MG [...] - Completed ezetimibe 10 MG Oral Tablet [id number] :00:00Z - Completed montelukast 10 MG Oral Tablet 2023-06-16 00:00:00Z - Completed eszopiclone 3 MG Oral Tablet [id number] 0:00:00Z - Completed ezetimibe 10 MG Oral Tablet [id number] :00:00Z - Completed lidocaine 0.05 MG/MG Medicated Patch 202300:00:00Z - Completed eszopiclone 3 MG Oral Tablet [id number] 0:00:00Z - Completed levothyroxine sodium 0.05 MG Oral Tablet - Completed eszopiclone 3 MG Oral Tablet [id number] 0:00:00Z - Completed atorvastatin 20 MG Oral Tablet 2023-04-16 T00:00:00Z - Completed metronidazole 0.01 MG/MG Topical Gel 202300:00:00Z - Completed cholecalciferol 1.25 MG Oral Capsule 202200:00:00Z - Completed 24 HR metformin hydrochlorid e 500 MG Extended Release Oral Tablet - Complete d ramipril 10 MG Oral Capsule [id number] :00:00Z - Completed atorvastatin 20 MG Oral Tablet 2023-08-13 T00:00:00Z - Completed lidocaine 0.05 MG/MG Medicated Patch 2023T00:00:00Z - Completed eszopiclone 3 MG Oral Tablet [id number] 0:00:00Z - Completed 24 HR metoprolol succinate 1 00 MG Extended Release Oral Tablet - Complete d acyclovir 400 MG Oral Tablet [id number] 0:00:00Z - Completed lidocaine 0.05 MG/MG Medicated [...] - Completed ramipril 10 MG Oral Capsule [id number] :00:00Z - Completed ramipril 10 MG Oral Capsule [id number] :00:00Z - Completed acyclovir 400 MG Oral Tablet [id number] 0:00:00Z - Completed atorvastatin 20 MG Oral Tablet 2023-05-26 T00:00:00Z - Completed 24 HR metoprolol succinate 1 00 MG Extended Release Oral Tablet - Complete d atorvastatin 20 MG Oral Tablet 2023-01-25 T00:00:00Z - Completed metronidazole 0.01 MG/MG Topical Gel 202200:00:00Z - Completed ezetimibe 10 MG Oral Tablet [id number] :00:00Z - Completed eszopiclone 3 MG Oral Tablet [id number] 0:00:00Z - Completed lidocaine 0.05 MG/MG Medicated Patch 202200:00:00Z - Completed eszopiclone 3 MG Oral Tablet [id number] 0:00:00Z - Completed metronidazole 0.01 MG/MG Topical [...] - Completed amlodipine 5 MG Oral Tablet [id number] :00:00Z - Completed eszopiclone 3 MG Oral Tablet [id number] 0:00:00Z - Completed milnacipran hydrochloride 25 MG Oral Tablet [Savella] - Completed montelukast 10 MG Oral Tablet 2023-09-25 00:00:00Z - Completed metronidazole 0.01 MG/MG Topical Gel 202300:00:00Z - Completed eszopiclone 3 MG Oral Tablet [id number] 0:00:00Z - Completed eszopiclone 3 MG Oral Tablet [id number] 0:00:00Z - Completed atorvastatin 20 MG Oral Tablet 2023-07-18 T00:00:00Z - Completed 24 HR metoprolol succinate 1 00 MG Extended Release Oral Tablet - Complete d ezetimibe 10 MG Oral Tablet [id number] :00:00Z - Completed levothyroxine sodium 0.05 MG Oral Tablet - Completed gabapentin 600 MG Oral Tablet 2023-03-11 00:00:00Z - Completed eszopiclone 3 MG Oral Tablet [id number] 0:00:00Z - Completed ezetimibe 10 MG Oral Tablet [id number] :00:00Z - Completed lidocaine 0.05 MG/MG Medicated Patch 202300:00:00Z - Completed metronidazole 0.01 MG/MG Topical Gel 202200:00:00Z - Completed fluticasone propionate 0.05 MG/ACTUAT Metered Dose Nasal Depauw - Co mpleted montelukast 10 MG Oral Tablet 2023-03-18 00:00:00Z - Completed hydrochlorothiazide 25 MG Or al Tablet - Completed eszopiclone 3 MG Oral Tablet [id number] 0:00:00Z - Completed - - Compl eted hydrochlorothiazide 25 MG Or al Tablet - Completed levothyroxine sodium 0.05 MG Oral Tablet - Completed milnacipran hydrochloride 25 MG Oral Tablet [Savella] - Completed Patient Care team information Name Category Status Period Participants - - Proposed period not known -
--- OUTSIDE RECORDS SUMMARY | 2024-12-28 10:19 | XMS_ITS | Clinical Summary ---
Author Organization [facility] [place] [address] Address [address] [place] [address] Care Team Providers Care Director Corporate Name Role Phone Elvis Lopez MD Primary Care Provider [phone] Catherine Todd MD Unavailable [phone] Allergies Active Allergy Reactions Criticality Noted Date Comments Doxycycline Monohydrate Unknown 08/29/2018 Alprazolam Other (See comments) Low 08/29/2018 Sleeps all day Amitriptyline Other (See comments) Low 08/29/2018 Sleeps all day Valdecoxib Unknown 08/29/2018 Dextran 70-Hypromellose (Pf) Unknown 019 Brompheniramine-Phenylephrine Unknown 2018 Desloratadine Unknown 08/29/2018 Codeine Meperidine Unknown 08/29/2018 Diclofenac Unknown 08/29/2018 Duloxetine Unknown 08/29/2018 Phenylephrine-Guaifenesin Unknown 08/29/2018 Sthqkfvrzbbhexsf-Re-Hbzxatmyfs Other (Se e comments) Low 08/29/2018 Hard [...] 50 mcg/actuation nasal spray Active glucosam velasquez zmn-hpyqznbjw-G-Mn 949-025-78-3 mg capsule Active hydroCHLOROthiazid e (HYDRODIURIL) 25 [...] nightly as needed 06/23/19 22 Active omega 7-qsd-prg-fish oil (Fish OiL) 100-160-1,000 mg capsule Take [...] on file Legal Sex Female 3:01 AM [employer]YE[employer] Gender Identity Female 06/07/2020 11:17 AM EYEGLASS C[employer]TER Sexual Orientation Straight 06/07/2020 11 :17 AM EYEGLASS CUTTER Obstetrics History Last Filed Vital Signs Vital [...] Fall Risk Assessment 10/31/2024 11/01/2023 Influenza Vaccine (#1) 2025 03/31/2018, 2017 Insurance [facility] [id number] [facility] [id number] [facility] [id number] Care Teams Director Corporate Relationship Specialty Start Date End Date Elvis Lopez MD [address] [place] [address] [place] [address] PCP - General Family Medicine 02/04/23 Catherine Todd MD [address] [employer], [address] [place] [address] Medical Oncologist/Appraiser Personal Property Hematology 08/27/23
== END 2024-12-28 10:14 | disposition home or self-care (01) ==
PROVIDERS: PCP Family Medicine; Visit Provider Internal Medicine Hematology & Oncology
DX: C90.00 Multiple myeloma not having achieved remission (principal)
CPT/HCPCS: 36598

== ENCOUNTER 2025-01-05 11:00 | Outpatient (CLI) | payer OTHER, SELFPAY ==
--- NOTE | ~2025-01-05 | DEXA_ITS ---
Bone Density Report Name: RIGOBERTO BELL Age: 84 Sex: Female Ethnicity: White Date of : 1940 Indication: postmenopausal; screening for osteoporosis; height loss; history of glucocorticoids; cancer; hysterectomy; Referring Provider: CRISTELA DAY Study: Bone densitometry was performed. Exam Date: January 05, 2025 Accession number: [id number] Bone Density: Region BMD T-score Z-score Classification AP Spine(L1, L2) 1.034 0.5 3.2 Normal Femoral Neck (Left) 0.791 -0.5 2.0 Normal Total Hip (Left) 0.969 0.2 2.5 Normal Femoral Neck (Right) 0.852 0.0 2.5 Normal Total Hip (Right) 1.020 0.6 2.9 Normal Total Hip Mean 0.995 0.4 2.7 Normal World Health Organization criteria for BMD impression classify patients as: Normal (T-score at or above -1.0), Osteopenia (T-score between -1.0 and -2.5), or Osteoporosis (T-score at or below -2.5). 10-year Fracture Risk: FRAX not reported because: All T-scores for Spine Total, Hip Total, Femoral Neck at or above -1.0 Previous Exams: -- Region Exam Age BMD T-score BMD Change BMD Change Date g/cm2 vs Baseline vs Previous -- AP Spine (L1-L2) 01/05/2025 84 1.034 0.5 -3.5%* -3.5%* 02/21/2015 74 1.072 0.8 Total Hip(Left) 01/05/2025 84 0.969 0.2 -2.0% -2.0% 02/21/2015 74 0.988 0.4 Total Hip(Right) 01/05/2025 84 1.020 0.6 -0.1% -0.1% 02/21/2015 74 1.022 0.7 -- *Denotes significance at 95% confidence level, LSC for AP Spine = 0.022 g/cm2, LSC for Total Hip = 0.027 g/cm2 Clinical Information Provided by Patient: Has taken Glucocorticoids Has used the following medications: HRT (i.e. estrogen/hormone therapy), Calcium Has the following medical conditions: Cancer, Hysterectomy Patient maximum height was 68 Menopause Age: 39 No regular weight bearing exercise Onset of menses at age 14 Number of children 2 Impression: The patient has normal bone mass. The patient has risk factors, including: history of glucocorticoid therapy. The BMD for the AP Spine (L1-L2) decreased, changing by -3.5% since the last DXA exam. Discussion: BONE DENSITY IS ABOVE THE MINIMUM DESIRABLE LEVEL AT ALL SKELETAL SITES TESTED. This patient?s bone mineral density is above the minimum desirable level (T-score -1.0 or better) at all sites measured. The patient should follow a healthful lifestyle (good nutrition with adequate calcium and vitamin D, and appropriate weight-bearing exercise). Follow-Up: Consider repeating this study in 3 to 4 years to reassess this patient's status, or sooner if there is some new clinical indication. Reported by: SHIRA on 01/05/2025 11:32:00 AM. Reviewed, dictated and finalized at location A.
== END 2025-01-05 11:01 | disposition home or self-care (01) ==
LOC: MICIMG 11:01
PROVIDERS: PCP Family Medicine; Visit Provider Family Medicine
DX: C90.00 Multiple myeloma not having achieved remission (principal); Z78.0 Asymptomatic menopausal state
CPT/HCPCS: 77080